=== PATIENT | female | born 1985 | race Caucasian/White ===

== ENCOUNTER 2016-07-08 15:40 | Emergency (ER) | payer MEDICAID ==
[2016-07-08] MEDS ORDERED: guaiFENesin/DEXTROMETHORPHAN 10 ML UDC PO STA (17:22)
[2016-07-08] MEDS ORDERED: IBUPROFEN 400 MG TABLET PO STA (17:58)
[2016-07-08] MEDS ORDERED: BENZONATATE 100 MG CAPSULE PO STA (17:59)
[2016-07-08] MEDS ORDERED: IBUPROFEN 400 MG TABLET PO ONE (18:16)
[2016-07-08] MEDS ORDERED: BENZONATATE 100 MG CAPSULE PO ONE (18:16)
== END 2016-07-08 18:41 | disposition home or self-care (01) ==
DX: J40 Bronchitis, not specified as acute or chronic (principal); F17.200 Nicotine dependence, unspecified, uncomplicated; M79.7 Fibromyalgia
CPT/HCPCS: 71020; 81025; 87275; 87276; 99283; A9270

== ENCOUNTER 2016-12-30 21:01 | Emergency (ER) | payer MEDICAID ==
--- NOTE | 2016-12-30 21:11 | ED Physician Documentation ---
PD HPI LOWER EXT INJURY - Stated complaint Stated Complaint: KNEE PX - Chief complaint Chief Complaint: Ext Problem - History obtained from History obtained from: Patient - History of Present Illness PD HPI LOW EXT INJURY LOCATION: Left, Knee Type of injury: Other (no injury) Timing - onset: How many days ago (few) Worsened by: Moving, Other (weight bearing.) Similar symptoms before: Has not had sx before - Treatment prior to arrival Treatment prior to arrival: Ibuprofen 4 hours prior to arrival. - Additional information Additional information: The patient is a 31-year-old female who presents with left knee pain that started about 2 days ago, and has been getting progressively worse. She denies any specific injury, but states the pain started after she tried doing the splits. The pain is worse with flexion of her knee or with weightbearing. 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 She denies history of similar symptoms in the past. Review of Systems Constitutional: denies: Fever Respiratory: denies: Dyspnea Skin: denies: Rash Musculoskeletal: reports: Joint pain (left knee), Pain with weight bearing. 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 - Present Medications Home Medications: Ambulatory Orders Medication Instructions Recorded Confirmed Amox/Clav 875/125 [Augmentin] 1 each PO Q12H #14 tablet 09/23/16 Oxycodone HCl/Acetaminophen 1 - 2 each PO Q6HR PRN #12 tablet 09/23/16 [Percocet 5-325 mg Tablet] HYDROcod/ACETAM 5/325 [[place] 5/325] 1 - 2 ea PO Q6H PRN #20 tablet 12/30/16 - Allergies Allergies/Adverse Reactions: Allergies Allergy/AdvReac Type Severity Reaction Status Date / Time codeine AdvReac Intermediate Rash Verified 08/10/15 22:39 Penicillins AdvReac Intermediate Rash Verified 08/10/15 22:39 - Social History Does the pt smoke?: Yes Smoking Status: Current every day smoker Does the pt drink ETOH?: Yes Does the pt have substance abuse?: Yes - Immunizations Immunizations are current?: Yes Immunizations: TDAP current <10years - POLST Patient has POLST: No PD ED PE NORMAL - Vitals Vital signs reviewed: Yes (Initially hypertensive) - General General: Alert and oriented X 3, Well developed/nourished - HEENT HEENT: Atraumatic - Respiratory Respiratory: No respiratory distress - Derm Derm: No rash - Extremities Extremities: No deformity, No edema, No calf tenderness / cord, Other (There is tenderness to palpation over the infrapatellar aspect of the left knee anteriomedially. There is no swelling, erythema, or warmth to palpation. No effusion is detected. There is no tenderness to palpation along the medial joint line, lateral joint line, or the popliteal fossa. She is able to extend fully and can flex to 90, although flexion exacerbates the discomfort. There is no ligamentous instability detected. Distal neurovascular is intact.) - Neuro Neuro: Alert and oriented X 3, No motor deficit, No sensory deficit Results - Vitals Vitals: Oxygen O2 Source Room air - Rads (name of study) left knee Radiology: Prelim report reviewed, EMP read contemporaneously, See rad report ( Normal knee radiography.) PD MEDICAL DECISION MAKING - ED course Complexity details: reviewed results, re-evaluated patient, considered differential, d/w patient ED course: The patient's presentation is most consistent with strain of the left knee. I suspect her doing the splits was the exacerbating event. X-ray of the knee reveals no acute bony abnormality. Treatment in the emergency department included application of a knee immobilizer. Vicodin one tablet was administered orally. I discussed with her the expected course of injury, symptomatic treatment and outpatient follow-up, as well as potentially worrisome signs or symptoms that should prompt reevaluation in the emergency department. She is being discharged with prescription for Vicodin, 20 tablets. Departure - Departure Disposition: 01 Home, Self Care Clinical Impression: Knee strain Qualifiers: Encounter type: initial encounter Laterality: left Qualified Code(s): S86.912A - Strain of unspecified muscle(s) and tendon(s) at lower leg level, left leg, initial encounter Condition: Stable Instructions: ED Sprain Knee Prescriptions: HYDROcod/ACETAM 5/325 [[place] 5/325] 1 - 2 ea PO Q6H PRN #20 tablet PRN Reason: Pain Comments: Use the knee immobilizer for comfort. Apply icepack intermittently for the next 3 or 4 days. Continue using ibuprofen, up to 800 mg 3 times daily. You can use Vicodin as prescribed if needed for pain. Follow up with primary physician within one to 2 weeks. Call to schedule appointment. Return to the emergency department if you develop increasing pain, swelling or redness of his knee, or otherwise worsening symptoms. Forms: Activity restrictions Discharge Date/Time: 12/30/16 22:43
--- NOTE | 2016-12-30 22:07 | XRAY Preliminary Report ---
Exam: XR Knee 4 View LT IMPRESSION: Normal knee radiography. [facility] SITE ID: [id number]
--- NOTE | 2016-12-30 22:10 | XRAY Report ---
EXAM: LEFT KNEE RADIOGRAPHY EXAM DATE: 12/30/2016 09:54 PM. CLINICAL HISTORY: Left knee pain. COMPARISON: None. TECHNIQUE: 4 views. FINDINGS: Bones: Normal. No fractures or bone lesions. Joints: Normal. No effusion. No subluxations. Soft Tissues: Normal. No soft tissue swelling. IMPRESSION: Normal knee radiography. [facility] Referring Provider Line: [phone] SITE ID: [id number]
[2016-12-30] MEDS ORDERED: HYDROcod/ACET 5/325 Prepack 6 PO STA (22:20)
[2016-12-30] MEDS ORDERED: HYDROcod/ACET 5/325 Prepack 6 PO ONE (22:27)
[2016-12-30 22:44] VITALS: BP 110/70
== END 2016-12-30 22:43 | disposition home or self-care (01) ==
LOC: ED 21:01
DX: S86.912A Strain of unspecified muscle(s) and tendon(s) at lower leg level, left leg, initial encounter (principal); X50.1XXA Overexertion from prolonged static or awkward postures, initial encounter; F17.200 Nicotine dependence, unspecified, uncomplicated
CPT/HCPCS: 99283

== ENCOUNTER 2017-08-24 15:20 | Emergency (ER) | payer MEDICAID ==
[2017-08-24 15:25] VITALS: BP 140/99
[2017-08-24 15:43] LABS: BILIRUBIN,URINE NEGATIVE (NEGATIVE); GLUCOSE, URINE (UA) NEGATIVE (NEGATIVE); KETONES,URINE (UA) NEGATIVE (NEGATIVE); LEUKOCYTE ESTERASE, URINE NEGATIVE (NEGATIVE); NITRITE,URINE NEGATIVE (NEGATIVE); OCCULT BLOOD,URINE TRACE-LYSE (NEGATIVE); PH,URINE 7.5 PH (5.0-7.5); PROTEIN,URINE NEGATIVE (NEGATIVE); UROBILINOGEN,URINE 0.2 (NORMAL) E.U./dL (NORMAL)
[2017-08-24 15:46] LABS: CLARITY,URINE CLEAR (CLEAR); HCG UR QUAL NEGATIVE
--- NOTE | 2017-08-24 16:01 | ED Physician Documentation ---
PD HPI FEMALE - Stated complaint Stated Complaint: NAUSEA/ABD PX - Chief complaint Chief Complaint: General - History obtained from History obtained from: Patient, Family - History of Present Illness Timing - onset: How many weeks ago (6-8) Timing - duration: Weeks (6-8) Timing - details: Gradual onset, Still present, Waxing and waning Associated symptoms: Back pain, Pelvic pain, Vaginal discharge, Dysuria, Urinary frequency Contributing factors: Sexually active, Exposed to STD (had chlamydia 8 months ago) Similar symptoms before: Diagnosis (chlamydia/UTI) Recently seen: Not recently seen - Additional information Additional information: 31-year-old female has been having some lower abdominal cramping and urinary symptoms for about 6-8 weeks. She did take some amoxicillin that she thought helped somewhat but her symptoms are now worse and she is come in for treatment. Review of Systems Constitutional: reports: Fatigue. denies: Fever Eyes: denies: Decreased vision Ears: denies: Ear pain Nose: denies: Congestion Throat: denies: Sore throat Cardiac: denies: Chest pain / pressure, Palpitations Respiratory: denies: Dyspnea, Cough GI: reports: Abdominal Pain, Nausea. 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 - Present Medications Home Medications: Ambulatory Orders Medication Instructions Recorded Confirmed HYDROcod/ACETAM 5/325 [[place] 5/325] 1 - 2 ea PO Q6H PRN #12 tablet 08/24/17 - Allergies Allergies/Adverse Reactions: Allergies Allergy/AdvReac Type Severity Reaction Status Date / Time codeine AdvReac Intermediate Rash Verified 08/24/17 15:25 Penicillins AdvReac Intermediate Rash Verified 08/24/17 15:25 - Social History Does the pt smoke?: Yes Smoking Status: Current every day smoker Does the pt drink ETOH?: Yes Does the pt have substance abuse?: Yes - Immunizations Immunizations are current?: Yes Immunizations: TDAP current <10years - POLST Patient has POLST: No PD ED PE NORMAL - Vitals Vital signs reviewed: Yes (Hypertensive) - General General: Alert and oriented X 3, No acute distress, Well developed/nourished - HEENT HEENT: Atraumatic, PERRL - Neck Neck: Supple, no meningeal sign - Respiratory Respiratory: No respiratory distress - Abdomen Abdomen: Normal bowel sounds, Soft, Non distended, No organomegaly, Other (mild suprapubic tenderness) - Back Back: No CVA TTP, No spinal TTP - Derm Derm: Normal color, Warm and dry, No rash - Extremities Extremities: No deformity, No edema - Neuro Neuro: Alert and oriented X 3, 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 No: Vaginal Bleeding, Adnexal Mass Results - Vitals Vitals: Vital Signs - 24 hr 08/24/17 15:23 Temperature 36.8 C Heart Rate 99 Respiratory 18 Rate Blood Pressure 140/99 H O2 Saturation 100 Oxygen O2 Source Room air - Labs Labs: Laboratory Tests 08/24/17 15:35 Urine Color YELLOW Urine Clarity CLEAR Urine pH 7.5 Ur Specific [place] 1.020 Urine Protein NEGATIVE Urine Glucose (UA) NEGATIVE Urine Ketones NEGATIVE Urine Occult Blood TRACE-LYSE Urine Nitrite NEGATIVE Urine Bilirubin NEGATIVE Urine Urobilinogen 0.2 (NORMAL) Ur Leukocyte Esterase NEGATIVE Ur Microscopic Review NOT INDICATED Urine Culture Comments NOT INDICATED Urine HCG, Qual NEGATIVE Procedures - Bedside sono Bedside sono by EMP: With use of bedside ultrasound the kidneys are examined both are without evidence of hydronephrosis and are without sonographic tenderness. PD MEDICAL DECISION MAKING - ED course Complexity details: reviewed results, re-evaluated patient, considered differential, d/w patient, d/w family ED course: 31-year-old female with suprapubic pain and cramping with urinary symptoms has a negative urinalysis and she is concerned about the possibility of STD. A pelvic exam reveals a cervical discharge the cervix is not friable the culture is obtained and the patient is treated for GC and chlamydia. She does have cervical motion tenderness on exam that reproduces her symptoms. I suspect she does have chlamydia again. Departure - Departure Disposition: 01 Home, Self Care Clinical Impression: STD (female) Condition: Stable Instructions: ED Chlamydia GC Poss Culture Pend Follow-Up: [facility] [Provider Group] Prescriptions: HYDROcod/ACETAM 5/325 [[place] 5/325] 1 - 2 ea PO Q6H PRN #12 tablet PRN Reason: Pain Comments: Today you were treated for presumed chlamydia and should have some improvement in her symptoms over the next 2 days. Cultures should be available next week. It is important to have your partner treated as well. Forms: Activity restrictions
[2017-08-24] MEDS ORDERED: cefTRIAXone 250 MG VIAL IM STA (16:21)
[2017-08-24] MEDS ORDERED: AZITHROMYCIN 250 MG TABLET PO STA (16:21)
[2017-08-24] MEDS ORDERED: LIDOCAINE 1% 2 ML VIAL SUBQ ONE (16:21)
== END 2017-08-24 16:43 | disposition home or self-care (01) ==
LOC: ED 15:20
DX: A64 Unspecified sexually transmitted disease (principal); M79.7 Fibromyalgia; F17.200 Nicotine dependence, unspecified, uncomplicated
CPT/HCPCS: 81003; 81025; 87491; 87591; 96372; 99283; A9270; 81001; 87086

== ENCOUNTER 2017-09-15 23:12 | Emergency (ER) | payer MEDICAID ==
[2017-09-16] MEDS ORDERED: KETOROLAC 60 MG/2 ML VIAL IM STA (00:38)
[2017-09-16] MEDS ORDERED: DEXAMETHASONE 10 MG/ML VIAL PO STA (00:38)
--- NOTE | 2017-09-16 00:50 | ED Physician Documentation ---
History of Present Illness - Stated complaint Stated Complaint: RT FOOT PX - Chief complaint Chief Complaint: Ext Problem - History obtained from History obtained from: Patient, Friend - History of Present Illness Timing: Yesterday - Additonal information Additional information: 31-year-old female is began to have some pain in her right great toe yesterday and this pain was much worse throughout the day today she had to call out on work. She is coming to the emergency department tonight with a sore right great toe and pain with weightbearing. She states the pain is exquisite and even taking her sock off is extremely painful. She does not have any explanation for why this pain is hurting now she does not have any injury. Review of Systems Constitutional: denies: Fever, Chills, Myalgias Eyes: denies: Decreased vision Ears: denies: Ear pain Nose: denies: Congestion Throat: denies: Sore throat Cardiac: denies: Chest pain / pressure Respiratory: denies: Dyspnea, Cough GI: denies: Abdominal Pain, Nausea, Vomiting Skin: denies: Rash Musculoskeletal: reports: Joint pain, Joint swelling, Pain with weight bearing. 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 - Present Medications Home Medications: Ambulatory Orders Medication Instructions Recorded Confirmed HYDROcod/ACETAM 5/325 [[place] 5/325] 1 - 2 ea PO Q6H PRN #12 tablet 08/24/17 HYDROcod/ACETAM 5/325 [[place] 5/325] 1 - 2 ea PO Q6H PRN #15 tablet 09/16/17 - Allergies Allergies/Adverse Reactions: Allergies Allergy/AdvReac Type Severity Reaction Status Date / Time codeine AdvReac Intermediate Rash Verified 09/15/17 23:49 Penicillins AdvReac Intermediate Rash Verified 09/15/17 23:49 - Social History Does the pt smoke?: Yes Smoking Status: Current every day smoker Does the pt drink ETOH?: Yes Does the pt have substance abuse?: Yes - Immunizations Immunizations are current?: Yes Immunizations: TDAP current <10years - POLST Patient has POLST: No PD ED PE NORMAL - Vitals Vital signs reviewed: Yes (tachy and hypertensive ) - General General: Alert and oriented X 3, No acute distress, Well developed/nourished - HEENT HEENT: Atraumatic, PERRL, EOMI - Neck Neck: Supple, no meningeal sign - Respiratory Respiratory: No respiratory distress - Derm Derm: Normal color, Warm and dry, No rash - Extremities Extremities: No deformity, No edema, Other (There is exquisit tenderness to brushing up against the right great toe. There is pain with passive flexion/ extension and there is minimal swelling. Distal n/v is intact. ) - Neuro Neuro: No motor deficit, No sensory deficit Eye Opening: Spontaneous Motor: Obeys Commands Verbal: Oriented GCS Score: 15 - Psych Psych: Normal mood, Normal affect Results - Vitals Vitals: Vital Signs - 24 hr 09/15/17 23:45 Temperature 36.8 C Heart Rate 102 H Respiratory 16 Rate Blood Pressure 151/94 H O2 Saturation 99 Oxygen O2 Source Room air - Rads (name of study) right toes Radiology: Prelim report reviewed (Impression: 1. No acute fracture or dislocation seen.), EMP read indepedently, See rad report PD MEDICAL DECISION MAKING - ED course Complexity details: reviewed results, re-evaluated patient, considered differential, d/w patient, d/w family ED course: 31-year-old female without injury to her foot has developed acute right great toe pain that is exquisite. Her course is consistent with acute gout and an x- ray of the toes without evidence of fracture. She is treated here in the emergency department with dexamethasone and Toradol. Departure - Departure Disposition: 01 Home, Self Care Clinical Impression: Gout attack Qualifiers: Gout site: toe Gout etiology: unspecified cause Laterality: right Qualified Code(s): M10.9 - Gout, unspecified Condition: Stable Instructions: ED Arthritis Gout, ED Diet Gout Follow-Up: [facility] [Provider Group] Prescriptions: HYDROcod/ACETAM 5/325 [[place] 5/325] 1 - 2 ea PO Q6H PRN #15 tablet PRN Reason: Pain Forms: Activity restrictions
[2017-09-16] MEDS ORDERED: CHERRY SYRUP 10 ML UDC PO ONE (00:52)
--- NOTE | 2017-09-16 01:22 | XRAY Report ---
EXAM: RIGHT TOE RADIOGRAPHY EXAM DATE: 09/16/2017 01:10 AM. CLINICAL HISTORY: R great toe pain. COMPARISON: 02/17/2007. TECHNIQUE: 3 views. FINDINGS: Bones: No fractures seen. Joints: No dislocation. Joint spaces appear intact. Soft Tissues: Mild soft tissue swelling. IMPRESSION: 1. No acute fracture or dislocation seen. [facility] Referring Provider Line: [phone] SITE ID: [id number]
--- NOTE | 2017-09-16 01:22 | XRAY Preliminary Report ---
Exam: XR TOE(S) RT IMPRESSION: 1. No acute fracture or dislocation seen. [facility] SITE ID: [id number]
[2017-09-16 01:37] VITALS: BP 115/78
== END 2017-09-16 01:37 | disposition home or self-care (01) ==
LOC: ED 23:12
DX: M10.9 Gout, unspecified (principal); F17.200 Nicotine dependence, unspecified, uncomplicated
CPT/HCPCS: 73660; 96372; 99283; A9270

== ENCOUNTER 2018-04-23 14:23 | Emergency (ER) | payer MEDICAID ==
[2018-04-23] MEDS ORDERED: METOCLOPRAMIDE 10 MG/2 ML VIAL IVP STA (14:31)
[2018-04-23] MEDS ORDERED: SODIUM CHLORIDE 0.9% 1,000 ML IV ONE (14:31)
[2018-04-23 15:14] LABS: BASOPHILS % (AUTO) 0.5 %; EOSINOPHILS # (AUTO) 0.2 10^3/uL (0.0-0.7); EOSINOPHILS % (AUTO) 2.4 %; HGB - HEMOGLOBIN 13.3 g/dL (12.0-16.0); LYMPHOCYTES # (AUTO) 4.5 10^3/uL (1.5-3.5); LYMPHOCYTES % (AUTO) 48.8 %; MEAN CORPUSCULAR HEMOGLOBIN 31.1 pg (27.0-31.0); MEAN CORPUSCULAR HGB CONC 34.7 g/dL (32.0-36.0); MEAN CORPUSCULAR VOLUME 89.7 fL (81.0-99.0); MEAN PLATELET VOLUME 10.5 fL (7.9-10.8); MONOCYTES # (AUTO) 0.6 10^3/uL (0.0-1.0); MONOCYTES % (AUTO) 6.5 %; NEUTROPHILS # (AUTO) 3.8 10^3/uL (1.5-6.6); NEUTROPHILS % (AUTO) 41.8 %; PLT - PLATELET COUNT 190 10^3/uL (130-450); RED BLOOD COUNT 4.28 10^6/uL (4.20-5.40); RED CELL DISTRIBUTION WIDTH 12.4 % (12.0-15.0); WHITE BLOOD COUNT 9.2 x10^3/uL (4.8-10.8)
[2018-04-23 15:23] LABS: ALBUMIN/GLOBULIN RATIO 1.3 (1.0-2.2); BILIRUBIN,TOTAL 0.4 mg/dL (0.2-1.0); CALCIUM 8.6 mg/dL (8.5-10.3); CREATININE 0.6 mg/dL (0.4-1.0); TOTAL PROTEIN 7.1 g/dL (6.7-8.2)
[2018-04-23 15:27] LABS: BILIRUBIN,URINE NEGATIVE (NEGATIVE); GLUCOSE, URINE (UA) NEGATIVE (NEGATIVE); KETONES,URINE (UA) NEGATIVE (NEGATIVE); LEUKOCYTE ESTERASE, URINE NEGATIVE (NEGATIVE); NITRITE,URINE NEGATIVE (NEGATIVE); OCCULT BLOOD,URINE TRACE-LYSE (NEGATIVE); PROTEIN,URINE NEGATIVE (NEGATIVE); UROBILINOGEN,URINE 0.2 (NORMAL) E.U./dL (NORMAL)
[2018-04-23 15:31] LABS: CLARITY,URINE CLEAR (CLEAR)
[2018-04-23] MEDS ORDERED: AMOXICILLIN 250 MG CAPSULE PO STA (16:28)
--- NOTE | 2018-04-23 16:28 | ED Physician Documentation ---
History of Present Illness - Stated complaint Stated Complaint: N/V/WEAKNESS - Chief complaint Chief Complaint: Abd Pain - History obtained from History obtained from: Patient - Additonal information Additional information: 32-year-old female presents the emergency department with increasing generalized weakness with nausea and episodes of vomiting. The patient also reports a generalized abdominal cramping. The patient denies any focal area of abdominal pain or ongoing constant abdominal pain. The patient also reports a dental infection and is in the process of seeing a dentist.The patient denies chest pain, shortness of breath, dysuria or diarrhea. Symptoms are described as moderate. No other associated symptoms. No triggering factors. No relieving factors. Review of Systems Constitutional: reports: Fever, Chills, Fatigue Eyes: denies: Decreased vision Ears: denies: Ear pain Nose: denies: Rhinorrhea / runny nose Throat: reports: Dental pain / toothache Cardiac: denies: Chest pain / pressure Respiratory: denies: Cough GI: reports: Abdominal Pain, Nausea, Vomiting. 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: Yes Does the pt have substance abuse?: Yes - Immunizations Immunizations are current?: Yes Immunizations: TDAP current <10years - POLST Patient has POLST: No PD ED PE NORMAL - General General: Alert and oriented X 3, No acute distress - HEENT HEENT: Atraumatic, PERRL, EOMI, Ears normal. No: Dentition benign (The patient has multiple dental caries, on the right lower jaw several of the caries are infected with surrounding gingivitis. There is no evidence of an intraoral abscess or facial abscess or facial cellulitis.) - Neck Neck: Supple, no meningeal sign - Cardiac Cardiac: RRR, Strong equal pulses - Respiratory Respiratory: No respiratory distress, Clear bilaterally - Abdomen Abdomen: Soft, Non tender, Non distended - Derm Derm: Normal color - Extremities Extremities: No deformity, No edema - Neuro Neuro: Alert and oriented X 3, Normal speech - Psych Psych: Normal mood Results - Vitals Vitals: Vital Signs - 24 hr 04/23/18 04/23/18 14:27 16:36 Temperature 36.1 C L Heart Rate 95 84 Respiratory 18 16 Rate Blood Pressure 149/91 H 144/88 H O2 Saturation 100 100 Oxygen O2 Source Room air - Labs Labs: Laboratory Tests 04/23/18 04/23/18 04/23/18 14:59 14:59 14:59 WBC 9.2 RBC 4.28 Hgb 13.3 Hct 38.4 MCV 89.7 MCH 31.1 H MCHC 34.7 RDW 12.4 Plt Count 190 MPV 10.5 Neut # (Auto) 3.8 Lymph # (Auto) 4.5 H [place] # (Auto) 0.6 Eos # (Auto) 0.2 Baso # (Auto) 0.0 Absolute Nucleated RBC 0.01 Nucleated RBC % 0.1 Sodium 134 L Potassium 3.9 Chloride 104 Carbon Dioxide 25 Anion Gap 5.0 L BUN 13 Creatinine 0.6 Estimated GFR (MDRD) 115 Glucose 99 Calcium 8.6 Total Bilirubin 0.4 AST 16 ALT 17 Alkaline Phosphatase 33 L Total Protein 7.1 Albumin 4.0 Globulin 3.1 Albumin/Globulin Ratio 1.3 Lipase 31 HCG, Quant < 0.60 Urine Color Urine Clarity Urine pH Ur Specific [place] Urine Protein Urine Glucose (UA) Urine Ketones Urine Occult Blood Urine Nitrite Urine Bilirubin Urine Urobilinogen Ur Leukocyte Esterase Ur Microscopic Review Urine Culture Comments 04/23/18 15:20 WBC RBC Hgb Hct MCV MCH MCHC RDW Plt Count MPV Neut # (Auto) Lymph # (Auto) [place] # (Auto) Eos # (Auto) Baso # (Auto) Absolute Nucleated RBC Nucleated RBC % Sodium Potassium Chloride Carbon Dioxide Anion Gap BUN Creatinine Estimated GFR (MDRD) Glucose Calcium Total Bilirubin AST ALT Alkaline Phosphatase Total Protein Albumin Globulin Albumin/Globulin Ratio Lipase HCG, Quant Urine Color YELLOW Urine Clarity CLEAR Urine pH 7.0 Ur Specific [place] 1.010 Urine Protein NEGATIVE Urine Glucose (UA) NEGATIVE Urine Ketones NEGATIVE Urine Occult Blood TRACE-LYSE Urine Nitrite NEGATIVE Urine Bilirubin NEGATIVE Urine Urobilinogen 0.2 (NORMAL) Ur Leukocyte Esterase NEGATIVE Ur Microscopic Review NOT INDICATED Urine Culture Comments NOT INDICATED PD MEDICAL DECISION MAKING - ED course ED course: On reevaluation the patient is resting comfortably and her symptoms appear to be under control. On reevaluation the patient has no abdominal pain and on physical exam the patient has no tenderness to palpation or rebound tenderness or peritoneal signs. Presently the patient has no clinical evidence of appendicitis or acute cholecystitis or ovarian torsion or bowel obstruction. Presently I do not think imaging in the emergency department would be of much utility. The patient currently appears appropriate for discharge and further workup as an outpatient. She will be treated for a dental infection with oral antibiotics. The patient is going to follow-up with dental. I discussed warning signs for appendicitis and various other acute surgical etiologies and advised the patient to return to the emergency department immediately for any worsening or any concerns. Departure - Departure Disposition: 01 Home, Self Care Clinical Impression: Nausea and vomiting, Abdominal pain, Dental infection Condition: Good Instructions: ED Abdominal Pain Appendx Poss, ED Abscess Tooth, ED Nausea Vomiting Prescriptions: RX: Amoxicillin 875 mg PO BID #20 tablet Famotidine [Pepcid] 20 mg PO BID #20 tablet Metoclopramide [Reglan] 10 mg PO Q6H PRN #30 tablet PRN Reason: Nausea / Vomiting Comments: Please follow-up with primary care for further workup and evaluation of your symptoms. You may need a referral to gastroenterology. Please return to the emergency department immediately for any worsening symptoms or any concerns. If your symptoms worsen or get localized to one area please return so we can perform a CT scan to rule out appendicitis and various other acute surgical etiologies. Discharge Date/Time: 04/23/18 16:38
[2018-04-23 16:37] VITALS: BP 144/88
== END 2018-04-23 16:38 | disposition home or self-care (01) ==
LOC: ED 14:23
DX: R11.2 Nausea with vomiting, unspecified (principal); R10.9 Unspecified abdominal pain; K04.7 Periapical abscess without sinus; F17.200 Nicotine dependence, unspecified, uncomplicated; M79.7 Fibromyalgia; G89.29 Other chronic pain
CPT/HCPCS: 36415; 80053; 81003; 83690; 84702; 85025; 96361; 96374; 99283; A9270; J2765; 81001; 87086

== ENCOUNTER 2018-06-05 22:52 | Emergency (ER) | payer MEDICAID ==
[2018-06-05 23:00] VITALS: BP 142/96
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
[2018-06-05] MEDS ORDERED: BACITRACIN OINT TOP STA (23:22)
[2018-06-05] MEDS ORDERED: cephALEXin 250 MG CAPSULE PO STA (23:23)
[2018-06-05] MEDS ORDERED: SULFAMETH/TRIMETH DS 800/160 MG TABLET PO STA (23:23)
== END 2018-06-05 23:38 | disposition home or self-care (01) ==
LOC: ED 22:52
DX: T25.221A Burn of second degree of right foot, initial encounter (principal); T31.0 Burns involving less than 10% of body surface; X10.2XXA Contact with fats and cooking oils, initial encounter; L03.115 Cellulitis of right lower limb; F17.200 Nicotine dependence, unspecified, uncomplicated
CPT/HCPCS: 99282; 99283; A9270

== ENCOUNTER 2018-09-16 21:38 | Emergency (ER) | payer OTHER, MEDICAID ==
[2018-09-16 22:08] LABS: BILIRUBIN,URINE NEGATIVE (NEGATIVE); GLUCOSE, URINE (UA) NEGATIVE (NEGATIVE); KETONES,URINE (UA) NEGATIVE (NEGATIVE); LEUKOCYTE ESTERASE, URINE NEGATIVE (NEGATIVE); NITRITE,URINE NEGATIVE (NEGATIVE); OCCULT BLOOD,URINE TRACE-LYSE (NEGATIVE); PH,URINE 5.5 PH (5.0-7.5); PROTEIN,URINE NEGATIVE (NEGATIVE); UROBILINOGEN,URINE 0.2 (NORMAL) E.U./dL (NORMAL)
[2018-09-16 22:11] LABS: CLARITY,URINE CLEAR (CLEAR); HCG UR QUAL NEGATIVE
--- NOTE | 2018-09-16 22:11 | ED Physician Documentation ---
PD HPI ABD PAIN - Stated complaint Stated Complaint: NAUSEA/FEVER/AB PX - Chief complaint Chief Complaint: Abd Pain - History obtained from History obtained from: Patient - History of Present Illness Timing - onset: How many days ago (4) Timing - duration: Days (4) Timing - details: Gradual onset, Still present Quality: Cramping, Aching, Pain Location: Suprapubic (She has had cramping pain in the very lower abdomen radiating into the back. It is associated with some nausea. She did notice some vaginal discharge. She did not have any dysuria. She has been able to eat without any change in the pain.) Radiation: Lower back Improved by: No: Eating Worsened by: No: Eating Associated symptoms: Fever (the past 3 days intermittently), Nausea, Vaginal dc. No: Vomiting, Diarrhea, Dysuria, Loss of appetite, Vaginal bleeding Similar symptoms before: Diagnosis (has had vaginitis in the past.) Recently seen: Not recently seen Review of Systems Constitutional: reports: Fever Nose: denies: Rhinorrhea / runny nose, Congestion Throat: denies: Sore throat Respiratory: denies: Cough GI: reports: Abdominal Pain, Nausea. denies: Vomiting, Diarrhea : reports: Discharge. 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 - Present Medications Home Medications: Ambulatory Orders Medication Instructions Recorded Confirmed Metronidazole [Flagyl] 500 mg PO BID #20 tablet 09/16/18 Ondansetron Odt [Zofran] 4 mg TL Q6H PRN #10 tablet 09/16/18 Hydrocodone/Acetaminophen [[place] 1 each PO Q6H PRN #15 tablet 09/17/18 5-325 Tablet] - Allergies Allergies/Adverse Reactions: Allergies Allergy/AdvReac Type Severity Reaction Status Date / Time codeine AdvReac Intermediate Rash Verified 09/16/18 21:46 - Social History Does the pt smoke?: Yes Smoking Status: Current every day smoker Does the pt drink ETOH?: Yes Does the pt have substance abuse?: Yes - Immunizations Immunizations are current?: Yes Immunizations: TDAP current <10years - POLST Patient has POLST: No PD ED PE NORMAL - Vitals Vital signs reviewed: Yes - General General: Well developed/nourished - HEENT HEENT: Pharynx benign - Neck Neck: Supple, no meningeal sign, No adenopathy - Cardiac Cardiac: RRR, No murmur - Respiratory Respiratory: Clear bilaterally - Abdomen Abdomen: Normal bowel sounds, Soft, Non distended, No organomegaly, Other - Female Female : Digital Analyst present, Other (external normal. Vault with mucous/white thin discharge and some mild cervicitis. Pain with cervical motion. ) - Derm Derm: Normal color, Warm and dry Results - Vitals Vitals: Vital Signs - 24 hr 09/16/18 09/16/18 21:42 23:44 Temperature 36.5 C 36.4 C L Heart Rate 97 80 Respiratory 18 16 Rate Blood Pressure 139/85 H 139/118 H O2 Saturation 100 100 Oxygen O2 Source Room air - Labs Labs: Microbiology 09/16/18 23:00 Wet Prep - Final Genital - Cervix Laboratory Tests 09/16/18 21:51 Urine Color YELLOW Urine Clarity CLEAR Urine pH 5.5 Ur Specific [place] >=1.030 H Urine Protein NEGATIVE Urine Glucose (UA) NEGATIVE Urine Ketones NEGATIVE Urine Occult Blood TRACE-LYSE Urine Nitrite NEGATIVE Urine Bilirubin NEGATIVE Urine Urobilinogen 0.2 (NORMAL) Ur Leukocyte Esterase NEGATIVE Ur Microscopic Review NOT INDICATED Urine Culture Comments NOT INDICATED Urine HCG, Qual NEGATIVE Departure - Departure Disposition: 01 Home, Self Care Clinical Impression: Lower abdominal pain, Bacterial vaginitis Condition: Stable Record reviewed to determine appropriate education?: Yes Instructions: ED Vaginitis Trichomonas Prescriptions: Hydrocodone/Acetaminophen [[place] 5-325 Tablet] 1 each PO Q6H PRN #15 tablet PRN Reason: Pain Metronidazole [Flagyl] 500 mg PO BID #20 tablet Ondansetron Odt [Zofran] 4 mg TL Q6H PRN #10 tablet PRN Reason: Nausea / Vomiting Comments: The initial microscopic view of the vaginal swab did show some bacteria called trichomonas. The cultures for other types infection will result in a couple of days. For now we will treat for the trichomonas (which is a type of bacterial vaginitis) with metronidazole twice daily for a week. Take it with food so it does not cause nausea like this evening. Ondansetron if needed for nausea. Use of naproxen or ibuprofen twice daily for the next few days for the pains and cramps. You can use a stool softener if needed for some mild constipation. Recheck if not improved over the next several days. Discharge Date/Time: 09/16/18 23:45
[2018-09-16] MEDS ORDERED: HYDROcod/ACETAM 5/325 MG TABLET PO STA (22:30)
[2018-09-16] MEDS ORDERED: NAPROXEN 250 MG TABLET PO STA (22:30)
[2018-09-16] MEDS ORDERED: DOCUSATE SODIUM 100 MG CAPSULE PO STA (22:30)
[2018-09-16] MEDS ORDERED: metroNIDAZOLE 250 MG TABLET PO STA (23:10)
[2018-09-16] MEDS ORDERED: ONDANSETRON ODT 4 MG TABLET TL STA (23:37)
[2018-09-16 23:44] VITALS: BP 139/118
== END 2018-09-16 23:45 | disposition home or self-care (01) ==
LOC: ED 21:38
DX: A59.01 Trichomonal vulvovaginitis (principal); N72 Inflammatory disease of cervix uteri; F17.200 Nicotine dependence, unspecified, uncomplicated
CPT/HCPCS: 81003; 81025; 87210; 87491; 87591; 99283; A9270; Q0162; 81001; 87086

== ENCOUNTER 2018-12-31 23:34 | Emergency (ER) | payer OTHER, MEDICAID ==
--- NOTE | 2019-01-01 00:40 | ED Physician Documentation ---
PD HPI HEENT - Stated complaint Stated Complaint: DENTAL PAIN - Chief complaint Chief Complaint: Heent - History obtained from History obtained from: Patient - History of Present Illness Timing - onset: How many days ago (2-3) Timing - details: Gradual onset Location: Tooth Improves: Nothing Associated symptoms: No: Fever Recently seen: Not recently seen - Additional information Additional information: c/o pain and yellow/bloody discharge from left lower broken tooth (not recent break to tooth) for 2-3 days, has dental appointment set up for next week. She is here with friend who is registered as ED patient. 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 - Present Medications Home Medications: Ambulatory Orders Medication Instructions Recorded Confirmed Metronidazole [Flagyl] 500 mg PO BID #20 tablet 09/16/18 Ondansetron Odt [Zofran] 4 mg TL Q6H PRN #10 tablet 09/16/18 Hydrocodone/Acetaminophen [[place] 1 each PO Q6H PRN #15 tablet 09/17/18 5-325 Tablet] Cephalexin [Keflex] 500 mg PO Q6H #28 capsule 01/01/19 Hydrocodone/Acetaminophen 1 - 2 each PO Q6H PRN #14 tablet 01/01/19 [Hydrocodon-Acetaminophen 5-325] - Allergies Allergies/Adverse Reactions: Allergies Allergy/AdvReac Type Severity Reaction Status Date / Time codeine AdvReac Intermediate Rash Verified 12/31/18 23:41 - Social History Does the pt smoke?: Yes Smoking Status: Current every day smoker Does the pt drink ETOH?: Yes Does the pt have substance abuse?: Yes - Immunizations Immunizations are current?: Yes Immunizations: TDAP current <10years - POLST Patient has POLST: No PD ED PE NORMAL - Vitals Vital signs reviewed: Yes - General General: Alert and oriented X 3, No acute distress, Well developed/nourished - Neck Neck: Supple, no meningeal sign PD ED PE EXPANDED - HEENT HEENT: Other (no facial swelling, erythema, tenderness) HEENT Visual: 1 - deformity (broken tooth with tenderness to percussion, trace gingival swelling; no active discharge.) Results - Vitals Vitals: Vital Signs - 24 hr 12/31/18 01/01/19 01/01/19 23:37 01:35 01:38 Temperature 36.7 C 36.4 C L Heart Rate 98 76 Respiratory 16 15 Rate Blood Pressure 131/78 H 122/84 H O2 Saturation 100 10 L Oxygen O2 Source Room air PD MEDICAL DECISION MAKING - ED course Complexity details: considered differential, d/w patient Departure - Departure Disposition: 01 Home, Self Care Clinical Impression: Dental infection Condition: Good Health Concerns: Dental pain, possible infection Plan of Treatment: antibiotic and analgesic as prescribed Care Goals: pain control, elimination of infection Assessment: see diagnoses Instructions: ED Tooth Pain Prescriptions: Cephalexin [Keflex] 500 mg PO Q6H #28 capsule Hydrocodone/Acetaminophen [Hydrocodon-Acetaminophen 5-325] 1 - 2 each PO Q6H PRN #14 tablet PRN Reason: pain Discharge Date/Time: 01/01/19 01:39
[2019-01-01] MEDS ORDERED: cephALEXin 250 MG CAPSULE PO STA (01:07)
[2019-01-01] MEDS ORDERED: HYDROcod/ACETAM 5/325 MG TABLET PO STA (01:07)
[2019-01-01] MEDS ORDERED: KETOROLAC 60 MG/2 ML VIAL IM STA (01:08)
[2019-01-01 01:36] VITALS: BP 122/84
== END 2019-01-01 01:39 | disposition home or self-care (01) ==
LOC: ED 23:34
DX: K04.7 Periapical abscess without sinus (principal); S02.5XXA Fracture of tooth (traumatic), initial encounter for closed fracture; F17.200 Nicotine dependence, unspecified, uncomplicated
CPT/HCPCS: 99283; A9270

== ENCOUNTER 2019-02-15 15:06 | Emergency (ER) | payer OTHER, MEDICAID ==
--- NOTE | 2019-02-15 17:41 | ED Physician Documentation ---
PD HPI HEENT - Stated complaint Stated Complaint: JAW PX - Chief complaint Chief Complaint: General - History obtained from History obtained from: Patient - History of Present Illness Timing - onset: How many weeks ago (2) Timing - duration: Weeks Timing - details: Gradual onset, Still present Location: Left ear, Tooth Worsens: Everything Associated symptoms: Congestion, Headache. No: Fever Similar symptoms before: Diagnosis (bad tooth) Recently seen: Clinic - Additional information Additional information: 33-year-old female has been recently treated for a broken infected tooth in the left lower molar. She has been on some clindamycin and she has not improved she is worsening pain and now she has pain to the whole side of her left face. She has aches and feels fatigued. She has a broken tooth with a large hole in it and she denies any excessive heat or cold sensitivity. She has been to see MAR she is on the clindamycin and has 1 more day left. 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 - Present Medications Home Medications: Ambulatory Orders Medication Instructions Recorded Confirmed Metronidazole [Flagyl] 500 mg PO BID #20 tablet 09/16/18 Ondansetron Odt [Zofran] 4 mg TL Q6H PRN #10 tablet 09/16/18 Hydrocodone/Acetaminophen [[place] 1 each PO Q6H PRN #15 tablet 09/17/18 5-325 Tablet] Cephalexin [Keflex] 500 mg PO Q6H #28 capsule 01/01/19 Hydrocodone/Acetaminophen 1 - 2 each PO Q6H PRN #14 tablet 01/01/19 [Hydrocodon-Acetaminophen 5-325] Amox/Clav 875/125 [Augmentin] 1 each PO Q12H #20 tablet 02/15/19 Hydrocodone/Acetaminophen 1 - 2 each PO Q6H PRN #14 tablet 02/15/19 [Hydrocodon-Acetaminophen 5-325] - Allergies Allergies/Adverse Reactions: Allergies Allergy/AdvReac Type Severity Reaction Status Date / Time codeine AdvReac Intermediate Rash Verified 12/31/18 23:41 - Social History Does the pt smoke?: Yes Smoking Status: Current every day smoker Does the pt drink ETOH?: Yes Does the pt have substance abuse?: Yes - Immunizations Immunizations are current?: Yes Immunizations: TDAP current <10years - POLST Patient has POLST: No PD ED PE NORMAL - Vitals Vital signs reviewed: Yes (hypertensive ) - General General: Alert and oriented X 3, No acute distress, Well developed/nourished - HEENT HEENT: Atraumatic, PERRL, EOMI, Other (There is a broken left lower molar with a deep hole. There is not much tenderness to probing the deep hole and there is not surrounding swelling or drainage. The left TM is inflamed there is tympanosclerosis present bilaterally. The left side of the face is not swollen or tender but it hurts on the whole side of the face. ) - Neck Neck: Supple, no meningeal sign, No bony TTP - Respiratory Respiratory: No respiratory distress - Derm Derm: Normal color, Warm and dry, No rash - Extremities Extremities: No deformity, No edema - Neuro Neuro: Alert and oriented X 3, early breastfeeding care specialist 2-12 intact, No motor deficit, No sensory deficit, Normal speech Eye Opening: Spontaneous Motor: Obeys Commands Verbal: Oriented GCS Score: 15 - Psych Psych: Normal mood, Normal affect Results - Vitals Vitals: Vital Signs - 24 hr 02/15/19 15:12 Temperature 37.0 C Heart Rate 76 Respiratory 16 Rate Blood Pressure 144/75 H O2 Saturation 99 Oxygen O2 Source Room air PD MEDICAL DECISION MAKING - ED course Complexity details: considered differential, d/w patient ED course: 33-year-old female with pain to left lower molar and pain to the left side of her face appears to have the molar situation under control and she has otitis on the left side. We will change her antibiotic to Augmentin she is given a dose of dexamethasone and will place her on some pain medication temporarily as well. Her tooth with a large crack was covered with CAVIT and she was dispensed the CAVIT and instructions on its use. Departure - Departure Disposition: 01 Home, Self Care Clinical Impression: Pain, dental Otitis media Qualifiers: Otitis media type: suppurative Chronicity: acute Laterality: left Recurrence: not specified as recurrent Spontaneous tympanic membrane rupture: without spontaneous rupture Qualified Code(s): H66.002 - Acute suppurative otitis media without spontaneous rupture of ear drum, left ear Condition: Stable Instructions: ED Tooth Pain, ED Otitis Media Acute Adult Follow-Up: [facility] [Provider Group] Prescriptions: Amox/Clav 875/125 [Augmentin] 1 each PO Q12H #20 tablet Hydrocodone/Acetaminophen [Hydrocodon-Acetaminophen 5-325] 1 - 2 each PO Q6H PRN #14 tablet PRN Reason: pain Forms: Activity restrictions
[2019-02-15] MEDS ORDERED: DEXAMETHASONE 10 MG/ML VIAL PO STA (17:44)
[2019-02-15] MEDS ORDERED: CHERRY SYRUP 10 ML UDC PO ONE (17:44)
[2019-02-15 17:55] VITALS: BP 134/77
== END 2019-02-15 17:54 | disposition home or self-care (01) ==
LOC: ED 15:06
DX: K08.89 Other specified disorders of teeth and supporting structures (principal); K03.81 Cracked tooth; H66.002 Acute suppurative otitis media without spontaneous rupture of ear drum, left ear; F17.200 Nicotine dependence, unspecified, uncomplicated
CPT/HCPCS: 99282; 99284; A9270

== ENCOUNTER 2019-05-05 15:41 | Emergency (ER) | payer OTHER, MEDICAID ==
[2019-05-05] MEDS ORDERED: KETOROLAC 60 MG/2 ML VIAL IM STA (16:12)
[2019-05-05] MEDS ORDERED: CHERRY SYRUP 10 ML UDC PO ONE (16:12)
[2019-05-05] MEDS ORDERED: IPRATROPIUM/ALBUTEROL 3 ML NEB INH STA (16:12)
[2019-05-05] MEDS ORDERED: DEXAMETHASONE 10 MG/ML VIAL PO STA (16:12)
--- NOTE | 2019-05-05 16:16 | ED Physician Documentation ---
PD HPI HEENT - Stated complaint Stated Complaint: SORE THROAT - Chief complaint Chief Complaint: Heent - History obtained from History obtained from: Patient, Family - History of Present Illness Timing - onset: Yesterday Timing - duration: Days (2) Timing - details: Gradual onset, Still present Location: Throat Improves: Medication Worsens: Swall[place]ing Associated symptoms: Congestion, Rhinorrhea, Headache, Cough Similar symptoms before: Has not had sx before Recently seen: Not recently seen - Additional information Additional information: 33-year-old female has developed a sore throat and sweats headache abdominal pain vomiting and some shortness of breath. She does have a bit of a cough with this as well she is had a prior history of multiple incidences of otitis. Review of Systems Constitutional: reports: Fever, Chills, Myalgias, Fatigue Eyes: denies: Decreased vision Ears: reports: Ear pain Nose: reports: Rhinorrhea / runny nose, Congestion Throat: reports: Sore throat Cardiac: denies: Chest pain / pressure, Palpitations Respiratory: reports: Cough. 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 - Present Medications Home Medications: Ambulatory Orders Medication Instructions Recorded Confirmed Metronidazole [Flagyl] 500 mg PO BID #20 tablet 09/16/18 Ondansetron Odt [Zofran] 4 mg TL Q6H PRN #10 tablet 09/16/18 Hydrocodone/Acetaminophen [[place] 1 each PO Q6H PRN #15 tablet 09/17/18 5-325 Tablet] Cephalexin [Keflex] 500 mg PO Q6H #28 capsule 01/01/19 Hydrocodone/Acetaminophen 1 - 2 each PO Q6H PRN #14 tablet 01/01/19 [Hydrocodon-Acetaminophen 5-325] Amox/Clav 875/125 [Augmentin] 1 each PO Q12H #20 tablet 02/15/19 Hydrocodone/Acetaminophen 1 - 2 each PO Q6H PRN #14 tablet 02/15/19 [Hydrocodon-Acetaminophen 5-325] Albuterol Sulf [Ventolin Hfa 1 - 2 puffs INH Q4HR PRN #1 inhaler 10/29/19 Inhaler] Amoxicillin 875 mg PO BID #20 tablet 05/05/19 - Allergies Allergies/Adverse Reactions: Allergies Allergy/AdvReac Type Severity Reaction Status Date / Time codeine AdvReac Intermediate Rash Verified 12/31/18 23:41 - Social History Does the pt smoke?: Yes Smoking Status: Current every day smoker Does the pt drink ETOH?: Yes Does the pt have substance abuse?: Yes - Immunizations Immunizations are current?: Yes Immunizations: TDAP current <10years - POLST Patient has POLST: No PD ED PE NORMAL - Vitals Vital signs reviewed: Yes (hypertension) - General General: Alert and oriented X 3, No acute distress, Well developed/nourished - HEENT HEENT: Atraumatic, PERRL, EOMI, Other (There tympanosclerosis bilaterally and distortion of the landmarks on the left. There is erythema tympanosclerosis and distortion on the right. The pharynx is with erythema and swelling with an enlarged uvula and exudate. ) - Neck Neck: Supple, no meningeal sign, No bony TTP - Cardiac Cardiac: RRR, No murmur - Respiratory Respiratory: No respiratory distress, Clear bilaterally - Abdomen Abdomen: Soft, Non tender - Back Back: No CVA TTP, No spinal TTP - Derm Derm: Normal color, Warm and dry, No rash - Extremities Extremities: No deformity, No edema - Neuro Neuro: Alert and oriented X 3, qualifications examiner 2-12 intact, No motor deficit, No sensory deficit, Normal speech Eye Opening: Spontaneous Motor: Obeys Commands Verbal: Oriented GCS Score: 15 - Psych Psych: Normal mood, Normal affect Results - Vitals Vitals: Vital Signs - 24 hr 05/05/19 05/05/19 15:49 16:43 Temperature 37.1 C Heart Rate 87 83 Respiratory 18 14 Rate Blood Pressure 125/82 H O2 Saturation 99 Oxygen O2 Source Room air - Labs Labs: Laboratory Tests 05/05/19 15:52 Group A Strep Rapid POSITIVE H PD MEDICAL DECISION MAKING - ED course Complexity details: reviewed results, re-evaluated patient, considered differential, d/w patient, d/w family ED course: 33-year-old female with a sore throat for 1 day has a positive rapid strep and she does have some tight wheezing and she is given a DuoNeb treatment as well as 10 mg of dexamethasone and 60 mg of Toradol IM Departure - Departure Disposition: 01 Home, Self Care Clinical Impression: Otitis media Qualifiers: Otitis media type: suppurative Chronicity: acute Laterality: right Recurrence: recurrent Spontaneous tympanic membrane rupture: without spontaneous rupture Qualified Code(s): H66.004 - Acute suppurative otitis media without spontaneous rupture of ear drum, recurrent, right ear Pharyngitis Qualifiers: Pharyngitis/tonsillitis etiology: streptococcus Qualified Code(s): J02.0 - Streptococcal pharyngitis Condition: Stable Instructions: ED Otitis Media Acute Adult, ED Strep Pharyngitis Conf Follow-Up: [facility] [Provider Group] Prescriptions: Albuterol Sulf [Ventolin Hfa Inhaler] 1 - 2 puffs INH Q4HR PRN #1 inhaler PRN Reason: Shortness Of Air/Wheezing Amoxicillin 875 mg PO BID #20 tablet Forms: Activity restrictions
[2019-05-05 17:03] VITALS: BP 124/80
== END 2019-05-05 17:02 | disposition home or self-care (01) ==
LOC: ED 15:41
DX: J02.0 Streptococcal pharyngitis (principal); H66.004 Acute suppurative otitis media without spontaneous rupture of ear drum, recurrent, right ear; R06.2 Wheezing; F17.200 Nicotine dependence, unspecified, uncomplicated
CPT/HCPCS: 87430; 94640; 94664; 99283; 99284; A9270

== ENCOUNTER → 2019-08-24 | Outpatient (CLI) | payer MEDICAID, OTHER ==
[2019-08-24 13:42] LABS: BASOPHILS # (AUTO) 0.1 10^3/uL (0.0-0.1); BASOPHILS % (AUTO) 0.8 %; EOSINOPHILS # (AUTO) 0.5 10^3/uL (0.0-0.7); EOSINOPHILS % (AUTO) 5.5 %; HGB - HEMOGLOBIN 13.8 g/dL (12.0-16.0); LYMPHOCYTES % (AUTO) 47.8 %; MEAN CORPUSCULAR HEMOGLOBIN 30.9 pg (27.0-31.0); MEAN CORPUSCULAR HGB CONC 33.5 g/dL (32.0-36.0); MEAN CORPUSCULAR VOLUME 92.4 fL (81.0-99.0); MEAN PLATELET VOLUME 12.5 fL (7.9-10.8); MONOCYTES # (AUTO) 0.6 10^3/uL (0.0-1.0); MONOCYTES % (AUTO) 6.8 %; NEUTROPHILS # (AUTO) 3.3 10^3/uL (1.5-6.6); NEUTROPHILS % (AUTO) 38.7 %; PLT - PLATELET COUNT 214 10^3/uL (130-450); RED BLOOD COUNT 4.46 10^6/uL (4.20-5.40); RED CELL DISTRIBUTION WIDTH 12.6 % (12.0-15.0); WHITE BLOOD COUNT 8.4 x10^3/uL (4.8-10.8)
[2019-08-24 17:44] LABS: HB2 TOTAL 14.2 g/dL; HEMOGLOBIN A1C 0.48 g/dL; HEMOGLOBIN A1C % 5.2 % (4.6-6.2)
== END ==
LOC: LAB.WCP 10:27
PROVIDERS: ATTEND Physician Assistant
DX: Z00.00 Encounter for general adult medical examination without abnormal findings (principal)
CPT/HCPCS: 36415; 80053; 80061; 83036; 83721; 84443; 85025

== ENCOUNTER → 2019-09-07 | Outpatient (CLI) | payer MEDICAID, OTHER ==
[2019-09-07 13:33] LABS: ALBUMIN/GLOBULIN RATIO 1.4 (1.0-2.2); ALKALINE PHOSPHATASE 30 IU/L (42-121); ALT ALANINE AMINOTRANSFERASE 15 IU/L (10-60); AST ASPARTATE AMINOTRANSFERASE 17 IU/L (10-42); BILIRUBIN,TOTAL 0.5 mg/dL (0.2-1.0); BUN - BLOOD UREA NITROGEN 14 mg/dL (6-20); CALCIUM 8.6 mg/dL (8.5-10.3); CARBON DIOXIDE - CO2 21 mmol/L (21-32); CHLORIDE 105 mmol/L (101-111); CHOL/HDL RATIO 3.9 (<4.4); CHOLESTEROL 186 mg/dL; CREATININE 0.5 mg/dL (0.4-1.0); GFR - MDRD 141 (>89); GLUCOSE 100 mg/dL (70-100); HDL CHOLESTEROL 48 mg/dL; LDL CHOLESTEROL,CALCULATED 119 mg/dL; LDL/HDL RATIO 2.5 (<4.4); SODIUM 135 mmol/L (135-145); TOTAL PROTEIN 6.9 g/dL (6.7-8.2); VLDL CHOLESTEROL 19 mg/dL
== END ==
LOC: LAB.WCP 10:23
PROVIDERS: ATTEND Physician Assistant
DX: Z00.00 Encounter for general adult medical examination without abnormal findings (principal)
CPT/HCPCS: 36415; 80053; 80061; 83721; 84443

== ENCOUNTER 2019-10-05 07:00 | Outpatient (CLI) | payer MEDICAID ==
[2019-10-06 19:41] LABS: CANDIDA GROUP DNA NEGATIVE (NEGATIVE); CANDIDA KRUSEI DNA NEGATIVE (NEGATIVE); TRICHOMONAS VAGINALIS DNA NEGATIVE (NEGATIVE)
[2019-10-06 21:21] LABS: TRICHOMONAS VAGINALIS DNA NEGATIVE (NEGATIVE)
== END 2019-10-05 23:59 | disposition home or self-care (01) ==
LOC: LAB.R 07:00
PROVIDERS: ATTEND Obstetrics & Gynecology
DX: Z11.3 Encounter for screening for infections with a predominantly sexual mode of transmission (principal)
CPT/HCPCS: 36415; 80074; 81599; 86592; 86695; 86696; 87389; 87491; 87591; 87661; 87801

== ENCOUNTER 2019-10-05 14:26 | Outpatient (CLI) | payer MEDICAID ==
[2019-10-06 11:10] LABS: HIV AG/AB 4TH GEN NON-REACTIVE (NON-REACTIVE)
[2019-10-06 14:15] LABS: HEPATITIS A IGM NON-REACTIVE (NON-REACTIVE); HEPATITIS B SURFACE ANTIGEN NON-REACTIVE (NON-REACTIVE); HEPATITIS C ANTIBODY NON-REACTIVE (NON-REACTIVE)
[2019-10-07 10:10] LABS: HSV 1 IGG TYPE SPECIFIC AB 18.6 index; HSV 2 IGG TYPE SPECIFIC AB 2.83 index
== END 2019-10-05 14:27 | disposition home or self-care (01) ==
LOC: LAB 14:26
PROVIDERS: ATTEND Obstetrics & Gynecology
DX: Z11.3 Encounter for screening for infections with a predominantly sexual mode of transmission (principal)
CPT/HCPCS: 36415; 80074; 81599; 86695; 86696; 87389

== ENCOUNTER 2019-11-23 08:00 | Outpatient (CLI) | payer MEDICAID ==
[2019-11-23 18:33] LABS: GLUCOSE, URINE (UA) NEGATIVE (NEGATIVE); KETONES,URINE (UA) TRACE mg/dL (NEGATIVE); LEUKOCYTE ESTERASE, URINE NEGATIVE (NEGATIVE); NITRITE,URINE NEGATIVE (NEGATIVE); OCCULT BLOOD,URINE TRACE-INTA (NEGATIVE); PH,URINE 5.5 PH (5.0-7.5); PROTEIN,URINE NEGATIVE (NEGATIVE); UROBILINOGEN,URINE 0.2 (NORMAL) E.U./dL (NORMAL)
[2019-11-23 19:06] LABS: BILIRUBIN,URINE NEGATIVE (NEGATIVE); CLARITY,URINE CLEAR (CLEAR); ICTOTEST,URINE NEGATIVE
== END 2019-11-23 23:59 | disposition home or self-care (01) ==
LOC: LAB.WC 08:00
PROVIDERS: ATTEND Nurse Practitioner Family
DX: R30.0 Dysuria (principal)
CPT/HCPCS: 81001; 81003; 87086

== ENCOUNTER 2020-01-11 19:59 | Emergency (ER) | payer MEDICAID ==
[2020-01-11 20:17] LABS: BILIRUBIN,URINE NEGATIVE (NEGATIVE); GLUCOSE, URINE (UA) NEGATIVE (NEGATIVE); KETONES,URINE (UA) NEGATIVE (NEGATIVE); LEUKOCYTE ESTERASE, URINE NEGATIVE (NEGATIVE); NITRITE,URINE NEGATIVE (NEGATIVE); OCCULT BLOOD,URINE TRACE-INTA (NEGATIVE); PH,URINE 6.5 PH (5.0-7.5); PROTEIN,URINE NEGATIVE (NEGATIVE); UROBILINOGEN,URINE 0.2 (NORMAL) E.U./dL (NORMAL)
[2020-01-11 20:20] LABS: CLARITY,URINE CLEAR (CLEAR)
[2020-01-11 20:21] LABS: HCG UR QUAL NEGATIVE
[2020-01-11] MEDS ORDERED: oxyCODONE 5 MG TABLET PO STA (20:22)
--- NOTE | 2020-01-11 20:24 | ED Physician Documentation ---
PD HPI ABD PAIN - Stated complaint Stated Complaint: ABD PX, NAUSEA - Chief complaint Chief Complaint: Abd Pain - History obtained from History obtained from: Patient - Additional information Additional information: 34-year-old woman with history of and exploratory laparoscopy for concern for endometriosis which was not present. No recent surgeries. She presents with a couple of weeks of worsening low abdominal pain associated with urinary frequency but minimal dysuria no foul smell or look to the urine. She has had chills but no measured fevers. Some nausea. She had a Nexplanon placed a few months ago. She is had that before so she does not think it was relevant. Of note, around the time this started she had her sister and someone else close to her within 9 days of each other and she is receptive to the thought that that may be relevant to her current pelvic/abdominal pain. Review of Systems Ten Systems: 10 systems reviewed and negative Constitutional: denies: Fever, Chills Cardiac: denies: Chest pain / pressure, Palpitations Respiratory: denies: Dyspnea, Cough GI: reports: Abdominal Pain, Nausea. denies: Vomiting, Constipation, Diarrhea : reports: Frequency. denies: Dysuria PD PAST MEDICAL HISTORY - Past Medical History Past Medical History: Yes Cardiovascular: None Respiratory: None Endocrine/Autoimmune: None Psych: Depression, Anxiety Musculoskeletal: Fibromyalgia, Chronic back pain - Past Surgical History Past Surgical History: Yes Ortho: Arthroscopic surgery /[employer]: section - Present Medications Home Medications: Ambulatory Orders Medication Instructions Recorded Confirmed Ondansetron Odt [Zofran] 4 mg TL Q6H PRN #10 tablet 09/16/18 metroNIDAZOLE [Flagyl] 500 mg PO BID #20 tablet 09/16/18 Hydrocodone/Acetaminophen [[place] 1 each PO Q6H PRN #15 tablet 09/17/18 5-325 Tablet] Cephalexin [Keflex] 500 mg PO Q6H #28 capsule 01/01/19 Hydrocodone/Acetaminophen 1 - 2 each PO Q6H PRN #14 tablet 01/01/19 [Hydrocodon-Acetaminophen 5-325] Amox/Clav 875/125 [Augmentin] 1 each PO Q12H #20 tablet 02/15/19 Hydrocodone/Acetaminophen 1 - 2 each PO Q6H PRN #14 tablet 02/15/19 [Hydrocodon-Acetaminophen 5-325] Albuterol Sulf [Ventolin Hfa 1 - 2 puffs INH Q4HR PRN #1 inhaler 05/05/19 Inhaler] Amoxicillin 875 mg PO BID #20 tablet 05/05/19 Amox/Clav 875/125 [Augmentin] 1 each PO Q12H #20 tablet 01/11/20 Oxycodone HCl/Acetaminophen 1 - 2 each PO Q6H PRN #14 tablet 01/11/20 [Percocet 5-325 mg Tablet] - Allergies Allergies/Adverse Reactions: Allergies Allergy/AdvReac Type Severity Reaction Status Date / Time codeine AdvReac Intermediate Rash Verified 12/31/18 23:41 - Social History Does the pt smoke?: Yes Smoking Status: Current every day smoker Does the pt drink ETOH?: Yes Does the pt have substance abuse?: Yes - Immunizations Immunizations are current?: Yes Immunizations: TDAP current <10years - POLST Patient has POLST: No PD ED PE NORMAL - Vitals Vital signs reviewed: Yes - General General: Alert and oriented X 3, No acute distress - HEENT HEENT: PERRL, EOMI - Neck Neck: Supple, no meningeal sign, No bony TTP - Cardiac Cardiac: RRR, No murmur - Respiratory Respiratory: No respiratory distress, Clear bilaterally - Abdomen Abdomen: Normal bowel sounds, Soft, Non tender - Back Back: No CVA TTP, No spinal TTP - Derm Derm: Normal color, Warm and dry - Extremities Extremities: No edema, No calf tenderness / cord - Neuro Neuro: Alert and oriented X 3, Normal speech - Psych Psych: Normal mood, Normal affect Results - Vitals Vitals: Vital Signs - 24 hr 01/11/20 01/11/20 20:02 20:06 Temperature 37.0 C 37.0 C Heart Rate 89 89 Respiratory 18 18 Rate Blood Pressure 147/94 H 147/94 H O2 Saturation 100 100 Oxygen O2 Source Room air - Labs Labs: Laboratory Tests 01/11/20 01/11/20 01/11/20 20:05 20:05 20:43 WBC 9.0 RBC 4.76 Hgb 14.2 Hct 41.9 MCV 88.0 MCH 29.8 MCHC 33.9 RDW 12.0 Plt Count 234 MPV 12.8 H Neut # (Auto) 4.8 Lymph # (Auto) 3.3 [place] # (Auto) 0.6 Eos # (Auto) 0.2 Baso # (Auto) 0.1 Absolute Nucleated RBC 0.00 Nucleated RBC % 0.0 Sodium Potassium Chloride Carbon Dioxide Anion Gap BUN Creatinine Estimated GFR (MDRD) Glucose Calcium Total Bilirubin AST ALT Alkaline Phosphatase Total Protein Albumin Globulin Albumin/Globulin Ratio Lipase Urine Color YELLOW Urine Clarity CLEAR Urine pH 6.5 Ur Specific [place] <=1.005 <=1.005 Urine Protein NEGATIVE Urine Glucose (UA) NEGATIVE Urine Ketones NEGATIVE Urine Occult Blood TRACE-INTA Urine Nitrite NEGATIVE Urine Bilirubin NEGATIVE Urine Urobilinogen 0.2 (NORMAL) Ur Leukocyte Esterase NEGATIVE Ur Microscopic Review NOT INDICATED Urine Culture Comments NOT INDICATED Urine HCG, Qual NEGATIVE 01/11/20 20:43 WBC RBC Hgb Hct MCV MCH MCHC RDW Plt Count MPV Neut # (Auto) Lymph # (Auto) [place] # (Auto) Eos # (Auto) Baso # (Auto) Absolute Nucleated RBC Nucleated RBC % Sodium 137 Potassium 3.7 Chloride 100 L Carbon Dioxide 27 Anion Gap 10.0 BUN 8 Creatinine 0.8 Estimated GFR (MDRD) 82 L Glucose 110 H Calcium 9.4 Total Bilirubin 0.6 AST 16 ALT 15 Alkaline Phosphatase 43 Total Protein 7.8 Albumin 5.0 Globulin 2.8 Albumin/Globulin Ratio 1.8 Lipase 31 Urine Color Urine Clarity Urine pH Ur Specific [place] Urine Protein Urine Glucose (UA) Urine Ketones Urine Occult Blood Urine Nitrite Urine Bilirubin Urine Urobilinogen Ur Leukocyte Esterase Ur Microscopic Review Urine Culture Comments Urine HCG, Qual - Rads (name of study) CT A/P Radiology: EMP read contemporaneously, See rad report PD MEDICAL DECISION MAKING - ED course ED course: 34-year-old woman with acute lower abdominal pain. Differential diagnosis includes appendicitis, PID, ovarian cyst, interstitial cystitis, UTI, or most likely after initial H&P functional pelvic pain related to stress reaction of 2 people dying. 34-year-old woman presents with subacute lower abdominal pain, benign exam. Work-up demonstrates mild diverticulitis. Departure - Departure Disposition: 01 Home, Self Care Clinical Impression: Diverticulitis of gastrointestinal tract Condition: Good Record reviewed to determine appropriate education?: Yes Instructions: ED Diverticulitis Prescriptions: Amox/Clav 875/125 [Augmentin] 1 each PO Q12H #20 tablet Oxycodone HCl/Acetaminophen [Percocet 5-325 mg Tablet] 1 - 2 each PO Q6H PRN #14 tablet PRN Reason: pain Comments: You were seen today for lower abdominal pain. Your work-up demonstrated a mild case of diverticulitis. Follow-up with your primary care physician, next available appointment. She may want to order colonoscopy to be done in 6 to 8 weeks. Return for new or worsening symptoms.
[2020-01-11 20:53] LABS: BASOPHILS # (AUTO) 0.1 10^3/uL (0.0-0.1); BASOPHILS % (AUTO) 0.7 %; EOSINOPHILS # (AUTO) 0.2 10^3/uL (0.0-0.7); EOSINOPHILS % (AUTO) 2.4 %; HGB - HEMOGLOBIN 14.2 g/dL (12.0-16.0); LYMPHOCYTES # (AUTO) 3.3 10^3/uL (1.5-3.5); LYMPHOCYTES % (AUTO) 36.4 %; MEAN CORPUSCULAR HEMOGLOBIN 29.8 pg (27.0-31.0); MEAN CORPUSCULAR HGB CONC 33.9 g/dL (32.0-36.0); MEAN PLATELET VOLUME 12.8 fL (7.9-10.8); MONOCYTES # (AUTO) 0.6 10^3/uL (0.0-1.0); MONOCYTES % (AUTO) 6.7 %; NEUTROPHILS # (AUTO) 4.8 10^3/uL (1.5-6.6); NEUTROPHILS % (AUTO) 53.5 %; PLT - PLATELET COUNT 234 10^3/uL (130-450); RED BLOOD COUNT 4.76 10^6/uL (4.20-5.40)
[2020-01-11 21:06] LABS: ALBUMIN/GLOBULIN RATIO 1.8 (1.0-2.2); BILIRUBIN,TOTAL 0.6 mg/dL (0.2-1.0); CALCIUM 9.4 mg/dL (8.5-10.3); CREATININE 0.8 mg/dL (0.4-1.0); TOTAL PROTEIN 7.8 g/dL (6.7-8.2)
[2020-01-11] MEDS ORDERED: IOVERSOL 320 100 ML VIAL IVP ONE ×2 (21:08→21:23)
--- NOTE | 2020-01-11 21:47 | CT Report ---
PROCEDURE: Abdomen/Pelvis W INDICATIONS: iv ONLY, LOW ABD CONTRAST: IV CONTRAST: Optiray 320 ml: 100 PO CONTRAST: *NO PO CONTRAST TECHNIQUE: After the administration of oral and intravenous contrast, 5 mm thick sections acquired from the diap hragms to the symphysis. 5 mm thick coronal and sagittal reformats were acquired. For radiation dos e reduction, the following was used: automated exposure control, adjustment of mA and/or kV accordin g to patient size. COMPARISON: None. FINDINGS: Image quality: Excellent. ABDOMEN: Lung bases: Lung bases are clear. Heart size is normal. Solid organs: Liver and spleen are normal in size and enhancement. Gallbladder is contracted but fr ee of inflammation. Biliary system is non dilated. Pancreas enhances normally. No adrenal nodules. Kidneys demonstrate normal size and enhancement, without hydronephrosis. Peritoneum and bowel: Bowel loops demonstrate normal wall thickness and caliber. No free fluid or a ir. Nodes and vessels: No retroperitoneal or mesenteric adenopathy by size criteria. Aorta and inferior vena cava are normal in size. Miscellaneous: No ventral hernias. PELVIS: Genitourinary: Bladder wall thickness is normal. Miscellaneous: No inguinal hernias or adenopathy. At the left lower quadrant there is moderate sigm oid diverticulosis and what appears to be mild acute diverticulitis given the presence of mild edema along the sigmoid colon proximally. There is no sign Bones: No suspicious bony lesions. No vertebral body compression fractures. IMPRESSION: Mild acute diverticulitis at the left lower quadrant involving the sigmoid colon, withou t peridiverticular abscess. Reviewed by: Tyrone Joshi MD on 01/11/2020 9:46 PM PDT Approved by: Tyrone Joshi MD on 01/11/2020 9:46 PM PDT Station ID: [id number]
[2020-01-11] MEDS ORDERED: AMOX/CLAV 875 MG/125 MG TABLET PO STA (21:59)
[2020-01-11 22:05] VITALS: BP 137/89
== END 2020-01-11 22:06 | disposition home or self-care (01) ==
LOC: ED 19:59
DX: K57.32 Diverticulitis of large intestine without perforation or abscess without bleeding (principal); F17.200 Nicotine dependence, unspecified, uncomplicated
CPT/HCPCS: 36415; 74177; 80053; 81003; 81025; 83690; 85025; 99284; 99285; A9270; Q9967; 81001; 87086

== ENCOUNTER 2020-04-26 17:10 | Outpatient (CLI) | payer MEDICAID | END 2020-04-26 17:11 | disposition home or self-care (01) | LOC: COV 17:10 | PROVIDERS: ATTEND Family Medicine | DX: R05 Cough (principal); Z20.828 Contact with and (suspected) exposure to other viral communicable diseases; M79.10 Myalgia, unspecified site; R68.83 Chills (without fever); R11.2 Nausea with vomiting, unspecified ==

== ENCOUNTER 2020-05-01 17:58 | Emergency (ER) | payer MEDICAID ==
[2020-05-01 18:05] VITALS: BP 148/91
[2020-05-01] MEDS ORDERED: KETOROLAC 60 MG/2 ML VIAL IM STA (18:16)
[2020-05-01] MEDS ORDERED: HYDROcod/ACET 5/325 Prepack 4 PO STA (18:16)
[2020-05-01] MEDS ORDERED: CYCLOBENZAPRINE 10 MG TABLET PO STA (18:16)
--- NOTE | 2020-05-01 18:18 | ED Physician Documentation ---
PD HPI BACK PAIN - Stated complaint Stated Complaint: BACK PX - Chief complaint Chief Complaint: Back Pain - History obtained from History obtained from: Patient - Additional information Additional information: 34-year-old woman has had some back problems in the past presents with 2 days of severe intermittent left low back pain. It started while standing up. Now has it mildly at rest but severe if she twists or bends over or goes from a seated to standing position. There is no saddle anesthesia, fevers, incontinence, urinary complaints. Review of Systems Constitutional: denies: Fever, Chills Cardiac: denies: Chest pain / pressure, Palpitations Respiratory: denies: Dyspnea, Cough GI: denies: Nausea, Vomiting PD PAST MEDICAL HISTORY - Past Medical History Cardiovascular: None Respiratory: None Endocrine/Autoimmune: None Psych: Depression, Anxiety Musculoskeletal: Fibromyalgia, Chronic back pain - Past Surgical History Past Surgical History: Yes Ortho: Arthroscopic surgery /[employer]: section - Present Medications Home Medications: Ambulatory Orders Medication Instructions Recorded Confirmed Ondansetron Odt [Zofran] 4 mg TL Q6H PRN #10 tablet 09/16/18 metroNIDAZOLE [Flagyl] 500 mg PO BID #20 tablet 09/16/18 Hydrocodone/Acetaminophen [[place] 1 each PO Q6H PRN #15 tablet 09/17/18 5-325 Tablet] Cephalexin [Keflex] 500 mg PO Q6H #28 capsule 01/01/19 Hydrocodone/Acetaminophen 1 - 2 each PO Q6H PRN #14 tablet 01/01/19 [Hydrocodon-Acetaminophen 5-325] Amox/Clav 875/125 [Augmentin] 1 each PO Q12H #20 tablet 02/15/19 Hydrocodone/Acetaminophen 1 - 2 each PO Q6H PRN #14 tablet 02/15/19 [Hydrocodon-Acetaminophen 5-325] Albuterol Sulf [Ventolin Hfa 1 - 2 puffs INH Q4HR PRN #1 inhaler 05/05/19 Inhaler] Amoxicillin 875 mg PO BID #20 tablet 05/05/19 Amox/Clav 875/125 [Augmentin] 1 each PO Q12H #20 tablet 01/11/20 Oxycodone HCl/Acetaminophen 1 - 2 each PO Q6H PRN #14 tablet 01/11/20 [Percocet 5-325 mg Tablet] Cyclobenzaprine [Flexeril] 10 mg PO TID PRN #20 tablet 05/01/20 Hydrocodone/Acetaminophen 1 - 2 tab PO Q6H PRN #15 tablet 05/01/20 [Hydrocodone-Acetamin 5-325 mg] Lidocaine Patch 5% [Lidoderm Patch] 1 patch TOP DAILY PRN #10 patch 05/01/20 Meloxicam [Mobic] 7.5 mg PO BID PRN #20 tablet 05/01/20 - Allergies Allergies/Adverse Reactions: Allergies Allergy/AdvReac Type Severity Reaction Status Date / Time codeine AdvReac Intermediate Rash Verified 05/01/20 18:01 - Social History Does the pt smoke?: Yes Smoking Status: Current every day smoker Does the pt drink ETOH?: Yes Does the pt have substance abuse?: Yes - Immunizations Immunizations are current?: Yes Immunizations: TDAP current <10years - POLST Patient has POLST: No PD ED PE NORMAL - Vitals Vital signs reviewed: Yes - General General: Alert and oriented X 3, No acute distress - Back Back: Other (Muscular tenderness in the left low back, no midline tenderness) - Extremities Extremities: Other (The patient has equal and normal Achilles and patellar reflexes bilaterally. Normal sensation in all areas of the legs. Patient denies saddle anesthesia. Normal strength in flexion-extension at the ankles, knees, and flexion of the hips.) - Neuro Neuro: Alert and oriented X 3, Normal speech Results - Vitals Vitals: Vital Signs - 24 hr 05/01/20 18:01 Temperature 36.5 C Heart Rate 88 Respiratory 16 Rate Blood Pressure 148/91 H O2 Saturation 98 Oxygen O2 Source Room air PD MEDICAL DECISION MAKING - ED course ED course: This patient has seemingly uncomplicated musculoskeletal back pain. The patient has no "red flags." Specifically denies IV drug use, fevers, incontinence, saddle anesthesia. Spinal epidural abscess was considered, given that the patient has no fever, is not diabetic, has no spinal tenderness, does not use IV drugs, and has no bilateral neurologic symptoms, the diagnosis of spinal epidural abscess is considered exceedingly unlikely. The [place] prescription monitoring program was queried with regard to this patient. No concerning findings were found. Departure - Departure Disposition: 01 Home, Self Care Clinical Impression: Back spasm Condition: Good Record reviewed to determine appropriate education?: Yes Instructions: ED Low Back Pain Injury Prescriptions: Cyclobenzaprine [Flexeril] 10 mg PO TID PRN #20 tablet PRN Reason: Spasms Hydrocodone/Acetaminophen [Hydrocodone-Acetamin 5-325 mg] 1 - 2 tab PO Q6H PRN #15 tablet PRN Reason: Pain Lidocaine Patch 5% [Lidoderm Patch] 1 patch TOP DAILY PRN #10 patch PRN Reason: pain Meloxicam [Mobic] 7.5 mg PO BID PRN #20 tablet PRN Reason: Pain Comments: Call your doctor to arrange a follow-up appointment, make the next available appointment. In the interim, return anytime if worse or if new symptoms develop. Do not drink or drive while taking narcotic pain medication. Note that many narcotic pain relievers also contain Tylenol/acetaminophen. Please ensure that your total dose of acetaminophen from all sources does not exceed 3 g (3000 mg) per day. You may get constipated while on this medication. Take a stool softener such as Colace twice a day while you are on it. Also add an [id number] laxative such as senna or MiraLAX on any day that you do not have a bowel movement. If you received a narcotic pain medication or sedative while in the emergency department, do not drive for the next 24 hours. Forms: Activity restrictions
[2020-05-01] MEDS ORDERED: LIDOCAINE PATCH 5% TOP STA (18:19)
== END 2020-05-01 18:42 | disposition home or self-care (01) ==
LOC: ED 17:58
DX: M62.830 Muscle spasm of back (principal); F17.200 Nicotine dependence, unspecified, uncomplicated
CPT/HCPCS: 96372; 99283; A9270

== ENCOUNTER 2020-09-09 17:01 | Outpatient (CLI) | payer MEDICAID | END 2020-09-09 17:02 | disposition home or self-care (01) | LOC: COV 17:01 | PROVIDERS: ATTEND Family Medicine | DX: R05 Cough (principal); R06.02 Shortness of breath; M79.10 Myalgia, unspecified site; R53.83 Other fatigue; R68.83 Chills (without fever); Z20.822 Contact with and (suspected) exposure to COVID-19 ==

== ENCOUNTER 2020-11-06 22:22 | Emergency (ER) | payer MEDICAID ==
--- OUTSIDE RECORDS SUMMARY | 2020-11-06 22:43 | EXTERNAL MEDICAL SUMMARY RPT | Continuity of Care Document ---
:1985 Demographics Phone Unavailable Preferred Language Unknown Marital Status Unknown Hindu Affiliation Unknown Race Unknown Ethnic Group Unknown Author Organization [facility] Address [address] [id number] Phone Social History date description facility [id number]
[2020-11-06 23:54] LABS: BASOPHILS # (AUTO) 0.1 10^3/uL (0.0-0.1); BASOPHILS % (AUTO) 0.6 %; EOSINOPHILS # (AUTO) 0.4 10^3/uL (0.0-0.7); EOSINOPHILS % (AUTO) 4.5 %; HCT - HEMATOCRIT 35.7 % (37.0-47.0); HGB - HEMOGLOBIN 12.1 g/dL (12.0-16.0); LYMPHOCYTES # (AUTO) 4.5 10^3/uL (1.5-3.5); LYMPHOCYTES % (AUTO) 47.9 %; MEAN CORPUSCULAR HEMOGLOBIN 30.2 pg (27.0-31.0); MEAN CORPUSCULAR HGB CONC 33.9 g/dL (32.0-36.0); MONOCYTES # (AUTO) 0.7 10^3/uL (0.0-1.0); MONOCYTES % (AUTO) 7.2 %; NEUTROPHILS # (AUTO) 3.7 10^3/uL (1.5-6.6); NEUTROPHILS % (AUTO) 39.6 %; PLT - PLATELET COUNT 201 10^3/uL (130-450); RED BLOOD COUNT 4.01 10^6/uL (4.20-5.40); RED CELL DISTRIBUTION WIDTH 12.4 % (12.0-15.0); WHITE BLOOD COUNT 9.3 x10^3/uL (4.8-10.8)
[2020-11-07 00:10] LABS: ALBUMIN 3.9 g/dL (3.2-5.5); ALBUMIN/GLOBULIN RATIO 1.4 (1.0-2.2); BILIRUBIN,TOTAL 0.4 mg/dL (0.2-1.0); CALCIUM 8.8 mg/dL (8.5-10.3); CREATININE 0.7 mg/dL (0.4-1.0); POTASSIUM 3.9 mmol/L (3.5-5.0); TOTAL PROTEIN 6.6 g/dL (6.7-8.2)
[2020-11-07 02:19] VITALS: BP 135/81
--- NOTE | 2020-11-07 08:23 | XRAY Report ---
PROCEDURE: Chest 2 View X-Ray INDICATIONS: chest pain TECHNIQUE: 2 view(s) of the chest. COMPARISON: None. FINDINGS: Surgical changes and devices: None. Lungs and pleura: No pleural effusions or pneumothorax. Lungs are clear. Mediastinum: Mediastinal contours are normal. Heart size is normal. Bones and chest wall: No suspicious bony abnormalities. Soft tissues appear unremarkable. IMPRESSION: Normal for age, source of current symptoms is not seen. Reviewed by: Tyrone Joshi MD on 11/07/2020 8:22 AM PDT Approved by: Tyrone Joshi MD on 11/07/2020 8:22 AM PDT Station ID: [id number]
--- NOTE | 2020-11-07 09:10 | ED Physician Documentation ---
PD HPI CHEST PAIN - Stated complaint Stated Complaint: CP - Chief complaint Chief Complaint: Cardiac - History obtained from History obtained from: Patient - History of Present Illness Timing - onset: Last night Timing - duration: Minutes (episodes last minutes) Timing - details: Intermittant Pain level now: 0 Quality: Aching Location: Substernal Radiation: Other (no radiation) Improved by: Nothing Worsened by: Inspiration Associated symptoms: Shortness of air (mild), Nausea (mild), Palpitations. No: Diaphoresis, Vomiting, Cough Similar symptoms before: Has not had sx before Recently seen: Not recently seen - Additional information Additional information: c/o midline chest pain, aching, episodic since last night. episodes last seconds, sometimes minutes. no apparent inciting factors. she describes a small pleuritic component, and occasionally feels mild dyspnea and nausea. she also has had skipped-beat palpitations episodically for months but more frequent since last night. Review of Systems Constitutional: reports: Reviewed and negative Cardiac: reports: Chest pain / pressure, Palpitations Respiratory: reports: Dyspnea (mild). denies: Cough GI: reports: Nausea. denies: Abdominal Pain, Vomiting : denies: Now EGA Musculoskeletal: denies: Extremity swelling PD PAST MEDICAL HISTORY - Past Medical History Past Medical History: Yes Cardiovascular: None Respiratory: None Endocrine/Autoimmune: None Psych: Depression, Anxiety Musculoskeletal: Fibromyalgia, Chronic back pain - Past Surgical History Past Surgical History: Yes Ortho: Arthroscopic surgery /[employer]GER [employer]: section - Present Medications Home Medications: Ambulatory Orders Medication Instructions Recorded Confirmed Ondansetron Odt [Zofran] 4 mg TL Q6H PRN #10 tablet 09/16/18 11/07/20 Hydrocodone/Acetaminophen [[place] 1 each PO Q6H PRN #15 tablet 09/17/18 11/07/20 5-325 Tablet] Hydrocodone/Acetaminophen 1 - 2 each PO Q6H PRN #14 tablet 01/01/19 11/07/20 [Hydrocodon-Acetaminophen 5-325] Albuterol Sulf [Ventolin Hfa 1 - 2 puffs INH Q4HR PRN #1 inhaler 05/05/19 11/07/20 Inhaler] Oxycodone HCl/Acetaminophen 1 - 2 each PO Q6H PRN #14 tablet 01/11/20 11/07/20 [Percocet 5-325 mg Tablet] Cyclobenzaprine [Flexeril] 10 mg PO TID PRN #20 tablet 05/01/20 11/07/20 Meloxicam [Mobic] 7.5 mg PO BID PRN #20 tablet 05/01/20 11/07/20 - Allergies Allergies/Adverse Reactions: Allergies Allergy/AdvReac Type Severity Reaction Status Date / Time codeine AdvReac Intermediate Rash Verified 11/06/20 22:31 - Social History Does the pt smoke?: Yes Smoking Status: Current every day smoker Does the pt drink ETOH?: Yes Does the pt have substance abuse?: Yes - Immunizations Immunizations are current?: Yes Immunizations: TDAP current <10years - POLST Patient has POLST: No PD ED PE NORMAL - Vitals Vital signs reviewed: Yes - General General: Alert and oriented X 3, No acute distress, Well developed/nourished - Cardiac Cardiac: RRR, No murmur, No gallop, No rub - Respiratory Respiratory: No respiratory distress, Clear bilaterally - Abdomen Abdomen: Soft, Non tender - Extremities Extremities: No edema Results - Vitals Vitals: Vital Signs - 24 hr 11/06/20 11/07/20 22:25 02:18 Temperature 36.4 C L 36.5 C Heart Rate 121 H 72 Respiratory 18 16 Rate Blood Pressure 160/100 H 135/81 H O2 Saturation 100 100 Oxygen O2 Source Room air - EKG (time done) No standard instances Rate: Rate (enter#) (81) Rhythm: NSR [place]: Normal Intervals: Normal [place] QRS: Normal Ischemia: Normal ST segments, Non specific changes (inferior leads) Compare to prior EKG: Unchanged from prior EKG (03/09/20) - Labs Labs: Laboratory Tests 11/06/20 11/06/20 11/06/20 23:49 23:49 23:49 WBC 9.3 RBC 4.01 L Hgb 12.1 Hct 35.7 L MCV 89.0 MCH 30.2 MCHC 33.9 RDW 12.4 Plt Count 201 MPV 12.0 H Neut # (Auto) 3.7 Lymph # (Auto) 4.5 H [place] # (Auto) 0.7 Eos # (Auto) 0.4 Baso # (Auto) 0.1 Absolute Nucleated RBC 0.00 Nucleated RBC % 0.0 D-Dimer < 200.0 L Sodium 139 Potassium 3.9 Chloride 106 Carbon Dioxide 25 Anion Gap 8.0 BUN 12 Creatinine 0.7 Estimated GFR (MDRD) 95 Glucose 105 H Calcium 8.8 Total Bilirubin 0.4 AST 17 ALT 18 Alkaline Phosphatase 36 L Troponin I High Sens Total Protein 6.6 L Albumin 3.9 Globulin 2.7 Albumin/Globulin Ratio 1.4 Lipase 27 11/06/20 23:49 WBC RBC Hgb Hct MCV MCH MCHC RDW Plt Count MPV Neut # (Auto) Lymph # (Auto) [place] # (Auto) Eos # (Auto) Baso # (Auto) Absolute Nucleated RBC Nucleated RBC % D-Dimer Sodium Potassium Chloride Carbon Dioxide Anion Gap BUN Creatinine Estimated GFR (MDRD) Glucose Calcium Total Bilirubin AST ALT Alkaline Phosphatase Troponin I High Sens < 2.3 L Total Protein Albumin Globulin Albumin/Globulin Ratio Lipase - Rads (name of study) chest xray Radiology: Prelim report reviewed, See rad report PD MEDICAL DECISION MAKING - ED course Complexity details: reviewed results, re-evaluated patient, considered differential, d/w patient ED course: unremarkable w/u including troponin, d-dimer, cxr, and EKG. results discussed and patient is reassured, comfortable with d/c home. Departure - Departure Disposition: 01 Home, Self Care Clinical Impression: Palpitations Chest pain Qualifiers: Chest pain type: unspecified Qualified Code(s): R07.9 - Chest pain, unspecified Condition: Good Instructions: ED Chest Pain Atypical Unkn Cause Discharge Date/Time: 11/07/20 02:46
== END 2020-11-07 02:46 | disposition home or self-care (01) ==
LOC: ED 22:22
DX: R00.2 Palpitations (principal); R07.89 Other chest pain; R06.02 Shortness of breath; R11.0 Nausea; F17.200 Nicotine dependence, unspecified, uncomplicated
CPT/HCPCS: 36415; 80053; 83690; 84484; 85025; 85379; 93005; 99284

== ENCOUNTER 2021-01-19 14:27 | Outpatient (CLI) | payer MEDICAID ==
[2021-01-19 17:59] LABS: BASOPHILS % (AUTO) 0.5 %; EOSINOPHILS # (AUTO) 0.2 10^3/uL (0.0-0.7); HCT - HEMATOCRIT 40.2 % (37.0-47.0); HGB - HEMOGLOBIN 13.4 g/dL (12.0-16.0); LYMPHOCYTES # (AUTO) 3.5 10^3/uL (1.5-3.5); LYMPHOCYTES % (AUTO) 46.4 %; MEAN CORPUSCULAR HEMOGLOBIN 29.6 pg (27.0-31.0); MEAN CORPUSCULAR HGB CONC 33.3 g/dL (32.0-36.0); MEAN CORPUSCULAR VOLUME 88.7 fL (81.0-99.0); MEAN PLATELET VOLUME 12.3 fL (7.9-10.8); MONOCYTES # (AUTO) 0.3 10^3/uL (0.0-1.0); MONOCYTES % (AUTO) 4.5 %; NEUTROPHILS # (AUTO) 3.5 10^3/uL (1.5-6.6); NEUTROPHILS % (AUTO) 45.5 %; PLT - PLATELET COUNT 231 10^3/uL (130-450); RED BLOOD COUNT 4.53 10^6/uL (4.20-5.40); RED CELL DISTRIBUTION WIDTH 12.1 % (12.0-15.0); WHITE BLOOD COUNT 7.6 x10^3/uL (4.8-10.8)
== END 2021-01-19 14:28 | disposition home or self-care (01) ==
LOC: LAB.N 14:27
PROVIDERS: ATTEND Nurse Practitioner
DX: R06.02 Shortness of breath (principal)
CPT/HCPCS: 36415; 85025

== ENCOUNTER 2021-01-19 14:31 | Outpatient (CLI) | payer MEDICAID ==
--- NOTE | 2021-01-19 15:04 | XRAY Report ---
PROCEDURE: Chest 2 View X-Ray INDICATIONS: SHORTNESS OF BREATH TECHNIQUE: 2 view(s) of the chest. COMPARISON: None. FINDINGS: Surgical changes and devices: None. Lungs and pleura: No pleural effusions or pneumothorax. Lungs are clear. Mediastinum: Mediastinal contours are normal. Heart size is normal. Bones and chest wall: No suspicious bony abnormalities. Soft tissues appear unremarkable. IMPRESSION: No acute cardiopulmonary disease process. Reviewed by: Silvia Hairston MD, PhD on 01/19/2021 3:02 PM PDT Approved by: Silvia Hairston MD, PhD on 01/19/2021 3:02 PM PDT Station ID: [id number]
== END 2021-01-19 14:32 | disposition home or self-care (01) ==
LOC: DI.N 14:31
PROVIDERS: ATTEND Family Medicine
DX: R06.02 Shortness of breath (principal)
CPT/HCPCS: 36415; 85025

== ENCOUNTER 2021-01-31 10:30 | Outpatient (CLI) | payer MEDICAID | END 2021-01-31 23:59 | disposition home or self-care (01) | LOC: LAB.R 10:30 | PROVIDERS: ATTEND Nurse Practitioner | DX: R06.02 Shortness of breath (principal); Z20.822 Contact with and (suspected) exposure to COVID-19 ==

== ENCOUNTER 2021-07-15 17:23 | Emergency (ER) | payer MEDICAID ==
[2021-07-15] MEDS ORDERED: oxyCODONE 5 MG TABLET PO STA (18:41)
[2021-07-15] MEDS ORDERED: PENICILLIN VK 250 MG TABLET PO STA (18:41)
--- NOTE | 2021-07-15 18:49 | ED Physician Documentation ---
History of Present Illness - Stated complaint Stated Complaint: R ORAL PX - Chief complaint Chief Complaint: Heent - History obtained from History obtained from: Patient - History of Present Illness Timing: Today Pain level max: 8 Pain level now: 8 - Additonal information Additional information: 35-year-old female presents to the emergency department with right upper dental pain. Ongoing for the past several days, but worsened today. Has not seen her dentist yet. Worse with eating and drinking. Nothing makes it better. Taking Tylenol without relief. No fevers. No facial swelling. No difficulty speaking or swallowing. Denies any possibility of . Not breast-feeding. 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 - Present Medications Home Medications: Ambulatory Orders Medication Instructions Recorded Confirmed Ondansetron Odt [Zofran] 4 mg TL Q6H PRN #10 tablet 09/16/18 11/07/20 Hydrocodone/Acetaminophen [[place] 1 each PO Q6H PRN #15 tablet 09/17/18 11/07/20 5-325 Tablet] Hydrocodone/Acetaminophen 1 - 2 each PO Q6H PRN #14 tablet 01/01/19 11/07/20 [Hydrocodon-Acetaminophen 5-325] Albuterol Sulf [Ventolin Hfa 1 - 2 puffs INH Q4HR PRN #1 inhaler 05/05/19 11/07/20 Inhaler] Oxycodone HCl/Acetaminophen 1 - 2 each PO Q6H PRN #14 tablet 01/11/20 11/07/20 [Percocet 5-325 mg Tablet] Cyclobenzaprine [Flexeril] 10 mg PO TID PRN #20 tablet 05/01/20 11/07/20 Meloxicam [Mobic] 7.5 mg PO BID PRN #20 tablet 05/01/20 11/07/20 Oxycodone HCl/Acetaminophen 1 - 2 each PO Q6H PRN #14 tablet 07/15/21 [Percocet 5-325 mg Tablet] Penicillin V Potassium 500 mg PO Q6HR #40 tablet 07/15/21 - Allergies Allergies/Adverse Reactions: Allergies Allergy/AdvReac Type Severity Reaction Status Date / Time codeine AdvReac Intermediate Rash Verified 07/15/21 17:42 - Social History Does the pt smoke?: Yes Smoking Status: Current every day smoker Does the pt drink ETOH?: Yes Does the pt have substance abuse?: Yes - Immunizations Immunizations are current?: Yes Immunizations: TDAP current <10years - POLST Patient has POLST: No PD ED PE NORMAL - Vitals Vital signs reviewed: Yes - General General: Alert and oriented X 3, No acute distress - HEENT HEENT: Moist mucous membranes, Other (Poor dentition, right upper premolar has mild erythema and swelling on the lingual aspect gum by the tooth. No drainable abscess. No facial swelling. Normal phonation. No trismus.) - Neck Neck: Supple, no meningeal sign - Derm Derm: Warm and dry - Neuro Neuro: Alert and oriented X 3 Results - Vitals Vitals: Vital Signs - 24 hr 07/15/21 07/15/21 17:39 19:03 Temperature 37.1 C 36.6 C Heart Rate 86 70 Respiratory 17 16 Rate Blood Pressure 142/89 H 141/93 H O2 Saturation 98 100 Oxygen O2 Source Room air PD MEDICAL DECISION MAKING - ED course Complexity details: considered differential, d/w patient ED course: 35-year-old female with dental caries and dental pain. Will place on antibiotics for home and prescribe a short course of pain medication. I am prescribing a short course of short-acting opioid pain medication for this patient. 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 I have discussed that the opioids are for short term therapy only, and will not be refilled from the ED. Patient counseled regarding signs and symp toms for which I believe and urgent re-evaluation would be necessary. Patient with good understanding of and agreement to plan and is comfortable going home at this time This document was made in part using voice recognition software. While efforts are made to proofread this document, sound alike and grammatical errors may occur. Departure - Departure Disposition: 01 Home, Self Care Clinical Impression: Pain due to dental caries Condition: Good Instructions: ED Tooth Pain Follow-Up: your,dentist this week [Other] Prescriptions: Penicillin V Potassium 500 mg PO Q6HR #40 tablet Oxycodone HCl/Acetaminophen [Percocet 5-325 mg Tablet] 1 - 2 each PO Q6H PRN #14 tablet PRN Reason: pain Comments: Take all antibiotics until gone. These follow-up with your dentist for further care. Return if you worsen. Your symptoms should begin to improve within 24 hours. Your prescriptions were sent to [facility] in [place]. I am prescribing a short course of narcotic pain medication for you. These are potentially dangerous and addictive medications that should be used carefully. These medications may constipate you. Take an cjhv-lyo-rflfjoe stool softener (docusate) twice daily with plenty of water while taking these medications. If you go 24 hours without a bowel movement, take lymj-mni-ccveakd miralax, per package instructions. Do not drink or drive while taking these medications. If you received narcotic or sedating medications while in the emergency department, do not drive for 24 hours. Store this medication in a safe, secure place and out of reach of children. It is a violation of federal law to give or sell this medication to another person or to use in a manner other than prescribed. The ED will not refill narcotic prescriptions, including prescriptions lost or stolen. To dispose of unwanted medications: 1. [facility] [address] in [place] has a medication drop box. They accept prescription medications (in pill form) Saturday through Saturday 9:00 a.m. to 5:00 p.m. 2. The [facility] Police Department accepts prescription medications (in pill form only) for disposal year round. Call for more information. 3. Contact the [facility] for the next [facility] sponsored prescription drug collection event. , [phone], or [phone]; Discharge Date/Time: 07/15/21 19:04
[2021-07-15 19:04] VITALS: BP 141/93
== END 2021-07-15 19:04 | disposition home or self-care (01) ==
LOC: ED 17:23
DX: K02.9 Dental caries, unspecified (principal); K08.89 Other specified disorders of teeth and supporting structures; F17.200 Nicotine dependence, unspecified, uncomplicated
CPT/HCPCS: 99282; A9270

== ENCOUNTER 2021-07-23 16:40 | Emergency (ER) | payer MEDICAID ==
[2021-07-23 17:11] VITALS: BP 164/76
--- NOTE | 2021-07-23 17:25 | ED Physician Documentation ---
PD HPI HEENT - Stated complaint Stated Complaint: COUGH/SORE THROAT/HEADACHE/QUINN - Chief complaint Chief Complaint: Heent - History obtained from History obtained from: Patient - Additional information Additional information: Patient comes emergency department chief complaint of sore throat, cough, and nasal congestion for the last few days. She has not had any known sick contacts. She denies any GI symptoms. She is immunized. No other complaints at this time. She does note that she is already on penicillin and has been for nearly a week, for a dental infection. Review of Systems Ten Systems: 10 systems reviewed and negative Constitutional: reports: Reviewed and negative Eyes: reports: Reviewed and negative Ears: reports: Reviewed and negative Nose: reports: Rhinorrhea / runny nose, Congestion Throat: reports: Sore throat, Reviewed and negative Cardiac: reports: Reviewed and negative Respiratory: reports: Cough GI: reports: Reviewed and negative : reports: Reviewed and negative Skin: reports: Reviewed and negative Musculoskeletal: reports: Reviewed and negative Neurologic: reports: Reviewed and negative Psychiatric: reports: Reviewed and negative Endocrine: reports: Reviewed and negative Immunocompromised: reports: Reviewed and negative PD PAST MEDICAL HISTORY - Past Medical History Cardiovascular: None Respiratory: None Endocrine/Autoimmune: None Psych: Depression, Anxiety Musculoskeletal: Fibromyalgia, Chronic back pain - Past Surgical History Past Surgical History: Yes 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 - Present Medications Home Medications: Ambulatory Orders Medication Instructions Recorded Confirmed Ondansetron Odt [Zofran] 4 mg TL Q6H PRN #10 tablet 09/16/18 11/07/20 Hydrocodone/Acetaminophen [[place] 1 each PO Q6H PRN #15 tablet 09/17/18 11/07/20 5-325 Tablet] Hydrocodone/Acetaminophen 1 - 2 each PO Q6H PRN #14 tablet 01/01/19 11/07/20 [Hydrocodon-Acetaminophen 5-325] Albuterol Sulf [Ventolin Hfa 1 - 2 puffs INH Q4HR PRN #1 inhaler 05/05/19 11/07/20 Inhaler] Oxycodone HCl/Acetaminophen 1 - 2 each PO Q6H PRN #14 tablet 01/11/20 11/07/20 [Percocet 5-325 mg Tablet] Cyclobenzaprine [Flexeril] 10 mg PO TID PRN #20 tablet 05/01/20 11/07/20 Meloxicam [Mobic] 7.5 mg PO BID PRN #20 tablet 05/01/20 11/07/20 Oxycodone HCl/Acetaminophen 1 - 2 each PO Q6H PRN #14 tablet 07/15/21 [Percocet 5-325 mg Tablet] Penicillin V Potassium 500 mg PO Q6HR #40 tablet 07/15/21 Fluconazole [Diflucan] 100 mg PO DAILY #1 tablet 07/23/21 - Allergies Allergies/Adverse Reactions: Allergies Allergy/AdvReac Type Severity Reaction Status Date / Time codeine AdvReac Intermediate Rash Verified 07/23/21 17:12 - Social History Does the pt smoke?: Yes Smoking Status: Current every day smoker Does the pt drink ETOH?: Yes Does the pt have substance abuse?: Yes - Immunizations Immunizations are current?: Yes Immunizations: TDAP current <10years - POLST Patient has POLST: No PD ED PE NORMAL - Vitals Vital signs reviewed: Yes - General General: Alert and oriented X 3, No acute distress, Well developed/nourished - HEENT HEENT: Atraumatic, PERRL, EOMI, Moist mucous membranes, Other (Mild erythema pharynx otherwise unremarkable) - Neck Neck: Supple, no meningeal sign, No adenopathy - Cardiac Cardiac: RRR, No murmur, Strong equal pulses - Respiratory Respiratory: No respiratory distress, Clear bilaterally - Abdomen Abdomen: Soft, Non tender, Non distended - Derm Derm: Normal color, Warm and dry, No rash - Extremities Extremities: No deformity, No edema, No calf tenderness / cord - Neuro Neuro: Alert and oriented X 3 - Psych Psych: Normal mood, Normal affect Results - Vitals Vitals: Oxygen O2 Source Room air - Labs Labs: Microbiology 07/23/21 17:15 Group A Strep Throat Culture - Preliminary Throat CULTURE IN PROGRESS. RESULTS TO FOLLOW. Laboratory Tests 07/23/21 17:15 Group A Strep Rapid Negative PD MEDICAL DECISION MAKING - ED course Complexity details: considered differential, d/w patient ED course: I did swab the patient's throat for strep. I discussed with her that the likelihood of strep is low, secondary to the fact that she is already on penicillin for something else. Nonetheless it is not outside of the realm of possibility, so I have checked this. The patient is instructed to follow-up on her results and would be portal. If she is positive for strep, then we will need to add another antibiotic besides the penicillin. Otherwise, expect this is a viral Illness, which will go away on its own. Departure - Departure Disposition: 01 Home, Self Care Clinical Impression: Viral syndrome Condition: Stable Instructions: ED Viral Syndrome Prescriptions: Fluconazole [Diflucan] 100 mg PO DAILY #1 tablet Comments: A strep test has been sent and is pending at this time. You may access your account through [email or web address] to watch for the results. At this time, given that you are already on penicillin, it is unlikely that your symptoms are due to strep throat, and are more likely to be due to a viral illness. However, if your strep test does come back positive, we will most likely add another antibiotic to help treat this. You been prescribed Diflucan and this has been electronically transmitted to [facility] in [place]. Discharge Date/Time: 07/23/21 17:35
[2021-07-23 17:51] LABS: RAPID STREP SCREEN Negative (Negative)
== END 2021-07-23 17:35 | disposition home or self-care (01) ==
LOC: ED 16:40
DX: B34.9 Viral infection, unspecified (principal); J02.9 Acute pharyngitis, unspecified; F17.200 Nicotine dependence, unspecified, uncomplicated
CPT/HCPCS: 87070; 87430; 99283

== ENCOUNTER 2021-10-16 13:43 | Outpatient (CLI) | payer MEDICAID ==
[2021-10-16 18:26] LABS: BASOPHILS % (AUTO) 0.6 %; EOSINOPHILS # (AUTO) 0.3 10^3/uL (0.0-0.7); EOSINOPHILS % (AUTO) 5.1 %; HCT - HEMATOCRIT 40.1 % (37.0-47.0); HGB - HEMOGLOBIN 13.8 g/dL (12.0-16.0); LYMPHOCYTES # (AUTO) 3.3 10^3/uL (1.5-3.5); LYMPHOCYTES % (AUTO) 49.4 %; MEAN CORPUSCULAR HEMOGLOBIN 29.6 pg (27.0-31.0); MEAN CORPUSCULAR HGB CONC 34.4 g/dL (32.0-36.0); MEAN CORPUSCULAR VOLUME 86.1 fL (81.0-99.0); MEAN PLATELET VOLUME 12.6 fL (7.9-10.8); MONOCYTES # (AUTO) 0.4 10^3/uL (0.0-1.0); MONOCYTES % (AUTO) 5.5 %; NEUTROPHILS # (AUTO) 2.6 10^3/uL (1.5-6.6); NEUTROPHILS % (AUTO) 39.3 %; PLT - PLATELET COUNT 249 10^3/uL (130-450); RED BLOOD COUNT 4.66 10^6/uL (4.20-5.40); RED CELL DISTRIBUTION WIDTH 12.3 % (12.0-15.0); WHITE BLOOD COUNT 6.7 x10^3/uL (4.8-10.8)
[2021-10-16 18:27] LABS: BILIRUBIN,URINE NEGATIVE (NEGATIVE); GLUCOSE, URINE (UA) NEGATIVE (NEGATIVE); KETONES,URINE (UA) NEGATIVE (NEGATIVE); LEUKOCYTE ESTERASE, URINE NEGATIVE (NEGATIVE); NITRITE,URINE NEGATIVE (NEGATIVE); OCCULT BLOOD,URINE TRACE-INTA (NEGATIVE); PH,URINE 5.5 PH (5.0-7.5); PROTEIN,URINE NEGATIVE (NEGATIVE); UROBILINOGEN,URINE 0.2 (NORMAL) E.U./dL (NORMAL)
[2021-10-16 18:28] LABS: CLARITY,URINE CLEAR (CLEAR)
[2021-10-16 18:55] LABS: ALBUMIN 4.1 g/dL (3.2-5.5); ALBUMIN/GLOBULIN RATIO 1.3 (1.0-2.2); BILIRUBIN,TOTAL 0.5 mg/dL (0.2-1.0); CREATININE 0.8 mg/dL (0.4-1.0); POTASSIUM 4.3 mmol/L (3.5-5.0); TOTAL PROTEIN 7.2 g/dL (6.7-8.2)
[2021-10-17 12:59] LABS: ESTIMATED AVERAGE GLUCOSE 123 mg/dL (70-100); HEMOGLOBIN A1c% 5.9 % (4.27-6.07)
== END 2021-10-16 13:44 | disposition home or self-care (01) ==
LOC: LAB.N 13:43
PROVIDERS: ATTEND Nurse Practitioner
DX: R10.31 Right lower quadrant pain (principal); R10.2 Pelvic and perineal pain; R63.1 Polydipsia
CPT/HCPCS: 36415; 80053; 81001; 81003; 82150; 83036; 83690; 85025; 87086

== ENCOUNTER 2021-12-18 17:09 | Emergency (ER) | payer MEDICAID ==
[2021-12-18] MEDS ORDERED: HYDROmorphone 1 MG/ML CARPUJECT IVP STA ×2 (17:31→18:50)
--- NOTE | 2021-12-18 17:32 | ED Physician Documentation ---
PD HPI ABD PAIN - Stated complaint Stated Complaint: ABD PX,CHEST PX,NAUSEA - Chief complaint Chief Complaint: Abd Pain - History obtained from History obtained from: Patient - Additional information Additional information: 36-year-old woman with history of diverticulitis presents with 3 days of left- sided and diffuse abdominal pain associated with urinary frequency consistent with prior episodes of diverticulitis. She has had decreased bowel movements for at least the last 3 days. No possibility of . She has had a C- section, no other abdominal surgeries. Pain was gradual in onset and proceeded by vague fatigue and sweats. Review of Systems Constitutional: reports: Chills, Sweats. denies: Fever Cardiac: reports: Palpitations Respiratory: denies: Dyspnea, Cough GI: reports: Abdominal Pain, Constipation. 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 - Present Medications Home Medications: Ambulatory Orders Medication Instructions Recorded Confirmed Ondansetron Odt [Zofran] 4 mg TL Q6H PRN #10 tablet 09/16/18 11/07/20 Hydrocodone/Acetaminophen [[place] 1 each PO Q6H PRN #15 tablet 09/17/18 11/07/20 5-325 Tablet] Hydrocodone/Acetaminophen 1 - 2 each PO Q6H PRN #14 tablet 01/01/19 11/07/20 [Hydrocodon-Acetaminophen 5-325] Albuterol Sulf [Ventolin Hfa 1 - 2 puffs INH Q4HR PRN #1 inhaler 05/05/19 11/07/20 Inhaler] Oxycodone HCl/Acetaminophen 1 - 2 each PO Q6H PRN #14 tablet 01/11/20 11/07/20 [Percocet 5-325 mg Tablet] Cyclobenzaprine [Flexeril] 10 mg PO TID PRN #20 tablet 05/01/20 11/07/20 Meloxicam [Mobic] 7.5 mg PO BID PRN #20 tablet 05/01/20 11/07/20 Oxycodone HCl/Acetaminophen 1 - 2 each PO Q6H PRN #14 tablet 07/15/21 [Percocet 5-325 mg Tablet] Penicillin V Potassium 500 mg PO Q6HR #40 tablet 07/15/21 Fluconazole [Diflucan] 100 mg PO DAILY #1 tablet 07/23/21 Amox/Clav 875/125 [Augmentin] 1 each PO TID #30 tablet 12/18/21 Ondansetron Odt [Zofran] 4 mg TL Q6H PRN #10 tablet 12/18/21 Oxycodone HCl/Acetaminophen 1 - 2 each PO Q6H PRN #14 tablet 12/18/21 [Percocet 5-325 mg Tablet] - Allergies Allergies/Adverse Reactions: Allergies Allergy/AdvReac Type Severity Reaction Status Date / Time codeine AdvReac Intermediate Rash Verified 12/18/21 17:18 - Social History Does the pt smoke?: Yes Smoking Status: Current every day smoker Does the pt drink ETOH?: Yes Does the pt have substance abuse?: Yes - Immunizations Immunizations are current?: Yes Immunizations: TDAP current <10years - POLST Patient has POLST: No PD ED PE NORMAL - Vitals Vital signs reviewed: Yes - General General: Alert and oriented X 3, No acute distress - HEENT HEENT: PERRL, EOMI - Neck Neck: Supple, no meningeal sign, No bony TTP - Cardiac Cardiac: RRR, No murmur - Respiratory Respiratory: No respiratory distress, Clear bilaterally - Abdomen Abdomen: Normal bowel sounds, Soft, Non tender, Other (Fairly benign exam, potentially limited by body habitus) - Back Back: No CVA TTP, No spinal TTP - Derm Derm: Normal color, Warm and dry - Extremities Extremities: No edema, No calf tenderness / cord - Neuro Neuro: Alert and oriented X 3, Normal speech Results - Vitals Vitals: Vital Signs - 24 hr 12/18/21 12/18/21 12/18/21 17:14 17:53 19:18 Temperature 37.3 C Heart Rate 95 89 89 Respiratory 16 16 16 Rate Blood Pressure 165/87 H 152/96 H 150/100 H O2 Saturation 100 98 100 12/18/21 19:32 Temperature Heart Rate 89 Respiratory 16 Rate Blood Pressure 157/85 H O2 Saturation 100 Oxygen O2 Source Room air - Labs Labs: Laboratory Tests 12/18/21 12/18/21 12/18/21 17:25 17:45 17:45 WBC 14.2 H RBC 4.76 Hgb 14.0 Hct 42.4 MCV 89.1 MCH 29.4 MCHC 33.0 RDW 12.7 Plt Count 278 MPV 11.6 H Neut # (Auto) 6.1 Lymph # (Auto) 6.8 H [place] # (Auto) 0.9 Eos # (Auto) 0.3 Baso # (Auto) 0.1 Absolute Nucleated RBC 0.00 Band Neuts % (Manual) Not Reportable Abnorm Lymph % (Manual) Not Reportable Nucleated RBC % 0.0 Neutrophils # (Manual) Not Reportable Lymphocytes # (Manual) Not Reportable Monocytes # (Manual) Not Reportable Eosinophils # (Manual) Not Reportable Basophils # (Manual) Not Reportable Differential Comment MANUAL=AUTO DIFF Manual Slide Review Indicated Platelet Estimate NORMAL (130-450,000) Platelet Morphology NORMAL APPEARANCE RBC Morph Micro Appear NORMAL APPEARANCE Sodium 137 Potassium 3.2 L Chloride 100 L Carbon Dioxide 30 Anion Gap 7.0 BUN 9 Creatinine 0.8 Estimated GFR (MDRD) 81 L Glucose 103 H Calcium 9.1 Total Bilirubin 0.3 AST 16 ALT 19 Alkaline Phosphatase 36 L Total Protein 7.3 Albumin 4.2 Globulin 3.1 Albumin/Globulin Ratio 1.4 Lipase 30 Urine Color YELLOW Urine Clarity CLEAR Urine pH 6.0 Ur Specific Royal 1.010 Urine Protein NEGATIVE Urine Glucose (UA) NEGATIVE Urine Ketones NEGATIVE Urine Occult Blood NEGATIVE Urine Nitrite NEGATIVE Urine Bilirubin NEGATIVE Urine Urobilinogen 0.2 (NORMAL) Ur Leukocyte Esterase NEGATIVE Ur Microscopic Review NOT INDICATED Urine Culture Comments NOT INDICATED Urine HCG, Qual NEGATIVE PD MEDICAL DECISION MAKING - ED course ED course: 36-year-old woman presents with abdominal pain reminiscent of prior episodes of diverticulitis. Her work-up was only positive for leukocytosis. An official CT read without diverticulitis, this was done without contrast given the ongoing severe shortage of IV contrast. That said I do wonder if she is got some inflammation of right colonic diverticula and will be treated for same. Departure - Departure Disposition: 01 Home, Self Care Clinical Impression: Abdominal pain Condition: Good Record reviewed to determine appropriate education?: Yes Instructions: Diet Low Residue, ED Abdominal Pain Female Non-Specific Abdominal Pain Prescriptions: Amox/Clav 875/125 [Augmentin] 1 each PO TID #30 tablet Oxycodone HCl/Acetaminophen [Percocet 5-325 mg Tablet] 1 - 2 each PO Q6H PRN #14 tablet PRN Reason: pain Ondansetron Odt [Zofran] 4 mg TL Q6H PRN #10 tablet PRN Reason: Nausea / Vomiting Comments: As discussed, based on the quality of your pain and the similarity to prior episodes of diverticulitis, despite the negative CAT scan I suspect you probably have a mild case of diverticulitis. Clear liquid diet for the next 24 hours and then a low residue diet as outlined on attached instructions for the next 48 hours after that. Return for new or worsening symptoms. Follow-up with your primary care physician next available appointment. I sent your prescriptions electronically to [facility] in [place]. I am prescribing a short course of narcotic pain medication for you. These are potentially dangerous and addictive medications that should be used carefully. These medications may constipate you. Take an ucqj-wiw-slmaihg stool softener (docusate) twice daily with plenty of water while taking these medications. If you go 24 hours without a bowel movement, take wfwb-xzl-bhuknto miralax, per package instructions. Do not drink or drive while taking these medications. If you received narcotic or sedating medications while in the emergency depart ment, do not drive for 24 hours. Store this medication in a safe, secure place and out of reach of children. It is a violation of federal law to give or sell this medication to another person or to use in a manner other than prescribed. The ED will not refill narcotic prescriptions, including prescriptions lost or stolen. To dispose of unwanted medications: 1. [facility] at [address] in [place] has a medication drop box. They accept prescription medications (in pill form) Saturday through Saturday 9:00 a.m. to 5:00 p.m. 2. The [facility] Police Department accepts prescription medications (in pill form only) for disposal year round. Call for more information. 3. Contact the [facility] for the next [facility] sponsored prescription drug collection event. , [phone], or [phone]; Note that many narcotic pain relievers also contain Tylenol/acetaminophen. Please ensure that your total dose of acetaminophen from all sources does not exceed 3 g (3000 mg) per day. Discharge Date/Time: 12/18/21 19:39
[2021-12-18 17:47] LABS: BILIRUBIN,URINE NEGATIVE (NEGATIVE); GLUCOSE, URINE (UA) NEGATIVE (NEGATIVE); KETONES,URINE (UA) NEGATIVE (NEGATIVE); LEUKOCYTE ESTERASE, URINE NEGATIVE (NEGATIVE); NITRITE,URINE NEGATIVE (NEGATIVE); OCCULT BLOOD,URINE NEGATIVE (NEGATIVE); PROTEIN,URINE NEGATIVE (NEGATIVE); UROBILINOGEN,URINE 0.2 (NORMAL) E.U./dL (NORMAL)
[2021-12-18 17:49] LABS: BASOPHILS # (AUTO) 0.1 10^3/uL (0.0-0.1); BASOPHILS % (AUTO) 0.5 %; EOSINOPHILS # (AUTO) 0.3 10^3/uL (0.0-0.7); HCT - HEMATOCRIT 42.4 % (37.0-47.0); LYMPHOCYTES # (AUTO) 6.8 10^3/uL (1.5-3.5); LYMPHOCYTES % (AUTO) 48.1 %; MEAN CORPUSCULAR HEMOGLOBIN 29.4 pg (27.0-31.0); MEAN CORPUSCULAR VOLUME 89.1 fL (81.0-99.0); MEAN PLATELET VOLUME 11.6 fL (7.9-10.8); MONOCYTES # (AUTO) 0.9 10^3/uL (0.0-1.0); NEUTROPHILS # (AUTO) 6.1 10^3/uL (1.5-6.6); NEUTROPHILS % (AUTO) 42.9 %; PLT - PLATELET COUNT 278 10^3/uL (130-450); RED BLOOD COUNT 4.76 10^6/uL (4.20-5.40); RED CELL DISTRIBUTION WIDTH 12.7 % (12.0-15.0); WHITE BLOOD COUNT 14.2 x10^3/uL (4.8-10.8)
[2021-12-18 17:58] LABS: SLIDE REVIEW? Indicated
[2021-12-18 18:00] LABS: CLARITY,URINE CLEAR (CLEAR); HCG UR QUAL NEGATIVE
[2021-12-18 18:05] LABS: ALBUMIN 4.2 g/dL (3.2-5.5); ALBUMIN/GLOBULIN RATIO 1.4 (1.0-2.2); BILIRUBIN,TOTAL 0.3 mg/dL (0.2-1.0); CALCIUM 9.1 mg/dL (8.5-10.3); CREATININE 0.8 mg/dL (0.4-1.0); POTASSIUM 3.2 mmol/L (3.5-5.0); TOTAL PROTEIN 7.3 g/dL (6.7-8.2)
[2021-12-18 18:29] LABS: DIFFERENTIAL COMMENT MANUAL=AUTO DIFF; PLATELET ESTIMATE, MANUAL NORMAL (130-450,000) (NORMAL); PLATELET MORPHOLOGY NORMAL APPEARANCE (NORMAL); RBC MORPHOLOGY (MULTIPLE) NORMAL APPEARANCE (NORMAL)
--- NOTE | 2021-12-18 18:36 | CT Report ---
PROCEDURE: Abdomen/Pelvis WO INDICATIONS: Abdominal pain TECHNIQUE: Noncontrast 5 mm thick sections acquired from the diaphragms to the symphysis. 5 mm coronal and sagi ttal reformats were then performed. For radiation dose reduction, the following was used: automated exposure control, adjustment of mA and/or kV according to patient size. COMPARISON: 01/11/2020 FINDINGS: Image quality: Excellent. ABDOMEN: Lung bases: Lung bases are clear. Heart size is normal. Solid organs: Liver and spleen are normal in size. Gallbladder is contracted and unremarkable. Mejia creas is normal in contours. No adrenal nodules. Kidneys are normal in size, without hydronephrosis or nephrolithiasis. Peritoneum and bowel: Unenhanced bowel loops demonstrate normal wall thickness and caliber. No free fluid or air. Nodes and vessels: No retroperitoneal or mesenteric adenopathy by size criteria. Aorta and inferior vena cava are normal in caliber. Miscellaneous: No ventral hernias. PELVIS: Genitourinary: Bladder wall thickness is normal. Miscellaneous: No inguinal hernias or adenopathy. Bones: No suspicious bony lesions. No vertebral body compression fractures. IMPRESSION: No acute finding. Reviewed by: Carroll Knight MD on 12/18/2021 6:35 PM PDT Approved by: Carroll Knight MD on 12/18/2021 6:35 PM PDT Station ID: [id number]
[2021-12-18] MEDS ORDERED: AMOX/CLAV 875 MG/125 MG TABLET PO STA (18:50)
[2021-12-18] MEDS ORDERED: ONDANSETRON 4 MG/2 ML VIAL IVP STA (19:11)
[2021-12-18 19:34] VITALS: BP 157/85
== END 2021-12-18 19:39 | disposition home or self-care (01) ==
LOC: ED 17:09
DX: R10.9 Unspecified abdominal pain (principal); F17.200 Nicotine dependence, unspecified, uncomplicated
CPT/HCPCS: 36415; 74176; 80053; 81003; 81025; 83690; 85025; 96374; 96375; 96376; 99283; 99284; A9270; J1170; 81001; 87086

== ENCOUNTER 2021-12-28 20:09 | Outpatient (CLI) | payer MEDICAID ==
--- NOTE | 2021-12-29 13:33 | Ultrasound Report ---
PROCEDURE: Abdomen Complete INDICATIONS: RLQ PAIN TECHNIQUE: Real-time scanning was performed of the abdominal and retroperitoneal organs, with image documentatio n. COMPARISON: None. FINDINGS: Liver: Liver is normal in size and demonstrates coarsened/hyperechoic echotexture. No focal intrahe patic lesions. Gallbladder: Gallbladder is normal in sonographic appearance without gallstones, wall thickening, or abnormal sonographic Young's sign. No pericholecystic fluid Biliary ducts: Intrahepatic bile ducts are non-dilated. Extrahepatic bile duct caliber measures 5 mm. Normal is 6-7 mm or less in diameter, or 10 mm or less post-cholecystectomy. Pancreas: The pancreas is not well seen secondary to overlying bowel gas Spleen: Spleen is normal in size and homogeneous in echotexture. Kidneys: Kidneys are normal in size and echotexture. Right kidney measures 12.0 cm long; left kidne y measures 11.1 cm long. No hydronephrosis or nephrolithiasis. No solid masses. Aorta: Visualized aorta is normal in caliber at less than 3 cm. Iliacs: Proximal common iliac arteries are normal in caliber at less than 2.5 cm. IVC: Intrahepatic inferior vena cava is patent. Miscellaneous: No free abdominal fluid. IMPRESSION: Limited evaluation of the abdomen secondary to moderate amount of overlying bowel gas. Within these l imitations, there appears to be diffusely increased and coarsened hepatic echotexture consistent with hepatic steatosis versus sequela of chronic hepatocellular disease. Consider correlation with liver function tests. Normal sonographic evaluation of the gallbladder. Otherwise, no acute abnormalities identified in the abdomen. Reviewed by: Sheldon Knox MD on 12/29/2021 1:32 PM PDT Approved by: Sheldon Knox MD on 12/29/2021 1:32 PM PDT Station ID: [id number]
--- NOTE | 2021-12-29 13:38 | Ultrasound Report ---
PROCEDURE: Pelvic w/Transvaginal INDICATIONS: RLQ PAIN TECHNIQUE: Real-time scanning was performed of the pelvic organs, with image documentation. Additional endovagi nal scanning was necessary due to incomplete visualization of the adnexal and endometrial structures by transabdominal scanning. COMPARISON: CT abdomen and pelvis dated 12/18/2021 and pelvic ultrasound dated 05/24/2015. FINDINGS: Uterus: Uterus is anteverted and normal in size at 8.3 x 4.9 x 6.1 cm. The myometrium is coarse and heterogeneous with possible midline uterine fundal fibroid measuring 1.2 x 1.2 x 1.2 cm. This is sub mucosal in location. The endometrium measures 4 mm in combined thickness. Ovaries: The right ovary was not visualized on this exam. The left ovary measures 3.9 x 2.2 x 3.0 cm with a calculated ovarian volume of 14 cc. Left ovary not well seen secondary to bowel gas. There i s a 3.1 x 1.8 x 3.1 cm left ovarian cyst. No adnexal masses are seen. Other: No pathologic free abdominal or pelvic fluid. IMPRESSION: Limited evaluation of the pelvic structures secondary to marked overlying bowel gas. The right ovary was not visualized. Suspected 1.2 cm midline submucosal uterine fundal fibroid. A 3.1 cm left ovarian cyst. Reviewed by: Sheldon Knox MD on 12/29/2021 1:37 PM PDT Approved by: Sheldon Knox MD on 12/29/2021 1:37 PM PDT Station ID: [id number]
== END 2021-12-28 20:10 | disposition home or self-care (01) ==
LOC: DI 20:09
PROVIDERS: ATTEND Nurse Practitioner
DX: N83.202 Unspecified ovarian cyst, left side (principal)

== ENCOUNTER 2022-05-21 08:00 | Outpatient (CLI) | payer MEDICAID | END 2022-05-21 23:59 | disposition home or self-care (01) | LOC: LAB.N 08:00 | PROVIDERS: ATTEND Physician Assistant | DX: J06.9 Acute upper respiratory infection, unspecified (principal); Z20.822 Contact with and (suspected) exposure to COVID-19 ==

== ENCOUNTER 2022-07-19 19:49 | Outpatient (CLI) | payer MEDICAID ==
[2022-07-19 20:40] LABS: BASOPHILS % (AUTO) 0.4 %; EOSINOPHILS # (AUTO) 0.2 10^3/uL (0.0-0.7); EOSINOPHILS % (AUTO) 3.2 %; HCT - HEMATOCRIT 39.3 % (37.0-47.0); LYMPHOCYTES % (AUTO) 54.7 %; MEAN CORPUSCULAR HEMOGLOBIN 28.8 pg (27.0-31.0); MEAN CORPUSCULAR HGB CONC 33.1 g/dL (32.0-36.0); MEAN CORPUSCULAR VOLUME 87.1 fL (81.0-99.0); MEAN PLATELET VOLUME 11.8 fL (7.9-10.8); MONOCYTES # (AUTO) 0.5 10^3/uL (0.0-1.0); MONOCYTES % (AUTO) 6.7 %; NEUTROPHILS # (AUTO) 2.5 10^3/uL (1.5-6.6); NEUTROPHILS % (AUTO) 34.9 %; PLT - PLATELET COUNT 203 10^3/uL (130-450); RED BLOOD COUNT 4.51 10^6/uL (4.20-5.40); RED CELL DISTRIBUTION WIDTH 11.9 % (12.0-15.0); WHITE BLOOD COUNT 7.3 x10^3/uL (4.8-10.8)
[2022-07-19 20:57] LABS: ALBUMIN 4.4 g/dL (3.2-5.5); ALBUMIN/GLOBULIN RATIO 1.6 (1.0-2.2); ALKALINE PHOSPHATASE 37 IU/L (42-121); ALT ALANINE AMINOTRANSFERASE 17 IU/L (10-60); AST ASPARTATE AMINOTRANSFERASE 17 IU/L (10-42); BILIRUBIN,TOTAL 0.5 mg/dL (0.2-1.0); BUN - BLOOD UREA NITROGEN 15 mg/dL (6-20); CALCIUM 8.7 mg/dL (8.5-10.3); CARBON DIOXIDE - CO2 29 mmol/L (21-32); CHLORIDE 101 mmol/L (101-111); CREATININE 0.8 mg/dL (0.4-1.0); GFR - MDRD 81 (>89); GLUCOSE 107 mg/dL (70-100); POTASSIUM 3.8 mmol/L (3.5-5.0); SODIUM 136 mmol/L (135-145); TOTAL PROTEIN 7.2 g/dL (6.7-8.2); URIC ACID 4.2 mg/dL (2.6-7.2)
[2022-07-19 21:24] LABS: CRP - C-REACTIVE PROTEIN < 1.0 mg/dL (0-1.0)
--- NOTE | 2022-07-20 08:24 | XRAY Report ---
PROCEDURE: Knee 2 View RT INDICATIONS: PAIN IN RIGHT LOWER LIMB TECHNIQUE: 2 views of the right knee(s) were acquired. COMPARISON: None. FINDINGS: Bones: No fractures or dislocations. Mild medial femoral tibial compartment joint space narrowing a nd subchondral sclerosis is seen. No suspicious bony lesions. Soft tissues: There is small suprapatellar joint effusion. No suspicious soft tissue calcifications . IMPRESSION: Mild medial femoral tibial compartment osteoarthritis. No right knee fracture or disloca tion. Small suprapatellar joint effusion. Reviewed by: Jose Kevin MD on 07/20/2022 8:22 AM PST Approved by: Jose Kevin MD on 07/20/2022 8:22 AM PST Station ID: [id number]
== END 2022-07-19 19:50 | disposition home or self-care (01) ==
LOC: DI 19:49
PROVIDERS: ATTEND Nurse Practitioner
DX: M17.11 Unilateral primary osteoarthritis, right knee (principal); M25.461 Effusion, right knee; M79.604 Pain in right leg
CPT/HCPCS: 36415; 80053; 84550; 85025; 85379; 86140

== ENCOUNTER 2022-08-27 17:47 | Emergency (ER) | payer MEDICAID ==
[2022-08-27 18:03] VITALS: BP 153/97
--- OUTSIDE RECORDS SUMMARY | 2022-08-27 18:16 | EXTERNAL MEDICAL SUMMARY RPT | Continuity of Care Document ---
:1985 Author Organization [facility] Address [address] [place] [address] Phone Care Team Providers Name Role Phone Rafael Mcgee Unavailable Unavailable Allergies No information. Encounters No information. Functional Status No information. Immunizations No information. Medications date description facility [facility] 2022-07-31 [facility]02 00:00 [facility] Problems date description facility 2022-08-02 09:05 Mixed hyperlipidemia [facility] 2022-08-02 09:05 Sleep apnea, unspecified [facility] 2022-08-02 09:05 Other fatigue [facility] Procedures No information. Results/Labs test date author facility value unit interpret ation Result panel 1 (unknown) (no date) (unknown[facility] Result panel 2 (unknown) (no date) (unknown[facility]) Result panel 3 (unknown) (no date) (unknown[facility] Result panel 4 (unknown) (no date) (unknown[facility]) Result panel 5 (unknown) (no date) (unknown[facility]) Result panel 6 (unknown) (no date) (unknown[facility]) Result panel 7 (unknown) (no date) (unknown[facility]) Result panel 8 (unknown) (no date) (unknown[facility]) Result panel 9 (unknown) (no date) (unknown[facility]) Result panel 10 (unknown) (no date) (unknown[facility]) Result panel 11 (unknown) (no date) (unknown[facility]) Result panel 12 (unknown) (no date) (unknown[facility]) Result panel 13 (unknown) (no date) (unknown[facility]) Result panel 14 (unknown) (no date) (unknown[facility]) Result panel 15 (unknown) (no date) (unknown[facility]) Result panel 16 (unknown) (no date) (unknown[facility]) Result panel 17 (unknown) (no date) (unknown[facility]) Result panel 18 (unknown) (no date) (unknown[facility]) Result panel 19 (unknown) (no date) (unknown[facility]) Result panel 20 (unknown) (no date) (unknown[facility]) Result panel 21 (unknown) (no date) (unknown[facility]) Result panel 22 (unknown) (no date) (unknown[facility]) Result panel 23 (unknown) (no date) (unknown[facility]) Result panel 24 (unknown) (no (unknown) (unknown) (no value) (units (unk nown) date) unknown) (unknown) (no (unknown) (unknown) 09:14 (units (unkno wn) date) unknown) (unknown) (no (unknown) (unknown) 06/07/22 (units (unkno wn) date) unknown) (unknown) (no (unknown) (unknown) 06/07/22] (units (unkn own) date) unknown) (unknown) (no (unknown) (unknown) 13 (units (unkno wn) date) unknown) (unknown) (no (unknown) (unknown) ADHD (-1998) (units (u nknown) date) unknown) (unknown) (no (unknown) (unknown) Abdominal pain (units (unknown) date) unknown) (unknown) (no (unknown) (unknown) Abnormal Pap (units (u nknown) date) smear of cervix unknown) (unknown) (no (unknown) (unknown) Abnormal chest (units (unknown) date) xray () unknown) (unknown) (no (unknown) (unknown) Age/Sex: 36 / F (units (unknown) date) Date of Service: unknown) (unknown) (no (unknown) (unknown) Allergies (units (unkn own) date) unknown) (unknown) (no (unknown) (unknown) [place], [place] (units ( unknown) date) [id number] unknown) (unknown) (no (unknown) (unknown) Anesthesia (units (unk nown) date) unknown) (unknown) (no (unknown) (unknown) Anxiety (units (unkno wn) date) unknown) (unknown) (no (unknown) (unknown) Asthma (units (unkno wn) date) unknown) (unknown) (no (unknown) (unknown) Attending Dr: (units ( unknown) date) Demi Santos unknown) Fam RIVERA (unknown) (no (unknown) (unknown) BID 01/03/22 (units (u nknown) date) [History unknown) Confirmed 06/07/22] (unknown) (no (unknown) (unknown) BMI 46.5 (units (unkno wn) date) unknown) (unknown) (no (unknown) (unknown) BP 126/76 (units (unkn own) date) unknown) (unknown) (no (unknown) (unknown) Blood Pressure (units (unknown) date) Location Rt unknown) brachial (unknown) (no (unknown) (unknown) Carpal tunnel (units ( unknown) date) syndrome () unknown) (unknown) (no (unknown) (unknown) Cervical cancer (units (unknown) date) (-2002) unknown) (unknown) (no (unknown) (unknown) [id number]-Bgqwc-Ct (units (unknown) date) oth disease unknown) (unknown) (no (unknown) (unknown) Chlamydia (units (unkn own) date) () unknown) (unknown) (no (unknown) (unknown) Chronic insomnia (units (unknown) date) unknown) (unknown) (no (unknown) (unknown) Chronic low back (units (unknown) date) pain () unknown) (unknown) (no (unknown) (unknown) Chronic, (units (unkno wn) date) continuous use of unknown) opioids (unknown) (no (unknown) (unknown) DAILY #28 tabs (units (unknown) date) 02/01/22 [Rx unknown) Confirmed 06/07/22] (unknown) (no (unknown) (unknown) : 1985 (units (unknown) date) Acct:[id number] unknown) (unknown) (no (unknown) (unknown) Depression (units (unk nown) date) unknown) (unknown) (no (unknown) (unknown) Dept at (units (unkno wn) date) . unknown) (unknown) (no (unknown) (unknown) Diverticular (units (u nknown) date) disease () unknown) (unknown) (no (unknown) (unknown) Documented By: (units (unknown) date) Demi Otto unknown) Danielle RIVERA 06/07/22 09 (unknown) (no (unknown) (unknown) Draft (units (unkno wn) date) unknown) (unknown) (no (unknown) (unknown) Family History (units (unknown) date) (Updated 01/31/22 unknown) @ 20:35 by Radha Toledo) (unknown) (no (unknown) (unknown) Father History (units (unknown) date) of heart disease unknown) (unknown) (no (unknown) (unknown) Fibromyalgia (units (u nknown) date) (-2016) unknown) (unknown) (no (unknown) (unknown) [facility]) (unknown) (no (unknown) (unknown) Gout (-2016) (units (u nknown) date) unknown) (unknown) (no (unknown) (unknown) Gynecology Visit (units (unknown) date) unknown) (unknown) (no (unknown) (unknown) H/O LEEP (units (unkno wn) date) unknown) (unknown) (no (unknown) (unknown) H/O laparoscopy (units (unknown) date) () unknown) (unknown) (no (unknown) (unknown) Height 5 ft 6 in (units (unknown) date) unknown) (unknown) (no (unknown) (unknown) Herpes (-2018) (units (unknown) date) unknown) (unknown) (no (unknown) (unknown) History of (units (unk nown) date) unknown) (-08/08/04) (unknown) (no (unknown) (unknown) Human papilloma (units (unknown) date) virus () unknown) (unknown) (no (unknown) (unknown) Hyperlipidemia (units (unknown) date) unknown) (unknown) (no (unknown) (unknown) Hypertension (units (u nknown) date) unknown) (unknown) (no (unknown) (unknown) Intake Note: (units (u nknown) date) unknown) (unknown) (no (unknown) (unknown) Intake performed (units (unknown) date) by: unknown) Abby Tate (unknown) (no (unknown) (unknown) Intake (units (unkno wn) date) unknown) (unknown) (no (unknown) (unknown) Intake- Clincial (units (unknown) date) Staff unknown) (unknown) (no (unknown) (unknown) Irritable bowel (units (unknown) date) syndrome () unknown) (unknown) (no (unknown) (unknown) Left ovarian (units (u nknown) date) cyst () unknown) (unknown) (no (unknown) (unknown) Loc: [facility] (units (unkno wn) date) unknown) (unknown) (no (unknown) (unknown) [id number] (units (unk nown) date) unknown) (unknown) (no (unknown) (unknown) Medical History (units (unknown) date) (Updated 01/31/22 unknown) @ 20:23 by Radha Toledo) (unknown) (no (unknown) (unknown) Medications (units (un known) date) unknown) (unknown) (no (unknown) (unknown) Mental health (units ( unknown) date) problem unknown) (unknown) (no (unknown) (unknown) Migraines (units (unkn own) date) () unknown) (unknown) (no (unknown) (unknown) Mother Diabetes (units (unknown) date) mellitus unknown) (unknown) (no (unknown) (unknown) No Known Drug (units ( unknown) date) Allergies Allergy unknown) (Verified 06/07/22 09:14) (unknown) (no (unknown) (unknown) PFSH (units (unkno wn) date) unknown) (unknown) (no (unknown) (unknown) Painful (units (unkno wn) date) menstrual periods unknown) (unknown) (no (unknown) (unknown) Patient: (units (unkno wn) date) Cory Osborne unknown) B MR#: (unknown) (no (unknown) (unknown) Position Sitting (units (unknown) date) unknown) (unknown) (no (unknown) (unknown) Reason For Visit (units (unknown) date) unknown) (unknown) (no (unknown) (unknown) Severe obesity (units (unknown) date) (BMI >= 40) unknown) (unknown) (no (unknown) (unknown) Shortness of (units (u nknown) date) breath unknown) (unknown) (no (unknown) (unknown) Signed By: (units (unk nown) date) unknown) (unknown) (no (unknown) (unknown) Sleep apnea (units (un known) date) () unknown) (unknown) (no (unknown) (unknown) Smoking Status: (units (unknown) date) Never smoker unknown) (unknown) (no (unknown) (unknown) Social History (units (unknown) date) unknown) (unknown) (no (unknown) (unknown) Status post (units (un known) date) right foot unknown) surgery () (unknown) (no (unknown) (unknown) Surgical History (units (unknown) date) (Updated 01/31/22 unknown) @ 20:23 by Radha Toledo) (unknown) (no (unknown) (unknown) This note may (units ( unknown) date) have been all or unknown) partially generated using voice recognition (unknown) (no (unknown) (unknown) Tobacco + (units (unkn own) date) Substance Use unknown) (unknown) (no (unknown) (unknown) Tobacco Status (units (unknown) date) unknown) (unknown) (no (unknown) (unknown) Visit Reasons: (units (unknown) date) IUD unknown) placement/nexplan on removal*NOAUTHREQ D (unknown) (no (unknown) (unknown) Vitals (units (unkno wn) date) unknown) (unknown) (no (unknown) (unknown) Weight 288 lb (units ( unknown) date) unknown) (unknown) (no (unknown) (unknown) [History (units (unkno wn) date) Confirmed unknown) 06/07/22] (unknown) (no (unknown) (unknown) buprenorphine 8 (units (unknown) date) mg-naloxone 2 mg unknown) sublingual film (Suboxone) 1 film sublingual (unknown) (no (unknown) (unknown) bupropion HCl (units ( unknown) date) 300 mg 24 hr unknown) tablet, extended release 300 mg PO DAILY 01/03/22 (unknown) (no (unknown) (unknown) 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 (units (unknown) date) If there are any unknown) questions, please contact the Medical Records (unknown) (no (unknown) (unknown) last pap 1 year (units (unknown) date) hx abnormal unknown) (unknown) (no (unknown) (unknown) may occur. (units (unk nown) date) Occasional unknown) wrong-word or 'sound-alike' substitutions may have (unknown) (no (unknown) (unknown) norgestimate (units (u nknown) date) 0.25 mg-ethinyl unknown) estradiol 35 mcg tablet (Sprintec (28)) 1 tab PO (unknown) (no (unknown) (unknown) occurred due to (units (unknown) date) the inherent unknown) limitations of voice recognition software. Please (unknown) (no (unknown) (unknown) pt here for IUD (units (unknown) date) placement. unknown) (unknown) (no (unknown) (unknown) read the note (units ( unknown) date) carefully and unknown) recognize, using context, where these substitutions (unknown) (no (unknown) (unknown) software. 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 (unknown) (no (unknown) (unknown) trazodone 50 mg (units (unknown) date) tablet 50 mg PO unknown) BEDTIME PRN sleep 01/03/22 [History Confirmed Result panel 25 (unknown) (no (unknown) (unknown) (no value) (units (unk nown) date) unknown) (unknown) (no (unknown) (unknown) 09:14 (units (unkno wn) date) unknown) (unknown) (no (unknown) (unknown) 06/07/22 (units (unkno wn) date) unknown) (unknown) (no (unknown) (unknown) 06/07/22] (units (unkn own) date) unknown) (unknown) (no (unknown) (unknown) 13 (units (unkno wn) date) unknown) (unknown) (no (unknown) (unknown) ADHD (-1998) (units (u nknown) date) unknown) (unknown) (no (unknown) (unknown) Abdominal pain (units (unknown) date) unknown) (unknown) (no (unknown) (unknown) Abnormal Pap (units (u nknown) date) smear of cervix unknown) (unknown) (no (unknown) (unknown) Abnormal chest (units (unknown) date) xray (-2014) unknown) (unknown) (no (unknown) (unknown) Age/Sex: 36 / F (units (unknown) date) Date of Service: unknown) (unknown) (no (unknown) (unknown) Allergies (units (unkn own) date) unknown) (unknown) (no (unknown) (unknown) [place], [place] (units ( unknown) date) [id number] unknown) (unknown) (no (unknown) (unknown) Anesthesia (units (unk nown) date) unknown) (unknown) (no (unknown) (unknown) Anxiety (units (unkno wn) date) unknown) (unknown) (no (unknown) (unknown) Assessment + (units (u nknown) date) Plan unknown) (unknown) (no (unknown) (unknown) Asthma (units (unkno wn) date) unknown) (unknown) (no (unknown) (unknown) Attending Dr: (units ( unknown) date) Demi Santos unknown) Fam RIVERA (unknown) (no (unknown) (unknown) BID 01/03/22 (units (u nknown) date) [History unknown) Confirmed 06/07/22] (unknown) (no (unknown) (unknown) BMI 46.5 (units (unkno wn) date) unknown) (unknown) (no (unknown) (unknown) BP 126/76 (units (unkn own) date) unknown) (unknown) (no (unknown) (unknown) Blood Pressure (units (unknown) date) Location Rt unknown) brachial (unknown) (no (unknown) (unknown) Carpal tunnel (units ( unknown) date) syndrome () unknown) (unknown) (no (unknown) (unknown) Cervical cancer (units (unknown) date) () unknown) (unknown) (no (unknown) (unknown) Dxlydhi-Apreu-Ci (units (unknown) date) oth disease unknown) (unknown) (no (unknown) (unknown) Chief Complaint (units (unknown) date) unknown) (unknown) (no (unknown) (unknown) Chief Complaint: (units (unknown) date) Mirena IUD unknown) placement (unknown) (no (unknown) (unknown) Chlamydia (units (unkn own) date) () unknown) (unknown) (no (unknown) (unknown) Chronic insomnia (units (unknown) date) unknown) (unknown) (no (unknown) (unknown) Chronic low back (units (unknown) date) pain () unknown) (unknown) (no (unknown) (unknown) Chronic, (units (unkno wn) date) continuous use of unknown) opioids (unknown) (no (unknown) (unknown) Confirmed (units (unkn own) date) 06/07/22] unknown) (unknown) (no (unknown) (unknown) DAILY #28 tabs (units (unknown) date) 02/01/22 [Rx unknown) Confirmed 06/07/22] (unknown) (no (unknown) (unknown) : 1985 (units (unknown) date) Acct:[id number] unknown) (unknown) (no (unknown) (unknown) Depression (units (unk nown) date) unknown) (unknown) (no (unknown) (unknown) Dept at (units (unkno wn) date) . unknown) (unknown) (no (unknown) (unknown) Diverticular (units (u nknown) date) disease () unknown) (unknown) (no (unknown) (unknown) Documented By: (units (unknown) date) Demi Otto unknown) Danielle RIVERA 06/07/22 09 (unknown) (no (unknown) (unknown) Draft (units (unkno wn) date) unknown) (unknown) (no (unknown) (unknown) Family History (units (unknown) date) (Updated 01/31/22 unknown) @ 20:35 by Radha Toledo) (unknown) (no (unknown) (unknown) Father History (units (unknown) date) of heart disease unknown) (unknown) (no (unknown) (unknown) Fibromyalgia (units (u nknown) date) (-2015) unknown) (unknown) (no (unknown) (unknown) [facility] unknown) (unknown) (no (unknown) (unknown) Gout (-2016) (units (u nknown) date) unknown) (unknown) (no (unknown) (unknown) Gynecology Visit (units (unknown) date) unknown) (unknown) (no (unknown) (unknown) H/O LEEP (units (unkno wn) date) unknown) (unknown) (no (unknown) (unknown) H/O laparoscopy (units (unknown) date) (-2009) unknown) (unknown) (no (unknown) (unknown) HPI (units (unkno wn) date) unknown) (unknown) (no (unknown) (unknown) Height 5 ft 6 in (units (unknown) date) unknown) (unknown) (no (unknown) (unknown) Herpes (-2018) (units (unknown) date) unknown) (unknown) (no (unknown) (unknown) History of (units (unk nown) date) unknown) (-08/08/04) (unknown) (no (unknown) (unknown) Human papilloma (units (unknown) date) virus (-2002) unknown) (unknown) (no (unknown) (unknown) Hyperlipidemia (units (unknown) date) unknown) (unknown) (no (unknown) (unknown) Hypertension (units (u nknown) date) unknown) (unknown) (no (unknown) (unknown) Intake Note: (units (u nknown) date) unknown) (unknown) (no (unknown) (unknown) Intake performed (units (unknown) date) by: unknown) Abby Tate (unknown) (no (unknown) (unknown) Intake (units (unkno wn) date) unknown) (unknown) (no (unknown) (unknown) Intake- Clincial (units (unknown) date) Staff unknown) (unknown) (no (unknown) (unknown) Irritable bowel (units (unknown) date) syndrome () unknown) (unknown) (no (unknown) (unknown) Left ovarian (units (u nknown) date) cyst () unknown) (unknown) (no (unknown) (unknown) Loc: [facility] (units (unkno wn) date) unknown) (unknown) (no (unknown) (unknown) [id number] (units (unk nown) date) unknown) (unknown) (no (unknown) (unknown) Medical History (units (unknown) date) (Updated 01/31/22 unknown) @ 20:23 by Radha Toledo) (unknown) (no (unknown) (unknown) Medications (units (un known) date) unknown) (unknown) (no (unknown) (unknown) Medications: (units (u nknown) date) unknown) (unknown) (no (unknown) (unknown) Mental health (units ( unknown) date) problem unknown) (unknown) (no (unknown) (unknown) Migraines (units (unkn own) date) (-2003) unknown) (unknown) (no (unknown) (unknown) Mother Diabetes (units (unknown) date) mellitus unknown) (unknown) (no (unknown) (unknown) New (units (unkno wn) date) unknown) (unknown) (no (unknown) (unknown) No Known Drug (units ( unknown) date) Allergies Allergy unknown) (Verified 06/07/22 09:14) (unknown) (no (unknown) (unknown) Orders (units (unkno wn) date) unknown) (unknown) (no (unknown) (unknown) Orders: (units (unkno wn) date) unknown) (unknown) (no (unknown) (unknown) PAP with hr HPV (units (unknown) date) 06/07/22 Z12.4 - unknown) Encounter for screening for malignant neoplasm (unknown) (no (unknown) (unknown) PFSH (units (unkno wn) date) unknown) (unknown) (no (unknown) (unknown) Painful (units (unkno wn) date) menstrual periods unknown) (unknown) (no (unknown) (unknown) Patient: (units (unkno wn) date) Cory Osborne unknown) B MR#: (unknown) (no (unknown) (unknown) Position Sitting (units (unknown) date) unknown) (unknown) (no (unknown) (unknown) Reason For Visit (units (unknown) date) unknown) (unknown) (no (unknown) (unknown) Severe obesity (units (unknown) date) (BMI >= 40) unknown) (unknown) (no (unknown) (unknown) Shortness of (units (u nknown) date) breath unknown) (unknown) (no (unknown) (unknown) Signed By: (units (unk nown) date) unknown) (unknown) (no (unknown) (unknown) Sleep apnea (units (un known) date) () unknown) (unknown) (no (unknown) (unknown) Smoking Status: (units (unknown) date) Never smoker unknown) (unknown) (no (unknown) (unknown) Social History (units (unknown) date) unknown) (unknown) (no (unknown) (unknown) Status post (units (un known) date) right foot unknown) surgery (-2000) (unknown) (no (unknown) (unknown) Surgical History (units (unknown) date) (Updated 01/31/22 unknown) @ 20:23 by Radha Toledo) (unknown) (no (unknown) (unknown) This note may (units ( unknown) date) have been all or unknown) partially generated using voice recognition (unknown) (no (unknown) (unknown) Tobacco + (units (unkn own) date) Substance Use unknown) (unknown) (no (unknown) (unknown) Tobacco Status (units (unknown) date) unknown) (unknown) (no (unknown) (unknown) Visit Reasons: (units (unknown) date) IUD unknown) placement/nexplan on removal*NOAUTHREQ D (unknown) (no (unknown) (unknown) Vitals (units (unkno wn) date) unknown) (unknown) (no (unknown) (unknown) Weight 288 lb (units ( unknown) date) unknown) (unknown) (no (unknown) (unknown) [History (units (unkno wn) date) Confirmed unknown) 06/07/22] (unknown) (no (unknown) (unknown) buprenorphine 8 (units (unknown) date) mg-naloxone 2 mg unknown) sublingual film (Suboxone) 1 film sublingual (unknown) (no (unknown) (unknown) bupropion HCl (units ( unknown) date) 300 mg 24 hr unknown) tablet, extended release 300 mg PO DAILY 01/03/22 (unknown) (no (unknown) (unknown) 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 (units (unknown) date) If there are any unknown) questions, please contact the Medical Records (unknown) (no (unknown) (unknown) last pap 1 year (units (unknown) date) hx abnormal unknown) (unknown) (no (unknown) (unknown) may occur. (units (unk nown) date) Occasional unknown) wrong-word or 'sound-alike' substitutions may have (unknown) (no (unknown) (unknown) norgestimate (units (u nknown) date) 0.25 mg-ethinyl unknown) estradiol 35 mcg tablet (Sprintec (28)) 1 tab PO (unknown) (no (unknown) (unknown) occurred due to (units (unknown) date) the inherent unknown) limitations of voice recognition software. Please (unknown) (no (unknown) (unknown) of cervix, (units (unk nown) date) Z86.19 - Personal unknown) history of other infectious and parasitic diseases (unknown) (no (unknown) (unknown) oxycodone 5 mg (units (unknown) date) PO Q12H PRN 5 unknown) tabs 0RF pain, severe (unknown) (no (unknown) (unknown) oxycodone 5 mg (units (unknown) date) tablet 5 mg PO unknown) Q12H PRN pain, severe #5 tabs 06/07/22 [Rx (unknown) (no (unknown) (unknown) pt here for IUD (units (unknown) date) placement. unknown) (unknown) (no (unknown) (unknown) read the note (units ( unknown) date) carefully and unknown) recognize, using context, where these substitutions (unknown) (no (unknown) (unknown) software. 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 (unknown) (no (unknown) (unknown) trazodone 50 mg (units (unknown) date) tablet 50 mg PO unknown) BEDTIME PRN sleep 01/03/22 [History Confirmed Result panel 26 (unknown) (no (unknown) (unknown) (no value) (units (unk nown) date) unknown) (unknown) (no (unknown) (unknown) 09:14 (units (unkno wn) date) unknown) (unknown) (no (unknown) (unknown) 06/07/22 (units (unkno wn) date) unknown) (unknown) (no (unknown) (unknown) 06/07/22] (units (unkn own) date) unknown) (unknown) (no (unknown) (unknown) 13 (units (unkno wn) date) unknown) (unknown) (no (unknown) (unknown) 36 yo (units (unk nown) date) female presents unknown) for Mirena IUD placement for attempted conservative (unknown) (no (unknown) (unknown) ADHD (-1998) (units (u nknown) date) unknown) (unknown) (no (unknown) (unknown) Abdominal pain (units (unknown) date) unknown) (unknown) (no (unknown) (unknown) Abnormal Pap (units (u nknown) date) smear of cervix unknown) (unknown) (no (unknown) (unknown) Abnormal chest (units (unknown) date) xray (-2014) unknown) (unknown) (no (unknown) (unknown) Age/Sex: 36 / F (units (unknown) date) Date of Service: unknown) (unknown) (no (unknown) (unknown) Allergies (units (unkn own) date) unknown) (unknown) (no (unknown) (unknown) [place], [place] (units ( unknown) date) [id number] unknown) (unknown) (no (unknown) (unknown) Anesthesia (units (unk nown) date) unknown) (unknown) (no (unknown) (unknown) Anxiety (units (unkno wn) date) unknown) (unknown) (no (unknown) (unknown) Assessment + (units (u nknown) date) Plan unknown) (unknown) (no (unknown) (unknown) Asthma (units (unkno wn) date) unknown) (unknown) (no (unknown) (unknown) Attending Dr: (units ( unknown) date) Demi Santos unknown) Fam RIVERA (unknown) (no (unknown) (unknown) BID 01/03/22 (units (u nknown) date) [History unknown) Confirmed 06/07/22] (unknown) (no (unknown) (unknown) BMI 46.5 (units (unkno wn) date) unknown) (unknown) (no (unknown) (unknown) BP 126/76 (units (unkn own) date) unknown) (unknown) (no (unknown) (unknown) Blood Pressure (units (unknown) date) Location Rt unknown) brachial (unknown) (no (unknown) (unknown) Carpal tunnel (units ( unknown) date) syndrome () unknown) (unknown) (no (unknown) (unknown) Cervical cancer (units (unknown) date) () unknown) (unknown) (no (unknown) (unknown) Tykgwdy-Vnubn-Fo (units (unknown) date) oth disease unknown) (unknown) (no (unknown) (unknown) Chief Complaint (units (unknown) date) unknown) (unknown) (no (unknown) (unknown) Chief Complaint: (units (unknown) date) Mirena IUD unknown) placement (unknown) (no (unknown) (unknown) Chlamydia (units (unkn own) date) () unknown) (unknown) (no (unknown) (unknown) Chronic insomnia (units (unknown) date) unknown) (unknown) (no (unknown) (unknown) Chronic low back (units (unknown) date) pain (-2015) unknown) (unknown) (no (unknown) (unknown) Chronic, (units (unkno wn) date) continuous use of unknown) opioids (unknown) (no (unknown) (unknown) Confirmed (units (unkn own) date) 06/07/22] unknown) (unknown) (no (unknown) (unknown) DAILY #28 tabs (units (unknown) date) 02/01/22 [Rx unknown) Confirmed 06/07/22] (unknown) (no (unknown) (unknown) : 1985 (units (unknown) date) Acct:[id number] unknown) (unknown) (no (unknown) (unknown) Depression (units (unk nown) date) unknown) (unknown) (no (unknown) (unknown) Dept at (units (unkno wn) date) . unknown) (unknown) (no (unknown) (unknown) Details: (units (unkno wn) date) unknown) (unknown) (no (unknown) (unknown) Diverticular (units (u nknown) date) disease () unknown) (unknown) (no (unknown) (unknown) Documented By: (units (unknown) date) Demi Otto unknown) Danielle RIVERA 06/07/22 09 (unknown) (no (unknown) (unknown) Draft (units (unkno wn) date) unknown) (unknown) (no (unknown) (unknown) Family History (units (unknown) date) (Updated 01/31/22 unknown) @ 20:35 by Radha Toledo) (unknown) (no (unknown) (unknown) Father History (units (unknown) date) of heart disease unknown) (unknown) (no (unknown) (unknown) Fibromyalgia (units (u nknown) date) (-2016) unknown) (unknown) (no (unknown) (unknown) [facility]) (unknown) (no (unknown) (unknown) Gout (-2017) (units (u nknown) date) unknown) (unknown) (no (unknown) (unknown) Gynecology Visit (units (unknown) date) unknown) (unknown) (no (unknown) (unknown) H/O LEEP (units (unkno wn) date) unknown) (unknown) (no (unknown) (unknown) H/O laparoscopy (units (unknown) date) () unknown) (unknown) (no (unknown) (unknown) HPI (units (unkno wn) date) unknown) (unknown) (no (unknown) (unknown) Height 5 ft 6 in (units (unknown) date) unknown) (unknown) (no (unknown) (unknown) Herpes (-2018) (units (unknown) date) unknown) (unknown) (no (unknown) (unknown) History of (units (unk nown) date) unknown) (-08/08/04) (unknown) (no (unknown) (unknown) Human papilloma (units (unknown) date) virus () unknown) (unknown) (no (unknown) (unknown) Hyperlipidemia (units (unknown) date) unknown) (unknown) (no (unknown) (unknown) Hypertension (units (u nknown) date) unknown) (unknown) (no (unknown) (unknown) Intake Note: (units (u nknown) date) unknown) (unknown) (no (unknown) (unknown) Intake performed (units (unknown) date) by: unknown) Abby Tate (unknown) (no (unknown) (unknown) Intake (units (unkno wn) date) unknown) (unknown) (no (unknown) (unknown) Intake- Clincial (units (unknown) date) Staff unknown) (unknown) (no (unknown) (unknown) Irritable bowel (units (unknown) date) syndrome () unknown) (unknown) (no (unknown) (unknown) Left ovarian (units (u nknown) date) cyst () unknown) (unknown) (no (unknown) (unknown) Loc: [facility] (units (unkno wn) date) unknown) (unknown) (no (unknown) (unknown) [id number] (units (unk nown) date) unknown) (unknown) (no (unknown) (unknown) Medical History (units (unknown) date) (Updated 01/31/22 unknown) @ 20:23 by Radha Toledo) (unknown) (no (unknown) (unknown) Medications (units (un known) date) unknown) (unknown) (no (unknown) (unknown) Medications: (units (u nknown) date) unknown) (unknown) (no (unknown) (unknown) Mental health (units ( unknown) date) problem unknown) (unknown) (no (unknown) (unknown) Migraines (units (unkn own) date) () unknown) (unknown) (no (unknown) (unknown) Mother Diabetes (units (unknown) date) mellitus unknown) (unknown) (no (unknown) (unknown) New (units (unkno wn) date) unknown) (unknown) (no (unknown) (unknown) No Known Drug (units ( unknown) date) Allergies Allergy unknown) (Verified 06/07/22 09:14) (unknown) (no (unknown) (unknown) Orders (units (unkno wn) date) unknown) (unknown) (no (unknown) (unknown) Orders: (units (unkno wn) date) unknown) (unknown) (no (unknown) (unknown) PAP with hr HPV (units (unknown) date) 06/07/22 Z12.4 - unknown) Encounter for screening for malignant neoplasm (unknown) (no (unknown) (unknown) PFSH (units (unkno wn) date) unknown) (unknown) (no (unknown) (unknown) Painful (units (unkno wn) date) menstrual periods unknown) (unknown) (no (unknown) (unknown) Patient: (units (unkno wn) date) Cory Osborne unknown) B MR#: (unknown) (no (unknown) (unknown) Position Sitting (units (unknown) date) unknown) (unknown) (no (unknown) (unknown) Reason For Visit (units (unknown) date) unknown) (unknown) (no (unknown) (unknown) Severe obesity (units (unknown) date) (BMI >= 40) unknown) (unknown) (no (unknown) (unknown) Shortness of (units (u nknown) date) breath unknown) (unknown) (no (unknown) (unknown) Signed By: (units (unk nown) date) unknown) (unknown) (no (unknown) (unknown) Sleep apnea (units (un known) date) () unknown) (unknown) (no (unknown) (unknown) Smoking Status: (units (unknown) date) Never smoker unknown) (unknown) (no (unknown) (unknown) Social History (units (unknown) date) unknown) (unknown) (no (unknown) (unknown) Status post (units (un known) date) right foot unknown) surgery (-2000) (unknown) (no (unknown) (unknown) Surgical History (units (unknown) date) (Updated 01/31/22 unknown) @ 20:23 by Radha Toledo) (unknown) (no (unknown) (unknown) This note may (units ( unknown) date) have been all or unknown) partially generated using voice recognition (unknown) (no (unknown) (unknown) Tobacco + (units (unkn own) date) Substance Use unknown) (unknown) (no (unknown) (unknown) Tobacco Status (units (unknown) date) unknown) (unknown) (no (unknown) (unknown) Visit Reasons: (units (unknown) date) IUD unknown) placement/nexplan on removal*NOAUTHREQ D (unknown) (no (unknown) (unknown) Vitals (units (unkno wn) date) unknown) (unknown) (no (unknown) (unknown) Weight 288 lb (units ( unknown) date) unknown) (unknown) (no (unknown) (unknown) [History (units (unkno wn) date) Confirmed unknown) 06/07/22] (unknown) (no (unknown) (unknown) buprenorphine 8 (units (unknown) date) mg-naloxone 2 mg unknown) sublingual film (Suboxone) 1 film sublingual (unknown) (no (unknown) (unknown) bupropion HCl (units ( unknown) date) 300 mg 24 hr unknown) tablet, extended release 300 mg PO DAILY 01/03/22 (unknown) (no (unknown) (unknown) 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 (units (unknown) date) If there are any unknown) questions, please contact the Medical Records (unknown) (no (unknown) (unknown) last pap 1 year (units (unknown) date) hx abnormal unknown) (unknown) (no (unknown) (unknown) may occur. (units (unk nown) date) Occasional unknown) wrong-word or 'sound-alike' substitutions may have (unknown) (no (unknown) (unknown) norgestimate (units (u nknown) date) 0.25 mg-ethinyl unknown) estradiol 35 mcg tablet (Sprintec (28)) 1 tab PO (unknown) (no (unknown) (unknown) occurred due to (units (unknown) date) the inherent unknown) limitations of voice recognition software. Please (unknown) (no (unknown) (unknown) of cervix, (units (unk nown) date) Z86.19 - Personal unknown) history of other infectious and parasitic diseases (unknown) (no (unknown) (unknown) oxycodone 5 mg (units (unknown) date) PO Q12H PRN 5 unknown) tabs 0RF pain, severe (unknown) (no (unknown) (unknown) oxycodone 5 mg (units (unknown) date) tablet 5 mg PO unknown) Q12H PRN pain, severe #5 tabs 06/07/22 [Rx (unknown) (no (unknown) (unknown) pt here for IUD (units (unknown) date) placement. unknown) (unknown) (no (unknown) (unknown) read the note (units ( unknown) date) carefully and unknown) recognize, using context, where these substitutions (unknown) (no (unknown) (unknown) software. 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 (unknown) (no (unknown) (unknown) trazodone 50 mg (units (unknown) date) tablet 50 mg PO unknown) BEDTIME PRN sleep 01/03/22 [History Confirmed (unknown) (no (unknown) (unknown) treatment of (units (u nknown) date) uterine unknown) adenomyosis, pelvic pain. Result panel 27 (unknown) (no (unknown) (unknown) (no value) (units (unk nown) date) unknown) (unknown) (no (unknown) (unknown) 09:14 (units (unkno wn) date) unknown) (unknown) (no (unknown) (unknown) 1. Uterine (units (unk nown) date) findings unknown) suggestive of adenomyosis. (unknown) (no (unknown) (unknown) 06/07/22 (units (unkno wn) date) unknown) (unknown) (no (unknown) (unknown) 06/07/22] (units (unkn own) date) unknown) (unknown) (no (unknown) (unknown) [address] [place] [address] (units (unknown) date) unknown) (unknown) (no (unknown) (unknown) 13 (units (unkno wn) date) unknown) (unknown) (no (unknown) (unknown) 2. Unremarkable (units (unknown) date) appearance of the unknown) ovaries. (unknown) (no (unknown) (unknown) 3. A 4 cm ovoid (units (unknown) date) region of unknown) abnormal signal is present at the anterior midline (unknown) (no (unknown) (unknown) 36 yo (units (unk nown) date) female presents unknown) for Mirena IUD placement for attempted conservative (unknown) (no (unknown) (unknown) ? (units (unkno wn) date) unknown) (unknown) (no (unknown) (unknown) ADHD (-1998) (units (u nknown) date) unknown) (unknown) (no (unknown) (unknown) Abdominal pain (units (unknown) date) unknown) (unknown) (no (unknown) (unknown) Abnormal Pap (units (u nknown) date) smear of cervix unknown) (unknown) (no (unknown) (unknown) Abnormal chest (units (unknown) date) xray (-2014) unknown) (unknown) (no (unknown) (unknown) Accession (units (unkn own) date) Number: unknown) [id number] ?? (unknown) (no (unknown) (unknown) Acct:[id number] (units (unknown) date) unknown) (unknown) (no (unknown) (unknown) Adnexa:? Both (units ( unknown) date) ovaries are unknown) normal in size, without suspicious cystic or solid (unknown) (no (unknown) (unknown) Age/Sex: 36 / F (units (unknown) date) Date of Service: unknown) (unknown) (no (unknown) (unknown) Age/Sex: 36 / F (units (unknown) date) unknown) (unknown) (no (unknown) (unknown) Allergies (units (unkn own) date) unknown) (unknown) (no (unknown) (unknown) [place], [place] (units ( unknown) date) [address] unknown) (unknown) (no (unknown) (unknown) Anesthesia (units (unk nown) date) unknown) (unknown) (no (unknown) (unknown) Anxiety (units (unkno wn) date) unknown) (unknown) (no (unknown) (unknown) Assessment + (units (u nknown) date) Plan unknown) (unknown) (no (unknown) (unknown) Asthma (units (unkno wn) date) unknown) (unknown) (no (unknown) (unknown) Attending Dr: (units ( unknown) date) Demi Santos unknown) Fam RIVERA (unknown) (no (unknown) (unknown) BID 01/03/22 (units (u nknown) date) [History unknown) Confirmed 06/07/22] (unknown) (no (unknown) (unknown) BMI 46.5 (units (unkno wn) date) unknown) (unknown) (no (unknown) (unknown) BP 126/76 (units (unkn own) date) unknown) (unknown) (no (unknown) (unknown) Blood Pressure (units (unknown) date) Location Rt unknown) brachial (unknown) (no (unknown) (unknown) Bones:? Marrow (units (unknown) date) demonstrates unknown) normal overall signal.? (unknown) (no (unknown) (unknown) Bowel and (units (unkn own) date) peritoneum:? No unknown) pathologic free pelvic fluid.? Inferior colon and (unknown) (no (unknown) (unknown) COMPARISON:? (units (u nknown) date) None. unknown) (unknown) (no (unknown) (unknown) Carpal tunnel (units ( unknown) date) syndrome () unknown) (unknown) (no (unknown) (unknown) Cervical cancer (units (unknown) date) (-2002) unknown) (unknown) (no (unknown) (unknown) [place]-Tormv-Jf (units (unknown) date) oth disease unknown) (unknown) (no (unknown) (unknown) Chief Complaint (units (unknown) date) unknown) (unknown) (no (unknown) (unknown) Chief Complaint: (units (unknown) date) Mirena IUD unknown) placement (unknown) (no (unknown) (unknown) Chlamydia (units (unkn own) date) () unknown) (unknown) (no (unknown) (unknown) Chronic insomnia (units (unknown) date) unknown) (unknown) (no (unknown) (unknown) Chronic low back (units (unknown) date) pain () unknown) (unknown) (no (unknown) (unknown) Chronic, (units (unkno wn) date) continuous use of unknown) opioids (unknown) (no (unknown) (unknown) Confirmed (units (unkn own) date) 06/07/22] unknown) (unknown) (no (unknown) (unknown) Coronal HASTE, (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 unknown) (unknown) (no (unknown) (unknown) Details: (units (unkno wn) date) unknown) (unknown) (no (unknown) (unknown) Diverticular (units (u nknown) date) disease () unknown) (unknown) (no (unknown) (unknown) Documented By: (units (unknown) date) Demi Otto unknown) Danielle RIVERA 06/07/22 09 (unknown) (no (unknown) (unknown) Draft (units (unkno wn) date) unknown) (unknown) (no (unknown) (unknown) FINDINGS:? (units (unk nown) date) unknown) (unknown) (no (unknown) (unknown) Family History (units (unknown) date) (Updated 01/31/22 unknown) @ 20:35 by Radha Toledo) (unknown) (no (unknown) (unknown) Father History (units (unknown) date) of heart disease unknown) (unknown) (no (unknown) (unknown) Fibromyalgia (units (u nknown) date) () unknown) (unknown) (no (unknown) (unknown) [facility] unknown) (unknown) (no (unknown) (unknown) Gout () (units (u nknown) date) unknown) (unknown) (no (unknown) (unknown) Gynecology Visit (units (unknown) date) unknown) (unknown) (no (unknown) (unknown) H/O LEEP (units (unkno wn) date) unknown) (unknown) (no (unknown) (unknown) H/O laparoscopy (units (unknown) date) () unknown) (unknown) (no (unknown) (unknown) HPI (units (unkno wn) date) unknown) (unknown) (no (unknown) (unknown) Height 5 ft 6 in (units (unknown) date) unknown) (unknown) (no (unknown) (unknown) Herpes () (units (unknown) date) unknown) (unknown) (no (unknown) (unknown) History of (units (unk nown) date) unknown) (-08/08/04) (unknown) (no (unknown) (unknown) Human papilloma (units (unknown) date) virus () unknown) (unknown) (no (unknown) (unknown) Hyperlipidemia (units (unknown) date) unknown) (unknown) (no (unknown) (unknown) Hypertension (units (u nknown) date) unknown) (unknown) (no (unknown) (unknown) IMPRESSION:? (units (u nknown) date) unknown) (unknown) (no (unknown) (unknown) INDICATIONS:? (units ( unknown) date) pelvic cramping unknown) (unknown) (no (unknown) (unknown) Image quality:? (units (unknown) date) Adequate.? unknown) (unknown) (no (unknown) (unknown) Intake Note: (units (u nknown) date) unknown) (unknown) (no (unknown) (unknown) Intake performed (units (unknown) date) by: unknown) Abby Tate (unknown) (no (unknown) (unknown) Intake (units (unkno wn) date) unknown) (unknown) (no (unknown) (unknown) Intake- Clincial (units (unknown) date) Staff unknown) (unknown) (no (unknown) (unknown) Irritable bowel (units (unknown) date) syndrome () unknown) (unknown) (no (unknown) (unknown) [facility] (units (unknown) date) unknown) (unknown) (no (unknown) (unknown) Left ovarian (units (u nknown) date) cyst () unknown) (unknown) (no (unknown) (unknown) Loc: [facility] (units (unkno wn) date) unknown) (unknown) (no (unknown) (unknown) Loc: MRI (units (unkno wn) date) unknown) (unknown) (no (unknown) (unknown) [id number] (units (unk nown) date) unknown) (unknown) (no (unknown) (unknown) MR#: [id number] (units (unknown) date) unknown) (unknown) (no (unknown) (unknown) Magnetic (units (unkno wn) date) Resonance Report unknown) (unknown) (no (unknown) (unknown) Medical History (units (unknown) date) (Updated 01/31/22 unknown) @ 20:23 by Radha Toledo) (unknown) (no (unknown) (unknown) Medications (units (un known) date) unknown) (unknown) (no (unknown) (unknown) Medications: (units (u nknown) date) unknown) (unknown) (no (unknown) (unknown) Mental health (units ( unknown) date) problem unknown) (unknown) (no (unknown) (unknown) Migraines (units (unkn own) date) (-2003) unknown) (unknown) (no (unknown) (unknown) Mother Diabetes (units (unknown) date) mellitus unknown) (unknown) (no (unknown) (unknown) New (units (unkno wn) date) unknown) (unknown) (no (unknown) (unknown) No Known Drug (units ( unknown) date) Allergies Allergy unknown) (Verified 06/07/22 09:14) (unknown) (no (unknown) (unknown) Nodes and (units (unkn own) date) vessels:? No unknown) pelvic or inguinal adenopathy by size criteria.? Iliac (unknown) (no (unknown) (unknown) Ordering (units (unkno wn) date) Provider: unknown) Demi Otto MD (unknown) (no (unknown) (unknown) Orders (units (unkno wn) date) unknown) (unknown) (no (unknown) (unknown) Orders: (units (unkno wn) date) unknown) (unknown) (no (unknown) (unknown) PAP with hr HPV (units (unknown) date) 06/07/22 Z12.4 - unknown) Encounter for screening for malignant neoplasm (unknown) (no (unknown) (unknown) PFSH (units (unkno wn) date) unknown) (unknown) (no (unknown) (unknown) PROCEDURE:? MR (units (unknown) date) PELVIS WO/W CON unknown) (unknown) (no (unknown) (unknown) Painful (units (unkno wn) date) menstrual periods unknown) (unknown) (no (unknown) (unknown) Patient: (units (unkno wn) date) Clemente,Cory unknown) B MR#: (unknown) (no (unknown) (unknown) Patient: (units (unkno wn) date) Clemente,Cory unknown) B (unknown) (no (unknown) (unknown) Position Sitting (units (unknown) date) unknown) (unknown) (no (unknown) (unknown) Post-contrast (units (u nknown) date) axial or coronal unknown) VIBE/2-D FLASH with fat saturation from the iliac (unknown) (no (unknown) (unknown) Procedure: MR (units ( unknown) date) pelvis wo/w con unknown) (unknown) (no (unknown) (unknown) Reason For Visit (units (unknown) date) unknown) (unknown) (no (unknown) (unknown) Severe obesity (units (unknown) date) (BMI >= 40) unknown) (unknown) (no (unknown) (unknown) Shortness of (units (u nknown) date) breath unknown) (unknown) (no (unknown) (unknown) Signed By: (units (unk nown) date) unknown) (unknown) (no (unknown) (unknown) Signed (units (unkno wn) date) unknown) (unknown) (no (unknown) (unknown) Sleep apnea (units (un known) date) () unknown) (unknown) (no (unknown) (unknown) Smoking Status: (units (unknown) date) Never smoker unknown) (unknown) (no (unknown) (unknown) Social History (units (unknown) date) unknown) (unknown) (no (unknown) (unknown) Soft tissues:? (units (unknown) date) 4.0 cm ovoid unknown) region of intrinsic T1 hyperintensity present along (unknown) (no (unknown) (unknown) Status post (units (un known) date) right foot unknown) surgery () (unknown) (no (unknown) (unknown) Surgical History (units (unknown) date) (Updated 01/31/22 unknown) @ 20:23 by Radha Toledo) (unknown) (no (unknown) (unknown) TECHNIQUE:? (units (un known) date) unknown) (unknown) (no (unknown) (unknown) This note may (units ( unknown) date) have been all or unknown) partially generated using voice recognition (unknown) (no (unknown) (unknown) Tobacco + (units (unkn own) date) Substance Use unknown) (unknown) (no (unknown) (unknown) Tobacco Status (units (unknown) date) unknown) (unknown) (no (unknown) (unknown) Urinary system:? (units (unknown) date) Bladder wall is unknown) normal in thickness.? Distal ureters are non (unknown) (no (unknown) (unknown) Uterus:? Uterus (units (unknown) date) is normal in unknown) size.? Endometrium is normal in thickness. Arcuate (unknown) (no (unknown) (unknown) Visit Reasons: (units (unknown) date) IUD unknown) placement/nexplan on removal*NOAUTHREQ D (unknown) (no (unknown) (unknown) Vitals (units (unkno wn) date) unknown) (unknown) (no (unknown) (unknown) Weight 288 lb (units ( unknown) date) unknown) (unknown) (no (unknown) (unknown) [History (units (unkno wn) date) Confirmed unknown) 06/07/22] (unknown) (no (unknown) (unknown) abdominal/pelvic (units (unknown) date) wall associated unknown) with the lower rectus musculature.? This is a (unknown) (no (unknown) (unknown) are not (units (unkno wn) date) excludable.? unknown) (unknown) (no (unknown) (unknown) buprenorphine 8 (units (unknown) date) mg-naloxone 2 mg unknown) sublingual film (Suboxone) 1 film sublingual (unknown) (no (unknown) (unknown) bupropion HCl (units ( unknown) date) 300 mg 24 hr unknown) tablet, extended release 300 mg PO DAILY 01/03/22 (unknown) (no (unknown) (unknown) considered.? 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 (units (un known) date) unknown) (unknown) (no (unknown) (unknown) endometriosis (units (u nknown) date) elsewhere within unknown) the pelvis identified.? Other etiologies for this (unknown) (no (unknown) (unknown) endometriosis in (units (unknown) date) the absence of unknown) prior surgery is uncommon but possible.? No (unknown) (no (unknown) (unknown) evidence of (units (un known) date) unknown) (unknown) (no (unknown) (unknown) finding (units (unkno wn) date) unknown) (unknown) (no (unknown) (unknown) have occurred. (units (unknown) date) If there are any unknown) questions, please contact the Medical Records (unknown) (no (unknown) (unknown) image 23 and (units (u nknown) date) series 14, image unknown) 74). (unknown) (no (unknown) (unknown) last pap 1 year (units (unknown) date) hx abnormal unknown) (unknown) (no (unknown) (unknown) lesions.? (units (unkn own) date) unknown) (unknown) (no (unknown) (unknown) loops are normal (units (unknown) date) in caliber.? unknown) (unknown) (no (unknown) (unknown) may occur. (units (unk nown) date) Occasional unknown) wrong-word or 'sound-alike' substitutions may have (unknown) (no (unknown) (unknown) midline anterior (units (unknown) date) abdominal/pelvic unknown) wall / lower rectus musculature (for example (unknown) (no (unknown) (unknown) millimeters.? (units ( unknown) date) Multiple unknown) Nabothian cysts are present.? (unknown) (no (unknown) (unknown) nonspecific (units (un known) date) finding.? unknown) Correlation with any prior history of or other (unknown) (no (unknown) (unknown) norgestimate (units (u nknown) date) 0.25 mg-ethinyl unknown) estradiol 35 mcg tablet (Sprintec (28)) 1 tab PO (unknown) (no (unknown) (unknown) normal in size.? (units (unknown) date) unknown) (unknown) (no (unknown) (unknown) occurred due to (units (unknown) date) the inherent unknown) limitations of voice recognition software. Please (unknown) (no (unknown) (unknown) of cervix, (units (unk nown) date) Z86.19 - Personal unknown) history of other infectious and parasitic diseases (unknown) (no (unknown) (unknown) oxycodone 5 mg (units (unknown) date) PO Q12H PRN 5 unknown) tabs 0RF pain, severe (unknown) (no (unknown) (unknown) oxycodone 5 mg (units (unknown) date) tablet 5 mg PO unknown) Q12H PRN pain, severe #5 tabs 06/07/22 [Rx (unknown) (no (unknown) (unknown) performed.? (units (un known) date) unknown) (unknown) (no (unknown) (unknown) pt here for IUD (units (unknown) date) placement. unknown) (unknown) (no (unknown) (unknown) read the note (units ( unknown) date) carefully and unknown) recognize, using context, where these substitutions (unknown) (no (unknown) (unknown) relationship to (units (unknown) date) the patient's unknown) menstrual cycle, could also be helpful.? Abdominal (unknown) (no (unknown) (unknown) saturation (units (unk nown) date) unknown) (unknown) (no (unknown) (unknown) series 10, (units (unk nown) date) unknown) (unknown) (no (unknown) (unknown) small bowel (units (un known) date) unknown) (unknown) (no (unknown) (unknown) software. 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 (units (u nknown) date) Sagittal or axial unknown) dynamic VIBE during administration of contrast.? (unknown) (no (unknown) (unknown) the (units (unkno wn) date) unknown) (unknown) (no (unknown) (unknown) this area may be (units (unknown) date) helpful as if unknown) performed previously, scar endometriosis could be (unknown) (no (unknown) (unknown) through the (units (unk nown) date) pelvis.? Optional unknown) long- and short-axis uterine nonbreath-hold T2 FSE (unknown) (no (unknown) (unknown) through (units (unkno wn) date) unknown) (unknown) (no (unknown) (unknown) to the (units (unkno wn) date) symphysis.? unknown) Optional diffusion weighted imaging and ADC may be (unknown) (no (unknown) (unknown) trazodone 50 mg (units (unknown) date) tablet 50 mg PO unknown) BEDTIME PRN sleep 01/03/22 [History Confirmed (unknown) (no (unknown) (unknown) treatment of (units (u nknown) date) uterine unknown) adenomyosis, pelvic pain. (unknown) (no (unknown) (unknown) up to 14 (units (unkno wn) date) unknown) (unknown) (no (unknown) (unknown) uterus (units (unkno wn) date) unknown) (unknown) (no (unknown) (unknown) variant anatomy.? (units (unknown) date) Junctional zone unknown) is ill-defined and appears thickened measuring (unknown) (no (unknown) (unknown) vessels are (units (un known) date) unknown) (unknown) (no (unknown) (unknown) wall (units (unkno wn) date) unknown) Result panel 28 (unknown) (no (unknown) (unknown) (no value) (units (unk nown) date) unknown) (unknown) (no (unknown) (unknown) 09:14 (units (unkno wn) date) unknown) (unknown) (no (unknown) (unknown) 1. Uterine (units (unk nown) date) findings unknown) suggestive of adenomyosis. (unknown) (no (unknown) (unknown) 06/07/22 (units (unkno wn) date) unknown) (unknown) (no (unknown) (unknown) 06/07/22] (units (unkn own) date) unknown) (unknown) (no (unknown) (unknown) [address] [place] [address] (units (unknown) date) unknown) (unknown) (no (unknown) (unknown) 13 (units (unkno wn) date) unknown) (unknown) (no (unknown) (unknown) 2. Unremarkable (units (unknown) date) appearance of the unknown) ovaries. (unknown) (no (unknown) (unknown) 3. A 4 cm ovoid (units (unknown) date) region of unknown) abnormal signal is present at the anterior midline (unknown) (no (unknown) (unknown) 36 yo (units (unk nown) date) female presents unknown) for Mirena IUD placement for attempted conservative (unknown) (no (unknown) (unknown) ? (units (unkno wn) date) unknown) (unknown) (no (unknown) (unknown) ADHD (-1998) (units (u nknown) date) unknown) (unknown) (no (unknown) (unknown) Abdominal pain (units (unknown) date) unknown) (unknown) (no (unknown) (unknown) Abnormal Pap (units (u nknown) date) smear of cervix unknown) (unknown) (no (unknown) (unknown) Abnormal chest (units (unknown) date) xray () unknown) (unknown) (no (unknown) (unknown) Accession (units (unkn own) date) Number: unknown) [id number] ?? (unknown) (no (unknown) (unknown) Acct:[id number] (units (unknown) date) unknown) (unknown) (no (unknown) (unknown) Adnexa:? Both (units ( unknown) date) ovaries are unknown) normal in size, without suspicious cystic or solid (unknown) (no (unknown) (unknown) Age/Sex: 36 / F (units (unknown) date) Date of Service: unknown) (unknown) (no (unknown) (unknown) Age/Sex: 36 / F (units (unknown) date) unknown) (unknown) (no (unknown) (unknown) Allergies (units (unkn own) date) unknown) (unknown) (no (unknown) (unknown) [place], [place] (units ( unknown) date) [id number] unknown) (unknown) (no (unknown) (unknown) Anesthesia (units (unk nown) date) unknown) (unknown) (no (unknown) (unknown) Anxiety (units (unkno wn) date) unknown) (unknown) (no (unknown) (unknown) Assessment + (units (u nknown) date) Plan unknown) (unknown) (no (unknown) (unknown) Asthma (units (unkno wn) date) unknown) (unknown) (no (unknown) (unknown) Attending Dr: (units ( unknown) date) Demi Santos unknown) Fam RIVERA (unknown) (no (unknown) (unknown) BID 01/03/22 (units (u nknown) date) [History unknown) Confirmed 06/07/22] (unknown) (no (unknown) (unknown) BMI 46.5 (units (unkno wn) date) unknown) (unknown) (no (unknown) (unknown) BP 126/76 (units (unkn own) date) unknown) (unknown) (no (unknown) (unknown) Blood Pressure (units (unknown) date) Location Rt unknown) brachial (unknown) (no (unknown) (unknown) Bones:? Marrow (units (unknown) date) demonstrates unknown) normal overall signal.? (unknown) (no (unknown) (unknown) Bowel and (units (unkn own) date) peritoneum:? No unknown) pathologic free pelvic fluid.? Inferior colon and (unknown) (no (unknown) (unknown) COMPARISON:? (units (u nknown) date) None. unknown) (unknown) (no (unknown) (unknown) Carpal tunnel (units ( unknown) date) syndrome () unknown) (unknown) (no (unknown) (unknown) Cervical cancer (units (unknown) date) () unknown) (unknown) (no (unknown) (unknown) [id number]-Vhpqd-Lx (units (unknown) date) oth disease unknown) (unknown) (no (unknown) (unknown) Chief Complaint (units (unknown) date) unknown) (unknown) (no (unknown) (unknown) Chief Complaint: (units (unknown) date) Mirena IUD unknown) placement (unknown) (no (unknown) (unknown) Chlamydia (units (unkn own) date) () unknown) (unknown) (no (unknown) (unknown) Chronic insomnia (units (unknown) date) unknown) (unknown) (no (unknown) (unknown) Chronic low back (units (unknown) date) pain () unknown) (unknown) (no (unknown) (unknown) Chronic, (units (unkno wn) date) continuous use of unknown) opioids (unknown) (no (unknown) (unknown) Confirmed (units (unkn own) date) 06/07/22] unknown) (unknown) (no (unknown) (unknown) Coronal HASTE, (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 unknown) (unknown) (no (unknown) (unknown) Details: (units (unkno wn) date) unknown) (unknown) (no (unknown) (unknown) Diverticular (units (u nknown) date) disease () unknown) (unknown) (no (unknown) (unknown) Documented By: (units (unknown) date) Demi Otto unknown) Danielle RIVERA 06/07/22 09 (unknown) (no (unknown) (unknown) Draft (units (unkno wn) date) unknown) (unknown) (no (unknown) (unknown) FINDINGS:? (units (unk nown) date) unknown) (unknown) (no (unknown) (unknown) Family History (units (unknown) date) (Updated 01/31/22 unknown) @ 20:35 by Radha Toledo) (unknown) (no (unknown) (unknown) Father History (units (unknown) date) of heart disease unknown) (unknown) (no (unknown) (unknown) Fibromyalgia (units (u nknown) date) (-2015) unknown) (unknown) (no (unknown) (unknown) [facility]) (unknown) (no (unknown) (unknown) Gout (-2016) (units (u nknown) date) unknown) (unknown) (no (unknown) (unknown) Gynecology Visit (units (unknown) date) unknown) (unknown) (no (unknown) (unknown) H/O LEEP (units (unkno wn) date) unknown) (unknown) (no (unknown) (unknown) H/O laparoscopy (units (unknown) date) (-2009) unknown) (unknown) (no (unknown) (unknown) HPI (units (unkno wn) date) unknown) (unknown) (no (unknown) (unknown) Height 5 ft 6 in (units (unknown) date) unknown) (unknown) (no (unknown) (unknown) Herpes (-2019) (units (unknown) date) unknown) (unknown) (no (unknown) (unknown) History of (units (unk nown) date) unknown) (-08/08/04) (unknown) (no (unknown) (unknown) Human papilloma (units (unknown) date) virus (-2003) unknown) (unknown) (no (unknown) (unknown) Hyperlipidemia (units (unknown) date) unknown) (unknown) (no (unknown) (unknown) Hypertension (units (u nknown) date) unknown) (unknown) (no (unknown) (unknown) IMPRESSION:? (units (u nknown) date) unknown) (unknown) (no (unknown) (unknown) INDICATIONS:? (units ( unknown) date) pelvic cramping unknown) (unknown) (no (unknown) (unknown) Image quality:? (units (unknown) date) Adequate.? unknown) (unknown) (no (unknown) (unknown) Intake Note: (units (u nknown) date) unknown) (unknown) (no (unknown) (unknown) Intake performed (units (unknown) date) by: unknown) Abby Tate (unknown) (no (unknown) (unknown) Intake (units (unkno wn) date) unknown) (unknown) (no (unknown) (unknown) Intake- Clincial (units (unknown) date) Staff unknown) (unknown) (no (unknown) (unknown) Irritable bowel (units (unknown) date) syndrome () unknown) (unknown) (no (unknown) (unknown) [facility] (units (unknown) date) unknown) (unknown) (no (unknown) (unknown) Left ovarian (units (u nknown) date) cyst () unknown) (unknown) (no (unknown) (unknown) Loc: [facility] (units (unkno wn) date) unknown) (unknown) (no (unknown) (unknown) Loc: MRI (units (unkno wn) date) unknown) (unknown) (no (unknown) (unknown) [id number] (units (unk nown) date) unknown) (unknown) (no (unknown) (unknown) MR#: [id number] (units (unknown) date) unknown) (unknown) (no (unknown) (unknown) Magnetic (units (unkno wn) date) Resonance Report unknown) (unknown) (no (unknown) (unknown) Medical History (units (unknown) date) (Updated 01/31/22 unknown) @ 20:23 by Radha Toledo) (unknown) (no (unknown) (unknown) Medications (units (un known) date) unknown) (unknown) (no (unknown) (unknown) Medications: (units (u nknown) date) unknown) (unknown) (no (unknown) (unknown) Mental health (units ( unknown) date) problem unknown) (unknown) (no (unknown) (unknown) Migraines (units (unkn own) date) (-2003) unknown) (unknown) (no (unknown) (unknown) Mother Diabetes (units (unknown) date) mellitus unknown) (unknown) (no (unknown) (unknown) New (units (unkno wn) date) unknown) (unknown) (no (unknown) (unknown) No Known Drug (units ( unknown) date) Allergies Allergy unknown) (Verified 06/07/22 09:14) (unknown) (no (unknown) (unknown) Nodes and (units (unkn own) date) vessels:? No unknown) pelvic or inguinal adenopathy by size criteria.? Iliac (unknown) (no (unknown) (unknown) Ordering (units (unkno wn) date) Provider: unknown) Demi Otto MD (unknown) (no (unknown) (unknown) Orders (units (unkno wn) date) unknown) (unknown) (no (unknown) (unknown) Orders: (units (unkno wn) date) unknown) (unknown) (no (unknown) (unknown) PAP with hr HPV (units (unknown) date) 06/07/22 Z12.4 - unknown) Encounter for screening for malignant neoplasm (unknown) (no (unknown) (unknown) PFSH (units (unkno wn) date) unknown) (unknown) (no (unknown) (unknown) PROCEDURE:? MR (units (unknown) date) PELVIS WO/W CON unknown) (unknown) (no (unknown) (unknown) Painful (units (unkno wn) date) menstrual periods unknown) (unknown) (no (unknown) (unknown) Patient: (units (unkno wn) date) Cory Osborne unknown) B MR#: (unknown) (no (unknown) (unknown) Patient: (units (unkno wn) date) Cory Osborne unknown) B (unknown) (no (unknown) (unknown) Position Sitting (units (unknown) date) unknown) (unknown) (no (unknown) (unknown) Post-contrast (units (u nknown) date) axial or coronal unknown) VIBE/2-D FLASH with fat saturation from the iliac (unknown) (no (unknown) (unknown) Procedure: MR (units ( unknown) date) pelvis wo/w con unknown) (unknown) (no (unknown) (unknown) Reason For Visit (units (unknown) date) unknown) (unknown) (no (unknown) (unknown) Severe obesity (units (unknown) date) (BMI >= 40) unknown) (unknown) (no (unknown) (unknown) Shortness of (units (u nknown) date) breath unknown) (unknown) (no (unknown) (unknown) Signed By: (units (unk nown) date) unknown) (unknown) (no (unknown) (unknown) Signed (units (unkno wn) date) unknown) (unknown) (no (unknown) (unknown) Sleep apnea (units (un known) date) () unknown) (unknown) (no (unknown) (unknown) Smoking Status: (units (unknown) date) Never smoker unknown) (unknown) (no (unknown) (unknown) Social History (units (unknown) date) unknown) (unknown) (no (unknown) (unknown) Soft tissues:? (units (unknown) date) 4.0 cm ovoid unknown) region of intrinsic T1 hyperintensity present along (unknown) (no (unknown) (unknown) Status post (units (un known) date) right foot unknown) surgery (-2000) (unknown) (no (unknown) (unknown) Surgical History (units (unknown) date) (Updated 01/31/22 unknown) @ 20:23 by Radha Toledo) (unknown) (no (unknown) (unknown) TECHNIQUE:? (units (un known) date) unknown) (unknown) (no (unknown) (unknown) This note may (units ( unknown) date) have been all or unknown) partially generated using voice recognition (unknown) (no (unknown) (unknown) Tobacco + (units (unkn own) date) Substance Use unknown) (unknown) (no (unknown) (unknown) Tobacco Status (units (unknown) date) unknown) (unknown) (no (unknown) (unknown) Urinary system:? (units (unknown) date) Bladder wall is unknown) normal in thickness.? Distal ureters are non (unknown) (no (unknown) (unknown) Uterus:? Uterus (units (unknown) date) is normal in unknown) size.? Endometrium is normal in thickness. Arcuate (unknown) (no (unknown) (unknown) Visit Reasons: (units (unknown) date) IUD unknown) placement/nexplan on removal*NOAUTHREQ D (unknown) (no (unknown) (unknown) Vitals (units (unkno wn) date) unknown) (unknown) (no (unknown) (unknown) Weight 288 lb (units ( unknown) date) unknown) (unknown) (no (unknown) (unknown) [History (units (unkno wn) date) Confirmed unknown) 06/07/22] (unknown) (no (unknown) (unknown) abdominal/pelvic (units (unknown) date) wall associated unknown) with the lower rectus musculature.? This is a (unknown) (no (unknown) (unknown) are not (units (unkno wn) date) excludable.? unknown) (unknown) (no (unknown) (unknown) buprenorphine 8 (units (unknown) date) mg-naloxone 2 mg unknown) sublingual film (Suboxone) 1 film sublingual (unknown) (no (unknown) (unknown) bupropion HCl (units ( unknown) date) 300 mg 24 hr unknown) tablet, extended release 300 mg PO DAILY 01/03/22 (unknown) (no (unknown) (unknown) considered.? 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 (units (un known) date) unknown) (unknown) (no (unknown) (unknown) endometriosis (units (u nknown) date) elsewhere within unknown) the pelvis identified.? Other etiologies for this (unknown) (no (unknown) (unknown) endometriosis in (units (unknown) date) the absence of unknown) prior surgery is uncommon but possible.? No (unknown) (no (unknown) (unknown) evidence of (units (un known) date) unknown) (unknown) (no (unknown) (unknown) finding (units (unkno wn) date) unknown) (unknown) (no (unknown) (unknown) have occurred. (units (unknown) date) If there are any unknown) questions, please contact the Medical Records (unknown) (no (unknown) (unknown) image 23 and (units (u nknown) date) series 14, image unknown) 74). (unknown) (no (unknown) (unknown) last pap 1 year (units (unknown) date) hx abnormal unknown) (unknown) (no (unknown) (unknown) lesions.? (units (unkn own) date) unknown) (unknown) (no (unknown) (unknown) loops are normal (units (unknown) date) in caliber.? unknown) (unknown) (no (unknown) (unknown) may occur. (units (unk nown) date) Occasional unknown) wrong-word or 'sound-alike' substitutions may have (unknown) (no (unknown) (unknown) midline anterior (units (unknown) date) abdominal/pelvic unknown) wall / lower rectus musculature (for example (unknown) (no (unknown) (unknown) millimeters.? (units ( unknown) date) Multiple unknown) Nabothian cysts are present.? (unknown) (no (unknown) (unknown) nonspecific (units (un known) date) finding.? unknown) Correlation with any prior history of or other (unknown) (no (unknown) (unknown) norgestimate (units (u nknown) date) 0.25 mg-ethinyl unknown) estradiol 35 mcg tablet (Sprintec (28)) 1 tab PO (unknown) (no (unknown) (unknown) normal in size.? (units (unknown) date) unknown) (unknown) (no (unknown) (unknown) occurred due to (units (unknown) date) the inherent unknown) limitations of voice recognition software. Please (unknown) (no (unknown) (unknown) of cervix, (units (unk nown) date) Z86.19 - Personal unknown) history of other infectious and parasitic diseases (unknown) (no (unknown) (unknown) oxycodone 5 mg (units (unknown) date) PO Q12H PRN 5 unknown) tabs 0RF pain, severe (unknown) (no (unknown) (unknown) oxycodone 5 mg (units (unknown) date) tablet 5 mg PO unknown) Q12H PRN pain, severe #5 tabs 06/07/22 [Rx (unknown) (no (unknown) (unknown) performed.? (units (un known) date) unknown) (unknown) (no (unknown) (unknown) pt here for IUD (units (unknown) date) placement. unknown) (unknown) (no (unknown) (unknown) read the note (units ( unknown) date) carefully and unknown) recognize, using context, where these substitutions (unknown) (no (unknown) (unknown) relationship to (units (unknown) date) the patient's unknown) menstrual cycle, could also be helpful.? Abdominal (unknown) (no (unknown) (unknown) saturation (units (unk nown) date) unknown) (unknown) (no (unknown) (unknown) series 10, (units (unk nown) date) unknown) (unknown) (no (unknown) (unknown) small bowel (units (un known) date) unknown) (unknown) (no (unknown) (unknown) software. 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 (units (u nknown) date) Sagittal or axial unknown) dynamic VIBE during administration of contrast.? (unknown) (no (unknown) (unknown) the (units (unkno wn) date) unknown) (unknown) (no (unknown) (unknown) this area may be (units (unknown) date) helpful as if unknown) performed previously, scar endometriosis could be (unknown) (no (unknown) (unknown) through the (units (unk nown) date) pelvis.? Optional unknown) long- and short-axis uterine nonbreath-hold T2 FSE (unknown) (no (unknown) (unknown) through (units (unkno wn) date) unknown) (unknown) (no (unknown) (unknown) to the (units (unkno wn) date) symphysis.? unknown) Optional diffusion weighted imaging and ADC may be (unknown) (no (unknown) (unknown) trazodone 50 mg (units (unknown) date) tablet 50 mg PO unknown) BEDTIME PRN sleep 01/03/22 [History Confirmed (unknown) (no (unknown) (unknown) treatment of (units (u nknown) date) uterine unknown) adenomyosis, pelvic pain. (unknown) (no (unknown) (unknown) up to 14 (units (unkno wn) date) unknown) (unknown) (no (unknown) (unknown) uterus (units (unkno wn) date) unknown) (unknown) (no (unknown) (unknown) variant anatomy.? (units (unknown) date) Junctional zone unknown) is ill-defined and appears thickened measuring (unknown) (no (unknown) (unknown) vessels are (units (un known) date) unknown) (unknown) (no (unknown) (unknown) wall (units (unkno wn) date) unknown) Result panel 29 (unknown) (no (unknown) (unknown) (no value) (units (unk nown) date) unknown) (unknown) (no (unknown) (unknown) 09:14 (units (unkno wn) date) unknown) (unknown) (no (unknown) (unknown) 1. Uterine (units (unk nown) date) findings unknown) suggestive of adenomyosis. (unknown) (no (unknown) (unknown) 06/07/22 (units (unkno wn) date) unknown) (unknown) (no (unknown) (unknown) 06/07/22] (units (unkn own) date) unknown) (unknown) (no (unknown) (unknown) 13 (units (unkno wn) date) unknown) (unknown) (no (unknown) (unknown) 2. Unremarkable (units (unknown) date) appearance of the unknown) ovaries. (unknown) (no (unknown) (unknown) 3. A 4 cm ovoid (units (unknown) date) region of unknown) abnormal signal is present at the anterior midline (unknown) (no (unknown) (unknown) 36 yo (units (unk nown) date) female presents unknown) for Mirena IUD placement for attempted conservative (unknown) (no (unknown) (unknown) ? (units (unkno wn) date) unknown) (unknown) (no (unknown) (unknown) ADHD (-1998) (units (u nknown) date) unknown) (unknown) (no (unknown) (unknown) Abdominal pain (units (unknown) date) unknown) (unknown) (no (unknown) (unknown) Abnormal Pap (units (u nknown) date) smear of cervix unknown) (unknown) (no (unknown) (unknown) Abnormal chest (units (unknown) date) xray () unknown) (unknown) (no (unknown) (unknown) Acct:[id number] (units (unknown) date) unknown) (unknown) (no (unknown) (unknown) Adnexa:? Both (units ( unknown) date) ovaries are unknown) normal in size, without suspicious cystic or solid (unknown) (no (unknown) (unknown) Age/Sex: 36 / F (units (unknown) date) Date of Service: unknown) (unknown) (no (unknown) (unknown) Age/Sex: 36 / F (units (unknown) date) unknown) (unknown) (no (unknown) (unknown) Allergies (units (unkn own) date) unknown) (unknown) (no (unknown) (unknown) [place], [place] (units ( unknown) date) [address] unknown) (unknown) (no (unknown) (unknown) Anesthesia (units (unk nown) date) unknown) (unknown) (no (unknown) (unknown) Anxiety (units (unkno wn) date) unknown) (unknown) (no (unknown) (unknown) Assessment + (units (u nknown) date) Plan unknown) (unknown) (no (unknown) (unknown) Asthma (units (unkno wn) date) unknown) (unknown) (no (unknown) (unknown) Attending Dr: (units ( unknown) date) Demi Santos unknown) Fam RIVERA (unknown) (no (unknown) (unknown) BID 01/03/22 (units (u nknown) date) [History unknown) Confirmed 06/07/22] (unknown) (no (unknown) (unknown) BMI 46.5 (units (unkno wn) date) unknown) (unknown) (no (unknown) (unknown) BP 126/76 (units (unkn own) date) unknown) (unknown) (no (unknown) (unknown) Blood Pressure (units (unknown) date) Location Rt unknown) brachial (unknown) (no (unknown) (unknown) Bones:? Marrow (units (unknown) date) demonstrates unknown) normal overall signal.? (unknown) (no (unknown) (unknown) Bowel and (units (unkn own) date) peritoneum:? No unknown) pathologic free pelvic fluid.? Inferior colon and (unknown) (no (unknown) (unknown) COMPARISON:? (units (u nknown) date) None. unknown) (unknown) (no (unknown) (unknown) Carpal tunnel (units ( unknown) date) syndrome () unknown) (unknown) (no (unknown) (unknown) Cervical cancer (units (unknown) date) () unknown) (unknown) (no (unknown) (unknown) Uwtchxu-Mqlgc-Iu (units (unknown) date) oth disease unknown) (unknown) (no (unknown) (unknown) Chief Complaint (units (unknown) date) unknown) (unknown) (no (unknown) (unknown) Chief Complaint: (units (unknown) date) Mirena IUD unknown) placement (unknown) (no (unknown) (unknown) Chlamydia (units (unkn own) date) () unknown) (unknown) (no (unknown) (unknown) Chronic insomnia (units (unknown) date) unknown) (unknown) (no (unknown) (unknown) Chronic low back (units (unknown) date) pain () unknown) (unknown) (no (unknown) (unknown) Chronic, (units (unkno wn) date) continuous use of unknown) opioids (unknown) (no (unknown) (unknown) Confirmed (units (unkn own) date) 06/07/22] unknown) (unknown) (no (unknown) (unknown) Coronal HASTE, (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 unknown) (unknown) (no (unknown) (unknown) Details: (units (unkno wn) date) unknown) (unknown) (no (unknown) (unknown) Diverticular (units (u nknown) date) disease () unknown) (unknown) (no (unknown) (unknown) Documented By: (units (unknown) date) Demi Otto unknown) Danielle RIVERA 06/07/22 09 (unknown) (no (unknown) (unknown) Draft (units (unkno wn) date) unknown) (unknown) (no (unknown) (unknown) FINDINGS:? (units (unk nown) date) unknown) (unknown) (no (unknown) (unknown) Family History (units (unknown) date) (Updated 01/31/22 unknown) @ 20:35 by Radha Toledo) (unknown) (no (unknown) (unknown) Father History (units (unknown) date) of heart disease unknown) (unknown) (no (unknown) (unknown) Fibromyalgia (units (u nknown) date) (-2016) unknown) (unknown) (no (unknown) (unknown) [facility]) (unknown) (no (unknown) (unknown) Gout (-2016) (units (u nknown) date) unknown) (unknown) (no (unknown) (unknown) Gynecology Visit (units (unknown) date) unknown) (unknown) (no (unknown) (unknown) H/O LEEP (units (unkno wn) date) unknown) (unknown) (no (unknown) (unknown) H/O laparoscopy (units (unknown) date) () unknown) (unknown) (no (unknown) (unknown) HPI (units (unkno wn) date) unknown) (unknown) (no (unknown) (unknown) Height 5 ft 6 in (units (unknown) date) unknown) (unknown) (no (unknown) (unknown) Herpes () (units (unknown) date) unknown) (unknown) (no (unknown) (unknown) History of (units (unk nown) date) unknown) (-08/08/04) (unknown) (no (unknown) (unknown) Human papilloma (units (unknown) date) virus () unknown) (unknown) (no (unknown) (unknown) Hyperlipidemia (units (unknown) date) unknown) (unknown) (no (unknown) (unknown) Hypertension (units (u nknown) date) unknown) (unknown) (no (unknown) (unknown) IMPRESSION:? (units (u nknown) date) unknown) (unknown) (no (unknown) (unknown) INDICATIONS:? (units ( unknown) date) pelvic cramping unknown) (unknown) (no (unknown) (unknown) Image quality:? (units (unknown) date) Adequate.? unknown) (unknown) (no (unknown) (unknown) Intake Note: (units (u nknown) date) unknown) (unknown) (no (unknown) (unknown) Intake performed (units (unknown) date) by: unknown) Abby Tate (unknown) (no (unknown) (unknown) Intake (units (unkno wn) date) unknown) (unknown) (no (unknown) (unknown) Intake- Clincial (units (unknown) date) Staff unknown) (unknown) (no (unknown) (unknown) Irritable bowel (units (unknown) date) syndrome () unknown) (unknown) (no (unknown) (unknown) Left ovarian (units (u nknown) date) cyst () unknown) (unknown) (no (unknown) (unknown) Loc: [facility] (units (unkno wn) date) unknown) (unknown) (no (unknown) (unknown) Loc: MRI (units (unkno wn) date) unknown) (unknown) (no (unknown) (unknown) [id number] (units (unk nown) date) unknown) (unknown) (no (unknown) (unknown) MR#: [id number] (units (unknown) date) unknown) (unknown) (no (unknown) (unknown) Medical History (units (unknown) date) (Updated 01/31/22 unknown) @ 20:23 by Radha Toledo) (unknown) (no (unknown) (unknown) Medications (units (un known) date) unknown) (unknown) (no (unknown) (unknown) Medications: (units (u nknown) date) unknown) (unknown) (no (unknown) (unknown) Mental health (units ( unknown) date) problem unknown) (unknown) (no (unknown) (unknown) Migraines (units (unkn own) date) (-2003) unknown) (unknown) (no (unknown) (unknown) Mother Diabetes (units (unknown) date) mellitus unknown) (unknown) (no (unknown) (unknown) New (units (unkno wn) date) unknown) (unknown) (no (unknown) (unknown) No Known Drug (units ( unknown) date) Allergies Allergy unknown) (Verified 06/07/22 09:14) (unknown) (no (unknown) (unknown) Nodes and (units (unkn own) date) vessels:? No unknown) pelvic or inguinal adenopathy by size criteria.? Iliac (unknown) (no (unknown) (unknown) Number: (units (unkno wn) date) [id number] ?? unknown) (unknown) (no (unknown) (unknown) Ordering (units (unkno wn) date) Provider: unknown) Demi Otto MD (unknown) (no (unknown) (unknown) Orders (units (unkno wn) date) unknown) (unknown) (no (unknown) (unknown) Orders: (units (unkno wn) date) unknown) (unknown) (no (unknown) (unknown) PAP with hr HPV (units (unknown) date) 06/07/22 Z12.4 - unknown) Encounter for screening for malignant neoplasm (unknown) (no (unknown) (unknown) PFSH (units (unkno wn) date) unknown) (unknown) (no (unknown) (unknown) PROCEDURE:? MR (units (unknown) date) PELVIS WO/W CON unknown) (unknown) (no (unknown) (unknown) Painful (units (unkno wn) date) menstrual periods unknown) (unknown) (no (unknown) (unknown) Patient: (units (unkno wn) date) Clemente,Cory unknown) B MR#: (unknown) (no (unknown) (unknown) Patient: (units (unkno wn) date) Clemente,Cory unknown) B (unknown) (no (unknown) (unknown) Position Sitting (units (unknown) date) unknown) (unknown) (no (unknown) (unknown) Post-contrast (units (u nknown) date) axial or coronal unknown) VIBE/2-D FLASH with fat saturation from the iliac (unknown) (no (unknown) (unknown) Procedure: MR (units ( unknown) date) pelvis wo/w con unknown) (unknown) (no (unknown) (unknown) Reason For Visit (units (unknown) date) unknown) (unknown) (no (unknown) (unknown) Severe obesity (units (unknown) date) (BMI >= 40) unknown) (unknown) (no (unknown) (unknown) Shortness of (units (u nknown) date) breath unknown) (unknown) (no (unknown) (unknown) Signed By: (units (unk nown) date) unknown) (unknown) (no (unknown) (unknown) Sleep apnea (units (un known) date) () unknown) (unknown) (no (unknown) (unknown) Smoking Status: (units (unknown) date) Never smoker unknown) (unknown) (no (unknown) (unknown) Social History (units (unknown) date) unknown) (unknown) (no (unknown) (unknown) Soft tissues:? (units (unknown) date) 4.0 cm ovoid unknown) region of intrinsic T1 hyperintensity present along (unknown) (no (unknown) (unknown) Status post (units (un known) date) right foot unknown) surgery (-2000) (unknown) (no (unknown) (unknown) Surgical History (units (unknown) date) (Updated 01/31/22 unknown) @ 20:23 by Radha Toledo) (unknown) (no (unknown) (unknown) TECHNIQUE:? (units (un known) date) unknown) (unknown) (no (unknown) (unknown) This note may (units ( unknown) date) have been all or unknown) partially generated using voice recognition (unknown) (no (unknown) (unknown) Tobacco + (units (unkn own) date) Substance Use unknown) (unknown) (no (unknown) (unknown) Tobacco Status (units (unknown) date) unknown) (unknown) (no (unknown) (unknown) Urinary system:? (units (unknown) date) Bladder wall is unknown) normal in thickness.? Distal ureters are non (unknown) (no (unknown) (unknown) Uterus:? Uterus (units (unknown) date) is normal in unknown) size.? Endometrium is normal in thickness. Arcuate (unknown) (no (unknown) (unknown) Visit Reasons: (units (unknown) date) IUD unknown) placement/nexplan on removal*NOAUTHREQ D (unknown) (no (unknown) (unknown) Vitals (units (unkno wn) date) unknown) (unknown) (no (unknown) (unknown) Weight 288 lb (units ( unknown) date) unknown) (unknown) (no (unknown) (unknown) [History (units (unkno wn) date) Confirmed unknown) 06/07/22] (unknown) (no (unknown) (unknown) abdominal/pelvic (units (unknown) date) wall associated unknown) with the lower rectus musculature.? This is a (unknown) (no (unknown) (unknown) are not (units (unkno wn) date) excludable.? unknown) (unknown) (no (unknown) (unknown) buprenorphine 8 (units (unknown) date) mg-naloxone 2 mg unknown) sublingual film (Suboxone) 1 film sublingual (unknown) (no (unknown) (unknown) bupropion HCl (units ( unknown) date) 300 mg 24 hr unknown) tablet, extended release 300 mg PO DAILY 01/03/22 (unknown) (no (unknown) (unknown) considered.? 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 (units (un known) date) unknown) (unknown) (no (unknown) (unknown) endometriosis (units (u nknown) date) elsewhere within unknown) the pelvis identified.? Other etiologies for this (unknown) (no (unknown) (unknown) endometriosis in (units (unknown) date) the absence of unknown) prior surgery is uncommon but possible.? No (unknown) (no (unknown) (unknown) evidence of (units (un known) date) unknown) (unknown) (no (unknown) (unknown) finding (units (unkno wn) date) unknown) (unknown) (no (unknown) (unknown) have occurred. (units (unknown) date) If there are any unknown) questions, please contact the Medical Records (unknown) (no (unknown) (unknown) image 23 and (units (u nknown) date) series 14, image unknown) 74). (unknown) (no (unknown) (unknown) last pap 1 year (units (unknown) date) hx abnormal unknown) (unknown) (no (unknown) (unknown) lesions.? (units (unkn own) date) unknown) (unknown) (no (unknown) (unknown) loops are normal (units (unknown) date) in caliber.? unknown) (unknown) (no (unknown) (unknown) may occur. (units (unk nown) date) Occasional unknown) wrong-word or 'sound-alike' substitutions may have (unknown) (no (unknown) (unknown) midline anterior (units (unknown) date) abdominal/pelvic unknown) wall / lower rectus musculature (for example (unknown) (no (unknown) (unknown) millimeters.? (units ( unknown) date) Multiple unknown) Nabothian cysts are present.? (unknown) (no (unknown) (unknown) nonspecific (units (un known) date) finding.? unknown) Correlation with any prior history of or other (unknown) (no (unknown) (unknown) norgestimate (units (u nknown) date) 0.25 mg-ethinyl unknown) estradiol 35 mcg tablet (Sprintec (28)) 1 tab PO (unknown) (no (unknown) (unknown) normal in size.? (units (unknown) date) unknown) (unknown) (no (unknown) (unknown) occurred due to (units (unknown) date) the inherent unknown) limitations of voice recognition software. Please (unknown) (no (unknown) (unknown) of cervix, (units (unk nown) date) Z86.19 - Personal unknown) history of other infectious and parasitic diseases (unknown) (no (unknown) (unknown) oxycodone 5 mg (units (unknown) date) PO Q12H PRN 5 unknown) tabs 0RF pain, severe (unknown) (no (unknown) (unknown) oxycodone 5 mg (units (unknown) date) tablet 5 mg PO unknown) Q12H PRN pain, severe #5 tabs 06/07/22 [Rx (unknown) (no (unknown) (unknown) performed.? (units (un known) date) unknown) (unknown) (no (unknown) (unknown) pt here for IUD (units (unknown) date) placement. unknown) (unknown) (no (unknown) (unknown) read the note (units ( unknown) date) carefully and unknown) recognize, using context, where these substitutions (unknown) (no (unknown) (unknown) relationship to (units (unknown) date) the patient's unknown) menstrual cycle, could also be helpful.? Abdominal (unknown) (no (unknown) (unknown) saturation (units (unk nown) date) unknown) (unknown) (no (unknown) (unknown) series 10, (units (unk nown) date) unknown) (unknown) (no (unknown) (unknown) small bowel (units (un known) date) unknown) (unknown) (no (unknown) (unknown) software. 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 (units (u nknown) date) Sagittal or axial unknown) dynamic VIBE during administration of contrast.? (unknown) (no (unknown) (unknown) the (units (unkno wn) date) unknown) (unknown) (no (unknown) (unknown) this area may be (units (unknown) date) helpful as if unknown) performed previously, scar endometriosis could be (unknown) (no (unknown) (unknown) through the (units (unk nown) date) pelvis.? Optional unknown) long- and short-axis uterine nonbreath-hold T2 FSE (unknown) (no (unknown) (unknown) through (units (unkno wn) date) unknown) (unknown) (no (unknown) (unknown) to the (units (unkno wn) date) symphysis.? unknown) Optional diffusion weighted imaging and ADC may be (unknown) (no (unknown) (unknown) trazodone 50 mg (units (unknown) date) tablet 50 mg PO unknown) BEDTIME PRN sleep 01/03/22 [History Confirmed (unknown) (no (unknown) (unknown) treatment of (units (u nknown) date) uterine unknown) adenomyosis, pelvic pain. (unknown) (no (unknown) (unknown) up to 14 (units (unkno wn) date) unknown) (unknown) (no (unknown) (unknown) uterus (units (unkno wn) date) unknown) (unknown) (no (unknown) (unknown) variant anatomy.? (units (unknown) date) Junctional zone unknown) is ill-defined and appears thickened measuring (unknown) (no (unknown) (unknown) vessels are (units (un known) date) unknown) (unknown) (no (unknown) (unknown) wall (units (unkno wn) date) unknown) Result panel 30 (unknown) (no (unknown) (unknown) (no value) (units (unk nown) date) unknown) (unknown) (no (unknown) (unknown) 09:14 (units (unkno wn) date) unknown) (unknown) (no (unknown) (unknown) 1. Uterine (units (unk nown) date) findings unknown) suggestive of adenomyosis. (unknown) (no (unknown) (unknown) 06/07/22 (units (unkno wn) date) unknown) (unknown) (no (unknown) (unknown) 06/07/22] (units (unkn own) date) unknown) (unknown) (no (unknown) (unknown) 13 (units (unkno wn) date) unknown) (unknown) (no (unknown) (unknown) 2. Unremarkable (units (unknown) date) appearance of the unknown) ovaries. (unknown) (no (unknown) (unknown) 3. A 4 cm ovoid (units (unknown) date) region of unknown) abnormal signal is present at the anterior midline (unknown) (no (unknown) (unknown) 36 yo (units (unk nown) date) female presents unknown) for Mirena IUD placement for attempted conservative (unknown) (no (unknown) (unknown) ? (units (unkno wn) date) unknown) (unknown) (no (unknown) (unknown) ADHD (-1998) (units (u nknown) date) unknown) (unknown) (no (unknown) (unknown) Abdominal pain (units (unknown) date) unknown) (unknown) (no (unknown) (unknown) Abnormal Pap (units (u nknown) date) smear of cervix unknown) (unknown) (no (unknown) (unknown) Abnormal chest (units (unknown) date) xray (-2014) unknown) (unknown) (no (unknown) (unknown) Acct:[id number] (units (unknown) date) unknown) (unknown) (no (unknown) (unknown) Adnexa:? Both (units ( unknown) date) ovaries are unknown) normal in size, without suspicious cystic or solid (unknown) (no (unknown) (unknown) Age/Sex: 36 / F (units (unknown) date) Date of Service: unknown) (unknown) (no (unknown) (unknown) Age/Sex: 36 / F (units (unknown) date) unknown) (unknown) (no (unknown) (unknown) Allergies (units (unkn own) date) unknown) (unknown) (no (unknown) (unknown) [place], [place] (units ( unknown) date) [id number] unknown) (unknown) (no (unknown) (unknown) Anesthesia (units (unk nown) date) unknown) (unknown) (no (unknown) (unknown) Anxiety (units (unkno wn) date) unknown) (unknown) (no (unknown) (unknown) Assessment + (units (u nknown) date) Plan unknown) (unknown) (no (unknown) (unknown) Asthma (units (unkno wn) date) unknown) (unknown) (no (unknown) (unknown) Attending Dr: (units ( unknown) date) Demi Santos unknown) Fam RIVERA (unknown) (no (unknown) (unknown) BID 01/03/22 (units (u nknown) date) [History unknown) Confirmed 06/07/22] (unknown) (no (unknown) (unknown) BMI 46.5 (units (unkno wn) date) unknown) (unknown) (no (unknown) (unknown) BP 126/76 (units (unkn own) date) unknown) (unknown) (no (unknown) (unknown) Blood Pressure (units (unknown) date) Location Rt unknown) brachial (unknown) (no (unknown) (unknown) Bones:? Marrow (units (unknown) date) demonstrates unknown) normal overall signal.? (unknown) (no (unknown) (unknown) Bowel and (units (unkn own) date) peritoneum:? No unknown) pathologic free pelvic fluid.? Inferior colon and (unknown) (no (unknown) (unknown) COMPARISON:? (units (u nknown) date) None. unknown) (unknown) (no (unknown) (unknown) Carpal tunnel (units ( unknown) date) syndrome () unknown) (unknown) (no (unknown) (unknown) Cervical cancer (units (unknown) date) (-2002) unknown) (unknown) (no (unknown) (unknown) Cmaobhd-Xtiio-Tz (units (unknown) date) oth disease unknown) (unknown) (no (unknown) (unknown) Chief Complaint (units (unknown) date) unknown) (unknown) (no (unknown) (unknown) Chief Complaint: (units (unknown) date) Mirena IUD unknown) placement (unknown) (no (unknown) (unknown) Chlamydia (units (unkn own) date) () unknown) (unknown) (no (unknown) (unknown) Chronic insomnia (units (unknown) date) unknown) (unknown) (no (unknown) (unknown) Chronic low back (units (unknown) date) pain () unknown) (unknown) (no (unknown) (unknown) Chronic, (units (unkno wn) date) continuous use of unknown) opioids (unknown) (no (unknown) (unknown) Confirmed (units (unkn own) date) 06/07/22] unknown) (unknown) (no (unknown) (unknown) Coronal HASTE, (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 unknown) (unknown) (no (unknown) (unknown) Details: (units (unkno wn) date) unknown) (unknown) (no (unknown) (unknown) Diverticular (units (u nknown) date) disease () unknown) (unknown) (no (unknown) (unknown) Documented By: (units (unknown) date) Demi Otto unknown) Danielle RIVERA 06/07/22 09 (unknown) (no (unknown) (unknown) Draft (units (unkno wn) date) unknown) (unknown) (no (unknown) (unknown) FINDINGS:? (units (unk nown) date) unknown) (unknown) (no (unknown) (unknown) Family History (units (unknown) date) (Updated 01/31/22 unknown) @ 20:35 by Radha Toledo) (unknown) (no (unknown) (unknown) Father History (units (unknown) date) of heart disease unknown) (unknown) (no (unknown) (unknown) Fibromyalgia (units (u nknown) date) () unknown) (unknown) (no (unknown) (unknown) [facility]) (unknown) (no (unknown) (unknown) Gout () (units (u nknown) date) unknown) (unknown) (no (unknown) (unknown) Gynecology Visit (units (unknown) date) unknown) (unknown) (no (unknown) (unknown) H/O LEEP (units (unkno wn) date) unknown) (unknown) (no (unknown) (unknown) H/O laparoscopy (units (unknown) date) () unknown) (unknown) (no (unknown) (unknown) HPI (units (unkno wn) date) unknown) (unknown) (no (unknown) (unknown) Height 5 ft 6 in (units (unknown) date) unknown) (unknown) (no (unknown) (unknown) Herpes () (units (unknown) date) unknown) (unknown) (no (unknown) (unknown) History of (units (unk nown) date) unknown) (-08/08/04) (unknown) (no (unknown) (unknown) Human papilloma (units (unknown) date) virus () unknown) (unknown) (no (unknown) (unknown) Hyperlipidemia (units (unknown) date) unknown) (unknown) (no (unknown) (unknown) Hypertension (units (u nknown) date) unknown) (unknown) (no (unknown) (unknown) IMPRESSION:? (units (u nknown) date) unknown) (unknown) (no (unknown) (unknown) INDICATIONS:? (units ( unknown) date) pelvic cramping unknown) (unknown) (no (unknown) (unknown) Image quality:? (units (unknown) date) Adequate.? unknown) (unknown) (no (unknown) (unknown) Intake Note: (units (u nknown) date) unknown) (unknown) (no (unknown) (unknown) Intake performed (units (unknown) date) by: unknown) Abby Tate (unknown) (no (unknown) (unknown) Intake (units (unkno wn) date) unknown) (unknown) (no (unknown) (unknown) Intake- Clincial (units (unknown) date) Staff unknown) (unknown) (no (unknown) (unknown) Irritable bowel (units (unknown) date) syndrome (-2008) unknown) (unknown) (no (unknown) (unknown) Left ovarian (units (u nknown) date) cyst () unknown) (unknown) (no (unknown) (unknown) Loc: [facility] (units (unkno wn) date) unknown) (unknown) (no (unknown) (unknown) Loc: MRI (units (unkno wn) date) unknown) (unknown) (no (unknown) (unknown) [id number] (units (unk nown) date) unknown) (unknown) (no (unknown) (unknown) MR#: [id number] (units (unknown) date) unknown) (unknown) (no (unknown) (unknown) Medical History (units (unknown) date) (Updated 01/31/22 unknown) @ 20:23 by Radha Toledo) (unknown) (no (unknown) (unknown) Medications (units (un known) date) unknown) (unknown) (no (unknown) (unknown) Medications: (units (u nknown) date) unknown) (unknown) (no (unknown) (unknown) Mental health (units ( unknown) date) problem unknown) (unknown) (no (unknown) (unknown) Migraines (units (unkn own) date) () unknown) (unknown) (no (unknown) (unknown) Mother Diabetes (units (unknown) date) mellitus unknown) (unknown) (no (unknown) (unknown) New (units (unkno wn) date) unknown) (unknown) (no (unknown) (unknown) No Known Drug (units ( unknown) date) Allergies Allergy unknown) (Verified 06/07/22 09:14) (unknown) (no (unknown) (unknown) Nodes and (units (unkn own) date) vessels:? No unknown) pelvic or inguinal adenopathy by size criteria.? Iliac (unknown) (no (unknown) (unknown) Number: (units (unkno wn) date) [id number] ?? unknown) (unknown) (no (unknown) (unknown) Ordering (units (unkno wn) date) Provider: unknown) Demi Otto MD (unknown) (no (unknown) (unknown) Orders (units (unkno wn) date) unknown) (unknown) (no (unknown) (unknown) Orders: (units (unkno wn) date) unknown) (unknown) (no (unknown) (unknown) PAP with hr HPV (units (unknown) date) 06/07/22 Z12.4 - unknown) Encounter for screening for malignant neoplasm (unknown) (no (unknown) (unknown) PFSH (units (unkno wn) date) unknown) (unknown) (no (unknown) (unknown) PROCEDURE:? MR (units (unknown) date) PELVIS WO/W CON unknown) (unknown) (no (unknown) (unknown) Painful (units (unkno wn) date) menstrual periods unknown) (unknown) (no (unknown) (unknown) Patient: (units (unkno wn) date) Clemente,Cory unknown) B MR#: (unknown) (no (unknown) (unknown) Patient: (units (unkno wn) date) Clemente,Cory unknown) B (unknown) (no (unknown) (unknown) Position Sitting (units (unknown) date) unknown) (unknown) (no (unknown) (unknown) Post-contrast (units (u nknown) date) axial or coronal unknown) VIBE/2-D FLASH with fat saturation from the iliac (unknown) (no (unknown) (unknown) Procedure: MR (units ( unknown) date) pelvis wo/w con unknown) (unknown) (no (unknown) (unknown) Reason For Visit (units (unknown) date) unknown) (unknown) (no (unknown) (unknown) Severe obesity (units (unknown) date) (BMI >= 40) unknown) (unknown) (no (unknown) (unknown) Shortness of (units (u nknown) date) breath unknown) (unknown) (no (unknown) (unknown) Signed By: (units (unk nown) date) unknown) (unknown) (no (unknown) (unknown) Sleep apnea (units (un known) date) () unknown) (unknown) (no (unknown) (unknown) Smoking Status: (units (unknown) date) Never smoker unknown) (unknown) (no (unknown) (unknown) Social History (units (unknown) date) unknown) (unknown) (no (unknown) (unknown) Soft tissues:? (units (unknown) date) 4.0 cm ovoid unknown) region of intrinsic T1 hyperintensity present along (unknown) (no (unknown) (unknown) Status post (units (un known) date) right foot unknown) surgery () (unknown) (no (unknown) (unknown) Surgical History (units (unknown) date) (Updated 01/31/22 unknown) @ 20:23 by Radha Toledo) (unknown) (no (unknown) (unknown) TECHNIQUE:? (units (un known) date) unknown) (unknown) (no (unknown) (unknown) This note may (units ( unknown) date) have been all or unknown) partially generated using voice recognition (unknown) (no (unknown) (unknown) Tobacco + (units (unkn own) date) Substance Use unknown) (unknown) (no (unknown) (unknown) Tobacco Status (units (unknown) date) unknown) (unknown) (no (unknown) (unknown) Urinary system:? (units (unknown) date) Bladder wall is unknown) normal in thickness.? Distal ureters are non (unknown) (no (unknown) (unknown) Uterus:? Uterus (units (unknown) date) is normal in unknown) size.? Endometrium is normal in thickness. Arcuate (unknown) (no (unknown) (unknown) Visit Reasons: (units (unknown) date) IUD unknown) placement/nexplan on removal*NOAUTHREQ D (unknown) (no (unknown) (unknown) Vitals (units (unkno wn) date) unknown) (unknown) (no (unknown) (unknown) Weight 288 lb (units ( unknown) date) unknown) (unknown) (no (unknown) (unknown) [History (units (unkno wn) date) Confirmed unknown) 06/07/22] (unknown) (no (unknown) (unknown) abdominal/pelvic (units (unknown) date) wall associated unknown) with the lower rectus musculature.? This is a (unknown) (no (unknown) (unknown) are not (units (unkno wn) date) excludable.? unknown) (unknown) (no (unknown) (unknown) buprenorphine 8 (units (unknown) date) mg-naloxone 2 mg unknown) sublingual film (Suboxone) 1 film sublingual (unknown) (no (unknown) (unknown) bupropion HCl (units ( unknown) date) 300 mg 24 hr unknown) tablet, extended release 300 mg PO DAILY 01/03/22 (unknown) (no (unknown) (unknown) considered.? 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 (units (un known) date) unknown) (unknown) (no (unknown) (unknown) endometriosis (units (u nknown) date) elsewhere within unknown) the pelvis identified.? Other etiologies for this (unknown) (no (unknown) (unknown) endometriosis in (units (unknown) date) the absence of unknown) prior surgery is uncommon but possible.? No (unknown) (no (unknown) (unknown) evidence of (units (un known) date) unknown) (unknown) (no (unknown) (unknown) finding (units (unkno wn) date) unknown) (unknown) (no (unknown) (unknown) have occurred. (units (unknown) date) If there are any unknown) questions, please contact the Medical Records (unknown) (no (unknown) (unknown) image 23 and (units (u nknown) date) series 14, image unknown) 74). (unknown) (no (unknown) (unknown) last pap 1 year (units (unknown) date) hx abnormal unknown) (unknown) (no (unknown) (unknown) lesions.? (units (unkn own) date) unknown) (unknown) (no (unknown) (unknown) loops are normal (units (unknown) date) in caliber.? unknown) (unknown) (no (unknown) (unknown) may occur. (units (unk nown) date) Occasional unknown) wrong-word or 'sound-alike' substitutions may have (unknown) (no (unknown) (unknown) midline anterior (units (unknown) date) abdominal/pelvic unknown) wall / lower rectus musculature (for example (unknown) (no (unknown) (unknown) millimeters.? (units ( unknown) date) Multiple unknown) Nabothian cysts are present.? (unknown) (no (unknown) (unknown) nonspecific (units (un known) date) finding.? unknown) Correlation with any prior history of or other (unknown) (no (unknown) (unknown) norgestimate (units (u nknown) date) 0.25 mg-ethinyl unknown) estradiol 35 mcg tablet (Sprintec (28)) 1 tab PO (unknown) (no (unknown) (unknown) normal in size.? (units (unknown) date) unknown) (unknown) (no (unknown) (unknown) occurred due to (units (unknown) date) the inherent unknown) limitations of voice recognition software. Please (unknown) (no (unknown) (unknown) of cervix, (units (unk nown) date) Z86.19 - Personal unknown) history of other infectious and parasitic diseases (unknown) (no (unknown) (unknown) oxycodone 5 mg (units (unknown) date) PO Q12H PRN 5 unknown) tabs 0RF pain, severe (unknown) (no (unknown) (unknown) oxycodone 5 mg (units (unknown) date) tablet 5 mg PO unknown) Q12H PRN pain, severe #5 tabs 06/07/22 [Rx (unknown) (no (unknown) (unknown) performed.? (units (un known) date) unknown) (unknown) (no (unknown) (unknown) pt here for IUD (units (unknown) date) placement. unknown) (unknown) (no (unknown) (unknown) read the note (units ( unknown) date) carefully and unknown) recognize, using context, where these substitutions (unknown) (no (unknown) (unknown) relationship to (units (unknown) date) the patient's unknown) menstrual cycle, could also be helpful.? Abdominal (unknown) (no (unknown) (unknown) saturation (units (unk nown) date) unknown) (unknown) (no (unknown) (unknown) series 10, (units (unk nown) date) unknown) (unknown) (no (unknown) (unknown) small bowel (units (un known) date) unknown) (unknown) (no (unknown) (unknown) software. 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 (units (u nknown) date) Sagittal or axial unknown) dynamic VIBE during administration of contrast.? (unknown) (no (unknown) (unknown) the (units (unkno wn) date) unknown) (unknown) (no (unknown) (unknown) this area may be (units (unknown) date) helpful as if unknown) performed previously, scar endometriosis could be (unknown) (no (unknown) (unknown) through the (units (unk nown) date) pelvis.? Optional unknown) long- and short-axis uterine nonbreath-hold T2 FSE (unknown) (no (unknown) (unknown) through (units (unkno wn) date) unknown) (unknown) (no (unknown) (unknown) to the (units (unkno wn) date) symphysis.? unknown) Optional diffusion weighted imaging and ADC may be (unknown) (no (unknown) (unknown) trazodone 50 mg (units (unknown) date) tablet 50 mg PO unknown) BEDTIME PRN sleep 01/03/22 [History Confirmed (unknown) (no (unknown) (unknown) treatment of (units (u nknown) date) uterine unknown) adenomyosis as likely cause of chronic pelvic pain. (unknown) (no (unknown) (unknown) up to 14 (units (unkno wn) date) unknown) (unknown) (no (unknown) (unknown) uterus (units (unkno wn) date) unknown) (unknown) (no (unknown) (unknown) variant anatomy.? (units (unknown) date) Junctional zone unknown) is ill-defined and appears thickened measuring (unknown) (no (unknown) (unknown) vessels are (units (un known) date) unknown) (unknown) (no (unknown) (unknown) wall (units (unkno wn) date) unknown) Result panel 31 (unknown) (no (unknown) (unknown) (no value) (units (unk nown) date) unknown) (unknown) (no (unknown) (unknown) 09:14 (units (unkno wn) date) unknown) (unknown) (no (unknown) (unknown) 1. Uterine (units (unk nown) date) findings unknown) suggestive of adenomyosis. (unknown) (no (unknown) (unknown) 06/07/22 (units (unkno wn) date) unknown) (unknown) (no (unknown) (unknown) 06/07/22] (units (unkn own) date) unknown) (unknown) (no (unknown) (unknown) 13 (units (unkno wn) date) unknown) (unknown) (no (unknown) (unknown) 2. Unremarkable (units (unknown) date) appearance of the unknown) ovaries. (unknown) (no (unknown) (unknown) 3. A 4 cm ovoid (units (unknown) date) region of unknown) abnormal signal is present at the anterior midline (unknown) (no (unknown) (unknown) 36 yo (units (unk nown) date) female presents unknown) for Mirena IUD placement for attempted conservative (unknown) (no (unknown) (unknown) 8.3 x 4.9 x 6.1 (units (unknown) date) cm.? Myometrium unknown) appear coarse and heterogeneous, possible (unknown) (no (unknown) (unknown) ? (units (unkno wn) date) unknown) (unknown) (no (unknown) (unknown) ADHD (-1998) (units (u nknown) date) unknown) (unknown) (no (unknown) (unknown) Abdominal pain (units (unknown) date) unknown) (unknown) (no (unknown) (unknown) Abnormal Pap (units (u nknown) date) smear of cervix unknown) (unknown) (no (unknown) (unknown) Abnormal chest (units (unknown) date) xray (-2014) unknown) (unknown) (no (unknown) (unknown) Acct:[id number] (units (unknown) date) unknown) (unknown) (no (unknown) (unknown) Adnexa:? Both (units ( unknown) date) ovaries are unknown) normal in size, without suspicious cystic or solid (unknown) (no (unknown) (unknown) Age/Sex: 36 / F (units (unknown) date) Date of Service: unknown) (unknown) (no (unknown) (unknown) Age/Sex: 36 / F (units (unknown) date) unknown) (unknown) (no (unknown) (unknown) Allergies (units (unkn own) date) unknown) (unknown) (no (unknown) (unknown) [place], [place] (units ( unknown) date) [id number] unknown) (unknown) (no (unknown) (unknown) Anesthesia (units (unk nown) date) unknown) (unknown) (no (unknown) (unknown) Anxiety (units (unkno wn) date) unknown) (unknown) (no (unknown) (unknown) Assessment + (units (u nknown) date) Plan unknown) (unknown) (no (unknown) (unknown) Asthma (units (unkno wn) date) unknown) (unknown) (no (unknown) (unknown) Attending Dr: (units ( unknown) date) Demi Santos unknown) Fam RIVERA (unknown) (no (unknown) (unknown) BID 01/03/22 (units (u nknown) date) [History unknown) Confirmed 06/07/22] (unknown) (no (unknown) (unknown) BMI 46.5 (units (unkno wn) date) unknown) (unknown) (no (unknown) (unknown) BP 126/76 (units (unkn own) date) unknown) (unknown) (no (unknown) (unknown) Blood Pressure (units (unknown) date) Location Rt unknown) brachial (unknown) (no (unknown) (unknown) Bones:? Marrow (units (unknown) date) demonstrates unknown) normal overall signal.? (unknown) (no (unknown) (unknown) Bowel and (units (unkn own) date) peritoneum:? No unknown) pathologic free pelvic fluid.? Inferior colon and (unknown) (no (unknown) (unknown) COMPARISON:? (units (u nknown) date) None. unknown) (unknown) (no (unknown) (unknown) Carpal tunnel (units ( unknown) date) syndrome () unknown) (unknown) (no (unknown) (unknown) Cervical cancer (units (unknown) date) () unknown) (unknown) (no (unknown) (unknown) [facility] (units (unknown) date) oth disease unknown) (unknown) (no (unknown) (unknown) Chief Complaint (units (unknown) date) unknown) (unknown) (no (unknown) (unknown) Chief Complaint: (units (unknown) date) Mirena IUD unknown) placement (unknown) (no (unknown) (unknown) Chlamydia (units (unkn own) date) () unknown) (unknown) (no (unknown) (unknown) Chronic insomnia (units (unknown) date) unknown) (unknown) (no (unknown) (unknown) Chronic low back (units (unknown) date) pain () unknown) (unknown) (no (unknown) (unknown) Chronic, (units (unkno wn) date) continuous use of unknown) opioids (unknown) (no (unknown) (unknown) Confirmed (units (unkn own) date) 06/07/22] unknown) (unknown) (no (unknown) (unknown) Coronal HASTE, (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 unknown) (unknown) (no (unknown) (unknown) Details: (units (unkno wn) date) unknown) (unknown) (no (unknown) (unknown) Diverticular (units (u nknown) date) disease (-2020) unknown) (unknown) (no (unknown) (unknown) Documented By: (units (unknown) date) Demi Otto unknown) Danielle RIVERA 06/07/22 09 (unknown) (no (unknown) (unknown) Draft (units (unkno wn) date) unknown) (unknown) (no (unknown) (unknown) FINDINGS:? (units (unk nown) date) unknown) (unknown) (no (unknown) (unknown) Family History (units (unknown) date) (Updated 01/31/22 unknown) @ 20:35 by Radha Toledo) (unknown) (no (unknown) (unknown) Father History (units (unknown) date) of heart disease unknown) (unknown) (no (unknown) (unknown) Fibromyalgia (units (u nknown) date) (-2015) unknown) (unknown) (no (unknown) (unknown) [facility]) (unknown) (no (unknown) (unknown) Gout (-2017) (units (u nknown) date) unknown) (unknown) (no (unknown) (unknown) Gynecology Visit (units (unknown) date) unknown) (unknown) (no (unknown) (unknown) H/O LEEP (units (unkno wn) date) unknown) (unknown) (no (unknown) (unknown) H/O laparoscopy (units (unknown) date) (-2009) unknown) (unknown) (no (unknown) (unknown) HPI (units (unkno wn) date) unknown) (unknown) (no (unknown) (unknown) Height 5 ft 6 in (units (unknown) date) unknown) (unknown) (no (unknown) (unknown) Herpes (-2018) (units (unknown) date) unknown) (unknown) (no (unknown) (unknown) History of (units (unk nown) date) unknown) (-08/08/04) (unknown) (no (unknown) (unknown) Human papilloma (units (unknown) date) virus (-2002) unknown) (unknown) (no (unknown) (unknown) Hyperlipidemia (units (unknown) date) unknown) (unknown) (no (unknown) (unknown) Hypertension (units (u nknown) date) unknown) (unknown) (no (unknown) (unknown) IMPRESSION:? (units (u nknown) date) unknown) (unknown) (no (unknown) (unknown) INDICATIONS:? (units ( unknown) date) pelvic cramping unknown) (unknown) (no (unknown) (unknown) Image quality:? (units (unknown) date) Adequate.? unknown) (unknown) (no (unknown) (unknown) Intake Note: (units (u nknown) date) unknown) (unknown) (no (unknown) (unknown) Intake performed (units (unknown) date) by: unknown) Abby Tate (unknown) (no (unknown) (unknown) Intake (units (unkno wn) date) unknown) (unknown) (no (unknown) (unknown) Intake- Clincial (units (unknown) date) Staff unknown) (unknown) (no (unknown) (unknown) Irritable bowel (units (unknown) date) syndrome (-2008) unknown) (unknown) (no (unknown) (unknown) Left ovarian (units (u nknown) date) cyst () unknown) (unknown) (no (unknown) (unknown) Loc: [facility] (units (unkno wn) date) unknown) (unknown) (no (unknown) (unknown) Loc: MRI (units (unkno wn) date) unknown) (unknown) (no (unknown) (unknown) [id number] (units (unk nown) date) unknown) (unknown) (no (unknown) (unknown) MR#: [id number] (units (unknown) date) unknown) (unknown) (no (unknown) (unknown) Medical History (units (unknown) date) (Updated 01/31/22 unknown) @ 20:23 by Radha Toledo) (unknown) (no (unknown) (unknown) Medications (units (un known) date) unknown) (unknown) (no (unknown) (unknown) Medications: (units (u nknown) date) unknown) (unknown) (no (unknown) (unknown) Mental health (units ( unknown) date) problem unknown) (unknown) (no (unknown) (unknown) Migraines (units (unkn own) date) (-2003) unknown) (unknown) (no (unknown) (unknown) Mother Diabetes (units (unknown) date) mellitus unknown) (unknown) (no (unknown) (unknown) New (units (unkno wn) date) unknown) (unknown) (no (unknown) (unknown) No Known Drug (units ( unknown) date) Allergies Allergy unknown) (Verified 06/07/22 09:14) (unknown) (no (unknown) (unknown) Nodes and (units (unkn own) date) vessels:? No unknown) pelvic or inguinal adenopathy by size criteria.? Iliac (unknown) (no (unknown) (unknown) Number: (units (unkno wn) date) [id number] ?? unknown) (unknown) (no (unknown) (unknown) Ordering (units (unkno wn) date) Provider: unknown) Demi Otto MD (unknown) (no (unknown) (unknown) Orders (units (unkno wn) date) unknown) (unknown) (no (unknown) (unknown) Orders: (units (unkno wn) date) unknown) (unknown) (no (unknown) (unknown) PAP with hr HPV (units (unknown) date) 06/07/22 Z12.4 - unknown) Encounter for screening for malignant neoplasm (unknown) (no (unknown) (unknown) PFSH (units (unkno wn) date) unknown) (unknown) (no (unknown) (unknown) PROCEDURE:? MR (units (unknown) date) PELVIS WO/W CON unknown) (unknown) (no (unknown) (unknown) Painful (units (unkno wn) date) menstrual periods unknown) (unknown) (no (unknown) (unknown) Patient: (units (unkno wn) date) Clemente,Cory unknown) B MR#: (unknown) (no (unknown) (unknown) Patient: (units (unkno wn) date) Clemente,Cory unknown) B (unknown) (no (unknown) (unknown) Pelvic US (units (unkn own) date) 12/28/21 at unknown) [place]? showed an anteverted normal size uterus measuring (unknown) (no (unknown) (unknown) Position Sitting (units (unknown) date) unknown) (unknown) (no (unknown) (unknown) Post-contrast (units (u nknown) date) axial or coronal unknown) VIBE/2-D FLASH with fat saturation from the iliac (unknown) (no (unknown) (unknown) Procedure: MR (units ( unknown) date) pelvis wo/w con unknown) (unknown) (no (unknown) (unknown) Reason For Visit (units (unknown) date) unknown) (unknown) (no (unknown) (unknown) Severe obesity (units (unknown) date) (BMI >= 40) unknown) (unknown) (no (unknown) (unknown) Shortness of (units (u nknown) date) breath unknown) (unknown) (no (unknown) (unknown) Signed By: (units (unk nown) date) unknown) (unknown) (no (unknown) (unknown) Sleep apnea (units (un known) date) () unknown) (unknown) (no (unknown) (unknown) Smoking Status: (units (unknown) date) Never smoker unknown) (unknown) (no (unknown) (unknown) Social History (units (unknown) date) unknown) (unknown) (no (unknown) (unknown) Soft tissues:? (units (unknown) date) 4.0 cm ovoid unknown) region of intrinsic T1 hyperintensity present along (unknown) (no (unknown) (unknown) Status post (units (un known) date) right foot unknown) surgery (-2000) (unknown) (no (unknown) (unknown) Surgical History (units (unknown) date) (Updated 01/31/22 unknown) @ 20:23 by Radha Toledo) (unknown) (no (unknown) (unknown) TECHNIQUE:? (units (un known) date) unknown) (unknown) (no (unknown) (unknown) This note may (units ( unknown) date) have been all or unknown) partially generated using voice recognition (unknown) (no (unknown) (unknown) Tobacco + (units (unkn own) date) Substance Use unknown) (unknown) (no (unknown) (unknown) Tobacco Status (units (unknown) date) unknown) (unknown) (no (unknown) (unknown) Urinary system:? (units (unknown) date) Bladder wall is unknown) normal in thickness.? Distal ureters are non (unknown) (no (unknown) (unknown) Uterus:? Uterus (units (unknown) date) is normal in unknown) size.? Endometrium is normal in thickness. Arcuate (unknown) (no (unknown) (unknown) Visit Reasons: (units (unknown) date) IUD unknown) placement/nexplan on removal*NOAUTHREQ D (unknown) (no (unknown) (unknown) Vitals (units (unkno wn) date) unknown) (unknown) (no (unknown) (unknown) Weight 288 lb (units ( unknown) date) unknown) (unknown) (no (unknown) (unknown) [History (units (unkno wn) date) Confirmed unknown) 06/07/22] (unknown) (no (unknown) (unknown) abdominal/pelvic (units (unknown) date) wall associated unknown) with the lower rectus musculature.? This is a (unknown) (no (unknown) (unknown) are not (units (unkno wn) date) excludable.? unknown) (unknown) (no (unknown) (unknown) bowel gas. (units (unk nown) date) unknown) (unknown) (no (unknown) (unknown) buprenorphine 8 (units (unknown) date) mg-naloxone 2 mg unknown) sublingual film (Suboxone) 1 film sublingual (unknown) (no (unknown) (unknown) bupropion HCl (units ( unknown) date) 300 mg 24 hr unknown) tablet, extended release 300 mg PO DAILY 01/03/22 (unknown) (no (unknown) (unknown) considered.? 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 (units (un known) date) unknown) (unknown) (no (unknown) (unknown) endometriosis (units (u nknown) date) elsewhere within unknown) the pelvis identified.? Other etiologies for this (unknown) (no (unknown) (unknown) endometriosis in (units (unknown) date) the absence of unknown) prior surgery is uncommon but possible.? No (unknown) (no (unknown) (unknown) evidence of (units (un known) date) unknown) (unknown) (no (unknown) (unknown) finding (units (unkno wn) date) unknown) (unknown) (no (unknown) (unknown) have occurred. (units (unknown) date) If there are any unknown) questions, please contact the Medical Records (unknown) (no (unknown) (unknown) image 23 and (units (u nknown) date) series 14, image unknown) 74). (unknown) (no (unknown) (unknown) last pap 1 year (units (unknown) date) hx abnormal unknown) (unknown) (no (unknown) (unknown) lesions.? (units (unkn own) date) unknown) (unknown) (no (unknown) (unknown) loops are normal (units (unknown) date) in caliber.? unknown) (unknown) (no (unknown) (unknown) may occur. (units (unk nown) date) Occasional unknown) wrong-word or 'sound-alike' substitutions may have (unknown) (no (unknown) (unknown) midline anterior (units (unknown) date) abdominal/pelvic unknown) wall / lower rectus musculature (for example (unknown) (no (unknown) (unknown) midline uterine (units (unknown) date) fundal fibroid, unknown) submucosal, measuring 1.2 cm.? Right ovary not (unknown) (no (unknown) (unknown) millimeters.? (units ( unknown) date) Multiple unknown) Nabothian cysts are present.? (unknown) (no (unknown) (unknown) nonspecific (units (un known) date) finding.? unknown) Correlation with any prior history of or other (unknown) (no (unknown) (unknown) norgestimate (units (u nknown) date) 0.25 mg-ethinyl unknown) estradiol 35 mcg tablet (Sprintec (28)) 1 tab PO (unknown) (no (unknown) (unknown) normal in size.? (units (unknown) date) unknown) (unknown) (no (unknown) (unknown) occurred due to (units (unknown) date) the inherent unknown) limitations of voice recognition software. Please (unknown) (no (unknown) (unknown) of cervix, (units (unk nown) date) Z86.19 - Personal unknown) history of other infectious and parasitic diseases (unknown) (no (unknown) (unknown) oxycodone 5 mg (units (unknown) date) PO Q12H PRN 5 unknown) tabs 0RF pain, severe (unknown) (no (unknown) (unknown) oxycodone 5 mg (units (unknown) date) tablet 5 mg PO unknown) Q12H PRN pain, severe #5 tabs 06/07/22 [Rx (unknown) (no (unknown) (unknown) performed.? (units (un known) date) unknown) (unknown) (no (unknown) (unknown) pt here for IUD (units (unknown) date) placement. unknown) (unknown) (no (unknown) (unknown) read the note (units ( unknown) date) carefully and unknown) recognize, using context, where these substitutions (unknown) (no (unknown) (unknown) relationship to (units (unknown) date) the patient's unknown) menstrual cycle, could also be helpful.? Abdominal (unknown) (no (unknown) (unknown) saturation (units (unk nown) date) unknown) (unknown) (no (unknown) (unknown) seen.? No free (units (unknown) date) fluid. ? Reported unknown) limited evaluation due to marked overlying (unknown) (no (unknown) (unknown) series 10, (units (unk nown) date) unknown) (unknown) (no (unknown) (unknown) small bowel (units (un known) date) unknown) (unknown) (no (unknown) (unknown) software. 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 Pain unknown) somewhat nondescript last visit, though (unknown) (no (unknown) (unknown) surgery in (units (unk nown) date) unknown) (unknown) (no (unknown) (unknown) the uterus.? (units (u nknown) date) Sagittal or axial unknown) dynamic VIBE during administration of contrast.? (unknown) (no (unknown) (unknown) the (units (unkno wn) date) unknown) (unknown) (no (unknown) (unknown) this area may be (units (unknown) date) helpful as if unknown) performed previously, scar endometriosis could be (unknown) (no (unknown) (unknown) through the (units (unk nown) date) pelvis.? Optional unknown) long- and short-axis uterine nonbreath-hold T2 FSE (unknown) (no (unknown) (unknown) through (units (unkno wn) date) unknown) (unknown) (no (unknown) (unknown) to the (units (unkno wn) date) symphysis.? unknown) Optional diffusion weighted imaging and ADC may be (unknown) (no (unknown) (unknown) trazodone 50 mg (units (unknown) date) tablet 50 mg PO unknown) BEDTIME PRN sleep 01/03/22 [History Confirmed (unknown) (no (unknown) (unknown) treatment of (units (u nknown) date) uterine unknown) adenomyosis as likely cause of chronic pelvic pain. Pain (unknown) (no (unknown) (unknown) up to 14 (units (unkno wn) date) unknown) (unknown) (no (unknown) (unknown) uterus (units (unkno wn) date) unknown) (unknown) (no (unknown) (unknown) variant anatomy.? (units (unknown) date) Junctional zone unknown) is ill-defined and appears thickened measuring (unknown) (no (unknown) (unknown) vessels are (units (un known) date) unknown) (unknown) (no (unknown) (unknown) visualized.? (units (u nknown) date) Left ovary with a unknown) 3.1 cm left ovarian cyst,? no adnexal masses (unknown) (no (unknown) (unknown) wall (units (unkno wn) date) unknown) Result panel 32 (unknown) (no (unknown) (unknown) (no value) (units (unk nown) date) unknown) (unknown) (no (unknown) (unknown) 09:14 (units (unkno wn) date) unknown) (unknown) (no (unknown) (unknown) 1. Uterine (units (unk nown) date) findings unknown) suggestive of adenomyosis. (unknown) (no (unknown) (unknown) 06/07/22 (units (unkno wn) date) unknown) (unknown) (no (unknown) (unknown) 06/07/22] (units (unkn own) date) unknown) (unknown) (no (unknown) (unknown) 13 (units (unkno wn) date) unknown) (unknown) (no (unknown) (unknown) 2. Unremarkable (units (unknown) date) appearance of the unknown) ovaries. (unknown) (no (unknown) (unknown) 3. A 4 cm ovoid (units (unknown) date) region of unknown) abnormal signal is present at the anterior midline (unknown) (no (unknown) (unknown) 36 yo (units (unk n) date) female presents unknown) for Mirena IUD placement for attempted conservative (unknown) (no (unknown) (unknown) 8.3 x 4.9 x 6.1 (units (unknown) date) cm.? Myometrium unknown) appear coarse and heterogeneous, possible (unknown) (no (unknown) (unknown) ? (units (unkno wn) date) unknown) (unknown) (no (unknown) (unknown) ADHD (-1998) (units (u nknown) date) unknown) (unknown) (no (unknown) (unknown) Abdominal pain (units (unknown) date) unknown) (unknown) (no (unknown) (unknown) Abnormal Pap (units (u nknown) date) smear of cervix unknown) (unknown) (no (unknown) (unknown) Abnormal chest (units (unknown) date) xray (-2014) unknown) (unknown) (no (unknown) (unknown) Acct:[id number] (units (unknown) date) unknown) (unknown) (no (unknown) (unknown) Adnexa:? Both (units ( unknown) date) ovaries are unknown) normal in size, without suspicious cystic or solid (unknown) (no (unknown) (unknown) After discussion (units (unknown) date) by phone, she did unknown) desire trial of a progesterone IUD for (unknown) (no (unknown) (unknown) Age/Sex: 36 / F (units (unknown) date) Date of Service: unknown) (unknown) (no (unknown) (unknown) Age/Sex: 36 / F (units (unknown) date) unknown) (unknown) (no (unknown) (unknown) Allergies (units (unkn own) date) unknown) (unknown) (no (unknown) (unknown) [place], [place] (units ( unknown) date) [id number] unknown) (unknown) (no (unknown) (unknown) Anesthesia (units (unk nown) date) unknown) (unknown) (no (unknown) (unknown) Anxiety (units (unkno wn) date) unknown) (unknown) (no (unknown) (unknown) Assessment + (units (u nknown) date) Plan unknown) (unknown) (no (unknown) (unknown) Asthma (units (unkno wn) date) unknown) (unknown) (no (unknown) (unknown) Attending Dr: (units ( unknown) date) Demi Santos unknown) Fma RIVERA (unknown) (no (unknown) (unknown) BID 01/03/22 (units (u nknown) date) [History unknown) Confirmed 06/07/22] (unknown) (no (unknown) (unknown) BMI 46.5 (units (unkno wn) date) unknown) (unknown) (no (unknown) (unknown) BP 126/76 (units (unkn own) date) unknown) (unknown) (no (unknown) (unknown) Blood Pressure (units (unknown) date) Location Rt unknown) brachial (unknown) (no (unknown) (unknown) Bones:? Marrow (units (unknown) date) demonstrates unknown) normal overall signal.? (unknown) (no (unknown) (unknown) Bowel and (units (unkn own) date) peritoneum:? No unknown) pathologic free pelvic fluid.? Inferior colon and (unknown) (no (unknown) (unknown) COMPARISON:? (units (u nknown) date) None. unknown) (unknown) (no (unknown) (unknown) Carpal tunnel (units ( unknown) date) syndrome (-2020) unknown) (unknown) (no (unknown) (unknown) Cervical cancer (units (unknown) date) (-2002) unknown) (unknown) (no (unknown) (unknown) Kfjmmbg-Tjcra-Sc (units (unknown) date) oth disease unknown) (unknown) (no (unknown) (unknown) Chief Complaint (units (unknown) date) unknown) (unknown) (no (unknown) (unknown) Chief Complaint: (units (unknown) date) Mirena IUD unknown) placement (unknown) (no (unknown) (unknown) Chlamydia (units (unkn own) date) () unknown) (unknown) (no (unknown) (unknown) Chronic insomnia (units (unknown) date) unknown) (unknown) (no (unknown) (unknown) Chronic low back (units (unknown) date) pain () unknown) (unknown) (no (unknown) (unknown) Chronic, (units (unkno wn) date) continuous use of unknown) opioids (unknown) (no (unknown) (unknown) Confirmed (units (unkn own) date) 06/07/22] unknown) (unknown) (no (unknown) (unknown) Coronal HASTE, (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 unknown) (unknown) (no (unknown) (unknown) Details: (units (unkno wn) date) unknown) (unknown) (no (unknown) (unknown) Diverticular (units (u nknown) date) disease (-2020) unknown) (unknown) (no (unknown) (unknown) Documented By: (units (unknown) date) Demi Otto unknown) Danielle RIVERA 06/07/22 09 (unknown) (no (unknown) (unknown) Draft (units (unkno wn) date) unknown) (unknown) (no (unknown) (unknown) FINDINGS:? (units (unk nown) date) unknown) (unknown) (no (unknown) (unknown) Family History (units (unknown) date) (Updated 01/31/22 unknown) @ 20:35 by Radha Toledo) (unknown) (no (unknown) (unknown) Father History (units (unknown) date) of heart disease unknown) (unknown) (no (unknown) (unknown) Fibromyalgia (units (u nknown) date) (-2015) unknown) (unknown) (no (unknown) (unknown) [facility]) (unknown) (no (unknown) (unknown) Gout (-2016) (units (u nknown) date) unknown) (unknown) (no (unknown) (unknown) Gynecology Visit (units (unknown) date) unknown) (unknown) (no (unknown) (unknown) H/O LEEP (units (unkno wn) date) unknown) (unknown) (no (unknown) (unknown) H/O laparoscopy (units (unknown) date) () unknown) (unknown) (no (unknown) (unknown) HPI (units (unkno wn) date) unknown) (unknown) (no (unknown) (unknown) Height 5 ft 6 in (units (unknown) date) unknown) (unknown) (no (unknown) (unknown) Here for Mirena (units (unknown) date) IUD insertion. If unknown) IUD inserted with success, then another (unknown) (no (unknown) (unknown) Herpes () (units (unknown) date) unknown) (unknown) (no (unknown) (unknown) History of (units (unk nown) date) unknown) (-08/08/04) (unknown) (no (unknown) (unknown) Human papilloma (units (unknown) date) virus (-2002) unknown) (unknown) (no (unknown) (unknown) Hyperlipidemia (units (unknown) date) unknown) (unknown) (no (unknown) (unknown) Hypertension (units (u nknown) date) unknown) (unknown) (no (unknown) (unknown) IMPRESSION:? (units (u nknown) date) unknown) (unknown) (no (unknown) (unknown) INDICATIONS:? (units ( unknown) date) pelvic cramping unknown) (unknown) (no (unknown) (unknown) Image quality:? (units (unknown) date) Adequate.? unknown) (unknown) (no (unknown) (unknown) Intake Note: (units (u nknown) date) unknown) (unknown) (no (unknown) (unknown) Intake performed (units (unknown) date) by: unknown) Abby Tate (unknown) (no (unknown) (unknown) Intake (units (unkno wn) date) unknown) (unknown) (no (unknown) (unknown) Intake- Clincial (units (unknown) date) Staff unknown) (unknown) (no (unknown) (unknown) Irritable bowel (units (unknown) date) syndrome (-2008) unknown) (unknown) (no (unknown) (unknown) Left ovarian (units (u nknown) date) cyst () unknown) (unknown) (no (unknown) (unknown) Loc: [facility] (units (unkno wn) date) unknown) (unknown) (no (unknown) (unknown) Loc: MRI (units (unkno wn) date) unknown) (unknown) (no (unknown) (unknown) [id number] (units (unk nown) date) unknown) (unknown) (no (unknown) (unknown) MR#: [id number] (units (unknown) date) unknown) (unknown) (no (unknown) (unknown) MRI: (units (unkno wn) date) unknown) (unknown) (no (unknown) (unknown) Medical History (units (unknown) date) (Updated 01/31/22 unknown) @ 20:23 by Radha Toledo) (unknown) (no (unknown) (unknown) Medications (units (un known) date) unknown) (unknown) (no (unknown) (unknown) Medications: (units (u nknown) date) unknown) (unknown) (no (unknown) (unknown) Mental health (units ( unknown) date) problem unknown) (unknown) (no (unknown) (unknown) Migraines (units (unkn own) date) (-2004) unknown) (unknown) (no (unknown) (unknown) Mother Diabetes (units (unknown) date) mellitus unknown) (unknown) (no (unknown) (unknown) New (units (unkno wn) date) unknown) (unknown) (no (unknown) (unknown) No Known Drug (units ( unknown) date) Allergies Allergy unknown) (Verified 06/07/22 09:14) (unknown) (no (unknown) (unknown) Nodes and (units (unkn own) date) vessels:? No unknown) pelvic or inguinal adenopathy by size criteria.? Iliac (unknown) (no (unknown) (unknown) Number: (units (unkno wn) date) [id number] ?? unknown) (unknown) (no (unknown) (unknown) Ordering (units (unkno wn) date) Provider: unknown) Demi Otto MD (unknown) (no (unknown) (unknown) Orders (units (unkno wn) date) unknown) (unknown) (no (unknown) (unknown) Orders: (units (unkno wn) date) unknown) (unknown) (no (unknown) (unknown) PAP with hr HPV (units (unknown) date) 06/07/22 Z12.4 - unknown) Encounter for screening for malignant neoplasm (unknown) (no (unknown) (unknown) PFSH (units (unkno wn) date) unknown) (unknown) (no (unknown) (unknown) PROCEDURE:? MR (units (unknown) date) PELVIS WO/W CON unknown) (unknown) (no (unknown) (unknown) Pain started (units (u nknown) date) nearly 1 year unknown) ago. Last visit she reported frequently the (unknown) (no (unknown) (unknown) Painful (units (unkno wn) date) menstrual periods unknown) (unknown) (no (unknown) (unknown) Patient: (units (unkno wn) date) Cory Osborne unknown) B MR#: (unknown) (no (unknown) (unknown) Patient: (units (unkno wn) date) Cory Osborne unknown) B (unknown) (no (unknown) (unknown) Pelvic US (units (unkn own) date) 12/28/21 at unknown) [place]? showed an anteverted normal size uterus measuring (unknown) (no (unknown) (unknown) Position Sitting (units (unknown) date) unknown) (unknown) (no (unknown) (unknown) Post-contrast (units (u nknown) date) axial or coronal unknown) VIBE/2-D FLASH with fat saturation from the iliac (unknown) (no (unknown) (unknown) Procedure: MR (units ( unknown) date) pelvis wo/w con unknown) (unknown) (no (unknown) (unknown) Reason For Visit (units (unknown) date) unknown) (unknown) (no (unknown) (unknown) Severe obesity (units (unknown) date) (BMI >= 40) unknown) (unknown) (no (unknown) (unknown) Shortness of (units (u nknown) date) breath unknown) (unknown) (no (unknown) (unknown) Signed By: (units (unk nown) date) unknown) (unknown) (no (unknown) (unknown) Sleep apnea (units (un known) date) () unknown) (unknown) (no (unknown) (unknown) Smoking Status: (units (unknown) date) Never smoker unknown) (unknown) (no (unknown) (unknown) Social History (units (unknown) date) unknown) (unknown) (no (unknown) (unknown) Soft tissues:? (units (unknown) date) 4.0 cm ovoid unknown) region of intrinsic T1 hyperintensity present along (unknown) (no (unknown) (unknown) Status post (units (un known) date) right foot unknown) surgery (-2000) (unknown) (no (unknown) (unknown) Surgical History (units (unknown) date) (Updated 01/31/22 unknown) @ 20:23 by Radha Toledo) (unknown) (no (unknown) (unknown) TECHNIQUE:? (units (un known) date) unknown) (unknown) (no (unknown) (unknown) This note may (units ( unknown) date) have been all or unknown) partially generated using voice recognition (unknown) (no (unknown) (unknown) Tobacco + (units (unkn own) date) Substance Use unknown) (unknown) (no (unknown) (unknown) Tobacco Status (units (unknown) date) unknown) (unknown) (no (unknown) (unknown) Urinary system:? (units (unknown) date) Bladder wall is unknown) normal in thickness.? Distal ureters are non (unknown) (no (unknown) (unknown) Uterus:? Uterus (units (unknown) date) is normal in unknown) size.? Endometrium is normal in thickness. Arcuate (unknown) (no (unknown) (unknown) Visit Reasons: (units (unknown) date) IUD unknown) placement/nexplan on removal*NOAUTHREQ D (unknown) (no (unknown) (unknown) Vitals (units (unkno wn) date) unknown) (unknown) (no (unknown) (unknown) Weight 288 lb (units ( unknown) date) unknown) (unknown) (no (unknown) (unknown) [History (units (unkno wn) date) Confirmed unknown) 06/07/22] (unknown) (no (unknown) (unknown) abdominal/pelvic (units (unknown) date) wall associated unknown) with the lower rectus musculature.? This is a (unknown) (no (unknown) (unknown) and in general (units (unknown) date) would prefer unknown) start with conservative treatment. Pain not severe. (unknown) (no (unknown) (unknown) are not (units (unkno wn) date) excludable.? unknown) (unknown) (no (unknown) (unknown) area in anterior (units (unknown) date) rectus muscles unknown) after correlation with the prior CT scan with (unknown) (no (unknown) (unknown) attempted (units (unkn own) date) treatment of the unknown) uterine adenomyosis which appears to be cause of her (unknown) (no (unknown) (unknown) bowel gas. (units (unk nown) date) unknown) (unknown) (no (unknown) (unknown) buprenorphine 8 (units (unknown) date) mg-naloxone 2 mg unknown) sublingual film (Suboxone) 1 film sublingual (unknown) (no (unknown) (unknown) bupropion HCl (units ( unknown) date) 300 mg 24 hr unknown) tablet, extended release 300 mg PO DAILY 01/03/22 (unknown) (no (unknown) (unknown) considered.? 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 (units (un known) date) unknown) (unknown) (no (unknown) (unknown) endometriosis (units (u nknown) date) elsewhere within unknown) the pelvis identified.? Other etiologies for this (unknown) (no (unknown) (unknown) endometriosis in (units (unknown) date) the absence of unknown) prior surgery is uncommon but possible.? No (unknown) (no (unknown) (unknown) evidence of (units (un known) date) unknown) (unknown) (no (unknown) (unknown) finding (units (unkno wn) date) unknown) (unknown) (no (unknown) (unknown) have occurred. (units (unknown) date) If there are any unknown) questions, please contact the Medical Records (unknown) (no (unknown) (unknown) having monthly (units (unknown) date) menses with unknown) Nexplanon. She is having worse menstrual cramps with (unknown) (no (unknown) (unknown) her last visit, (units (unknown) date) pelvic MRI showed unknown) uterine adenomyosis. See report below. 4 cm (unknown) (no (unknown) (unknown) image 23 and (units (u nknown) date) series 14, image unknown) 74). (unknown) (no (unknown) (unknown) last pap 1 year (units (unknown) date) hx abnormal unknown) (unknown) (no (unknown) (unknown) lesions.? (units (unkn own) date) unknown) (unknown) (no (unknown) (unknown) loops are normal (units (unknown) date) in caliber.? unknown) (unknown) (no (unknown) (unknown) mass. (units (unkno wn) date) unknown) (unknown) (no (unknown) (unknown) may occur. (units (unk nown) date) Occasional unknown) wrong-word or 'sound-alike' substitutions may have (unknown) (no (unknown) (unknown) menses but also (units (unknown) date) having similar unknown) discomfort without menstrual bleeding. Recent (unknown) (no (unknown) (unknown) menses sometimes (units (unknown) date) heavier. She is unknown) not certain she is finished with childbearing (unknown) (no (unknown) (unknown) midline anterior (units (unknown) date) abdominal/pelvic unknown) wall / lower rectus musculature (for example (unknown) (no (unknown) (unknown) midline uterine (units (unknown) date) fundal fibroid, unknown) submucosal, measuring 1.2 cm.? Right ovary not (unknown) (no (unknown) (unknown) millimeters.? (units ( unknown) date) Multiple unknown) Nabothian cysts are present.? (unknown) (no (unknown) (unknown) nonspecific (units (un known) date) finding.? unknown) Correlation with any prior history of or other (unknown) (no (unknown) (unknown) norgestimate (units (u nknown) date) 0.25 mg-ethinyl unknown) estradiol 35 mcg tablet (Sprintec (28)) 1 tab PO (unknown) (no (unknown) (unknown) normal in size.? (units (unknown) date) unknown) (unknown) (no (unknown) (unknown) notices pain is (units (unknown) date) mostly in the unknown) midline. She has a Nexplanon in place and is (unknown) (no (unknown) (unknown) occurred due to (units (unknown) date) the inherent unknown) limitations of voice recognition software. Please (unknown) (no (unknown) (unknown) of cervix, (units (unk nown) date) Z86.19 - Personal unknown) history of other infectious and parasitic diseases (unknown) (no (unknown) (unknown) oxycodone 5 mg (units (unknown) date) PO Q12H PRN 5 unknown) tabs 0RF pain, severe (unknown) (no (unknown) (unknown) oxycodone 5 mg (units (unknown) date) tablet 5 mg PO unknown) Q12H PRN pain, severe #5 tabs 06/07/22 [Rx (unknown) (no (unknown) (unknown) pelvic pain. (units (u nknown) date) unknown) (unknown) (no (unknown) (unknown) performed.? (units (un known) date) unknown) (unknown) (no (unknown) (unknown) provider will do (units (unknown) date) Nexplanon removal unknown) since I have not done Nexplanons. (unknown) (no (unknown) (unknown) pt here for IUD (units (unknown) date) placement. unknown) (unknown) (no (unknown) (unknown) radiologist, (units (u nknown) date) felt to be scar unknown) tissue from her and not an endometrial (unknown) (no (unknown) (unknown) read the note (units ( unknown) date) carefully and unknown) recognize, using context, where these substitutions (unknown) (no (unknown) (unknown) relationship to (units (unknown) date) the patient's unknown) menstrual cycle, could also be helpful.? Abdominal (unknown) (no (unknown) (unknown) saturation (units (unk nown) date) unknown) (unknown) (no (unknown) (unknown) seen.? No free (units (unknown) date) fluid. ? Reported unknown) limited evaluation due to marked overlying (unknown) (no (unknown) (unknown) series 10, (units (unk nown) date) unknown) (unknown) (no (unknown) (unknown) small bowel (units (un known) date) unknown) (unknown) (no (unknown) (unknown) software. 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 Since last visit she (unknown) (no (unknown) (unknown) surgery in (units (unk nown) date) unknown) (unknown) (no (unknown) (unknown) the uterus.? (units (u nknown) date) Sagittal or axial unknown) dynamic VIBE during administration of contrast.? (unknown) (no (unknown) (unknown) the (units (unkno wn) date) unknown) (unknown) (no (unknown) (unknown) this area may be (units (unknown) date) helpful as if unknown) performed previously, scar endometriosis could be (unknown) (no (unknown) (unknown) through the (units (unk nown) date) pelvis.? Optional unknown) long- and short-axis uterine nonbreath-hold T2 FSE (unknown) (no (unknown) (unknown) through (units (unkno wn) date) unknown) (unknown) (no (unknown) (unknown) to the (units (unkno wn) date) symphysis.? unknown) Optional diffusion weighted imaging and ADC may be (unknown) (no (unknown) (unknown) trazodone 50 mg (units (unknown) date) tablet 50 mg PO unknown) BEDTIME PRN sleep 01/03/22 [History Confirmed (unknown) (no (unknown) (unknown) treatment of (units (u nknown) date) uterine unknown) adenomyosis as likely cause of chronic pelvic pain. Since (unknown) (no (unknown) (unknown) up to 14 (units (unkno wn) date) unknown) (unknown) (no (unknown) (unknown) uterus (units (unkno wn) date) unknown) (unknown) (no (unknown) (unknown) variant anatomy.? (units (unknown) date) Junctional zone unknown) is ill-defined and appears thickened measuring (unknown) (no (unknown) (unknown) vessels are (units (un known) date) unknown) (unknown) (no (unknown) (unknown) visualized.? (units (u nknown) date) Left ovary with a unknown) 3.1 cm left ovarian cyst,? no adnexal masses (unknown) (no (unknown) (unknown) wall (units (unkno wn) date) unknown) Result panel 33 (unknown) (no (unknown) (unknown) (no value) (units (unk nown) date) unknown) (unknown) (no (unknown) (unknown) 09:14 (units (unkno wn) date) unknown) (unknown) (no (unknown) (unknown) 1. Uterine (units (unk nown) date) findings unknown) suggestive of adenomyosis. (unknown) (no (unknown) (unknown) 06/07/22 (units (unkno wn) date) unknown) (unknown) (no (unknown) (unknown) 06/07/22] (units (unkn own) date) unknown) (unknown) (no (unknown) (unknown) 13 (units (unkno wn) date) unknown) (unknown) (no (unknown) (unknown) 2. Unremarkable (units (unknown) date) appearance of the unknown) ovaries. (unknown) (no (unknown) (unknown) 3. A 4 cm ovoid (units (unknown) date) region of unknown) abnormal signal is present at the anterior midline (unknown) (no (unknown) (unknown) 36 yo (units (unk nown) date) female presents unknown) for Mirena IUD placement for attempted conservative (unknown) (no (unknown) (unknown) 8.3 x 4.9 x 6.1 (units (unknown) date) cm.? Myometrium unknown) appear coarse and heterogeneous, possible (unknown) (no (unknown) (unknown) ? (units (unkno wn) date) unknown) (unknown) (no (unknown) (unknown) ADHD (-1998) (units (u nknown) date) unknown) (unknown) (no (unknown) (unknown) Abdominal pain (units (unknown) date) unknown) (unknown) (no (unknown) (unknown) Abnormal Pap (units (u nknown) date) smear of cervix unknown) (unknown) (no (unknown) (unknown) Abnormal chest (units (unknown) date) xray (-2014) unknown) (unknown) (no (unknown) (unknown) Acct:[id number] (units (unknown) date) unknown) (unknown) (no (unknown) (unknown) Adnexa:? Both (units ( unknown) date) ovaries are unknown) normal in size, without suspicious cystic or solid (unknown) (no (unknown) (unknown) After discussion (units (unknown) date) by phone, she did unknown) desire trial of a progesterone IUD for (unknown) (no (unknown) (unknown) Age/Sex: 36 / F (units (unknown) date) Date of Service: unknown) (unknown) (no (unknown) (unknown) Age/Sex: 36 / F (units (unknown) date) unknown) (unknown) (no (unknown) (unknown) Allergies (units (unkn own) date) unknown) (unknown) (no (unknown) (unknown) [place], [place] (units ( unknown) date) [id number] unknown) (unknown) (no (unknown) (unknown) Anesthesia (units (unk nown) date) unknown) (unknown) (no (unknown) (unknown) Anxiety (units (unkno wn) date) unknown) (unknown) (no (unknown) (unknown) Assessment + (units (u nknown) date) Plan unknown) (unknown) (no (unknown) (unknown) Asthma (units (unkno wn) date) unknown) (unknown) (no (unknown) (unknown) Attending Dr: (units ( unknown) date) Demi Santos unknown) Fam RIVERA (unknown) (no (unknown) (unknown) BID 01/03/22 (units (u nknown) date) [History unknown) Confirmed 06/07/22] (unknown) (no (unknown) (unknown) BMI 46.5 (units (unkno wn) date) unknown) (unknown) (no (unknown) (unknown) BP 126/76 (units (unkn own) date) unknown) (unknown) (no (unknown) (unknown) Blood Pressure (units (unknown) date) Location Rt unknown) brachial (unknown) (no (unknown) (unknown) Bones:? Marrow (units (unknown) date) demonstrates unknown) normal overall signal.? (unknown) (no (unknown) (unknown) Bowel and (units (unkn own) date) peritoneum:? No unknown) pathologic free pelvic fluid.? Inferior colon and (unknown) (no (unknown) (unknown) COMPARISON:? (units (u nknown) date) None. unknown) (unknown) (no (unknown) (unknown) Carpal tunnel (units ( unknown) date) syndrome () unknown) (unknown) (no (unknown) (unknown) Cervical cancer (units (unknown) date) (-2002) unknown) (unknown) (no (unknown) (unknown) Cervix cleaned (units (unknown) date) with Betadine: unknown) Yes (unknown) (no (unknown) (unknown) Wxntifu-Bowlm-Nr (units (unknown) date) oth disease unknown) (unknown) (no (unknown) (unknown) Chief Complaint (units (unknown) date) unknown) (unknown) (no (unknown) (unknown) Chief Complaint: (units (unknown) date) Mirena IUD unknown) placement (unknown) (no (unknown) (unknown) Chlamydia (units (unkn own) date) () unknown) (unknown) (no (unknown) (unknown) Chronic insomnia (units (unknown) date) unknown) (unknown) (no (unknown) (unknown) Chronic low back (units (unknown) date) pain () unknown) (unknown) (no (unknown) (unknown) Chronic, (units (unkno wn) date) continuous use of unknown) opioids (unknown) (no (unknown) (unknown) Confirmed (units (unkn own) date) 06/07/22] unknown) (unknown) (no (unknown) (unknown) Consent Form (units (u nknown) date) Signed: Yes unknown) (unknown) (no (unknown) (unknown) Coronal HASTE, (units (unknown) date) sagittal unknown) breath-hold T2 FSE; axial T1 FSE with and without fat (unknown) (no (unknown) (unknown) Culture for (units (un known) date) GC/CT obtained: unknown) No (unknown) (no (unknown) (unknown) DAILY #28 tabs (units (unknown) date) 02/01/22 [Rx unknown) Confirmed 06/07/22] (unknown) (no (unknown) (unknown) : 1985 (units (unknown) date) Acct:[id number] unknown) (unknown) (no (unknown) (unknown) : 1985 (units (unknown) date) unknown) (unknown) (no (unknown) (unknown) Date of Service: (units (unknown) date) 04/19/22 unknown) (unknown) (no (unknown) (unknown) Depression (units (unk nown) date) unknown) (unknown) (no (unknown) (unknown) Dept at (units (unkno wn) date) . unknown) (unknown) (no (unknown) (unknown) Details: (units (unkno wn) date) unknown) (unknown) (no (unknown) (unknown) Dilation Cervix: (units (unknown) date) Yes unknown) (unknown) (no (unknown) (unknown) Diverticular (units (u nknown) date) disease () unknown) (unknown) (no (unknown) (unknown) Documented By: (units (unknown) date) Demi Otto unknown) Danielle RIVERA 06/07/22 09 (unknown) (no (unknown) (unknown) Draft (units (unkno wn) date) unknown) (unknown) (no (unknown) (unknown) Explained (units (unkn own) date) Risks/Benefits/Al unknown) ternatives: Yes (unknown) (no (unknown) (unknown) FINDINGS:? (units (unk nown) date) unknown) (unknown) (no (unknown) (unknown) Family History (units (unknown) date) (Updated 01/31/22 unknown) @ 20:35 by Radha Toledo) (unknown) (no (unknown) (unknown) Father History (units (unknown) date) of heart disease unknown) (unknown) (no (unknown) (unknown) Fibromyalgia (units (u nknown) date) (2016) unknown) (unknown) (no (unknown) (unknown) [facility]) (unknown) (no (unknown) (unknown) Gout (-2017) (units (u nknown) date) unknown) (unknown) (no (unknown) (unknown) Gynecology Visit (units (unknown) date) unknown) (unknown) (no (unknown) (unknown) H/O LEEP (units (unkno wn) date) unknown) (unknown) (no (unknown) (unknown) H/O laparoscopy (units (unknown) date) (-2009) unknown) (unknown) (no (unknown) (unknown) HPI (units (unkno wn) date) unknown) (unknown) (no (unknown) (unknown) Height 5 ft 6 in (units (unknown) date) unknown) (unknown) (no (unknown) (unknown) Here for Mirena (units (unknown) date) IUD insertion. If unknown) IUD inserted with success, then another (unknown) (no (unknown) (unknown) Herpes () (units (unknown) date) unknown) (unknown) (no (unknown) (unknown) History of (units (unk nown) date) unknown) (-08/08/04) (unknown) (no (unknown) (unknown) Human papilloma (units (unknown) date) virus (-2002) unknown) (unknown) (no (unknown) (unknown) Hyperlipidemia (units (unknown) date) unknown) (unknown) (no (unknown) (unknown) Hypertension (units (u nknown) date) unknown) (unknown) (no (unknown) (unknown) IMPRESSION:? (units (u nknown) date) unknown) (unknown) (no (unknown) (unknown) INDICATIONS:? (units ( unknown) date) pelvic cramping unknown) (unknown) (no (unknown) (unknown) IUD- Insertion (units (unknown) date) unknown) (unknown) (no (unknown) (unknown) Image quality:? (units (unknown) date) Adequate.? unknown) (unknown) (no (unknown) (unknown) Intake Note: (units (u nknown) date) unknown) (unknown) (no (unknown) (unknown) Intake performed (units (unknown) date) by: unknown) Abby Tate (unknown) (no (unknown) (unknown) Intake (units (unkno wn) date) unknown) (unknown) (no (unknown) (unknown) Intake- Clincial (units (unknown) date) Staff unknown) (unknown) (no (unknown) (unknown) Irritable bowel (units (unknown) date) syndrome (-2008) unknown) (unknown) (no (unknown) (unknown) Left ovarian (units (u nknown) date) cyst () unknown) (unknown) (no (unknown) (unknown) Loc: [facility] (units (unkno wn) date) unknown) (unknown) (no (unknown) (unknown) Loc: MRI (units (unkno wn) date) unknown) (unknown) (no (unknown) (unknown) [id number] (units (unk nown) date) unknown) (unknown) (no (unknown) (unknown) MR#: [id number] (units (unknown) date) unknown) (unknown) (no (unknown) (unknown) MRI: (units (unkno wn) date) unknown) (unknown) (no (unknown) (unknown) Medical History (units (unknown) date) (Updated 01/31/22 unknown) @ 20:23 by Radha Toledo) (unknown) (no (unknown) (unknown) Medications (units (un known) date) unknown) (unknown) (no (unknown) (unknown) Medications: (units (u nknown) date) unknown) (unknown) (no (unknown) (unknown) Mental health (units ( unknown) date) problem unknown) (unknown) (no (unknown) (unknown) Migraines (units (unkn own) date) (-2003) unknown) (unknown) (no (unknown) (unknown) Mother Diabetes (units (unknown) date) mellitus unknown) (unknown) (no (unknown) (unknown) New (units (unkno wn) date) unknown) (unknown) (no (unknown) (unknown) No Known Drug (units ( unknown) date) Allergies Allergy unknown) (Verified 06/07/22 09:14) (unknown) (no (unknown) (unknown) Nodes and (units (unkn own) date) vessels:? No unknown) pelvic or inguinal adenopathy by size criteria.? Iliac (unknown) (no (unknown) (unknown) Number: (units (unkno wn) date) [id number] ?? unknown) (unknown) (no (unknown) (unknown) Office Procedure (units (unknown) date) unknown) (unknown) (no (unknown) (unknown) Office (units (unkno wn) date) Procedures unknown) (unknown) (no (unknown) (unknown) Ordering (units (unkno wn) date) Provider: unknown) Demi Otto MD (unknown) (no (unknown) (unknown) Orders (units (unkno wn) date) unknown) (unknown) (no (unknown) (unknown) Orders: (units (unkno wn) date) unknown) (unknown) (no (unknown) (unknown) PAP with hr HPV (units (unknown) date) 06/07/22 Z12.4 - unknown) Encounter for screening for malignant neoplasm (unknown) (no (unknown) (unknown) PFSH (units (unkno wn) date) unknown) (unknown) (no (unknown) (unknown) PROCEDURE:? MR (units (unknown) date) PELVIS WO/W CON unknown) (unknown) (no (unknown) (unknown) Pain started (units (u nknown) date) nearly 1 year unknown) ago. Last visit she reported frequently the (unknown) (no (unknown) (unknown) Painful (units (unkno wn) date) menstrual periods unknown) (unknown) (no (unknown) (unknown) Patient: (units (unkno wn) date) Clemente,Cory unknown) B MR#: (unknown) (no (unknown) (unknown) Patient: (units (unkno wn) date) Clemente,Cory unknown) B (unknown) (no (unknown) (unknown) Pelvic US (units (unkn own) date) 12/28/21 at unknown) [place]? showed an anteverted normal size uterus measuring (unknown) (no (unknown) (unknown) Position Sitting (units (unknown) date) unknown) (unknown) (no (unknown) (unknown) Post-contrast (units (u nknown) date) axial or coronal unknown) VIBE/2-D FLASH with fat saturation from the iliac (unknown) (no (unknown) (unknown) Test (units (unknown) date) Performed: No unknown) (has Nexplanon in place) (unknown) (no (unknown) (unknown) Procedure: MR (units ( unknown) date) pelvis wo/w con unknown) (unknown) (no (unknown) (unknown) Reason For Visit (units (unknown) date) unknown) (unknown) (no (unknown) (unknown) Severe obesity (units (unknown) date) (BMI >= 40) unknown) (unknown) (no (unknown) (unknown) Shortness of (units (u nknown) date) breath unknown) (unknown) (no (unknown) (unknown) Signed By: (units (unk nown) date) unknown) (unknown) (no (unknown) (unknown) Sleep apnea (units (un known) date) () unknown) (unknown) (no (unknown) (unknown) Smoking Status: (units (unknown) date) Never smoker unknown) (unknown) (no (unknown) (unknown) Social History (units (unknown) date) unknown) (unknown) (no (unknown) (unknown) Soft tissues:? (units (unknown) date) 4.0 cm ovoid unknown) region of intrinsic T1 hyperintensity present along (unknown) (no (unknown) (unknown) Speculum placed: (units (unknown) date) Yes unknown) (unknown) (no (unknown) (unknown) Status post (units (un known) date) right foot unknown) surgery (-2000) (unknown) (no (unknown) (unknown) Surgical History (units (unknown) date) (Updated 01/31/22 unknown) @ 20:23 by Radha Toledo) (unknown) (no (unknown) (unknown) TECHNIQUE:? (units (un known) date) unknown) (unknown) (no (unknown) (unknown) Tenaculum (units (unkn own) date) placed: Yes unknown) (unknown) (no (unknown) (unknown) This note may (units ( unknown) date) have been all or unknown) partially generated using voice recognition (unknown) (no (unknown) (unknown) Tobacco + (units (unkn own) date) Substance Use unknown) (unknown) (no (unknown) (unknown) Tobacco Status (units (unknown) date) unknown) (unknown) (no (unknown) (unknown) Urinary system:? (units (unknown) date) Bladder wall is unknown) normal in thickness.? Distal ureters are non (unknown) (no (unknown) (unknown) Uterus:? Uterus (units (unknown) date) is normal in unknown) size.? Endometrium is normal in thickness. Arcuate (unknown) (no (unknown) (unknown) Visit Reasons: (units (unknown) date) IUD unknown) placement/nexplan on removal*NOAUTHREQ D (unknown) (no (unknown) (unknown) Vitals (units (unkno wn) date) unknown) (unknown) (no (unknown) (unknown) Weight 288 lb (units ( unknown) date) unknown) (unknown) (no (unknown) (unknown) [History (units (unkno wn) date) Confirmed unknown) 06/07/22] (unknown) (no (unknown) (unknown) abdominal/pelvic (units (unknown) date) wall associated unknown) with the lower rectus musculature.? This is a (unknown) (no (unknown) (unknown) and in general (units (unknown) date) would prefer unknown) start with conservative treatment. Pain not severe. (unknown) (no (unknown) (unknown) are not (units (unkno wn) date) excludable.? unknown) (unknown) (no (unknown) (unknown) area in anterior (units (unknown) date) rectus muscles unknown) after correlation with the prior CT scan with (unknown) (no (unknown) (unknown) attempted (units (unkn own) date) treatment of the unknown) uterine adenomyosis which appears to be cause of her (unknown) (no (unknown) (unknown) bowel gas. (units (unk nown) date) unknown) (unknown) (no (unknown) (unknown) buprenorphine 8 (units (unknown) date) mg-naloxone 2 mg unknown) sublingual film (Suboxone) 1 film sublingual (unknown) (no (unknown) (unknown) bupropion HCl (units ( unknown) date) 300 mg 24 hr unknown) tablet, extended release 300 mg PO DAILY 01/03/22 (unknown) (no (unknown) (unknown) considered.? 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 (units (un known) date) unknown) (unknown) (no (unknown) (unknown) endometriosis (units (u nknown) date) elsewhere within unknown) the pelvis identified.? Other etiologies for this (unknown) (no (unknown) (unknown) endometriosis in (units (unknown) date) the absence of unknown) prior surgery is uncommon but possible.? No (unknown) (no (unknown) (unknown) evidence of (units (un known) date) unknown) (unknown) (no (unknown) (unknown) finding (units (unkno wn) date) unknown) (unknown) (no (unknown) (unknown) have occurred. (units (unknown) date) If there are any unknown) questions, please contact the Medical Records (unknown) (no (unknown) (unknown) having monthly (units (unknown) date) menses with unknown) Nexplanon. She is having worse menstrual cramps with (unknown) (no (unknown) (unknown) her last visit, (units (unknown) date) pelvic MRI showed unknown) uterine adenomyosis. See report below. 4 cm (unknown) (no (unknown) (unknown) image 23 and (units (u nknown) date) series 14, image unknown) 74). (unknown) (no (unknown) (unknown) last pap 1 year (units (unknown) date) hx abnormal unknown) (unknown) (no (unknown) (unknown) lesions.? (units (unkn own) date) unknown) (unknown) (no (unknown) (unknown) loops are normal (units (unknown) date) in caliber.? unknown) (unknown) (no (unknown) (unknown) mass. (units (unkno wn) date) unknown) (unknown) (no (unknown) (unknown) may occur. (units (unk nown) date) Occasional unknown) wrong-word or 'sound-alike' substitutions may have (unknown) (no (unknown) (unknown) menses but also (units (unknown) date) having similar unknown) discomfort without menstrual bleeding. Recent (unknown) (no (unknown) (unknown) menses sometimes (units (unknown) date) heavier. She is unknown) not certain she is finished with childbearing (unknown) (no (unknown) (unknown) midline anterior (units (unknown) date) abdominal/pelvic unknown) wall / lower rectus musculature (for example (unknown) (no (unknown) (unknown) midline uterine (units (unknown) date) fundal fibroid, unknown) submucosal, measuring 1.2 cm.? Right ovary not (unknown) (no (unknown) (unknown) millimeters.? (units ( unknown) date) Multiple unknown) Nabothian cysts are present.? (unknown) (no (unknown) (unknown) nonspecific (units (un known) date) finding.? unknown) Correlation with any prior history of or other (unknown) (no (unknown) (unknown) norgestimate (units (u nknown) date) 0.25 mg-ethinyl unknown) estradiol 35 mcg tablet (Sprintec (28)) 1 tab PO (unknown) (no (unknown) (unknown) normal in size.? (units (unknown) date) unknown) (unknown) (no (unknown) (unknown) notices pain is (units (unknown) date) mostly in the unknown) midline. She has a Nexplanon in place and is (unknown) (no (unknown) (unknown) occurred due to (units (unknown) date) the inherent unknown) limitations of voice recognition software. Please (unknown) (no (unknown) (unknown) of cervix, (units (unk nown) date) Z86.19 - Personal unknown) history of other infectious and parasitic diseases (unknown) (no (unknown) (unknown) oxycodone 5 mg (units (unknown) date) PO Q12H PRN 5 unknown) tabs 0RF pain, severe (unknown) (no (unknown) (unknown) oxycodone 5 mg (units (unknown) date) tablet 5 mg PO unknown) Q12H PRN pain, severe #5 tabs 06/07/22 [Rx (unknown) (no (unknown) (unknown) pelvic pain. (units (u nknown) date) unknown) (unknown) (no (unknown) (unknown) performed.? (units (un known) date) unknown) (unknown) (no (unknown) (unknown) provider will do (units (unknown) date) Nexplanon removal unknown) since I have not done Nexplanons. (unknown) (no (unknown) (unknown) pt here for IUD (units (unknown) date) placement. unknown) (unknown) (no (unknown) (unknown) radiologist, (units (u nknown) date) felt to be scar unknown) tissue from her and not an endometrial (unknown) (no (unknown) (unknown) read the note (units ( unknown) date) carefully and unknown) recognize, using context, where these substitutions (unknown) (no (unknown) (unknown) relationship to (units (unknown) date) the patient's unknown) menstrual cycle, could also be helpful.? Abdominal (unknown) (no (unknown) (unknown) saturation (units (unk nown) date) unknown) (unknown) (no (unknown) (unknown) seen.? No free (units (unknown) date) fluid. ? Reported unknown) limited evaluation due to marked overlying (unknown) (no (unknown) (unknown) series 10, (units (unk nown) date) unknown) (unknown) (no (unknown) (unknown) small bowel (units (un known) date) unknown) (unknown) (no (unknown) (unknown) software. 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 Since last visit she (unknown) (no (unknown) (unknown) surgery in (units (unk nown) date) unknown) (unknown) (no (unknown) (unknown) the uterus.? (units (u nknown) date) Sagittal or axial unknown) dynamic VIBE during administration of contrast.? (unknown) (no (unknown) (unknown) the (units (unkno wn) date) unknown) (unknown) (no (unknown) (unknown) this area may be (units (unknown) date) helpful as if unknown) performed previously, scar endometriosis could be (unknown) (no (unknown) (unknown) through the (units (unk nown) date) pelvis.? Optional unknown) long- and short-axis uterine nonbreath-hold T2 FSE (unknown) (no (unknown) (unknown) through (units (unkno wn) date) unknown) (unknown) (no (unknown) (unknown) to the (units (unkno wn) date) symphysis.? unknown) Optional diffusion weighted imaging and ADC may be (unknown) (no (unknown) (unknown) trazodone 50 mg (units (unknown) date) tablet 50 mg PO unknown) BEDTIME PRN sleep 06/29/22 [History Confirmed (unknown) (no (unknown) (unknown) treatment of (units (u nknown) date) uterine unknown) adenomyosis as likely cause of chronic pelvic pain. Since (unknown) (no (unknown) (unknown) up to 14 (units (unkno wn) date) unknown) (unknown) (no (unknown) (unknown) uterus (units (unkno wn) date) unknown) (unknown) (no (unknown) (unknown) variant anatomy.? (units (unknown) date) Junctional zone unknown) is ill-defined and appears thickened measuring (unknown) (no (unknown) (unknown) vessels are (units (un known) date) unknown) (unknown) (no (unknown) (unknown) visualized.? (units (u nknown) date) Left ovary with a unknown) 3.1 cm left ovarian cyst,? no adnexal masses (unknown) (no (unknown) (unknown) wall (units (unkno wn) date) unknown) Result panel 34 (unknown) (no (unknown) (unknown) (no value) (units (unk nown) date) unknown) (unknown) (no (unknown) (unknown) 09:14 (units (unkno wn) date) unknown) (unknown) (no (unknown) (unknown) 1. Uterine (units (unk nown) date) findings unknown) suggestive of adenomyosis. (unknown) (no (unknown) (unknown) 06/07/22 (units (unkno wn) date) unknown) (unknown) (no (unknown) (unknown) 06/07/22] (units (unkn own) date) unknown) (unknown) (no (unknown) (unknown) 13 (units (unkno wn) date) unknown) (unknown) (no (unknown) (unknown) 2. Unremarkable (units (unknown) date) appearance of the unknown) ovaries. (unknown) (no (unknown) (unknown) 3. A 4 cm ovoid (units (unknown) date) region of unknown) abnormal signal is present at the anterior midline (unknown) (no (unknown) (unknown) 36 yo (units (unk nown) date) female presents unknown) for Mirena IUD placement for attempted conservative (unknown) (no (unknown) (unknown) 8.3 x 4.9 x 6.1 (units (unknown) date) cm.? Myometrium unknown) appear coarse and heterogeneous, possible (unknown) (no (unknown) (unknown) ? (units (unkno wn) date) unknown) (unknown) (no (unknown) (unknown) ADHD (-1998) (units (u nknown) date) unknown) (unknown) (no (unknown) (unknown) Abdominal pain (units (unknown) date) unknown) (unknown) (no (unknown) (unknown) Abnormal Pap (units (u nknown) date) smear of cervix unknown) (unknown) (no (unknown) (unknown) Abnormal chest (units (unknown) date) xray () unknown) (unknown) (no (unknown) (unknown) Acct:[id number] (units (unknown) date) unknown) (unknown) (no (unknown) (unknown) Adnexa:? Both (units ( unknown) date) ovaries are unknown) normal in size, without suspicious cystic or solid (unknown) (no (unknown) (unknown) Age/Sex: 36 / F (units (unknown) date) Date of Service: unknown) (unknown) (no (unknown) (unknown) Age/Sex: 36 / F (units (unknown) date) unknown) (unknown) (no (unknown) (unknown) Allergies (units (unkn own) date) unknown) (unknown) (no (unknown) (unknown) [place], [place] (units ( unknown) date) [id number] unknown) (unknown) (no (unknown) (unknown) Anesthesia (units (unk nown) date) unknown) (unknown) (no (unknown) (unknown) Anxiety (units (unkno wn) date) unknown) (unknown) (no (unknown) (unknown) Assessment + (units (u nknown) date) Plan unknown) (unknown) (no (unknown) (unknown) Asthma (units (unkno wn) date) unknown) (unknown) (no (unknown) (unknown) Attending Dr: (units ( unknown) date) Demi Santos unknown) Fam RIVERA (unknown) (no (unknown) (unknown) BID 01/03/22 (units (u nknown) date) [History unknown) Confirmed 06/07/22] (unknown) (no (unknown) (unknown) BMI 46.5 (units (unkno wn) date) unknown) (unknown) (no (unknown) (unknown) BP 126/76 (units (unkn own) date) unknown) (unknown) (no (unknown) (unknown) Blood Pressure (units (unknown) date) Location Rt unknown) brachial (unknown) (no (unknown) (unknown) Bones:? Marrow (units (unknown) date) demonstrates unknown) normal overall signal.? (unknown) (no (unknown) (unknown) Bowel and (units (unkn own) date) peritoneum:? No unknown) pathologic free pelvic fluid.? Inferior colon and (unknown) (no (unknown) (unknown) COMPARISON:? (units (u nknown) date) None. unknown) (unknown) (no (unknown) (unknown) Carpal tunnel (units ( unknown) date) syndrome () unknown) (unknown) (no (unknown) (unknown) Cervical cancer (units (unknown) date) () unknown) (unknown) (no (unknown) (unknown) Cervix cleaned (units (unknown) date) with Betadine: unknown) Yes (unknown) (no (unknown) (unknown) [place]-Jldqm-Bj (units (unknown) date) oth disease unknown) (unknown) (no (unknown) (unknown) Chief Complaint (units (unknown) date) unknown) (unknown) (no (unknown) (unknown) Chief Complaint: (units (unknown) date) Mirena IUD unknown) placement (unknown) (no (unknown) (unknown) Chlamydia (units (unkn own) date) () unknown) (unknown) (no (unknown) (unknown) Chronic insomnia (units (unknown) date) unknown) (unknown) (no (unknown) (unknown) Chronic low back (units (unknown) date) pain () unknown) (unknown) (no (unknown) (unknown) Chronic, (units (unkno wn) date) continuous use of unknown) opioids (unknown) (no (unknown) (unknown) Confirmed (units (unkn own) date) 06/07/22] unknown) (unknown) (no (unknown) (unknown) Consent Form (units (u nknown) date) Signed: Yes unknown) (unknown) (no (unknown) (unknown) Coronal HASTE, (units (unknown) date) sagittal unknown) breath-hold T2 FSE; axial T1 FSE with and without fat (unknown) (no (unknown) (unknown) Culture for (units (un known) date) GC/CT obtained: unknown) No (unknown) (no (unknown) (unknown) DAILY #28 tabs (units (unknown) date) 02/01/22 [Rx unknown) Confirmed 06/07/22] (unknown) (no (unknown) (unknown) : 1985 (units (unknown) date) Acct:[id number] unknown) (unknown) (no (unknown) (unknown) : 1985 (units (unknown) date) unknown) (unknown) (no (unknown) (unknown) Date of Service: (units (unknown) date) 04/19/22 unknown) (unknown) (no (unknown) (unknown) Depression (units (unk nown) date) unknown) (unknown) (no (unknown) (unknown) Dept at (units (unkno wn) date) . unknown) (unknown) (no (unknown) (unknown) Details: (units (unkno wn) date) unknown) (unknown) (no (unknown) (unknown) Dilation Cervix: (units (unknown) date) Yes unknown) (unknown) (no (unknown) (unknown) Diverticular (units (u nknown) date) disease (-2020) unknown) (unknown) (no (unknown) (unknown) Documented By: (units (unknown) date) Demi Otto unknown) Danielle RIVERA 06/07/22 09 (unknown) (no (unknown) (unknown) Draft (units (unkno wn) date) unknown) (unknown) (no (unknown) (unknown) Explained (units (unkn own) date) Risks/Benefits/Al unknown) ternatives: Yes (unknown) (no (unknown) (unknown) FINDINGS:? (units (unk nown) date) unknown) (unknown) (no (unknown) (unknown) Family History (units (unknown) date) (Updated 01/31/22 unknown) @ 20:35 by Radha Toledo) (unknown) (no (unknown) (unknown) Father History (units (unknown) date) of heart disease unknown) (unknown) (no (unknown) (unknown) Fibromyalgia (units (u nknown) date) (-2016) unknown) (unknown) (no (unknown) (unknown) [facility] unknown) (unknown) (no (unknown) (unknown) Gout (-2017) (units (u nknown) date) unknown) (unknown) (no (unknown) (unknown) Gynecology Visit (units (unknown) date) unknown) (unknown) (no (unknown) (unknown) H/O LEEP (units (unkno wn) date) unknown) (unknown) (no (unknown) (unknown) H/O laparoscopy (units (unknown) date) () unknown) (unknown) (no (unknown) (unknown) HPI (units (unkno wn) date) unknown) (unknown) (no (unknown) (unknown) Height 5 ft 6 in (units (unknown) date) unknown) (unknown) (no (unknown) (unknown) Herpes () (units (unknown) date) unknown) (unknown) (no (unknown) (unknown) History of (units (unk nown) date) unknown) (-08/08/04) (unknown) (no (unknown) (unknown) Human papilloma (units (unknown) date) virus () unknown) (unknown) (no (unknown) (unknown) Hyperlipidemia (units (unknown) date) unknown) (unknown) (no (unknown) (unknown) Hypertension (units (u nknown) date) unknown) (unknown) (no (unknown) (unknown) IMPRESSION:? (units (u nknown) date) unknown) (unknown) (no (unknown) (unknown) INDICATIONS:? (units ( unknown) date) pelvic cramping unknown) (unknown) (no (unknown) (unknown) IUD- Insertion (units (unknown) date) unknown) (unknown) (no (unknown) (unknown) Image quality:? (units (unknown) date) Adequate.? unknown) (unknown) (no (unknown) (unknown) Intake Note: (units (u nknown) date) unknown) (unknown) (no (unknown) (unknown) Intake performed (units (unknown) date) by: unknown) Abby Tate (unknown) (no (unknown) (unknown) Intake (units (unkno wn) date) unknown) (unknown) (no (unknown) (unknown) Intake- Clincial (units (unknown) date) Staff unknown) (unknown) (no (unknown) (unknown) Irritable bowel (units (unknown) date) syndrome () unknown) (unknown) (no (unknown) (unknown) Left ovarian (units (u nknown) date) cyst () unknown) (unknown) (no (unknown) (unknown) Loc: [facility] (units (unkno wn) date) unknown) (unknown) (no (unknown) (unknown) Loc: MRI (units (unkno wn) date) unknown) (unknown) (no (unknown) (unknown) [id number] (units (unk nown) date) unknown) (unknown) (no (unknown) (unknown) MR#: [id number] (units (unknown) date) unknown) (unknown) (no (unknown) (unknown) MRI 04/19/22: (units ( unknown) date) unknown) (unknown) (no (unknown) (unknown) Medical History (units (unknown) date) (Updated 01/31/22 unknown) @ 20:23 by Radha Toledo) (unknown) (no (unknown) (unknown) Medications (units (un known) date) unknown) (unknown) (no (unknown) (unknown) Medications: (units (u nknown) date) unknown) (unknown) (no (unknown) (unknown) Mental health (units ( unknown) date) problem unknown) (unknown) (no (unknown) (unknown) Migraines (units (unkn own) date) (-2003) unknown) (unknown) (no (unknown) (unknown) Mother Diabetes (units (unknown) date) mellitus unknown) (unknown) (no (unknown) (unknown) New (units (unkno wn) date) unknown) (unknown) (no (unknown) (unknown) Nexplanon (units (unkn own) date) removal since I unknown) have not done Nexplanons. (unknown) (no (unknown) (unknown) No Known Drug (units ( unknown) date) Allergies Allergy unknown) (Verified 06/07/22 09:14) (unknown) (no (unknown) (unknown) Nodes and (units (unkn own) date) vessels:? No unknown) pelvic or inguinal adenopathy by size criteria.? Iliac (unknown) (no (unknown) (unknown) Number: (units (unkno wn) date) [id number] ?? unknown) (unknown) (no (unknown) (unknown) Office Procedure (units (unknown) date) unknown) (unknown) (no (unknown) (unknown) Office (units (unkno wn) date) Procedures unknown) (unknown) (no (unknown) (unknown) Ordering (units (unkno wn) date) Provider: unknown) Demi Otto MD (unknown) (no (unknown) (unknown) Orders (units (unkno wn) date) unknown) (unknown) (no (unknown) (unknown) Orders: (units (unkno wn) date) unknown) (unknown) (no (unknown) (unknown) PAP with hr HPV (units (unknown) date) 06/07/22 Z12.4 - unknown) Encounter for screening for malignant neoplasm (unknown) (no (unknown) (unknown) PFSH (units (unkno wn) date) unknown) (unknown) (no (unknown) (unknown) PROCEDURE:? MR (units (unknown) date) PELVIS WO/W CON unknown) (unknown) (no (unknown) (unknown) Pain started (units (u nknown) date) nearly 1 year unknown) ago. Last visit she reported frequently the (unknown) (no (unknown) (unknown) Painful (units (unkno wn) date) menstrual periods unknown) (unknown) (no (unknown) (unknown) Patient: (units (unkno wn) date) Clemente,Cory unknown) B MR#: (unknown) (no (unknown) (unknown) Patient: (units (unkno wn) date) Clemente,Cory unknown) B (unknown) (no (unknown) (unknown) Pelvic US (units (unkn own) date) 12/28/21 at unknown) [place]? showed an anteverted normal size uterus measuring (unknown) (no (unknown) (unknown) Position Sitting (units (unknown) date) unknown) (unknown) (no (unknown) (unknown) Post-contrast (units (u nknown) date) axial or coronal unknown) VIBE/2-D FLASH with fat saturation from the iliac (unknown) (no (unknown) (unknown) Test (units (unknown) date) Performed: No unknown) (has Nexplanon in place) (unknown) (no (unknown) (unknown) Procedure: MR (units ( unknown) date) pelvis wo/w con unknown) (unknown) (no (unknown) (unknown) Radiology: (units (unk nown) date) unknown) (unknown) (no (unknown) (unknown) Reason For Visit (units (unknown) date) unknown) (unknown) (no (unknown) (unknown) Severe obesity (units (unknown) date) (BMI >= 40) unknown) (unknown) (no (unknown) (unknown) She is not (units (unkn own) date) certain she is unknown) finished with childbearing and in general would prefer (unknown) (no (unknown) (unknown) Shortness of (units (u nknown) date) breath unknown) (unknown) (no (unknown) (unknown) Signed By: (units (unk nown) date) unknown) (unknown) (no (unknown) (unknown) Sleep apnea (units (un known) date) () unknown) (unknown) (no (unknown) (unknown) Smoking Status: (units (unknown) date) Never smoker unknown) (unknown) (no (unknown) (unknown) Social History (units (unknown) date) unknown) (unknown) (no (unknown) (unknown) Soft tissues:? (units (unknown) date) 4.0 cm ovoid unknown) region of intrinsic T1 hyperintensity present along (unknown) (no (unknown) (unknown) Speculum placed: (units (unknown) date) Yes unknown) (unknown) (no (unknown) (unknown) Status post (units (un known) date) right foot unknown) surgery (-2000) (unknown) (no (unknown) (unknown) Surgical History (units (unknown) date) (Updated 01/31/22 unknown) @ 20:23 by Radha Toledo) (unknown) (no (unknown) (unknown) TECHNIQUE:? (units (un known) date) unknown) (unknown) (no (unknown) (unknown) Tenaculum (units (unkn own) date) placed: Yes unknown) (unknown) (no (unknown) (unknown) This note may (units ( unknown) date) have been all or unknown) partially generated using voice recognition (unknown) (no (unknown) (unknown) Tobacco + (units (unkn own) date) Substance Use unknown) (unknown) (no (unknown) (unknown) Tobacco Status (units (unknown) date) unknown) (unknown) (no (unknown) (unknown) Urinary system:? (units (unknown) date) Bladder wall is unknown) normal in thickness.? Distal ureters are non (unknown) (no (unknown) (unknown) Uterus:? Uterus (units (unknown) date) is normal in unknown) size.? Endometrium is normal in thickness. Arcuate (unknown) (no (unknown) (unknown) Visit Reasons: (units (unknown) date) IUD unknown) placement/nexplan on removal*NOAUTHREQ D (unknown) (no (unknown) (unknown) Vitals (units (unkno wn) date) unknown) (unknown) (no (unknown) (unknown) Weight 288 lb (units ( unknown) date) unknown) (unknown) (no (unknown) (unknown) [History (units (unkno wn) date) Confirmed unknown) 06/07/22] (unknown) (no (unknown) (unknown) abdominal/pelvic (units (unknown) date) wall associated unknown) with the lower rectus musculature.? This is a (unknown) (no (unknown) (unknown) are not (units (unkno wn) date) excludable.? unknown) (unknown) (no (unknown) (unknown) area in anterior (units (unknown) date) rectus muscles unknown) after correlation with the prior CT scan with (unknown) (no (unknown) (unknown) bowel gas. (units (unk nown) date) unknown) (unknown) (no (unknown) (unknown) buprenorphine 8 (units (unknown) date) mg-naloxone 2 mg unknown) sublingual film (Suboxone) 1 film sublingual (unknown) (no (unknown) (unknown) bupropion HCl (units ( unknown) date) 300 mg 24 hr unknown) tablet, extended release 300 mg PO DAILY 01/03/22 (unknown) (no (unknown) (unknown) considered.? (units (u nknown) date) Correlation with unknown) the patient's symptoms, such as location of (unknown) (no (unknown) (unknown) cramping and (units (u nknown) date) unknown) (unknown) (no (unknown) (unknown) crests (units (unkno wn) date) unknown) (unknown) (no (unknown) (unknown) despite the (units (un known) date) Nexplanon. 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 (units (un known) date) unknown) (unknown) (no (unknown) (unknown) endometriosis (units (u nknown) date) elsewhere within unknown) the pelvis identified.? Other etiologies for this (unknown) (no (unknown) (unknown) endometriosis in (units (unknown) date) the absence of unknown) prior surgery is uncommon but possible.? No (unknown) (no (unknown) (unknown) evidence of (units (un known) date) unknown) (unknown) (no (unknown) (unknown) finding (units (unkno wn) date) unknown) (unknown) (no (unknown) (unknown) have occurred. (units (unknown) date) If there are any unknown) questions, please contact the Medical Records (unknown) (no (unknown) (unknown) having monthly (units (unknown) date) menses with unknown) Nexplanon. She is having worse menstrual cramps with (unknown) (no (unknown) (unknown) her last visit, (units (unknown) date) pelvic MRI showed unknown) uterine adenomyosis. See report below. 4 cm (unknown) (no (unknown) (unknown) image 23 and (units (u nknown) date) series 14, image unknown) 74). (unknown) (no (unknown) (unknown) last pap 1 year (units (unknown) date) hx abnormal unknown) (unknown) (no (unknown) (unknown) lesions.? (units (unkn own) date) unknown) (unknown) (no (unknown) (unknown) loops are normal (units (unknown) date) in caliber.? unknown) (unknown) (no (unknown) (unknown) mass. (units (unkno wn) date) unknown) (unknown) (no (unknown) (unknown) may occur. (units (unk nown) date) Occasional unknown) wrong-word or 'sound-alike' substitutions may have (unknown) (no (unknown) (unknown) menses but also (units (unknown) date) having similar unknown) discomfort without menstrual bleeding. Recent (unknown) (no (unknown) (unknown) menses sometimes (units (unknown) date) heavier. unknown) (unknown) (no (unknown) (unknown) midline anterior (units (unknown) date) abdominal/pelvic unknown) wall / lower rectus musculature (for example (unknown) (no (unknown) (unknown) midline uterine (units (unknown) date) fundal fibroid, unknown) submucosal, measuring 1.2 cm.? Right ovary not (unknown) (no (unknown) (unknown) millimeters.? (units ( unknown) date) Multiple unknown) Nabothian cysts are present.? (unknown) (no (unknown) (unknown) nonspecific (units (un known) date) finding.? unknown) Correlation with any prior history of or other (unknown) (no (unknown) (unknown) norgestimate (units (u nknown) date) 0.25 mg-ethinyl unknown) estradiol 35 mcg tablet (Sprintec (28)) 1 tab PO (unknown) (no (unknown) (unknown) normal in size.? (units (unknown) date) unknown) (unknown) (no (unknown) (unknown) notices pain is (units (unknown) date) mostly in the unknown) midline. She has a Nexplanon in place and is (unknown) (no (unknown) (unknown) occurred due to (units (unknown) date) the inherent unknown) limitations of voice recognition software. Please (unknown) (no (unknown) (unknown) of MRI showing (units (unknown) date) adenomyosis, and unknown) treatment options discussed. She has pain (unknown) (no (unknown) (unknown) of cervix, (units (unk nown) date) Z86.19 - Personal unknown) history of other infectious and parasitic diseases (unknown) (no (unknown) (unknown) oxycodone 5 mg (units (unknown) date) PO Q12H PRN 5 unknown) tabs 0RF pain, severe (unknown) (no (unknown) (unknown) oxycodone 5 mg (units (unknown) date) tablet 5 mg PO unknown) Q12H PRN pain, severe #5 tabs 06/07/22 [Rx (unknown) (no (unknown) (unknown) performed.? (units (un known) date) unknown) (unknown) (no (unknown) (unknown) presents for (units (u nknown) date) Mirena If IUD unknown) inserted with success, then another provider will do (unknown) (no (unknown) (unknown) pt here for IUD (units (unknown) date) placement. unknown) (unknown) (no (unknown) (unknown) radiologist, (units (u nknown) date) felt to be scar unknown) tissue from her and not an endometrial (unknown) (no (unknown) (unknown) read the note (units ( unknown) date) carefully and unknown) recognize, using context, where these substitutions (unknown) (no (unknown) (unknown) relationship to (units (unknown) date) the patient's unknown) menstrual cycle, could also be helpful.? Abdominal (unknown) (no (unknown) (unknown) saturation (units (unk nown) date) unknown) (unknown) (no (unknown) (unknown) seen.? No free (units (unknown) date) fluid. ? Reported unknown) limited evaluation due to marked overlying (unknown) (no (unknown) (unknown) series 10, (units (unk nown) date) unknown) (unknown) (no (unknown) (unknown) small bowel (units (un known) date) unknown) (unknown) (no (unknown) (unknown) software. 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 Since last visit she (unknown) (no (unknown) (unknown) start with (units (unk n) date) conservative unknown) treatment. Pain not severe. After discussion by phone (unknown) (no (unknown) (unknown) surgery in (units (unk nown) date) unknown) (unknown) (no (unknown) (unknown) the uterus.? (units (u nknown) date) Sagittal or axial unknown) dynamic VIBE during administration of contrast.? (unknown) (no (unknown) (unknown) the (units (unkno wn) date) unknown) (unknown) (no (unknown) (unknown) this area may be (units (unknown) date) helpful as if unknown) performed previously, scar endometriosis could be (unknown) (no (unknown) (unknown) through the (units (unk n) ) pelvis.? Optional unknown) long- and short-axis uterine nonbreath-hold T2 FSE (unknown) (no (unknown) (unknown) through (units (o wn) date) unknown) (unknown) (no (unknown) (unknown) to the (units (o wn) ) symphysis.? unknown) Optional diffusion weighted imaging and ADC may be (unknown) (no (unknown) (unknown) trazodone 50 mg (units (unknown) date) tablet 50 mg PO unknown) BEDTIME PRN sleep 01/03/22 [History Confirmed (unknown) (no (unknown) (unknown) treatment of (units (u nknown) date) uterine unknown) adenomyosis as likely cause of chronic pelvic pain. Since (unknown) (no (unknown) (unknown) up to 14 (units (o wn) date) unknown) (unknown) (no (unknown) (unknown) uterus (units (o wn) date) unknown) (unknown) (no (unknown) (unknown) variant anatomy.? (units (unknown) date) Junctional zone unknown) is ill-defined and appears thickened measuring (unknown) (no (unknown) (unknown) vessels are (units (un known) date) unknown) (unknown) (no (unknown) (unknown) visualized.? (units (u nknown) date) Left ovary with a unknown) 3.1 cm left ovarian cyst,? no adnexal masses (unknown) (no (unknown) (unknown) wall (units (unkno wn) date) unknown) (unknown) (no (unknown) (unknown) would be (units (unkno wn) date) progesterone IUD. unknown) She desires a trial of a progesterone IUD and Result panel 35 (unknown) (no (unknown) (unknown) (no value) (units (unk nown) date) unknown) (unknown) (no (unknown) (unknown) (1) Chronic (units (un known) date) pelvic pain in unknown) female: (unknown) (no (unknown) (unknown) (2) Adenomyosis (units (unknown) date) of the uterus: unknown) (unknown) (no (unknown) (unknown) 09:14 (units (unkno wn) date) unknown) (unknown) (no (unknown) (unknown) 1. Uterine (units (unk nown) date) findings unknown) suggestive of adenomyosis. (unknown) (no (unknown) (unknown) 06/07/22 (units (unkno wn) date) unknown) (unknown) (no (unknown) (unknown) 06/07/22] (units (unkn own) date) unknown) (unknown) (no (unknown) (unknown) 06/28/22 1451 (units ( unknown) date) unknown) (unknown) (no (unknown) (unknown) 13 (units (unkno wn) date) unknown) (unknown) (no (unknown) (unknown) 2. Unremarkable (units (unknown) date) appearance of the unknown) ovaries. (unknown) (no (unknown) (unknown) 3. A 4 cm ovoid (units (unknown) date) region of unknown) abnormal signal is present at the anterior midline (unknown) (no (unknown) (unknown) 36 yo (units (unk nown) date) female presents unknown) for Mirena IUD placement for attempted conservative (unknown) (no (unknown) (unknown) 8.3 x 4.9 x 6.1 (units (unknown) date) cm.? Myometrium unknown) appear coarse and heterogeneous, possible (unknown) (no (unknown) (unknown) ? (units (unkno wn) date) unknown) (unknown) (no (unknown) (unknown) ADHD (-1998) (units (u nknown) date) unknown) (unknown) (no (unknown) (unknown) Abdominal pain (units (unknown) date) unknown) (unknown) (no (unknown) (unknown) Abnormal Pap (units (u nknown) date) smear of cervix unknown) (unknown) (no (unknown) (unknown) Abnormal chest (units (unknown) date) xray (-2014) unknown) (unknown) (no (unknown) (unknown) Acct:[id number] (units (unknown) date) unknown) (unknown) (no (unknown) (unknown) Adnexa:? Both (units ( unknown) date) ovaries are unknown) normal in size, without suspicious cystic or solid (unknown) (no (unknown) (unknown) Age/Sex: 36 / F (units (unknown) date) Date of Service: unknown) (unknown) (no (unknown) (unknown) Age/Sex: 36 / F (units (unknown) date) unknown) (unknown) (no (unknown) (unknown) Allergies (units (unkn own) date) unknown) (unknown) (no (unknown) (unknown) [place], [place] (units ( unknown) date) [id number] unknown) (unknown) (no (unknown) (unknown) Anesthesia (units (unk nown) date) unknown) (unknown) (no (unknown) (unknown) Anxiety (units (unkno wn) date) unknown) (unknown) (no (unknown) (unknown) Assessment + (units (u nknown) date) Plan unknown) (unknown) (no (unknown) (unknown) Asthma (units (unkno wn) date) unknown) (unknown) (no (unknown) (unknown) Attending Dr: (units ( unknown) date) Demi Santos unknown) Fam RIVERA (unknown) (no (unknown) (unknown) BID 01/03/22 (units (u nknown) date) [History unknown) Confirmed 06/07/22] (unknown) (no (unknown) (unknown) BMI 46.5 (units (unkno wn) date) unknown) (unknown) (no (unknown) (unknown) BP 126/76 (units (unkn own) date) unknown) (unknown) (no (unknown) (unknown) Blood Pressure (units (unknown) date) Location Rt unknown) brachial (unknown) (no (unknown) (unknown) Bones:? Marrow (units (unknown) date) demonstrates unknown) normal overall signal.? (unknown) (no (unknown) (unknown) Bowel and (units (unkn own) date) peritoneum:? No unknown) pathologic free pelvic fluid.? Inferior colon and (unknown) (no (unknown) (unknown) COMPARISON:? (units (u nknown) date) None. unknown) (unknown) (no (unknown) (unknown) Carpal tunnel (units ( unknown) date) syndrome () unknown) (unknown) (no (unknown) (unknown) Cervical cancer (units (unknown) date) () unknown) (unknown) (no (unknown) (unknown) Cervix cleaned (units (unknown) date) with Betadine: unknown) Yes (unknown) (no (unknown) (unknown) [id number] (units (unknown) date) oth disease unknown) (unknown) (no (unknown) (unknown) Chief Complaint (units (unknown) date) unknown) (unknown) (no (unknown) (unknown) Chief Complaint: (units (unknown) date) Mirena IUD unknown) placement (unknown) (no (unknown) (unknown) Chlamydia (units (unkn own) date) () unknown) (unknown) (no (unknown) (unknown) Chronic insomnia (units (unknown) date) unknown) (unknown) (no (unknown) (unknown) Chronic low back (units (unknown) date) pain () unknown) (unknown) (no (unknown) (unknown) Chronic, (units (unkno wn) date) continuous use of unknown) opioids (unknown) (no (unknown) (unknown) Confirmed (units (unkn own) date) 06/07/22] unknown) (unknown) (no (unknown) (unknown) Consent Form (units (u nknown) date) Signed: Yes unknown) (unknown) (no (unknown) (unknown) Coronal HASTE, (units (unknown) date) sagittal unknown) breath-hold T2 FSE; axial T1 FSE with and without fat (unknown) (no (unknown) (unknown) Culture for (units (un known) date) GC/CT obtained: unknown) No (unknown) (no (unknown) (unknown) DAILY #28 tabs (units (unknown) date) 02/01/22 [Rx unknown) Confirmed 06/07/22] (unknown) (no (unknown) (unknown) : 1985 (units (unknown) date) Acct:[id number] unknown) (unknown) (no (unknown) (unknown) : 1985 (units (unknown) date) unknown) (unknown) (no (unknown) (unknown) Date of Service: (units (unknown) date) 04/19/22 unknown) (unknown) (no (unknown) (unknown) Depression (units (unk nown) date) unknown) (unknown) (no (unknown) (unknown) Dept at (units (unkno wn) date) . unknown) (unknown) (no (unknown) (unknown) Details: (units (unkno wn) date) unknown) (unknown) (no (unknown) (unknown) Dilation Cervix: (units (unknown) date) Yes unknown) (unknown) (no (unknown) (unknown) Discussed repeat (units (unknown) date) attempt in office unknown) after pretreatment of cervix with misoprostol (unknown) (no (unknown) (unknown) Diverticular (units (u nknown) date) disease (-2020) unknown) (unknown) (no (unknown) (unknown) Documented By: (units (unknown) date) Demi Otto unknown) Danielle RIVERA 06/07/22 09 (unknown) (no (unknown) (unknown) Explained (units (unkn own) date) Risks/Benefits/Al unknown) ternatives: Yes (unknown) (no (unknown) (unknown) FINDINGS:? (units (unk nown) date) unknown) (unknown) (no (unknown) (unknown) Failed attempted (units (unknown) date) placement of unknown) Mirena IUD, could not pass sound passed internal (unknown) (no (unknown) (unknown) Family History (units (unknown) date) (Updated 01/31/22 unknown) @ 20:35 by Radha Toledo) (unknown) (no (unknown) (unknown) Father History (units (unknown) date) of heart disease unknown) (unknown) (no (unknown) (unknown) Fibromyalgia (units (u nknown) date) (-2016) unknown) (unknown) (no (unknown) (unknown) [facility]) (unknown) (no (unknown) (unknown) Finder was used, (units (unknown) date) but could not get unknown) past internal cervical os. She did have (unknown) (no (unknown) (unknown) Gout () (units (u nknown) date) unknown) (unknown) (no (unknown) (unknown) Gynecology Visit (units (unknown) date) unknown) (unknown) (no (unknown) (unknown) H/O LEEP (units (unkno wn) date) unknown) (unknown) (no (unknown) (unknown) H/O laparoscopy (units (unknown) date) () unknown) (unknown) (no (unknown) (unknown) HPI (units (unkno wn) date) unknown) (unknown) (no (unknown) (unknown) Height 5 ft 6 in (units (unknown) date) unknown) (unknown) (no (unknown) (unknown) Herpes () (units (unknown) date) unknown) (unknown) (no (unknown) (unknown) History of (units (unk nown) date) unknown) (-08/08/04) (unknown) (no (unknown) (unknown) Human papilloma (units (unknown) date) virus () unknown) (unknown) (no (unknown) (unknown) Hyperlipidemia (units (unknown) date) unknown) (unknown) (no (unknown) (unknown) Hypertension (units (u nknown) date) unknown) (unknown) (no (unknown) (unknown) IMPRESSION:? (units (u nknown) date) unknown) (unknown) (no (unknown) (unknown) INDICATIONS:? (units ( unknown) date) pelvic cramping unknown) (unknown) (no (unknown) (unknown) IUD Insert: No (units (unknown) date) (unabe to pass unknown) sound past internal cervical os) (unknown) (no (unknown) (unknown) IUD Insertion (units ( unknown) date) Notes: unknown) (unknown) (no (unknown) (unknown) IUD Type: Mirena (units (unknown) date) unknown) (unknown) (no (unknown) (unknown) IUD- Insertion (units (unknown) date) unknown) (unknown) (no (unknown) (unknown) Image quality:? (units (unknown) date) Adequate.? unknown) (unknown) (no (unknown) (unknown) Intake Note: (units (u nknown) date) unknown) (unknown) (no (unknown) (unknown) Intake performed (units (unknown) date) by: unknown) Abby Tate (unknown) (no (unknown) (unknown) Intake (units (unkno wn) date) unknown) (unknown) (no (unknown) (unknown) Intake- Clincial (units (unknown) date) Staff unknown) (unknown) (no (unknown) (unknown) Irritable bowel (units (unknown) date) syndrome () unknown) (unknown) (no (unknown) (unknown) Left ovarian (units (u nknown) date) cyst () unknown) (unknown) (no (unknown) (unknown) Loc: [facility] (units (unkno wn) date) unknown) (unknown) (no (unknown) (unknown) Loc: MRI (units (unkno wn) date) unknown) (unknown) (no (unknown) (unknown) [id number] (units (unk nown) date) unknown) (unknown) (no (unknown) (unknown) MR#: [id number] (units (unknown) date) unknown) (unknown) (no (unknown) (unknown) MRI 04/19/22: (units ( unknown) date) unknown) (unknown) (no (unknown) (unknown) Medical History (units (unknown) date) (Updated 01/31/22 unknown) @ 20:23 by Radha Toledo) (unknown) (no (unknown) (unknown) Medications (units (un known) date) unknown) (unknown) (no (unknown) (unknown) Medications: (units (u nknown) date) unknown) (unknown) (no (unknown) (unknown) Mental health (units ( unknown) date) problem unknown) (unknown) (no (unknown) (unknown) Migraines (units (unkn own) date) () unknown) (unknown) (no (unknown) (unknown) Mother Diabetes (units (unknown) date) mellitus unknown) (unknown) (no (unknown) (unknown) New (units (unkno wn) date) unknown) (unknown) (no (unknown) (unknown) Nexplanon (units (unkn own) date) removal since I unknown) have not done Nexplanons. (unknown) (no (unknown) (unknown) No Known Drug (units ( unknown) date) Allergies Allergy unknown) (Verified 06/07/22 09:14) (unknown) (no (unknown) (unknown) Nodes and (units (unkn own) date) vessels:? No unknown) pelvic or inguinal adenopathy by size criteria.? Iliac (unknown) (no (unknown) (unknown) Number: (units (unkno wn) date) [id number] ?? unknown) (unknown) (no (unknown) (unknown) Office Procedure (units (unknown) date) unknown) (unknown) (no (unknown) (unknown) Office (units (unkno wn) date) Procedures unknown) (unknown) (no (unknown) (unknown) Ordering (units (unkno wn) date) Provider: unknown) Demi Otto MD (unknown) (no (unknown) (unknown) Orders (units (unkno wn) date) unknown) (unknown) (no (unknown) (unknown) Orders: (units (unkno wn) date) unknown) (unknown) (no (unknown) (unknown) PAP with hr HPV (units (unknown) date) 06/07/22 Z12.4 - unknown) Encounter for screening for malignant neoplasm (unknown) (no (unknown) (unknown) PFSH (units (unkno wn) date) unknown) (unknown) (no (unknown) (unknown) PROCEDURE:? MR (units (unknown) date) PELVIS WO/W CON unknown) (unknown) (no (unknown) (unknown) Pain started (units (u nknown) date) nearly 1 year unknown) ago. Last visit she reported frequently the (unknown) (no (unknown) (unknown) Painful (units (unkno wn) date) menstrual periods unknown) (unknown) (no (unknown) (unknown) Paracervical (units (u nknown) date) Block: No unknown) (unknown) (no (unknown) (unknown) Patient (units (unkno wn) date) Tolerated unknown) Procedure: With some difficulty (unknown) (no (unknown) (unknown) Patient: (units (unkno wn) date) Griselda Osborneia unknown) B MR#: (unknown) (no (unknown) (unknown) Patient: (units (unkno wn) date) Clemente,Cory unknown) B (unknown) (no (unknown) (unknown) Pelvic US (units (unkn own) date) 12/28/21 at unknown) [place]? showed an anteverted normal size uterus measuring (unknown) (no (unknown) (unknown) Plan (units (unkno wn) date) unknown) (unknown) (no (unknown) (unknown) Position Sitting (units (unknown) date) unknown) (unknown) (no (unknown) (unknown) Post-contrast (units (u nknown) date) axial or coronal unknown) VIBE/2-D FLASH with fat saturation from the iliac (unknown) (no (unknown) (unknown) Test (units (unknown) date) Performed: No unknown) (has Nexplanon in place) (unknown) (no (unknown) (unknown) Procedure: MR (units ( unknown) date) pelvis wo/w con unknown) (unknown) (no (unknown) (unknown) Radiology: (units (unk nown) date) unknown) (unknown) (no (unknown) (unknown) Reason For Visit (units (unknown) date) unknown) (unknown) (no (unknown) (unknown) Screen Pap (units (unk nown) date) collected since unknown) due. History of LEEP at age 14 for NABEEL-III, Pap (unknown) (no (unknown) (unknown) Severe obesity (units (unknown) date) (BMI >= 40) unknown) (unknown) (no (unknown) (unknown) She is not (units (unkn own) date) certain she is unknown) finished with childbearing and in general would prefer (unknown) (no (unknown) (unknown) She preferred (units ( unknown) date) Mirena IUD unknown) insertion under anesthesia. Will schedule. (unknown) (no (unknown) (unknown) Shortness of (units (u nknown) date) breath unknown) (unknown) (no (unknown) (unknown) Signed By: (units (unk nown) date) <Electronically unknown) signed by Demi Otto MD> (unknown) (no (unknown) (unknown) Signed (units (unkno wn) date) unknown) (unknown) (no (unknown) (unknown) Sleep apnea (units (un known) date) () unknown) (unknown) (no (unknown) (unknown) Smoking Status: (units (unknown) date) Never smoker unknown) (unknown) (no (unknown) (unknown) Social History (units (unknown) date) unknown) (unknown) (no (unknown) (unknown) Soft tissues:? (units (unknown) date) 4.0 cm ovoid unknown) region of intrinsic T1 hyperintensity present along (unknown) (no (unknown) (unknown) Speculum placed: (units (unknown) date) Yes unknown) (unknown) (no (unknown) (unknown) Status post (units (un known) date) right foot unknown) surgery () (unknown) (no (unknown) (unknown) Surgical History (units (unknown) date) (Updated 01/31/22 unknown) @ 20:23 by Radha Toledo) (unknown) (no (unknown) (unknown) TECHNIQUE:? (units (un known) date) unknown) (unknown) (no (unknown) (unknown) Tenaculum placed (units (unknown) date) to cervix to unknown) straighten cervix. Endometrial Pipelle used to (unknown) (no (unknown) (unknown) Tenaculum (units (unkn own) date) placed: Yes unknown) (unknown) (no (unknown) (unknown) This note may (units ( unknown) date) have been all or unknown) partially generated using voice recognition (unknown) (no (unknown) (unknown) Tobacco + (units (unkn own) date) Substance Use unknown) (unknown) (no (unknown) (unknown) Tobacco Status (units (unknown) date) unknown) (unknown) (no (unknown) (unknown) Urinary system:? (units (unknown) date) Bladder wall is unknown) normal in thickness.? Distal ureters are non (unknown) (no (unknown) (unknown) Uterus:? Uterus (units (unknown) date) is normal in unknown) size.? Endometrium is normal in thickness. Arcuate (unknown) (no (unknown) (unknown) Visit Reasons: (units (unknown) date) IUD unknown) placement/nexplan on removal*NOAUTHREQ D (unknown) (no (unknown) (unknown) Vitals (units (unkno wn) date) unknown) (unknown) (no (unknown) (unknown) Weight 288 lb (units ( unknown) date) unknown) (unknown) (no (unknown) (unknown) [History (units (unkno wn) date) Confirmed unknown) 06/07/22] (unknown) (no (unknown) (unknown) abdominal/pelvic (units (unknown) date) wall associated unknown) with the lower rectus musculature.? This is a (unknown) (no (unknown) (unknown) are not (units (unkno wn) date) excludable.? unknown) (unknown) (no (unknown) (unknown) area in anterior (units (unknown) date) rectus muscles unknown) after correlation with the prior CT scan with (unknown) (no (unknown) (unknown) bowel gas. (units (unk nown) date) unknown) (unknown) (no (unknown) (unknown) buprenorphine 8 (units (unknown) date) mg-naloxone 2 mg unknown) sublingual film (Suboxone) 1 film sublingual (unknown) (no (unknown) (unknown) bupropion HCl (units ( unknown) date) 300 mg 24 hr unknown) tablet, extended release 300 mg PO DAILY 01/03/22 (unknown) (no (unknown) (unknown) chronic pelvic (units (unknown) date) pain. unknown) (unknown) (no (unknown) (unknown) considered.? (units (u nknown) date) Correlation with unknown) the patient's symptoms, such as location of (unknown) (no (unknown) (unknown) cramping and (units (u nknown) date) unknown) (unknown) (no (unknown) (unknown) crests (units (unkno wn) date) unknown) (unknown) (no (unknown) (unknown) despite the (units (un known) date) Nexplanon. 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 (units (un known) date) unknown) (unknown) (no (unknown) (unknown) endometriosis (units (u nknown) date) elsewhere within unknown) the pelvis identified.? Other etiologies for this (unknown) (no (unknown) (unknown) endometriosis in (units (unknown) date) the absence of unknown) prior surgery is uncommon but possible.? No (unknown) (no (unknown) (unknown) evidence of (units (un known) date) unknown) (unknown) (no (unknown) (unknown) finding (units (unkno wn) date) unknown) (unknown) (no (unknown) (unknown) have occurred. (units (unknown) date) If there are any unknown) questions, please contact the Medical Records (unknown) (no (unknown) (unknown) having monthly (units (unknown) date) menses with unknown) Nexplanon. She is having worse menstrual cramps with (unknown) (no (unknown) (unknown) her last visit, (units (unknown) date) pelvic MRI showed unknown) uterine adenomyosis. See report below. 4 cm (unknown) (no (unknown) (unknown) image 23 and (units (u nknown) date) series 14, image unknown) 74). (unknown) (no (unknown) (unknown) last pap 1 year (units (unknown) date) hx abnormal unknown) (unknown) (no (unknown) (unknown) lesions.? (units (unkn own) date) unknown) (unknown) (no (unknown) (unknown) loops are normal (units (unknown) date) in caliber.? unknown) (unknown) (no (unknown) (unknown) mass. (units (unkno wn) date) unknown) (unknown) (no (unknown) (unknown) may occur. (units (unk nown) date) Occasional unknown) wrong-word or 'sound-alike' substitutions may have (unknown) (no (unknown) (unknown) menses but also (units (unknown) date) having similar unknown) discomfort without menstrual bleeding. Recent (unknown) (no (unknown) (unknown) menses sometimes (units (unknown) date) heavier. unknown) (unknown) (no (unknown) (unknown) midline anterior (units (unknown) date) abdominal/pelvic unknown) wall / lower rectus musculature (for example (unknown) (no (unknown) (unknown) midline uterine (units (unknown) date) fundal fibroid, unknown) submucosal, measuring 1.2 cm.? Right ovary not (unknown) (no (unknown) (unknown) millimeters.? (units ( unknown) date) Multiple unknown) Nabothian cysts are present.? (unknown) (no (unknown) (unknown) nonspecific (units (un known) date) finding.? unknown) Correlation with any prior history of or other (unknown) (no (unknown) (unknown) norgestimate (units (u nknown) date) 0.25 mg-ethinyl unknown) estradiol 35 mcg tablet (Sprintec (28)) 1 tab PO (unknown) (no (unknown) (unknown) normal in size.? (units (unknown) date) unknown) (unknown) (no (unknown) (unknown) notices pain is (units (unknown) date) mostly in the unknown) midline. She has a Nexplanon in place and is (unknown) (no (unknown) (unknown) occurred due to (units (unknown) date) the inherent unknown) limitations of voice recognition software. Please (unknown) (no (unknown) (unknown) of MRI showing (units (unknown) date) adenomyosis, and unknown) treatment options discussed. She has pain (unknown) (no (unknown) (unknown) of cervix, (units (unk nown) date) Z86.19 - Personal unknown) history of other infectious and parasitic diseases (unknown) (no (unknown) (unknown) os. (units (unkno wn) date) unknown) (unknown) (no (unknown) (unknown) oxycodone 5 mg (units (unknown) date) PO Q12H PRN 5 unknown) tabs 0RF pain, severe (unknown) (no (unknown) (unknown) oxycodone 5 mg (units (unknown) date) tablet 5 mg PO unknown) Q12H PRN pain, severe #5 tabs 06/07/22 [Rx (unknown) (no (unknown) (unknown) performed.? (units (un known) date) unknown) (unknown) (no (unknown) (unknown) presents for (units (u nknown) date) Mirena If IUD unknown) inserted with success, then another provider will do (unknown) (no (unknown) (unknown) pt here for IUD (units (unknown) date) placement. unknown) (unknown) (no (unknown) (unknown) radiologist, (units (u nknown) date) felt to be scar unknown) tissue from her and not an endometrial (unknown) (no (unknown) (unknown) read the note (units ( unknown) date) carefully and unknown) recognize, using context, where these substitutions (unknown) (no (unknown) (unknown) relationship to (units (unknown) date) the patient's unknown) menstrual cycle, could also be helpful.? Abdominal (unknown) (no (unknown) (unknown) saturation (units (unk nown) date) unknown) (unknown) (no (unknown) (unknown) seen.? No free (units (unknown) date) fluid. ? Reported unknown) limited evaluation due to marked overlying (unknown) (no (unknown) (unknown) series 10, (units (unk nown) date) unknown) (unknown) (no (unknown) (unknown) small bowel (units (un known) date) unknown) (unknown) (no (unknown) (unknown) smears normal (units ( unknown) date) since. unknown) (unknown) (no (unknown) (unknown) software. 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 Since last visit she (unknown) (no (unknown) (unknown) sound uterus, (units ( unknown) date) could not pass unknown) the Pipelle past the internal cervical os. An os (unknown) (no (unknown) (unknown) start with (units (unk nown) date) conservative unknown) treatment. Pain not severe. After discussion by phone (unknown) (no (unknown) (unknown) surgery in (units (unk nown) date) unknown) (unknown) (no (unknown) (unknown) the uterus.? (units (u nknown) date) Sagittal or axial unknown) dynamic VIBE during administration of contrast.? (unknown) (no (unknown) (unknown) the (units (unkno wn) date) unknown) (unknown) (no (unknown) (unknown) this area may be (units (unknown) date) helpful as if unknown) performed previously, scar endometriosis could be (unknown) (no (unknown) (unknown) through the (units (unk nown) date) pelvis.? Optional unknown) long- and short-axis uterine nonbreath-hold T2 FSE (unknown) (no (unknown) (unknown) through (units (unkno wn) date) unknown) (unknown) (no (unknown) (unknown) to the (units (unkno wn) date) symphysis.? unknown) Optional diffusion weighted imaging and ADC may be (unknown) (no (unknown) (unknown) trazodone 50 mg (units (unknown) date) tablet 50 mg PO unknown) BEDTIME PRN sleep 01/03/22 [History Confirmed (unknown) (no (unknown) (unknown) treatment of (units (u nknown) date) uterine unknown) adenomyosis as likely cause of chronic pelvic pain. Since (unknown) (no (unknown) (unknown) up to 14 (units (unkno wn) date) unknown) (unknown) (no (unknown) (unknown) uterine (units (unkno wn) date) cramping, unknown) discomfort with the attempt. Discomfort felt similar to her (unknown) (no (unknown) (unknown) uterus (units (unkno wn) date) unknown) (unknown) (no (unknown) (unknown) variant anatomy.? (units (unknown) date) Junctional zone unknown) is ill-defined and appears thickened measuring (unknown) (no (unknown) (unknown) versus insertion (units (unknown) date) under anesthesia unknown) since she did have fair amount of discomfort (unknown) (no (unknown) (unknown) vessels are (units (un known) date) unknown) (unknown) (no (unknown) (unknown) visualized.? (units (u nknown) date) Left ovary with a unknown) 3.1 cm left ovarian cyst,? no adnexal masses (unknown) (no (unknown) (unknown) wall (units (unkno wn) date) unknown) (unknown) (no (unknown) (unknown) with attempted (units ( unknown) date) pressure on unknown) internal cervical os, due to the uterine adenomyosis. (unknown) (no (unknown) (unknown) would be (units (unkno wn) date) progesterone IUD. unknown) She desires a trial of a progesterone IUD and Result panel 36 (unknown) (no (unknown) (unknown) (no value) (units (unk nown) date) unknown) (unknown) (no (unknown) (unknown) 04/30/22 (units (unkno wn) date) unknown) (unknown) (no (unknown) (unknown) (units (unkno wn) date) unknown) (unknown) (no (unknown) (unknown) 11/21 (units (unkno wn) date) unknown) (unknown) (no (unknown) (unknown) ADHD (-1998) (units (u nknown) date) unknown) (unknown) (no (unknown) (unknown) Abdominal pain (units (unknown) date) unknown) (unknown) (no (unknown) (unknown) Abdominal pain: (units (unknown) date) The patient reports unknown) 5-6 years of supra-umbilical to epigastric (unknown) (no (unknown) (unknown) Abnormal Pap smear (units (unknown) date) of cervix unknown) (unknown) (no (unknown) (unknown) Abnormal chest (units (unknown) date) xray () unknown) (unknown) (no (unknown) (unknown) Age/Sex: 36 / F (units (unknown) date) Date of Service: unknown) (unknown) (no (unknown) (unknown) Alanine (units (unkno wn) date) Aminotransferase unknown) (ALT/SGPT) 25 IU/L (9-52) 08/08 (unknown) (no (unknown) (unknown) Albumin 4.5 g/dL (units (unknown) date) (3.5-5.0) 08/22/16 unknown) (unknown) (no (unknown) (unknown) Albumin/Globulin (units (unknown) date) Ratio 1.5 (1-2.8) unknown) 08/22/16 (unknown) (no (unknown) (unknown) Alkaline (units (unkno wn) date) Phosphatase 40 U/L unknown) (38-126) 08/22/16 (unknown) (no (unknown) (unknown) All systems (units (un known) date) reviewed + are unknown) unremarkable except as noted in HPI and below (unknown) (no (unknown) (unknown) Allergies (units (unkn own) date) unknown) (unknown) (no (unknown) (unknown) [place], [place] (units ( unknown) date) [id number] unknown) (unknown) (no (unknown) (unknown) Anesthesia (units (unk nown) date) unknown) (unknown) (no (unknown) (unknown) Anxiety (units (unkno wn) date) unknown) (unknown) (no (unknown) (unknown) Anxiety: The (units (u nknown) date) patient reports unknown) symptoms are well controlled on current therapy. (unknown) (no (unknown) (unknown) Aspartate Amino (units (unknown) date) Transf (AST/SGOT) unknown) 19 IU/L (14-36) 08/22/ (unknown) (no (unknown) (unknown) Asthma (units (unkno wn) date) unknown) (unknown) (no (unknown) (unknown) Attending Dr: (units ( unknown) date) Rafael Mcgee MD unknown) (unknown) (no (unknown) (unknown) BACK: Nontender (units (unknown) date) without deformity unknown) or crepitance. No flank tenderness. (unknown) (no (unknown) (unknown) BUN/Creatinine (units (unknown) date) Ratio 13.3 unknown) (5.8-27.8) 08/22/16 (unknown) (no (unknown) (unknown) Blood Urea (units (unk nown) date) Nitrogen 8.0 mg/dL unknown) (7-17) 08/22/16 (unknown) (no (unknown) (unknown) CARDIOVASCULAR: (units (unknown) date) Regular rate and unknown) rhythm without murmurs, gallops, or rubs. (unknown) (no (unknown) (unknown) Calcium Level 8.7 (units (unknown) date) mg/dL (8.4-10.2) unknown) 08/22/16 (unknown) (no (unknown) (unknown) Carbon Dioxide (units (unknown) date) Level 25.0 mmol/L unknown) (22-30) 08/22/16 (unknown) (no (unknown) (unknown) Carpal tunnel (units ( unknown) date) syndrome () unknown) (unknown) (no (unknown) (unknown) Cervical cancer (units (unknown) date) (-2002) unknown) (unknown) (no (unknown) (unknown) Wbnezsv-Ruvaf-Dnji (units (unknown) date) h disease unknown) (unknown) (no (unknown) (unknown) Chief Complaint (units (unknown) date) unknown) (unknown) (no (unknown) (unknown) Chief Complaint: (units (unknown) date) Medical followup unknown) (unknown) (no (unknown) (unknown) Chlamydia () (units (unknown) date) unknown) (unknown) (no (unknown) (unknown) Chloride Level (units (unknown) date) 104.0 mmol/L unknown) (98-107) 08/22/16 (unknown) (no (unknown) (unknown) Chronic Low Back (units (unknown) date) Pain: The patient unknown) has a history of chronic back pain since 2004 (unknown) (no (unknown) (unknown) Chronic insomnia (units (unknown) date) unknown) (unknown) (no (unknown) (unknown) Chronic low back (units (unknown) date) pain () unknown) (unknown) (no (unknown) (unknown) Chronic pain (units (u nknown) date) management: The unknown) patient is seen in follow-up for chronic pain (unknown) (no (unknown) (unknown) Chronic, (units (unkno wn) date) continuous use of unknown) opioids (unknown) (no (unknown) (unknown) [facility] (units (unk nown) date) Results- Last: unknown) (unknown) (no (unknown) (unknown) Const (units (unkno wn) date) unknown) (unknown) (no (unknown) (unknown) Creatinine 0.60 (units (unknown) date) mg/dL (0.52-1.04) unknown) 08/22/16 (unknown) (no (unknown) (unknown) DERMATOLOGIC: No (units (unknown) date) rashes or skin unknown) lesions. (unknown) (no (unknown) (unknown) : 1985 (units (unknown) date) Acct:[id number] unknown) (unknown) (no (unknown) (unknown) Depression (units (unk nown) date) unknown) (unknown) (no (unknown) (unknown) Dept at (units (unkno wn) date) . unknown) (unknown) (no (unknown) (unknown) Details: (units (unkno wn) date) unknown) (unknown) (no (unknown) (unknown) Diverticular (units (u nknown) date) disease () unknown) (unknown) (no (unknown) (unknown) Documented By: (units (unknown) date) Rafael Mcgee MD unknown) 08/02/22 0543 (unknown) (no (unknown) (unknown) Draft (units (unkno wn) date) unknown) (unknown) (no (unknown) (unknown) ENT: Mucous (units (un known) date) membranes pink and unknown) moist. (unknown) (no (unknown) (unknown) EXTREMITIES: No (units (unknown) date) clubbing, cyanosis, unknown) or edema. (unknown) (no (unknown) (unknown) EYES: Pupils equal (units (unknown) date) round and reactive. unknown) Extraocular motions intact. No scleral (unknown) (no (unknown) (unknown) Exam Narrative (units (unknown) date) unknown) (unknown) (no (unknown) (unknown) Exam Narrative: (units (unknown) date) unknown) (unknown) (no (unknown) (unknown) Exam (units (unkno wn) date) unknown) (unknown) (no (unknown) (unknown) Family History (units (unknown) date) (Reviewed 08/02/22 unknown) @ 05:44 by Rafael Mcgee MD) (unknown) (no (unknown) (unknown) Father History of (units (unknown) date) heart disease unknown) (unknown) (no (unknown) (unknown) Fibromyalgia (units (u nknown) date) (-2016) unknown) (unknown) (no (unknown) (unknown) [facility]) (unknown) (no (unknown) (unknown) GASTROINTESTINAL: (units (unknown) date) Abdomen soft, unknown) non-tender, nondistended. (unknown) (no (unknown) (unknown) GENERAL: This is a (units (unknown) date) well-nourished, unknown) well-developed patient, in no apparent (unknown) (no (unknown) (unknown) Globulin 3.0 g/dL (units (unknown) date) (1.7-4.1) 08/22/16 unknown) (unknown) (no (unknown) (unknown) Glucose Level 104 (units (unknown) date) mg/dL (79-115) unknown) 08/22/16 (unknown) (no (unknown) (unknown) Gout (-2016) (units (u nknown) date) unknown) (unknown) (no (unknown) (unknown) H/O LEEP (units (unkno wn) date) unknown) (unknown) (no (unknown) (unknown) H/O laparoscopy (units (unknown) date) (-2009) unknown) (unknown) (no (unknown) (unknown) HPI (units (unkno wn) date) unknown) (unknown) (no (unknown) (unknown) Hematocrit 42.0 % (units (unknown) date) (36-46) 08/22/16 unknown) (unknown) (no (unknown) (unknown) Hemoglobin 13.9 (units (unknown) date) G/DL (12-16) unknown) 08/22/16 (unknown) (no (unknown) (unknown) Herpes (-2018) (units (unknown) date) unknown) (unknown) (no (unknown) (unknown) History of (units (unk nown) date) unknown) (-08/08/04) (unknown) (no (unknown) (unknown) Human papilloma (units (unknown) date) virus (-2002) unknown) (unknown) (no (unknown) (unknown) Hyperlipidemia (units (unknown) date) unknown) (unknown) (no (unknown) (unknown) Hypertension (units (u nknown) date) unknown) (unknown) (no (unknown) (unknown) Insomnia: The (units ( unknown) date) patient states unknown) symptoms are adequately controlled on trazodone. (unknown) (no (unknown) (unknown) Intake (units (unkno wn) date) unknown) (unknown) (no (unknown) (unknown) Internal Medicine (units (unknown) date) Office Visit unknown) (unknown) (no (unknown) (unknown) Irritable bowel (units (unknown) date) syndrome (-2008) unknown) (unknown) (no (unknown) (unknown) Lab Results (units (un known) date) unknown) (unknown) (no (unknown) (unknown) Left ovarian cyst (units (unknown) date) () unknown) (unknown) (no (unknown) (unknown) Loc: [facility] (units (unkno wn) date) unknown) (unknown) (no (unknown) (unknown) [id number] (units (unk nown) date) unknown) (unknown) (no (unknown) (unknown) Major depression:? (units (unknown) date) The patient reports unknown) good compliance with bupropion, and (unknown) (no (unknown) (unknown) Mean Corpuscular (units (unknown) date) Hemoglobin 30.5 PG unknown) (26-34) 08/22/16 (unknown) (no (unknown) (unknown) Mean Corpuscular (units (unknown) date) Hemoglobin Concent unknown) 33.1 % (31-37) 08/08 (unknown) (no (unknown) (unknown) Mean Corpuscular (units (unknown) date) Volume 92.2 FL unknown) (80-100) 08/22/16 (unknown) (no (unknown) (unknown) Medical History (units (unknown) date) (Reviewed 08/02/22 unknown) @ 05:44 by Rafael Mcgee MD) (unknown) (no (unknown) (unknown) Mental health (units ( unknown) date) problem unknown) (unknown) (no (unknown) (unknown) Migraines (-2003) (units (unknown) date) unknown) (unknown) (no (unknown) (unknown) Mother Diabetes (units (unknown) date) mellitus unknown) (unknown) (no (unknown) (unknown) NECK: Trachea (units ( unknown) date) midline. No JVD, unknown) bruits or lymphadenopathy. Supple, nontender, no (unknown) (no (unknown) (unknown) NEUROLOGIC: Alert, (units (unknown) date) oriented, speech unknown) fluent, full upper and lower motor strength, (unknown) (no (unknown) (unknown) No Known Drug (units ( unknown) date) Allergies Allergy unknown) (Verified 06/07/22 09:14) (unknown) (no (unknown) (unknown) PFSH (units (unkno wn) date) unknown) (unknown) (no (unknown) (unknown) Painful menstrual (units (unknown) date) periods unknown) (unknown) (no (unknown) (unknown) Patient: (units (unkno wn) date) Cory Osborne unknown) MR#: (unknown) (no (unknown) (unknown) Platelet Count 184 (units (unknown) date) X103/uL (150-400) unknown) 08/22/16 (unknown) (no (unknown) (unknown) Potassium Level (units (unknown) date) 4.0 mmol/L unknown) (3.5-5.1) 08/22/16 (unknown) (no (unknown) (unknown) RESPIRATORY: Clear (units (unknown) date) to auscultation. unknown) (unknown) (no (unknown) (unknown) ROS (units (unkno wn) date) unknown) (unknown) (no (unknown) (unknown) Reason For Visit (units (unknown) date) unknown) (unknown) (no (unknown) (unknown) Red Blood Count (units (unknown) date) 4.55 X106/uL unknown) (4.0-5.2) 08/22/16 (unknown) (no (unknown) (unknown) Red Cell (units (unkno wn) date) Distribution Width unknown) 12.7 % (11.6-14.8) 08/22/16 (unknown) (no (unknown) (unknown) Severe obesity (units (unknown) date) (BMI >= 40) unknown) (unknown) (no (unknown) (unknown) She meditates and (units (unknown) date) enjoys plants. unknown) DEBBIE-7 score = . (unknown) (no (unknown) (unknown) Shortness of (units (u nknown) date) breath unknown) (unknown) (no (unknown) (unknown) Signed By: (units (unk nown) date) unknown) (unknown) (no (unknown) (unknown) Sleep apnea (units (un known) date) (-1989) unknown) (unknown) (no (unknown) (unknown) Smoking Status: (units (unknown) date) Never smoker unknown) (unknown) (no (unknown) (unknown) Social History (units (unknown) date) unknown) (unknown) (no (unknown) (unknown) Sodium Level 143 (units (unknown) date) mmol/L (137-145) unknown) 08/22/16 (unknown) (no (unknown) (unknown) Status post right (units (unknown) date) foot surgery unknown) (-2000) (unknown) (no (unknown) (unknown) Suboxone. She is (units (unknown) date) followed [facility]. She (unknown) (no (unknown) (unknown) Surgical History (units (unknown) date) (Reviewed 08/02/22 unknown) @ 05:44 by Rafael Mcgee MD) (unknown) (no (unknown) (unknown) The patient has (units (unknown) date) good motivation. unknown) PHQ-9 score = 06/03. (unknown) (no (unknown) (unknown) This note may have (units (unknown) date) been all or unknown) partially generated using voice recognition (unknown) (no (unknown) (unknown) Tobacco + (units (unkn own) date) Substance Use unknown) (unknown) (no (unknown) (unknown) Tobacco Status (units (unknown) date) unknown) (unknown) (no (unknown) (unknown) Total Bilirubin (units (unknown) date) 0.3 mg/dL (0.2-1.3) unknown) 08/22/16 (unknown) (no (unknown) (unknown) Total Protein 7.5 (units (unknown) date) g/dL (6.3-8.2) unknown) 08/22/16 (unknown) (no (unknown) (unknown) Visit Reasons: (units (unknown) date) sleeping issues, unknown) fatigue, referral (unknown) (no (unknown) (unknown) White Blood Count (units (unknown) date) 13.9 X103/uL unknown) (4.5-11) H 08/22/16 (unknown) (no (unknown) (unknown) abdominal pain. (units (unknown) date) She had an unknown) abdominal and pelvic ultrasound 12/28/2021 reporting (unknown) (no (unknown) (unknown) able to work (units (u nknown) date) through this. No unknown) vomiting, bleeding, change in bowel habits, chest (unknown) (no (unknown) (unknown) adverse side (units (u nknown) date) effects. The pain unknown) medication is allowing for an increased overall (unknown) (no (unknown) (unknown) after difficult (units (unknown) date) labor delivering unknown) her son, treated with various medications which (unknown) (no (unknown) (unknown) anhedonia, social (units (unknown) date) withdrawal, or unknown) trouble with memory, focus, or concentration. (unknown) (no (unknown) (unknown) available at this (units (unknown) date) time. She reports unknown) on 12/14/2021 she was seen for similar more (unknown) (no (unknown) (unknown) behaviors, signs (units (unknown) date) of addiction, or unknown) rapid development of tolerance.?She is (unknown) (no (unknown) (unknown) condition is (units (u nknown) date) stable. 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 (units (unkn own) date) unknown) (unknown) (no (unknown) (unknown) diverticulitis. (units (unknown) date) She has unknown) intermittent nausea, malaise and weakness. She has been (unknown) (no (unknown) (unknown) followed by (units (unknown) date) [facility]. unknown) (unknown) (no (unknown) (unknown) have occurred. If (units (unknown) date) there are any unknown) questions, please contact the Medical Records (unknown) (no (unknown) (unknown) icterus. No (units (un known) date) injection or unknown) drainage. (unknown) (no (unknown) (unknown) kratom in 2018 in (units (unknown) date) increasing amounts unknown) and started treatment and was placed on (unknown) (no (unknown) (unknown) level of (units (unkno wn) date) function.? The unknown) patient is not exhibiting any aberrant drug related (unknown) (no (unknown) (unknown) management for (units (unknown) date) chronic back pain.? unknown) The patient is receiving adequate analgesia (unknown) (no (unknown) (unknown) may occur. (units (unk nown) date) Occasional unknown) wrong-word or 'sound-alike' substitutions may have (unknown) (no (unknown) (unknown) meningeal signs. (units (unknown) date) unknown) (unknown) (no (unknown) (unknown) no focal deficits (units (unknown) date) evident. unknown) (unknown) (no (unknown) (unknown) occurred due to (units (unknown) date) the inherent unknown) limitations of voice recognition software. Please (unknown) (no (unknown) (unknown) on the current (units (unknown) date) medication. There unknown) has been no significant medication related (unknown) (no (unknown) (unknown) pain, shortness of (units (unknown) date) breath. She was unknown) referred to gynecology. (unknown) (no (unknown) (unknown) read the note (units ( unknown) date) carefully and unknown) recognize, using context, where these substitutions (unknown) (no (unknown) (unknown) reports chronic (units (unknown) date) pain with a dull unknown) ache and located in the lower back with right (unknown) (no (unknown) (unknown) severe symptoms (units (unknown) date) with diarrhea at unknown) [facility] ER with a low potassium and CT scan was (unknown) (no (unknown) (unknown) she weaned off as (units (unknown) date) they didn't seem unknown) particularly effective. She started using (unknown) (no (unknown) (unknown) sided sciatica. (units (unknown) date) Aggravating factors unknown) include rising from sitting, prolonged (unknown) (no (unknown) (unknown) software. 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 (units (unknown) date) Associated symptoms unknown) include difficulty walking. Overall (unknown) (no (unknown) (unknown) unremarkable, and (units (unknown) date) was treated for 2 unknown) weeks with Augmentin for possible (unknown) (no (unknown) (unknown) uterine fibroids (units (unknown) date) and ovarian cysts unknown) according to the patient, with records not Result panel 37 (unknown) (no (unknown) (unknown) (no value) (units (unk nown) date) unknown) (unknown) (no (unknown) (unknown) 08/02/22 (units (unkno wn) date) unknown) (unknown) (no (unknown) (unknown) 08:15 (units (unkno wn) date) unknown) (unknown) (no (unknown) (unknown) 06/07/22] (units (unkn own) date) unknown) (unknown) (no (unknown) (unknown) 17 (units (unkno wn) date) unknown) (unknown) (no (unknown) (unknown) 36 yo female (units (u nknown) date) presents today c/o unknown) sleeping issues (snoring, talking in sleep, (unknown) (no (unknown) (unknown) 11/21 (units (unkno wn) date) unknown) (unknown) (no (unknown) (unknown) ADHD (-1998) (units (u nknown) date) unknown) (unknown) (no (unknown) (unknown) Abdominal pain (units (unknown) date) unknown) (unknown) (no (unknown) (unknown) Abdominal pain: (units (unknown) date) The patient reports unknown) 5-6 years of supra-umbilical to epigastric (unknown) (no (unknown) (unknown) Abnormal Pap smear (units (unknown) date) of cervix unknown) (unknown) (no (unknown) (unknown) Abnormal chest (units (unknown) date) xray (-2014) unknown) (unknown) (no (unknown) (unknown) Accompanied by: (units (unknown) date) Son unknown) (unknown) (no (unknown) (unknown) Age/Sex: 36 / F (units (unknown) date) Date of Service: unknown) (unknown) (no (unknown) (unknown) Alanine (units (unkno wn) date) Aminotransferase unknown) (ALT/SGPT) 25 IU/L (9-52) 08/08 (unknown) (no (unknown) (unknown) Albumin 4.5 g/dL (units (unknown) date) (3.5-5.0) 08/22/16 unknown) (unknown) (no (unknown) (unknown) Albumin/Globulin (units (unknown) date) Ratio 1.5 (1-2.8) unknown) 08/22/16 (unknown) (no (unknown) (unknown) Alkaline (units (unkno wn) date) Phosphatase 40 U/L unknown) (38-126) 08/22/16 (unknown) (no (unknown) (unknown) All systems (units (un known) date) reviewed + are unknown) unremarkable except as noted in HPI and below (unknown) (no (unknown) (unknown) Allergies (units (unkn own) date) unknown) (unknown) (no (unknown) (unknown) [place], [place] (units ( unknown) date) [id number] unknown) (unknown) (no (unknown) (unknown) Anesthesia (units (unk nown) date) unknown) (unknown) (no (unknown) (unknown) Anxiety (units (unkno wn) date) unknown) (unknown) (no (unknown) (unknown) Anxiety: The (units (u nknown) date) patient reports unknown) symptoms are well controlled on current therapy. (unknown) (no (unknown) (unknown) Aspartate Amino (units (unknown) date) Transf (AST/SGOT) unknown) 19 IU/L (14-36) 08/22/ (unknown) (no (unknown) (unknown) Asthma (units (unkno wn) date) unknown) (unknown) (no (unknown) (unknown) Attending Dr: (units ( unknown) date) Rafael Mcgee MD unknown) (unknown) (no (unknown) (unknown) BACK: Nontender (units (unknown) date) without deformity unknown) or crepitance. No flank tenderness. (unknown) (no (unknown) (unknown) BID 01/03/22 (units (u nknown) date) [History Confirmed unknown) 06/07/22] (unknown) (no (unknown) (unknown) BMI 46.5 (units (unkno wn) date) unknown) (unknown) (no (unknown) (unknown) BP 146/75 H (units (un known) date) unknown) (unknown) (no (unknown) (unknown) BUN/Creatinine (units (unknown) date) Ratio 13.3 unknown) (5.8-27.8) 08/22/16 (unknown) (no (unknown) (unknown) Blood Pressure (units (unknown) date) Location Lt radial unknown) (unknown) (no (unknown) (unknown) Blood Urea (units (unk nown) date) Nitrogen 8.0 mg/dL unknown) (01-21) 08/22/16 (unknown) (no (unknown) (unknown) CARDIOVASCULAR: (units (unknown) date) Regular rate and unknown) rhythm without murmurs, gallops, or rubs. (unknown) (no (unknown) (unknown) Calcium Level 8.7 (units (unknown) date) mg/dL (8.4-10.2) unknown) 08/22/16 (unknown) (no (unknown) (unknown) Carbon Dioxide (units (unknown) date) Level 25.0 mmol/L unknown) () 08/22/16 (unknown) (no (unknown) (unknown) Carpal tunnel (units ( unknown) date) syndrome () unknown) (unknown) (no (unknown) (unknown) Cervical cancer (units (unknown) date) (-2002) unknown) (unknown) (no (unknown) (unknown) Gklhyzf-Umner-Yuyd (units (unknown) date) h disease unknown) (unknown) (no (unknown) (unknown) Chief Complaint (units (unknown) date) unknown) (unknown) (no (unknown) (unknown) Chief Complaint: (units (unknown) date) Medical followup unknown) (unknown) (no (unknown) (unknown) Chlamydia (-2014) (units (unknown) date) unknown) (unknown) (no (unknown) (unknown) Chloride Level (units (unknown) date) 104.0 mmol/L unknown) (98-107) 08/22/16 (unknown) (no (unknown) (unknown) Chronic Low Back (units (unknown) date) Pain: The patient unknown) has a history of chronic back pain since 2004 (unknown) (no (unknown) (unknown) Chronic insomnia (units (unknown) date) unknown) (unknown) (no (unknown) (unknown) Chronic low back (units (unknown) date) pain (-2014) unknown) (unknown) (no (unknown) (unknown) Chronic pain (units (u nknown) date) management: The unknown) patient is seen in follow-up for chronic pain (unknown) (no (unknown) (unknown) Chronic, (units (unkno wn) date) continuous use of unknown) opioids (unknown) (no (unknown) (unknown) [facility] (units (unk nown) date) Results- Last: unknown) (unknown) (no (unknown) (unknown) Confirmed (units (unkn own) date) 06/07/22] unknown) (unknown) (no (unknown) (unknown) Const (units (unkno wn) date) unknown) (unknown) (no (unknown) (unknown) Creatinine 0.60 (units (unknown) date) mg/dL (0.52-1.04) unknown) 08/22/16 (unknown) (no (unknown) (unknown) DERMATOLOGIC: No (units (unknown) date) rashes or skin unknown) lesions. (unknown) (no (unknown) (unknown) : 1985 (units (unknown) date) Acct:[id number] unknown) (unknown) (no (unknown) (unknown) Depression (units (unk nown) date) unknown) (unknown) (no (unknown) (unknown) Dept at (units (unkno wn) date) . unknown) (unknown) (no (unknown) (unknown) Details: (units (unkno wn) date) unknown) (unknown) (no (unknown) (unknown) Diverticular (units (u nknown) date) disease (-2020) unknown) (unknown) (no (unknown) (unknown) Documented By: (units (unknown) date) Rafael Mcgee MD unknown) 08/02/22 0543 (unknown) (no (unknown) (unknown) Draft (units (unkno wn) date) unknown) (unknown) (no (unknown) (unknown) ENT: Mucous (units (un known) date) membranes pink and unknown) moist. (unknown) (no (unknown) (unknown) EXTREMITIES: No (units (unknown) date) clubbing, cyanosis, unknown) or edema. (unknown) (no (unknown) (unknown) EYES: Pupils equal (units (unknown) date) round and reactive. unknown) Extraocular motions intact. No scleral (unknown) (no (unknown) (unknown) Exam Narrative (units (unknown) date) unknown) (unknown) (no (unknown) (unknown) Exam Narrative: (units (unknown) date) unknown) (unknown) (no (unknown) (unknown) Exam (units (unkno wn) date) unknown) (unknown) (no (unknown) (unknown) Family History (units (unknown) date) (Reviewed 08/02/22 unknown) @ 05:44 by Rafael Mcgee MD) (unknown) (no (unknown) (unknown) Father History of (units (unknown) date) heart disease unknown) (unknown) (no (unknown) (unknown) Fibromyalgia (units (u nknown) date) () unknown) (unknown) (no (unknown) (unknown) [facility]) (unknown) (no (unknown) (unknown) GASTROINTESTINAL: (units (unknown) date) Abdomen soft, unknown) non-tender, nondistended. (unknown) (no (unknown) (unknown) GENERAL: This is a (units (unknown) date) well-nourished, unknown) well-developed patient, in no apparent (unknown) (no (unknown) (unknown) Globulin 3.0 g/dL (units (unknown) date) (1.7-4.1) 08/22/16 unknown) (unknown) (no (unknown) (unknown) Glucose Level 104 (units (unknown) date) mg/dL (79-115) unknown) 08/22/16 (unknown) (no (unknown) (unknown) Gout (-2016) (units (u nknown) date) unknown) (unknown) (no (unknown) (unknown) H/O LEEP (units (unkno wn) date) unknown) (unknown) (no (unknown) (unknown) H/O laparoscopy (units (unknown) date) (-2009) unknown) (unknown) (no (unknown) (unknown) HPI (units (unkno wn) date) unknown) (unknown) (no (unknown) (unknown) Height 5 ft 6 in (units (unknown) date) unknown) (unknown) (no (unknown) (unknown) Hematocrit 42.0 % (units (unknown) date) (36-46) 08/22/16 unknown) (unknown) (no (unknown) (unknown) Hemoglobin 13.9 (units (unknown) date) G/DL (12-16) unknown) 08/22/16 (unknown) (no (unknown) (unknown) Herpes (-2018) (units (unknown) date) unknown) (unknown) (no (unknown) (unknown) History of (units (unk nown) date) unknown) (-08/08/04) (unknown) (no (unknown) (unknown) Human papilloma (units (unknown) date) virus (-2002) unknown) (unknown) (no (unknown) (unknown) Hyperlipidemia (units (unknown) date) unknown) (unknown) (no (unknown) (unknown) Hypertension (units (u nknown) date) unknown) (unknown) (no (unknown) (unknown) Insomnia: The (units ( unknown) date) patient states unknown) symptoms are adequately controlled on trazodone. (unknown) (no (unknown) (unknown) Intake Note: (units (u nknown) date) unknown) (unknown) (no (unknown) (unknown) Intake performed (units (unknown) date) by: Demi Madera unknown) (unknown) (no (unknown) (unknown) Intake (units (unkno wn) date) unknown) (unknown) (no (unknown) (unknown) Intake- Clincial (units (unknown) date) Staff unknown) (unknown) (no (unknown) (unknown) Internal Medicine (units (unknown) date) Office Visit unknown) (unknown) (no (unknown) (unknown) Irritable bowel (units (unknown) date) syndrome (-2008) unknown) (unknown) (no (unknown) (unknown) Lab Results (units (un known) date) unknown) (unknown) (no (unknown) (unknown) Left ovarian cyst (units (unknown) date) (-2021) unknown) (unknown) (no (unknown) (unknown) Loc: [facility] (units (unkno wn) date) unknown) (unknown) (no (unknown) (unknown) [id number] (units (unk nown) date) unknown) (unknown) (no (unknown) (unknown) Major depression:? (units (unknown) date) The patient reports unknown) good compliance with bupropion, and (unknown) (no (unknown) (unknown) Mean Corpuscular (units (unknown) date) Hemoglobin 30.5 PG unknown) (26-34) 08/22/16 (unknown) (no (unknown) (unknown) Mean Corpuscular (units (unknown) date) Hemoglobin Concent unknown) 33.1 % (31-37) 08/08 (unknown) (no (unknown) (unknown) Mean Corpuscular (units (unknown) date) Volume 92.2 FL unknown) (80-100) 08/22/16 (unknown) (no (unknown) (unknown) Medical History (units (unknown) date) (Reviewed 08/02/22 unknown) @ 05:44 by Rafael Mcgee MD) (unknown) (no (unknown) (unknown) Medications (units (un known) date) unknown) (unknown) (no (unknown) (unknown) Mental health (units ( unknown) date) problem unknown) (unknown) (no (unknown) (unknown) Migraines (-2003) (units (unknown) date) unknown) (unknown) (no (unknown) (unknown) Mother Diabetes (units (unknown) date) mellitus unknown) (unknown) (no (unknown) (unknown) NECK: Trachea (units ( unknown) date) midline. No JVD, unknown) bruits or lymphadenopathy. Supple, nontender, no (unknown) (no (unknown) (unknown) NEUROLOGIC: Alert, (units (unknown) date) oriented, speech unknown) fluent, full upper and lower motor strength, (unknown) (no (unknown) (unknown) No Known Drug (units ( unknown) date) Allergies Allergy unknown) (Verified 08/02/22 08:12) (unknown) (no (unknown) (unknown) Oxygen Delivery (units (unknown) date) Method room air unknown) (unknown) (no (unknown) (unknown) PFSH (units (unkno wn) date) unknown) (unknown) (no (unknown) (unknown) Painful menstrual (units (unknown) date) periods unknown) (unknown) (no (unknown) (unknown) Patient: (units (unkno wn) date) Cory Osborne unknown) MR#: (unknown) (no (unknown) (unknown) Platelet Count 184 (units (unknown) date) X103/uL (150-400) unknown) 08/22/16 (unknown) (no (unknown) (unknown) Position Sitting (units (unknown) date) unknown) (unknown) (no (unknown) (unknown) Potassium Level (units (unknown) date) 4.0 mmol/L unknown) (3.5-5.1) 08/22/16 (unknown) (no (unknown) (unknown) Pulse 85 (units (unkno wn) date) unknown) (unknown) (no (unknown) (unknown) Pulse Oximetry (%) (units (unknown) date) 97 unknown) (unknown) (no (unknown) (unknown) Pulse Source (units (u nknown) date) Monitor unknown) (unknown) (no (unknown) (unknown) RESPIRATORY: Clear (units (unknown) date) to auscultation. unknown) (unknown) (no (unknown) (unknown) ROS (units (unkno wn) date) unknown) (unknown) (no (unknown) (unknown) Reason For Visit (units (unknown) date) unknown) (unknown) (no (unknown) (unknown) Red Blood Count (units (unknown) date) 4.55 X106/uL unknown) (4.0-5.2) 08/22/16 (unknown) (no (unknown) (unknown) Red Cell (units (unkno wn) date) Distribution Width unknown) 12.7 % (11.6-14.8) 08/22/16 (unknown) (no (unknown) (unknown) Respiration 16 (units (unknown) date) unknown) (unknown) (no (unknown) (unknown) Severe obesity (units (unknown) date) (BMI >= 40) unknown) (unknown) (no (unknown) (unknown) She meditates and (units (unknown) date) enjoys plants. unknown) DEBBIE-7 score = . (unknown) (no (unknown) (unknown) Shortness of (units (u nknown) date) breath unknown) (unknown) (no (unknown) (unknown) Signed By: (units (unk nown) date) unknown) (unknown) (no (unknown) (unknown) Sleep apnea (units (un known) date) (-1989) unknown) (unknown) (no (unknown) (unknown) Smoking Status: (units (unknown) date) Former smoker unknown) (unknown) (no (unknown) (unknown) Social History (units (unknown) date) unknown) (unknown) (no (unknown) (unknown) Sodium Level 143 (units (unknown) date) mmol/L (137-145) unknown) 08/22/16 (unknown) (no (unknown) (unknown) Status post right (units (unknown) date) foot surgery unknown) () (unknown) (no (unknown) (unknown) Suboxone. She is (units (unknown) date) followed by unknown) [facility]. She (unknown) (no (unknown) (unknown) Surgical History (units (unknown) date) (Reviewed 08/02/22 unknown) @ 05:44 by Rafael Mcgee MD) (unknown) (no (unknown) (unknown) The patient has (units (unknown) date) good motivation. unknown) PHQ-9 score = 06/03. (unknown) (no (unknown) (unknown) This note may have (units (unknown) date) been all or unknown) partially generated using voice recognition (unknown) (no (unknown) (unknown) Tobacco + (units (unkn own) date) Substance Use unknown) (unknown) (no (unknown) (unknown) Tobacco Status (units (unknown) date) unknown) (unknown) (no (unknown) (unknown) Total Bilirubin (units (unknown) date) 0.3 mg/dL (0.2-1.3) unknown) 08/22/16 (unknown) (no (unknown) (unknown) Total Protein 7.5 (units (unknown) date) g/dL (6.3-8.2) unknown) 08/22/16 (unknown) (no (unknown) (unknown) Visit Reasons: (units (unknown) date) sleeping issues, unknown) fatigue, referral (unknown) (no (unknown) (unknown) Vitals (units (unkno wn) date) unknown) (unknown) (no (unknown) (unknown) Weight 288 lb 2 oz (units (unknown) date) unknown) (unknown) (no (unknown) (unknown) White Blood Count (units (unknown) date) 13.9 X103/uL unknown) (4.5-11) H 08/22/16 (unknown) (no (unknown) (unknown) [History Confirmed (units (unknown) date) 08/02/22] unknown) (unknown) (no (unknown) (unknown) [History Confirmed (units (unknown) date) 06/07/22] unknown) (unknown) (no (unknown) (unknown) abdominal pain. (units (unknown) date) She had an unknown) abdominal and pelvic ultrasound 12/28/2021 reporting (unknown) (no (unknown) (unknown) able to work (units (u nknown) date) through this. No unknown) vomiting, bleeding, change in bowel habits, chest (unknown) (no (unknown) (unknown) adverse side (units (u nknown) date) effects. The pain unknown) medication is allowing for an increased overall (unknown) (no (unknown) (unknown) after difficult (units (unknown) date) labor delivering unknown) her son, treated with various medications which (unknown) (no (unknown) (unknown) anhedonia, social (units (unknown) date) withdrawal, or unknown) trouble with memory, focus, or concentration. (unknown) (no (unknown) (unknown) available at this (units (unknown) date) time. She reports unknown) on 12/14/2021 she was seen for similar more (unknown) (no (unknown) (unknown) awaken to urinate, (units (unknown) date) jerking awake), unknown) fatigue and a referral to sleep center. (unknown) (no (unknown) (unknown) behaviors, signs (units (unknown) date) of addiction, or unknown) rapid development of tolerance.?She is (unknown) (no (unknown) (unknown) buprenorphine 8 (units (unknown) date) mg-naloxone 2 mg unknown) sublingual film (Suboxone) 1 film sublingual (unknown) (no (unknown) (unknown) bupropion HCl 300 (units (unknown) date) mg 24 hr tablet, unknown) extended release 300 mg PO DAILY 01/03/22 (unknown) (no (unknown) (unknown) condition is (units (u nknown) date) stable. 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 (units (unkn own) date) unknown) (unknown) (no (unknown) (unknown) diverticulitis. (units (unknown) date) She has unknown) intermittent nausea, malaise and weakness. She has been (unknown) (no (unknown) (unknown) duloxetine 30 mg (units (unknown) date) capsule,delayed unknown) release (Cymbalta) 30 mg PO BID 08/02/22 (unknown) (no (unknown) (unknown) followed by (units (unknown) date) [facility]. unknown) (unknown) (no (unknown) (unknown) have occurred. If (units (unknown) date) there are any unknown) questions, please contact the Medical Records (unknown) (no (unknown) (unknown) icterus. No (units (un known) date) injection or unknown) drainage. (unknown) (no (unknown) (unknown) kratom in 2018 in (units (unknown) date) increasing amounts unknown) and started treatment and was placed on (unknown) (no (unknown) (unknown) level of (units (unkno wn) date) function.? The unknown) patient is not exhibiting any aberrant drug related (unknown) (no (unknown) (unknown) management for (units (unknown) date) chronic back pain.? unknown) The patient is receiving adequate analgesia (unknown) (no (unknown) (unknown) may occur. (units (unk nown) date) Occasional unknown) wrong-word or 'sound-alike' substitutions may have (unknown) (no (unknown) (unknown) meningeal signs. (units (unknown) date) unknown) (unknown) (no (unknown) (unknown) no focal deficits (units (unknown) date) evident. unknown) (unknown) (no (unknown) (unknown) occurred due to (units (unknown) date) the inherent unknown) limitations of voice recognition software. Please (unknown) (no (unknown) (unknown) on the current (units (unknown) date) medication. There unknown) has been no significant medication related (unknown) (no (unknown) (unknown) oxycodone 5 mg (units (unknown) date) tablet 5 mg PO ONCE unknown) pain #1 tab 07/31/22 [Rx] (unknown) (no (unknown) (unknown) oxycodone 5 mg (units (unknown) date) tablet 5 mg PO Q12H unknown) PRN pain, severe #5 tabs 06/07/22 [Rx (unknown) (no (unknown) (unknown) pain, shortness of (units (unknown) date) breath. She was unknown) referred to gynecology. (unknown) (no (unknown) (unknown) read the note (units ( unknown) date) carefully and unknown) recognize, using context, where these substitutions (unknown) (no (unknown) (unknown) reports chronic (units (unknown) date) pain with a dull unknown) ache and located in the lower back with right (unknown) (no (unknown) (unknown) severe symptoms (units (unknown) date) with diarrhea at unknown) [facility] ER with a low potassium and CT scan was (unknown) (no (unknown) (unknown) she weaned off as (units (unknown) date) they didn't seem unknown) particularly effective. She started using (unknown) (no (unknown) (unknown) sided sciatica. (units (unknown) date) Aggravating factors unknown) include rising from sitting, prolonged (unknown) (no (unknown) (unknown) software. 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 (units (unknown) date) Associated symptoms unknown) include difficulty walking. Overall (unknown) (no (unknown) (unknown) trazodone 50 mg (units (unknown) date) tablet 50 mg PO unknown) BEDTIME PRN sleep 01/03/22 [History Confirmed (unknown) (no (unknown) (unknown) unremarkable, and (units (unknown) date) was treated for 2 unknown) weeks with Augmentin for possible (unknown) (no (unknown) (unknown) uterine fibroids (units (unknown) date) and ovarian cysts unknown) according to the patient, with records not Result panel 38 (unknown) (no (unknown) (unknown) (no value) (units (unk nown) date) unknown) (unknown) (no (unknown) (unknown) (1) Sleep apnea: (units (unknown) date) unknown) (unknown) (no (unknown) (unknown) (2) Chronic (units (un known) date) insomnia: unknown) (unknown) (no (unknown) (unknown) (3) Abdominal (units ( unknown) date) pain: unknown) (unknown) (no (unknown) (unknown) (4) Left ovarian (units (unknown) date) cyst: unknown) (unknown) (no (unknown) (unknown) (5) Chronic low (units (unknown) date) back pain: unknown) (unknown) (no (unknown) (unknown) (6) Chronic, (units (u nknown) date) continuous use of unknown) opioids: (unknown) (no (unknown) (unknown) (7) Severe obesity (units (unknown) date) (BMI >= 40): unknown) (unknown) (no (unknown) (unknown) 08/02/22 (units (unkno wn) date) unknown) (unknown) (no (unknown) (unknown) 08:15 (units (unkno wn) date) unknown) (unknown) (no (unknown) (unknown) 06/07/22] (units (unkn own) date) unknown) (unknown) (no (unknown) (unknown) 17 (units (unkno wn) date) unknown) (unknown) (no (unknown) (unknown) 36 yo female (units (u nknown) date) presents today c/o unknown) sleeping issues (snoring, talking in sleep, (unknown) (no (unknown) (unknown) 11/21 (units (unkno wn) date) unknown) (unknown) (no (unknown) (unknown) ADHD (-1998) (units (u nknown) date) unknown) (unknown) (no (unknown) (unknown) Abdominal (units (unkn own) date) location: unknown) unspecified location Qualified Code(s): R10.9 (unknown) (no (unknown) (unknown) Abdominal pain (units (unknown) date) unknown) (unknown) (no (unknown) (unknown) Abdominal pain: (units (unknown) date) The patient reports unknown) 5-6 years of supra-umbilical to epigastric (unknown) (no (unknown) (unknown) Abnormal Pap smear (units (unknown) date) of cervix unknown) (unknown) (no (unknown) (unknown) Abnormal chest (units (unknown) date) xray () unknown) (unknown) (no (unknown) (unknown) Accompanied by: (units (unknown) date) Son unknown) (unknown) (no (unknown) (unknown) Adenomyosis: She (units (unknown) date) plans a new IUD unknown) through gynecology. (unknown) (no (unknown) (unknown) Age/Sex: 36 / F (units (unknown) date) Date of Service: unknown) (unknown) (no (unknown) (unknown) Alanine (units (unkno wn) date) Aminotransferase unknown) (ALT/SGPT) 25 IU/L (9-52) 08/08 (unknown) (no (unknown) (unknown) Albumin 4.5 g/dL (units (unknown) date) (3.5-5.0) 08/22/16 unknown) (unknown) (no (unknown) (unknown) Albumin/Globulin (units (unknown) date) Ratio 1.5 (1-2.8) unknown) 08/22/16 (unknown) (no (unknown) (unknown) Alkaline (units (unkno wn) date) Phosphatase 40 U/L unknown) (38-126) 08/22/16 (unknown) (no (unknown) (unknown) All systems (units (un known) date) reviewed + are unknown) unremarkable except as noted in HPI and below (unknown) (no (unknown) (unknown) Allergies (units (unkn own) date) unknown) (unknown) (no (unknown) (unknown) [place], [place] (units ( unknown) date) [id number] unknown) (unknown) (no (unknown) (unknown) Anesthesia (units (unk nown) date) unknown) (unknown) (no (unknown) (unknown) Anxiety (units (unkno wn) date) unknown) (unknown) (no (unknown) (unknown) Anxiety: The (units (u nknown) date) patient reports unknown) symptoms are well controlled on current therapy. (unknown) (no (unknown) (unknown) Aspartate Amino (units (unknown) date) Transf (AST/SGOT) unknown) 19 IU/L (14-36) 08/22/ (unknown) (no (unknown) (unknown) Assessment + Plan (units (unknown) date) unknown) (unknown) (no (unknown) (unknown) Asthma (units (unkno wn) date) unknown) (unknown) (no (unknown) (unknown) Attending Dr: (units ( unknown) date) Rafael Mcgee MD unknown) (unknown) (no (unknown) (unknown) Augmentin for (units ( unknown) date) possible unknown) diverticulitis. She has intermittent nausea, malaise and (unknown) (no (unknown) (unknown) BACK: Nontender (units (unknown) date) without deformity unknown) or crepitance. No flank tenderness. (unknown) (no (unknown) (unknown) BID 01/03/22 (units (u nknown) date) [History Confirmed unknown) 06/07/22] (unknown) (no (unknown) (unknown) BMI 46.5 (units (unkno wn) date) unknown) (unknown) (no (unknown) (unknown) BP 146/75 H (units (un known) date) unknown) (unknown) (no (unknown) (unknown) BUN/Creatinine (units (unknown) date) Ratio 13.3 unknown) (5.8-27.8) 08/22/16 (unknown) (no (unknown) (unknown) Back pain (units (unkn own) date) laterality: unknown) bilateral Sciatica presence: with sciatica (unknown) (no (unknown) (unknown) Blood Pressure (units (unknown) date) Location Lt radial unknown) (unknown) (no (unknown) (unknown) Blood Urea (units (unk nown) date) Nitrogen 8.0 mg/dL unknown) (7-17) 08/22/16 (unknown) (no (unknown) (unknown) CARDIOVASCULAR: (units (unknown) date) Regular rate and unknown) rhythm without murmurs, gallops, or rubs. (unknown) (no (unknown) (unknown) Calcium Level 8.7 (units (unknown) date) mg/dL (8.4-10.2) unknown) 08/22/16 (unknown) (no (unknown) (unknown) Carbon Dioxide (units (unknown) date) Level 25.0 mmol/L unknown) (22-30) 08/22/16 (unknown) (no (unknown) (unknown) Carpal tunnel (units ( unknown) date) syndrome () unknown) (unknown) (no (unknown) (unknown) Cervical cancer (units (unknown) date) () unknown) (unknown) (no (unknown) (unknown) Owvlfom-Nmvbz-Kyio (units (unknown) date) h disease unknown) (unknown) (no (unknown) (unknown) Chief Complaint (units (unknown) date) unknown) (unknown) (no (unknown) (unknown) Chief Complaint: (units (unknown) date) Medical followup unknown) (unknown) (no (unknown) (unknown) Chlamydia () (units (unknown) date) unknown) (unknown) (no (unknown) (unknown) Chloride Level (units (unknown) date) 104.0 mmol/L unknown) (98-107) 08/22/16 (unknown) (no (unknown) (unknown) Chronic Low Back (units (unknown) date) Pain: The patient unknown) has a history of chronic back pain since 2004 (unknown) (no (unknown) (unknown) Chronic insomnia (units (unknown) date) unknown) (unknown) (no (unknown) (unknown) Chronic low back (units (unknown) date) pain () unknown) (unknown) (no (unknown) (unknown) Chronic pain (units (u nknown) date) management: The unknown) patient is seen in follow-up for chronic pain (unknown) (no (unknown) (unknown) Chronic, (units (unkno wn) date) continuous use of unknown) opioids (unknown) (no (unknown) (unknown) [facility] (units (unk nown) date) Results- Last: unknown) (unknown) (no (unknown) (unknown) Confirmed (units (unkn own) date) 06/07/22] unknown) (unknown) (no (unknown) (unknown) Const (units (unkno wn) date) unknown) (unknown) (no (unknown) (unknown) Creatinine 0.60 (units (unknown) date) mg/dL (0.52-1.04) unknown) 08/22/16 (unknown) (no (unknown) (unknown) DERMATOLOGIC: No (units (unknown) date) rashes or skin unknown) lesions. (unknown) (no (unknown) (unknown) : 1985 (units (unknown) date) Acct:[id number] unknown) (unknown) (no (unknown) (unknown) Depression (units (unk nown) date) unknown) (unknown) (no (unknown) (unknown) Dept at (units (unkno wn) date) . unknown) (unknown) (no (unknown) (unknown) Details: (units (unkno wn) date) unknown) (unknown) (no (unknown) (unknown) Diverticular (units (u nknown) date) disease () unknown) (unknown) (no (unknown) (unknown) Documented By: (units (unknown) date) Rafael Mcgee MD unknown) 08/02/22 0543 (unknown) (no (unknown) (unknown) Draft (units (unkno wn) date) unknown) (unknown) (no (unknown) (unknown) ENT: Mucous (units (un known) date) membranes pink and unknown) moist. (unknown) (no (unknown) (unknown) EXTREMITIES: No (units (unknown) date) clubbing, cyanosis, unknown) or edema. (unknown) (no (unknown) (unknown) EYES: Pupils equal (units (unknown) date) round and reactive. unknown) Extraocular motions intact. No scleral (unknown) (no (unknown) (unknown) Exam Narrative (units (unknown) date) unknown) (unknown) (no (unknown) (unknown) Exam Narrative: (units (unknown) date) unknown) (unknown) (no (unknown) (unknown) Exam (units (unkno wn) date) unknown) (unknown) (no (unknown) (unknown) Family History (units (unknown) date) (Reviewed 08/02/22 unknown) @ 05:44 by Rafael Mcgee MD) (unknown) (no (unknown) (unknown) Father History of (units (unknown) date) heart disease unknown) (unknown) (no (unknown) (unknown) Fibromyalgia (units (u nknown) date) (-2015) unknown) (unknown) (no (unknown) (unknown) [facility]) (unknown) (no (unknown) (unknown) GASTROINTESTINAL: (units (unknown) date) Abdomen soft, unknown) non-tender, nondistended. (unknown) (no (unknown) (unknown) GENERAL: This is a (units (unknown) date) well-nourished, unknown) well-developed patient, in no apparent (unknown) (no (unknown) (unknown) Globulin 3.0 g/dL (units (unknown) date) (1.7-4.1) 08/22/16 unknown) (unknown) (no (unknown) (unknown) Glucose Level 104 (units (unknown) date) mg/dL (79-115) unknown) 08/22/16 (unknown) (no (unknown) (unknown) Gout (-2017) (units (u nknown) date) unknown) (unknown) (no (unknown) (unknown) H/O LEEP (units (unkno wn) date) unknown) (unknown) (no (unknown) (unknown) H/O laparoscopy (units (unknown) date) () unknown) (unknown) (no (unknown) (unknown) HPI (units (unkno wn) date) unknown) (unknown) (no (unknown) (unknown) Height 5 ft 6 in (units (unknown) date) unknown) (unknown) (no (unknown) (unknown) Hematocrit 42.0 % (units (unknown) date) (36-46) 08/22/16 unknown) (unknown) (no (unknown) (unknown) Hemoglobin 13.9 (units (unknown) date) G/DL (12-16) unknown) 08/22/16 (unknown) (no (unknown) (unknown) Herpes (-2019) (units (unknown) date) unknown) (unknown) (no (unknown) (unknown) History of (units (unk nown) date) unknown) (-08/08/04) (unknown) (no (unknown) (unknown) Human papilloma (units (unknown) date) virus (-2002) unknown) (unknown) (no (unknown) (unknown) Hyperlipidemia (units (unknown) date) unknown) (unknown) (no (unknown) (unknown) Hypertension (units (u nknown) date) unknown) (unknown) (no (unknown) (unknown) Insomnia: The (units ( unknown) date) patient states unknown) symptoms are adequately controlled on trazodone. (unknown) (no (unknown) (unknown) Intake Note: (units (u nknown) date) unknown) (unknown) (no (unknown) (unknown) Intake performed (units (unknown) date) by: Demi Madera unknown) (unknown) (no (unknown) (unknown) Intake (units (unkno wn) date) unknown) (unknown) (no (unknown) (unknown) Intake- Clincial (units (unknown) date) Staff unknown) (unknown) (no (unknown) (unknown) Internal Medicine (units (unknown) date) Office Visit unknown) (unknown) (no (unknown) (unknown) Irritable bowel (units (unknown) date) syndrome () unknown) (unknown) (no (unknown) (unknown) Lab Results (units (un known) date) unknown) (unknown) (no (unknown) (unknown) Left ovarian cyst (units (unknown) date) () unknown) (unknown) (no (unknown) (unknown) Loc: [facility] (units (unkno wn) date) unknown) (unknown) (no (unknown) (unknown) [id number] (units (unk nown) date) unknown) (unknown) (no (unknown) (unknown) Major depression:? (units (unknown) date) The patient reports unknown) good compliance with bupropion, and (unknown) (no (unknown) (unknown) Mean Corpuscular (units (unknown) date) Hemoglobin 30.5 PG unknown) (26-34) 08/22/16 (unknown) (no (unknown) (unknown) Mean Corpuscular (units (unknown) date) Hemoglobin Concent unknown) 33.1 % (31-37) 08/08 (unknown) (no (unknown) (unknown) Mean Corpuscular (units (unknown) date) Volume 92.2 FL unknown) (80-100) 08/22/16 (unknown) (no (unknown) (unknown) Medical History (units (unknown) date) (Reviewed 08/02/22 unknown) @ 05:44 by Rafael Mcgee MD) (unknown) (no (unknown) (unknown) Medications (units (un known) date) unknown) (unknown) (no (unknown) (unknown) Mental health (units ( unknown) date) problem unknown) (unknown) (no (unknown) (unknown) Migraines (-2003) (units (unknown) date) unknown) (unknown) (no (unknown) (unknown) Mother Diabetes (units (unknown) date) mellitus unknown) (unknown) (no (unknown) (unknown) NECK: Trachea (units ( unknown) date) midline. No JVD, unknown) bruits or lymphadenopathy. Supple, nontender, no (unknown) (no (unknown) (unknown) NEUROLOGIC: Alert, (units (unknown) date) oriented, speech unknown) fluent, full upper and lower motor strength, (unknown) (no (unknown) (unknown) No Known Drug (units ( unknown) date) Allergies Allergy unknown) (Verified 08/02/22 08:12) (unknown) (no (unknown) (unknown) Oxygen Delivery (units (unknown) date) Method room air unknown) (unknown) (no (unknown) (unknown) PFSH (units (unkno wn) date) unknown) (unknown) (no (unknown) (unknown) Painful menstrual (units (unknown) date) periods unknown) (unknown) (no (unknown) (unknown) Patient: (units (unkno wn) date) Cory Osborne B unknown) MR#: (unknown) (no (unknown) (unknown) Platelet Count 184 (units (unknown) date) X103/uL (150-400) unknown) 08/22/16 (unknown) (no (unknown) (unknown) Position Sitting (units (unknown) date) unknown) (unknown) (no (unknown) (unknown) Potassium Level (units (unknown) date) 4.0 mmol/L unknown) (3.5-5.1) 08/22/16 (unknown) (no (unknown) (unknown) Pulse 85 (units (unkno wn) date) unknown) (unknown) (no (unknown) (unknown) Pulse Oximetry (%) (units (unknown) date) 97 unknown) (unknown) (no (unknown) (unknown) Pulse Source (units (u nknown) date) Monitor unknown) (unknown) (no (unknown) (unknown) Qualifiers: (units (un known) date) unknown) (unknown) (no (unknown) (unknown) RESPIRATORY: Clear (units (unknown) date) to auscultation. unknown) (unknown) (no (unknown) (unknown) ROS (units (unkno wn) date) unknown) (unknown) (no (unknown) (unknown) Reason For Visit (units (unknown) date) unknown) (unknown) (no (unknown) (unknown) Red Blood Count (units (unknown) date) 4.55 X106/uL unknown) (4.0-5.2) 08/22/16 (unknown) (no (unknown) (unknown) Red Cell (units (unkno wn) date) Distribution Width unknown) 12.7 % (11.6-14.8) 08/22/16 (unknown) (no (unknown) (unknown) Respiration 16 (units (unknown) date) unknown) (unknown) (no (unknown) (unknown) Sciatica (units (unkno wn) date) laterality: unknown) sciatica of right side Qualified Code(s): M54.41 - Lumbago (unknown) (no (unknown) (unknown) Severe obesity (units (unknown) date) (BMI >= 40) unknown) (unknown) (no (unknown) (unknown) She meditates and (units (unknown) date) enjoys plants. unknown) DEBBIE-7 score = 15/21. (unknown) (no (unknown) (unknown) She reports (units (un known) date) sleeping issues unknown) (snoring, talking in sleep, awaken to urinate, (unknown) (no (unknown) (unknown) Shortness of (units (u nknown) date) breath unknown) (unknown) (no (unknown) (unknown) Signed By: (units (unk nown) date) unknown) (unknown) (no (unknown) (unknown) Sleep apnea (units (un known) date) (-1989) unknown) (unknown) (no (unknown) (unknown) Smoking Status: (units (unknown) date) Former smoker unknown) (unknown) (no (unknown) (unknown) Social History (units (unknown) date) unknown) (unknown) (no (unknown) (unknown) Sodium Level 143 (units (unknown) date) mmol/L (137-145) unknown) 08/22/16 (unknown) (no (unknown) (unknown) Status post right (units (unknown) date) foot surgery unknown) (-2000) (unknown) (no (unknown) (unknown) Status: Acute (units ( unknown) date) unknown) (unknown) (no (unknown) (unknown) Suboxone. She is (units (unknown) date) followed by Dr. martin Caruso at the [facility]. She (unknown) (no (unknown) (unknown) Surgical History (units (unknown) date) (Reviewed 08/02/22 unknown) @ 05:44 by Rafael Mcgee MD) (unknown) (no (unknown) (unknown) The patient has (units (unknown) date) good motivation. unknown) PHQ-9 score = 06/03. (unknown) (no (unknown) (unknown) This note may have (units (unknown) date) been all or unknown) partially generated using voice recognition (unknown) (no (unknown) (unknown) Tobacco + (units (unkn own) date) Substance Use unknown) (unknown) (no (unknown) (unknown) Tobacco Status (units (unknown) date) unknown) (unknown) (no (unknown) (unknown) Total Bilirubin (units (unknown) date) 0.3 mg/dL (0.2-1.3) unknown) 08/22/16 (unknown) (no (unknown) (unknown) Total Protein 7.5 (units (unknown) date) g/dL (6.3-8.2) unknown) 08/22/16 (unknown) (no (unknown) (unknown) Unspecified (units (un known) date) abdominal pain unknown) (unknown) (no (unknown) (unknown) Visit Reasons: (units (unknown) date) sleeping issues, unknown) fatigue, referral (unknown) (no (unknown) (unknown) Vitals (units (unkno wn) date) unknown) (unknown) (no (unknown) (unknown) Weight 288 lb 2 oz (units (unknown) date) unknown) (unknown) (no (unknown) (unknown) White Blood Count (units (unknown) date) 13.9 X103/uL unknown) (4.5-11) H 08/22/16 (unknown) (no (unknown) (unknown) [History Confirmed (units (unknown) date) 08/02/22] unknown) (unknown) (no (unknown) (unknown) [History Confirmed (units (unknown) date) 06/07/22] unknown) (unknown) (no (unknown) (unknown) abdominal pain with (units (unknown) date) a history of unknown) diverticulitis. She had an abdominal and pelvic (unknown) (no (unknown) (unknown) adverse side (units (u nknown) date) effects. The pain unknown) medication is allowing for an increased overall (unknown) (no (unknown) (unknown) after difficult (units (unknown) date) labor delivering unknown) her son, treated with various medications which (unknown) (no (unknown) (unknown) anhedonia, social (units (unknown) date) withdrawal, or unknown) trouble with memory, focus, or concentration. (unknown) (no (unknown) (unknown) awaken to urinate, (units (unknown) date) jerking awake), unknown) fatigue and a referral to sleep center. (unknown) (no (unknown) (unknown) behaviors, signs (units (unknown) date) of addiction, or unknown) rapid development of tolerance.?She is (unknown) (no (unknown) (unknown) buprenorphine 8 (units (unknown) date) mg-naloxone 2 mg unknown) sublingual film (Suboxone) 1 film sublingual (unknown) (no (unknown) (unknown) bupropion HCl 300 (units (unknown) date) mg 24 hr tablet, unknown) extended release 300 mg PO DAILY 01/03/22 (unknown) (no (unknown) (unknown) condition is (units (u nknown) date) stable. 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 (units (unkn own) date) unknown) (unknown) (no (unknown) (unknown) duloxetine 30 mg (units (unknown) date) capsule,delayed unknown) release (Cymbalta) 30 mg PO BID 08/02/22 (unknown) (no (unknown) (unknown) followed by (units (unknown) date) [facility]. unknown) (unknown) (no (unknown) (unknown) gynecology. (units (un known) date) unknown) (unknown) (no (unknown) (unknown) have occurred. If (units (unknown) date) there are any unknown) questions, please contact the Medical Records (unknown) (no (unknown) (unknown) icterus. No (units (un known) date) injection or unknown) drainage. (unknown) (no (unknown) (unknown) in bowel habits, (units (unknown) date) chest pain, unknown) shortness of breath. She was referred to (unknown) (no (unknown) (unknown) jerking awake), (units (unknown) date) fatigue and unknown) requests a referral to sleep center. (unknown) (no (unknown) (unknown) kratom in 2018 in (units (unknown) date) increasing amounts unknown) and started treatment and was placed on (unknown) (no (unknown) (unknown) level of (units (unkno wn) date) function.? The unknown) patient is not exhibiting any aberrant drug related (unknown) (no (unknown) (unknown) management for (units (unknown) date) chronic back pain.? unknown) The patient is receiving adequate analgesia (unknown) (no (unknown) (unknown) may occur. (units (unk nown) date) Occasional unknown) wrong-word or 'sound-alike' substitutions may have (unknown) (no (unknown) (unknown) meningeal signs. (units (unknown) date) unknown) (unknown) (no (unknown) (unknown) no focal deficits (units (unknown) date) evident. unknown) (unknown) (no (unknown) (unknown) occurred due to (units (unknown) date) the inherent unknown) limitations of voice recognition software. Please (unknown) (no (unknown) (unknown) on the current (units (unknown) date) medication. There unknown) has been no significant medication related (unknown) (no (unknown) (unknown) oxycodone 5 mg (units (unknown) date) tablet 5 mg PO ONCE unknown) pain #1 tab 07/31/22 [Rx] (unknown) (no (unknown) (unknown) oxycodone 5 mg (units (unknown) date) tablet 5 mg PO Q12H unknown) PRN pain, severe #5 tabs 06/07/22 [Rx (unknown) (no (unknown) (unknown) potassium and CT (units (unknown) date) scan was unknown) unremarkable, and was treated for 2 weeks with (unknown) (no (unknown) (unknown) read the note (units ( unknown) date) carefully and unknown) recognize, using context, where these substitutions (unknown) (no (unknown) (unknown) reports chronic (units (unknown) date) pain with a dull unknown) ache and located in the lower back with right (unknown) (no (unknown) (unknown) she was seen for (units (unknown) date) similar more severe unknown) symptoms with diarrhea at [facility] ER with a low (unknown) (no (unknown) (unknown) she weaned off as (units (unknown) date) they didn't seem unknown) particularly effective. She started using (unknown) (no (unknown) (unknown) sided sciatica. (units (unknown) date) Aggravating factors unknown) include rising from sitting, prolonged (unknown) (no (unknown) (unknown) software. 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 (units (unknown) date) Associated symptoms unknown) include difficulty walking. Overall (unknown) (no (unknown) (unknown) the patient, with (units (unknown) date) records not unknown) available at this time. She reports on 12/14/2021 (unknown) (no (unknown) (unknown) trazodone 50 mg (units (unknown) date) tablet 50 mg PO unknown) BEDTIME PRN sleep 01/03/22 [History Confirmed (unknown) (no (unknown) (unknown) ultrasound (units (unk nown) date) 12/28/2021 reporting unknown) uterine fibroids and ovarian cysts according to (unknown) (no (unknown) (unknown) weakness. She has (units (unknown) date) been able to work unknown) through this. No vomiting, bleeding, change (unknown) (no (unknown) (unknown) with sciatica, (units (unknown) date) right side; G89.29 unknown) - Other chronic pain Result panel 39 (unknown) (no (unknown) (unknown) (no value) (units (unk nown) date) unknown) (unknown) (no (unknown) (unknown) (1) Sleep apnea: (units (unknown) date) unknown) (unknown) (no (unknown) (unknown) (2) Chronic (units (un known) date) insomnia: unknown) (unknown) (no (unknown) (unknown) (3) Abdominal (units ( unknown) date) pain: unknown) (unknown) (no (unknown) (unknown) (4) Left ovarian (units (unknown) date) cyst: unknown) (unknown) (no (unknown) (unknown) (5) Chronic low (units (unknown) date) back pain: unknown) (unknown) (no (unknown) (unknown) (6) Chronic, (units (u nknown) date) continuous use of unknown) opioids: (unknown) (no (unknown) (unknown) (7) Severe obesity (units (unknown) date) (BMI >= 40): unknown) (unknown) (no (unknown) (unknown) 08/02/22 (units (unkno wn) date) unknown) (unknown) (no (unknown) (unknown) 08:15 (units (unkno wn) date) unknown) (unknown) (no (unknown) (unknown) 06/07/22] (units (unkn own) date) unknown) (unknown) (no (unknown) (unknown) 17 (units (unkno wn) date) unknown) (unknown) (no (unknown) (unknown) 36 yo female (units (u nknown) date) presents today c/o unknown) sleeping issues (snoring, talking in sleep, (unknown) (no (unknown) (unknown) 11/21 (units (unkno wn) date) unknown) (unknown) (no (unknown) (unknown) ADHD (-1998) (units (u nknown) date) unknown) (unknown) (no (unknown) (unknown) Abdominal (units (unkn own) date) location: unknown) unspecified location Qualified Code(s): R10.9 (unknown) (no (unknown) (unknown) Abdominal pain (units (unknown) date) unknown) (unknown) (no (unknown) (unknown) Abdominal pain: (units (unknown) date) The patient reports unknown) 5-6 years of supra-umbilical to epigastric (unknown) (no (unknown) (unknown) Abnormal Pap smear (units (unknown) date) of cervix unknown) (unknown) (no (unknown) (unknown) Abnormal chest (units (unknown) date) xray (-2014) unknown) (unknown) (no (unknown) (unknown) Accompanied by: (units (unknown) date) Son unknown) (unknown) (no (unknown) (unknown) Adenomyosis: She (units (unknown) date) plans a new IUD unknown) through gynecology. (unknown) (no (unknown) (unknown) Age/Sex: 36 / F (units (unknown) date) Date of Service: unknown) (unknown) (no (unknown) (unknown) Alanine (units (unkno wn) date) Aminotransferase unknown) (ALT/SGPT) 25 IU/L (9-52) 08/08 (unknown) (no (unknown) (unknown) Albumin 4.5 g/dL (units (unknown) date) (3.5-5.0) 08/22/16 unknown) (unknown) (no (unknown) (unknown) Albumin/Globulin (units (unknown) date) Ratio 1.5 (1-2.8) unknown) 08/22/16 (unknown) (no (unknown) (unknown) Alkaline (units (unkno wn) date) Phosphatase 40 U/L unknown) (38-126) 08/22/16 (unknown) (no (unknown) (unknown) All systems (units (un known) date) reviewed + are unknown) unremarkable except as noted in HPI and below (unknown) (no (unknown) (unknown) Allergies (units (unkn own) date) unknown) (unknown) (no (unknown) (unknown) [place], [place] (units ( unknown) date) [id number] unknown) (unknown) (no (unknown) (unknown) Anesthesia (units (unk nown) date) unknown) (unknown) (no (unknown) (unknown) Anxiety (units (unkno wn) date) unknown) (unknown) (no (unknown) (unknown) Anxiety: The (units (u nknown) date) patient reports unknown) symptoms are well controlled on current therapy. (unknown) (no (unknown) (unknown) Aspartate Amino (units (unknown) date) Transf (AST/SGOT) unknown) 19 IU/L (14-36) 08/22/ (unknown) (no (unknown) (unknown) Assessment + Plan (units (unknown) date) unknown) (unknown) (no (unknown) (unknown) Assessment and (units (unknown) date) Plan: unknown) (unknown) (no (unknown) (unknown) Asthma (units (unkno wn) date) unknown) (unknown) (no (unknown) (unknown) Attending Dr: (units ( unknown) date) Rafael Mcgee MD unknown) (unknown) (no (unknown) (unknown) Augmentin for (units ( unknown) date) possible unknown) diverticulitis. She has intermittent nausea, malaise and (unknown) (no (unknown) (unknown) BACK: Nontender (units (unknown) date) without deformity unknown) or crepitance. No flank tenderness. (unknown) (no (unknown) (unknown) BID 01/03/22 (units (u nknown) date) [History Confirmed unknown) 06/07/22] (unknown) (no (unknown) (unknown) BMI 46.5 (units (unkno wn) date) unknown) (unknown) (no (unknown) (unknown) BP 146/75 H (units (un known) date) unknown) (unknown) (no (unknown) (unknown) BUN/Creatinine (units (unknown) date) Ratio 13.3 unknown) (5.8-27.8) 08/22/16 (unknown) (no (unknown) (unknown) Back pain (units (unkn own) date) laterality: unknown) bilateral Sciatica presence: with sciatica (unknown) (no (unknown) (unknown) Blood Pressure (units (unknown) date) Location Lt radial unknown) (unknown) (no (unknown) (unknown) Blood Urea (units (unk nown) date) Nitrogen 8.0 mg/dL unknown) (7-17) 08/22/16 (unknown) (no (unknown) (unknown) CARDIOVASCULAR: (units (unknown) date) Regular rate and unknown) rhythm without murmurs, gallops, or rubs. (unknown) (no (unknown) (unknown) Calcium Level 8.7 (units (unknown) date) mg/dL (8.4-10.2) unknown) 08/22/16 (unknown) (no (unknown) (unknown) Carbon Dioxide (units (unknown) date) Level 25.0 mmol/L unknown) (22-30) 08/22/16 (unknown) (no (unknown) (unknown) Carpal tunnel (units ( unknown) date) syndrome () unknown) (unknown) (no (unknown) (unknown) Cervical cancer (units (unknown) date) () unknown) (unknown) (no (unknown) (unknown) Yptmjsr-Nakff-Evpy (units (unknown) date) h disease unknown) (unknown) (no (unknown) (unknown) Chief Complaint (units (unknown) date) unknown) (unknown) (no (unknown) (unknown) Chief Complaint: (units (unknown) date) Medical followup unknown) (unknown) (no (unknown) (unknown) Chlamydia () (units (unknown) date) unknown) (unknown) (no (unknown) (unknown) Chloride Level (units (unknown) date) 104.0 mmol/L unknown) (98-107) 08/22/16 (unknown) (no (unknown) (unknown) Chronic Low Back (units (unknown) date) Pain: The patient unknown) has a history of chronic back pain since 2004 (unknown) (no (unknown) (unknown) Chronic insomnia (units (unknown) date) unknown) (unknown) (no (unknown) (unknown) Chronic low back (units (unknown) date) pain () unknown) (unknown) (no (unknown) (unknown) Chronic pain (units (u nknown) date) management: The unknown) patient is seen in follow-up for chronic pain (unknown) (no (unknown) (unknown) Chronic, (units (unkno wn) date) continuous use of unknown) opioids (unknown) (no (unknown) (unknown) [facility] (units (unk nown) date) Results- Last: unknown) (unknown) (no (unknown) (unknown) Confirmed (units (unkn own) date) 06/07/22] unknown) (unknown) (no (unknown) (unknown) Const (units (unkno wn) date) unknown) (unknown) (no (unknown) (unknown) Creatinine 0.60 (units (unknown) date) mg/dL (0.52-1.04) unknown) 08/22/16 (unknown) (no (unknown) (unknown) DERMATOLOGIC: No (units (unknown) date) rashes or skin unknown) lesions. (unknown) (no (unknown) (unknown) : 1985 (units (unknown) date) Acct:[id number] unknown) (unknown) (no (unknown) (unknown) Depression (units (unk nown) date) unknown) (unknown) (no (unknown) (unknown) Dept at (units (unkno wn) date) . unknown) (unknown) (no (unknown) (unknown) Details: (units (unkno wn) date) unknown) (unknown) (no (unknown) (unknown) Diverticular (units (u nknown) date) disease (-2020) unknown) (unknown) (no (unknown) (unknown) Documented By: (units (unknown) date) Rafael Mcgee MD unknown) 08/02/22 0543 (unknown) (no (unknown) (unknown) Draft (units (unkno wn) date) unknown) (unknown) (no (unknown) (unknown) ENT: Mucous (units (un known) date) membranes pink and unknown) moist. (unknown) (no (unknown) (unknown) EXTREMITIES: No (units (unknown) date) clubbing, cyanosis, unknown) or edema. (unknown) (no (unknown) (unknown) EYES: Pupils equal (units (unknown) date) round and reactive. unknown) Extraocular motions intact. No scleral (unknown) (no (unknown) (unknown) Exam Narrative (units (unknown) date) unknown) (unknown) (no (unknown) (unknown) Exam Narrative: (units (unknown) date) unknown) (unknown) (no (unknown) (unknown) Exam (units (unkno wn) date) unknown) (unknown) (no (unknown) (unknown) Family History (units (unknown) date) (Reviewed 08/02/22 unknown) @ 05:44 by Rafael Mcgee MD) (unknown) (no (unknown) (unknown) Father History of (units (unknown) date) heart disease unknown) (unknown) (no (unknown) (unknown) Fibromyalgia (units (u nknown) date) () unknown) (unknown) (no (unknown) (unknown) [facility]) (unknown) (no (unknown) (unknown) GASTROINTESTINAL: (units (unknown) date) Abdomen soft, unknown) non-tender, nondistended. (unknown) (no (unknown) (unknown) GENERAL: This is a (units (unknown) date) well-nourished, unknown) well-developed patient, in no apparent (unknown) (no (unknown) (unknown) Globulin 3.0 g/dL (units (unknown) date) (1.7-4.1) 08/22/16 unknown) (unknown) (no (unknown) (unknown) Glucose Level 104 (units (unknown) date) mg/dL (79-115) unknown) 08/22/16 (unknown) (no (unknown) (unknown) Gout (-2016) (units (u nknown) date) unknown) (unknown) (no (unknown) (unknown) H/O LEEP (units (unkno wn) date) unknown) (unknown) (no (unknown) (unknown) H/O laparoscopy (units (unknown) date) () unknown) (unknown) (no (unknown) (unknown) HPI (units (unkno wn) date) unknown) (unknown) (no (unknown) (unknown) Height 5 ft 6 in (units (unknown) date) unknown) (unknown) (no (unknown) (unknown) Hematocrit 42.0 % (units (unknown) date) (36-46) 08/22/16 unknown) (unknown) (no (unknown) (unknown) Hemoglobin 13.9 (units (unknown) date) G/DL (12-16) unknown) 08/22/16 (unknown) (no (unknown) (unknown) Herpes (-2019) (units (unknown) date) unknown) (unknown) (no (unknown) (unknown) History of (units (unk nown) date) unknown) (-08/08/04) (unknown) (no (unknown) (unknown) Human papilloma (units (unknown) date) virus (-2002) unknown) (unknown) (no (unknown) (unknown) Hyperlipidemia (units (unknown) date) unknown) (unknown) (no (unknown) (unknown) Hypertension (units (u nknown) date) unknown) (unknown) (no (unknown) (unknown) Insomnia: The (units ( unknown) date) patient states unknown) symptoms are adequately controlled on trazodone. (unknown) (no (unknown) (unknown) Intake Note: (units (u nknown) date) unknown) (unknown) (no (unknown) (unknown) Intake performed (units (unknown) date) by: Demi Madera unknown) (unknown) (no (unknown) (unknown) Intake (units (unkno wn) date) unknown) (unknown) (no (unknown) (unknown) Intake- Clincial (units (unknown) date) Staff unknown) (unknown) (no (unknown) (unknown) Internal Medicine (units (unknown) date) Office Visit unknown) (unknown) (no (unknown) (unknown) Irritable bowel (units (unknown) date) syndrome () unknown) (unknown) (no (unknown) (unknown) Lab Results (units (un known) date) unknown) (unknown) (no (unknown) (unknown) Left ovarian cyst (units (unknown) date) () unknown) (unknown) (no (unknown) (unknown) Loc: [facility] (units (unkno wn) date) unknown) (unknown) (no (unknown) (unknown) [id number] (units (unk nown) date) unknown) (unknown) (no (unknown) (unknown) Major depression:? (units (unknown) date) The patient reports unknown) good compliance with bupropion and (unknown) (no (unknown) (unknown) Mean Corpuscular (units (unknown) date) Hemoglobin 30.5 PG unknown) (26-34) 08/22/16 (unknown) (no (unknown) (unknown) Mean Corpuscular (units (unknown) date) Hemoglobin Concent unknown) 33.1 % (31-37) 08/08 (unknown) (no (unknown) (unknown) Mean Corpuscular (units (unknown) date) Volume 92.2 FL unknown) (80-100) 08/22/16 (unknown) (no (unknown) (unknown) Medical History (units (unknown) date) (Reviewed 08/02/22 unknown) @ 05:44 by Rafael Mcgee MD) (unknown) (no (unknown) (unknown) Medications (units (un known) date) unknown) (unknown) (no (unknown) (unknown) Mental health (units ( unknown) date) problem unknown) (unknown) (no (unknown) (unknown) Migraines (-2003) (units (unknown) date) unknown) (unknown) (no (unknown) (unknown) Mother Diabetes (units (unknown) date) mellitus unknown) (unknown) (no (unknown) (unknown) NECK: Trachea (units ( unknown) date) midline. No JVD, unknown) bruits or lymphadenopathy. Supple, nontender, no (unknown) (no (unknown) (unknown) NEUROLOGIC: Alert, (units (unknown) date) oriented, speech unknown) fluent, full upper and lower motor strength, (unknown) (no (unknown) (unknown) No Known Drug (units ( unknown) date) Allergies Allergy unknown) (Verified 08/02/22 08:12) (unknown) (no (unknown) (unknown) Orders: (units (unkno wn) date) unknown) (unknown) (no (unknown) (unknown) Oxygen Delivery (units (unknown) date) Method room air unknown) (unknown) (no (unknown) (unknown) PFSH (units (unkno wn) date) unknown) (unknown) (no (unknown) (unknown) Painful menstrual (units (unknown) date) periods unknown) (unknown) (no (unknown) (unknown) Patient: (units (unkno wn) date) Cory Osborne B unknown) MR#: (unknown) (no (unknown) (unknown) Platelet Count 184 (units (unknown) date) X103/uL (150-400) unknown) 08/22/16 (unknown) (no (unknown) (unknown) Position Sitting (units (unknown) date) unknown) (unknown) (no (unknown) (unknown) Potassium Level (units (unknown) date) 4.0 mmol/L unknown) (3.5-5.1) 08/22/16 (unknown) (no (unknown) (unknown) Pulse 85 (units (unkno wn) date) unknown) (unknown) (no (unknown) (unknown) Pulse Oximetry (%) (units (unknown) date) 97 unknown) (unknown) (no (unknown) (unknown) Pulse Source (units (u nknown) date) Monitor unknown) (unknown) (no (unknown) (unknown) Qualifiers: (units (un known) date) unknown) (unknown) (no (unknown) (unknown) RESPIRATORY: Clear (units (unknown) date) to auscultation. unknown) (unknown) (no (unknown) (unknown) ROS (units (unkno wn) date) unknown) (unknown) (no (unknown) (unknown) Reason For Visit (units (unknown) date) unknown) (unknown) (no (unknown) (unknown) Red Blood Count (units (unknown) date) 4.55 X106/uL unknown) (4.0-5.2) 08/22/16 (unknown) (no (unknown) (unknown) Red Cell (units (unkno wn) date) Distribution Width unknown) 12.7 % (11.6-14.8) 08/22/16 (unknown) (no (unknown) (unknown) Referral Sleep (units (unknown) date) Medicine G47.30 - unknown) Sleep apnea, unspecified (unknown) (no (unknown) (unknown) Referrals (units (unkn own) date) unknown) (unknown) (no (unknown) (unknown) Respiration 16 (units (unknown) date) unknown) (unknown) (no (unknown) (unknown) Rule out (units (unkno wn) date) obstructive versus unknown) central sleep apnea. (unknown) (no (unknown) (unknown) Sciatica (units (unkno wn) date) laterality: unknown) sciatica of right side Qualified Code(s): M54.41 - Lumbago (unknown) (no (unknown) (unknown) Severe obesity (units (unknown) date) (BMI >= 40) unknown) (unknown) (no (unknown) (unknown) She meditates and (units (unknown) date) enjoys plants. unknown) (unknown) (no (unknown) (unknown) She reports (units (un known) date) sleeping issues unknown) (snoring, talking in sleep, awaken to urinate, (unknown) (no (unknown) (unknown) Shortness of (units (u nknown) date) breath unknown) (unknown) (no (unknown) (unknown) Signed By: (units (unk nown) date) unknown) (unknown) (no (unknown) (unknown) Sleep apnea (units (un known) date) () unknown) (unknown) (no (unknown) (unknown) Sleep apnea type: (units (unknown) date) unspecified type unknown) Qualified Code(s): G47.30 - Sleep (unknown) (no (unknown) (unknown) Smoking Status: (units (unknown) date) Former smoker unknown) (unknown) (no (unknown) (unknown) Social History (units (unknown) date) unknown) (unknown) (no (unknown) (unknown) Sodium Level 143 (units (unknown) date) mmol/L (137-145) unknown) 08/22/16 (unknown) (no (unknown) (unknown) Status post right (units (unknown) date) foot surgery unknown) () (unknown) (no (unknown) (unknown) Status: Acute (units ( unknown) date) unknown) (unknown) (no (unknown) (unknown) Suboxone. She is (units (unknown) date) followed by unknown) [facility]. She (unknown) (no (unknown) (unknown) Surgical History (units (unknown) date) (Reviewed 08/02/22 unknown) @ 05:44 by Rafael Mcgee MD) (unknown) (no (unknown) (unknown) This note may have (units (unknown) date) been all or unknown) partially generated using voice recognition (unknown) (no (unknown) (unknown) Tobacco + (units (unkn own) date) Substance Use unknown) (unknown) (no (unknown) (unknown) Tobacco Status (units (unknown) date) unknown) (unknown) (no (unknown) (unknown) Total Bilirubin (units (unknown) date) 0.3 mg/dL (0.2-1.3) unknown) 08/22/16 (unknown) (no (unknown) (unknown) Total Protein 7.5 (units (unknown) date) g/dL (6.3-8.2) unknown) 08/22/16 (unknown) (no (unknown) (unknown) Unspecified (units (un known) date) abdominal pain unknown) (unknown) (no (unknown) (unknown) Visit Reasons: (units (unknown) date) sleeping issues, unknown) fatigue, referral (unknown) (no (unknown) (unknown) Vitals (units (unkno wn) date) unknown) (unknown) (no (unknown) (unknown) Weight 288 lb 2 oz (units (unknown) date) unknown) (unknown) (no (unknown) (unknown) White Blood Count (units (unknown) date) 13.9 X103/uL unknown) (4.5-11) H 08/22/16 (unknown) (no (unknown) (unknown) [History Confirmed (units (unknown) date) 08/02/22] unknown) (unknown) (no (unknown) (unknown) [History Confirmed (units (unknown) date) 06/07/22] unknown) (unknown) (no (unknown) (unknown) abdominal pain with (units (unknown) date) a history of unknown) diverticulitis. She had an abdominal and pelvic (unknown) (no (unknown) (unknown) adverse side (units (u nknown) date) effects. The pain unknown) medication is allowing for an increased overall (unknown) (no (unknown) (unknown) after difficult (units (unknown) date) labor delivering unknown) her son, treated with various medications which (unknown) (no (unknown) (unknown) apnea, unspecified (units (unknown) date) unknown) (unknown) (no (unknown) (unknown) awaken to urinate, (units (unknown) date) jerking awake), unknown) fatigue and a referral to sleep center. (unknown) (no (unknown) (unknown) behaviors, signs (units (unknown) date) of addiction, or unknown) rapid development of tolerance.?She is (unknown) (no (unknown) (unknown) buprenorphine 8 (units (unknown) date) mg-naloxone 2 mg unknown) sublingual film (Suboxone) 1 film sublingual (unknown) (no (unknown) (unknown) bupropion HCl 300 (units (unknown) date) mg 24 hr tablet, unknown) extended release 300 mg PO DAILY 01/03/22 (unknown) (no (unknown) (unknown) concentration. The (units (unknown) date) patient has good unknown) motivation. (unknown) (no (unknown) (unknown) condition is (units (u nknown) date) stable. 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 (units (unkn own) date) unknown) (unknown) (no (unknown) (unknown) duloxetine 30 mg (units (unknown) date) capsule,delayed unknown) release (Cymbalta) 30 mg PO BID 08/02/22 (unknown) (no (unknown) (unknown) duloxetine, and (units (unknown) date) denies adverse side unknown) effects to the medication, and reports (unknown) (no (unknown) (unknown) feeling mildly (units (unknown) date) depressed, unknown) irritable, cranky, fatigued, easily tearful, sleep (unknown) (no (unknown) (unknown) followed by (units (unknown) date) [facility]. unknown) (unknown) (no (unknown) (unknown) gynecology. (units (un known) date) unknown) (unknown) (no (unknown) (unknown) have occurred. If (units (unknown) date) there are any unknown) questions, please contact the Medical Records (unknown) (no (unknown) (unknown) icterus. No (units (un known) date) injection or unknown) drainage. (unknown) (no (unknown) (unknown) in bowel habits, (units (unknown) date) chest pain, unknown) shortness of breath. She was referred to (unknown) (no (unknown) (unknown) jerking awake), (units (unknown) date) fatigue and unknown) requests a referral to sleep center. (unknown) (no (unknown) (unknown) alizatom in 2018 in (units (unknown) date) increasing amounts unknown) and started treatment and was placed on (unknown) (no (unknown) (unknown) level of (units (unkno wn) date) function.? The unknown) patient is not exhibiting any aberrant drug related (unknown) (no (unknown) (unknown) management for (units (unknown) date) chronic back pain.? unknown) The patient is receiving adequate analgesia (unknown) (no (unknown) (unknown) may occur. (units (unk nown) date) Occasional unknown) wrong-word or 'sound-alike' substitutions may have (unknown) (no (unknown) (unknown) meningeal signs. (units (unknown) date) unknown) (unknown) (no (unknown) (unknown) no focal deficits (units (unknown) date) evident. unknown) (unknown) (no (unknown) (unknown) occurred due to (units (unknown) date) the inherent unknown) limitations of voice recognition software. Please (unknown) (no (unknown) (unknown) on the current (units (unknown) date) medication. There unknown) has been no significant medication related (unknown) (no (unknown) (unknown) oxycodone 5 mg (units (unknown) date) tablet 5 mg PO ONCE unknown) pain #1 tab 07/31/22 [Rx] (unknown) (no (unknown) (unknown) oxycodone 5 mg (units (unknown) date) tablet 5 mg PO Q12H unknown) PRN pain, severe #5 tabs 06/07/22 [Rx (unknown) (no (unknown) (unknown) potassium and CT (units (unknown) date) scan was unknown) unremarkable, and was treated for 2 weeks with (unknown) (no (unknown) (unknown) read the note (units ( unknown) date) carefully and unknown) recognize, using context, where these substitutions (unknown) (no (unknown) (unknown) reports chronic (units (unknown) date) pain with a dull unknown) ache and located in the lower back with right (unknown) (no (unknown) (unknown) she was seen for (units (unknown) date) similar more severe unknown) symptoms with diarrhea at [facility] ER with a low (unknown) (no (unknown) (unknown) she weaned off as (units (unknown) date) they didn't seem unknown) particularly effective. She started using (unknown) (no (unknown) (unknown) sided sciatica. (units (unknown) date) Aggravating factors unknown) include rising from sitting, prolonged (unknown) (no (unknown) (unknown) software. 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 (units (unknown) date) Associated symptoms unknown) include difficulty walking. Overall (unknown) (no (unknown) (unknown) the patient, with (units (unknown) date) records not unknown) available at this time. She reports on 12/14/2021 (unknown) (no (unknown) (unknown) trazodone 50 mg (units (unknown) date) tablet 50 mg PO unknown) BEDTIME PRN sleep 01/03/22 [History Confirmed (unknown) (no (unknown) (unknown) troubles, (units (unkn own) date) anhedonia, social unknown) withdrawal, or trouble with memory, focus, or (unknown) (no (unknown) (unknown) ultrasound (units (unk nown) date) 12/28/2021 reporting unknown) uterine fibroids and ovarian cysts according to (unknown) (no (unknown) (unknown) weakness. She has (units (unknown) date) been able to work unknown) through this. No vomiting, bleeding, change (unknown) (no (unknown) (unknown) with sciatica, (units (unknown) date) right side; G89.29 unknown) - Other chronic pain Result panel 40 (unknown) (no (unknown) (unknown) (no value) (units (unk nown) date) unknown) (unknown) (no (unknown) (unknown) (1) Sleep apnea: (units (unknown) date) unknown) (unknown) (no (unknown) (unknown) (2) Other fatigue: (units (unknown) date) unknown) (unknown) (no (unknown) (unknown) (3) Chronic (units (un known) date) insomnia: unknown) (unknown) (no (unknown) (unknown) (4) Abdominal (units ( unknown) date) pain: unknown) (unknown) (no (unknown) (unknown) (5) Left ovarian (units (unknown) date) cyst: unknown) (unknown) (no (unknown) (unknown) (6) Chronic low (units (unknown) date) back pain: unknown) (unknown) (no (unknown) (unknown) (7) Chronic, (units (u nknown) date) continuous use of unknown) opioids: (unknown) (no (unknown) (unknown) (8) Severe obesity (units (unknown) date) (BMI >= 40): unknown) (unknown) (no (unknown) (unknown) (9) Right knee (units (unknown) date) pain: unknown) (unknown) (no (unknown) (unknown) 08/02/22 (units (unkno wn) date) unknown) (unknown) (no (unknown) (unknown) 08:15 (units (unkno wn) date) unknown) (unknown) (no (unknown) (unknown) 06/07/22] (units (unkn own) date) unknown) (unknown) (no (unknown) (unknown) (units (unkno wn) date) unknown) (unknown) (no (unknown) (unknown) 36 yo female (units (u nknown) date) presents today c/o unknown) sleeping issues (snoring, talking in sleep, (unknown) (no (unknown) (unknown) 11/21 (units (unkno wn) date) unknown) (unknown) (no (unknown) (unknown) ADHD (-1998) (units (u nknown) date) unknown) (unknown) (no (unknown) (unknown) Abdominal (units (unkn own) date) location: unknown) unspecified location Qualified Code(s): R10.9 (unknown) (no (unknown) (unknown) Abdominal pain (units (unknown) date) unknown) (unknown) (no (unknown) (unknown) Abdominal pain: (units (unknown) date) The patient reports unknown) 5-6 years of supra-umbilical to epigastric (unknown) (no (unknown) (unknown) Abnormal Pap smear (units (unknown) date) of cervix unknown) (unknown) (no (unknown) (unknown) Abnormal chest (units (unknown) date) xray (-2014) unknown) (unknown) (no (unknown) (unknown) Accompanied by: (units (unknown) date) Son unknown) (unknown) (no (unknown) (unknown) Adenomyosis: She (units (unknown) date) plans a new IUD unknown) through gynecology. (unknown) (no (unknown) (unknown) Age/Sex: 36 / F (units (unknown) date) Date of Service: unknown) (unknown) (no (unknown) (unknown) Alanine (units (unkno wn) date) Aminotransferase unknown) (ALT/SGPT) 25 IU/L (9-52) 08/08 (unknown) (no (unknown) (unknown) Albumin 4.5 g/dL (units (unknown) date) (3.5-5.0) 08/22/16 unknown) (unknown) (no (unknown) (unknown) Albumin/Globulin (units (unknown) date) Ratio 1.5 (1-2.8) unknown) 08/22/16 (unknown) (no (unknown) (unknown) Alkaline (units (unkno wn) date) Phosphatase 40 U/L unknown) (38-126) 08/22/16 (unknown) (no (unknown) (unknown) All systems (units (un known) date) reviewed + are unknown) unremarkable except as noted in HPI and below (unknown) (no (unknown) (unknown) Allergies (units (unkn own) date) unknown) (unknown) (no (unknown) (unknown) [place], [place] (units ( unknown) date) [id number] unknown) (unknown) (no (unknown) (unknown) Anesthesia (units (unk nown) date) unknown) (unknown) (no (unknown) (unknown) Anxiety (units (unkno wn) date) unknown) (unknown) (no (unknown) (unknown) Anxiety: The (units (u nknown) date) patient reports unknown) symptoms are well controlled on current therapy. (unknown) (no (unknown) (unknown) Aspartate Amino (units (unknown) date) Transf (AST/SGOT) unknown) 19 IU/L (14-36) 08/22/ (unknown) (no (unknown) (unknown) Assessment + Plan (units (unknown) date) unknown) (unknown) (no (unknown) (unknown) Assessment and (units (unknown) date) Plan: unknown) (unknown) (no (unknown) (unknown) Asthma (units (unkno wn) date) unknown) (unknown) (no (unknown) (unknown) Attending Dr: (units ( unknown) date) Rafael Mcgee MD unknown) (unknown) (no (unknown) (unknown) Augmentin for (units ( unknown) date) possible unknown) diverticulitis. She has intermittent nausea, malaise and (unknown) (no (unknown) (unknown) BACK: Nontender (units (unknown) date) without deformity unknown) or crepitance. No flank tenderness. (unknown) (no (unknown) (unknown) BID 01/03/22 (units (u nknown) date) [History Confirmed unknown) 06/07/22] (unknown) (no (unknown) (unknown) BMI 46.5 (units (unkno wn) date) unknown) (unknown) (no (unknown) (unknown) BP 146/75 H (units (un known) date) unknown) (unknown) (no (unknown) (unknown) BUN/Creatinine (units (unknown) date) Ratio 13.3 unknown) (5.8-27.8) 08/22/16 (unknown) (no (unknown) (unknown) Back pain (units (unkn own) date) laterality: unknown) bilateral Sciatica presence: with sciatica (unknown) (no (unknown) (unknown) Blood Pressure (units (unknown) date) Location Lt radial unknown) (unknown) (no (unknown) (unknown) Blood Urea (units (unk nown) date) Nitrogen 8.0 mg/dL unknown) (-17) 08/22/16 (unknown) (no (unknown) (unknown) CARDIOVASCULAR: (units (unknown) date) Regular rate and unknown) rhythm without murmurs, gallops, or rubs. (unknown) (no (unknown) (unknown) Calcium Level 8.7 (units (unknown) date) mg/dL (8.4-10.2) unknown) 08/22/16 (unknown) (no (unknown) (unknown) Carbon Dioxide (units (unknown) date) Level 25.0 mmol/L unknown) (22-30) 08/22/16 (unknown) (no (unknown) (unknown) Carpal tunnel (units ( unknown) date) syndrome () unknown) (unknown) (no (unknown) (unknown) Cervical cancer (units (unknown) date) (-2002) unknown) (unknown) (no (unknown) (unknown) Zuvhhiv-Jfqct-Iqoy (units (unknown) date) h disease unknown) (unknown) (no (unknown) (unknown) Chief Complaint (units (unknown) date) unknown) (unknown) (no (unknown) (unknown) Chief Complaint: (units (unknown) date) Medical followup unknown) (unknown) (no (unknown) (unknown) Chlamydia () (units (unknown) date) unknown) (unknown) (no (unknown) (unknown) Chloride Level (units (unknown) date) 104.0 mmol/L unknown) (98-107) 08/22/16 (unknown) (no (unknown) (unknown) Chronic Low Back (units (unknown) date) Pain: The patient unknown) has a history of chronic back pain since 2004 (unknown) (no (unknown) (unknown) Chronic insomnia (units (unknown) date) unknown) (unknown) (no (unknown) (unknown) Chronic low back (units (unknown) date) pain () unknown) (unknown) (no (unknown) (unknown) Chronic pain (units (u nknown) date) management: The unknown) patient is seen in follow-up for chronic pain (unknown) (no (unknown) (unknown) Chronic, (units (unkno wn) date) continuous use of unknown) opioids (unknown) (no (unknown) (unknown) [facility] (units (unk nown) date) Results- Last: unknown) (unknown) (no (unknown) (unknown) Complete Blood (units (unknown) date) Count NO DIFF Today unknown) E78.2 - Mixed hyperlipidemia, G47.30 - Sleep (unknown) (no (unknown) (unknown) Comprehensive (units (u nknown) date) Metabolic Panel unknown) Today E78.2 - Mixed hyperlipidemia, G47.30 - Sleep (unknown) (no (unknown) (unknown) Confirmed (units (unkn own) date) 06/07/22] unknown) (unknown) (no (unknown) (unknown) Const (units (unkno wn) date) unknown) (unknown) (no (unknown) (unknown) Consume fewer (units ( unknown) date) calories (eat less) unknown) and burn more calories (move more) to achieve (unknown) (no (unknown) (unknown) Creatinine 0.60 (units (unknown) date) mg/dL (0.52-1.04) unknown) 08/22/16 (unknown) (no (unknown) (unknown) DERMATOLOGIC: No (units (unknown) date) rashes or skin unknown) lesions. (unknown) (no (unknown) (unknown) : 1985 (units (unknown) date) Acct:[id number] unknown) (unknown) (no (unknown) (unknown) Depression (units (unk nown) date) unknown) (unknown) (no (unknown) (unknown) Dept at (units (unkno wn) date) . unknown) (unknown) (no (unknown) (unknown) Details: (units (unkno wn) date) unknown) (unknown) (no (unknown) (unknown) Diverticular (units (u nknown) date) disease () unknown) (unknown) (no (unknown) (unknown) Documented By: (units (unknown) date) Rafael Mcgee MD unknown) 08/02/22 0543 (unknown) (no (unknown) (unknown) Draft (units (unkno wn) date) unknown) (unknown) (no (unknown) (unknown) ENT: Mucous (units (un known) date) membranes pink and unknown) moist. (unknown) (no (unknown) (unknown) EXTREMITIES: No (units (unknown) date) clubbing, cyanosis, unknown) or edema. (unknown) (no (unknown) (unknown) EYES: Pupils equal (units (unknown) date) round and reactive. unknown) Extraocular motions intact. No scleral (unknown) (no (unknown) (unknown) Exam Narrative (units (unknown) date) unknown) (unknown) (no (unknown) (unknown) Exam Narrative: (units (unknown) date) unknown) (unknown) (no (unknown) (unknown) Exam (units (unkno wn) date) unknown) (unknown) (no (unknown) (unknown) Family History (units (unknown) date) (Reviewed 08/02/22 unknown) @ 05:44 by Rafael Mcgee MD) (unknown) (no (unknown) (unknown) Father History of (units (unknown) date) heart disease unknown) (unknown) (no (unknown) (unknown) Fibromyalgia (units (u nknown) date) (-2016) unknown) (unknown) (no (unknown) (unknown) [facility]) (unknown) (no (unknown) (unknown) Followup in 6 (units ( unknown) date) months. unknown) (unknown) (no (unknown) (unknown) For knee pain, (units (unknown) date) practice quarter unknown) squats: Feet parallel, shoulder-width apart, (unknown) (no (unknown) (unknown) GASTROINTESTINAL: (units (unknown) date) Abdomen soft, unknown) non-tender, nondistended. (unknown) (no (unknown) (unknown) GENERAL: This is a (units (unknown) date) well-nourished, unknown) well-developed patient, in no apparent (unknown) (no (unknown) (unknown) Globulin 3.0 g/dL (units (unknown) date) (1.7-4.1) 08/22/16 unknown) (unknown) (no (unknown) (unknown) Glucose Level 104 (units (unknown) date) mg/dL (79-115) unknown) 08/22/16 (unknown) (no (unknown) (unknown) Gout (-2016) (units (u nknown) date) unknown) (unknown) (no (unknown) (unknown) H/O LEEP (units (unkno wn) date) unknown) (unknown) (no (unknown) (unknown) H/O laparoscopy (units (unknown) date) () unknown) (unknown) (no (unknown) (unknown) HPI (units (unkno wn) date) unknown) (unknown) (no (unknown) (unknown) Height 5 ft 6 in (units (unknown) date) unknown) (unknown) (no (unknown) (unknown) Hematocrit 42.0 % (units (unknown) date) (36-46) 08/22/16 unknown) (unknown) (no (unknown) (unknown) Hemoglobin 13.9 (units (unknown) date) G/DL (12-16) unknown) 08/22/16 (unknown) (no (unknown) (unknown) Herpes (-2019) (units (unknown) date) unknown) (unknown) (no (unknown) (unknown) History of (units (unk nown) date) unknown) (-08/08/04) (unknown) (no (unknown) (unknown) Human papilloma (units (unknown) date) virus (-2002) unknown) (unknown) (no (unknown) (unknown) Hyperlipidemia (units (unknown) date) unknown) (unknown) (no (unknown) (unknown) Hypertension (units (u nknown) date) unknown) (unknown) (no (unknown) (unknown) Insomnia: The (units ( unknown) date) patient states unknown) symptoms are adequately controlled on trazodone. (unknown) (no (unknown) (unknown) Intake Note: (units (u nknown) date) unknown) (unknown) (no (unknown) (unknown) Intake performed (units (unknown) date) by: Demi Madera unknown) (unknown) (no (unknown) (unknown) Intake (units (unkno wn) date) unknown) (unknown) (no (unknown) (unknown) Intake- Clincial (units (unknown) date) Staff unknown) (unknown) (no (unknown) (unknown) Internal Medicine (units (unknown) date) Office Visit unknown) (unknown) (no (unknown) (unknown) Irritable bowel (units (unknown) date) syndrome () unknown) (unknown) (no (unknown) (unknown) It was very nice (units (unknown) date) to meet with you unknown) today! (unknown) (no (unknown) (unknown) Lab Results (units (un known) date) unknown) (unknown) (no (unknown) (unknown) Labwork is ordered (units (unknown) date) today to evaluate unknown) your condition. Results will be posted to (unknown) (no (unknown) (unknown) Left ovarian cyst (units (unknown) date) () unknown) (unknown) (no (unknown) (unknown) Lipid Panel Today (units (unknown) date) E78.2 - Mixed unknown) hyperlipidemia, G47.30 - Sleep apnea, (unknown) (no (unknown) (unknown) Loc: [facility] (units (unkno wn) date) unknown) (unknown) (no (unknown) (unknown) [id number] (units (unk nown) date) unknown) (unknown) (no (unknown) (unknown) Major depression:? (units (unknown) date) The patient reports unknown) good compliance with bupropion and (unknown) (no (unknown) (unknown) Mean Corpuscular (units (unknown) date) Hemoglobin 30.5 PG unknown) (26-34) 08/22/16 (unknown) (no (unknown) (unknown) Mean Corpuscular (units (unknown) date) Hemoglobin Concent unknown) 33.1 % (31-37) 08/08 (unknown) (no (unknown) (unknown) Mean Corpuscular (units (unknown) date) Volume 92.2 FL unknown) (80-100) 08/22/16 (unknown) (no (unknown) (unknown) Medical History (units (unknown) date) (Reviewed 08/02/22 unknown) @ 05:44 by Rafael Mcgee MD) (unknown) (no (unknown) (unknown) Medications (units (un known) date) unknown) (unknown) (no (unknown) (unknown) Mental health (units ( unknown) date) problem unknown) (unknown) (no (unknown) (unknown) Migraines (-2003) (units (unknown) date) unknown) (unknown) (no (unknown) (unknown) Mother Diabetes (units (unknown) date) mellitus unknown) (unknown) (no (unknown) (unknown) NECK: Trachea (units ( unknown) date) midline. No JVD, unknown) bruits or lymphadenopathy. Supple, nontender, no (unknown) (no (unknown) (unknown) NEUROLOGIC: Alert, (units (unknown) date) oriented, speech unknown) fluent, full upper and lower motor strength, (unknown) (no (unknown) (unknown) No Known Drug (units ( unknown) date) Allergies Allergy unknown) (Verified 08/02/22 08:12) (unknown) (no (unknown) (unknown) Orders (units (unkno wn) date) unknown) (unknown) (no (unknown) (unknown) Orders: (units (unkno wn) date) unknown) (unknown) (no (unknown) (unknown) Oxygen Delivery (units (unknown) date) Method room air unknown) (unknown) (no (unknown) (unknown) PFSH (units (unkno wn) date) unknown) (unknown) (no (unknown) (unknown) Painful menstrual (units (unknown) date) periods unknown) (unknown) (no (unknown) (unknown) Patient: (units (unkno wn) date) Cory Osborne B unknown) MR#: (unknown) (no (unknown) (unknown) Plan (units (unkno wn) date) unknown) (unknown) (no (unknown) (unknown) Platelet Count 184 (units (unknown) date) X103/uL (150-400) unknown) 08/22/16 (unknown) (no (unknown) (unknown) Position Sitting (units (unknown) date) unknown) (unknown) (no (unknown) (unknown) Potassium Level (units (unknown) date) 4.0 mmol/L unknown) (3.5-5.1) 08/22/16 (unknown) (no (unknown) (unknown) Pulse 85 (units (unkno wn) date) unknown) (unknown) (no (unknown) (unknown) Pulse Oximetry (%) (units (unknown) date) 97 unknown) (unknown) (no (unknown) (unknown) Pulse Source (units (u nknown) date) Monitor unknown) (unknown) (no (unknown) (unknown) Qualifiers: (units (un known) date) unknown) (unknown) (no (unknown) (unknown) RESPIRATORY: Clear (units (unknown) date) to auscultation. unknown) (unknown) (no (unknown) (unknown) ROS (units (unkno wn) date) unknown) (unknown) (no (unknown) (unknown) Reason For Visit (units (unknown) date) unknown) (unknown) (no (unknown) (unknown) Red Blood Count (units (unknown) date) 4.55 X106/uL unknown) (4.0-5.2) 08/22/16 (unknown) (no (unknown) (unknown) Red Cell (units (unkno wn) date) Distribution Width unknown) 12.7 % (11.6-14.8) 08/22/16 (unknown) (no (unknown) (unknown) Referral Sleep (units (unknown) date) Medicine G47.30 - unknown) Sleep apnea, unspecified (unknown) (no (unknown) (unknown) Referrals (units (unkn own) date) unknown) (unknown) (no (unknown) (unknown) Respiration 16 (units (unknown) date) unknown) (unknown) (no (unknown) (unknown) Right knee pain: (units (unknown) date) The patient reports unknown) right knee pain the past couple of months. (unknown) (no (unknown) (unknown) Rule out (units (unkno wn) date) obstructive versus unknown) central sleep apnea. (unknown) (no (unknown) (unknown) Sciatica (units (unkno wn) date) laterality: unknown) sciatica of right side Qualified Code(s): M54.41 - Lumbago (unknown) (no (unknown) (unknown) Severe obesity (units (unknown) date) (BMI >= 40) unknown) (unknown) (no (unknown) (unknown) She meditates and (units (unknown) date) enjoys plants. unknown) (unknown) (no (unknown) (unknown) She reports (units (un known) date) sleeping issues unknown) (snoring, talking in sleep, awaken to urinate, (unknown) (no (unknown) (unknown) She states she had (units (unknown) date) bloodwork and xrays unknown) at the walk-in clinic in [place] and (unknown) (no (unknown) (unknown) Shortness of (units (u nknown) date) breath unknown) (unknown) (no (unknown) (unknown) Signed By: (units (unk nown) date) unknown) (unknown) (no (unknown) (unknown) Sleep apnea (units (un known) date) () unknown) (unknown) (no (unknown) (unknown) Sleep apnea type: (units (unknown) date) unspecified type unknown) Qualified Code(s): G47.30 - Sleep (unknown) (no (unknown) (unknown) Smoking Status: (units (unknown) date) Former smoker unknown) (unknown) (no (unknown) (unknown) Social History (units (unknown) date) unknown) (unknown) (no (unknown) (unknown) Sodium Level 143 (units (unknown) date) mmol/L (137-145) unknown) 08/22/16 (unknown) (no (unknown) (unknown) Status post right (units (unknown) date) foot surgery unknown) (-2000) (unknown) (no (unknown) (unknown) Status: Acute (units ( unknown) date) unknown) (unknown) (no (unknown) (unknown) Suboxone. She is (units (unknown) date) followed by Dr. martin Caruso at the [facility]. She (unknown) (no (unknown) (unknown) Surgical History (units (unknown) date) (Reviewed 08/02/22 unknown) @ 05:44 by Rafael Mcgee MD) (unknown) (no (unknown) (unknown) TSH w/ Reflex to (units (unknown) date) FT4 Today E78.2 - unknown) Mixed hyperlipidemia, G47.30 - Sleep apnea, (unknown) (no (unknown) (unknown) This note may have (units (unknown) date) been all or unknown) partially generated using voice recognition (unknown) (no (unknown) (unknown) Tobacco + (units (unkn own) date) Substance Use unknown) (unknown) (no (unknown) (unknown) Tobacco Status (units (unknown) date) unknown) (unknown) (no (unknown) (unknown) Total Bilirubin (units (unknown) date) 0.3 mg/dL (0.2-1.3) unknown) 08/22/16 (unknown) (no (unknown) (unknown) Total Protein 7.5 (units (unknown) date) g/dL (6.3-8.2) unknown) 08/22/16 (unknown) (no (unknown) (unknown) Unspecified (units (un known) date) abdominal pain unknown) (unknown) (no (unknown) (unknown) Visit Reasons: (units (unknown) date) sleeping issues, unknown) fatigue, referral (unknown) (no (unknown) (unknown) Vitals (units (unkno wn) date) unknown) (unknown) (no (unknown) (unknown) Weight 288 lb 2 oz (units (unknown) date) unknown) (unknown) (no (unknown) (unknown) White Blood Count (units (unknown) date) 13.9 X103/uL unknown) (4.5-11) H 08/22/16 (unknown) (no (unknown) (unknown) You are referred (units (unknown) date) for sleep medicine unknown) consultation for evaluation and management (unknown) (no (unknown) (unknown) You need to lose (units (unknown) date) weight for your unknown) general health. Regular physical activity and (unknown) (no (unknown) (unknown) Your blood (units (unk nown) date) pressure is unknown) elevated today. Monitor and let us know if consistently (unknown) (no (unknown) (unknown) Your medical (units (u nknown) date) condition appears unknown) stable at this point. Continue your current (unknown) (no (unknown) (unknown) [History Confirmed (units (unknown) date) 08/02/22] unknown) (unknown) (no (unknown) (unknown) [History Confirmed (units (unknown) date) 06/07/22] unknown) (unknown) (no (unknown) (unknown) abdominal pain with (units (unknown) date) a history of unknown) diverticulitis. She had an abdominal and pelvic (unknown) (no (unknown) (unknown) adverse side (units (u nknown) date) effects. The pain unknown) medication is allowing for an increased overall (unknown) (no (unknown) (unknown) after difficult (units (unknown) date) labor delivering unknown) her son, treated with various medications which (unknown) (no (unknown) (unknown) apnea, unspecified (units (unknown) date) unknown) (unknown) (no (unknown) (unknown) apnea, (units (unkno wn) date) unspecified, R53.83 unknown) - Other fatigue (unknown) (no (unknown) (unknown) awaken to urinate, (units (unknown) date) jerking awake), unknown) fatigue and a referral to sleep center. (unknown) (no (unknown) (unknown) behaviors, signs (units (unknown) date) of addiction, or unknown) rapid development of tolerance.?She is (unknown) (no (unknown) (unknown) buprenorphine 8 (units (unknown) date) mg-naloxone 2 mg unknown) sublingual film (Suboxone) 1 film sublingual (unknown) (no (unknown) (unknown) bupropion HCl 300 (units (unknown) date) mg 24 hr tablet, unknown) extended release 300 mg PO DAILY 01/03/22 (unknown) (no (unknown) (unknown) concentration. The (units (unknown) date) patient has good unknown) motivation. (unknown) (no (unknown) (unknown) condition is (units (u nknown) date) stable. unknown) (unknown) (no (unknown) (unknown) days weekly for (units (unknown) date) 30-60 minutes and unknown) limiting fats. Work on your 'energy equation'. 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 She has pain in the knee waking (unknown) (no (unknown) (unknown) distress. (units (unkn own) date) unknown) (unknown) (no (unknown) (unknown) duloxetine 30 mg (units (unknown) date) capsule,delayed unknown) release (Cymbalta) 30 mg PO BID 08/02/22 (unknown) (no (unknown) (unknown) duloxetine, and (units (unknown) date) denies adverse side unknown) effects to the medication, and reports (unknown) (no (unknown) (unknown) feeling mildly (units (unknown) date) depressed, unknown) irritable, cranky, fatigued, easily tearful, sleep (unknown) (no (unknown) (unknown) followed by (units (unknown) date) [facility]. unknown) (unknown) (no (unknown) (unknown) good biomechanics (units (unknown) date) with activity to unknown) prevent and manage leg pain. Let us know if (unknown) (no (unknown) (unknown) gynecology. (units (un known) date) unknown) (unknown) (no (unknown) (unknown) have occurred. If (units (unknown) date) there are any unknown) questions, please contact the Medical Records (unknown) (no (unknown) (unknown) healthy diet is (units (unknown) date) strongly unknown) recommended, including regular aerobic exercise most (unknown) (no (unknown) (unknown) icterus. No (units (un known) date) injection or unknown) drainage. (unknown) (no (unknown) (unknown) in bowel habits, (units (unknown) date) chest pain, unknown) shortness of breath. She was referred to (unknown) (no (unknown) (unknown) in the night with (units (unknown) date) turning over in unknown) bed, as well as during the day when walking. (unknown) (no (unknown) (unknown) jerking awake), (units (unknown) date) fatigue and unknown) requests a referral to sleep center. (unknown) (no (unknown) (unknown) kratom in 2018 in (units (unknown) date) increasing amounts unknown) and started treatment and was placed on (unknown) (no (unknown) (unknown) level of (units (unkno wn) date) function.? The unknown) patient is not exhibiting any aberrant drug related (unknown) (no (unknown) (unknown) management for (units (unknown) date) chronic back pain.? unknown) The patient is receiving adequate analgesia (unknown) (no (unknown) (unknown) may occur. (units (unk nown) date) Occasional unknown) wrong-word or 'sound-alike' substitutions may have (unknown) (no (unknown) (unknown) medications. (units (u nknown) date) unknown) (unknown) (no (unknown) (unknown) meningeal signs. (units (unknown) date) unknown) (unknown) (no (unknown) (unknown) no focal deficits (units (unknown) date) evident. unknown) (unknown) (no (unknown) (unknown) occurred due to (units (unknown) date) the inherent unknown) limitations of voice recognition software. Please (unknown) (no (unknown) (unknown) of sleep apnea. (units (unknown) date) unknown) (unknown) (no (unknown) (unknown) on the current (units (unknown) date) medication. There unknown) has been no significant medication related (unknown) (no (unknown) (unknown) over 140/90. (units (u nknown) date) unknown) (unknown) (no (unknown) (unknown) oxycodone 5 mg (units (unknown) date) tablet 5 mg PO ONCE unknown) pain #1 tab 07/31/22 [Rx] (unknown) (no (unknown) (unknown) oxycodone 5 mg (units (unknown) date) tablet 5 mg PO Q12H unknown) PRN pain, severe #5 tabs 06/07/22 [Rx (unknown) (no (unknown) (unknown) potassium and CT (units (unknown) date) scan was unknown) unremarkable, and was treated for 2 weeks with (unknown) (no (unknown) (unknown) read the note (units ( unknown) date) carefully and unknown) recognize, using context, where these substitutions (unknown) (no (unknown) (unknown) reports chronic (units (unknown) date) pain with a dull unknown) ache and located in the lower back with right (unknown) (no (unknown) (unknown) she was seen for (units (unknown) date) similar more severe unknown) symptoms with diarrhea at [facility] ER with a low (unknown) (no (unknown) (unknown) she weaned off as (units (unknown) date) they didn't seem unknown) particularly effective. She started using (unknown) (no (unknown) (unknown) sided sciatica. (units (unknown) date) Aggravating factors unknown) include rising from sitting, prolonged (unknown) (no (unknown) (unknown) software. 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 (units (unknown) date) Associated symptoms unknown) include difficulty walking. Overall (unknown) (no (unknown) (unknown) the patient (units (un known) date) portal. Let us know unknown) if you have any questions or concerns. (unknown) (no (unknown) (unknown) the patient, with (units (unknown) date) records not unknown) available at this time. She reports on 12/14/2021 (unknown) (no (unknown) (unknown) trazodone 50 mg (units (unknown) date) tablet 50 mg PO unknown) BEDTIME PRN sleep 01/03/22 [History Confirmed (unknown) (no (unknown) (unknown) troubles, (units (unkn own) date) anhedonia, social unknown) withdrawal, or trouble with memory, focus, or (unknown) (no (unknown) (unknown) ultrasound (units (unk nown) date) 12/28/2021 reporting unknown) uterine fibroids and ovarian cysts according to (unknown) (no (unknown) (unknown) unspecified, (units (u nknown) date) R53.83 - Other unknown) fatigue (unknown) (no (unknown) (unknown) weakness. She has (units (unknown) date) been able to work unknown) through this. No vomiting, bleeding, change (unknown) (no (unknown) (unknown) with kneecaps over (units (unknown) date) big toes. Perform unknown) 15-20 repetitions 1-2 times daily. Maintain (unknown) (no (unknown) (unknown) with sciatica, (units (unknown) date) right side; G89.29 unknown) - Other chronic pain (unknown) (no (unknown) (unknown) you have any (units (u nknown) date) problems. unknown) (unknown) (no (unknown) (unknown) your weight loss (units (unknown) date) goals. unknown) Result panel 41 (unknown) (no (unknown) (unknown) (no value) (units (unk nown) date) unknown) (unknown) (no (unknown) (unknown) (1) Sleep apnea: (units (unknown) date) unknown) (unknown) (no (unknown) (unknown) (2) Other fatigue: (units (unknown) date) unknown) (unknown) (no (unknown) (unknown) (3) Chronic (units (un known) date) insomnia: unknown) (unknown) (no (unknown) (unknown) (4) Abdominal (units ( unknown) date) pain: unknown) (unknown) (no (unknown) (unknown) (5) Left ovarian (units (unknown) date) cyst: unknown) (unknown) (no (unknown) (unknown) (6) Chronic low (units (unknown) date) back pain: unknown) (unknown) (no (unknown) (unknown) (7) Chronic, (units (u nknown) date) continuous use of unknown) opioids: (unknown) (no (unknown) (unknown) (8) Severe obesity (units (unknown) date) (BMI >= 40): unknown) (unknown) (no (unknown) (unknown) (9) Right knee (units (unknown) date) pain: unknown) (unknown) (no (unknown) (unknown) 08/02/22 (units (unkno wn) date) unknown) (unknown) (no (unknown) (unknown) 08:15 (units (unkno wn) date) unknown) (unknown) (no (unknown) (unknown) 06/07/22] (units (unkn own) date) unknown) (unknown) (no (unknown) (unknown) (units (unkno wn) date) unknown) (unknown) (no (unknown) (unknown) 36 yo female (units (u nknown) date) presents today c/o unknown) sleeping issues (snoring, talking in sleep, (unknown) (no (unknown) (unknown) 11/21 (units (unkno wn) date) unknown) (unknown) (no (unknown) (unknown) ADHD (-1998) (units (u nknown) date) unknown) (unknown) (no (unknown) (unknown) Abdominal (units (unkn own) date) location: unknown) unspecified location Qualified Code(s): R10.9 (unknown) (no (unknown) (unknown) Abdominal pain (units (unknown) date) unknown) (unknown) (no (unknown) (unknown) Abnormal Pap smear (units (unknown) date) of cervix unknown) (unknown) (no (unknown) (unknown) Abnormal chest (units (unknown) date) xray () unknown) (unknown) (no (unknown) (unknown) Accompanied by: (units (unknown) date) Son unknown) (unknown) (no (unknown) (unknown) Adenomyosis/Abdomi (units (unknown) date) nal pain: She plans unknown) a new IUD through gynecology. The patient (unknown) (no (unknown) (unknown) Age/Sex: 36 / F (units (unknown) date) Date of Service: unknown) (unknown) (no (unknown) (unknown) Alanine (units (unkno wn) date) Aminotransferase unknown) (ALT/SGPT) 25 IU/L (9-52) 08/08 (unknown) (no (unknown) (unknown) Albumin 4.5 g/dL (units (unknown) date) (3.5-5.0) 08/22/16 unknown) (unknown) (no (unknown) (unknown) Albumin/Globulin (units (unknown) date) Ratio 1.5 (1-2.8) unknown) 08/22/16 (unknown) (no (unknown) (unknown) Alkaline (units (unkno wn) date) Phosphatase 40 U/L unknown) (38-126) 08/22/16 (unknown) (no (unknown) (unknown) All systems (units (un known) date) reviewed + are unknown) unremarkable except as noted in HPI and below (unknown) (no (unknown) (unknown) Allergies (units (unkn own) date) unknown) (unknown) (no (unknown) (unknown) [place], [place] (units ( unknown) date) [id number] unknown) (unknown) (no (unknown) (unknown) Anesthesia (units (unk nown) date) unknown) (unknown) (no (unknown) (unknown) Anxiety (units (unkno wn) date) unknown) (unknown) (no (unknown) (unknown) Anxiety: The (units (u nknown) date) patient reports unknown) symptoms are well controlled on current therapy. (unknown) (no (unknown) (unknown) Aspartate Amino (units (unknown) date) Transf (AST/SGOT) unknown) 19 IU/L (14-36) 08/22/ (unknown) (no (unknown) (unknown) Assessment + Plan (units (unknown) date) unknown) (unknown) (no (unknown) (unknown) Assessment and (units (unknown) date) Plan: unknown) (unknown) (no (unknown) (unknown) Asthma (units (unkno wn) date) unknown) (unknown) (no (unknown) (unknown) Attending Dr: (units ( unknown) date) Rafael Mcgee MD unknown) (unknown) (no (unknown) (unknown) BID 01/03/22 (units (u nknown) date) [History Confirmed unknown) 06/07/22] (unknown) (no (unknown) (unknown) BMI 46.5 (units (unkno wn) date) unknown) (unknown) (no (unknown) (unknown) BP 146/75 H (units (un known) date) unknown) (unknown) (no (unknown) (unknown) BUN/Creatinine (units (unknown) date) Ratio 13.3 unknown) (5.8-27.8) 08/22/16 (unknown) (no (unknown) (unknown) Back pain (units (unkn own) date) laterality: unknown) bilateral Sciatica presence: with sciatica (unknown) (no (unknown) (unknown) Blood Pressure (units (unknown) date) Location Lt radial unknown) (unknown) (no (unknown) (unknown) Blood Urea (units (unk nown) date) Nitrogen 8.0 mg/dL unknown) (7-17) 08/22/16 (unknown) (no (unknown) (unknown) CARDIOVASCULAR: (units (unknown) date) Regular rate and unknown) rhythm without murmurs, gallops, or rubs. (unknown) (no (unknown) (unknown) Calcium Level 8.7 (units (unknown) date) mg/dL (8.4-10.2) unknown) 08/22/16 (unknown) (no (unknown) (unknown) Carbon Dioxide (units (unknown) date) Level 25.0 mmol/L unknown) (22-30) 08/22/16 (unknown) (no (unknown) (unknown) Carpal tunnel (units ( unknown) date) syndrome () unknown) (unknown) (no (unknown) (unknown) Cervical cancer (units (unknown) date) () unknown) (unknown) (no (unknown) (unknown) [facility] (units (unknown) date) h disease unknown) (unknown) (no (unknown) (unknown) Chief Complaint (units (unknown) date) unknown) (unknown) (no (unknown) (unknown) Chief Complaint: (units (unknown) date) Medical followup unknown) (unknown) (no (unknown) (unknown) Chlamydia () (units (unknown) date) unknown) (unknown) (no (unknown) (unknown) Chloride Level (units (unknown) date) 104.0 mmol/L unknown) (98-107) 08/22/16 (unknown) (no (unknown) (unknown) Chronic Low Back (units (unknown) date) Pain: The patient unknown) has a history of chronic back pain since 2004 (unknown) (no (unknown) (unknown) Chronic insomnia (units (unknown) date) unknown) (unknown) (no (unknown) (unknown) Chronic low back (units (unknown) date) pain () unknown) (unknown) (no (unknown) (unknown) Chronic pain (units (u nknown) date) management: The unknown) patient is seen in follow-up for chronic pain (unknown) (no (unknown) (unknown) Chronic, (units (unkno wn) date) continuous use of unknown) opioids (unknown) (no (unknown) (unknown) [facility] (units (unk nown) date) Results- Last: unknown) (unknown) (no (unknown) (unknown) Complete Blood (units (unknown) date) Count NO DIFF Today unknown) E78.2 - Mixed hyperlipidemia, G47.30 - Sleep (unknown) (no (unknown) (unknown) Comprehensive (units (u nknown) date) Metabolic Panel unknown) Today E78.2 - Mixed hyperlipidemia, G47.30 - Sleep (unknown) (no (unknown) (unknown) Confirmed (units (unkn own) date) 06/07/22] unknown) (unknown) (no (unknown) (unknown) Const (units (unkno wn) date) unknown) (unknown) (no (unknown) (unknown) Consume fewer (units ( unknown) date) calories (eat less) unknown) and burn more calories (move more) to achieve (unknown) (no (unknown) (unknown) Creatinine 0.60 (units (unknown) date) mg/dL (0.52-1.04) unknown) 08/22/16 (unknown) (no (unknown) (unknown) DERMATOLOGIC: No (units (unknown) date) rashes or skin unknown) lesions. (unknown) (no (unknown) (unknown) : 1985 (units (unknown) date) Acct:[id number] unknown) (unknown) (no (unknown) (unknown) Depression (units (unk nown) date) unknown) (unknown) (no (unknown) (unknown) Dept at (units (unkno wn) date) . unknown) (unknown) (no (unknown) (unknown) Details: (units (unkno wn) date) unknown) (unknown) (no (unknown) (unknown) Diverticular (units (u nknown) date) disease () unknown) (unknown) (no (unknown) (unknown) Documented By: (units (unknown) date) Rafael Mcgee MD unknown) 08/02/22 0543 (unknown) (no (unknown) (unknown) Draft (units (unkno wn) date) unknown) (unknown) (no (unknown) (unknown) ENT: Mucous (units (un known) date) membranes pink and unknown) moist. (unknown) (no (unknown) (unknown) EXTREMITIES: No (units (unknown) date) clubbing, cyanosis, unknown) or edema. (unknown) (no (unknown) (unknown) EYES: Pupils equal (units (unknown) date) round and reactive. unknown) Extraocular motions intact. No scleral (unknown) (no (unknown) (unknown) Exam Narrative (units (unknown) date) unknown) (unknown) (no (unknown) (unknown) Exam Narrative: (units (unknown) date) unknown) (unknown) (no (unknown) (unknown) Exam (units (unkno wn) date) unknown) (unknown) (no (unknown) (unknown) Family History (units (unknown) date) (Reviewed 08/02/22 unknown) @ 05:44 by Rafael Mcgee MD) (unknown) (no (unknown) (unknown) Father History of (units (unknown) date) heart disease unknown) (unknown) (no (unknown) (unknown) Fibromyalgia (units (u nknown) date) (-2016) unknown) (unknown) (no (unknown) (unknown) [facility]) (unknown) (no (unknown) (unknown) Followup in 6 (units ( unknown) date) months. unknown) (unknown) (no (unknown) (unknown) For knee pain, (units (unknown) date) practice quarter unknown) squats: Feet parallel, shoulder-width apart, (unknown) (no (unknown) (unknown) GASTROINTESTINAL: (units (unknown) date) Abdomen soft, unknown) non-tender, nondistended. (unknown) (no (unknown) (unknown) GENERAL: This is a (units (unknown) date) well-nourished, unknown) well-developed patient, in no apparent (unknown) (no (unknown) (unknown) Globulin 3.0 g/dL (units (unknown) date) (1.7-4.1) 08/22/16 unknown) (unknown) (no (unknown) (unknown) Glucose Level 104 (units (unknown) date) mg/dL (79-115) unknown) 08/22/16 (unknown) (no (unknown) (unknown) Gout (-2017) (units (u nknown) date) unknown) (unknown) (no (unknown) (unknown) H/O LEEP (units (unkno wn) date) unknown) (unknown) (no (unknown) (unknown) H/O laparoscopy (units (unknown) date) (-2009) unknown) (unknown) (no (unknown) (unknown) HPI (units (unkno wn) date) unknown) (unknown) (no (unknown) (unknown) Height 5 ft 6 in (units (unknown) date) unknown) (unknown) (no (unknown) (unknown) Hematocrit 42.0 % (units (unknown) date) (36-46) 08/22/16 unknown) (unknown) (no (unknown) (unknown) Hemoglobin 13.9 (units (unknown) date) G/DL (12-16) unknown) 08/22/16 (unknown) (no (unknown) (unknown) Herpes (-2019) (units (unknown) date) unknown) (unknown) (no (unknown) (unknown) History of (units (unk nown) date) unknown) (-08/08/04) (unknown) (no (unknown) (unknown) Human papilloma (units (unknown) date) virus (-2002) unknown) (unknown) (no (unknown) (unknown) Hyperlipidemia (units (unknown) date) unknown) (unknown) (no (unknown) (unknown) Hypertension (units (u nknown) date) unknown) (unknown) (no (unknown) (unknown) Intake Note: (units (u nknown) date) unknown) (unknown) (no (unknown) (unknown) Intake performed (units (unknown) date) by: Demi Madera unknown) (unknown) (no (unknown) (unknown) Intake (units (unkno wn) date) unknown) (unknown) (no (unknown) (unknown) Intake- Clincial (units (unknown) date) Staff unknown) (unknown) (no (unknown) (unknown) Internal Medicine (units (unknown) date) Office Visit unknown) (unknown) (no (unknown) (unknown) Irritable bowel (units (unknown) date) syndrome (-2008) unknown) (unknown) (no (unknown) (unknown) It was very nice (units (unknown) date) to meet with you unknown) today! (unknown) (no (unknown) (unknown) Lab Results (units (un known) date) unknown) (unknown) (no (unknown) (unknown) Labwork is ordered (units (unknown) date) today to evaluate unknown) your condition. Results will be posted to (unknown) (no (unknown) (unknown) Left ovarian cyst (units (unknown) date) () unknown) (unknown) (no (unknown) (unknown) Lipid Panel Today (units (unknown) date) E78.2 - Mixed unknown) hyperlipidemia, G47.30 - Sleep apnea, (unknown) (no (unknown) (unknown) Loc: [facility] (units (unkno wn) date) unknown) (unknown) (no (unknown) (unknown) [id number] (units (unk nown) date) unknown) (unknown) (no (unknown) (unknown) MUSCULOSKELETAL: (units (unknown) date) Right knee with unknown) FROM, no swelling, warmth, erythema or (unknown) (no (unknown) (unknown) Major depression:? (units (unknown) date) The patient reports unknown) good compliance with bupropion and (unknown) (no (unknown) (unknown) Mean Corpuscular (units (unknown) date) Hemoglobin 30.5 PG unknown) (26-34) 08/22/16 (unknown) (no (unknown) (unknown) Mean Corpuscular (units (unknown) date) Hemoglobin Concent unknown) 33.1 % (31-37) 08/08 (unknown) (no (unknown) (unknown) Mean Corpuscular (units (unknown) date) Volume 92.2 FL unknown) (80-100) 08/22/16 (unknown) (no (unknown) (unknown) Medical History (units (unknown) date) (Reviewed 08/02/22 unknown) @ 05:44 by Rafael Mcgee MD) (unknown) (no (unknown) (unknown) Medications (units (un known) date) unknown) (unknown) (no (unknown) (unknown) Mental health (units ( unknown) date) problem unknown) (unknown) (no (unknown) (unknown) Migraines (-2004) (units (unknown) date) unknown) (unknown) (no (unknown) (unknown) Mother Diabetes (units (unknown) date) mellitus unknown) (unknown) (no (unknown) (unknown) NECK: Trachea (units ( unknown) date) midline. No JVD, unknown) bruits or lymphadenopathy. Supple, nontender, no (unknown) (no (unknown) (unknown) NEUROLOGIC: Alert, (units (unknown) date) oriented, speech unknown) fluent, full upper and lower motor strength, (unknown) (no (unknown) (unknown) No Known Drug (units ( unknown) date) Allergies Allergy unknown) (Verified 08/02/22 08:12) (unknown) (no (unknown) (unknown) Orders (units (unkno wn) date) unknown) (unknown) (no (unknown) (unknown) Orders: (units (unkno wn) date) unknown) (unknown) (no (unknown) (unknown) Oxygen Delivery (units (unknown) date) Method room air unknown) (unknown) (no (unknown) (unknown) PFSH (units (unkno wn) date) unknown) (unknown) (no (unknown) (unknown) Painful menstrual (units (unknown) date) periods unknown) (unknown) (no (unknown) (unknown) Patient: (units (unkno wn) date) Cory Osborne unknown) MR#: (unknown) (no (unknown) (unknown) Plan (units (unkno wn) date) unknown) (unknown) (no (unknown) (unknown) Platelet Count 184 (units (unknown) date) X103/uL (150-400) unknown) 08/22/16 (unknown) (no (unknown) (unknown) Position Sitting (units (unknown) date) unknown) (unknown) (no (unknown) (unknown) Potassium Level (units (unknown) date) 4.0 mmol/L unknown) (3.5-5.1) 08/22/16 (unknown) (no (unknown) (unknown) Pulse 85 (units (unkno wn) date) unknown) (unknown) (no (unknown) (unknown) Pulse Oximetry (%) (units (unknown) date) 97 unknown) (unknown) (no (unknown) (unknown) Pulse Source (units (u nknown) date) Monitor unknown) (unknown) (no (unknown) (unknown) Qualifiers: (units (un known) date) unknown) (unknown) (no (unknown) (unknown) RESPIRATORY: Clear (units (unknown) date) to auscultation. unknown) (unknown) (no (unknown) (unknown) ROS (units (unkno wn) date) unknown) (unknown) (no (unknown) (unknown) Reason For Visit (units (unknown) date) unknown) (unknown) (no (unknown) (unknown) Red Blood Count (units (unknown) date) 4.55 X106/uL unknown) (4.0-5.2) 08/22/16 (unknown) (no (unknown) (unknown) Red Cell (units (unkno wn) date) Distribution Width unknown) 12.7 % (11.6-14.8) 08/22/16 (unknown) (no (unknown) (unknown) Referral Sleep (units (unknown) date) Medicine G47.30 - unknown) Sleep apnea, unspecified (unknown) (no (unknown) (unknown) Referrals (units (unkn own) date) unknown) (unknown) (no (unknown) (unknown) Respiration 16 (units (unknown) date) unknown) (unknown) (no (unknown) (unknown) Right knee pain: (units (unknown) date) The patient reports unknown) right knee pain the past couple of months. (unknown) (no (unknown) (unknown) Rule out (units (unkno wn) date) obstructive versus unknown) central sleep apnea. (unknown) (no (unknown) (unknown) Sciatica (units (unkno wn) date) laterality: unknown) sciatica of right side Qualified Code(s): M54.41 - Lumbago (unknown) (no (unknown) (unknown) Severe obesity (units (unknown) date) (BMI >= 40) unknown) (unknown) (no (unknown) (unknown) She meditates and (units (unknown) date) enjoys plants. unknown) (unknown) (no (unknown) (unknown) She states she had (units (unknown) date) bloodwork and xrays unknown) at the walk-in clinic in [place] and (unknown) (no (unknown) (unknown) Shortness of (units (u nknown) date) breath unknown) (unknown) (no (unknown) (unknown) Signed By: (units (unk nown) date) unknown) (unknown) (no (unknown) (unknown) Sleep apnea (units (un known) date) () unknown) (unknown) (no (unknown) (unknown) Sleep apnea type: (units (unknown) date) unspecified type unknown) Qualified Code(s): G47.30 - Sleep (unknown) (no (unknown) (unknown) Sleep (units (unkno wn) date) issues/Insomnia: unknown) The patient states symptoms are adequately controlled on (unknown) (no (unknown) (unknown) Smoking Status: (units (unknown) date) Former smoker unknown) (unknown) (no (unknown) (unknown) Social History (units (unknown) date) unknown) (unknown) (no (unknown) (unknown) Sodium Level 143 (units (unknown) date) mmol/L (137-145) unknown) 08/22/16 (unknown) (no (unknown) (unknown) Status post right (units (unknown) date) foot surgery unknown) () (unknown) (no (unknown) (unknown) Status: Acute (units ( unknown) date) unknown) (unknown) (no (unknown) (unknown) Suboxone. She is (units (unknown) date) followed by unknown) [facility] with (unknown) (no (unknown) (unknown) Surgical History (units (unknown) date) (Reviewed 08/02/22 unknown) @ 05:44 by Rafael Mcgee MD) (unknown) (no (unknown) (unknown) TSH w/ Reflex to (units (unknown) date) FT4 Today E78.2 - unknown) Mixed hyperlipidemia, G47.30 - Sleep apnea, (unknown) (no (unknown) (unknown) This note may have (units (unknown) date) been all or unknown) partially generated using voice recognition (unknown) (no (unknown) (unknown) Tobacco + (units (unkn own) date) Substance Use unknown) (unknown) (no (unknown) (unknown) Tobacco Status (units (unknown) date) unknown) (unknown) (no (unknown) (unknown) Total Bilirubin (units (unknown) date) 0.3 mg/dL (0.2-1.3) unknown) 08/22/16 (unknown) (no (unknown) (unknown) Total Protein 7.5 (units (unknown) date) g/dL (6.3-8.2) unknown) 08/22/16 (unknown) (no (unknown) (unknown) Unspecified (units (un known) date) abdominal pain unknown) (unknown) (no (unknown) (unknown) Visit Reasons: (units (unknown) date) sleeping issues, unknown) fatigue, referral (unknown) (no (unknown) (unknown) Vitals (units (unkno wn) date) unknown) (unknown) (no (unknown) (unknown) Weight 288 lb 2 oz (units (unknown) date) unknown) (unknown) (no (unknown) (unknown) White Blood Count (units (unknown) date) 13.9 X103/uL unknown) (4.5-11) H 08/22/16 (unknown) (no (unknown) (unknown) You are referred (units (unknown) date) for sleep medicine unknown) consultation for evaluation and management (unknown) (no (unknown) (unknown) You need to lose (units (unknown) date) weight for your unknown) general health. Regular physical activity and (unknown) (no (unknown) (unknown) Your blood (units (unk nown) date) pressure is unknown) elevated today. Monitor and let us know if consistently (unknown) (no (unknown) (unknown) Your medical (units (u nknown) date) condition appears unknown) stable at this point. Continue your current (unknown) (no (unknown) (unknown) [History Confirmed (units (unknown) date) 08/02/22] unknown) (unknown) (no (unknown) (unknown) [History Confirmed (units (unknown) date) 06/07/22] unknown) (unknown) (no (unknown) (unknown) adverse side (units (u nknown) date) effects. The pain unknown) medication is allowing for an increased overall (unknown) (no (unknown) (unknown) after difficult (units (unknown) date) labor delivering unknown) her son, treated with various medications which (unknown) (no (unknown) (unknown) apnea, unspecified (units (unknown) date) unknown) (unknown) (no (unknown) (unknown) apnea, (units (unkno wn) date) unspecified, R53.83 unknown) - Other fatigue (unknown) (no (unknown) (unknown) at any time. Her (units (unknown) date) mother told her in unknown) infancy she had trouble breathing. No (unknown) (no (unknown) (unknown) awaken to urinate, (units (unknown) date) jerking awake), unknown) fatigue and a referral to sleep center. (unknown) (no (unknown) (unknown) behaviors, signs (units (unknown) date) of addiction, or unknown) rapid development of tolerance.?She is (unknown) (no (unknown) (unknown) breath. She was (units (unknown) date) referred to unknown) gynecology. (unknown) (no (unknown) (unknown) buprenorphine 8 (units (unknown) date) mg-naloxone 2 mg unknown) sublingual film (Suboxone) 1 film sublingual (unknown) (no (unknown) (unknown) bupropion HCl 300 (units (unknown) date) mg 24 hr tablet, unknown) extended release 300 mg PO DAILY 01/03/22 (unknown) (no (unknown) (unknown) concentration. The (units (unknown) date) patient has good unknown) motivation. (unknown) (no (unknown) (unknown) condition is (units (u nknown) date) improved. unknown) (unknown) (no (unknown) (unknown) days weekly for (units (unknown) date) 30-60 minutes and unknown) limiting fats. Work on your 'energy equation'. 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 She has pain in the knee waking (unknown) (no (unknown) (unknown) distress. (units (unkn own) date) unknown) (unknown) (no (unknown) (unknown) duloxetine 30 mg (units (unknown) date) capsule,delayed unknown) release (Cymbalta) 30 mg PO BID 08/02/22 (unknown) (no (unknown) (unknown) duloxetine added (units (unknown) date) to her regimen unknown) since we last met, which she finds helpful. She (unknown) (no (unknown) (unknown) duloxetine, and (units (unknown) date) denies adverse side unknown) effects to the medication, and reports (unknown) (no (unknown) (unknown) effusion, with (units (unknown) date) mild foot eversion unknown) and right femur external rotation. (unknown) (no (unknown) (unknown) feeling mildly (units (unknown) date) depressed, unknown) irritable, cranky, fatigued, easily tearful, sleep (unknown) (no (unknown) (unknown) followed by (units (unknown) date) [facility]. unknown) (unknown) (no (unknown) (unknown) good biomechanics (units (unknown) date) with activity to unknown) prevent and manage leg pain. Let us know if (unknown) (no (unknown) (unknown) has intermittent (units (unknown) date) nausea, malaise and unknown) weakness. She has been able to work through (unknown) (no (unknown) (unknown) have occurred. If (units (unknown) date) there are any unknown) questions, please contact the Medical Records (unknown) (no (unknown) (unknown) healthy diet is (units (unknown) date) strongly unknown) recommended, including regular aerobic exercise most (unknown) (no (unknown) (unknown) history of (units (unknown) date) drug exposure, unknown) noting her father had a history of alcoholism. (unknown) (no (unknown) (unknown) icterus. No (units (un known) date) injection or unknown) drainage. (unknown) (no (unknown) (unknown) in sleep, awaken (units (unknown) date) to urinate, jerking unknown) awake), fatigue and requests a referral to (unknown) (no (unknown) (unknown) in the night with (units (unknown) date) turning over in unknown) bed, as well as during the day when walking. (unknown) (no (unknown) (unknown) kratom in 2018 in (units (unknown) date) increasing amounts unknown) and started treatment and was placed on (unknown) (no (unknown) (unknown) level of (units (unkno wn) date) function.? The unknown) patient is not exhibiting any aberrant drug related (unknown) (no (unknown) (unknown) management for (units (unknown) date) chronic back pain.? unknown) The patient is receiving adequate analgesia (unknown) (no (unknown) (unknown) may occur. (units (unk nown) date) Occasional unknown) wrong-word or 'sound-alike' substitutions may have (unknown) (no (unknown) (unknown) medications. (units (u nknown) date) unknown) (unknown) (no (unknown) (unknown) meningeal signs. (units (unknown) date) unknown) (unknown) (no (unknown) (unknown) no focal deficits (units (unknown) date) evident. unknown) (unknown) (no (unknown) (unknown) occurred due to (units (unknown) date) the inherent unknown) limitations of voice recognition software. Please (unknown) (no (unknown) (unknown) of diverticulitis. (units (unknown) date) She had an unknown) abdominal and pelvic ultrasound 12/28/2021 (unknown) (no (unknown) (unknown) of sleep apnea. (units (unknown) date) unknown) (unknown) (no (unknown) (unknown) on the current (units (unknown) date) medication. There unknown) has been no significant medication related (unknown) (no (unknown) (unknown) over 140/90. (units (u nknown) date) unknown) (unknown) (no (unknown) (unknown) oxycodone 5 mg (units (unknown) date) tablet 5 mg PO ONCE unknown) pain #1 tab 07/31/22 [Rx] (unknown) (no (unknown) (unknown) oxycodone 5 mg (units (unknown) date) tablet 5 mg PO Q12H unknown) PRN pain, severe #5 tabs 06/07/22 [Rx (unknown) (no (unknown) (unknown) read the note (units ( unknown) date) carefully and unknown) recognize, using context, where these substitutions (unknown) (no (unknown) (unknown) records not (units (un known) date) available at this unknown) time. She reports on 12/14/2021 she was seen for (unknown) (no (unknown) (unknown) reporting uterine (units (unknown) date) fibroids and unknown) ovarian cysts according to the patient, with (unknown) (no (unknown) (unknown) reports 5-6 years (units (unknown) date) of supra-umbilical unknown) to epigastric abdominal pain with a history (unknown) (no (unknown) (unknown) reports chronic (units (unknown) date) pain with a dull unknown) ache and located in the lower back with right (unknown) (no (unknown) (unknown) scan was (units (unkno wn) date) unremarkable, and unknown) has been treated for diverticulitis in the past. She (unknown) (no (unknown) (unknown) she weaned off as (units (unknown) date) they didn't seem unknown) particularly effective. She started using (unknown) (no (unknown) (unknown) sided sciatica. (units (unknown) date) Aggravating factors unknown) include rising from sitting, prolonged (unknown) (no (unknown) (unknown) similar more severe (units (unknown) date) symptoms with unknown) diarrhea at [facility] ER with a low potassium and CT (unknown) (no (unknown) (unknown) sleep center. She (units (unknown) date) states she is very unknown) tired during the day and could fall asleep (unknown) (no (unknown) (unknown) software. 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 (units (unknown) date) Associated symptoms unknown) include difficulty walking. Overall (unknown) (no (unknown) (unknown) the patient (units (un known) date) portal. Let us know unknown) if you have any questions or concerns. (unknown) (no (unknown) (unknown) this. No vomiting, (units (unknown) date) bleeding, change in unknown) bowel habits, chest pain, shortness of (unknown) (no (unknown) (unknown) trazodone 50 mg (units (unknown) date) tablet 50 mg PO unknown) BEDTIME PRN sleep 01/03/22 [History Confirmed (unknown) (no (unknown) (unknown) trazodone uses 2-4 (units (unknown) date) times weekly. She unknown) reports sleeping issues (snoring, talking (unknown) (no (unknown) (unknown) troubles, (units (unkn own) date) anhedonia, social unknown) withdrawal, or trouble with memory, focus, or (unknown) (no (unknown) (unknown) unspecified, (units (u nknown) date) R53.83 - Other unknown) fatigue (unknown) (no (unknown) (unknown) with kneecaps over (units (unknown) date) big toes. Perform unknown) 15-20 repetitions 1-2 times daily. Maintain (unknown) (no (unknown) (unknown) with sciatica, (units (unknown) date) right side; G89.29 unknown) - Other chronic pain (unknown) (no (unknown) (unknown) you have any (units (u nknown) date) problems. unknown) (unknown) (no (unknown) (unknown) your weight loss (units (unknown) date) goals. unknown) Result panel 42 (unknown) (no (unknown) (unknown) (no value) (units (unk nown) date) unknown) (unknown) (no (unknown) (unknown) (1) Sleep apnea: (units (unknown) date) unknown) (unknown) (no (unknown) (unknown) (10) Severe (units (un known) date) obesity (BMI >= unknown) 40): (unknown) (no (unknown) (unknown) (2) Other fatigue: (units (unknown) date) unknown) (unknown) (no (unknown) (unknown) (3) Chronic (units (un known) date) insomnia: unknown) (unknown) (no (unknown) (unknown) (4) Abdominal (units ( unknown) date) pain: unknown) (unknown) (no (unknown) (unknown) (5) Fibroids: (units ( unknown) date) unknown) (unknown) (no (unknown) (unknown) (6) Left ovarian (units (unknown) date) cyst: unknown) (unknown) (no (unknown) (unknown) (7) Chronic low (units (unknown) date) back pain: unknown) (unknown) (no (unknown) (unknown) (8) Chronic, (units (u nknown) date) continuous use of unknown) opioids: (unknown) (no (unknown) (unknown) (9) Right knee (units (unknown) date) pain: unknown) (unknown) (no (unknown) (unknown) 08/02/22 0901 (units ( unknown) date) unknown) (unknown) (no (unknown) (unknown) 08/02/22 (units (unkno wn) date) unknown) (unknown) (no (unknown) (unknown) 08:15 (units (unkno wn) date) unknown) (unknown) (no (unknown) (unknown) 06/07/22] (units (unkn own) date) unknown) (unknown) (no (unknown) (unknown) 17 (units (unkno wn) date) unknown) (unknown) (no (unknown) (unknown) 36 yo female (units (u nknown) date) presents today c/o unknown) sleeping issues (snoring, talking in sleep, (unknown) (no (unknown) (unknown) 11/21 (units (unkno wn) date) unknown) (unknown) (no (unknown) (unknown) ADHD (-1998) (units (u nknown) date) unknown) (unknown) (no (unknown) (unknown) Abdominal (units (unkn own) date) location: unknown) unspecified location Qualified Code(s): R10.9 (unknown) (no (unknown) (unknown) Abdominal pain (units (unknown) date) unknown) (unknown) (no (unknown) (unknown) Abnormal Pap smear (units (unknown) date) of cervix unknown) (unknown) (no (unknown) (unknown) Abnormal chest (units (unknown) date) xray () unknown) (unknown) (no (unknown) (unknown) Accompanied by: (units (unknown) date) Son unknown) (unknown) (no (unknown) (unknown) Adenomyosis/Abdomi (units (unknown) date) nal pain: She plans unknown) a new IUD through gynecology. The patient (unknown) (no (unknown) (unknown) Adequately (units (unk nown) date) controlled. unknown) Continue current medication per Dr. Caruso. (unknown) (no (unknown) (unknown) Adequately (units (unk nown) date) controlled. unknown) Continue current medication. (unknown) (no (unknown) (unknown) Age/Sex: 36 / F (units (unknown) date) Date of Service: unknown) (unknown) (no (unknown) (unknown) Alanine (units (unkno wn) date) Aminotransferase unknown) (ALT/SGPT) 25 IU/L (9-52) 08/08 (unknown) (no (unknown) (unknown) Albumin 4.5 g/dL (units (unknown) date) (3.5-5.0) 08/22/16 unknown) (unknown) (no (unknown) (unknown) Albumin/Globulin (units (unknown) date) Ratio 1.5 (1-2.8) unknown) 08/22/16 (unknown) (no (unknown) (unknown) Alkaline (units (unkno wn) date) Phosphatase 40 U/L unknown) (38-126) 08/22/16 (unknown) (no (unknown) (unknown) All systems (units (un known) date) reviewed + are unknown) unremarkable except as noted in HPI and below (unknown) (no (unknown) (unknown) Allergies (units (unkn own) date) unknown) (unknown) (no (unknown) (unknown) [place], [place] (units ( unknown) date) [id number] unknown) (unknown) (no (unknown) (unknown) Anesthesia (units (unk nown) date) unknown) (unknown) (no (unknown) (unknown) Anxiety (units (unkno wn) date) unknown) (unknown) (no (unknown) (unknown) Anxiety: The (units (u nknown) date) patient reports unknown) symptoms are well controlled on current therapy. (unknown) (no (unknown) (unknown) Aspartate Amino (units (unknown) date) Transf (AST/SGOT) unknown) 19 IU/L (14-36) 08/22/ (unknown) (no (unknown) (unknown) Assessment + Plan (units (unknown) date) unknown) (unknown) (no (unknown) (unknown) Assessment and (units (unknown) date) Plan: unknown) (unknown) (no (unknown) (unknown) Asthma (units (unkno wn) date) unknown) (unknown) (no (unknown) (unknown) Attending Dr: (units ( unknown) date) Rafael Mcgee MD unknown) (unknown) (no (unknown) (unknown) BID 01/03/22 (units (u nknown) date) [History Confirmed unknown) 06/07/22] (unknown) (no (unknown) (unknown) BMI 46.5 (units (unkno wn) date) unknown) (unknown) (no (unknown) (unknown) BP 146/75 H (units (un known) date) unknown) (unknown) (no (unknown) (unknown) BUN/Creatinine (units (unknown) date) Ratio 13.3 unknown) (5.8-27.8) 08/22/16 (unknown) (no (unknown) (unknown) Back pain (units (unkn own) date) laterality: unknown) bilateral Sciatica presence: with sciatica (unknown) (no (unknown) (unknown) Blood Pressure (units (unknown) date) Location Lt radial unknown) (unknown) (no (unknown) (unknown) Blood Urea (units (unk nown) date) Nitrogen 8.0 mg/dL unknown) (-) 08/22/16 (unknown) (no (unknown) (unknown) CARDIOVASCULAR: (units (unknown) date) Regular rate and unknown) rhythm without murmurs, gallops, or rubs. (unknown) (no (unknown) (unknown) Calcium Level 8.7 (units (unknown) date) mg/dL (8.4-10.2) unknown) 08/22/16 (unknown) (no (unknown) (unknown) Carbon Dioxide (units (unknown) date) Level 25.0 mmol/L unknown) (-) 08/22/16 (unknown) (no (unknown) (unknown) Care per FIELD SERVICE COORDINATOR at (units (unknown) date) this point. unknown) (unknown) (no (unknown) (unknown) Care reviewed. (units (unknown) date) unknown) (unknown) (no (unknown) (unknown) Carpal tunnel (units ( unknown) date) syndrome () unknown) (unknown) (no (unknown) (unknown) Cervical cancer (units (unknown) date) (-2002) unknown) (unknown) (no (unknown) (unknown) [id number]-[id number]-Thag (units (unknown) date) h disease unknown) (unknown) (no (unknown) (unknown) Chief Complaint (units (unknown) date) unknown) (unknown) (no (unknown) (unknown) Chief Complaint: (units (unknown) date) Medical followup unknown) (unknown) (no (unknown) (unknown) Chlamydia (-2014) (units (unknown) date) unknown) (unknown) (no (unknown) (unknown) Chloride Level (units (unknown) date) 104.0 mmol/L unknown) (98-107) 08/22/16 (unknown) (no (unknown) (unknown) Chronic Low Back (units (unknown) date) Pain: The patient unknown) has a history of chronic back pain since 2004 (unknown) (no (unknown) (unknown) Chronic insomnia (units (unknown) date) unknown) (unknown) (no (unknown) (unknown) Chronic low back (units (unknown) date) pain () unknown) (unknown) (no (unknown) (unknown) Chronic pain (units (u nknown) date) management: The unknown) patient is seen in follow-up for chronic pain (unknown) (no (unknown) (unknown) Chronic, (units (unkno wn) date) continuous use of unknown) opioids (unknown) (no (unknown) (unknown) Chronicity: (units (un known) date) chronic Qualified unknown) Code(s): M25.561 - Pain in right knee; (unknown) (no (unknown) (unknown) Clinically stable. (units (unknown) date) Continue current unknown) plan. (unknown) (no (unknown) (unknown) Common Lab (units (unk nown) date) Results- Last: unknown) (unknown) (no (unknown) (unknown) Complete Blood (units (unknown) date) Count NO DIFF Today unknown) E78.2 - Mixed hyperlipidemia, G47.30 - Sleep (unknown) (no (unknown) (unknown) Comprehensive (units (u nknown) date) Metabolic Panel unknown) Today E78.2 - Mixed hyperlipidemia, G47.30 - Sleep (unknown) (no (unknown) (unknown) Confirmed (units (unkn own) date) 06/07/22] unknown) (unknown) (no (unknown) (unknown) Const (units (unkno wn) date) unknown) (unknown) (no (unknown) (unknown) Consume fewer (units ( unknown) date) calories (eat less) unknown) and burn more calories (move more) to achieve (unknown) (no (unknown) (unknown) Creatinine 0.60 (units (unknown) date) mg/dL (0.52-1.04) unknown) 08/22/16 (unknown) (no (unknown) (unknown) D25.9 - Leiomyoma (units (unknown) date) of uterus, unknown) unspecified (unknown) (no (unknown) (unknown) DERMATOLOGIC: No (units (unknown) date) rashes or skin unknown) lesions. (unknown) (no (unknown) (unknown) : 1985 (units (unknown) date) Acct:[id number] unknown) (unknown) (no (unknown) (unknown) Depression (units (unk nown) date) unknown) (unknown) (no (unknown) (unknown) Dept at (units (unkno wn) date) . unknown) (unknown) (no (unknown) (unknown) Details: (units (unkno wn) date) unknown) (unknown) (no (unknown) (unknown) Diverticular (units (u nknown) date) disease () unknown) (unknown) (no (unknown) (unknown) Documented By: (units (unknown) date) Rafael Mcgee MD unknown) 08/02/22 0543 (unknown) (no (unknown) (unknown) ENT: Mucous (units (un known) date) membranes pink and unknown) moist. (unknown) (no (unknown) (unknown) EXTREMITIES: No (units (unknown) date) clubbing, cyanosis, unknown) or edema. (unknown) (no (unknown) (unknown) EYES: Pupils equal (units (unknown) date) round and reactive. unknown) Extraocular motions intact. No scleral (unknown) (no (unknown) (unknown) Exam Narrative (units (unknown) date) unknown) (unknown) (no (unknown) (unknown) Exam Narrative: (units (unknown) date) unknown) (unknown) (no (unknown) (unknown) Exam (units (unkno wn) date) unknown) (unknown) (no (unknown) (unknown) Family History (units (unknown) date) (Reviewed 08/02/22 unknown) @ 05:44 by Rafael Mcgee MD) (unknown) (no (unknown) (unknown) Father History of (units (unknown) date) heart disease unknown) (unknown) (no (unknown) (unknown) Fibromyalgia (units (u nknown) date) (-2016) unknown) (unknown) (no (unknown) (unknown) [facility]) (unknown) (no (unknown) (unknown) Followup in 6 (units ( unknown) date) months. unknown) (unknown) (no (unknown) (unknown) For knee pain, (units (unknown) date) practice quarter unknown) squats: Feet parallel, shoulder-width apart, (unknown) (no (unknown) (unknown) G89.29 - Other (units (unknown) date) chronic pain unknown) (unknown) (no (unknown) (unknown) GASTROINTESTINAL: (units (unknown) date) Abdomen soft, unknown) non-tender, nondistended. (unknown) (no (unknown) (unknown) GENERAL: This is a (units (unknown) date) well-nourished, unknown) well-developed patient, in no apparent (unknown) (no (unknown) (unknown) Globulin 3.0 g/dL (units (unknown) date) (1.7-4.1) 08/22/16 unknown) (unknown) (no (unknown) (unknown) Glucose Level 104 (units (unknown) date) mg/dL (79-115) unknown) 08/22/16 (unknown) (no (unknown) (unknown) Gout (-2017) (units (u nknown) date) unknown) (unknown) (no (unknown) (unknown) H/O LEEP (units (unkno wn) date) unknown) (unknown) (no (unknown) (unknown) H/O laparoscopy (units (unknown) date) () unknown) (unknown) (no (unknown) (unknown) HPI (units (unkno wn) date) unknown) (unknown) (no (unknown) (unknown) Height 5 ft 6 in (units (unknown) date) unknown) (unknown) (no (unknown) (unknown) Hematocrit 42.0 % (units (unknown) date) (36-46) 08/22/16 unknown) (unknown) (no (unknown) (unknown) Hemoglobin 13.9 (units (unknown) date) G/DL (12-16) unknown) 08/22/16 (unknown) (no (unknown) (unknown) Herpes (-2018) (units (unknown) date) unknown) (unknown) (no (unknown) (unknown) History of (units (unk nown) date) unknown) (-08/08/04) (unknown) (no (unknown) (unknown) Human papilloma (units (unknown) date) virus (-2002) unknown) (unknown) (no (unknown) (unknown) Hyperlipidemia (units (unknown) date) unknown) (unknown) (no (unknown) (unknown) Hypertension (units (u nknown) date) unknown) (unknown) (no (unknown) (unknown) Intake Note: (units (u nknown) date) unknown) (unknown) (no (unknown) (unknown) Intake performed (units (unknown) date) by: Demi Madera unknown) (unknown) (no (unknown) (unknown) Intake (units (unkno wn) date) unknown) (unknown) (no (unknown) (unknown) Intake- Clincial (units (unknown) date) Staff unknown) (unknown) (no (unknown) (unknown) Internal Medicine (units (unknown) date) Office Visit unknown) (unknown) (no (unknown) (unknown) Irritable bowel (units (unknown) date) syndrome () unknown) (unknown) (no (unknown) (unknown) It was very nice (units (unknown) date) to meet with you unknown) today! (unknown) (no (unknown) (unknown) Lab Results (units (un known) date) unknown) (unknown) (no (unknown) (unknown) Labwork is ordered (units (unknown) date) today to evaluate unknown) your condition. Results will be posted to (unknown) (no (unknown) (unknown) Left ovarian cyst (units (unknown) date) () unknown) (unknown) (no (unknown) (unknown) Likely (units (unkno wn) date) biomechanical with unknown) chronic strain due to mal-alignment issues with gait. (unknown) (no (unknown) (unknown) Lipid Panel Today (units (unknown) date) E78.2 - Mixed unknown) hyperlipidemia, G47.30 - Sleep apnea, (unknown) (no (unknown) (unknown) Loc: [facility] (units (unkno wn) date) unknown) (unknown) (no (unknown) (unknown) [id number] (units (unk nown) date) unknown) (unknown) (no (unknown) (unknown) MUSCULOSKELETAL: (units (unknown) date) Right knee with unknown) FROM, no swelling, warmth, erythema or (unknown) (no (unknown) (unknown) Major depression:? (units (unknown) date) The patient reports unknown) good compliance with bupropion and (unknown) (no (unknown) (unknown) Mean Corpuscular (units (unknown) date) Hemoglobin 30.5 PG unknown) (26-34) 08/22/16 (unknown) (no (unknown) (unknown) Mean Corpuscular (units (unknown) date) Hemoglobin Concent unknown) 33.1 % (31-37) 08/08 (unknown) (no (unknown) (unknown) Mean Corpuscular (units (unknown) date) Volume 92.2 FL unknown) (80-100) 08/22/16 (unknown) (no (unknown) (unknown) Medical History (units (unknown) date) (Reviewed 08/02/22 unknown) @ 05:44 by Rafael Mcgee MD) (unknown) (no (unknown) (unknown) Medications (units (un known) date) unknown) (unknown) (no (unknown) (unknown) Mental health (units ( unknown) date) problem unknown) (unknown) (no (unknown) (unknown) Migraines (-2003) (units (unknown) date) unknown) (unknown) (no (unknown) (unknown) Mother Diabetes (units (unknown) date) mellitus unknown) (unknown) (no (unknown) (unknown) NECK: Trachea (units ( unknown) date) midline. No JVD, unknown) bruits or lymphadenopathy. Supple, nontender, no (unknown) (no (unknown) (unknown) NEUROLOGIC: Alert, (units (unknown) date) oriented, speech unknown) fluent, full upper and lower motor strength, (unknown) (no (unknown) (unknown) No Known Drug (units ( unknown) date) Allergies Allergy unknown) (Verified 08/02/22 08:12) (unknown) (no (unknown) (unknown) Orders (units (unkno wn) date) unknown) (unknown) (no (unknown) (unknown) Orders: (units (unkno wn) date) unknown) (unknown) (no (unknown) (unknown) Oxygen Delivery (units (unknown) date) Method room air unknown) (unknown) (no (unknown) (unknown) PFSH (units (unkno wn) date) unknown) (unknown) (no (unknown) (unknown) Painful menstrual (units (unknown) date) periods unknown) (unknown) (no (unknown) (unknown) Patient: (units (unkno wn) date) Cory Osborne unknown) MR#: (unknown) (no (unknown) (unknown) Plan (units (unkno wn) date) unknown) (unknown) (no (unknown) (unknown) Platelet Count 184 (units (unknown) date) X103/uL (150-400) unknown) 08/22/16 (unknown) (no (unknown) (unknown) Position Sitting (units (unknown) date) unknown) (unknown) (no (unknown) (unknown) Potassium Level (units (unknown) date) 4.0 mmol/L unknown) (3.5-5.1) 08/22/16 (unknown) (no (unknown) (unknown) Pulse 85 (units (unkno wn) date) unknown) (unknown) (no (unknown) (unknown) Pulse Oximetry (%) (units (unknown) date) 97 unknown) (unknown) (no (unknown) (unknown) Pulse Source (units (u nknown) date) Monitor unknown) (unknown) (no (unknown) (unknown) Qualifiers: (units (un known) date) unknown) (unknown) (no (unknown) (unknown) RESPIRATORY: Clear (units (unknown) date) to auscultation. unknown) (unknown) (no (unknown) (unknown) ROS (units (unkno wn) date) unknown) (unknown) (no (unknown) (unknown) Reason For Visit (units (unknown) date) unknown) (unknown) (no (unknown) (unknown) Red Blood Count (units (unknown) date) 4.55 X106/uL unknown) (4.0-5.2) 08/22/16 (unknown) (no (unknown) (unknown) Red Cell (units (unkno wn) date) Distribution Width unknown) 12.7 % (11.6-14.8) 08/22/16 (unknown) (no (unknown) (unknown) Referral Sleep (units (unknown) date) Medicine G47.30 - unknown) Sleep apnea, unspecified (unknown) (no (unknown) (unknown) Referrals (units (unkn own) date) unknown) (unknown) (no (unknown) (unknown) Respiration 16 (units (unknown) date) unknown) (unknown) (no (unknown) (unknown) Right knee pain: (units (unknown) date) The patient reports unknown) right knee pain the past couple of months. (unknown) (no (unknown) (unknown) Rule out metabolic (units (unknown) date) etiology. Evaluate unknown) as outlined below. (unknown) (no (unknown) (unknown) Rule out (units (unkno wn) date) obstructive versus unknown) central sleep apnea. (unknown) (no (unknown) (unknown) Sciatica (units (unkno wn) date) laterality: unknown) sciatica of right side Qualified Code(s): M54.41 - Lumbago (unknown) (no (unknown) (unknown) Severe obesity (units (unknown) date) (BMI >= 40) unknown) (unknown) (no (unknown) (unknown) She meditates and (units (unknown) date) enjoys plants. unknown) (unknown) (no (unknown) (unknown) She states she had (units (unknown) date) bloodwork and xrays unknown) at the walk-in clinic in [place] and (unknown) (no (unknown) (unknown) Shortness of (units (u nknown) date) breath unknown) (unknown) (no (unknown) (unknown) Signed By: (units (unk nown) date) <Electronically unknown) signed by Rafael Mcgee MD> (unknown) (no (unknown) (unknown) Signed (units (unkno wn) date) unknown) (unknown) (no (unknown) (unknown) Sleep apnea (units (un known) date) () unknown) (unknown) (no (unknown) (unknown) Sleep apnea type: (units (unknown) date) unspecified type unknown) Qualified Code(s): G47.30 - Sleep (unknown) (no (unknown) (unknown) Sleep (units (unkno wn) date) issues/Insomnia: unknown) The patient states symptoms are adequately controlled on (unknown) (no (unknown) (unknown) Smoking Status: (units (unknown) date) Former smoker unknown) (unknown) (no (unknown) (unknown) Social History (units (unknown) date) unknown) (unknown) (no (unknown) (unknown) Sodium Level 143 (units (unknown) date) mmol/L (137-145) unknown) 08/22/16 (unknown) (no (unknown) (unknown) Status post right (units (unknown) date) foot surgery unknown) (-2000) (unknown) (no (unknown) (unknown) Status: Acute (units ( unknown) date) unknown) (unknown) (no (unknown) (unknown) Suboxone. She is (units (unknown) date) followed by unknown) [facility] with (unknown) (no (unknown) (unknown) Surgical History (units (unknown) date) (Reviewed 08/02/22 unknown) @ 05:44 by Rafael Mcgee MD) (unknown) (no (unknown) (unknown) TSH w/ Reflex to (units (unknown) date) FT4 Today E78.2 - unknown) Mixed hyperlipidemia, G47.30 - Sleep apnea, (unknown) (no (unknown) (unknown) This note may have (units (unknown) date) been all or unknown) partially generated using voice recognition (unknown) (no (unknown) (unknown) Tobacco + (units (unkn own) date) Substance Use unknown) (unknown) (no (unknown) (unknown) Tobacco Status (units (unknown) date) unknown) (unknown) (no (unknown) (unknown) Total Bilirubin (units (unknown) date) 0.3 mg/dL (0.2-1.3) unknown) 08/22/16 (unknown) (no (unknown) (unknown) Total Protein 7.5 (units (unknown) date) g/dL (6.3-8.2) unknown) 08/22/16 (unknown) (no (unknown) (unknown) Unspecified (units (un known) date) abdominal pain unknown) (unknown) (no (unknown) (unknown) Uterine leiomyoma (units (unknown) date) location: unknown) unspecified location Qualified Code(s): (unknown) (no (unknown) (unknown) Visit Reasons: (units (unknown) date) sleeping issues, unknown) fatigue, referral (unknown) (no (unknown) (unknown) Vitals (units (unkno wn) date) unknown) (unknown) (no (unknown) (unknown) Weight 288 lb 2 oz (units (unknown) date) unknown) (unknown) (no (unknown) (unknown) Weight loss (units (un known) date) education provided. unknown) (unknown) (no (unknown) (unknown) White Blood Count (units (unknown) date) 13.9 X103/uL unknown) (4.5-11) H 08/22/16 (unknown) (no (unknown) (unknown) You are referred (units (unknown) date) for sleep medicine unknown) consultation for evaluation and management (unknown) (no (unknown) (unknown) You need to lose (units (unknown) date) weight for your unknown) general health. Regular physical activity and (unknown) (no (unknown) (unknown) Your blood (units (unk nown) date) pressure is unknown) elevated today. Monitor and let us know if consistently (unknown) (no (unknown) (unknown) Your medical (units (u nknown) date) condition appears unknown) stable at this point. Continue your current (unknown) (no (unknown) (unknown) [History Confirmed (units (unknown) date) 08/02/22] unknown) (unknown) (no (unknown) (unknown) [History Confirmed (units (unknown) date) 06/07/22] unknown) (unknown) (no (unknown) (unknown) adverse side (units (u nknown) date) effects. The pain unknown) medication is allowing for an increased overall (unknown) (no (unknown) (unknown) after difficult (units (unknown) date) labor delivering unknown) her son, treated with various medications which (unknown) (no (unknown) (unknown) apnea, unspecified (units (unknown) date) unknown) (unknown) (no (unknown) (unknown) apnea, (units (unkno wn) date) unspecified, R53.83 unknown) - Other fatigue (unknown) (no (unknown) (unknown) at any time. Her (units (unknown) date) mother told her in unknown) infancy she had trouble breathing. No (unknown) (no (unknown) (unknown) awaken to urinate, (units (unknown) date) jerking awake), unknown) fatigue and a referral to sleep center. (unknown) (no (unknown) (unknown) ay occur. (units (unkn own) date) Occasional unknown) wrong-word or 'sound-alike' substitutions may have (unknown) (no (unknown) (unknown) behaviors, signs (units (unknown) date) of addiction, or unknown) rapid development of tolerance.?She is (unknown) (no (unknown) (unknown) breath. She was (units (unknown) date) referred to unknown) gynecology. (unknown) (no (unknown) (unknown) buprenorphine 8 (units (unknown) date) mg-naloxone 2 mg unknown) sublingual film (Suboxone) 1 film sublingual (unknown) (no (unknown) (unknown) bupropion HCl 300 (units (unknown) date) mg 24 hr tablet, unknown) extended release 300 mg PO DAILY 01/03/22 (unknown) (no (unknown) (unknown) concentration. The (units (unknown) date) patient has good unknown) motivation. (unknown) (no (unknown) (unknown) condition is (units (u nknown) date) improved. unknown) (unknown) (no (unknown) (unknown) days weekly for (units (unknown) date) 30-60 minutes and unknown) limiting fats. Work on your 'energy equation'. 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 She has pain in the knee waking (unknown) (no (unknown) (unknown) distress. (units (unkn own) date) unknown) (unknown) (no (unknown) (unknown) duloxetine 30 mg (units (unknown) date) capsule,delayed unknown) release (Cymbalta) 30 mg PO BID 08/02/22 (unknown) (no (unknown) (unknown) duloxetine added (units (unknown) date) to her regimen unknown) since we last met, which she finds helpful. She (unknown) (no (unknown) (unknown) duloxetine, and (units (unknown) date) denies adverse side unknown) effects to the medication, and reports (unknown) (no (unknown) (unknown) effusion, with (units (unknown) date) mild foot eversion unknown) and right femur external rotation. (unknown) (no (unknown) (unknown) feeling mildly (units (unknown) date) depressed, unknown) irritable, cranky, fatigued, easily tearful, sleep (unknown) (no (unknown) (unknown) followed by (units (unknown) date) [facility]. unknown) (unknown) (no (unknown) (unknown) good biomechanics (units (unknown) date) with activity to unknown) prevent and manage leg pain. Let us know if (unknown) (no (unknown) (unknown) has intermittent (units (unknown) date) nausea, malaise and unknown) weakness. She has been able to work through (unknown) (no (unknown) (unknown) have occurred. If (units (unknown) date) there are any unknown) questions, please contact the Medical Records (unknown) (no (unknown) (unknown) healthy diet is (units (unknown) date) strongly unknown) recommended, including regular aerobic exercise most (unknown) (no (unknown) (unknown) history of (units (unknown) date) drug exposure, unknown) noting her father had a history of alcoholism. (unknown) (no (unknown) (unknown) icterus. No (units (un known) date) injection or unknown) drainage. (unknown) (no (unknown) (unknown) in sleep, awaken (units (unknown) date) to urinate, jerking unknown) awake), fatigue and requests a referral to (unknown) (no (unknown) (unknown) in the night with (units (unknown) date) turning over in unknown) bed, as well as during the day when walking. (unknown) (no (unknown) (unknown) kratom in 2018 in (units (unknown) date) increasing amounts unknown) and started treatment and was placed on (unknown) (no (unknown) (unknown) level of (units (unkno wn) date) function.? The unknown) patient is not exhibiting any aberrant drug related (unknown) (no (unknown) (unknown) management for (units (unknown) date) chronic back pain.? unknown) The patient is receiving adequate analgesia (unknown) (no (unknown) (unknown) medications. (units (u nknown) date) unknown) (unknown) (no (unknown) (unknown) meningeal signs. (units (unknown) date) unknown) (unknown) (no (unknown) (unknown) no focal deficits (units (unknown) date) evident. unknown) (unknown) (no (unknown) (unknown) occurred due to (units (unknown) date) the inherent unknown) limitations of voice recognition software. Please (unknown) (no (unknown) (unknown) of diverticulitis. (units (unknown) date) She had an unknown) abdominal and pelvic ultrasound 12/28/2021 (unknown) (no (unknown) (unknown) of sleep apnea. (units (unknown) date) unknown) (unknown) (no (unknown) (unknown) on the current (units (unknown) date) medication. There unknown) has been no significant medication related (unknown) (no (unknown) (unknown) over 140/90. (units (u nknown) date) unknown) (unknown) (no (unknown) (unknown) oxycodone 5 mg (units (unknown) date) tablet 5 mg PO ONCE unknown) pain #1 tab 07/31/22 [Rx] (unknown) (no (unknown) (unknown) oxycodone 5 mg (units (unknown) date) tablet 5 mg PO Q12H unknown) PRN pain, severe #5 tabs 06/07/22 [Rx (unknown) (no (unknown) (unknown) read the note (units ( unknown) date) carefully and unknown) recognize, using context, where these substitutions (unknown) (no (unknown) (unknown) records not (units (un known) date) available at this unknown) time. She reports on 12/14/2021 she was seen for (unknown) (no (unknown) (unknown) reporting uterine (units (unknown) date) fibroids and unknown) ovarian cysts according to the patient, with (unknown) (no (unknown) (unknown) reports 5-6 years (units (unknown) date) of supra-umbilical unknown) to epigastric abdominal pain with a history (unknown) (no (unknown) (unknown) reports chronic (units (unknown) date) pain with a dull unknown) ache and located in the lower back with right (unknown) (no (unknown) (unknown) scan was (units (unkno wn) date) unremarkable, and unknown) has been treated for diverticulitis in the past. She (unknown) (no (unknown) (unknown) she weaned off as (units (unknown) date) they didn't seem unknown) particularly effective. She started using (unknown) (no (unknown) (unknown) sided sciatica. (units (unknown) date) Aggravating factors unknown) include rising from sitting, prolonged (unknown) (no (unknown) (unknown) similar more severe (units (unknown) date) symptoms with unknown) diarrhea at [facility] ER with a low potassium and CT (unknown) (no (unknown) (unknown) sleep center. She (units (unknown) date) states she is very unknown) tired during the day and could fall asleep (unknown) (no (unknown) (unknown) software. 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 (units (unknown) date) Associated symptoms unknown) include difficulty walking. Overall (unknown) (no (unknown) (unknown) the patient (units (un known) date) portal. Let us know unknown) if you have any questions or concerns. (unknown) (no (unknown) (unknown) this. No vomiting, (units (unknown) date) bleeding, change in unknown) bowel habits, chest pain, shortness of (unknown) (no (unknown) (unknown) trazodone 50 mg (units (unknown) date) tablet 50 mg PO unknown) BEDTIME PRN sleep 01/03/22 [History Confirmed (unknown) (no (unknown) (unknown) trazodone uses 2-4 (units (unknown) date) times weekly. She unknown) reports sleeping issues (snoring, talking (unknown) (no (unknown) (unknown) troubles, (units (unkn own) date) anhedonia, social unknown) withdrawal, or trouble with memory, focus, or (unknown) (no (unknown) (unknown) unspecified, (units (u nknown) date) R53.83 - Other unknown) fatigue (unknown) (no (unknown) (unknown) with kneecaps over (units (unknown) date) big toes. Perform unknown) 15-20 repetitions 1-2 times daily. Maintain (unknown) (no (unknown) (unknown) with sciatica, (units (unknown) date) right side; G89.29 unknown) - Other chronic pain (unknown) (no (unknown) (unknown) you have any (units (u nknown) date) problems. unknown) (unknown) (no (unknown) (unknown) your weight loss (units (unknown) date) goals. unknown) Result panel 43 (unknown) (no date) (unknown) (unknown) 12.2 % (unkn own) (unknown) (no date) (unknown) (unknown) 13.3 g/dl (unkn own) (unknown) (no date) (unknown) (unknown) 176 x10 3/ul (unkn own) (unknown) (no date) (unknown) (unknown) 29.0 pg (unkn own) (unknown) (no date) (unknown) (unknown) 33.4 % (unkn own) (unknown) (no date) (unknown) (unknown) 39.8 % (unkn own) (unknown) (no date) (unknown) (unknown) 4.57 x10 6/ul (unkn own) (unknown) (no date) (unknown) (unknown) 6.2 x10 3/ul (unkn own) (unknown) (no date) (unknown) (unknown) 87.0 fl (unkn own) Result panel 44 (unknown) (no date) (unknown) (unknown) > 60 ml/min (unkn own) (unknown) (no date) (unknown) (unknown) > 60 ml/min (unkn own) (unknown) (no date) (unknown) (unknown) 0.2 mg/dl (unkn own) (unknown) (no date) (unknown) (unknown) 0.80 mg/dl (unkn own) (unknown) (no date) (unknown) (unknown) 1.3 (units unknown) (unknown) (unknown) (no date) (unknown) (unknown) 10 mg/dl (unkn own) (unknown) (no date) (unknown) (unknown) 101 mmol/l (unkn own) (unknown) (no date) (unknown) (unknown) 108 mg/dl (unkn own) (unknown) (no date) (unknown) (unknown) 108 mg/dl (unkn own) (unknown) (no date) (unknown) (unknown) 12.5 (units unknown) (unknown) (unknown) (no date) (unknown) (unknown) 139 mmol/l (unkn own) (unknown) (no date) (unknown) (unknown) 161 mg/dl (unkn own) (unknown) (no date) (unknown) (unknown) 161 mg/dl (unkn own) (unknown) (no date) (unknown) (unknown) 19 iu/l (unkn own) (unknown) (no date) (unknown) (unknown) 23 iu/l (unkn own) (unknown) (no date) (unknown) (unknown) 3.2 g/dl (unkn own) (unknown) (no date) (unknown) (unknown) 31 mmol/l (unkn own) (unknown) (no date) (unknown) (unknown) 38 mg/dl (unkn own) (unknown) (no date) (unknown) (unknown) 38 mg/dl (unkn own) (unknown) (no date) (unknown) (unknown) 38 u/l (unkn own) (unknown) (no date) (unknown) (unknown) 4.3 g/dl (unkn own) (unknown) (no date) (unknown) (unknown) 4.5 mmol/l (unkn own) (unknown) (no date) (unknown) (unknown) 7.5 g/dl (unkn own) (unknown) (no date) (unknown) (unknown) 77 mg/dl (unkn own) (unknown) (no date) (unknown) (unknown) 77 mg/dl (unkn own) (unknown) (no date) (unknown) (unknown) 8.9 mg/dl (unkn own) (unknown) (no date) (unknown) (unknown) 92 mg/dl (unkn own) (unknown) (no date) (unknown) (unknown) 92 mg/dl (unkn own) Result panel 45 (unknown) (no date) (unknown) (unknown) > 60 ml/min (unkn own) (unknown) (no date) (unknown) (unknown) > 60 ml/min (unkn own) (unknown) (no date) (unknown) (unknown) 0.2 mg/dl (unkn own) (unknown) (no date) (unknown) (unknown) 0.80 mg/dl (unkn own) (unknown) (no date) (unknown) (unknown) 1.3 (units unknown) (unknown) (unknown) (no date) (unknown) (unknown) 10 mg/dl (unkn own) (unknown) (no date) (unknown) (unknown) 101 mmol/l (unkn own) (unknown) (no date) (unknown) (unknown) 108 mg/dl (unkn own) (unknown) (no date) (unknown) (unknown) 108 mg/dl (unkn own) (unknown) (no date) (unknown) (unknown) 12.5 (units unknown) (unknown) (unknown) (no date) (unknown) (unknown) 139 mmol/l (unkn own) (unknown) (no date) (unknown) (unknown) 161 mg/dl (unkn own) (unknown) (no date) (unknown) (unknown) 161 mg/dl (unkn own) (unknown) (no date) (unknown) (unknown) 19 iu/l (unkn own) (unknown) (no date) (unknown) (unknown) 23 iu/l (unkn own) (unknown) (no date) (unknown) (unknown) 3.2 g/dl (unkn own) (unknown) (no date) (unknown) (unknown) 31 mmol/l (unkn own) (unknown) (no date) (unknown) (unknown) 38 mg/dl (unkn own) (unknown) (no date) (unknown) (unknown) 38 mg/dl (unkn own) (unknown) (no date) (unknown) (unknown) 38 u/l (unkn own) (unknown) (no date) (unknown) (unknown) 4.3 g/dl (unkn own) (unknown) (no date) (unknown) (unknown) 4.5 mmol/l (unkn own) (unknown) (no date) (unknown) (unknown) 7.5 g/dl (unkn own) (unknown) (no date) (unknown) (unknown) 77 mg/dl (unkn own) (unknown) (no date) (unknown) (unknown) 77 mg/dl (unkn own) (unknown) (no date) (unknown) (unknown) 8.9 mg/dl (unkn own) (unknown) (no date) (unknown) (unknown) 92 mg/dl (unkn own) (unknown) (no date) (unknown) (unknown) 92 mg/dl (unkn own) Result panel 46 (unknown) (no date) (unknown) (unknown) 3.35 uiu/ml (unkn own) Result panel 47 (unknown) (no (unknown) (unknown) (no value) (units (unk nown) date) unknown) (unknown) (no (unknown) (unknown) 08/15/22 (units (unkno wn) date) unknown) (unknown) (no (unknown) (unknown) ADHD (-1998) (units (u nknown) date) unknown) (unknown) (no (unknown) (unknown) Abdominal pain (units (unknown) date) unknown) (unknown) (no (unknown) (unknown) Abnormal Pap (units (u nknown) date) smear of cervix unknown) (unknown) (no (unknown) (unknown) Abnormal chest (units (unknown) date) xray () unknown) (unknown) (no (unknown) (unknown) Age/Sex: 36 / F (units (unknown) date) Date of Service: unknown) (unknown) (no (unknown) (unknown) Allergies (units (unkn own) date) unknown) (unknown) (no (unknown) (unknown) [place], [place] (units ( unknown) date) [id number] unknown) (unknown) (no (unknown) (unknown) Anesthesia (units (unk nown) date) unknown) (unknown) (no (unknown) (unknown) Anxiety (units (unkno wn) date) unknown) (unknown) (no (unknown) (unknown) Asthma (units (unkno wn) date) unknown) (unknown) (no (unknown) (unknown) Attending Dr: (units ( unknown) date) Sivakumar Deleon unknown) (unknown) (no (unknown) (unknown) Carpal tunnel (units ( unknown) date) syndrome () unknown) (unknown) (no (unknown) (unknown) Cervical cancer (units (unknown) date) () unknown) (unknown) (no (unknown) (unknown) 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) date) oth disease unknown) (unknown) (no (unknown) (unknown) Chlamydia (units (unkn own) date) (2015) unknown) (unknown) (no (unknown) (unknown) Chronic insomnia (units (unknown) date) unknown) (unknown) (no (unknown) (unknown) Chronic low back (units (unknown) date) pain () unknown) (unknown) (no (unknown) (unknown) Chronic, (units (unkno wn) date) continuous use of unknown) opioids (unknown) (no (unknown) (unknown) : 1985 (units (unknown) date) Acct:[id number] unknown) (unknown) (no (unknown) (unknown) Depression (units (unk nown) date) unknown) (unknown) (no (unknown) (unknown) Dept at (units (unkno wn) date) . unknown) (unknown) (no (unknown) (unknown) Diverticular (units (u nknown) date) disease () unknown) (unknown) (no (unknown) (unknown) Documented By: (units (unknown) date) Sivakumar Deleon unknown) 08/15/22 1427 (unknown) (no (unknown) (unknown) Draft (units (unkno wn) date) unknown) (unknown) (no (unknown) (unknown) Family History (units (unknown) date) (Reviewed unknown) 08/02/22 @ 05:44 by Rafael Mcgee MD) (unknown) (no (unknown) (unknown) Father History (units (unknown) date) of heart disease unknown) (unknown) (no (unknown) (unknown) Fibromyalgia (units (u nknown) date) (-2016) unknown) (unknown) (no (unknown) (unknown) [facility]) (unknown) (no (unknown) (unknown) Gout (-2017) (units (u nknown) date) unknown) (unknown) (no (unknown) (unknown) Gynecology Visit (units (unknown) date) unknown) (unknown) (no (unknown) (unknown) H/O LEEP (units (unkno wn) date) unknown) (unknown) (no (unknown) (unknown) H/O laparoscopy (units (unknown) date) (-2010) unknown) (unknown) (no (unknown) (unknown) Herpes (-2019) (units (unknown) date) unknown) (unknown) (no (unknown) (unknown) History of (units (unk nown) date) unknown) (-08/08/04) (unknown) (no (unknown) (unknown) Human papilloma (units (unknown) date) virus (-2002) unknown) (unknown) (no (unknown) (unknown) Hyperlipidemia (units (unknown) date) unknown) (unknown) (no (unknown) (unknown) Hypertension (units (u nknown) date) unknown) (unknown) (no (unknown) (unknown) IUD Placement (units ( unknown) date) unknown) (unknown) (no (unknown) (unknown) Intake Note: (units (u nknown) date) unknown) (unknown) (no (unknown) (unknown) Intake performed (units (unknown) date) by: Yaneth Oliveira unknown) (unknown) (no (unknown) (unknown) Intake (units (unkno wn) date) unknown) (unknown) (no (unknown) (unknown) Intake- Clincial (units (unknown) date) Staff unknown) (unknown) (no (unknown) (unknown) Irritable bowel (units (unknown) date) syndrome () unknown) (unknown) (no (unknown) (unknown) Left ovarian (units (u nknown) date) cyst () unknown) (unknown) (no (unknown) (unknown) Loc: [facility] (units (unkno wn) date) unknown) (unknown) (no (unknown) (unknown) [id number] (units (unk nown) date) unknown) (unknown) (no (unknown) (unknown) Medical History (units (unknown) date) (Reviewed unknown) 08/02/22 @ 05:44 by Rafael Mcgee MD) (unknown) (no (unknown) (unknown) Mental health (units ( unknown) date) problem unknown) (unknown) (no (unknown) (unknown) Migraines (units (unkn own) date) () unknown) (unknown) (no (unknown) (unknown) Mother Diabetes (units (unknown) date) mellitus unknown) (unknown) (no (unknown) (unknown) No Known Drug (units ( unknown) date) Allergies Allergy unknown) (Verified 08/15/22 14:30) (unknown) (no (unknown) (unknown) PFSH (units (unkno wn) date) unknown) (unknown) (no (unknown) (unknown) Painful (units (unkno wn) date) menstrual periods unknown) (unknown) (no (unknown) (unknown) Patient: (units (unkno wn) date) Cory Osborne unknown) B MR#: (unknown) (no (unknown) (unknown) Reason For Visit (units (unknown) date) unknown) (unknown) (no (unknown) (unknown) Severe obesity (units (unknown) date) (BMI >= 40) unknown) (unknown) (no (unknown) (unknown) Shortness of (units (u nknown) date) breath unknown) (unknown) (no (unknown) (unknown) Signed By: (units (unk nown) date) unknown) (unknown) (no (unknown) (unknown) Sleep apnea (units (un known) date) () unknown) (unknown) (no (unknown) (unknown) Smoking Status: (units (unknown) date) Former smoker unknown) (unknown) (no (unknown) (unknown) Social History (units (unknown) date) unknown) (unknown) (no (unknown) (unknown) Status post (units (un known) date) right foot unknown) surgery () (unknown) (no (unknown) (unknown) Surgical History (units (unknown) date) (Reviewed unknown) 08/02/22 @ 05:44 by Rafael Mcgee MD) (unknown) (no (unknown) (unknown) This note may (units ( unknown) date) have been all or unknown) partially generated using voice recognition (unknown) (no (unknown) (unknown) Tobacco + (units (unkn own) date) Substance Use unknown) (unknown) (no (unknown) (unknown) Tobacco Status (units (unknown) date) unknown) (unknown) (no (unknown) (unknown) Visit Reasons: (units (unknown) date) IUD placement *no unknown) auth reqd (unknown) (no (unknown) (unknown) 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 (units (unknown) date) If there are any unknown) questions, please contact the Medical Records (unknown) (no (unknown) (unknown) may occur. (units (unk nown) date) Occasional unknown) wrong-word or 'sound-alike' substitutions may have (unknown) (no (unknown) (unknown) occurred due to (units (unknown) date) the inherent unknown) limitations of voice recognition software. Please (unknown) (no (unknown) (unknown) read the note (units ( unknown) date) carefully and unknown) recognize, using context, where these substitutions (unknown) (no (unknown) (unknown) software. 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 Result panel 48 (unknown) (no (unknown) (unknown) (no value) (units (unk nown) date) unknown) (unknown) (no (unknown) (unknown) 08/15/22 (units (unkno wn) date) unknown) (unknown) (no (unknown) (unknown) 08/15/22] (units (unkn own) date) unknown) (unknown) (no (unknown) (unknown) 14:43 (units (unkno wn) date) unknown) (unknown) (no (unknown) (unknown) ADHD (-1998) (units (u nknown) date) unknown) (unknown) (no (unknown) (unknown) Abdominal pain (units (unknown) date) unknown) (unknown) (no (unknown) (unknown) Abnormal Pap (units (u nknown) date) smear of cervix unknown) (unknown) (no (unknown) (unknown) Abnormal chest (units (unknown) date) xray (-2014) unknown) (unknown) (no (unknown) (unknown) Age/Sex: 36 / F (units (unknown) date) Date of Service: unknown) (unknown) (no (unknown) (unknown) Allergies (units (unkn own) date) unknown) (unknown) (no (unknown) (unknown) [place], [place] (units ( unknown) date) [id number] unknown) (unknown) (no (unknown) (unknown) Anesthesia (units (unk nown) date) unknown) (unknown) (no (unknown) (unknown) Anxiety (units (unkno wn) date) unknown) (unknown) (no (unknown) (unknown) Asthma (units (unkno wn) date) unknown) (unknown) (no (unknown) (unknown) Attending Dr: (units ( unknown) date) Sivakumar Deleon unknown) (unknown) (no (unknown) (unknown) BID 01/03/22 (units (u nknown) date) [History unknown) Confirmed 08/15/22] (unknown) (no (unknown) (unknown) BMI 46.1 (units (unkno wn) date) unknown) (unknown) (no (unknown) (unknown) BP 116/72 (units (unkn own) date) unknown) (unknown) (no (unknown) (unknown) Blood Pressure (units (unknown) date) Location Rt unknown) brachial (unknown) (no (unknown) (unknown) Carpal tunnel (units ( unknown) date) syndrome () unknown) (unknown) (no (unknown) (unknown) Cervical cancer (units (unknown) date) () unknown) (unknown) (no (unknown) (unknown) [id number] (units (unknown) date) oth disease unknown) (unknown) (no (unknown) (unknown) Chlamydia (units (unkn own) date) () unknown) (unknown) (no (unknown) (unknown) Chronic insomnia (units (unknown) date) unknown) (unknown) (no (unknown) (unknown) Chronic low back (units (unknown) date) pain () unknown) (unknown) (no (unknown) (unknown) Chronic, (units (unkno wn) date) continuous use of unknown) opioids (unknown) (no (unknown) (unknown) Confirmed (units (unkn own) date) 08/15/22] unknown) (unknown) (no (unknown) (unknown) : 1985 (units (unknown) date) Acct:[id number] unknown) (unknown) (no (unknown) (unknown) Depression (units (unk nown) date) unknown) (unknown) (no (unknown) (unknown) Dept at (units (unkno wn) date) . unknown) (unknown) (no (unknown) (unknown) Diverticular (units (u nknown) date) disease (-2020) unknown) (unknown) (no (unknown) (unknown) Documented By: (units (unknown) date) Sivakumar Deleon unknown) 08/15/22 1427 (unknown) (no (unknown) (unknown) Draft (units (unkno wn) date) unknown) (unknown) (no (unknown) (unknown) Family History (units (unknown) date) (Reviewed unknown) 08/02/22 @ 05:44 by Rafael Mcgee MD) (unknown) (no (unknown) (unknown) Father History (units (unknown) date) of heart disease unknown) (unknown) (no (unknown) (unknown) Fibromyalgia (units (u nknown) date) (-2016) unknown) (unknown) (no (unknown) (unknown) [facility] unknown) (unknown) (no (unknown) (unknown) Gout (-2017) (units (u nknown) date) unknown) (unknown) (no (unknown) (unknown) Gynecology Visit (units (unknown) date) unknown) (unknown) (no (unknown) (unknown) H/O LEEP (units (unkno wn) date) unknown) (unknown) (no (unknown) (unknown) H/O laparoscopy (units (unknown) date) () unknown) (unknown) (no (unknown) (unknown) Height 5 ft 6 in (units (unknown) date) unknown) (unknown) (no (unknown) (unknown) Herpes (-2019) (units (unknown) date) unknown) (unknown) (no (unknown) (unknown) History of (units (unk nown) date) unknown) (-08/08/04) (unknown) (no (unknown) (unknown) Human papilloma (units (unknown) date) virus (-2003) unknown) (unknown) (no (unknown) (unknown) Hyperlipidemia (units (unknown) date) unknown) (unknown) (no (unknown) (unknown) Hypertension (units (u nknown) date) unknown) (unknown) (no (unknown) (unknown) IUD Placement (units ( unknown) date) unknown) (unknown) (no (unknown) (unknown) Intake Note: (units (u nknown) date) unknown) (unknown) (no (unknown) (unknown) Intake performed (units (unknown) date) by: Yaneth Oliveira unknown) (unknown) (no (unknown) (unknown) Intake (units (unkno wn) date) unknown) (unknown) (no (unknown) (unknown) Intake- Clincial (units (unknown) date) Staff unknown) (unknown) (no (unknown) (unknown) Irritable bowel (units (unknown) date) syndrome () unknown) (unknown) (no (unknown) (unknown) Is last (units (unkno wn) date) menstrual period unknown) known: No (unknown) (no (unknown) (unknown) Last Menstural (units (unknown) date) Cycle + Details unknown) (unknown) (no (unknown) (unknown) Left ovarian (units (u nknown) date) cyst () unknown) (unknown) (no (unknown) (unknown) Loc: [facility] (units (unkno wn) date) unknown) (unknown) (no (unknown) (unknown) [id number] (units (unk nown) date) unknown) (unknown) (no (unknown) (unknown) Medical History (units (unknown) date) (Reviewed unknown) 08/02/22 @ 05:44 by Rafael Mcgee MD) (unknown) (no (unknown) (unknown) Medications (units (un known) date) unknown) (unknown) (no (unknown) (unknown) Mental health (units ( unknown) date) problem unknown) (unknown) (no (unknown) (unknown) Migraines (units (unkn own) date) (-2003) unknown) (unknown) (no (unknown) (unknown) Mother Diabetes (units (unknown) date) mellitus unknown) (unknown) (no (unknown) (unknown) No Known Drug (units ( unknown) date) Allergies Allergy unknown) (Verified 08/15/22 14:43) (unknown) (no (unknown) (unknown) PFSH (units (unkno wn) date) unknown) (unknown) (no (unknown) (unknown) Painful (units (unkno wn) date) menstrual periods unknown) (unknown) (no (unknown) (unknown) Patient: (units (unkno wn) date) Cory Osborne unknown) B MR#: (unknown) (no (unknown) (unknown) Position Sitting (units (unknown) date) unknown) (unknown) (no (unknown) (unknown) Reason For Visit (units (unknown) date) unknown) (unknown) (no (unknown) (unknown) Severe obesity (units (unknown) date) (BMI >= 40) unknown) (unknown) (no (unknown) (unknown) Shortness of (units (u nknown) date) breath unknown) (unknown) (no (unknown) (unknown) Signed By: (units (unk nown) date) unknown) (unknown) (no (unknown) (unknown) Sleep apnea (units (un known) date) () unknown) (unknown) (no (unknown) (unknown) Smoking Status: (units (unknown) date) Former smoker unknown) (unknown) (no (unknown) (unknown) Social History (units (unknown) date) unknown) (unknown) (no (unknown) (unknown) Status post (units (un known) date) right foot unknown) surgery () (unknown) (no (unknown) (unknown) Surgical History (units (unknown) date) (Reviewed unknown) 08/02/22 @ 05:44 by Rafael Mcgee MD) (unknown) (no (unknown) (unknown) This note may (units ( unknown) date) have been all or unknown) partially generated using voice recognition (unknown) (no (unknown) (unknown) Tobacco + (units (unkn own) date) Substance Use unknown) (unknown) (no (unknown) (unknown) Tobacco Status (units (unknown) date) unknown) (unknown) (no (unknown) (unknown) Visit Reasons: (units (unknown) date) IUD placement *no unknown) auth reqd (unknown) (no (unknown) (unknown) Vitals (units (unkno wn) date) unknown) (unknown) (no (unknown) (unknown) Weight 286 lb (units ( unknown) date) unknown) (unknown) (no (unknown) (unknown) [History (units (unkno wn) date) Confirmed unknown) 08/15/22] (unknown) (no (unknown) (unknown) buprenorphine 8 (units (unknown) date) mg-naloxone 2 mg unknown) sublingual film (Suboxone) 1 film sublingual (unknown) (no (unknown) (unknown) bupropion HCl (units ( unknown) date) 300 mg 24 hr unknown) tablet, extended release 300 mg PO DAILY 01/03/22 (unknown) (no (unknown) (unknown) 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 (units (unknown) date) If there are any unknown) questions, please contact the Medical Records (unknown) (no (unknown) (unknown) may occur. (units (unk nown) date) Occasional unknown) wrong-word or 'sound-alike' substitutions may have (unknown) (no (unknown) (unknown) occurred due to (units (unknown) date) the inherent unknown) limitations of voice recognition software. Please (unknown) (no (unknown) (unknown) oxycodone 5 mg (units (unknown) date) tablet 5 mg PO unknown) ONCE pain #1 tab 07/31/22 [Rx Confirmed 08/15/22] (unknown) (no (unknown) (unknown) oxycodone 5 mg (units (unknown) date) tablet 5 mg PO unknown) Q12H PRN pain, severe #5 tabs 06/07/22 [Rx (unknown) (no (unknown) (unknown) read the note (units ( unknown) date) carefully and unknown) recognize, using context, where these substitutions (unknown) (no (unknown) (unknown) software. 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 (unknown) (no (unknown) (unknown) trazodone 50 mg (units (unknown) date) tablet 50 mg PO unknown) BEDTIME PRN sleep 01/03/22 [History Confirmed (unknown) (no (unknown) (unknown) upon check in pt (units (unknown) date) states that she unknown) does also have a nexplanon in place Result panel 49 (unknown) (no (unknown) (unknown) (no value) (units (unk nown) date) unknown) (unknown) (no (unknown) (unknown) 08/15/22 (units (unkno wn) date) unknown) (unknown) (no (unknown) (unknown) 08/15/22] (units (unkn own) date) unknown) (unknown) (no (unknown) (unknown) 14:43 (units (unkno wn) date) unknown) (unknown) (no (unknown) (unknown) ADHD (-1998) (units (u nknown) date) unknown) (unknown) (no (unknown) (unknown) Abdominal pain (units (unknown) date) unknown) (unknown) (no (unknown) (unknown) Abnormal Pap (units (u nknown) date) smear of cervix unknown) (unknown) (no (unknown) (unknown) Abnormal chest (units (unknown) date) xray () unknown) (unknown) (no (unknown) (unknown) Age/Sex: 36 / F (units (unknown) date) Date of Service: unknown) (unknown) (no (unknown) (unknown) Allergies (units (unkn own) date) unknown) (unknown) (no (unknown) (unknown) [place], [place] (units ( unknown) date) [id number] unknown) (unknown) (no (unknown) (unknown) Anesthesia (units (unk nown) date) unknown) (unknown) (no (unknown) (unknown) Anxiety (units (unkno wn) date) unknown) (unknown) (no (unknown) (unknown) Asthma (units (unkno wn) date) unknown) (unknown) (no (unknown) (unknown) Attending Dr: (units ( unknown) date) Sivakumar Deleon unknown) (unknown) (no (unknown) (unknown) BID 01/03/22 (units (u nknown) date) [History unknown) Confirmed 08/15/22] (unknown) (no (unknown) (unknown) BMI 46.1 (units (unkno wn) date) unknown) (unknown) (no (unknown) (unknown) BP 116/72 (units (unkn own) date) unknown) (unknown) (no (unknown) (unknown) Blood Pressure (units (unknown) date) Location Rt unknown) brachial (unknown) (no (unknown) (unknown) Carpal tunnel (units ( unknown) date) syndrome () unknown) (unknown) (no (unknown) (unknown) Cervical cancer (units (unknown) date) () unknown) (unknown) (no (unknown) (unknown) [id number] (units (unknown) date) oth disease unknown) (unknown) (no (unknown) (unknown) Chief Complaint (units (unknown) date) unknown) (unknown) (no (unknown) (unknown) Chief Complaint: (units (unknown) date) IUD placement, unknown) Nexplanon removal (unknown) (no (unknown) (unknown) Chlamydia (units (unkn own) date) () unknown) (unknown) (no (unknown) (unknown) Chronic insomnia (units (unknown) date) unknown) (unknown) (no (unknown) (unknown) Chronic low back (units (unknown) date) pain () unknown) (unknown) (no (unknown) (unknown) Chronic, (units (unkno wn) date) continuous use of unknown) opioids (unknown) (no (unknown) (unknown) Confirmed (units (unkn own) date) 08/15/22] unknown) (unknown) (no (unknown) (unknown) : 1985 (units (unknown) date) Acct:[id number] unknown) (unknown) (no (unknown) (unknown) Depression (units (unk nown) date) unknown) (unknown) (no (unknown) (unknown) Dept at (units (unkno wn) date) . unknown) (unknown) (no (unknown) (unknown) Details: (units (unkno wn) date) unknown) (unknown) (no (unknown) (unknown) Diverticular (units (u nknown) date) disease () unknown) (unknown) (no (unknown) (unknown) Documented By: (units (unknown) date) Sivakumar Deleon unknownAsmita RIVERA 08/15/22 1427 (unknown) (no (unknown) (unknown) Draft (units (unkno wn) date) unknown) (unknown) (no (unknown) (unknown) Family History (units (unknown) date) (Reviewed unknown) 08/02/22 @ 05:44 by Rafael Mcgee MD) (unknown) (no (unknown) (unknown) Father History (units (unknown) date) of heart disease unknown) (unknown) (no (unknown) (unknown) Fibromyalgia (units (u nknown) date) (-2015) unknown) (unknown) (no (unknown) (unknown) [facility] unknown) (unknown) (no (unknown) (unknown) Gout (-2016) (units (u nknown) date) unknown) (unknown) (no (unknown) (unknown) Gynecology Visit (units (unknown) date) unknown) (unknown) (no (unknown) (unknown) H/O LEEP (units (unkno wn) date) unknown) (unknown) (no (unknown) (unknown) H/O laparoscopy (units (unknown) date) () unknown) (unknown) (no (unknown) (unknown) HPI (units (unkno wn) date) unknown) (unknown) (no (unknown) (unknown) Height 5 ft 6 in (units (unknown) date) unknown) (unknown) (no (unknown) (unknown) Herpes () (units (unknown) date) unknown) (unknown) (no (unknown) (unknown) History of (units (unk nown) date) unknown) (-08/08/04) (unknown) (no (unknown) (unknown) Human papilloma (units (unknown) date) virus () unknown) (unknown) (no (unknown) (unknown) Hyperlipidemia (units (unknown) date) unknown) (unknown) (no (unknown) (unknown) Hypertension (units (u nknown) date) unknown) (unknown) (no (unknown) (unknown) IUD Placement (units ( unknown) date) unknown) (unknown) (no (unknown) (unknown) Intake Note: (units (u nknown) date) unknown) (unknown) (no (unknown) (unknown) Intake performed (units (unknown) date) by: Yaneth Oliveira unknown) (unknown) (no (unknown) (unknown) Intake (units (unkno wn) date) unknown) (unknown) (no (unknown) (unknown) Intake- Clincial (units (unknown) date) Staff unknown) (unknown) (no (unknown) (unknown) Irritable bowel (units (unknown) date) syndrome (-2008) unknown) (unknown) (no (unknown) (unknown) Is last (units (unkno wn) date) menstrual period unknown) known: No (unknown) (no (unknown) (unknown) Last Menstural (units (unknown) date) Cycle + Details unknown) (unknown) (no (unknown) (unknown) Left ovarian (units (u nknown) date) cyst () unknown) (unknown) (no (unknown) (unknown) Loc: [facility] (units (unkno wn) date) unknown) (unknown) (no (unknown) (unknown) [id number] (units (unk nown) date) unknown) (unknown) (no (unknown) (unknown) Medical History (units (unknown) date) (Reviewed unknown) 08/02/22 @ 05:44 by Rafael Mcgee MD) (unknown) (no (unknown) (unknown) Medications (units (un known) date) unknown) (unknown) (no (unknown) (unknown) Mental health (units ( unknown) date) problem unknown) (unknown) (no (unknown) (unknown) Migraines (units (unkn own) date) (-2003) unknown) (unknown) (no (unknown) (unknown) Mother Diabetes (units (unknown) date) mellitus unknown) (unknown) (no (unknown) (unknown) Cory comes in (units (unknown) date) today for unknown) insertion of a Mirena IUD due to her presumptive (unknown) (no (unknown) (unknown) No Known Drug (units ( unknown) date) Allergies Allergy unknown) (Verified 08/15/22 14:43) (unknown) (no (unknown) (unknown) PFSH (units (unkno wn) date) unknown) (unknown) (no (unknown) (unknown) Painful (units (unkno wn) date) menstrual periods unknown) (unknown) (no (unknown) (unknown) Patient: (units (unkno wn) date) Clemente,Cory unknown) B MR#: (unknown) (no (unknown) (unknown) Position Sitting (units (unknown) date) unknown) (unknown) (no (unknown) (unknown) Reason For Visit (units (unknown) date) unknown) (unknown) (no (unknown) (unknown) Severe obesity (units (unknown) date) (BMI >= 40) unknown) (unknown) (no (unknown) (unknown) Shortness of (units (u nknown) date) breath unknown) (unknown) (no (unknown) (unknown) Signed By: (units (unk nown) date) unknown) (unknown) (no (unknown) (unknown) Sleep apnea (units (un known) date) () unknown) (unknown) (no (unknown) (unknown) Smoking Status: (units (unknown) date) Former smoker unknown) (unknown) (no (unknown) (unknown) Social History (units (unknown) date) unknown) (unknown) (no (unknown) (unknown) Status post (units (un known) date) right foot unknown) surgery () (unknown) (no (unknown) (unknown) Surgical History (units (unknown) date) (Reviewed unknown) 08/02/22 @ 05:44 by Rafael Mcgee MD) (unknown) (no (unknown) (unknown) This note may (units ( unknown) date) have been all or unknown) partially generated using voice recognition (unknown) (no (unknown) (unknown) Tobacco + (units (unkn own) date) Substance Use unknown) (unknown) (no (unknown) (unknown) Tobacco Status (units (unknown) date) unknown) (unknown) (no (unknown) (unknown) Visit Reasons: (units (unknown) date) IUD placement *no unknown) auth reqd (unknown) (no (unknown) (unknown) Vitals (units (unkno wn) date) unknown) (unknown) (no (unknown) (unknown) Weight 286 lb (units ( unknown) date) unknown) (unknown) (no (unknown) (unknown) [History (units (unkno wn) date) Confirmed unknown) 08/15/22] (unknown) (no (unknown) (unknown) buprenorphine 8 (units (unknown) date) mg-naloxone 2 mg unknown) sublingual film (Suboxone) 1 film sublingual (unknown) (no (unknown) (unknown) bupropion HCl (units ( unknown) date) 300 mg 24 hr unknown) tablet, extended release 300 mg PO DAILY 01/03/22 (unknown) (no (unknown) (unknown) 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 unknown) Patient has had a Mirena previously and tolerated it (unknown) (no (unknown) (unknown) duloxetine 30 mg (units (unknown) date) capsule,delayed unknown) release (Cymbalta) 30 mg PO BID 08/02/22 (unknown) (no (unknown) (unknown) have occurred. (units (unknown) date) If there are any unknown) questions, please contact the Medical Records (unknown) (no (unknown) (unknown) her request. (units (u nknown) date) unknown) (unknown) (no (unknown) (unknown) may occur. (units (unk nown) date) Occasional unknown) wrong-word or 'sound-alike' substitutions may have (unknown) (no (unknown) (unknown) occurred due to (units (unknown) date) the inherent unknown) limitations of voice recognition software. Please (unknown) (no (unknown) (unknown) oxycodone 5 mg (units (unknown) date) tablet 5 mg PO unknown) ONCE pain #1 tab 07/31/22 [Rx Confirmed 08/15/22] (unknown) (no (unknown) (unknown) oxycodone 5 mg (units (unknown) date) tablet 5 mg PO unknown) Q12H PRN pain, severe #5 tabs 06/07/22 [Rx (unknown) (no (unknown) (unknown) read the note (units ( unknown) date) carefully and unknown) recognize, using context, where these substitutions (unknown) (no (unknown) (unknown) software. 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 Patient (units ( unknown) date) also has a unknown) Nexplanon in-situ in that to will be removed today at Result panel 50 (unknown) (no (unknown) (unknown) (no value) (units (unk nown) date) unknown) (unknown) (no (unknown) (unknown) 08/15/22 (units (unkno wn) date) unknown) (unknown) (no (unknown) (unknown) 08/15/22] (units (unkn own) date) unknown) (unknown) (no (unknown) (unknown) 14:43 (units (unkno wn) date) unknown) (unknown) (no (unknown) (unknown) ADHD (-1998) (units (u nknown) date) unknown) (unknown) (no (unknown) (unknown) Abdominal pain (units (unknown) date) unknown) (unknown) (no (unknown) (unknown) Abnormal Pap (units (u nknown) date) smear of cervix unknown) (unknown) (no (unknown) (unknown) Abnormal chest (units (unknown) date) xray (-2014) unknown) (unknown) (no (unknown) (unknown) Affect: normal (units (unknown) date) affect unknown) (unknown) (no (unknown) (unknown) Age/Sex: 36 / F (units (unknown) date) Date of Service: unknown) (unknown) (no (unknown) (unknown) Allergies (units (unkn own) date) unknown) (unknown) (no (unknown) (unknown) [place], [place] (units ( unknown) date) [id number] unknown) (unknown) (no (unknown) (unknown) Anesthesia (units (unk nown) date) unknown) (unknown) (no (unknown) (unknown) Anxiety (units (unkno wn) date) unknown) (unknown) (no (unknown) (unknown) Appearance: (units (un known) date) grossly normal unknown) (unknown) (no (unknown) (unknown) Asthma (units (unkno wn) date) unknown) (unknown) (no (unknown) (unknown) Attending Dr: (units ( unknown) date) Sivakumar Deleon unknown) MD (unknown) (no (unknown) (unknown) Attitude: (units (unkn own) date) cooperative unknown) (unknown) (no (unknown) (unknown) BID 01/03/22 (units (u nknown) date) [History unknown) Confirmed 08/15/22] (unknown) (no (unknown) (unknown) BMI 46.1 (units (unkno wn) date) unknown) (unknown) (no (unknown) (unknown) BP 116/72 (units (unkn own) date) unknown) (unknown) (no (unknown) (unknown) Blood Pressure (units (unknown) date) Location Rt unknown) brachial (unknown) (no (unknown) (unknown) Carpal tunnel (units ( unknown) date) syndrome () unknown) (unknown) (no (unknown) (unknown) Cervical cancer (units (unknown) date) () unknown) (unknown) (no (unknown) (unknown) [id number] (units (unknown) date) oth disease unknown) (unknown) (no (unknown) (unknown) Chief Complaint (units (unknown) date) unknown) (unknown) (no (unknown) (unknown) Chief Complaint: (units (unknown) date) IUD placement, unknown) Nexplanon removal (unknown) (no (unknown) (unknown) Chlamydia (units (unkn own) date) () unknown) (unknown) (no (unknown) (unknown) Chronic insomnia (units (unknown) date) unknown) (unknown) (no (unknown) (unknown) Chronic low back (units (unknown) date) pain () unknown) (unknown) (no (unknown) (unknown) Chronic, (units (unkno wn) date) continuous use of unknown) opioids (unknown) (no (unknown) (unknown) Confirmed (units (unkn own) date) 08/15/22] unknown) (unknown) (no (unknown) (unknown) Conjunctivae: (units ( unknown) date) conjunctivae unknown) normal (unknown) (no (unknown) (unknown) Const (units (unkno wn) date) unknown) (unknown) (no (unknown) (unknown) : 1985 (units (unknown) date) Acct:[id number] unknown) (unknown) (no (unknown) (unknown) Depression (units (unk nown) date) unknown) (unknown) (no (unknown) (unknown) Dept at (units (unkno wn) date) . unknown) (unknown) (no (unknown) (unknown) Details: (units (unkno wn) date) unknown) (unknown) (no (unknown) (unknown) Diverticular (units (u nknown) date) disease () unknown) (unknown) (no (unknown) (unknown) Documented By: (units (unknown) date) Sivakumar Deleon unknownAsmita RIVERA 08/15/22 1427 (unknown) (no (unknown) (unknown) Draft (units (unkno wn) date) unknown) (unknown) (no (unknown) (unknown) EOM: EOM intact (units (unknown) date) bilaterally unknown) (unknown) (no (unknown) (unknown) Ears: hearing (units ( unknown) date) grossly normal unknown) bilaterally (unknown) (no (unknown) (unknown) Effort + (units (unkno wn) date) Inspection: unknown) normal respiratory effort and able to speak in complete (unknown) (no (unknown) (unknown) Exam (units (unkno wn) date) unknown) (unknown) (no (unknown) (unknown) Eyes (units (unkno wn) date) unknown) (unknown) (no (unknown) (unknown) Face and sinus: (units (unknown) date) face symmetric unknown) (unknown) (no (unknown) (unknown) Family History (units (unknown) date) (Reviewed unknown) 08/02/22 @ 05:44 by Rafael Mcgee MD) (unknown) (no (unknown) (unknown) Father History (units (unknown) date) of heart disease unknown) (unknown) (no (unknown) (unknown) Fibromyalgia (units (u nknown) date) (-2016) unknown) (unknown) (no (unknown) (unknown) [facility] unknown) (unknown) (no (unknown) (unknown) (units (unkno wn) date) unknown) (unknown) (no (unknown) (unknown) General: (units (unkno wn) date) appearance unknown) normal, both eyes and all related structures (unknown) (no (unknown) (unknown) General: (units (unkno wn) date) cooperative, unknown) comfortable and no acute distress (unknown) (no (unknown) (unknown) General: (units (unkno wn) date) deferred unknown) (unknown) (no (unknown) (unknown) Gout (-2017) (units (u nknown) date) unknown) (unknown) (no (unknown) (unknown) Gynecology Visit (units (unknown) date) unknown) (unknown) (no (unknown) (unknown) H/O LEEP (units (unkno wn) date) unknown) (unknown) (no (unknown) (unknown) H/O laparoscopy (units (unknown) date) () unknown) (unknown) (no (unknown) (unknown) HENMT (units (unkno wn) date) unknown) (unknown) (no (unknown) (unknown) HPI (units (unkno wn) date) unknown) (unknown) (no (unknown) (unknown) Head: normal to (units (unknown) date) inspection, unknown) normocephalic and atraumatic (unknown) (no (unknown) (unknown) Height 5 ft 6 in (units (unknown) date) unknown) (unknown) (no (unknown) (unknown) Herpes () (units (unknown) date) unknown) (unknown) (no (unknown) (unknown) History of (units (unk nown) date) unknown) (-08/08/04) (unknown) (no (unknown) (unknown) Human papilloma (units (unknown) date) virus (-2002) unknown) (unknown) (no (unknown) (unknown) Hyperlipidemia (units (unknown) date) unknown) (unknown) (no (unknown) (unknown) Hypertension (units (u nknown) date) unknown) (unknown) (no (unknown) (unknown) IUD Placement (units ( unknown) date) unknown) (unknown) (no (unknown) (unknown) Intake Note: (units (u nknown) date) unknown) (unknown) (no (unknown) (unknown) Intake performed (units (unknown) date) by: Yaneth Oliveira unknown) (unknown) (no (unknown) (unknown) Intake (units (unkno wn) date) unknown) (unknown) (no (unknown) (unknown) Intake- Clincial (units (unknown) date) Staff unknown) (unknown) (no (unknown) (unknown) Irritable bowel (units (unknown) date) syndrome (-2008) unknown) (unknown) (no (unknown) (unknown) Is last (units (unkno wn) date) menstrual period unknown) known: No (unknown) (no (unknown) (unknown) Judgment: (units (unkn own) date) judgment good unknown) (unknown) (no (unknown) (unknown) Last Menstural (units (unknown) date) Cycle + Details unknown) (unknown) (no (unknown) (unknown) Left ovarian (units (u nknown) date) cyst () unknown) (unknown) (no (unknown) (unknown) Loc: [facility] (units (unkno wn) date) unknown) (unknown) (no (unknown) (unknown) [id number] (units (unk nown) date) unknown) (unknown) (no (unknown) (unknown) Medical History (units (unknown) date) (Reviewed unknown) 08/02/22 @ 05:44 by Rafael Mcgee MD) (unknown) (no (unknown) (unknown) Medications (units (un known) date) unknown) (unknown) (no (unknown) (unknown) Mental Status: (units (unknown) date) mental status unknown) grossly normal (unknown) (no (unknown) (unknown) Mental health (units ( unknown) date) problem unknown) (unknown) (no (unknown) (unknown) Migraines (units (unkn own) date) () unknown) (unknown) (no (unknown) (unknown) Mood: congruent (units (unknown) date) mood unknown) (unknown) (no (unknown) (unknown) Mother Diabetes (units (unknown) date) mellitus unknown) (unknown) (no (unknown) (unknown) Cory comes in (units (unknown) date) today for unknown) insertion of a Mirena IUD due to her presumptive (unknown) (no (unknown) (unknown) Neck (units (unkno wn) date) unknown) (unknown) (no (unknown) (unknown) Neck: normal (units (u nknown) date) visual inspection unknown) (unknown) (no (unknown) (unknown) No Known Drug (units ( unknown) date) Allergies Allergy unknown) (Verified 08/15/22 14:43) (unknown) (no (unknown) (unknown) Nutritional (units (un known) date) Appearance: unknown) average body habitus (unknown) (no (unknown) (unknown) Orientation: (units (u nknown) date) alert and unknown) oriented x3 (unknown) (no (unknown) (unknown) PFSH (units (unkno wn) date) unknown) (unknown) (no (unknown) (unknown) Painful (units (unkno wn) date) menstrual periods unknown) (unknown) (no (unknown) (unknown) Patient: (units (unkno wn) date) Cory Osborne unknown) B MR#: (unknown) (no (unknown) (unknown) Position Sitting (units (unknown) date) unknown) (unknown) (no (unknown) (unknown) Problem-specific (units (unknown) date) ROS positives unknown) included with the HPI (unknown) (no (unknown) (unknown) Psych (units (unkno wn) date) unknown) (unknown) (no (unknown) (unknown) ROS Narrative (units ( unknown) date) unknown) (unknown) (no (unknown) (unknown) ROS Narrative: (units (unknown) date) unknown) (unknown) (no (unknown) (unknown) ROS (units (unkno wn) date) unknown) (unknown) (no (unknown) (unknown) Reason For Visit (units (unknown) date) unknown) (unknown) (no (unknown) (unknown) Resp (units (unkno wn) date) unknown) (unknown) (no (unknown) (unknown) Sclera: sclerae (units (unknown) date) normal unknown) (unknown) (no (unknown) (unknown) Severe obesity (units (unknown) date) (BMI >= 40) unknown) (unknown) (no (unknown) (unknown) Shortness of (units (u nknown) date) breath unknown) (unknown) (no (unknown) (unknown) Signed By: (units (unk nown) date) unknown) (unknown) (no (unknown) (unknown) Sleep apnea (units (un known) date) () unknown) (unknown) (no (unknown) (unknown) Smoking Status: (units (unknown) date) Former smoker unknown) (unknown) (no (unknown) (unknown) Social History (units (unknown) date) unknown) (unknown) (no (unknown) (unknown) Speech and (units (unk nown) date) Movement: speech unknown) and movement normal (unknown) (no (unknown) (unknown) Status post (units (un known) date) right foot unknown) surgery () (unknown) (no (unknown) (unknown) Surgical History (units (unknown) date) (Reviewed unknown) 08/02/22 @ 05:44 by Rafael Mcgee MD) (unknown) (no (unknown) (unknown) This note may (units ( unknown) date) have been all or unknown) partially generated using voice recognition (unknown) (no (unknown) (unknown) Thought Content: (units (unknown) date) normal unknown) (unknown) (no (unknown) (unknown) Thought Process: (units (unknown) date) normal unknown) (unknown) (no (unknown) (unknown) Tobacco + (units (unkn own) date) Substance Use unknown) (unknown) (no (unknown) (unknown) Tobacco Status (units (unknown) date) unknown) (unknown) (no (unknown) (unknown) Visit Reasons: (units (unknown) date) IUD placement *no unknown) auth reqd (unknown) (no (unknown) (unknown) Vitals (units (unkno wn) date) unknown) (unknown) (no (unknown) (unknown) Weight 286 lb (units ( unknown) date) unknown) (unknown) (no (unknown) (unknown) [History (units (unkno wn) date) Confirmed unknown) 08/15/22] (unknown) (no (unknown) (unknown) buprenorphine 8 (units (unknown) date) mg-naloxone 2 mg unknown) sublingual film (Suboxone) 1 film sublingual (unknown) (no (unknown) (unknown) bupropion HCl (units ( unknown) date) 300 mg 24 hr unknown) tablet, extended release 300 mg PO DAILY 01/03/22 (unknown) (no (unknown) (unknown) 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 unknown) Patient has had a Mirena previously and tolerated it (unknown) (no (unknown) (unknown) duloxetine 30 mg (units (unknown) date) capsule,delayed unknown) release (Cymbalta) 30 mg PO BID 08/02/22 (unknown) (no (unknown) (unknown) have occurred. (units (unknown) date) If there are any unknown) questions, please contact the Medical Records (unknown) (no (unknown) (unknown) her request. (units (u nknown) date) unknown) (unknown) (no (unknown) (unknown) may occur. (units (unk nown) date) Occasional unknown) wrong-word or 'sound-alike' substitutions may have (unknown) (no (unknown) (unknown) occurred due to (units (unknown) date) the inherent unknown) limitations of voice recognition software. Please (unknown) (no (unknown) (unknown) oxycodone 5 mg (units (unknown) date) tablet 5 mg PO unknown) ONCE pain #1 tab 07/31/22 [Rx Confirmed 08/15/22] (unknown) (no (unknown) (unknown) oxycodone 5 mg (units (unknown) date) tablet 5 mg PO unknown) Q12H PRN pain, severe #5 tabs 06/07/22 [Rx (unknown) (no (unknown) (unknown) read the note (units ( unknown) date) carefully and unknown) recognize, using context, where these substitutions (unknown) (no (unknown) (unknown) sentences (units (unkn own) date) unknown) (unknown) (no (unknown) (unknown) software. 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 Patient (units ( unknown) date) also has a unknown) Nexplanon in-situ in that to will be removed today at Result panel 51 (unknown) (no (unknown) (unknown) (no value) (units (unk nown) date) unknown) (unknown) (no (unknown) (unknown) 08/15/22 (units (unkno wn) date) unknown) (unknown) (no (unknown) (unknown) 08/15/22] (units (unkn own) date) unknown) (unknown) (no (unknown) (unknown) 14:43 (units (unkno wn) date) unknown) (unknown) (no (unknown) (unknown) 150 mg IM Left (units (unknown) date) Glute [id number] unknown) 04/06/24 [id number] [facility] (unknown) (no (unknown) (unknown) ADHD (-1998) (units (u nknown) date) unknown) (unknown) (no (unknown) (unknown) Abdominal pain (units (unknown) date) unknown) (unknown) (no (unknown) (unknown) Abnormal Pap (units (u nknown) date) smear of cervix unknown) (unknown) (no (unknown) (unknown) Abnormal chest (units (unknown) date) xray (-2014) unknown) (unknown) (no (unknown) (unknown) Administered by: (units (unknown) date) Yaneth Oliveira MA unknown) on 08/15/22 17:00 (unknown) (no (unknown) (unknown) Affect: normal (units (unknown) date) affect unknown) (unknown) (no (unknown) (unknown) Age/Sex: 36 / F (units (unknown) date) Date of Service: unknown) (unknown) (no (unknown) (unknown) Allergies (units (unkn own) date) unknown) (unknown) (no (unknown) (unknown) [place], [place] (units ( unknown) date) [id number] unknown) (unknown) (no (unknown) (unknown) Anesthesia (units (unk nown) date) unknown) (unknown) (no (unknown) (unknown) Anxiety (units (unkno wn) date) unknown) (unknown) (no (unknown) (unknown) Appearance: (units (un known) date) grossly normal unknown) (unknown) (no (unknown) (unknown) Assessment + (units (u nknown) date) Plan unknown) (unknown) (no (unknown) (unknown) Asthma (units (unkno wn) date) unknown) (unknown) (no (unknown) (unknown) Attending Dr: (units ( unknown) date) Sivakumar Deleon unknown) (unknown) (no (unknown) (unknown) Attitude: (units (unkn own) date) cooperative unknown) (unknown) (no (unknown) (unknown) BID 01/03/22 (units (u nknown) date) [History unknown) Confirmed 08/15/22] (unknown) (no (unknown) (unknown) BMI 46.1 (units (unkno wn) date) unknown) (unknown) (no (unknown) (unknown) BP 116/72 (units (unkn own) date) unknown) (unknown) (no (unknown) (unknown) Blood Pressure (units (unknown) date) Location Rt unknown) brachial (unknown) (no (unknown) (unknown) Carpal tunnel (units ( unknown) date) syndrome () unknown) (unknown) (no (unknown) (unknown) Cervical cancer (units (unknown) date) () unknown) (unknown) (no (unknown) (unknown) [id number] (units (unknown) date) oth disease unknown) (unknown) (no (unknown) (unknown) Chief Complaint (units (unknown) date) unknown) (unknown) (no (unknown) (unknown) Chief Complaint: (units (unknown) date) IUD placement, unknown) Nexplanon removal (unknown) (no (unknown) (unknown) Chlamydia (units (unkn own) date) () unknown) (unknown) (no (unknown) (unknown) Chronic insomnia (units (unknown) date) unknown) (unknown) (no (unknown) (unknown) Chronic low back (units (unknown) date) pain () unknown) (unknown) (no (unknown) (unknown) Chronic, (units (unkno wn) date) continuous use of unknown) opioids (unknown) (no (unknown) (unknown) Confirmed (units (unkn own) date) 08/15/22] unknown) (unknown) (no (unknown) (unknown) Conjunctivae: (units ( unknown) date) conjunctivae unknown) normal (unknown) (no (unknown) (unknown) Const (units (unkno wn) date) unknown) (unknown) (no (unknown) (unknown) : 1985 (units (unknown) date) Acct:[id number] unknown) (unknown) (no (unknown) (unknown) Depo-Provera (units (u nknown) date) 150mg Today D25.9 unknown) - Leiomyoma of uterus, unspecified (unknown) (no (unknown) (unknown) Depo-Provera (units (u nknown) date) unknown) (unknown) (no (unknown) (unknown) Depression (units (unk nown) date) unknown) (unknown) (no (unknown) (unknown) Dept at (units (unkno wn) date) . unknown) (unknown) (no (unknown) (unknown) Details: (units (unkno wn) date) unknown) (unknown) (no (unknown) (unknown) Diverticular (units (u nknown) date) disease (-2020) unknown) (unknown) (no (unknown) (unknown) Documented By: (units (unknown) date) Sivakumar Deleon unknownAsmita RIEVRA 08/15/22 1427 (unknown) (no (unknown) (unknown) Dose Route Admin (units (unknown) date) Location Lot unknown) Number Expiration Date NDC (unknown) (no (unknown) (unknown) Draft (units (unkno wn) date) unknown) (unknown) (no (unknown) (unknown) EOM: EOM intact (units (unknown) date) bilaterally unknown) (unknown) (no (unknown) (unknown) Ears: hearing (units ( unknown) date) grossly normal unknown) bilaterally (unknown) (no (unknown) (unknown) Effort + (units (unkno wn) date) Inspection: unknown) normal respiratory effort and able to speak in complete (unknown) (no (unknown) (unknown) Exam (units (unkno wn) date) unknown) (unknown) (no (unknown) (unknown) Eyes (units (unkno wn) date) unknown) (unknown) (no (unknown) (unknown) Face and sinus: (units (unknown) date) face symmetric unknown) (unknown) (no (unknown) (unknown) Family History (units (unknown) date) (Reviewed unknown) 08/02/22 @ 05:44 by Rafael Mcgee MD) (unknown) (no (unknown) (unknown) Father History (units (unknown) date) of heart disease unknown) (unknown) (no (unknown) (unknown) Fibromyalgia (units (u nknown) date) (-2015) unknown) (unknown) (no (unknown) (unknown) [facility] ([facility] unknown) (unknown) (no (unknown) (unknown) (units (unkno wn) date) unknown) (unknown) (no (unknown) (unknown) General: (units (unkno wn) date) appearance unknown) normal, both eyes and all related structures (unknown) (no (unknown) (unknown) General: (units (unkno wn) date) cooperative, unknown) comfortable and no acute distress (unknown) (no (unknown) (unknown) General: (units (unkno wn) date) deferred unknown) (unknown) (no (unknown) (unknown) Gout (-2016) (units (u nknown) date) unknown) (unknown) (no (unknown) (unknown) Gynecology Visit (units (unknown) date) unknown) (unknown) (no (unknown) (unknown) H/O LEEP (units (unkno wn) date) unknown) (unknown) (no (unknown) (unknown) H/O laparoscopy (units (unknown) date) () unknown) (unknown) (no (unknown) (unknown) HENMT (units (unkno wn) date) unknown) (unknown) (no (unknown) (unknown) HPI (units (unkno wn) date) unknown) (unknown) (no (unknown) (unknown) Head: normal to (units (unknown) date) inspection, unknown) normocephalic and atraumatic (unknown) (no (unknown) (unknown) Height 5 ft 6 in (units (unknown) date) unknown) (unknown) (no (unknown) (unknown) Herpes () (units (unknown) date) unknown) (unknown) (no (unknown) (unknown) History of (units (unk nown) date) unknown) (-08/08/04) (unknown) (no (unknown) (unknown) Human papilloma (units (unknown) date) virus (-2002) unknown) (unknown) (no (unknown) (unknown) Hyperlipidemia (units (unknown) date) unknown) (unknown) (no (unknown) (unknown) Hypertension (units (u nknown) date) unknown) (unknown) (no (unknown) (unknown) IUD Placement (units ( unknown) date) unknown) (unknown) (no (unknown) (unknown) Intake Note: (units (u nknown) date) unknown) (unknown) (no (unknown) (unknown) Intake performed (units (unknown) date) by: Yaneth Oliveira unknown) (unknown) (no (unknown) (unknown) Intake (units (unkno wn) date) unknown) (unknown) (no (unknown) (unknown) Intake- Clincial (units (unknown) date) Staff unknown) (unknown) (no (unknown) (unknown) Irritable bowel (units (unknown) date) syndrome () unknown) (unknown) (no (unknown) (unknown) Is last (units (unkno wn) date) menstrual period unknown) known: No (unknown) (no (unknown) (unknown) Judgment: (units (unkn own) date) judgment good unknown) (unknown) (no (unknown) (unknown) Last Menstural (units (unknown) date) Cycle + Details unknown) (unknown) (no (unknown) (unknown) Left ovarian (units (u nknown) date) cyst () unknown) (unknown) (no (unknown) (unknown) Loc: [facility] (units (unkno wn) date) unknown) (unknown) (no (unknown) (unknown) [id number] (units (unk nown) date) unknown) (unknown) (no (unknown) (unknown) 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 (units (u nknown) date) unknown) (unknown) (no (unknown) (unknown) Medical History (units (unknown) date) (Reviewed unknown) 08/02/22 @ 05:44 by Rafael Mcgee MD) (unknown) (no (unknown) (unknown) Medications (units (un known) date) unknown) (unknown) (no (unknown) (unknown) Mental Status: (units (unknown) date) mental status unknown) grossly normal (unknown) (no (unknown) (unknown) Mental health (units ( unknown) date) problem unknown) (unknown) (no (unknown) (unknown) Migraines (units (unkn own) date) (-2003) unknown) (unknown) (no (unknown) (unknown) Mood: congruent (units (unknown) date) mood unknown) (unknown) (no (unknown) (unknown) Mother Diabetes (units (unknown) date) mellitus unknown) (unknown) (no (unknown) (unknown) Cory comes in (units (unknown) date) today for unknown) insertion of a Mirena IUD due to her presumptive (unknown) (no (unknown) (unknown) Neck (units (unkno wn) date) unknown) (unknown) (no (unknown) (unknown) Neck: normal (units (u nknown) date) visual inspection unknown) (unknown) (no (unknown) (unknown) No Known Drug (units ( unknown) date) Allergies Allergy unknown) (Verified 08/15/22 14:43) (unknown) (no (unknown) (unknown) Nutritional (units (un known) date) Appearance: unknown) average body habitus (unknown) (no (unknown) (unknown) Office Meds (units (un known) date) unknown) (unknown) (no (unknown) (unknown) Orders (units (unkno wn) date) unknown) (unknown) (no (unknown) (unknown) Orders: (units (unkno wn) date) unknown) (unknown) (no (unknown) (unknown) Orientation: (units (u nknown) date) alert and unknown) oriented x3 (unknown) (no (unknown) (unknown) PFSH (units (unkno wn) date) unknown) (unknown) (no (unknown) (unknown) Painful (units (unkno wn) date) menstrual periods unknown) (unknown) (no (unknown) (unknown) Patient: (units (unkno wn) date) Cory Osborne unknown) B MR#: (unknown) (no (unknown) (unknown) Performing (units (unk nown) date) Provider: Sivakumar unknown) Barrington Deleon MD (unknown) (no (unknown) (unknown) Position Sitting (units (unknown) date) unknown) (unknown) (no (unknown) (unknown) Problem-specific (units (unknown) date) ROS positives unknown) included with the HPI (unknown) (no (unknown) (unknown) Psych (units (unkno wn) date) unknown) (unknown) (no (unknown) (unknown) ROS Narrative (units ( unknown) date) unknown) (unknown) (no (unknown) (unknown) ROS Narrative: (units (unknown) date) unknown) (unknown) (no (unknown) (unknown) ROS (units (unkno wn) date) unknown) (unknown) (no (unknown) (unknown) Reason For Visit (units (unknown) date) unknown) (unknown) (no (unknown) (unknown) Resp (units (unkno wn) date) unknown) (unknown) (no (unknown) (unknown) Sclera: sclerae (units (unknown) date) normal unknown) (unknown) (no (unknown) (unknown) Severe obesity (units (unknown) date) (BMI >= 40) unknown) (unknown) (no (unknown) (unknown) Shortness of (units (u nknown) date) breath unknown) (unknown) (no (unknown) (unknown) Signed By: (units (unk nown) date) unknown) (unknown) (no (unknown) (unknown) Sleep apnea (units (un known) date) () unknown) (unknown) (no (unknown) (unknown) Smoking Status: (units (unknown) date) Former smoker unknown) (unknown) (no (unknown) (unknown) Social History (units (unknown) date) unknown) (unknown) (no (unknown) (unknown) Speech and (units (unk nown) date) Movement: speech unknown) and movement normal (unknown) (no (unknown) (unknown) Status post (units (un known) date) right foot unknown) surgery (-2000) (unknown) (no (unknown) (unknown) Surgical History (units (unknown) date) (Reviewed unknown) 08/02/22 @ 05:44 by Rafael Mcgee MD) (unknown) (no (unknown) (unknown) This note may (units ( unknown) date) have been all or unknown) partially generated using voice recognition (unknown) (no (unknown) (unknown) Thought Content: (units (unknown) date) normal unknown) (unknown) (no (unknown) (unknown) Thought Process: (units (unknown) date) normal unknown) (unknown) (no (unknown) (unknown) Tobacco + (units (unkn own) date) Substance Use unknown) (unknown) (no (unknown) (unknown) Tobacco Status (units (unknown) date) unknown) (unknown) (no (unknown) (unknown) Visit Reasons: (units (unknown) date) IUD placement *no unknown) auth reqd (unknown) (no (unknown) (unknown) Vitals (units (unkno wn) date) unknown) (unknown) (no (unknown) (unknown) Weight 286 lb (units ( unknown) date) unknown) (unknown) (no (unknown) (unknown) [History (units (unkno wn) date) Confirmed unknown) 08/15/22] (unknown) (no (unknown) (unknown) buprenorphine 8 (units (unknown) date) mg-naloxone 2 mg unknown) sublingual film (Suboxone) 1 film sublingual (unknown) (no (unknown) (unknown) bupropion HCl (units ( unknown) date) 300 mg 24 hr unknown) tablet, extended release 300 mg PO DAILY 01/03/22 (unknown) (no (unknown) (unknown) 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 unknown) Patient has had a Mirena previously and tolerated it (unknown) (no (unknown) (unknown) duloxetine 30 mg (units (unknown) date) capsule,delayed unknown) release (Cymbalta) 30 mg PO BID 08/02/22 (unknown) (no (unknown) (unknown) have occurred. (units (unknown) date) If there are any unknown) questions, please contact the Medical Records (unknown) (no (unknown) (unknown) her request. (units (u nknown) date) unknown) (unknown) (no (unknown) (unknown) may occur. (units (unk nown) date) Occasional unknown) wrong-word or 'sound-alike' substitutions may have (unknown) (no (unknown) (unknown) occurred due to (units (unknown) date) the inherent unknown) limitations of voice recognition software. Please (unknown) (no (unknown) (unknown) oxycodone 5 mg (units (unknown) date) tablet 5 mg PO unknown) ONCE pain #1 tab 07/31/22 [Rx Confirmed 08/15/22] (unknown) (no (unknown) (unknown) oxycodone 5 mg (units (unknown) date) tablet 5 mg PO unknown) Q12H PRN pain, severe #5 tabs 06/07/22 [Rx (unknown) (no (unknown) (unknown) read the note (units ( unknown) date) carefully and unknown) recognize, using context, where these substitutions (unknown) (no (unknown) (unknown) sentences (units (unkn own) date) unknown) (unknown) (no (unknown) (unknown) software. 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 Patient (units ( unknown) date) also has a unknown) Nexplanon in-situ in that to will be removed today at Result panel 52 (unknown) (no (unknown) (unknown) (no value) (units (unk nown) date) unknown) (unknown) (no (unknown) (unknown) 08/15/22 (units (unkno wn) date) unknown) (unknown) (no (unknown) (unknown) 08/15/22] (units (unkn own) date) unknown) (unknown) (no (unknown) (unknown) 14:43 (units (unkno wn) date) unknown) (unknown) (no (unknown) (unknown) 150 mg IM Left (units (unknown) date) Glute [id number] unknown) 04/06/24 [id number] [facility] (unknown) (no (unknown) (unknown) ADHD (-1998) (units (u nknown) date) unknown) (unknown) (no (unknown) (unknown) Abdominal pain (units (unknown) date) unknown) (unknown) (no (unknown) (unknown) Abnormal Pap (units (u nknown) date) smear of cervix unknown) (unknown) (no (unknown) (unknown) Abnormal chest (units (unknown) date) xray () unknown) (unknown) (no (unknown) (unknown) Administered by: (units (unknown) date) Yaneth Oliveira MA unknown) on 08/15/22 17:00 (unknown) (no (unknown) (unknown) Affect: normal (units (unknown) date) affect unknown) (unknown) (no (unknown) (unknown) Age/Sex: 36 / F (units (unknown) date) Date of Service: unknown) (unknown) (no (unknown) (unknown) Allergies (units (unkn own) date) unknown) (unknown) (no (unknown) (unknown) [place] (units ( unknown) date) [id number] unknown) (unknown) (no (unknown) (unknown) Anesthesia (units (unk nown) date) unknown) (unknown) (no (unknown) (unknown) Anxiety (units (unkno wn) date) unknown) (unknown) (no (unknown) (unknown) Appearance: (units (un known) date) grossly normal unknown) (unknown) (no (unknown) (unknown) Assessment + (units (u nknown) date) Plan unknown) (unknown) (no (unknown) (unknown) Asthma (units (unkno wn) date) unknown) (unknown) (no (unknown) (unknown) Attending Dr: (units ( unknown) date) Sivakumar Deleon unknown) (unknown) (no (unknown) (unknown) Attitude: (units (unkn own) date) cooperative unknown) (unknown) (no (unknown) (unknown) BID 01/03/22 (units (u nknown) date) [History unknown) Confirmed 08/15/22] (unknown) (no (unknown) (unknown) BMI 46.1 (units (unkno wn) date) unknown) (unknown) (no (unknown) (unknown) BP 116/72 (units (unkn own) date) unknown) (unknown) (no (unknown) (unknown) Bimanual Exam- (units (unknown) date) Adnexa, other: unknown) normal adnexae, no masses and non-tender (unknown) (no (unknown) (unknown) Bimanual Exam- (units ( unknown) date) Vagina + Uterus: unknown) normal bimanual exam, uterine size normal, boggy (unknown) (no (unknown) (unknown) Blood Pressure (units (unknown) date) Location Rt unknown) brachial (unknown) (no (unknown) (unknown) Carpal tunnel (units ( unknown) date) syndrome () unknown) (unknown) (no (unknown) (unknown) Cervical cancer (units (unknown) date) () unknown) (unknown) (no (unknown) (unknown) Wshsmip-Sgcmo-Pz (units (unknown) date) oth disease unknown) (unknown) (no (unknown) (unknown) Chief Complaint (units (unknown) date) unknown) (unknown) (no (unknown) (unknown) Chief Complaint: (units (unknown) date) IUD placement, unknown) Nexplanon removal (unknown) (no (unknown) (unknown) Chlamydia (units (unkn own) date) () unknown) (unknown) (no (unknown) (unknown) Chronic insomnia (units (unknown) date) unknown) (unknown) (no (unknown) (unknown) Chronic low back (units (unknown) date) pain () unknown) (unknown) (no (unknown) (unknown) Chronic, (units (unkno wn) date) continuous use of unknown) opioids (unknown) (no (unknown) (unknown) Confirmed (units (unkn own) date) 08/15/22] unknown) (unknown) (no (unknown) (unknown) Conjunctivae: (units ( unknown) date) conjunctivae unknown) normal (unknown) (no (unknown) (unknown) Const (units (unkno wn) date) unknown) (unknown) (no (unknown) (unknown) : 1985 (units (unknown) date) Acct:[id number] unknown) (unknown) (no (unknown) (unknown) Depo-Provera (units (u nknown) date) 150mg Today D25.9 unknown) - Leiomyoma of uterus, unspecified (unknown) (no (unknown) (unknown) Depo-Provera (units (u nknown) date) unknown) (unknown) (no (unknown) (unknown) Depression (units (unk nown) date) unknown) (unknown) (no (unknown) (unknown) Dept at (units (unkno wn) date) . unknown) (unknown) (no (unknown) (unknown) Details: (units (unkno wn) date) unknown) (unknown) (no (unknown) (unknown) Diverticular (units (u nknown) date) disease (-2020) unknown) (unknown) (no (unknown) (unknown) Documented By: (units (unknown) date) Sivakumar Deleon unknownAsmita RIVERA 08/15/22 1427 (unknown) (no (unknown) (unknown) Dose Route Admin (units (unknown) date) Location Lot unknown) Number Expiration Date NDC (unknown) (no (unknown) (unknown) Draft (units (unkno wn) date) unknown) (unknown) (no (unknown) (unknown) EOM: EOM intact (units (unknown) date) bilaterally unknown) (unknown) (no (unknown) (unknown) Ears: hearing (units ( unknown) date) grossly normal unknown) bilaterally (unknown) (no (unknown) (unknown) Effort + (units (unkno wn) date) Inspection: unknown) normal respiratory effort and able to speak in complete (unknown) (no (unknown) (unknown) Exam (units (unkno wn) date) unknown) (unknown) (no (unknown) (unknown) External Female (units (unknown) date) Exam: normal unknown) external appearance and normal appearance of the (unknown) (no (unknown) (unknown) Eyes (units (unkno wn) date) unknown) (unknown) (no (unknown) (unknown) Face and sinus: (units (unknown) date) face symmetric unknown) (unknown) (no (unknown) (unknown) Family History (units (unknown) date) (Reviewed unknown) 08/02/22 @ 05:44 by Rafael Mcgee MD) (unknown) (no (unknown) (unknown) Father History (units (unknown) date) of heart disease unknown) (unknown) (no (unknown) (unknown) Fibromyalgia (units (u nknown) date) (-2016) unknown) (unknown) (no (unknown) (unknown) [facility]) (unknown) (no (unknown) (unknown) (units (unkno wn) date) unknown) (unknown) (no (unknown) (unknown) General: (units (unkno wn) date) appearance unknown) normal, both eyes and all related structures (unknown) (no (unknown) (unknown) General: (units (unkno wn) date) cooperative, unknown) comfortable and no acute distress (unknown) (no (unknown) (unknown) Gout (-2016) (units (u nknown) date) unknown) (unknown) (no (unknown) (unknown) Gynecology Visit (units (unknown) date) unknown) (unknown) (no (unknown) (unknown) H/O LEEP (units (unkno wn) date) unknown) (unknown) (no (unknown) (unknown) H/O laparoscopy (units (unknown) date) () unknown) (unknown) (no (unknown) (unknown) HENMT (units (unkno wn) date) unknown) (unknown) (no (unknown) (unknown) HPI (units (unkno wn) date) unknown) (unknown) (no (unknown) (unknown) Head: normal to (units (unknown) date) inspection, unknown) normocephalic and atraumatic (unknown) (no (unknown) (unknown) Height 5 ft 6 in (units (unknown) date) unknown) (unknown) (no (unknown) (unknown) Herpes () (units (unknown) date) unknown) (unknown) (no (unknown) (unknown) History of (units (unk nown) date) unknown) (-08/08/04) (unknown) (no (unknown) (unknown) Human papilloma (units (unknown) date) virus (-2003) unknown) (unknown) (no (unknown) (unknown) Hyperlipidemia (units (unknown) date) unknown) (unknown) (no (unknown) (unknown) Hypertension (units (u nknown) date) unknown) (unknown) (no (unknown) (unknown) IUD Placement (units ( unknown) date) unknown) (unknown) (no (unknown) (unknown) Intake Note: (units (u nknown) date) unknown) (unknown) (no (unknown) (unknown) Intake performed (units (unknown) date) by: Yaneth Oliveira unknown) (unknown) (no (unknown) (unknown) Intake (units (unkno wn) date) unknown) (unknown) (no (unknown) (unknown) Intake- Clincial (units (unknown) date) Staff unknown) (unknown) (no (unknown) (unknown) Irritable bowel (units (unknown) date) syndrome () unknown) (unknown) (no (unknown) (unknown) Is last (units (unkno wn) date) menstrual period unknown) known: No (unknown) (no (unknown) (unknown) Judgment: (units (unkn own) date) judgment good unknown) (unknown) (no (unknown) (unknown) Last Menstural (units (unknown) date) Cycle + Details unknown) (unknown) (no (unknown) (unknown) Left ovarian (units (u nknown) date) cyst () unknown) (unknown) (no (unknown) (unknown) Loc: [facility] (units (unkno wn) date) unknown) (unknown) (no (unknown) (unknown) [id number] (units (unk nown) date) unknown) (unknown) (no (unknown) (unknown) 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 (units (u nknown) date) unknown) (unknown) (no (unknown) (unknown) Medical History (units (unknown) date) (Reviewed unknown) 08/02/22 @ 05:44 by Rafael Mcgee MD) (unknown) (no (unknown) (unknown) Medications (units (un known) date) unknown) (unknown) (no (unknown) (unknown) Mental Status: (units (unknown) date) mental status unknown) grossly normal (unknown) (no (unknown) (unknown) Mental health (units ( unknown) date) problem unknown) (unknown) (no (unknown) (unknown) Migraines (units (unkn own) date) (-2003) unknown) (unknown) (no (unknown) (unknown) Mood: congruent (units (unknown) date) mood unknown) (unknown) (no (unknown) (unknown) Mother Diabetes (units (unknown) date) mellitus unknown) (unknown) (no (unknown) (unknown) Cory comes in (units (unknown) date) today for unknown) insertion of a Mirena IUD due to her presumptive (unknown) (no (unknown) (unknown) Neck (units (unkno wn) date) unknown) (unknown) (no (unknown) (unknown) Neck: normal (units (u nknown) date) visual inspection unknown) (unknown) (no (unknown) (unknown) No Known Drug (units ( unknown) date) Allergies Allergy unknown) (Verified 08/15/22 14:43) (unknown) (no (unknown) (unknown) Nutritional (units (un known) date) Appearance: unknown) average body habitus (unknown) (no (unknown) (unknown) OB/External + (units ( unknown) date) Speculum: unknown) cervical os open (unknown) (no (unknown) (unknown) Office Meds (units (un known) date) unknown) (unknown) (no (unknown) (unknown) Orders (units (unkno wn) date) unknown) (unknown) (no (unknown) (unknown) Orders: (units (unkno wn) date) unknown) (unknown) (no (unknown) (unknown) Orientation: (units (u nknown) date) alert and unknown) oriented x3 (unknown) (no (unknown) (unknown) PFSH (units (unkno wn) date) unknown) (unknown) (no (unknown) (unknown) Painful (units (unkno wn) date) menstrual periods unknown) (unknown) (no (unknown) (unknown) Patient: (units (unkno wn) date) Cory Osborne unknown) B MR#: (unknown) (no (unknown) (unknown) Performing (units (unk nown) date) Provider: Sivakumar unknown) Barrington Deleon MD (unknown) (no (unknown) (unknown) Position Sitting (units (unknown) date) unknown) (unknown) (no (unknown) (unknown) Problem-specific (units (unknown) date) ROS positives unknown) included with the HPI (unknown) (no (unknown) (unknown) Psych (units (unkno wn) date) unknown) (unknown) (no (unknown) (unknown) ROS Narrative (units ( unknown) date) unknown) (unknown) (no (unknown) (unknown) ROS Narrative: (units (unknown) date) unknown) (unknown) (no (unknown) (unknown) ROS (units (unkno wn) date) unknown) (unknown) (no (unknown) (unknown) Reason For Visit (units (unknown) date) unknown) (unknown) (no (unknown) (unknown) Resp (units (unkno wn) date) unknown) (unknown) (no (unknown) (unknown) Sclera: sclerae (units (unknown) date) normal unknown) (unknown) (no (unknown) (unknown) Severe obesity (units (unknown) date) (BMI >= 40) unknown) (unknown) (no (unknown) (unknown) Shortness of (units (u nknown) date) breath unknown) (unknown) (no (unknown) (unknown) Signed By: (units (unk nown) date) unknown) (unknown) (no (unknown) (unknown) Sleep apnea (units (un known) date) () unknown) (unknown) (no (unknown) (unknown) Smoking Status: (units (unknown) date) Former smoker unknown) (unknown) (no (unknown) (unknown) Social History (units (unknown) date) unknown) (unknown) (no (unknown) (unknown) Speculum Exam - (units (unknown) date) Cervix: normal unknown) appearance of the cervix, cervical os open and (unknown) (no (unknown) (unknown) Speculum Exam - (units (unknown) date) Vagina: normal unknown) appearance of the vagina and normal vaginal (unknown) (no (unknown) (unknown) Speculum Exam: (units (unknown) date) cervical os open unknown) (unknown) (no (unknown) (unknown) Speech and (units (unk nown) date) Movement: speech unknown) and movement normal (unknown) (no (unknown) (unknown) Status post (units (un known) date) right foot unknown) surgery (-2000) (unknown) (no (unknown) (unknown) Surgical History (units (unknown) date) (Reviewed unknown) 08/02/22 @ 05:44 by Rafael Mcgee MD) (unknown) (no (unknown) (unknown) This note may (units ( unknown) date) have been all or unknown) partially generated using voice recognition (unknown) (no (unknown) (unknown) Thought Content: (units (unknown) date) normal unknown) (unknown) (no (unknown) (unknown) Thought Process: (units (unknown) date) normal unknown) (unknown) (no (unknown) (unknown) Tobacco + (units (unkn own) date) Substance Use unknown) (unknown) (no (unknown) (unknown) Tobacco Status (units (unknown) date) unknown) (unknown) (no (unknown) (unknown) Urethra: normal (units (unknown) date) appearance of the unknown) urethra (unknown) (no (unknown) (unknown) Visit Reasons: (units (unknown) date) IUD placement *no unknown) auth reqd (unknown) (no (unknown) (unknown) Vitals (units (unkno wn) date) unknown) (unknown) (no (unknown) (unknown) Weight 286 lb (units ( unknown) date) unknown) (unknown) (no (unknown) (unknown) [History (units (unkno wn) date) Confirmed unknown) 08/15/22] (unknown) (no (unknown) (unknown) and displaced (units ( unknown) date) retroverted unknown) (unknown) (no (unknown) (unknown) buprenorphine 8 (units (unknown) date) mg-naloxone 2 mg unknown) sublingual film (Suboxone) 1 film sublingual (unknown) (no (unknown) (unknown) bupropion HCl (units ( unknown) date) 300 mg 24 hr unknown) tablet, extended release 300 mg PO DAILY 01/03/22 (unknown) (no (unknown) (unknown) 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 unknown) Patient has had a Mirena previously and tolerated it (unknown) (no (unknown) (unknown) discharge (units (unkn own) date) unknown) (unknown) (no (unknown) (unknown) duloxetine 30 mg (units (unknown) date) capsule,delayed unknown) release (Cymbalta) 30 mg PO BID 08/02/22 (unknown) (no (unknown) (unknown) have occurred. (units (unknown) date) If there are any unknown) questions, please contact the Medical Records (unknown) (no (unknown) (unknown) her request. (units (u nknown) date) unknown) (unknown) (no (unknown) (unknown) may occur. (units (unk nown) date) Occasional unknown) wrong-word or 'sound-alike' substitutions may have (unknown) (no (unknown) (unknown) occurred due to (units (unknown) date) the inherent unknown) limitations of voice recognition software. Please (unknown) (no (unknown) (unknown) other (Stenotic (units (unknown) date) endocervical unknown) canal) (unknown) (no (unknown) (unknown) oxycodone 5 mg (units (unknown) date) tablet 5 mg PO unknown) ONCE pain #1 tab 07/31/22 [Rx Confirmed 08/15/22] (unknown) (no (unknown) (unknown) oxycodone 5 mg (units (unknown) date) tablet 5 mg PO unknown) Q12H PRN pain, severe #5 tabs 06/07/22 [Rx (unknown) (no (unknown) (unknown) read the note (units ( unknown) date) carefully and unknown) recognize, using context, where these substitutions (unknown) (no (unknown) (unknown) sentences (units (unkn own) date) unknown) (unknown) (no (unknown) (unknown) software. 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 Patient (units ( unknown) date) also has a unknown) Nexplanon in-situ in that to will be removed today at Result panel 53 (unknown) (no (unknown) (unknown) (no value) (units (unk nown) date) unknown) (unknown) (no (unknown) (unknown) (1) Adenomyosis (units (unknown) date) of uterus: unknown) (unknown) (no (unknown) (unknown) (2) Cervical (units (u nknown) date) stenosis (uterine unknown) cervix): (unknown) (no (unknown) (unknown) 08/15/22 1726 (units ( unknown) date) unknown) (unknown) (no (unknown) (unknown) 08/15/22 (units (unkno wn) date) unknown) (unknown) (no (unknown) (unknown) 08/15/22] (units (unkn own) date) unknown) (unknown) (no (unknown) (unknown) 14:43 (units (unkno wn) date) unknown) (unknown) (no (unknown) (unknown) 150 mg IM Left (units (unknown) date) Glute [id number] unknown) 04/06/24 [id number] [facility] (unknown) (no (unknown) (unknown) ADHD (-1998) (units (u nknown) date) unknown) (unknown) (no (unknown) (unknown) Abdominal pain (units (unknown) date) unknown) (unknown) (no (unknown) (unknown) Abnormal Pap (units (u nknown) date) smear of cervix unknown) (unknown) (no (unknown) (unknown) Abnormal chest (units (unknown) date) xray (-2014) unknown) (unknown) (no (unknown) (unknown) Administered by: (units (unknown) date) Yaneth Oliveira MA unknown) on 08/15/22 17:00 (unknown) (no (unknown) (unknown) Affect: normal (units (unknown) date) affect unknown) (unknown) (no (unknown) (unknown) After discussing (units (unknown) date) options with the unknown) patient, will proceed to IUD insertion in the (unknown) (no (unknown) (unknown) Age/Sex: 36 / F (units (unknown) date) Date of Service: unknown) (unknown) (no (unknown) (unknown) Allergies (units (unkn own) date) unknown) (unknown) (no (unknown) (unknown) [place], [place] (units ( unknown) date) [id number] unknown) (unknown) (no (unknown) (unknown) Anesthesia (units (unk nown) date) unknown) (unknown) (no (unknown) (unknown) Anxiety (units (unkno wn) date) unknown) (unknown) (no (unknown) (unknown) Appearance: (units (un known) date) grossly normal unknown) (unknown) (no (unknown) (unknown) Assessment + (units (u nknown) date) Plan unknown) (unknown) (no (unknown) (unknown) Asthma (units (unkno wn) date) unknown) (unknown) (no (unknown) (unknown) Attending Dr: (units ( unknown) date) Sivakumar Deleon unknown) (unknown) (no (unknown) (unknown) Attitude: (units (unkn own) date) cooperative unknown) (unknown) (no (unknown) (unknown) BID 01/03/22 (units (u nknown) date) [History unknown) Confirmed 08/15/22] (unknown) (no (unknown) (unknown) BMI 46.1 (units (unkno wn) date) unknown) (unknown) (no (unknown) (unknown) BP 116/72 (units (unkn own) date) unknown) (unknown) (no (unknown) (unknown) Bimanual Exam- (units (unknown) date) Adnexa, other: unknown) normal adnexae, no masses and non-tender (unknown) (no (unknown) (unknown) Bimanual Exam- (units ( unknown) date) Vagina + Uterus: unknown) normal bimanual exam, uterine size normal, boggy (unknown) (no (unknown) (unknown) Blood Pressure (units (unknown) date) Location Rt unknown) brachial (unknown) (no (unknown) (unknown) Carpal tunnel (units ( unknown) date) syndrome () unknown) (unknown) (no (unknown) (unknown) Cervical cancer (units (unknown) date) (-2002) unknown) (unknown) (no (unknown) (unknown) Cervix cleaned (units (unknown) date) with Betadine: unknown) Yes (unknown) (no (unknown) (unknown) [id number] (units (unknown) date) oth disease unknown) (unknown) (no (unknown) (unknown) Chief Complaint (units (unknown) date) unknown) (unknown) (no (unknown) (unknown) Chief Complaint: (units (unknown) date) IUD placement, unknown) Nexplanon removal (unknown) (no (unknown) (unknown) Chlamydia (units (unkn own) date) () unknown) (unknown) (no (unknown) (unknown) Chronic insomnia (units (unknown) date) unknown) (unknown) (no (unknown) (unknown) Chronic low back (units (unknown) date) pain () unknown) (unknown) (no (unknown) (unknown) Chronic, (units (unkno wn) date) continuous use of unknown) opioids (unknown) (no (unknown) (unknown) Confirmed (units (unkn own) date) 08/15/22] unknown) (unknown) (no (unknown) (unknown) Conjunctivae: (units ( unknown) date) conjunctivae unknown) normal (unknown) (no (unknown) (unknown) Consent Form (units (u nknown) date) Signed: Yes unknown) (unknown) (no (unknown) (unknown) Consent signed: (units (unknown) date) Yes unknown) (unknown) (no (unknown) (unknown) Const (units (unkno wn) date) unknown) (unknown) (no (unknown) (unknown) Counseling and (units (unknown) date) educating the unknown) patient/family/ca regiver: 5 (unknown) (no (unknown) (unknown) Culture for (units (un known) date) GC/CT obtained: unknown) No (unknown) (no (unknown) (unknown) : 1985 (units (unknown) date) Acct:[id number] unknown) (unknown) (no (unknown) (unknown) Depo-Provera (units (u nknown) date) 150mg Today D25.9 unknown) - Leiomyoma of uterus, unspecified (unknown) (no (unknown) (unknown) Depo-Provera (units (u nknown) date) unknown) (unknown) (no (unknown) (unknown) Depression (units (unk nown) date) unknown) (unknown) (no (unknown) (unknown) Dept at (units (unkno wn) date) . unknown) (unknown) (no (unknown) (unknown) Details: (units (unkno wn) date) unknown) (unknown) (no (unknown) (unknown) Dilation Cervix: (units (unknown) date) No unknown) (unknown) (no (unknown) (unknown) Diverticular (units (u nknown) date) disease (-2020) unknown) (unknown) (no (unknown) (unknown) Documented By: (units (unknown) date) Sivakumar Deleon unknownAsmita RIVERA 08/15/22 1427 (unknown) (no (unknown) (unknown) Documenting (units (un known) date) clinical unknown) information in EHR/Medical record: 5 (unknown) (no (unknown) (unknown) Dose Route Admin (units (unknown) date) Location Lot unknown) Number Expiration Date NDC (unknown) (no (unknown) (unknown) EOM: EOM intact (units (unknown) date) bilaterally unknown) (unknown) (no (unknown) (unknown) Ears: hearing (units ( unknown) date) grossly normal unknown) bilaterally (unknown) (no (unknown) (unknown) Effort + (units (unkno wn) date) Inspection: unknown) normal respiratory effort and able to speak in complete (unknown) (no (unknown) (unknown) Exam (units (unkno wn) date) unknown) (unknown) (no (unknown) (unknown) Explained (units (unkn own) date) Risks/Benefits/Al unknown) ternatives: Yes (unknown) (no (unknown) (unknown) External Female (units (unknown) date) Exam: normal unknown) external appearance and normal appearance of the (unknown) (no (unknown) (unknown) Eyes (units (unkno wn) date) unknown) (unknown) (no (unknown) (unknown) Face and sinus: (units (unknown) date) face symmetric unknown) (unknown) (no (unknown) (unknown) Family History (units (unknown) date) (Reviewed unknown) 08/02/22 @ 05:44 by Rafael Mcgee MD) (unknown) (no (unknown) (unknown) Father History (units (unknown) date) of heart disease unknown) (unknown) (no (unknown) (unknown) Fibromyalgia (units (u nknown) date) (-2016) unknown) (unknown) (no (unknown) (unknown) [facility] unknown) (unknown) (no (unknown) (unknown) Following (units (unkn own) date) informed consent, unknown) the patient was placed in modified dorsal lithotomy (unknown) (no (unknown) (unknown) (units (unkno wn) date) unknown) (unknown) (no (unknown) (unknown) General: (units (unkno wn) date) appearance unknown) normal, both eyes and all related structures (unknown) (no (unknown) (unknown) General: (units (unkno wn) date) cooperative, unknown) comfortable and no acute distress (unknown) (no (unknown) (unknown) Gout () (units (u nknown) date) unknown) (unknown) (no (unknown) (unknown) Gynecology Visit (units (unknown) date) unknown) (unknown) (no (unknown) (unknown) H/O LEEP (units (unkno wn) date) unknown) (unknown) (no (unknown) (unknown) H/O laparoscopy (units (unknown) date) () unknown) (unknown) (no (unknown) (unknown) HENMT (units (unkno wn) date) unknown) (unknown) (no (unknown) (unknown) HPI (units (unkno wn) date) unknown) (unknown) (no (unknown) (unknown) Head: normal to (units (unknown) date) inspection, unknown) normocephalic and atraumatic (unknown) (no (unknown) (unknown) Height 5 ft 6 in (units (unknown) date) unknown) (unknown) (no (unknown) (unknown) Herpes () (units (unknown) date) unknown) (unknown) (no (unknown) (unknown) History of (units (unk nown) date) unknown) (-08/08/04) (unknown) (no (unknown) (unknown) Human papilloma (units (unknown) date) virus (-2002) unknown) (unknown) (no (unknown) (unknown) Hyperlipidemia (units (unknown) date) unknown) (unknown) (no (unknown) (unknown) Hypertension (units (u nknown) date) unknown) (unknown) (no (unknown) (unknown) IUD INSERTION (units ( unknown) date) PROCEDURE NOTE unknown) (unknown) (no (unknown) (unknown) IUD Insert: No (units (unknown) date) unknown) (unknown) (no (unknown) (unknown) IUD Insertion (units ( unknown) date) Notes: unknown) (unknown) (no (unknown) (unknown) IUD Placement (units ( unknown) date) unknown) (unknown) (no (unknown) (unknown) IUD- Insertion (units (unknown) date) unknown) (unknown) (no (unknown) (unknown) In the interim, (units (unknown) date) patient unknown) administered Depo-Provera 150 mg IM for contraception (unknown) (no (unknown) (unknown) Informed consent (units (unknown) date) given: Yes unknown) (unknown) (no (unknown) (unknown) Intake Note: (units (u nknown) date) unknown) (unknown) (no (unknown) (unknown) Intake performed (units (unknown) date) by: Yaneth Oliveira unknown) (unknown) (no (unknown) (unknown) Intake (units (unkno wn) date) unknown) (unknown) (no (unknown) (unknown) Intake- Clincial (units (unknown) date) Staff unknown) (unknown) (no (unknown) (unknown) Irritable bowel (units (unknown) date) syndrome () unknown) (unknown) (no (unknown) (unknown) Is last (units (unkno wn) date) menstrual period unknown) known: No (unknown) (no (unknown) (unknown) Judgment: (units (unkn own) date) judgment good unknown) (unknown) (no (unknown) (unknown) Last Menstural (units (unknown) date) Cycle + Details unknown) (unknown) (no (unknown) (unknown) Left ovarian (units (u nknown) date) cyst () unknown) (unknown) (no (unknown) (unknown) Loc: [facility] (units (unkno wn) date) unknown) (unknown) (no (unknown) (unknown) [id number] (units (unk nown) date) unknown) (unknown) (no (unknown) (unknown) 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 (units (u nknown) date) unknown) (unknown) (no (unknown) (unknown) Medical History (units (unknown) date) (Reviewed unknown) 08/02/22 @ 05:44 by Rafael Mcgee MD) (unknown) (no (unknown) (unknown) Medications (units (un known) date) unknown) (unknown) (no (unknown) (unknown) Mental Status: (units (unknown) date) mental status unknown) grossly normal (unknown) (no (unknown) (unknown) Mental health (units ( unknown) date) problem unknown) (unknown) (no (unknown) (unknown) Migraines (units (unkn own) date) (-2003) unknown) (unknown) (no (unknown) (unknown) Mood: congruent (units (unknown) date) mood unknown) (unknown) (no (unknown) (unknown) Mother Diabetes (units (unknown) date) mellitus unknown) (unknown) (no (unknown) (unknown) NEXPLANON (units (unkn own) date) REMOVAL PROCEDURE unknown) NOTE (unknown) (no (unknown) (unknown) Cory comes in (units (unknown) date) today for unknown) insertion of a Mirena IUD due to her presumptive (unknown) (no (unknown) (unknown) Neck (units (unkno wn) date) unknown) (unknown) (no (unknown) (unknown) Neck: normal (units (u nknown) date) visual inspection unknown) (unknown) (no (unknown) (unknown) No Known Drug (units ( unknown) date) Allergies Allergy unknown) (Verified 08/15/22 14:43) (unknown) (no (unknown) (unknown) Nutritional (units (un known) date) Appearance: unknown) average body habitus (unknown) (no (unknown) (unknown) OB/External + (units ( unknown) date) Speculum: unknown) cervical os open (unknown) (no (unknown) (unknown) Obtaining and/or (units (unknown) date) reviewing unknown) separately obtained history: 5 (unknown) (no (unknown) (unknown) Office Meds (units (un known) date) unknown) (unknown) (no (unknown) (unknown) Office Procedure (units (unknown) date) unknown) (unknown) (no (unknown) (unknown) Office (units (unkno wn) date) Procedures unknown) (unknown) (no (unknown) (unknown) Ordering (units (unkno wn) date) medications, unknown) tests, or procedures: 5 (unknown) (no (unknown) (unknown) Orders (units (unkno wn) date) unknown) (unknown) (no (unknown) (unknown) Orders: (units (unkno wn) date) unknown) (unknown) (no (unknown) (unknown) Orientation: (units (u nknown) date) alert and unknown) oriented x3 (unknown) (no (unknown) (unknown) PFSH (units (unkno wn) date) unknown) (unknown) (no (unknown) (unknown) Painful (units (unkno wn) date) menstrual periods unknown) (unknown) (no (unknown) (unknown) Paracervical (units (u nknown) date) Block: No unknown) (unknown) (no (unknown) (unknown) Patient (units (unkno wn) date) Tolerated unknown) Procedure: With difficulty (unknown) (no (unknown) (unknown) Patient: (units (unkno wn) date) Clemente,Cory unknown) B MR#: (unknown) (no (unknown) (unknown) Performing (units (unk nown) date) Provider: Sivakumar unknown) Barrington Deleon MD (unknown) (no (unknown) (unknown) Performing a (units (u nknown) date) medically unknown) appropriate exam and/or evaluation: 5 (unknown) (no (unknown) (unknown) Plan (units (unkno wn) date) unknown) (unknown) (no (unknown) (unknown) Position Sitting (units (unknown) date) unknown) (unknown) (no (unknown) (unknown) Test (units (unknown) date) Performed: No unknown) (unknown) (no (unknown) (unknown) Preparing to see (units (unknown) date) the patient, unknown) i.e., chart review, review of tests: 5 (unknown) (no (unknown) (unknown) Problem-specific (units (unknown) date) ROS positives unknown) included with the HPI (unknown) (no (unknown) (unknown) Procedure Notes: (units (unknown) date) unknown) (unknown) (no (unknown) (unknown) Psych (units (unkno wn) date) unknown) (unknown) (no (unknown) (unknown) ROS Narrative (units ( unknown) date) unknown) (unknown) (no (unknown) (unknown) ROS Narrative: (units (unknown) date) unknown) (unknown) (no (unknown) (unknown) ROS (units (unkno wn) date) unknown) (unknown) (no (unknown) (unknown) Reason For Visit (units (unknown) date) unknown) (unknown) (no (unknown) (unknown) Resp (units (unkno wn) date) unknown) (unknown) (no (unknown) (unknown) Sclera: sclerae (units (unknown) date) normal unknown) (unknown) (no (unknown) (unknown) Severe obesity (units (unknown) date) (BMI >= 40) unknown) (unknown) (no (unknown) (unknown) Shortness of (units (u nknown) date) breath unknown) (unknown) (no (unknown) (unknown) Signed By: (units (unk nown) date) <Electronically unknown) signed by Sivakumar Deleon MD> (unknown) (no (unknown) (unknown) Signed (units (unkno wn) date) unknown) (unknown) (no (unknown) (unknown) Sleep apnea (units (un known) date) () unknown) (unknown) (no (unknown) (unknown) Smoking Status: (units (unknown) date) Former smoker unknown) (unknown) (no (unknown) (unknown) Social History (units (unknown) date) unknown) (unknown) (no (unknown) (unknown) Speculum Exam - (units (unknown) date) Cervix: normal unknown) appearance of the cervix, cervical os open and (unknown) (no (unknown) (unknown) Speculum Exam - (units (unknown) date) Vagina: normal unknown) appearance of the vagina and normal vaginal (unknown) (no (unknown) (unknown) Speculum Exam: (units (unknown) date) cervical os open unknown) (unknown) (no (unknown) (unknown) Speculum placed: (units (unknown) date) Yes unknown) (unknown) (no (unknown) (unknown) Speech and (units (unk nown) date) Movement: speech unknown) and movement normal (unknown) (no (unknown) (unknown) Status post (units (un known) date) right foot unknown) surgery (-2000) (unknown) (no (unknown) (unknown) Status: Acute (units ( unknown) date) unknown) (unknown) (no (unknown) (unknown) Surgical History (units (unknown) date) (Reviewed unknown) 08/02/22 @ 05:44 by Rafael Mcgee MD) (unknown) (no (unknown) (unknown) This note may (units ( unknown) date) have been all or unknown) partially generated using voice recognition (unknown) (no (unknown) (unknown) Thought Content: (units (unknown) date) normal unknown) (unknown) (no (unknown) (unknown) Thought Process: (units (unknown) date) normal unknown) (unknown) (no (unknown) (unknown) Time Coding (units (un known) date) Minutes Spent: unknown) (must be on same date of service/appointme nt) (unknown) (no (unknown) (unknown) Time Spent (units (unk nown) date) unknown) (unknown) (no (unknown) (unknown) Tobacco + (units (unkn own) date) Substance Use unknown) (unknown) (no (unknown) (unknown) Tobacco Status (units (unknown) date) unknown) (unknown) (no (unknown) (unknown) Total Time: 30 (units (unknown) date) unknown) (unknown) (no (unknown) (unknown) Unfortunately (units ( unknown) date) the os Finder unknown) could only be passed about 1.5 cm into the (unknown) (no (unknown) (unknown) Urethra: normal (units (unknown) date) appearance of the unknown) urethra (unknown) (no (unknown) (unknown) Visit Reasons: (units (unknown) date) IUD placement *no unknown) auth reqd (unknown) (no (unknown) (unknown) Vitals (units (unkno wn) date) unknown) (unknown) (no (unknown) (unknown) Weight 286 lb (units ( unknown) date) unknown) (unknown) (no (unknown) (unknown) [History (units (unkno wn) date) Confirmed unknown) 08/15/22] (unknown) (no (unknown) (unknown) adhesions around (units (unknown) date) the end of the unknown) capsule, the implant was easily removed through (unknown) (no (unknown) (unknown) and displaced (units ( unknown) date) retroverted unknown) (unknown) (no (unknown) (unknown) and suppression (units (unknown) date) of adenomyosis unknown) until the Mirena IUD can be inserted. (unknown) (no (unknown) (unknown) and the upper (units ( unknown) date) inner left arm unknown) prepped and draped in the usual manner. The (unknown) (no (unknown) (unknown) anesthesia with (units (unknown) date) preoperative unknown) treatment with Cytotec as this is the 2nd (unknown) (no (unknown) (unknown) as to be near (units ( unknown) date) the extraction unknown) site and using blunt dissection to lyse the (unknown) (no (unknown) (unknown) ay occur. (units (unkn own) date) Occasional unknown) wrong-word or 'sound-alike' substitutions may have (unknown) (no (unknown) (unknown) bring the skin (units (unknown) date) edges together. 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 unknown) Patient has had a Mirena previously and tolerated it (unknown) (no (unknown) (unknown) discharge (units (unkn own) date) unknown) (unknown) (no (unknown) (unknown) duloxetine 30 mg (units (unknown) date) capsule,delayed unknown) release (Cymbalta) 30 mg PO BID 08/02/22 (unknown) (no (unknown) (unknown) endocervical (units (u nknown) date) canal at which unknown) point there was no further passage of the Finder. (unknown) (no (unknown) (unknown) endocervical (units (u nknown) date) canal prevented unknown) its introduction. A small metal dilator was then (unknown) (no (unknown) (unknown) extraction site (units (unknown) date) for the palpable unknown) Nexplanon implant was identified and (unknown) (no (unknown) (unknown) favor of (units (unkno wn) date) proceeding to unknown) Mirena insertion in the operating room under general (unknown) (no (unknown) (unknown) following (units (unkn own) date) informed consent, unknown) the patient was placed in dorsal supine position (unknown) (no (unknown) (unknown) have occurred. (units (unknown) date) If there are any unknown) questions, please contact the Medical Records (unknown) (no (unknown) (unknown) her request. (units (u nknown) date) unknown) (unknown) (no (unknown) (unknown) identified. (units (un known) date) Accordingly, the unknown) attempts to insert a Mirena IUD are abandoned in (unknown) (no (unknown) (unknown) infiltrated with (units (unknown) date) 1% plain unknown) lidocaine. A sterile field was created and a small (unknown) (no (unknown) (unknown) insertion. Case (units (unknown) date) request unknown) submitted. (unknown) (no (unknown) (unknown) introduced into (units (unknown) date) the endocervical unknown) canal and despite numerous efforts to gently (unknown) (no (unknown) (unknown) iodine solution (units (unknown) date) and an os Finder unknown) was used to probe the endocervical canal. (unknown) (no (unknown) (unknown) main OR under (units (u nknown) date) general unknown) anesthesia as dilation of the cervix will be necessary and (unknown) (no (unknown) (unknown) occurred due to (units (unknown) date) the inherent unknown) limitations of voice recognition software. Please (unknown) (no (unknown) (unknown) other (Stenotic (units (unknown) date) endocervical unknown) canal) (unknown) (no (unknown) (unknown) oxycodone 5 mg (units (unknown) date) tablet 5 mg PO unknown) ONCE pain #1 tab 07/31/22 [Rx Confirmed 08/15/22] (unknown) (no (unknown) (unknown) oxycodone 5 mg (units (unknown) date) tablet 5 mg PO unknown) Q12H PRN pain, severe #5 tabs 06/07/22 [Rx (unknown) (no (unknown) (unknown) pass the os (units (un known) date) Finder through unknown) the endocervical canal but again stenosis of the (unknown) (no (unknown) (unknown) patient provided (units (unknown) date) with written post unknown) Nexplanon removal instructions. (unknown) (no (unknown) (unknown) patient's (units (unkn own) date) tolerated the unknown) procedure poorly today and would prefer in OR (unknown) (no (unknown) (unknown) position and a (units (unknown) date) speculum inserted unknown) in the vagina. The cervix was painted with (unknown) (no (unknown) (unknown) probe the canal (units (unknown) date) for a passage unknown) into the endometrial cavity, none could be (unknown) (no (unknown) (unknown) read the note (units ( unknown) date) carefully and unknown) recognize, using context, where these substitutions (unknown) (no (unknown) (unknown) sentences (units (unkn own) date) unknown) (unknown) (no (unknown) (unknown) site of the (units (unk nown) date) Nexplanon and a unknown) Steri-Strips was placed across the incision so as to (unknown) (no (unknown) (unknown) skin incision (units ( unknown) date) was made at the unknown) site of extraction. The implant was mobilized so (unknown) (no (unknown) (unknown) software. 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 Pressure was applied to the (unknown) (no (unknown) (unknown) trazodone 50 mg (units (unknown) date) tablet 50 mg PO unknown) BEDTIME PRN sleep 01/03/22 [History Confirmed (unknown) (no (unknown) (unknown) unsuccessful (units (u nknown) date) outpatient unknown) attempt at IUD insertion. (unknown) (no (unknown) (unknown) upon check in pt (units (unknown) date) states that she unknown) does also have a nexplanon in place (unknown) (no (unknown) (unknown) urethra (units (unkno wn) date) unknown) (unknown) (no (unknown) (unknown) well. Patient (units ( unknown) date) also has a unknown) Nexplanon in-situ in that to will be removed today at (unknown) (no (unknown) (unknown) which was very (units (unknown) date) poorly tolerated unknown) by the patient. The another attempt was made to Social History date description facility 2022-06-07 00:00 Never smoked tobacco (finding) [facility] 2022-08-02 00:00 Ex-smoker (finding) [facility] 2022-08-15 00:00 Ex-smoker (finding) [facility] Vital Signs date measurement value units 2022-06-07 00:00 BMI 46.5 kg/m2 2022-06-07 00:00 BP_diastolic 76 mmHg 2022-06-07 00:00 BP_systolic 126 mmHg 2022-06-07 00:00 height_metric 167.64 cm 2022-06-07 00:00 height_standard 66 in 2022-06-07 00:00 weight_metric 130.63 kg 2022-06-07 00:00 weight_standard 287.99 lb 2022-08-02 00:00 BMI 46.5 kg/m2 2022-08-02 00:00 BP_diastolic 75 mmHg 2022-08-02 00:00 BP_systolic 146 mmHg 2022-08-02 00:00 heart_rate 85 /min 2022-08-02 00:00 height_metric 167.64 cm 2022-08-02 00:00 height_standard 66 in 2022-08-02 00:00 o2_saturation 97 % 2022-08-02 00:00 respiration_rate 16 /min 2022-08-02 00:00 weight_metric 130.69 kg 2022-08-02 00:00 weight_standard 288.12 lb 2022-08-15 00:00 BMI 46.1 kg/m2 2022-08-15 00:00 BP_diastolic 72 mmHg 2022-08-15 00:00 BP_systolic 116 mmHg 2022-08-15 00:00 height_metric 167.64 cm 2022-08-15 00:00 height_standard 66 in 2022-08-15 00:00 weight_metric 129.72 kg 2022-08-15 00:00 weight_standard 285.98 lb
[2022-08-27 18:31] LABS: BASOPHILS % (AUTO) 0.6 %; EOSINOPHILS % (AUTO) 1.8 %; HCT - HEMATOCRIT 41.5 % (37.0-47.0); HGB - HEMOGLOBIN 13.9 g/dL (12.0-16.0); LYMPHOCYTES % (AUTO) 56.9 %; MEAN CORPUSCULAR HEMOGLOBIN 29.3 pg (27.0-31.0); MEAN CORPUSCULAR HGB CONC 33.5 g/dL (32.0-36.0); MEAN CORPUSCULAR VOLUME 87.4 fL (81.0-99.0); MEAN PLATELET VOLUME 12.5 fL (7.9-10.8); MONOCYTES % (AUTO) 4.5 %; NEUTROPHILS % (AUTO) 35.9 %; PLT - PLATELET COUNT 205 10^3/uL (130-450); RED BLOOD COUNT 4.75 10^6/uL (4.20-5.40); RED CELL DISTRIBUTION WIDTH 12.3 % (12.0-15.0); WHITE BLOOD COUNT 10.8 x10^3/uL (4.8-10.8)
[2022-08-27 18:34] LABS: ABNORMAL LYMPHS % (MANUAL) 0 %; BAND NEUTROPHILS % (MANUAL) 0 %
[2022-08-27 18:35] LABS: ALBUMIN 4.3 g/dL (3.2-5.5); ALBUMIN/GLOBULIN RATIO 1.3 (1.0-2.2); BILIRUBIN,TOTAL 0.4 mg/dL (0.2-1.0); CALCIUM 10.4 mg/dL (8.5-10.3); CREATININE 0.8 mg/dL (0.4-1.0); TOTAL PROTEIN 7.6 g/dL (6.7-8.2)
[2022-08-27 18:43] LABS: BILIRUBIN,URINE NEGATIVE (NEGATIVE); GLUCOSE, URINE (UA) NEGATIVE (NEGATIVE); KETONES,URINE (UA) NEGATIVE (NEGATIVE); LEUKOCYTE ESTERASE, URINE NEGATIVE (NEGATIVE); NITRITE,URINE NEGATIVE (NEGATIVE); OCCULT BLOOD,URINE NEGATIVE (NEGATIVE); PROTEIN,URINE NEGATIVE (NEGATIVE); UROBILINOGEN,URINE 0.2 (NORMAL) E.U./dL (NORMAL)
[2022-08-27 18:45] LABS: CLARITY,URINE CLEAR (CLEAR); HCG UR QUAL NEGATIVE
[2022-08-27 19:32] LABS: EOSINOPHILS # (MANUAL) 0.2 10^3/uL (0-0.7); LYMPHOCYTES # (MANUAL) 6.8 10^3/uL (1.5-3.5); LYMPHOCYTES % (MANUAL) 48 %; NEUTROPHILS # (MANUAL) 3.8 10^3/uL (1.5-6.6); REACTIVE LYMPHS % (MANUAL) 15 %
[2022-08-27 19:33] LABS: DIFFERENTIAL COMMENT MANUAL DIFFERENTIAL; PLATELET ESTIMATE, MANUAL NORMAL (130-450,000) (NORMAL); PLATELET MORPHOLOGY NORMAL APPEARANCE (NORMAL); RBC MORPHOLOGY (MULTIPLE) NORMAL APPEARANCE (NORMAL)
--- NOTE | 2022-08-27 20:03 | ED Physician Documentation ---
PD HPI ABD PAIN - Stated complaint Stated Complaint: ABD PRESSURE - Chief complaint Chief Complaint: Abd Pain - History obtained from History obtained from: Patient - Additional information Additional information: HPI from patient. Patient c/o abdominal pain which she describes as "pressure" for "a few weeks" (per patient). Nausea but no vomiting. episodic lightheadedness and dysuria. c/o feeling bloated and constipated with hard BM earlier today. PD PAST MEDICAL HISTORY - Past Medical History Cardiovascular: None Respiratory: None Endocrine/Autoimmune: None Psych: Depression, Anxiety Musculoskeletal: Fibromyalgia, Chronic back pain - Past Surgical History Past Surgical History: Yes Ortho: Arthroscopic surgery /[employer]: section - Present Medications Home Medications: Ambulatory Orders Medication Instructions Recorded Confirmed Ondansetron Odt [Zofran] 4 mg TL Q6H PRN #10 tablet 09/16/18 11/07/20 Hydrocodone/Acetaminophen [[place] 1 each PO Q6H PRN #15 tablet 09/17/18 11/07/20 5-325 Tablet] Hydrocodone/Acetaminophen 1 - 2 each PO Q6H PRN #14 tablet 01/01/19 11/07/20 [Hydrocodon-Acetaminophen 5-325] Albuterol Sulf [Ventolin Hfa 1 - 2 puffs INH Q4HR PRN #1 inhaler 05/05/19 11/07/20 Inhaler] Oxycodone HCl/Acetaminophen 1 - 2 each PO Q6H PRN #14 tablet 01/11/20 11/07/20 [Percocet 5-325 mg Tablet] Cyclobenzaprine [Flexeril] 10 mg PO TID PRN #20 tablet 05/01/20 11/07/20 Meloxicam [Mobic] 7.5 mg PO BID PRN #20 tablet 05/01/20 11/07/20 Oxycodone HCl/Acetaminophen 1 - 2 each PO Q6H PRN #14 tablet 07/15/21 [Percocet 5-325 mg Tablet] Penicillin V Potassium 500 mg PO Q6HR #40 tablet 07/15/21 Fluconazole [Diflucan] 100 mg PO DAILY #1 tablet 07/23/21 Amox/Clav 875/125 [Augmentin] 1 each PO TID #30 tablet 12/18/21 Ondansetron Odt [Zofran] 4 mg TL Q6H PRN #10 tablet 12/18/21 Oxycodone HCl/Acetaminophen 1 - 2 each PO Q6H PRN #14 tablet 12/18/21 [Percocet 5-325 mg Tablet] ONDANSETRON ODT Prepack 2 [ZOFRAN 4 mg TL Q6H #14 tablet 08/27/22 ODT Prepack 2] - Allergies Allergies/Adverse Reactions: Allergies Allergy/AdvReac Type Severity Reaction Status Date / Time codeine AdvReac Intermediate Rash Verified 08/27/22 17:59 - Social History Does the pt smoke?: Yes Smoking Status: Current every day smoker Does the pt drink ETOH?: Yes Does the pt have substance abuse?: Yes - Immunizations Immunizations are current?: Yes Immunizations: TDAP current <10years - POLST Patient has POLST: No PD ED PE NORMAL - Vitals Vital signs reviewed: Yes - General General: Alert and oriented X 3, No acute distress, Well developed/nourished - HEENT HEENT: Moist mucous membranes - Cardiac Cardiac: RRR, No murmur - Respiratory Respiratory: No respiratory distress, Clear bilaterally - Abdomen Abdomen: Normal bowel sounds, Soft, Non tender, Non distended - Back Back: No CVA TTP - Derm Derm: Normal color, Warm and dry - Extremities Extremities: No edema Results - Vitals Vitals: Oxygen O2 Source Room air - Labs Labs: Laboratory Tests 08/27/22 08/27/22 08/27/22 18:20 18:20 18:27 WBC 10.8 RBC 4.75 Hgb 13.9 Hct 41.5 MCV 87.4 MCH 29.3 MCHC 33.5 RDW 12.3 Plt Count 205 MPV 12.5 H Neut # (Auto) Not Reportable Lymph # (Auto) Not Reportable Titus # (Auto) Not Reportable Eos # (Auto) Not Reportable Baso # (Auto) Not Reportable Absolute Nucleated RBC Not Reportable Total Counted 100 Band Neuts % (Manual) 0 Reactive Lymphs % (Man) 15 Abnorm Lymph % (Manual) 0 Nucleated RBC % Not Reportable Neutrophils # (Manual) 3.8 Lymphocytes # (Manual) 6.8 H Monocytes # (Manual) 0.0 Eosinophils # (Manual) 0.2 Basophils # (Manual) 0.0 Differential Comment MANUAL DIFFERENTIAL Platelet Estimate NORMAL (130-450,000) Platelet Morphology NORMAL APPEARANCE RBC Morph Micro Appear NORMAL APPEARANCE Sodium 137 Potassium 4.0 Chloride 101 Carbon Dioxide 24 Anion Gap 12.0 BUN 16 Creatinine 0.8 Estimated GFR (MDRD) 81 L Glucose 121 H Calcium 10.4 H Total Bilirubin 0.4 AST 12 ALT 17 Alkaline Phosphatase 36 L Total Protein 7.6 Albumin 4.3 Globulin 3.3 Albumin/Globulin Ratio 1.3 Lipase 32 Urine Color YELLOW Urine Clarity CLEAR Urine pH 6.0 Ur Specific [place] 1.025 Urine Protein NEGATIVE Urine Glucose (UA) NEGATIVE Urine Ketones NEGATIVE Urine Occult Blood NEGATIVE Urine Nitrite NEGATIVE Urine Bilirubin NEGATIVE Urine Urobilinogen 0.2 (NORMAL) Ur Leukocyte Esterase NEGATIVE Ur Microscopic Review NOT INDICATED Urine Culture Comments NOT INDICATED Urine HCG, Qual NEGATIVE PD Medical Decision Making - ED course ED course: [facility]th [facility] ED visit for this 36 year old patient. Various c/o over different timeframes, with chief complaint of abdominal pressure and bloating over "a few weeks" (per patient). No concerning nor diagnostic findings on basic blood tests performed tonight in ED (CBC, ER abdominal panel). Benign abdominal exam. Results reviewed with patient. Further emergent testing on indicated at this time; unlikely to result in diagnosis or change treatment (symptomatic). I advised patient to follow up with PMD, return precautions discussed. Lack of findings to explain or suggest her symptoms is d/w patient. Departure - Departure Disposition: 01 Home, Self Care Clinical Impression: Abdominal pain Qualifiers: Abdominal location: upper abdomen, unspecified Qualified Code(s): R10.10 - Upper abdominal pain, unspecified Condition: Good Instructions: ED Abdominal Pain Female Non-Specific Abdominal Pain Follow-Up: Rafael Mcgee MD [Primary Care Provider] - Prescriptions: ONDANSETRON ODT Prepack 2 [ZOFRAN ODT Prepack 2] 4 mg TL Q6H #14 tablet Comments: The results of tonight's blood tests and urinalysis are normal. These results are, of course, reassuring, but at the same time, the cause of your pain is not apparent nor implied by the results. As we discussed, at this time, I do not think further testing in the emergency department would be beneficial (such as a CT scan of your abdomen or ultrasound of the gallbladder). However, if your symptoms worsen, or if you develop new/concerning signs/symptoms (such as fever, intractable vomiting, blood in the vomit or stool), certainly you should consider returning to the emergency department. Contact your primary care provider tomorrow when their office opens to arrange f or next available appointment. Based on the ongoing nature of your pain over a few weeks now, further testing might be helpful in the outpatient setting. As we discussed, I recommend that you take a acid blocking medication in the category of what is called a proton pump inhibitor. These are available [id number] and this prescription is unnecessary; the most common examples of this type of medication are prilosec and nexium. You should take one or the other, once per day , for the next 2 weeks. Discharge Date/Time: 08/27/22 20:52
[2022-08-27] MEDS ORDERED: oxyCODONE 5 MG TABLET PO STA (20:28)
[2022-08-27] MEDS ORDERED: ONDANSETRON ODT 4 MG TABLET TL STA (20:29)
[2022-08-27] MEDS ORDERED: oxyCODONE/ACET 5/325 Prepack 4 PO STA (20:37)
[2022-08-27] MEDS ORDERED: PANTOPRAZOLE 40 MG TABLET PO STA (20:47)
== END 2022-08-27 20:52 | disposition home or self-care (01) ==
LOC: ED 17:47
DX: R10.10 Upper abdominal pain, unspecified (principal); F17.200 Nicotine dependence, unspecified, uncomplicated
CPT/HCPCS: 36415; 80053; 81003; 81025; 83690; 85025; 99283; A9270; Q0162; 81001; 87086

== ENCOUNTER 2022-09-03 18:55 | Emergency (ER) | payer MEDICAID ==
--- OUTSIDE RECORDS SUMMARY | 2022-09-03 20:05 | EXTERNAL MEDICAL SUMMARY RPT | Continuity of Care Document ---
:1985 Author Organization [place] Address [address] [place] [address] Phone Care Team Providers Name Role Phone Unavailable Unavailable Unavailable Rafael Mcgee Unavailable Unavailable Allergies and Intolerances date description facility type (no date) No Known Drug Allergies [facility] (unkn own) Encounters No information. Functional Status No information. Immunizations No information. Medications date description facility [facility]:00 Duloxetine [facility] Problems date description facility 2022-08-02 09:05 Mixed hyperlipidemia [facility] 2022-08-02 09:05 Sleep apnea, unspecified [facility] 2022-08-02 09:05 Other fatigue [facility] 2022-08-15 00:00 Adenomyosis of uterus [facility] 2022-08-15 00:00 Stenosis of cervix [facility] 2022-08-30 15:00 Stricture and stenosis of [facility] 2022-08-30 15:00 Encounter for insertion of [facility] contraceptive device 2022-08-30 15:47 Stricture and stenosis of cervix [facility] 2022-08-30 15:47 Encounter for insertion of [facility] contraceptive device 2022-08-30 16:36 [facility] 2022-08-30 16:36 Stricture and stenosis of cervix [facility] 2022-08-30 16:36 Encounter for insertion of intrauterine [facility] contraceptive device 2022-08-30 16:49 Adenomyosis of the uterus [facility] 2022-08-30 16:49 Stricture and stenosis of cervix [facility] 2022-08-30 16:49 Encounter for insertion of [facility] contraceptive device 2022-08-30 17:08 Adenomyosis of the [facility] 20[facility]-30 17:08 Stricture and stenosis of cervix [facility] 2022-08-30 17:08 Encounter for insertion of intrauterine [facility] contraceptive device Procedures date description facility 2022-08-30 00:00 Dilation and Curettage [facility] 2022-08-30 00:00 Intrauterine Device Insertion/Removal [facility] Results/Labs test date author facility value unit [...] [facility] unknown) Result panel 24 (unknown) (no date) ([facility]) Result panel 25 (unknown) (no date) (unknown[facility]) Result panel 26 (unknown) (no date) (unknown[facility]) Result panel 27 (unknown) (no date) (unknown[facility]) Result panel 28 (unknown) (no date) (unknown[facility]) Result panel 29 (unknown) (no date) (unknown[facility]) Result panel 30 (unknown) (no date) (unknown[facility]) Result panel 31 (unknown) (no date) (unknown[facility]) Result panel 32 (unknown) (no date) (unknown[facility]) Result panel 33 (unknown) (no date) (unknown[facility]) Result panel 34 (unknown) (no date) (unknown[facility]) Result panel 35 (unknown) (no date) (unknown[facility]) Result panel 36 (unknown) (no date) (unknown[facility]) Result panel 37 (unknown) (no date) (unknown[facility]) Result panel 38 (unknown) (no date) (unknown[facility]) Result panel 39 (unknown) (no date) (unknown[facility]) Result panel 40 (unknown) (no date) (unknown[facility]) Result panel 41 (unknown) (no date) (unknown[facility]) Result panel 42 (unknown) (no date) (unknown[facility]) Result panel 43 (unknown) (no date) (unknown[facility]) Result panel 44 (unknown) (no date) (unknown[facility]) Result panel 45 (unknown) (no date) (unknown[facility]) Result panel 46 (unknown) (no date) (unknown[facility]) Result panel 47 (unknown) (no (unknown) (unknown) [...] own) date) unknown) (unknown) (no (unknown) (unknown) [place], [place] (units ( unknown) date) [address] unknown) (unknown) (no (unknown) (unknown) Anesthesia (units [...] date) () unknown) (unknown) (no (unknown) (unknown) Bihctip-Xwdqu-Vr (units (unknown) date) oth disease unknown) (unknown) [...] (unknown) (unknown) : 1985 (units (unknown) date) Acct:[id number] unknown) (unknown) (no (unknown) (unknown) Depression (units [...] wn) date) unknown) (unknown) (no (unknown) (unknown) [id number] (units (unk nown) date) unknown) (unknown) (no [...] (unknown) (unknown) Patient: (units (unkno wn) date) Kenyetta Cornejo unknown) B MR#: (unknown) (no (unknown) (unknown) [...] (unknown) (unknown) 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, (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, 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 (unknown) (no (unknown) (unknown) [...] unknown) 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, 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 (unknown) (no (unknown) (unknown) trazodone 50 mg (units (unknown) date) tablet 50 mg PO unknown) BEDTIME PRN sleep 01/03/22 [History Confirmed Result panel 48 (unknown) (no (unknown) (unknown) [...] own) date) unknown) (unknown) (no (unknown) (unknown) [place], [place] (units ( unknown) date) [address] unknown) (unknown) (no (unknown) (unknown) Anesthesia (units [...] date) () unknown) (unknown) (no (unknown) (unknown) Wfobjam-Byndz-Rg (units (unknown) date) oth disease unknown) (unknown) [...] (unknown) (unknown) : 1985 (units (unknown) date) Acct:[id number] unknown) (unknown) (no (unknown) (unknown) Depression (units [...] wn) date) unknown) (unknown) (no (unknown) (unknown) [id number] (units (unk nown) date) unknown) (unknown) (no [...] (unknown) (unknown) Patient: (units (unkno wn) date) Kenyetta Cornejo unknown) B MR#: (unknown) (no (unknown) (unknown) [...] (unknown) (unknown) 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, (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, 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 (unknown) (no (unknown) (unknown) [...] unknown) 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, 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 (unknown) (no (unknown) (unknown) trazodone 50 mg (units (unknown) date) tablet 50 mg PO unknown) BEDTIME PRN sleep 01/03/22 [History Confirmed Result panel 49 (unknown) (no (unknown) (unknown) [...] own) date) unknown) (unknown) (no (unknown) (unknown) [place], [place] (units ( unknown) date) [address] unknown) (unknown) (no (unknown) (unknown) Anesthesia (units [...] date) () unknown) (unknown) (no (unknown) (unknown) Djzxvyd-Lnzpv-Lb (units (unknown) date) oth disease unknown) (unknown) [...] (unknown) (unknown) : 1985 (units (unknown) date) Acct:[id number] unknown) (unknown) (no (unknown) (unknown) Depression (units [...] wn) date) unknown) (unknown) (no (unknown) (unknown) [id number] (units (unk nown) date) unknown) (unknown) (no [...] (unknown) (unknown) Patient: (units (unkno wn) date) Kenyetta Cornejo unknown) B MR#: (unknown) (no (unknown) (unknown) [...] (unknown) (unknown) 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 Result panel 50 (unknown) (no (unknown) (unknown) [...] date) unknown) (unknown) (no (unknown) (unknown) [address] [place] [address] (units (unknown) date) unknown) (unknown) (no (unknown) [...] Accession (units (unkn own) date) Number: unknown) [id number] ?? (unknown) (no (unknown) (unknown) Acct:[id number] (units (unknown) date) unknown) (unknown) (no (unknown) [...] own) date) unknown) (unknown) (no (unknown) (unknown) [place]units ( unknown) date) [address] unknown) (unknown) (no (unknown) (unknown) Anesthesia (units [...] date) (-2002) unknown) (unknown) (no (unknown) (unknown) Wzgsmxj-Jhajs-Ld (units (unknown) date) oth disease unknown) (unknown) [...] (unknown) (unknown) : 1985 (units (unknown) date) Acct:[id number] unknown) (unknown) (no (unknown) (unknown) : 1985 [...] syndrome () unknown) (unknown) (no (unknown) (unknown) [facility] (units (unknown) date) unknown) (unknown) (no (unknown) (unknown) Left ovarian (units (u nknown) date) cyst () unknown) (unknown) (no (unknown) (unknown) Loc: [facility] (units (unkno wn) date) unknown) (unknown) (no (unknown) (unknown) Loc: MRI (units (unkno wn) date) unknown) (unknown) (no (unknown) (unknown) [id number] (units (unk nown) date) unknown) (unknown) (no (unknown) (unknown) MR#: [id number] (units (unknown) date) unknown) (unknown) (no (unknown) (unknown) Magnetic (units (unkno wn) date) Resonance Report unknown) (unknown) (no (unknown) (unknown) Medical History (units (unknown) date) (Updated 01/31/22 unknown) @ 20:23 by Rahda Toledo) (unknown) (no (unknown) (unknown) Medications (units [...] (unknown) (unknown) Patient: (units (unkno wn) date) Clemente,Kenyetta unknown) B MR#: (unknown) (no (unknown) (unknown) Patient: (units (unkno wn) date) Clemente,Kenyetta unknown) B (unknown) (no (unknown) (unknown) Position [...] (unknown) (unknown) 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, (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, 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 (unknown) (no (unknown) (unknown) [...] unknown) 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, 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 (unknown) (no (unknown) (unknown) surgery in [...] (units (unkno wn) date) unknown) Result panel 51 (unknown) (no (unknown) (unknown) [...] date) unknown) (unknown) (no (unknown) (unknown) [address] [place] [address] (units (unknown) date) unknown) (unknown) (no (unknown) [...] date) unknown) (unknown) (no (unknown) (unknown) ADHD (-1999) (units (u nknown) date) unknown) (unknown) (no (unknown) (unknown) Abdominal pain (units (unknown) date) unknown) (unknown) (no (unknown) (unknown) Abnormal Pap (units (u nknown) date) smear of cervix unknown) (unknown) (no (unknown) (unknown) Abnormal chest (units (unknown) date) xray () unknown) (unknown) (no (unknown) (unknown) Accession (units (unkn own) date) Number: unknown) [id number] ?? (unknown) (no (unknown) (unknown) Acct:[id number] (units (unknown) date) unknown) (unknown) (no (unknown) [...] own) date) unknown) (unknown) (no (unknown) (unknown) [place], [place] (units ( unknown) date) [address] unknown) (unknown) (no (unknown) (unknown) Anesthesia (units [...] date) () unknown) (unknown) (no (unknown) (unknown) Jkmvmvu-Hptjw-Ie (units (unknown) date) oth disease unknown) (unknown) [...] (unknown) (unknown) : 1985 (units (unknown) date) Acct:[id number] unknown) (unknown) (no (unknown) (unknown) : 1985 [...] syndrome () unknown) (unknown) (no (unknown) (unknown) [facility] (units (unknown) date) unknown) (unknown) (no (unknown) (unknown) Left ovarian (units (u nknown) date) cyst () unknown) (unknown) (no (unknown) (unknown) Loc: [facility] (units (unkno wn) date) unknown) (unknown) (no (unknown) (unknown) Loc: MRI (units (unkno wn) date) unknown) (unknown) (no (unknown) (unknown) [id number] (units (unk nown) date) unknown) (unknown) (no (unknown) (unknown) MR#: [id number] (units (unknown) date) unknown) (unknown) (no (unknown) [...] (unknown) (unknown) Patient: (units (unkno wn) date) Kenyetta Cornejo unknown) B MR#: (unknown) (no (unknown) (unknown) Patient: (units (unkno wn) date) Kenyetta Cornejo unknown) B (unknown) (no (unknown) (unknown) Position [...] (unknown) (unknown) 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, (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, 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 (unknown) (no (unknown) (unknown) [...] unknown) 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, 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 (unknown) (no (unknown) (unknown) surgery in [...] (units (unkno wn) date) unknown) Result panel 52 (unknown) (no (unknown) (unknown) [...] xray () unknown) (unknown) (no (unknown) (unknown) Acct:[id number] (units (unknown) date) unknown) (unknown) (no (unknown) [...] own) date) unknown) (unknown) (no (unknown) (unknown) [place], [place] (units ( unknown) date) [address] unknown) (unknown) (no (unknown) (unknown) Anesthesia (units [...] date) () unknown) (unknown) (no (unknown) (unknown) Qaudjpa-Jqpde-Vl (units (unknown) date) oth disease unknown) (unknown) [...] (unknown) (unknown) : 1985 (units (unknown) date) Acct:[id number] unknown) (unknown) (no (unknown) (unknown) : 1985 [...] Left ovarian (units (u nknown) date) cyst (-2021) unknown) (unknown) (no (unknown) (unknown) Loc: [facility] (units (unkno wn) date) unknown) (unknown) (no (unknown) (unknown) Loc: MRI (units (unkno wn) date) unknown) (unknown) (no (unknown) (unknown) [id number] (units (unk nown) date) unknown) (unknown) (no (unknown) (unknown) MR#: [id number] (units (unknown) date) unknown) (unknown) (no (unknown) [...] (unknown) (unknown) Number: (units (unkno wn) date) [id number] ?? 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] date) (-2002) unknown) (unknown) (no (unknown) (unknown) Akucgba-Jhwbg-Um (units (unknown) date) oth disease unknown) (unknown) [...] (unknown) (unknown) : 1985 (units (unknown) date) Acct:[id number] unknown) (unknown) (no (unknown) (unknown) : 1985 [...] wn) date) unknown) (unknown) (no (unknown) (unknown) [id number] (units (unk nown) date) unknown) (unknown) (no (unknown) (unknown) MR#: [id number] (units (unknown) date) unknown) (unknown) (no (unknown) [...] (unknown) (unknown) Number: (units (unkno wn) date) [id number] ?? 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 (unknown) (no (unknown) (unknown) surgery in [...] (units (unkno wn) date) unknown) Result panel 54 (unknown) (no (unknown) (unknown) (no value) (units [...] xray (-2014) unknown) (unknown) (no (unknown) (unknown) Acct:[id number] (units (unknown) date) unknown) (unknown) (no (unknown) [...] own) date) unknown) (unknown) (no (unknown) (unknown) [place], [place] (units ( unknown) date) [address] unknown) (unknown) (no (unknown) (unknown) Anesthesia (units [...] date) () unknown) (unknown) (no (unknown) (unknown) Duayyac-Xlmbs-Tp (units (unknown) date) oth disease unknown) (unknown) [...] (unknown) (unknown) : 1985 (units (unknown) date) Acct:[id number] unknown) (unknown) (no (unknown) (unknown) : 1985 [...] wn) date) unknown) (unknown) (no (unknown) (unknown) [id number] (units (unk nown) date) unknown) (unknown) (no (unknown) (unknown) MR#: [id number] (units (unknown) date) unknown) (unknown) (no (unknown) [...] (unknown) (unknown) Number: (units (unkno wn) date) [id number] ?? unknown) (unknown) (no (unknown) (unknown) Ordering [...] (unknown) (unknown) Patient: (units (unkno wn) date) Clemente,Kenyetta unknown) B MR#: (unknown) (no (unknown) (unknown) Patient: (units (unkno wn) date) Clemente,Kenyetta unknown) B (unknown) (no (unknown) (unknown) Pelvic US (units (unkn own) date) 6/23/22 at unknown) [place]? 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 (unknown) (no (unknown) (unknown) started nearly [...] (units (unkno wn) date) unknown) Result panel 55 (unknown) (no (unknown) (unknown) (no value) (units [...] xray (-2014) unknown) (unknown) (no (unknown) (unknown) Acct:[id number] (units (unknown) date) unknown) (unknown) (no (unknown) [...] own) date) unknown) (unknown) (no (unknown) (unknown) [place], [place] (units ( unknown) date) [address] unknown) (unknown) (no (unknown) (unknown) Anesthesia (units [...] date) (-2002) unknown) (unknown) (no (unknown) (unknown) Ovbfywx-Lqbbd-Fu (units (unknown) date) oth disease unknown) (unknown) [...] (unknown) (unknown) : 1985 (units (unknown) date) Acct:[id number] unknown) (unknown) (no (unknown) (unknown) : 1985 [...] then another (unknown) (no (unknown) (unknown) Herpes (-2018) (units [...] wn) date) unknown) (unknown) (no (unknown) (unknown) [id number] (units (unk nown) date) unknown) (unknown) (no (unknown) (unknown) MR#: [id number] (units (unknown) date) unknown) (unknown) (no (unknown) [...] (unknown) (unknown) Number: (units (unkno wn) date) [id number] ?? 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 (unknown) (no (unknown) (unknown) sometimes (units [...] (units (unkno wn) date) unknown) Result panel 56 (unknown) (no (unknown) (unknown) (no value) (units [...] xray (-2014) unknown) (unknown) (no (unknown) (unknown) Acct:[id number] (units (unknown) date) unknown) (unknown) (no (unknown) [...] own) date) unknown) (unknown) (no (unknown) (unknown) [place], [place] (units ( unknown) date) [address] unknown) (unknown) (no (unknown) (unknown) Anesthesia (units [...] Betadine: unknown) Yes (unknown) (no (unknown) (unknown) Oarcukw-Dwaij-Nm (units (unknown) date) oth disease unknown) (unknown) [...] (unknown) (unknown) : 1985 (units (unknown) date) Acct:[id number] unknown) (unknown) (no (unknown) (unknown) : 1985 [...] then another (unknown) (no (unknown) (unknown) Herpes (-2018) (units [...] wn) date) unknown) (unknown) (no (unknown) (unknown) [id number] (units (unk nown) date) unknown) (unknown) (no (unknown) (unknown) MR#: [id number] (units (unknown) date) unknown) (unknown) (no (unknown) [...] (unknown) (unknown) Number: (units (unkno wn) date) [id number] ?? 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 Uterine (units (unk n) date) findings unknown) suggestive of adenomyosis. (unknown) [...] xray (-2014) unknown) (unknown) (no (unknown) (unknown) Acct:[id number] (units (unknown) date) unknown) (unknown) (no (unknown) [...] own) date) unknown) (unknown) (no (unknown) (unknown) [place], [place] (units ( unknown) date) [address] unknown) (unknown) (no (unknown) (unknown) Anesthesia (units [...] Betadine: unknown) Yes (unknown) (no (unknown) (unknown) Ulftarh-Vmwma-Rm (units (unknown) date) oth disease unknown) (unknown) [...] (unknown) (unknown) : 1985 (units (unknown) date) Acct:[id number] unknown) (unknown) (no (unknown) (unknown) : 1985 [...] wn) date) unknown) (unknown) (no (unknown) (unknown) [id number] (units (unk nown) date) unknown) (unknown) (no (unknown) (unknown) MR#: [id number] (units (unknown) date) unknown) (unknown) (no (unknown) [...] (unknown) (unknown) Number: (units (unkno wn) date) [id number] ?? 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 Optional unknown) long- and short-axis uterine nonbreath-hold T2 FSE (unknown) (no (unknown) (unknown) through (units (unkno wn) date) unknown) (unknown) (no (unknown) (unknown) to the (units (o wn) date) symphysis.? unknown) Optional diffusion weighted [...] of a progesterone IUD and Result panel 58 (unknown) (no (unknown) (unknown) (no value) (units [...] xray () unknown) (unknown) (no (unknown) (unknown) Acct:[id number] (units (unknown) date) unknown) (unknown) (no (unknown) [...] own) date) unknown) (unknown) (no (unknown) (unknown) [place], [place] (units ( unknown) date) [address] unknown) (unknown) (no (unknown) (unknown) Anesthesia (units [...] Betadine: unknown) Yes (unknown) (no (unknown) (unknown) Nhakmgz-Ovugb-Rr (units (unknown) date) oth disease unknown) (unknown) [...] (unknown) (unknown) : 1985 (units (unknown) date) Acct:[id number] unknown) (unknown) (no (unknown) (unknown) : 1985 [...] did have (unknown) (no (unknown) (unknown) Gout (-2016) (units [...] wn) date) unknown) (unknown) (no (unknown) (unknown) [id number] (units (unk nown) date) unknown) (unknown) (no (unknown) (unknown) MR#: [id number] (units (unknown) date) unknown) (unknown) (no (unknown) [...] (unknown) (unknown) Number: (units (unkno wn) date) [id number] ?? unknown) (unknown) (no (unknown) (unknown) Office [...] (unknown) Patient: (units (unkno wn) date) Griselda Cornejoia unknown) B MR#: (unknown) (no (unknown) (unknown) Patient: (units (unkno wn) date) Griselda Cornejoia unknown) B (unknown) (no (unknown) (unknown) Pelvic [...] (no (unknown) (unknown) Screen Pap (units (unk n) date) collected since unknown) due. 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 (unknown) (no (unknown) (unknown) sometimes (units [...] of a progesterone IUD and Result panel 59 (unknown) (no (unknown) (unknown) (no value) (units [...] own) date) unknown) (unknown) (no (unknown) (unknown) [place], [place] (units ( unknown) date) [address] unknown) (unknown) (no (unknown) (unknown) Anesthesia (units [...] date) () unknown) (unknown) (no (unknown) (unknown) Kyeaqnb-Uwwly-Bqgn (units (unknown) date) h disease unknown) (unknown) [...] (unknown) (unknown) : 1985 (units (unknown) date) Acct:[id number] unknown) (unknown) (no (unknown) (unknown) Depression (units [...] wn) date) unknown) (unknown) (no (unknown) (unknown) [id number] (units (unk nown) date) unknown) (unknown) (no [...] (unknown) (unknown) Patient: (units (unkno wn) date) Kenyetta Cornejo unknown) MR#: (unknown) (no (unknown) (unknown) Platelet [...] date) followed by unknown) Shady at the [facility]. 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 She started using (unknown) (no (unknown) (unknown) sided sciatica. (units (unknown) date) Aggravating factors unknown) include rising from sitting, prolonged (unknown) (no (unknown) (unknown) software. 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 (units (unknown) date) Associated symptoms unknown) include difficulty walking. Overall (unknown) (no (unknown) (unknown) unremarkable, and (units (unknown) date) was treated for 2 unknown) weeks with Augmentin for possible (unknown) (no (unknown) (unknown) uterine fibroids (units (unknown) date) and ovarian cysts unknown) according to the patient, with records not Result panel 60 (unknown) (no (unknown) (unknown) (no value) (units [...] own) date) unknown) (unknown) (no (unknown) (unknown) [place], [place] (units ( unknown) date) [address] unknown) (unknown) (no (unknown) (unknown) Anesthesia (units [...] unknown) (-) 08/22/16 (unknown) (no (unknown) (unknown) Carpal tunnel (units ( unknown) date) syndrome () unknown) (unknown) (no (unknown) (unknown) Cervical cancer (units (unknown) date) (-2002) unknown) (unknown) (no (unknown) (unknown) Ucczyqm-Pjdcn-Nyhx (units (unknown) date) h disease unknown) (unknown) [...] (unknown) (unknown) : 1985 (units (unknown) date) Acct:[id number] unknown) (unknown) (no (unknown) (unknown) Depression (units [...] wn) date) unknown) (unknown) (no (unknown) (unknown) [id number] (units (unk nown) date) unknown) (unknown) (no [...] (unknown) (unknown) Patient: (units (unkno wn) date) Kenyetta Cornejo unknown) MR#: (unknown) (no (unknown) (unknown) Platelet [...] date) followed by unknownAsmita Caruso at the [facility]. 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 She started using (unknown) (no (unknown) (unknown) sided sciatica. (units (unknown) date) Aggravating factors unknown) include rising from sitting, prolonged (unknown) (no (unknown) (unknown) software. 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 [...] the patient, with records not Result panel 61 (unknown) (no (unknown) (unknown) (no value) (units [...] own) date) unknown) (unknown) (no (unknown) (unknown) [place], [place] (units ( unknown) date) [address] unknown) (unknown) (no (unknown) (unknown) Anesthesia (units [...] date) () unknown) (unknown) (no (unknown) (unknown) Ioyxifm-Kyomf-Yufw (units (unknown) date) h disease unknown) (unknown) [...] (unknown) (unknown) : 1985 (units (unknown) date) Acct:[id number] unknown) (unknown) (no (unknown) (unknown) Depression (units [...] wn) date) unknown) (unknown) (no (unknown) (unknown) [id number] (units (unk nown) date) unknown) (unknown) (no [...] (unknown) (unknown) Patient: (units (unkno wn) date) Kenyetta Cornejo B unknown) MR#: (unknown) (no (unknown) (unknown) [...] score = . (unknown) (no (unknown) (unknown) She reports (units [...] date) followed by unknownAsmita Caruso at the [facility]. 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 She started using (unknown) (no (unknown) (unknown) sided sciatica. (units (unknown) date) Aggravating factors unknown) include rising from sitting, prolonged (unknown) (no (unknown) (unknown) software. 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 [...] unknown) - Other chronic pain Result panel 62 (unknown) (no (unknown) (unknown) (no value) (units [...] own) date) unknown) (unknown) (no (unknown) (unknown) [place], [place] (units ( unknown) date) [address] unknown) (unknown) (no (unknown) (unknown) Anesthesia (units [...] (units (unknown) date) Level 25.0 mmol/L unknown) (22-) 08/22/16 (unknown) (no (unknown) (unknown) Carpal tunnel (units ( unknown) date) syndrome () unknown) (unknown) (no (unknown) (unknown) Cervical cancer (units (unknown) date) () unknown) (unknown) (no (unknown) (unknown) Mqkadeo-Gmekq-Azxp (units (unknown) date) h disease unknown) (unknown) [...] (unknown) (unknown) : 1985 (units (unknown) date) Acct:[id number] unknown) (unknown) (no (unknown) (unknown) Depression (units [...] wn) date) unknown) (unknown) (no (unknown) (unknown) [id number] (units (unk nown) date) unknown) (unknown) (no [...] (unknown) (unknown) Patient: (units (unkno wn) date) Kenyetta Cornejo B unknown) MR#: (unknown) (no (unknown) (unknown) [...] date) followed by unknown) Shady at the [facility]. 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 She started using (unknown) (no (unknown) (unknown) sided sciatica. (units (unknown) date) Aggravating factors unknown) include rising from sitting, prolonged (unknown) (no (unknown) (unknown) software. 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 [...] unknown) - Other chronic pain Result panel 63 (unknown) (no (unknown) (unknown) (no value) (units [...] own) date) unknown) (unknown) (no (unknown) (unknown) [place], [place] (units ( unknown) date) [address] unknown) (unknown) (no (unknown) (unknown) Anesthesia (units [...] unknown) (-) 08/22/16 (unknown) (no (unknown) (unknown) Carpal tunnel (units ( unknown) date) syndrome (-2020) unknown) (unknown) (no (unknown) (unknown) Cervical cancer (units (unknown) date) (-2003) unknown) (unknown) (no (unknown) (unknown) Pbshltk-Ximlj-Bsyi (units (unknown) date) h disease unknown) (unknown) [...] (unknown) (unknown) : 1985 (units (unknown) date) Acct:[id number] unknown) (unknown) (no (unknown) (unknown) Depression (units [...] wn) date) unknown) (unknown) (no (unknown) (unknown) [id number] (units (unk nown) date) unknown) (unknown) (no [...] (unknown) (unknown) Patient: (units (unkno wn) date) Kenyetta Cornejo unknown) MR#: (unknown) (no (unknown) (unknown) Plan [...] xrays unknown) at the walk-in clinic in [place] and (unknown) (no (unknown) (unknown) Shortness of [...] followed by Dr. martin Caruso at the [facility]. 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 She started using (unknown) (no (unknown) (unknown) sided sciatica. (units (unknown) date) Aggravating factors unknown) include rising from sitting, prolonged (unknown) (no (unknown) (unknown) software. 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 [...] (units (unknown) date) goals. unknown) Result panel 64 (unknown) (no (unknown) (unknown) (no value) (units [...] own) date) unknown) (unknown) (no (unknown) (unknown) [place], [place] (units ( unknown) date) [address] unknown) (unknown) (no (unknown) (unknown) Anesthesia (units [...] date) () unknown) (unknown) (no (unknown) (unknown) Pohvvkc-Ntfwz-Epzv (units (unknown) date) h disease unknown) (unknown) [...] (unknown) (unknown) : 1985 (units (unknown) date) Acct:[id number] unknown) (unknown) (no (unknown) (unknown) Depression (units [...] wn) date) unknown) (unknown) (no (unknown) (unknown) [id number] (units (unk nown) date) unknown) (unknown) (no [...] (unknown) (unknown) Patient: (units (unkno wn) date) Kenyetta Cornejo B unknown) MR#: (unknown) (no (unknown) (unknown) [...] xrays unknown) at the walk-in clinic in [place] and (unknown) (no (unknown) (unknown) Shortness of [...] date) followed by unknown) Shady at the [facility] with (unknown) (no (unknown) (unknown) Surgical [...] (units (unknown) date) 0.3 mg/dL (0.2-1.3) unknown) 02/15/17 (unknown) (no (unknown) (unknown) Total Protein 7.5 [...] (unknown) (unknown) 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 She (units (unknown) date) states she is very unknown) tired during the day and could fall asleep (unknown) (no (unknown) (unknown) software. 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 [...] (units (unknown) date) goals. unknown) Result panel 65 (unknown) (no (unknown) (unknown) (no value) (units [...] own) date) unknown) (unknown) (no (unknown) (unknown) [place], [place] (units ( unknown) date) [address] unknown) (unknown) (no (unknown) (unknown) Anesthesia (units [...] unknown) (22-30) 08/22/16 (unknown) (no (unknown) (unknown) Care per R[facility] FILLER at (units (unknown) date) this point. unknown) (unknown) (no (unknown) (unknown) Care reviewed. (units (unknown) date) unknown) (unknown) (no (unknown) (unknown) Carpal tunnel (units ( unknown) date) syndrome () unknown) (unknown) (no (unknown) (unknown) Cervical cancer (units (unknown) date) (-2002) unknown) (unknown) (no (unknown) (unknown) Vqoqrpg-Ewmwm-Jtez (units (unknown) date) h disease unknown) (unknown) [...] (unknown) (unknown) : 1985 (units (unknown) date) Acct:[id number] unknown) (unknown) (no (unknown) (unknown) Depression (units [...] wn) date) unknown) (unknown) (no (unknown) (unknown) [id number] (units (unk nown) date) unknown) (unknown) (no [...] (unknown) (unknown) Patient: (units (unkno wn) date) Kenyetta Cornejo unknown) MR#: (unknown) (no (unknown) (unknown) Plan [...] xrays unknown) at the walk-in clinic in [place] and (unknown) (no (unknown) (unknown) Shortness of [...] date) followed by unknown) Shady at the [facility] with (unknown) (no (unknown) (unknown) Surgical [...] (unknown) (unknown) 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 She (units (unknown) date) states she is very unknown) tired during the day and could fall asleep (unknown) (no (unknown) (unknown) software. Although (units (unknown) date) every effort is unknown) made to edit content, 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 m (unknown) (no (unknown) (unknown) standing, [...] (units (unknown) date) goals. unknown) Result panel 66 (unknown) (no date) (unknown) (unknown) 12.2 % [...] (unknown) 87.0 fl (unkn own) Result panel 67 (unknown) (no date) (unknown) (unknown) > 60 [...] (unknown) 92 mg/dl (unkn own) Result panel 68 (unknown) (no date) (unknown) (unknown) > 60 [...] (unknown) 92 mg/dl (unkn own) Result panel 69 (unknown) (no date) (unknown) (unknown) 3.35 uiu/ml (unkn own) Result panel 70 (unknown) (no (unknown) (unknown) (no value) (units [...] own) date) unknown) (unknown) (no (unknown) (unknown) [place], [place] (units ( unknown) date) [address] unknown) (unknown) (no (unknown) (unknown) Anesthesia (units [...] date) () unknown) (unknown) (no (unknown) (unknown) Ixnhwnz-Ajkxd-Fz (units (unknown) date) oth disease unknown) (unknown) (no (unknown) (unknown) Chlamydia (units (unkn own) date) (-2015) unknown) (unknown) (no (unknown) (unknown) Chronic insomnia (units (unknown) date) unknown) (unknown) (no (unknown) (unknown) Chronic low back (units (unknown) date) pain () unknown) (unknown) (no (unknown) (unknown) Chronic, (units (unkno wn) date) continuous use of unknown) opioids (unknown) (no (unknown) (unknown) : 1985 (units (unknown) date) Acct:[id number] unknown) (unknown) (no (unknown) (unknown) Depression (units [...] date) () unknown) (unknown) (no (unknown) (unknown) Herpes (-2019) [...] wn) date) unknown) (unknown) (no (unknown) (unknown) [id number] (units (unk nown) date) unknown) (unknown) (no [...] (unknown) (unknown) Patient: (units (unkno wn) date) Kenyetta Cornejo unknown) B MR#: (unknown) (no (unknown) (unknown) [...] (unknown) (unknown) 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, (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, 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 (unknown) (no (unknown) (unknown) [...] unknown) 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, 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 Result panel 71 (unknown) (no (unknown) (unknown) (no value) (units [...] own) date) unknown) (unknown) (no (unknown) (unknown) [place], [place] (units ( unknown) date) [address] unknown) (unknown) (no (unknown) (unknown) Anesthesia (units [...] date) () unknown) (unknown) (no (unknown) (unknown) Mslaelh-Clzye-Yi (units (unknown) date) oth disease unknown) (unknown) [...] (unknown) (unknown) : 1985 (units (unknown) date) Acct:[id number] unknown) (unknown) (no (unknown) (unknown) Depression (units [...] wn) date) unknown) (unknown) (no (unknown) (unknown) [id number] (units (unk nown) date) unknown) (unknown) (no [...] (unknown) (unknown) Patient: (units (unkno wn) date) Kenyetta Cornejo unknown) B MR#: (unknown) (no (unknown) (unknown) [...] (unknown) (unknown) 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, (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, 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 (unknown) (no (unknown) (unknown) [...] unknown) 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, 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 (unknown) (no (unknown) (unknown) trazodone 50 mg (units (unknown) date) tablet 50 mg PO unknown) BEDTIME PRN sleep 01/03/22 [History Confirmed (unknown) (no (unknown) (unknown) upon check in pt (units (unknown) date) states that she unknown) does also have a nexplanon in place Result panel 72 (unknown) (no (unknown) (unknown) (no value) (units [...] own) date) unknown) (unknown) (no (unknown) (unknown) [place], [place] (units ( unknown) date) [address] unknown) (unknown) (no (unknown) (unknown) Anesthesia (units [...] date) () unknown) (unknown) (no (unknown) (unknown) Izdmvpk-Cjliq-Pm (units (unknown) date) oth disease unknown) (unknown) [...] (unknown) (unknown) : 1985 (units (unknown) date) Acct:[id number] unknown) (unknown) (no (unknown) (unknown) Depression (units [...] wn) date) unknown) (unknown) (no (unknown) (unknown) [id number] (units (unk nown) date) unknown) (unknown) (no [...] date) mellitus unknown) (unknown) (no (unknown) (unknown) Kenyetta comes in (units (unknown) date) today for [...] (unknown) (unknown) Patient: (units (unkno wn) date) Clemente,Kenyetta unknown) B MR#: (unknown) (no (unknown) (unknown) [...] (unknown) (unknown) 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, (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, 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 (unknown) (no (unknown) (unknown) [...] unknown) 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, 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 (unknown) (no (unknown) (unknown) trazodone 50 [...] will be removed today at Result panel 73 (unknown) (no (unknown) (unknown) (no value) (units [...] own) date) unknown) (unknown) (no (unknown) (unknown) [place], [place] (units ( unknown) date) [address] unknown) (unknown) (no (unknown) (unknown) Anesthesia (units [...] date) () unknown) (unknown) (no (unknown) (unknown) Fdteycc-Xlyov-Aj (units (unknown) date) oth disease unknown) (unknown) [...] (unknown) (unknown) : 1985 (units (unknown) date) Acct:[id number] unknown) (unknown) (no (unknown) (unknown) Depression (units [...] wn) date) unknown) (unknown) (no (unknown) (unknown) [id number] (units (unk nown) date) unknown) (unknown) (no [...] date) mellitus unknown) (unknown) (no (unknown) (unknown) Kenyetta comes in (units (unknown) date) today for [...] (unknown) (unknown) Patient: (units (unkno wn) date) ClementeKenyetta unknown) B MR#: (unknown) (no (unknown) (unknown) [...] (unknown) (unknown) 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, (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, 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 (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) (no (unknown) (unknown) [...] unknown) 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, 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 (unknown) (no (unknown) (unknown) trazodone 50 [...] will be removed today at Result panel 74 (unknown) (no (unknown) (unknown) (no value) (units (unk nown) date) unknown) (unknown) (no (unknown) (unknown) 08/15/22 (units (unkno wn) date) unknown) (unknown) (no (unknown) (unknown) 08/15/22] (units (unkn own) date) unknown) (unknown) (no (unknown) (unknown) 14:43 (units (unkno wn) date) unknown) (unknown) (no (unknown) (unknown) 150 mg IM Left (units (unknown) date) Glute [id number] unknown) 04/06/24 [id number] [facility] (unknown) (no (unknown) (unknown) ADHD [...] own) date) unknown) (unknown) (no (unknown) (unknown) [place], [place] (units ( unknown) date) [address] unknown) (unknown) (no (unknown) (unknown) Anesthesia (units [...] date) () unknown) (unknown) (no (unknown) (unknown) Intuwyi-Jnggy-Bn (units (unknown) date) oth disease unknown) (unknown) [...] (unknown) (unknown) : 1985 (units (unknown) date) Acct:[id number] unknown) (unknown) (no (unknown) (unknown) Depo-Provera (units [...] date) (-2009) unknown) (unknown) (no (unknown) (unknown) HENMT (units [...] wn) date) unknown) (unknown) (no (unknown) (unknown) [id number] (units (unk nown) date) unknown) (unknown) (no (unknown) (unknown) 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) unknown) (unknown) (no [...] date) mellitus unknown) (unknown) (no (unknown) (unknown) Kenyetta comes in (units (unknown) date) today for [...] (unknown) (unknown) Patient: (units (unkno wn) date) Kenyetta Cornejo unknown) B MR#: (unknown) (no (unknown) (unknown) [...] (unknown) (unknown) 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, (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, 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 (unknown) (no (unknown) (unknown) [...] unknown) 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, 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 (unknown) (no (unknown) (unknown) trazodone 50 [...] will be removed today at Result panel 75 (unknown) (no (unknown) (unknown) (no value) (units (unk nown) date) unknown) (unknown) (no (unknown) (unknown) 08/15/22 (units (unkno wn) date) unknown) (unknown) (no (unknown) (unknown) 08/15/22] (units (unkn own) date) unknown) (unknown) (no (unknown) (unknown) 14:43 (units (unkno wn) date) unknown) (unknown) (no (unknown) (unknown) 150 mg IM Left (units (unknown) date) Glute [id number] unknown) 04/06/24 [id number] [facility] (unknown) (no (unknown) (unknown) ADHD [...] own) date) unknown) (unknown) (no (unknown) (unknown) [place], [place] (units ( unknown) date) [address] unknown) (unknown) (no (unknown) (unknown) Anesthesia (units [...] date) () unknown) (unknown) (no (unknown) (unknown) Egbvufv-Pptir-Lz (units (unknown) date) oth disease unknown) (unknown) [...] (unknown) (unknown) : 1985 (units (unknown) date) Acct:[id number] unknown) (unknown) (no (unknown) (unknown) Depo-Provera (units [...] wn) date) unknown) (unknown) (no (unknown) (unknown) [id number] (units (unk nown) date) unknown) (unknown) (no (unknown) (unknown) 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) unknown) (unknown) (no [...] date) mellitus unknown) (unknown) (no (unknown) (unknown) Kenyetta comes in (units (unknown) date) today for [...] (unknown) (unknown) Patient: (units (unkno wn) date) Kenyetta Cornejo unknown) B MR#: (unknown) (no (unknown) (unknown) [...] (unknown) (unknown) 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, (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, 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 (unknown) (no (unknown) (unknown) [...] unknown) 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, 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 (unknown) (no (unknown) (unknown) trazodone 50 [...] will be removed today at Result panel 76 (unknown) (no (unknown) (unknown) (no value) (units [...] mg IM Left (units (unknown) date) Glute [id number] unknown) 04/06/24 [id number] [facility] (unknown) (no (unknown) (unknown) ADHD [...] own) date) unknown) (unknown) (no (unknown) (unknown) [place], [place] (units ( unknown) date) [address] unknown) (unknown) (no (unknown) (unknown) Anesthesia (units [...] Betadine: unknown) Yes (unknown) (no (unknown) (unknown) Wevbtqz-Wtfxw-Jz (units (unknown) date) oth disease unknown) (unknown) [...] (unknown) (unknown) : 1985 (units (unknown) date) Acct:[id number] unknown) (unknown) (no (unknown) (unknown) Depo-Provera (units [...] wn) date) unknown) (unknown) (no (unknown) (unknown) [id number] (units (unk nown) date) unknown) (unknown) (no (unknown) (unknown) 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 The another attempt was made to Result panel 77 (unknown) (no (unknown) (unknown) (no value) (units (unk nown) date) unknown) (unknown) (no (unknown) (unknown) ADHD (-1998) (units (u nknown) date) unknown) (unknown) (no (unknown) (unknown) Abdominal pain (units (unknown) date) unknown) (unknown) (no (unknown) (unknown) Abnormal Pap smear (units (unknown) date) of cervix unknown) (unknown) (no (unknown) (unknown) Abnormal chest xray (unit s (unknown) date) () unknown) (unknown) (no (unknown) (unknown) Affect: normal (units (unknown) date) affect unknown) (unknown) (no (unknown) (unknown) Age/Sex: 36 / F (units (unknown) date) unknown) (unknown) (no (unknown) (unknown) Allergies (units (unkn own) date) unknown) (unknown) (no (unknown) (unknown) Allergy/AdvReac (units (unknown) date) Type Severity unknown) Reaction Status Date / Time (unknown) (no (unknown) (unknown) Anesthesia (units (unk nown) date) unknown) (unknown) (no (unknown) (unknown) Anxiety (units (unkno wn) date) unknown) (unknown) (no (unknown) (unknown) Appearance: grossly (unit s (unknown) date) normal unknown) (unknown) (no (unknown) (unknown) Assessment + Plan (units (unknown) date) unknown) (unknown) (no (unknown) (unknown) Asthma (units (unkno wn) date) unknown) (unknown) (no (unknown) (unknown) Attitude: (units (unkn own) date) cooperative unknown) (unknown) (no (unknown) (unknown) Auscultation: clear (unit s (unknown) date) to auscultation unknown) bilaterally (unknown) (no (unknown) (unknown) Cardio (units (unkno wn) date) unknown) (unknown) (no (unknown) (unknown) Carpal tunnel (units ( unknown) date) syndrome () unknown) (unknown) (no (unknown) (unknown) Cervical cancer (units (unknown) date) () unknown) (unknown) (no (unknown) (unknown) Elcrbto-Zxnia-Wneov (unit s (unknown) date) disease unknown) (unknown) (no (unknown) (unknown) Chlamydia () (units (unknown) date) unknown) (unknown) (no (unknown) (unknown) Chronic insomnia (units (unknown) date) unknown) (unknown) (no (unknown) (unknown) Chronic low back (units (unknown) date) pain () unknown) (unknown) (no (unknown) (unknown) Chronic, continuous (unit s (unknown) date) use of opioids unknown) (unknown) (no (unknown) (unknown) Conjunctivae: (units ( unknown) date) conjunctivae normal unknown) (unknown) (no (unknown) (unknown) Const (units (unkno wn) date) unknown) (unknown) (no (unknown) (unknown) Critical Care time: (unit s (unknown) date) unknown) (unknown) (no (unknown) (unknown) : 1985 (units (unknown) date) Acct:[id number] unknown) (unknown) (no (unknown) (unknown) Date of Service: (units (unknown) date) 08/23/22 unknown) (unknown) (no (unknown) (unknown) Depression (units (unk nown) date) unknown) (unknown) (no (unknown) (unknown) Diverticular (units (u nknown) date) disease () unknown) (unknown) (no (unknown) (unknown) EOM: EOM intact (units (unknown) date) bilaterally unknown) (unknown) (no (unknown) (unknown) Ears: hearing (units ( unknown) date) grossly normal unknown) bilaterally (unknown) (no (unknown) (unknown) Effort + (units (unkno wn) date) Inspection: normal unknown) respiratory effort and able to speak in complete (unknown) (no (unknown) (unknown) Exam (units (unkno wn) date) unknown) (unknown) (no (unknown) (unknown) Extrem (units (unkno wn) date) unknown) (unknown) (no (unknown) (unknown) Eyes (units (unkno wn) date) unknown) (unknown) (no (unknown) (unknown) Face and sinus: (units (unknown) date) face symmetric unknown) (unknown) (no (unknown) (unknown) Family History (units (unknown) date) (Reviewed 08/02/22 @ unknown) 05:44 by Rafael Mcgee MD) (unknown) (no (unknown) (unknown) Father History of (units (unknown) date) heart disease unknown) (unknown) (no (unknown) (unknown) Fibromyalgia (units (u nknown) date) () unknown) (unknown) (no (unknown) (unknown) GI (units (unkno wn) date) unknown) (unknown) (no (unknown) (unknown) General: appearance (unit s (unknown) date) normal, both eyes unknown) and all related structures (unknown) (no (unknown) (unknown) General: (units (unkno wn) date) cooperative and unknown) comfortable (unknown) (no (unknown) (unknown) General: no calf (units (unknown) date) tenderness unknown) (unknown) (no (unknown) (unknown) Gout (-2016) (units (u nknown) date) unknown) (unknown) (no (unknown) (unknown) H/O LEEP (units (unkno wn) date) unknown) (unknown) (no (unknown) (unknown) H/O laparoscopy (units (unknown) date) () unknown) (unknown) (no (unknown) (unknown) HENMT (units (unkno wn) date) unknown) (unknown) (no (unknown) (unknown) Head: normal to (units (unknown) date) inspection, unknown) atraumatic and abrasion (unknown) (no (unknown) (unknown) Heart Sounds: S1 (units (unknown) date) normal, S2 normal unknown) and no murmurs (unknown) (no (unknown) (unknown) Herpes (-2018) (units (unknown) date) unknown) (unknown) (no (unknown) (unknown) History of (units (unk nown) date) unknown) (-08/08/04) (unknown) (no (unknown) (unknown) History of Present (units (unknown) date) Illness unknown) (unknown) (no (unknown) (unknown) Home Medications (units (unknown) date) and Allergies unknown) (unknown) (no (unknown) (unknown) Home Medications (units (unknown) date) unknown) (unknown) (no (unknown) (unknown) Human papilloma (units (unknown) date) virus () unknown) (unknown) (no (unknown) (unknown) Hyperlipidemia (units (unknown) date) unknown) (unknown) (no (unknown) (unknown) Hypertension (units (u nknown) date) unknown) (unknown) (no (unknown) (unknown) I spent a total of (units (unknown) date) [] minutes of unknown) critical care time on this patient's care (unknown) (no (unknown) (unknown) Inspection: normal (units (unknown) date) to inspection unknown) (unknown) (no (unknown) (unknown) Irritable bowel (units (unknown) date) syndrome () unknown) (unknown) (no (unknown) (unknown) [facility] (units (unknown) date) [address] [place] [address] Street unknown) [place] [address] (unknown) (no (unknown) (unknown) Judgment: judgment (units (unknown) date) good unknown) (unknown) (no (unknown) (unknown) Left ovarian cyst (units (unknown) date) () unknown) (unknown) (no (unknown) (unknown) [id number] (units (unk nown) date) unknown) (unknown) (no (unknown) (unknown) Medical History (units (unknown) date) (Reviewed 08/02/22 @ unknown) 05:44 by Rafael Mcgee MD) (unknown) (no (unknown) (unknown) Medication (units (unk nown) date) Instructions unknown) Recorded Confirmed Type (unknown) (no (unknown) (unknown) Meds (units (unkno wn) date) unknown) (unknown) (no (unknown) (unknown) Mental Status: (units (unknown) date) mental status unknown) grossly normal (unknown) (no (unknown) (unknown) Mental health (units ( unknown) date) problem unknown) (unknown) (no (unknown) (unknown) Migraines (-2003) (units (unknown) date) unknown) (unknown) (no (unknown) (unknown) Mood: congruent (units (unknown) date) mood unknown) (unknown) (no (unknown) (unknown) Mother Diabetes (units (unknown) date) mellitus unknown) (unknown) (no (unknown) (unknown) Narrative: (units (unk nown) date) unknown) (unknown) (no (unknown) (unknown) Kenyetta Cornejo (units (unknown) date) is a 36 year old unknown) woman with adenomyosis most recently managed (unknown) (no (unknown) (unknown) Neck (units (unkno wn) date) unknown) (unknown) (no (unknown) (unknown) Neck: normal visual (unit s (unknown) date) inspection unknown) (unknown) (no (unknown) (unknown) No Known Drug (units ( unknown) date) Allergies Allergy unknown) Verified 08/15/22 14:43 (unknown) (no (unknown) (unknown) Nutritional (units (un known) date) Appearance: average unknown) body habitus (unknown) (no (unknown) (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 unknown) (unknown) (no (unknown) (unknown) Orientation: alert (units (unknown) date) and oriented x3 unknown) (unknown) (no (unknown) (unknown) PFSH (units (unkno wn) date) unknown) (unknown) (no (unknown) (unknown) Painful menstrual (units (unknown) date) periods unknown) (unknown) (no (unknown) (unknown) Palpation: soft and (unit s (unknown) date) no unknown) hepatosplenomegaly (unknown) (no (unknown) (unknown) Patient: (units (unkno wn) date) Kenyetta Cornejo unknown) MR#: (unknown) (no (unknown) (unknown) Problem-specific (units (unknown) date) ROS positives unknown) included in HPI (unknown) (no (unknown) (unknown) Provider: (units (unkn own) date) Sivakumar Deleon MD unknown) (unknown) (no (unknown) (unknown) Psych (units (unkno wn) date) unknown) (unknown) (no (unknown) (unknown) Rate: regular rate (units (unknown) date) unknown) (unknown) (no (unknown) (unknown) Reason for (units (unk nown) date) admission: other unknown) (Adenomyosis, chronic pelvic pain) (unknown) (no (unknown) (unknown) Resp (units (unkno wn) date) unknown) (unknown) (no (unknown) (unknown) Review of Systems (units (unknown) date) unknown) (unknown) (no (unknown) (unknown) Rhythm: regular (units (unknown) date) rhythm unknown) (unknown) (no (unknown) (unknown) Sclera: sclerae (units (unknown) date) normal unknown) (unknown) (no (unknown) (unknown) Severe obesity (BMI (unit s (unknown) date) >= 40) unknown) (unknown) (no (unknown) (unknown) Shortness of breath (unit s (unknown) date) unknown) (unknown) (no (unknown) (unknown) Signed By: (units (unk nown) date) unknown) (unknown) (no (unknown) (unknown) Sleep apnea () (unit s (unknown) date) unknown) (unknown) (no (unknown) (unknown) Smoking Status: (units (unknown) date) Former smoker unknown) (unknown) (no (unknown) (unknown) Social History (units (unknown) date) unknown) (unknown) (no (unknown) (unknown) Speech and (units (unk nown) date) Movement: speech and unknown) movement normal (unknown) (no (unknown) (unknown) Status post right (units (unknown) date) foot surgery () unknown) (unknown) (no (unknown) (unknown) Surgical History (units (unknown) date) (Reviewed 08/02/22 @ unknown) 05:44 by Rafael Mcgee MD) (unknown) (no (unknown) (unknown) Thought Content: (units (unknown) date) normal unknown) (unknown) (no (unknown) (unknown) Thought Process: (units (unknown) date) normal unknown) (unknown) (no (unknown) (unknown) Time Spent With (units (unknown) date) Patient unknown) (unknown) (no (unknown) (unknown) alcohol intake: (units (unknown) date) current unknown) (unknown) (no (unknown) (unknown) buprenorphine 8 (units (unknown) date) mg-naloxone 2 mg 1 unknown) film sublingual BID 01/03/22 08/15/22 History (unknown) (no (unknown) (unknown) bupropion HCl 300 (units (unknown) date) mg 24 hr tablet, 300 unknown) mg PO DAILY 01/03/22 08/15/22 History (unknown) (no (unknown) (unknown) by Nexplanon for (units (unknown) date) menstrual unknown) suppression who is admitted for Mirena IUD insertion (unknown) (no (unknown) (unknown) 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 The (units (unknown) date) Nexplanon was unknown) removed in-office on (unknown) (no (unknown) (unknown) oxycodone 5 mg (units (unknown) date) tablet 5 mg PO ONCE unknown) pain #1 tab 07/31/22 08/15/22 Rx (unknown) (no (unknown) (unknown) oxycodone 5 mg (units (unknown) date) tablet 5 mg PO Q12H unknown) PRN pain, severe #5 06/07/22 08/15/22 Rx (unknown) (no (unknown) (unknown) release (Cymbalta) (units (unknown) date) unknown) (unknown) (no (unknown) (unknown) sentences (units (unkn own) date) unknown) (unknown) (no (unknown) (unknown) sublingual film (units (unknown) date) (Suboxone) unknown) (unknown) (no (unknown) (unknown) tabs (units (unkno wn) date) unknown) (unknown) (no (unknown) (unknown) today; this time is (unit s (unknown) date) exclusive of unknown) procedural time. (unknown) (no (unknown) (unknown) trazodone 50 mg (units (unknown) date) tablet 50 mg PO unknown) BEDTIME PRN sleep 01/03/22 08/15/22 History Result panel 78 (unknown) (no (unknown) (unknown) (no value) (units (unk nown) date) unknown) (unknown) (no (unknown) (unknown) (1) Cervical (units (u nknown) date) stenosis (uterine unknown) cervix): (unknown) (no (unknown) (unknown) (2) Adenomyosis of (units (unknown) date) uterus: unknown) (unknown) (no (unknown) (unknown) ADHD (-1998) (units (u nknown) date) unknown) (unknown) (no (unknown) (unknown) Abdominal pain (units (unknown) date) unknown) (unknown) (no (unknown) (unknown) Abnormal Pap smear (units (unknown) date) of cervix unknown) (unknown) (no (unknown) (unknown) Abnormal chest xray (unit s (unknown) date) () unknown) (unknown) (no (unknown) (unknown) Affect: normal (units (unknown) date) affect unknown) (unknown) (no (unknown) (unknown) Age/Sex: 36 / F (units (unknown) date) unknown) (unknown) (no (unknown) (unknown) Allergies (units (unkn own) date) unknown) (unknown) (no (unknown) (unknown) Allergy/AdvReac (units (unknown) date) Type Severity unknown) Reaction Status Date / Time (unknown) (no (unknown) (unknown) Anesthesia (units (unk nown) date) unknown) (unknown) (no (unknown) (unknown) Anxiety (units (unkno wn) date) unknown) (unknown) (no (unknown) (unknown) Appearance: grossly (unit s (unknown) date) normal unknown) (unknown) (no (unknown) (unknown) Assessment + Plan (units (unknown) date) unknown) (unknown) (no (unknown) (unknown) Assessment and plan (unit s (unknown) date) unknown) (unknown) (no (unknown) (unknown) Asthma (units (unkno wn) date) unknown) (unknown) (no (unknown) (unknown) Attitude: (units (unkn own) date) cooperative unknown) (unknown) (no (unknown) (unknown) Auscultation: clear (unit s (unknown) date) to auscultation unknown) bilaterally (unknown) (no (unknown) (unknown) Cardio (units (unkno wn) date) unknown) (unknown) (no (unknown) (unknown) Carpal tunnel (units ( unknown) date) syndrome () unknown) (unknown) (no (unknown) (unknown) Cervical cancer (units (unknown) date) () unknown) (unknown) (no (unknown) (unknown) Zrgpbwp-Nqeos-Daytl (unit s (unknown) date) disease unknown) (unknown) (no (unknown) (unknown) Chlamydia () (units (unknown) date) unknown) (unknown) (no (unknown) (unknown) Chronic insomnia (units (unknown) date) unknown) (unknown) (no (unknown) (unknown) Chronic low back (units (unknown) date) pain () unknown) (unknown) (no (unknown) (unknown) Chronic, continuous (unit s (unknown) date) use of opioids unknown) (unknown) (no (unknown) (unknown) Conjunctivae: (units ( unknown) date) conjunctivae normal unknown) (unknown) (no (unknown) (unknown) Const (units (unkno wn) date) unknown) (unknown) (no (unknown) (unknown) Critical Care time: (unit s (unknown) date) unknown) (unknown) (no (unknown) (unknown) : 1985 (units (unknown) date) Acct:[id number] unknown) (unknown) (no (unknown) (unknown) Date of Service: (units (unknown) date) 08/23/22 unknown) (unknown) (no (unknown) (unknown) Depression (units (unk nown) date) unknown) (unknown) (no (unknown) (unknown) Diverticular (units (u nknown) date) disease () unknown) (unknown) (no (unknown) (unknown) EOM: EOM intact (units (unknown) date) bilaterally unknown) (unknown) (no (unknown) (unknown) Ears: hearing (units ( unknown) date) grossly normal unknown) bilaterally (unknown) (no (unknown) (unknown) Effort + (units (unkno wn) date) Inspection: normal unknown) respiratory effort and able to speak in complete (unknown) (no (unknown) (unknown) Exam (units (unkno wn) date) unknown) (unknown) (no (unknown) (unknown) Extrem (units (unkno wn) date) unknown) (unknown) (no (unknown) (unknown) Eyes (units (unkno wn) date) unknown) (unknown) (no (unknown) (unknown) Face and sinus: (units (unknown) date) face symmetric unknown) (unknown) (no (unknown) (unknown) Family History (units (unknown) date) (Reviewed 08/02/22 @ unknown) 05:44 by Rafael Mcgee MD) (unknown) (no (unknown) (unknown) Father History of (units (unknown) date) heart disease unknown) (unknown) (no (unknown) (unknown) Fibromyalgia (units (u nknown) date) (-2016) unknown) (unknown) (no (unknown) (unknown) GI (units (unkno wn) date) unknown) (unknown) (no (unknown) (unknown) General: appearance (unit s (unknown) date) normal, both eyes unknown) and all related structures (unknown) (no (unknown) (unknown) General: (units (unkno wn) date) cooperative and unknown) comfortable (unknown) (no (unknown) (unknown) General: no calf (units (unknown) date) tenderness unknown) (unknown) (no (unknown) (unknown) Gout (-2017) (units (u nknown) date) unknown) (unknown) (no (unknown) (unknown) H/O LEEP (units (unkno wn) date) unknown) (unknown) (no (unknown) (unknown) H/O laparoscopy (units (unknown) date) () unknown) (unknown) (no (unknown) (unknown) HENMT (units (unkno wn) date) unknown) (unknown) (no (unknown) (unknown) Head: normal to (units (unknown) date) inspection, unknown) atraumatic and abrasion (unknown) (no (unknown) (unknown) Heart Sounds: S1 (units (unknown) date) normal, S2 normal unknown) and no murmurs (unknown) (no (unknown) (unknown) Herpes () (units (unknown) date) unknown) (unknown) (no (unknown) (unknown) History of (units (unk nown) date) unknown) (-08/08/04) (unknown) (no (unknown) (unknown) History of Present (units (unknown) date) Illness unknown) (unknown) (no (unknown) (unknown) Home Medications (units (unknown) date) and Allergies unknown) (unknown) (no (unknown) (unknown) Home Medications (units (unknown) date) unknown) (unknown) (no (unknown) (unknown) Human papilloma (units (unknown) date) virus () unknown) (unknown) (no (unknown) (unknown) Hyperlipidemia (units (unknown) date) unknown) (unknown) (no (unknown) (unknown) Hypertension (units (u nknown) date) unknown) (unknown) (no (unknown) (unknown) I spent a total of (units (unknown) date) [] minutes of unknown) critical care time on this patient's care (unknown) (no (unknown) (unknown) Inspection: normal (units (unknown) date) to inspection unknown) (unknown) (no (unknown) (unknown) Irritable bowel (units (unknown) date) syndrome () unknown) (unknown) (no (unknown) (unknown) [facility] (units (unknown) date) [address] unknown) [place] [address] (unknown) (no (unknown) (unknown) Judgment: judgment (units (unknown) date) good unknown) (unknown) (no (unknown) (unknown) Left ovarian cyst (units (unknown) date) (-2021) unknown) (unknown) (no (unknown) (unknown) [id number] (units (unk nown) date) unknown) (unknown) (no (unknown) (unknown) Medical History (units (unknown) date) (Reviewed 08/02/22 @ unknown) 05:44 by Rafael Mcgee MD) (unknown) (no (unknown) (unknown) Medication (units (unk nown) date) Instructions unknown) Recorded Confirmed Type (unknown) (no (unknown) (unknown) Meds (units (unkno wn) date) unknown) (unknown) (no (unknown) (unknown) Mental Status: (units (unknown) date) mental status unknown) grossly normal (unknown) (no (unknown) (unknown) Mental health (units ( unknown) date) problem unknown) (unknown) (no (unknown) (unknown) Migraines (-2003) (units (unknown) date) unknown) (unknown) (no (unknown) (unknown) Mood: congruent (units (unknown) date) mood unknown) (unknown) (no (unknown) (unknown) Mother Diabetes (units (unknown) date) mellitus unknown) (unknown) (no (unknown) (unknown) Narrative: (units (unk nown) date) unknown) (unknown) (no (unknown) (unknown) Kenyetta Cornejo (units (unknown) date) is a 36 year old unknown) woman with adenomyosis most recently managed (unknown) (no (unknown) (unknown) Neck (units (unkno wn) date) unknown) (unknown) (no (unknown) (unknown) Neck: normal visual (unit s (unknown) date) inspection unknown) (unknown) (no (unknown) (unknown) No Known Drug (units ( unknown) date) Allergies Allergy unknown) Verified 08/15/22 14:43 (unknown) (no (unknown) (unknown) Nutritional (units (un known) date) Appearance: average unknown) body habitus (unknown) (no (unknown) (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 unknown) (unknown) (no (unknown) (unknown) Orientation: alert (units (unknown) date) and oriented x3 unknown) (unknown) (no (unknown) (unknown) PFSH (units (unkno wn) date) unknown) (unknown) (no (unknown) (unknown) Painful menstrual (units (unknown) date) periods unknown) (unknown) (no (unknown) (unknown) Palpation: soft and (unit s (unknown) date) no unknown) hepatosplenomegaly (unknown) (no (unknown) (unknown) Patient: (units (unkno wn) date) Kenyetta Cornejo B unknown) MR#: (unknown) (no (unknown) (unknown) Problem-specific (units (unknown) date) ROS positives unknown) included in HPI (unknown) (no (unknown) (unknown) Provider: (units (unkn own) date) Sivakumar Deleon MD unknown) (unknown) (no (unknown) (unknown) Psych (units (unkno wn) date) unknown) (unknown) (no (unknown) (unknown) Rate: regular rate (units (unknown) date) unknown) (unknown) (no (unknown) (unknown) Reason for (units (unk nown) date) admission: other unknown) (Adenomyosis, chronic pelvic pain) (unknown) (no (unknown) (unknown) Resp (units (unkno wn) date) unknown) (unknown) (no (unknown) (unknown) Review of Systems (units (unknown) date) unknown) (unknown) (no (unknown) (unknown) Rhythm: regular (units (unknown) date) rhythm unknown) (unknown) (no (unknown) (unknown) Sclera: sclerae (units (unknown) date) normal unknown) (unknown) (no (unknown) (unknown) Severe obesity (BMI (unit s (unknown) date) >= 40) unknown) (unknown) (no (unknown) (unknown) Shortness of breath (unit s (unknown) date) unknown) (unknown) (no (unknown) (unknown) Signed By: (units (unk nown) date) unknown) (unknown) (no (unknown) (unknown) Sleep apnea () (unit s (unknown) date) unknown) (unknown) (no (unknown) (unknown) Smoking Status: (units (unknown) date) Former smoker unknown) (unknown) (no (unknown) (unknown) Social History (units (unknown) date) unknown) (unknown) (no (unknown) (unknown) Speech and (units (unk nown) date) Movement: speech and unknown) movement normal (unknown) (no (unknown) (unknown) Status post right (units (unknown) date) foot surgery (-2000) unknown) (unknown) (no (unknown) (unknown) Status: Acute (units ( unknown) date) unknown) (unknown) (no (unknown) (unknown) Surgical History (units (unknown) date) (Reviewed 08/02/22 @ unknown) 05:44 by Rafael Mcgee MD) (unknown) (no (unknown) (unknown) Thought Content: (units (unknown) date) normal unknown) (unknown) (no (unknown) (unknown) Thought Process: (units (unknown) date) normal unknown) (unknown) (no (unknown) (unknown) Time Spent With (units (unknown) date) Patient unknown) (unknown) (no (unknown) (unknown) alcohol intake: (units (unknown) date) current unknown) (unknown) (no (unknown) (unknown) buprenorphine 8 (units (unknown) date) mg-naloxone 2 mg 1 unknown) film sublingual BID 01/03/22 08/15/22 History (unknown) (no (unknown) (unknown) bupropion HCl 300 (units (unknown) date) mg 24 hr tablet, 300 unknown) mg PO DAILY 01/03/22 08/15/22 History (unknown) (no (unknown) (unknown) by [facility] for (units (unknown) date) menstrual unknown) suppression who is admitted for Mirena IUD insertion (unknown) (no (unknown) (unknown) couldn't be (units (un known) date) inserted at the same unknown) visit due to cervical stenosis and patient (unknown) (no (unknown) (unknown) 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 She's (units (unknown) date) admitted now for her unknown) scheduled dilation and IUD insertion. (unknown) (no (unknown) (unknown) duloxetine 30 mg (units (unknown) date) capsule,delayed 30 unknown) mg PO BID 08/02/22 08/15/22 History (unknown) (no (unknown) (unknown) extended release (units (unknown) date) unknown) (unknown) (no (unknown) (unknown) household members: (units (unknown) date) family and children unknown) (unknown) (no (unknown) (unknown) in the OR due to (units (unknown) date) cervical stenosis unknown) and pain with attempted in-office IUD (unknown) (no (unknown) (unknown) insertion. The (units (unknown) date) Nexplanon was unknown) removed in-office on 08/15/2022 but the Mirena (unknown) (no (unknown) (unknown) oxycodone 5 mg (units (unknown) date) tablet 5 mg PO ONCE unknown) pain #1 tab 07/31/22 08/15/22 Rx (unknown) (no (unknown) (unknown) oxycodone 5 mg (units (unknown) date) tablet 5 mg PO Q12H unknown) PRN pain, severe #5 06/07/22 08/15/22 Rx (unknown) (no (unknown) (unknown) release (Cymbalta) (units (unknown) date) unknown) (unknown) (no (unknown) (unknown) sentences (units (unkn own) date) unknown) (unknown) (no (unknown) (unknown) sublingual film (units (unknown) date) (Suboxone) unknown) (unknown) (no (unknown) (unknown) tabs (units (unkno wn) date) unknown) (unknown) (no (unknown) (unknown) today; this time is (unit s (unknown) date) exclusive of unknown) procedural time. (unknown) (no (unknown) (unknown) trazodone 50 mg (units (unknown) date) tablet 50 mg PO unknown) BEDTIME PRN sleep 01/03/22 08/15/22 History Result panel 79 (unknown) (no (unknown) (unknown) (no value) (units (unk nown) date) unknown) (unknown) (no (unknown) (unknown) (1) Cervical (units (u nknown) date) stenosis (uterine unknown) cervix): (unknown) (no (unknown) (unknown) (2) Adenomyosis of (units (unknown) date) uterus: unknown) (unknown) (no (unknown) (unknown) ADHD (-1998) (units (u nknown) date) unknown) (unknown) (no (unknown) (unknown) Abdominal pain (units (unknown) date) unknown) (unknown) (no (unknown) (unknown) Abnormal Pap smear (units (unknown) date) of cervix unknown) (unknown) (no (unknown) (unknown) Abnormal chest xray (unit s (unknown) date) () unknown) (unknown) (no (unknown) (unknown) Affect: normal (units (unknown) date) affect unknown) (unknown) (no (unknown) (unknown) Age/Sex: 36 / F (units (unknown) date) unknown) (unknown) (no (unknown) (unknown) Allergies (units (unkn own) date) unknown) (unknown) (no (unknown) (unknown) Allergy/AdvReac (units (unknown) date) Type Severity unknown) Reaction Status Date / Time (unknown) (no (unknown) (unknown) Anesthesia (units (unk nown) date) unknown) (unknown) (no (unknown) (unknown) Anxiety (units (unkno wn) date) unknown) (unknown) (no (unknown) (unknown) Appearance: grossly (unit s (unknown) date) normal unknown) (unknown) (no (unknown) (unknown) Assessment + Plan (units (unknown) date) unknown) (unknown) (no (unknown) (unknown) Assessment and plan (unit s (unknown) date) unknown) (unknown) (no (unknown) (unknown) Asthma (units (unkno wn) date) unknown) (unknown) (no (unknown) (unknown) Attitude: (units (unkn own) date) cooperative unknown) (unknown) (no (unknown) (unknown) Auscultation: clear (unit s (unknown) date) to auscultation unknown) bilaterally (unknown) (no (unknown) (unknown) Cardio (units (unkno wn) date) unknown) (unknown) (no (unknown) (unknown) Carpal tunnel (units ( unknown) date) syndrome () unknown) (unknown) (no (unknown) (unknown) Cervical cancer (units (unknown) date) (-2002) unknown) (unknown) (no (unknown) (unknown) [id number]-[id number] (unit s (unknown) date) disease unknown) (unknown) (no (unknown) (unknown) Chlamydia (-2014) (units (unknown) date) unknown) (unknown) (no (unknown) (unknown) Chronic insomnia (units (unknown) date) unknown) (unknown) (no (unknown) (unknown) Chronic low back (units (unknown) date) pain () unknown) (unknown) (no (unknown) (unknown) Chronic, continuous (unit s (unknown) date) use of opioids unknown) (unknown) (no (unknown) (unknown) Conjunctivae: (units ( unknown) date) conjunctivae normal unknown) (unknown) (no (unknown) (unknown) Const (units (unkno wn) date) unknown) (unknown) (no (unknown) (unknown) Critical Care time: (unit s (unknown) date) unknown) (unknown) (no (unknown) (unknown) : 1985 (units (unknown) date) Acct:[id number] unknown) (unknown) (no (unknown) (unknown) Date of Service: (units (unknown) date) 08/23/22 unknown) (unknown) (no (unknown) (unknown) Depression (units (unk nown) date) unknown) (unknown) (no (unknown) (unknown) Diverticular (units (u nknown) date) disease () unknown) (unknown) (no (unknown) (unknown) EOM: EOM intact (units (unknown) date) bilaterally unknown) (unknown) (no (unknown) (unknown) Ears: hearing (units ( unknown) date) grossly normal unknown) bilaterally (unknown) (no (unknown) (unknown) Effort + (units (unkno wn) date) Inspection: normal unknown) respiratory effort and able to speak in complete (unknown) (no (unknown) (unknown) Exam (units (unkno wn) date) unknown) (unknown) (no (unknown) (unknown) Extrem (units (unkno wn) date) unknown) (unknown) (no (unknown) (unknown) Eyes (units (unkno wn) date) unknown) (unknown) (no (unknown) (unknown) Face and sinus: (units (unknown) date) face symmetric unknown) (unknown) (no (unknown) (unknown) Family History (units (unknown) date) (Reviewed 08/02/22 @ unknown) 05:44 by Rafael Mcgee MD) (unknown) (no (unknown) (unknown) Father History of (units (unknown) date) heart disease unknown) (unknown) (no (unknown) (unknown) Fibromyalgia (units (u nknown) date) () unknown) (unknown) (no (unknown) (unknown) GI (units (unkno wn) date) unknown) (unknown) (no (unknown) (unknown) General: appearance (unit s (unknown) date) normal, both eyes unknown) and all related structures (unknown) (no (unknown) (unknown) General: (units (unkno wn) date) cooperative and unknown) comfortable (unknown) (no (unknown) (unknown) General: no calf (units (unknown) date) tenderness unknown) (unknown) (no (unknown) (unknown) Gout (-2016) (units (u nknown) date) unknown) (unknown) (no (unknown) (unknown) H/O LEEP (units (unkno wn) date) unknown) (unknown) (no (unknown) (unknown) H/O laparoscopy (units (unknown) date) () unknown) (unknown) (no (unknown) (unknown) HENMT (units (unkno wn) date) unknown) (unknown) (no (unknown) (unknown) Head: normal to (units (unknown) date) inspection, unknown) atraumatic and abrasion (unknown) (no (unknown) (unknown) Heart Sounds: S1 (units (unknown) date) normal, S2 normal unknown) and no murmurs (unknown) (no (unknown) (unknown) Herpes () (units (unknown) date) unknown) (unknown) (no (unknown) (unknown) History of (units (unk nown) date) unknown) (-08/08/04) (unknown) (no (unknown) (unknown) History of Present (units (unknown) date) Illness unknown) (unknown) (no (unknown) (unknown) Home Medications (units (unknown) date) and Allergies unknown) (unknown) (no (unknown) (unknown) Home Medications (units (unknown) date) unknown) (unknown) (no (unknown) (unknown) Human papilloma (units (unknown) date) virus (-2002) unknown) (unknown) (no (unknown) (unknown) Hyperlipidemia (units (unknown) date) unknown) (unknown) (no (unknown) (unknown) Hypertension (units (u nknown) date) unknown) (unknown) (no (unknown) (unknown) I spent a total of (units (unknown) date) [] minutes of unknown) critical care time on this patient's care (unknown) (no (unknown) (unknown) Inspection: normal (units (unknown) date) to inspection unknown) (unknown) (no (unknown) (unknown) Irritable bowel (units (unknown) date) syndrome () unknown) (unknown) (no (unknown) (unknown) [facility] (units (unknown) date) [address] [place] [address] Street unknown) [place] [address] (unknown) (no (unknown) (unknown) Judgment: judgment (units (unknown) date) good unknown) (unknown) (no (unknown) (unknown) Left ovarian cyst (units (unknown) date) () unknown) (unknown) (no (unknown) (unknown) [id number] (units (unk nown) date) unknown) (unknown) (no (unknown) (unknown) Medical History (units (unknown) date) (Reviewed 08/02/22 @ unknown) 05:44 by Rafael Mcgee MD) (unknown) (no (unknown) (unknown) Medication (units (unk nown) date) Instructions unknown) Recorded Confirmed Type (unknown) (no (unknown) (unknown) Meds (units (unkno wn) date) unknown) (unknown) (no (unknown) (unknown) Mental Status: (units (unknown) date) mental status unknown) grossly normal (unknown) (no (unknown) (unknown) Mental health (units ( unknown) date) problem unknown) (unknown) (no (unknown) (unknown) Migraines (-2003) (units (unknown) date) unknown) (unknown) (no (unknown) (unknown) Mood: congruent (units (unknown) date) mood unknown) (unknown) (no (unknown) (unknown) Mother Diabetes (units (unknown) date) mellitus unknown) (unknown) (no (unknown) (unknown) Narrative: (units (unk nown) date) unknown) (unknown) (no (unknown) (unknown) Kenyetta Cornejo (units (unknown) date) is a 36 year old unknown) woman with adenomyosis most recently managed (unknown) (no (unknown) (unknown) Neck (units (unkno wn) date) unknown) (unknown) (no (unknown) (unknown) Neck: normal visual (unit s (unknown) date) inspection unknown) (unknown) (no (unknown) (unknown) No Known Drug (units ( unknown) date) Allergies Allergy unknown) Verified 08/15/22 14:43 (unknown) (no (unknown) (unknown) Nutritional (units (un known) date) Appearance: average unknown) body habitus (unknown) (no (unknown) (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 unknown) (unknown) (no (unknown) (unknown) Orientation: alert (units (unknown) date) and oriented x3 unknown) (unknown) (no (unknown) (unknown) PFSH (units (unkno wn) date) unknown) (unknown) (no (unknown) (unknown) Painful menstrual (units (unknown) date) periods unknown) (unknown) (no (unknown) (unknown) Palpation: soft and (unit s (unknown) date) no unknown) hepatosplenomegaly (unknown) (no (unknown) (unknown) Patient counseled (units (unknown) date) regarding unknown) alternatives, risks, benefits, and potential (unknown) (no (unknown) (unknown) Patient: (units (unkno wn) date) Kenyetta Cornejo unknown) MR#: (unknown) (no (unknown) (unknown) Plan (units (unkno wn) date) unknown) (unknown) (no (unknown) (unknown) Problem-specific (units (unknown) date) ROS positives unknown) included in HPI (unknown) (no (unknown) (unknown) Provider: (units (unkn own) date) Sivakumar Deleon MD unknown) (unknown) (no (unknown) (unknown) Psych (units (unkno wn) date) unknown) (unknown) (no (unknown) (unknown) Rate: regular rate (units (unknown) date) unknown) (unknown) (no (unknown) (unknown) Reason for (units (unk nown) date) admission: other unknown) (Adenomyosis, chronic pelvic pain) (unknown) (no (unknown) (unknown) Resp (units (unkno wn) date) unknown) (unknown) (no (unknown) (unknown) Review of Systems (units (unknown) date) unknown) (unknown) (no (unknown) (unknown) Rhythm: regular (units (unknown) date) rhythm unknown) (unknown) (no (unknown) (unknown) Sclera: sclerae (units (unknown) date) normal unknown) (unknown) (no (unknown) (unknown) Severe obesity (BMI (unit s (unknown) date) >= 40) unknown) (unknown) (no (unknown) (unknown) Shortness of breath (unit s (unknown) date) unknown) (unknown) (no (unknown) (unknown) Signed By: (units (unk nown) date) unknown) (unknown) (no (unknown) (unknown) Sleep apnea () (unit s (unknown) date) unknown) (unknown) (no (unknown) (unknown) Smoking Status: (units (unknown) date) Former smoker unknown) (unknown) (no (unknown) (unknown) Social History (units (unknown) date) unknown) (unknown) (no (unknown) (unknown) Speech and (units (unk nown) date) Movement: speech and unknown) movement normal (unknown) (no (unknown) (unknown) Status post right (units (unknown) date) foot surgery () unknown) (unknown) (no (unknown) (unknown) Status: Acute (units ( unknown) date) unknown) (unknown) (no (unknown) (unknown) Surgical History (units (unknown) date) (Reviewed 08/02/22 @ unknown) 05:44 by Rafael Mcgee MD) (unknown) (no (unknown) (unknown) Thought Content: (units (unknown) date) normal unknown) (unknown) (no (unknown) (unknown) Thought Process: (units (unknown) date) normal unknown) (unknown) (no (unknown) (unknown) Time Spent With (units (unknown) date) Patient unknown) (unknown) (no (unknown) (unknown) Time with patient: (units (unknown) date) less than 30 minutes unknown) (unknown) (no (unknown) (unknown) With full (units (unkn own) date) understanding of the unknown) above, a written consent was executed, signed, (unknown) (no (unknown) (unknown) alcohol intake: (units (unknown) date) current unknown) (unknown) (no (unknown) (unknown) and witnessed this (units (unknown) date) date. unknown) (unknown) (no (unknown) (unknown) buprenorphine 8 (units (unknown) date) mg-naloxone 2 mg 1 unknown) film sublingual BID 01/03/22 08/15/22 History (unknown) (no (unknown) (unknown) bupropion HCl 300 (units (unknown) date) mg 24 hr tablet, 300 unknown) mg PO DAILY 01/03/22 08/15/22 History (unknown) (no (unknown) (unknown) by Nexplanon for (units (unknown) date) menstrual unknown) suppression who is admitted for Mirena IUD insertion (unknown) (no (unknown) (unknown) complications (units ( unknown) date) associated with unknown) cervical dilation and insertion of Mirena IUD. 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 She's (units (unknown) date) admitted now for her unknown) scheduled dilation and IUD insertion. (unknown) (no (unknown) (unknown) duloxetine 30 mg (units (unknown) date) capsule,delayed 30 unknown) mg PO BID 08/02/22 08/15/22 History (unknown) (no (unknown) (unknown) extended release (units (unknown) date) unknown) (unknown) (no (unknown) (unknown) household members: (units (unknown) date) family and children unknown) (unknown) (no (unknown) (unknown) in the OR due to (units (unknown) date) cervical stenosis unknown) and pain with attempted in-office IUD (unknown) (no (unknown) (unknown) insertion. The (units (unknown) date) Nexplanon was unknown) removed in-office on 08/15/2022 but the Mirena (unknown) (no (unknown) (unknown) oxycodone 5 mg (units (unknown) date) tablet 5 mg PO ONCE unknown) pain #1 tab 07/31/22 08/15/22 Rx (unknown) (no (unknown) (unknown) oxycodone 5 mg (units (unknown) date) tablet 5 mg PO Q12H unknown) PRN pain, severe #5 06/07/22 08/15/22 Rx (unknown) (no (unknown) (unknown) release (Cymbalta) (units (unknown) date) unknown) (unknown) (no (unknown) (unknown) sentences (units (unkn own) date) unknown) (unknown) (no (unknown) (unknown) sublingual film (units (unknown) date) (Suboxone) unknown) (unknown) (no (unknown) (unknown) tabs (units (unkno wn) date) unknown) (unknown) (no (unknown) (unknown) today; this time is (unit s (unknown) date) exclusive of unknown) procedural time. (unknown) (no (unknown) (unknown) trazodone 50 mg (units (unknown) date) tablet 50 mg PO unknown) BEDTIME PRN sleep 01/03/22 08/15/22 History Result panel 80 (unknown) (no (unknown) (unknown) (no value) (units (unk nown) date) unknown) (unknown) (no (unknown) (unknown) 08/30/22 1417 (units ( unknown) date) unknown) (unknown) (no (unknown) (unknown) Age/Sex: 36 / F (units (unknown) date) unknown) (unknown) (no (unknown) (unknown) COVID-19 (units (unkno wn) date) status: Not unknown) tested (unknown) (no (unknown) (unknown) COVID-19 (units (unkno wn) date) unknown) (unknown) (no (unknown) (unknown) Changes to H+P: (units (unknown) date) No unknown) (unknown) (no (unknown) (unknown) Criteria for (units (u nknown) date) continued unknown) procedure: Non-surgical alternatives not available or (unknown) (no (unknown) (unknown) : 1985 (units (unknown) date) Acct:[id number] unknown) (unknown) (no (unknown) (unknown) Date of (units (unkno wn) date) Service: unknown) 08/23/22 (unknown) (no (unknown) (unknown) History + (units (unkn own) date) Physical unknown) reviewed/Exam performed by Physician: Yes (unknown) (no (unknown) (unknown) Interval Note (units ( unknown) date) unknown) (unknown) (no (unknown) (unknown) [facility] (units (unknown) date) [address] unknown) [place] [address] (unknown) (no (unknown) (unknown) [id number] (units (unk nown) date) unknown) (unknown) (no (unknown) (unknown) Patient: (units (unkno wn) date) Kenyetta Cornejo unknown) B MR#: (unknown) (no (unknown) (unknown) Pre-operative (units ( unknown) date) Note unknown) (unknown) (no (unknown) (unknown) Provider: (units (unkn own) date) Sivakumar Deleon unknown) (unknown) (no (unknown) (unknown) Signed (units (unkno wn) date) By:<Electronical unknown) ly signed by Sivakumar Deleon MD> (unknown) (no (unknown) (unknown) appropriate per (units (unknown) date) current SOC unknown) Result panel 81 (unknown) (no (unknown) (unknown) (no value) (units (unk nown) date) unknown) (unknown) (no (unknown) (unknown) (1) Cervical (units (u nknown) date) stenosis (uterine unknown) cervix): (unknown) (no (unknown) (unknown) (2) Adenomyosis of (units (unknown) date) uterus: unknown) (unknown) (no (unknown) (unknown) 08/30/22 1600 (units ( unknown) date) unknown) (unknown) (no (unknown) (unknown) ADHD (-1998) (units (u nknown) date) unknown) (unknown) (no (unknown) (unknown) Abdominal pain (units (unknown) date) unknown) (unknown) (no (unknown) (unknown) Abnormal Pap smear (units (unknown) date) of cervix unknown) (unknown) (no (unknown) (unknown) Abnormal chest xray (unit s (unknown) date) () unknown) (unknown) (no (unknown) (unknown) Affect: normal (units (unknown) date) affect unknown) (unknown) (no (unknown) (unknown) Age/Sex: 36 / F (units (unknown) date) unknown) (unknown) (no (unknown) (unknown) Allergies (units (unkn own) date) unknown) (unknown) (no (unknown) (unknown) Allergy/AdvReac (units (unknown) date) Type Severity unknown) Reaction Status Date / Time (unknown) (no (unknown) (unknown) Anesthesia (units (unk nown) date) unknown) (unknown) (no (unknown) (unknown) Anxiety (units (unkno wn) date) unknown) (unknown) (no (unknown) (unknown) Appearance: grossly (unit s (unknown) date) normal unknown) (unknown) (no (unknown) (unknown) Assessment + Plan (units (unknown) date) unknown) (unknown) (no (unknown) (unknown) Assessment and plan (unit s (unknown) date) unknown) (unknown) (no (unknown) (unknown) Asthma (units (unkno wn) date) unknown) (unknown) (no (unknown) (unknown) Attitude: (units (unkn own) date) cooperative unknown) (unknown) (no (unknown) (unknown) Auscultation: clear (unit s (unknown) date) to auscultation unknown) bilaterally (unknown) (no (unknown) (unknown) Cardio (units (unkno wn) date) unknown) (unknown) (no (unknown) (unknown) Carpal tunnel (units ( unknown) date) syndrome () unknown) (unknown) (no (unknown) (unknown) Cervical cancer (units (unknown) date) () unknown) (unknown) (no (unknown) (unknown) [id number]-Bcfkq-Rawdu (unit s (unknown) date) disease unknown) (unknown) (no (unknown) (unknown) Chlamydia () (units (unknown) date) unknown) (unknown) (no (unknown) (unknown) Chronic insomnia (units (unknown) date) unknown) (unknown) (no (unknown) (unknown) Chronic low back (units (unknown) date) pain (-2015) unknown) (unknown) (no (unknown) (unknown) Chronic, continuous (unit s (unknown) date) use of opioids unknown) (unknown) (no (unknown) (unknown) Conjunctivae: (units ( unknown) date) conjunctivae normal unknown) (unknown) (no (unknown) (unknown) Const (units (unkno wn) date) unknown) (unknown) (no (unknown) (unknown) : 1985 (units (unknown) date) Acct:[id number] unknown) (unknown) (no (unknown) (unknown) Date of Service: (units (unknown) date) 08/30/22 unknown) (unknown) (no (unknown) (unknown) Depression (units (unk nown) date) unknown) (unknown) (no (unknown) (unknown) Diverticular (units (u nknown) date) disease () unknown) (unknown) (no (unknown) (unknown) EOM: EOM intact (units (unknown) date) bilaterally unknown) (unknown) (no (unknown) (unknown) Ears: hearing (units ( unknown) date) grossly normal unknown) bilaterally (unknown) (no (unknown) (unknown) Effort + (units (unkno wn) date) Inspection: normal unknown) respiratory effort and able to speak in complete (unknown) (no (unknown) (unknown) Exam (units (unkno wn) date) unknown) (unknown) (no (unknown) (unknown) Extrem (units (unkno wn) date) unknown) (unknown) (no (unknown) (unknown) Eyes (units (unkno wn) date) unknown) (unknown) (no (unknown) (unknown) Face and sinus: (units (unknown) date) face symmetric unknown) (unknown) (no (unknown) (unknown) Family History (units (unknown) date) (Reviewed 08/02/22 @ unknown) 05:44 by Rafael Mcgee MD) (unknown) (no (unknown) (unknown) Father History of (units (unknown) date) heart disease unknown) (unknown) (no (unknown) (unknown) Fibromyalgia (units (u nknown) date) (-2015) unknown) (unknown) (no (unknown) (unknown) GI (units (unkno wn) date) unknown) (unknown) (no (unknown) (unknown) General: appearance (unit s (unknown) date) normal, both eyes unknown) and all related structures (unknown) (no (unknown) (unknown) General: (units (unkno wn) date) cooperative and unknown) comfortable (unknown) (no (unknown) (unknown) General: no calf (units (unknown) date) tenderness unknown) (unknown) (no (unknown) (unknown) Gout (-2016) (units (u nknown) date) unknown) (unknown) (no (unknown) (unknown) H/O LEEP (units (unkno wn) date) unknown) (unknown) (no (unknown) (unknown) H/O laparoscopy (units (unknown) date) () unknown) (unknown) (no (unknown) (unknown) HENMT (units (unkno wn) date) unknown) (unknown) (no (unknown) (unknown) Head: normal to (units (unknown) date) inspection, unknown) atraumatic and abrasion (unknown) (no (unknown) (unknown) Heart Sounds: S1 (units (unknown) date) normal, S2 normal unknown) and no murmurs (unknown) (no (unknown) (unknown) Herpes () (units (unknown) date) unknown) (unknown) (no (unknown) (unknown) History of (units (unk nown) date) unknown) (-08/08/04) (unknown) (no (unknown) (unknown) History of Present (units (unknown) date) Illness unknown) (unknown) (no (unknown) (unknown) Home Medications (units (unknown) date) and Allergies unknown) (unknown) (no (unknown) (unknown) Home Medications (units (unknown) date) unknown) (unknown) (no (unknown) (unknown) Human papilloma (units (unknown) date) virus (-2002) unknown) (unknown) (no (unknown) (unknown) Hyperlipidemia (units (unknown) date) unknown) (unknown) (no (unknown) (unknown) Hypertension (units (u nknown) date) unknown) (unknown) (no (unknown) (unknown) Inspection: normal (units (unknown) date) to inspection unknown) (unknown) (no (unknown) (unknown) Irritable bowel (units (unknown) date) syndrome (-2009) unknown) (unknown) (no (unknown) (unknown) [facility] (units (unknown) date) [address] unknown) [place] [address] (unknown) (no (unknown) (unknown) Judgment: judgment (units (unknown) date) good unknown) (unknown) (no (unknown) (unknown) Left ovarian cyst (units (unknown) date) () unknown) (unknown) (no (unknown) (unknown) [id number] (units (unk nown) date) unknown) (unknown) (no (unknown) (unknown) Medical History (units (unknown) date) (Reviewed 08/02/22 @ unknown) 05:44 by Rafael Mcgee MD) (unknown) (no (unknown) (unknown) Medication (units (unk nown) date) Instructions unknown) Recorded Confirmed Type (unknown) (no (unknown) (unknown) Meds (units (unkno wn) date) unknown) (unknown) (no (unknown) (unknown) Mental Status: (units (unknown) date) mental status unknown) grossly normal (unknown) (no (unknown) (unknown) Mental health (units ( unknown) date) problem unknown) (unknown) (no (unknown) (unknown) Migraines (-2003) (units (unknown) date) unknown) (unknown) (no (unknown) (unknown) Mood: congruent (units (unknown) date) mood unknown) (unknown) (no (unknown) (unknown) Mother Diabetes (units (unknown) date) mellitus unknown) (unknown) (no (unknown) (unknown) Narrative: (units (unk nown) date) unknown) (unknown) (no (unknown) (unknown) Kenyetta Cornejo (units (unknown) date) is a 36 year old unknown) woman with adenomyosis most recently managed (unknown) (no (unknown) (unknown) Neck (units (unkno wn) date) unknown) (unknown) (no (unknown) (unknown) Neck: normal visual (unit s (unknown) date) inspection unknown) (unknown) (no (unknown) (unknown) No Known Drug (units ( unknown) date) Allergies Allergy unknown) Verified 08/30/22 15:45 (unknown) (no (unknown) (unknown) Nutritional (units (un known) date) Appearance: average unknown) body habitus (unknown) (no (unknown) (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 unknown) (unknown) (no (unknown) (unknown) Orientation: alert (units (unknown) date) and oriented x3 unknown) (unknown) (no (unknown) (unknown) PFSH (units (unkno wn) date) unknown) (unknown) (no (unknown) (unknown) Painful menstrual (units (unknown) date) periods unknown) (unknown) (no (unknown) (unknown) Palpation: soft and (unit s (unknown) date) no unknown) hepatosplenomegaly (unknown) (no (unknown) (unknown) Patient counseled (units (unknown) date) regarding unknown) alternatives, risks, benefits, and potential (unknown) (no (unknown) (unknown) Patient: (units (unkno wn) date) Kenyetta Cornejo Bria unknown) MR#: (unknown) (no (unknown) (unknown) Plan (units (unkno wn) date) unknown) (unknown) (no (unknown) (unknown) Problem-specific (units (unknown) date) ROS positives unknown) included in HPI (unknown) (no (unknown) (unknown) Provider: (units (unkn own) date) Sivakumar Deleon MD unknown) (unknown) (no (unknown) (unknown) Psych (units (unkno wn) date) unknown) (unknown) (no (unknown) (unknown) Rate: regular rate (units (unknown) date) unknown) (unknown) (no (unknown) (unknown) Reason for (units (unk nown) date) admission: other unknown) (Adenomyosis, chronic pelvic pain) (unknown) (no (unknown) (unknown) Resp (units (unkno wn) date) unknown) (unknown) (no (unknown) (unknown) Review of Systems (units (unknown) date) unknown) (unknown) (no (unknown) (unknown) Rhythm: regular (units (unknown) date) rhythm unknown) (unknown) (no (unknown) (unknown) Sclera: sclerae (units (unknown) date) normal unknown) (unknown) (no (unknown) (unknown) Severe obesity (BMI (unit s (unknown) date) >= 40) unknown) (unknown) (no (unknown) (unknown) Shortness of breath (unit s (unknown) date) unknown) (unknown) (no (unknown) (unknown) Signed (units (unkno wn) date) By:<Electronically unknown) signed by Sivakumar Deleon MD> (unknown) (no (unknown) (unknown) Sleep apnea () (unit s (unknown) date) unknown) (unknown) (no (unknown) (unknown) Smoking Status: (units (unknown) date) Former smoker unknown) (unknown) (no (unknown) (unknown) Social History (units (unknown) date) unknown) (unknown) (no (unknown) (unknown) Speech and (units (unk nown) date) Movement: speech and unknown) movement normal (unknown) (no (unknown) (unknown) Status post right (units (unknown) date) foot surgery () unknown) (unknown) (no (unknown) (unknown) Status: Acute (units ( unknown) date) unknown) (unknown) (no (unknown) (unknown) Surgical History (units (unknown) date) (Reviewed 08/02/22 @ unknown) 05:44 by Rafael Mcgee MD) (unknown) (no (unknown) (unknown) Thought Content: (units (unknown) date) normal unknown) (unknown) (no (unknown) (unknown) Thought Process: (units (unknown) date) normal unknown) (unknown) (no (unknown) (unknown) Time Spent With (units (unknown) date) Patient unknown) (unknown) (no (unknown) (unknown) Time with patient: (units (unknown) date) less than 30 minutes unknown) (unknown) (no (unknown) (unknown) With full (units (unkn own) date) understanding of the unknown) above, a written consent was executed, signed, (unknown) (no (unknown) (unknown) alcohol intake: (units (unknown) date) current unknown) (unknown) (no (unknown) (unknown) and witnessed this (units (unknown) date) date. unknown) (unknown) (no (unknown) (unknown) buprenorphine 8 (units (unknown) date) mg-naloxone 2 mg 1 unknown) film sublingual BID 01/03/22 08/15/22 History (unknown) (no (unknown) (unknown) bupropion HCl 300 (units (unknown) date) mg 24 hr tablet, 300 unknown) mg PO DAILY 01/03/22 08/15/22 History (unknown) (no (unknown) (unknown) by Nexplanon for (units (unknown) date) menstrual unknown) suppression who is admitted for Mirena IUD insertion (unknown) (no (unknown) (unknown) complications (units ( unknown) date) associated with unknown) cervical dilation and insertion of Mirena IUD. 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 She's (units (unknown) date) admitted now for her unknown) scheduled dilation and IUD insertion. (unknown) (no (unknown) (unknown) duloxetine 30 mg (units (unknown) date) capsule,delayed 30 unknown) mg PO BID 08/02/22 08/15/22 History (unknown) (no (unknown) (unknown) extended release (units (unknown) date) unknown) (unknown) (no (unknown) (unknown) household members: (units (unknown) date) family and children unknown) (unknown) (no (unknown) (unknown) in the OR due to (units (unknown) date) cervical stenosis unknown) and pain with attempted in-office IUD (unknown) (no (unknown) (unknown) insertion. The (units (unknown) date) Nexplanon was unknown) removed in-office on 08/15/2022 but the Mirena (unknown) (no (unknown) (unknown) oxycodone 5 mg (units (unknown) date) tablet 5 mg PO ONCE unknown) pain #1 tab 07/31/22 08/15/22 Rx (unknown) (no (unknown) (unknown) oxycodone 5 mg (units (unknown) date) tablet 5 mg PO Q12H unknown) PRN pain, severe #5 06/07/22 08/15/22 Rx (unknown) (no (unknown) (unknown) release (Cymbalta) (units (unknown) date) unknown) (unknown) (no (unknown) (unknown) sentences (units (unkn own) date) unknown) (unknown) (no (unknown) (unknown) sublingual film (units (unknown) date) (Suboxone) unknown) (unknown) (no (unknown) (unknown) tabs (units (unkno wn) date) unknown) (unknown) (no (unknown) (unknown) trazodone 50 mg (units (unknown) date) tablet 50 mg PO unknown) BEDTIME PRN sleep 01/03/22 08/15/22 History Result panel 82 (unknown) (no date) (unknown) (unknown) (no value) (units (un known) unknown) (unknown) (no date) (unknown) (unknown) Actual (units (unkn own) Procedure Side unknown) Surgeon (unknown) (no date) (unknown) (unknown) Adenomyosis (units (u nknown) unknown) (unknown) (no date) (unknown) (unknown) Age/Sex: 36 / (units (unknown) F unknown) (unknown) (no date) (unknown) (unknown) : (units (unkn own) 1985 unknown) Acct:[id number] (unknown) (no date) (unknown) (unknown) Date of (units (unkn own) Service: unknown) 08/30/22 (unknown) (no date) (unknown) (unknown) Date of (units (unkn own) procedure: unknown) 08/30/22 (unknown) (no date) (unknown) (unknown) [place] (units (unkn own) [place] [id number] unknown) [address] [place] [id number] (unknown) (no date) (unknown) (unknown) [id number] (units (un known) unknown) (unknown) (no date) (unknown) (unknown) Operation (units (unk nown) Date: 08/30/22 unknown) 15:15 (unknown) (no date) (unknown) (unknown) Operative (units (unk nown) Date/Time/Diagn unknown) oses (unknown) (no date) (unknown) (unknown) Operative Note (units (unknown) unknown) (unknown) (no date) (unknown) (unknown) Patient: (units (unkn own) Carmelita Cornejo unknown) a B MR#: (unknown) (no date) (unknown) (unknown) Post-op (units (unkn own) diagnosis: same unknown) (unknown) (no date) (unknown) (unknown) Pre-op (units (unkn own) diagnosis: unknown) Cervical stenosis (unknown) (no date) (unknown) (unknown) Procedure + (units (u nknown) Clinicians unknown) (unknown) (no date) (unknown) (unknown) Procedure: (units (un known) unknown) (unknown) (no date) (unknown) (unknown) Procedures (units (un known) unknown) (unknown) (no date) (unknown) (unknown) Provider: (units (unk nown) Sivakumar Deleon unknown) (unknown) (no date) (unknown) (unknown) Signed By: (units (un known) unknown) (unknown) (no date) (unknown) (unknown) Time of (units (unkn own) procedure: unknown) 16:20 (unknown) (no date) (unknown) (unknown) p Dilation of (units (unknown) uterine cervix unknown) Sivakumar Deleon MD (unknown) (no date) (unknown) (unknown) s Insertion of (units (unknown) Mirena IUD unknown) Sivakumar Deleon MD Result panel 83 (unknown) (no (unknown) (unknown) (no value) (units (unk nown) date) unknown) (unknown) (no (unknown) (unknown) 08/30/22 1641 (units ( unknown) date) unknown) (unknown) (no (unknown) (unknown) 10 cc TV) (units (unkn own) date) unknown) (unknown) (no (unknown) (unknown) Actual Procedure (units (unknown) date) Side Surgeon unknown) (unknown) (no (unknown) (unknown) Adenomyosis (units (un known) date) unknown) (unknown) (no (unknown) (unknown) Age/Sex: 36 / F (units (unknown) date) unknown) (unknown) (no (unknown) (unknown) Anesthesia Type: (units (unknown) date) Sedation and unknown) Other (Paracervical block (.25% Marcaine w/o epi), (unknown) (no (unknown) (unknown) Blood products (units (unknown) date) transfused: none unknown) (unknown) (no (unknown) (unknown) Cervical (units (unkno wn) date) stenosis. Uterine unknown) cavity sounds to 8 cm in the mid-plane (unknown) (no (unknown) (unknown) Closure Type: (units ( unknown) date) not applicable unknown) (unknown) (no (unknown) (unknown) Complications: (units (unknown) date) none unknown) (unknown) (no (unknown) (unknown) Condition: (units (unk nown) date) stable unknown) (unknown) (no (unknown) (unknown) : 1985 (units (unknown) date) Acct:[id number] unknown) (unknown) (no (unknown) (unknown) Date of Service: (units (unknown) date) 08/30/22 unknown) (unknown) (no (unknown) (unknown) Date of (units (unkno wn) date) procedure: unknown) 08/30/22 (unknown) (no (unknown) (unknown) Disposition: (units (u nknown) date) PACU unknown) (unknown) (no (unknown) (unknown) Estimated blood (units (unknown) date) loss (mL): 0 unknown) (unknown) (no (unknown) (unknown) Findings: (units (unkn own) date) unknown) (unknown) (no (unknown) (unknown) Hegar dilators. (units (unknown) date) The Mirena IUD unknown) insertion device was then introduced through the (unknown) (no (unknown) (unknown) Indications: (units (u nknown) date) unknown) (unknown) (no (unknown) (unknown) [facility] (units (unknown) date) [address] unknown) [place] [address] (unknown) (no (unknown) (unknown) [id number] (units (unk nown) date) unknown) (unknown) (no (unknown) (unknown) Kenyetta B (units (unkno wn) date) Clemente is a 36 unknown) year old woman with adenomyosis most recently managed (unknown) (no (unknown) (unknown) Operation Date: (units (unknown) date) 08/30/22 15:15 unknown) (unknown) (no (unknown) (unknown) Operative (units (unkn own) date) Date/Time/Diagnos unknown) es (unknown) (no (unknown) (unknown) Operative Note (units (unknown) date) unknown) (unknown) (no (unknown) (unknown) Operative Notes (units (unknown) date) unknown) (unknown) (no (unknown) (unknown) Patient: (units (unkno wn) date) Kenyetta Cornejo unknown) B MR#: (unknown) (no (unknown) (unknown) Plan for (units (unkno wn) date) aftercare: unknown) (unknown) (no (unknown) (unknown) Post-op (units (unkno wn) date) diagnosis: same unknown) (unknown) (no (unknown) (unknown) Post-operative (units (unknown) date) unknown) (unknown) (no (unknown) (unknown) Pre-op (units (unkno wn) date) diagnosis: unknown) Cervical stenosis (unknown) (no (unknown) (unknown) Procedure + (units (un known) date) Clinicians unknown) (unknown) (no (unknown) (unknown) Procedure in (units (u nknown) date) detail: unknown) (unknown) (no (unknown) (unknown) Procedure: (units (unk nown) date) unknown) (unknown) (no (unknown) (unknown) Procedures (units (unk nown) date) unknown) (unknown) (no (unknown) (unknown) Provider: (units (unkn own) date) Sivakumar Deleon unknown) (unknown) (no (unknown) (unknown) Routine (units (unkno wn) date) postoperative unknown) care. (unknown) (no (unknown) (unknown) Signed (units (unkno wn) date) By:<Electronicall unknown) y signed by Sivakumar Deleon MD> (unknown) (no (unknown) (unknown) Specimen(s): (units (u nknown) date) none unknown) (unknown) (no (unknown) (unknown) Surgeon: Sivakumar (units (unknown) date) Barrington Deleon unknown) (unknown) (no (unknown) (unknown) Time of (units (unkno wn) date) procedure: 16:20 unknown) (unknown) (no (unknown) (unknown) With the patient (units (unknown) date) under unknown) satisfactory IV sedation in the modified dorsal lithotomy (unknown) (no (unknown) (unknown) accordance with (units (unknown) date) [facility] unknown) Main OR protocols. A bivalve speculum was (unknown) (no (unknown) (unknown) by Artemioon for (units (unknown) date) menstrual unknown) suppression who is admitted for Mirena IUD insertion (unknown) (no (unknown) (unknown) cervical (units (unkno wn) date) dilation IUD unknown) insertion. Pre-surgical safety time-out was then taken in (unknown) (no (unknown) (unknown) couldn't be (units (un known) date) inserted at the unknown) same visit due to cervical stenosis and patient (unknown) (no (unknown) (unknown) discomfort.? (units (u nknown) date) She's admitted unknown) now for her scheduled dilation and IUD insertion. (unknown) (no (unknown) (unknown) endocervical (units (u nknown) date) canal with no unknown) significant resistance and released in the uppermost (unknown) (no (unknown) (unknown) equally (units (unkno wn) date) distributed unknown) between left and right side. After allowing sufficient time (unknown) (no (unknown) (unknown) for the (units (unkno wn) date) paracervical unknown) block to set, the anterior of the cervix was grasped with a (unknown) (no (unknown) (unknown) in the OR due to (units (unknown) date) cervical stenosis unknown) and pain with attempted in-office IUD (unknown) (no (unknown) (unknown) inserted vagina (units (unknown) date) and the cervix unknown) easily. Paracervical block with a total of 10 cc (unknown) (no (unknown) (unknown) insertion.? The (units (unknown) date) Nexplanon was unknown) removed in-office on 08/15/2022 but the Mirena (unknown) (no (unknown) (unknown) observation and (units (unknown) date) recovery having unknown) tolerated procedure well. (unknown) (no (unknown) (unknown) of 0.25% plain (units (unknown) date) Marcaine was unknown) placed at 4:00 and 8:00 with 10 cc total volume (unknown) (no (unknown) (unknown) p Dilation of (units ( unknown) date) uterine cervix unknown) Sivakumar Deleon MD (unknown) (no (unknown) (unknown) portion of the (units (unknown) date) endometrial unknown) cavity in the usual manner. The insertion device was (unknown) (no (unknown) (unknown) position, (units (unkn own) date) perineum, and unknown) vagina prepped and draped in the usual manner for (unknown) (no (unknown) (unknown) removed from the (units (unknown) date) anterior lip unknown) cervix and no bleeding was encountered. The (unknown) (no (unknown) (unknown) s Insertion of (units (unknown) date) Mirena IUD Sivakumar unknown) Barrington Deleon MD (unknown) (no (unknown) (unknown) single-tooth (units (u nknown) date) tenaculum and the unknown) endocervical canal gently dilated to 4 mm with (unknown) (no (unknown) (unknown) speculum was (units (u nknown) date) then removed from unknown) the vagina and the procedure terminated. Patient (unknown) (no (unknown) (unknown) then removed and (units (unknown) date) the strings unknown) trimmed to a length 3 cm. The tenaculum was (unknown) (no (unknown) (unknown) was awakened (units (u nknown) date) from sedation and unknown) transferred to the PACU for a period of Social History date description facility 2022-06-07 00:00 Never smoked tobacco (finding) [facility] 2022-08-02 00:00 Ex-smoker (finding) [facility] 2022-08-15 00:00 Ex-smoker (finding) [facility] 2022-08-30 00:00 Ex-smoker (finding) [facility] Vital Signs date measurement value units 2022-06-07 [...] 129.72 kg 2022-08-15 00:00 weight_standard 285.98 lb 2022-08-30 00:00 BMI 46.1 kg/m2 2022-08-30 00:00 BP_diastolic 64 mmHg 2022-08-30 00:00 BP_systolic 117 mmHg 2022-08-30 00:00 heart_rate 79 /min 2022-08-30 00:00 height_metric 167.64 cm 2022-08-30 00:00 height_standard 66 in 2022-08-30 00:00 o2_saturation 99 % 2022-08-30 00:00 respiration_rate 16 /min 2022-08-30 00:00 temperature_metric 36.56 C 2022-08-30 00:00 temperature_standard 97.8 F 2022-08-30 00:00 weight_metric 129.72 kg 2022-08-30 00:00 weight_standard 285.98 lb
[2022-09-03 20:16] LABS: BASOPHILS # (AUTO) 0.1 10^3/uL (0.0-0.1); BASOPHILS % (AUTO) 0.7 %; EOSINOPHILS # (AUTO) 0.3 10^3/uL (0.0-0.7); EOSINOPHILS % (AUTO) 3.1 %; HCT - HEMATOCRIT 41.9 % (37.0-47.0); HGB - HEMOGLOBIN 14.3 g/dL (12.0-16.0); LYMPHOCYTES # (AUTO) 4.4 10^3/uL (1.5-3.5); MEAN CORPUSCULAR HEMOGLOBIN 29.8 pg (27.0-31.0); MEAN CORPUSCULAR HGB CONC 34.1 g/dL (32.0-36.0); MEAN CORPUSCULAR VOLUME 87.3 fL (81.0-99.0); MEAN PLATELET VOLUME 11.9 fL (7.9-10.8); MONOCYTES # (AUTO) 0.4 10^3/uL (0.0-1.0); MONOCYTES % (AUTO) 5.1 %; NEUTROPHILS % (AUTO) 37.1 %; PLT - PLATELET COUNT 217 10^3/uL (130-450); RED CELL DISTRIBUTION WIDTH 12.4 % (12.0-15.0); WHITE BLOOD COUNT 8.2 x10^3/uL (4.8-10.8)
[2022-09-03 20:31] LABS: ALBUMIN/GLOBULIN RATIO 1.3 (1.0-2.2); BILIRUBIN,TOTAL 0.3 mg/dL (0.2-1.0); CALCIUM 8.9 mg/dL (8.5-10.3); CREATININE 0.9 mg/dL (0.4-1.0); POTASSIUM 3.9 mmol/L (3.5-5.0); TOTAL PROTEIN 7.2 g/dL (6.7-8.2)
[2022-09-03 21:19] LABS: BILIRUBIN,URINE NEGATIVE (NEGATIVE); GLUCOSE, URINE (UA) NEGATIVE (NEGATIVE); KETONES,URINE (UA) NEGATIVE (NEGATIVE); LEUKOCYTE ESTERASE, URINE NEGATIVE (NEGATIVE); NITRITE,URINE NEGATIVE (NEGATIVE); OCCULT BLOOD,URINE NEGATIVE (NEGATIVE); PH,URINE 5.5 PH (5.0-7.5); PROTEIN,URINE NEGATIVE (NEGATIVE); UROBILINOGEN,URINE 0.2 (NORMAL) E.U./dL (NORMAL)
[2022-09-03 21:22] LABS: CLARITY,URINE CLEAR (CLEAR); HCG UR QUAL NEGATIVE
[2022-09-03] MEDS ORDERED: KETOROLAC 30 MG/ML VIAL IM STA (22:16)
[2022-09-03] MEDS ORDERED: ONDANSETRON ODT 4 MG TABLET TL STA (22:16)
--- NOTE | 2022-09-03 22:18 | ED Physician Documentation ---
PD HPI ABD PAIN - Stated complaint Stated Complaint: ABD PX - Chief complaint Chief Complaint: Abd Pain - History obtained from History obtained from: Patient - Additional information Additional information: 36-year-old woman with history of fibroids presents with lower to mid abdominal pain for the past few weeks associated with nausea. She had an IUD placed last and was here last week with symptoms times and had normal lab work and urine. Patient states pain is the same as last week. Denies fever, urinary symptoms, diarrhea, vomiting. Review of Systems Constitutional: denies: Fever Respiratory: denies: Dyspnea GI: reports: Abdominal Pain, Nausea. 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 - Present Medications Home Medications: Ambulatory Orders Medication Instructions Recorded Confirmed Ondansetron Odt [Zofran] 4 mg TL Q6H PRN #10 tablet 09/16/18 11/07/20 Hydrocodone/Acetaminophen [[place] 1 each PO Q6H PRN #15 tablet 09/17/18 11/07/20 5-325 Tablet] Hydrocodone/Acetaminophen 1 - 2 each PO Q6H PRN #14 tablet 01/01/19 11/07/20 [Hydrocodon-Acetaminophen 5-325] Albuterol Sulf [Ventolin Hfa 1 - 2 puffs INH Q4HR PRN #1 inhaler 05/05/19 11/07/20 Inhaler] Oxycodone HCl/Acetaminophen 1 - 2 each PO Q6H PRN #14 tablet 01/11/20 11/07/20 [Percocet 5-325 mg Tablet] Cyclobenzaprine [Flexeril] 10 mg PO TID PRN #20 tablet 05/01/20 11/07/20 Meloxicam [Mobic] 7.5 mg PO BID PRN #20 tablet 05/01/20 11/07/20 Oxycodone HCl/Acetaminophen 1 - 2 each PO Q6H PRN #14 tablet 07/15/21 [Percocet 5-325 mg Tablet] Penicillin V Potassium 500 mg PO Q6HR #40 tablet 07/15/21 Fluconazole [Diflucan] 100 mg PO DAILY #1 tablet 07/23/21 Amox/Clav 875/125 [Augmentin] 1 each PO TID #30 tablet 12/18/21 Ondansetron Odt [Zofran] 4 mg TL Q6H PRN #10 tablet 12/18/21 Oxycodone HCl/Acetaminophen 1 - 2 each PO Q6H PRN #14 tablet 12/18/21 [Percocet 5-325 mg Tablet] ONDANSETRON ODT Prepack 2 [ZOFRAN 4 mg TL Q6H #14 tablet 08/27/22 ODT Prepack 2] Ketorolac [Toradol] 10 mg PO Q6H PRN #30 tablet 09/03/22 Ondansetron Odt [Zofran Odt] 4 mg TL Q6H PRN #10 tablet 09/03/22 - Allergies Allergies/Adverse Reactions: Allergies Allergy/AdvReac Type Severity Reaction Status Date / Time codeine AdvReac Intermediate Rash Verified 09/03/22 19:23 - Social History Does the pt smoke?: Yes Smoking Status: Current every day smoker Does the pt drink ETOH?: Yes Does the pt have substance abuse?: Yes - Immunizations Immunizations are current?: Yes Immunizations: TDAP current <10years - POLST Patient has POLST: No PD ED PE NORMAL - Vitals Vital signs reviewed: Yes - General General: Alert and oriented X 3, No acute distress, Well developed/nourished - HEENT HEENT: Atraumatic, PERRL, EOMI - Neck Neck: Supple, no meningeal sign - Abdomen Abdomen: Non tender, Non distended, Other (Discomfort to suprapubic palpation) - Derm Derm: Normal color, Warm and dry Results - Vitals Vitals: Vital Signs - 24 hr 09/03/22 09/03/22 19:20 21:23 Temperature 36.5 C Heart Rate 92 80 Respiratory 16 18 Rate Blood Pressure 143/80 H 132/83 H O2 Saturation 99 100 Oxygen O2 Source Room air - Labs Labs: Laboratory Tests 09/03/22 09/03/22 09/03/22 20:06 20:06 21:13 WBC 8.2 RBC 4.80 Hgb 14.3 Hct 41.9 MCV 87.3 MCH 29.8 MCHC 34.1 RDW 12.4 Plt Count 217 MPV 11.9 H Neut # (Auto) 3.0 Lymph # (Auto) 4.4 H Mccreary # (Auto) 0.4 Eos # (Auto) 0.3 Baso # (Auto) 0.1 Absolute Nucleated RBC 0.00 Nucleated RBC % 0.0 Sodium 139 Potassium 3.9 Chloride 107 Carbon Dioxide 26 Anion Gap 6.0 BUN 14 Creatinine 0.9 Estimated GFR (MDRD) 70 L Glucose 117 H Calcium 8.9 Total Bilirubin 0.3 AST 16 ALT 20 Alkaline Phosphatase 35 L Total Protein 7.2 Albumin 4.0 Globulin 3.2 Albumin/Globulin Ratio 1.3 Lipase 31 Urine Color YELLOW Urine Clarity CLEAR Urine pH 5.5 Ur Specific [place] >=1.030 H Urine Protein NEGATIVE Urine Glucose (UA) NEGATIVE Urine Ketones NEGATIVE Urine Occult Blood NEGATIVE Urine Nitrite NEGATIVE Urine Bilirubin NEGATIVE Urine Urobilinogen 0.2 (NORMAL) Ur Leukocyte Esterase NEGATIVE Ur Microscopic Review NOT INDICATED Urine Culture Comments NOT INDICATED Urine HCG, Qual NEGATIVE PD Medical Decision Making - ED course ED course: 36-year-old woman with history of fibroids presents with abdominal pain for the past few weeks associate with nausea. CBC and abdominal panel ordered as well as urinalysis. Test were unremarkable. Symptomatic care provided and prescription sent to pharmacy. Plan to follow-up with LEARNING OFFICER. Departure - Departure Disposition: 01 Home, Self Care Clinical Impression: Fibroids, Abdominal pain Condition: Good Instructions: Fibroids Prescriptions: Ketorolac [Toradol] 10 mg PO Q6H PRN #30 tablet PRN Reason: Pain Ondansetron Odt [Zofran Odt] 4 mg TL Q6H PRN #10 tablet PRN Reason: Nausea / Vomiting Comments: You are seen in the emergency department for abdominal pain and uterine fibroids. Your labwork and urine uncovered no emergent issues. Please follow-up with your dentist. Return to the emergency department for new or worsening symptoms or concerns. Electronic prescription for Zofran and Toradol was sent to [facility] in [place]. Forms: Activity restrictions
[2022-09-03] MEDS ORDERED: KETOROLAC 30 MG/ML VIAL IVP STA (22:25)
[2022-09-03 22:38] VITALS: BP 129/86
== END 2022-09-03 22:38 | disposition home or self-care (01) ==
LOC: ED 18:55
DX: R10.30 Lower abdominal pain, unspecified (principal); D25.9 Leiomyoma of uterus, unspecified; F17.200 Nicotine dependence, unspecified, uncomplicated
CPT/HCPCS: 36415; 80053; 81003; 81025; 83690; 85025; 96374; 99283; 99284; Q0162; 81001; 87086

== ENCOUNTER 2022-09-05 15:20 | Outpatient (CLI) | payer MEDICAID ==
--- NOTE | 2022-09-05 17:29 | XRAY Report ---
PROCEDURE: Knee 3 View RT INDICATIONS: RIGHT KNEE PAIN TECHNIQUE: views of the knee(s) were acquired. COMPARISON: None. FINDINGS: Bones: No fractures or dislocations. No suspicious bony lesions. There is mild right medial femor otibial compartment narrowing and trace medial compartment osteophytes. Soft tissues: No joint effusion. No suspicious soft tissue calcifications. IMPRESSION: Trace right knee osteoarthritis. Reviewed by: Monalisa Navarro MD on 09/05/2022 5:27 PM PST Approved by: Monalisa Navarro MD on 09/05/2022 5:27 PM PST Station ID: [id number]
== END 2022-09-05 15:29 | disposition home or self-care (01) ==
LOC: DI.WOS 15:20
PROVIDERS: ATTEND Physician Assistant Surgical
DX: M17.11 Unilateral primary osteoarthritis, right knee (principal)

== ENCOUNTER 2022-09-28 09:40 | Outpatient (CLI) | payer MEDICAID ==
--- NOTE | 2022-09-28 10:29 | SLEEP CARE CONSULTATION ---
Information from patient questionnaire entered by Meseret Clay. I have reviewed and concur with the information entered by Meseret Clay. This document represents the service I personally performed and the decisions made by me, Angelina Yost ARNP. History of Present Illness Service Date and Time: 09/28/2022 0940 Reason for Visit: New patient Chief Complaint: reports: Snoring, Fatigue, Other (JERKING AWAKE, FREQUENT URINATION AT NIGHT) Date of Onset: 6+YRS Usual bedtime: 11PM-12AM Time it takes to fall asleep: 5-20MIN Snores at night: Yes Observed to quit breathing while asleep: Yes Number of times waking at night: 3+ Reasons for waking at night: reports: Gasping for air (with the jerking awake, sometimes), Pain, Bathroom, Other (UNKNOWN). denies: Choking, Snoring Toss, Turn, or Twitch while sleeping: Yes Recalls having dreams: Yes (occasionally) Usually gets out of bed at: 645AM-9AM Feels refreshed in the morning: No Morning headache: Yes (1-2 times a week; RESOLVES AROUND 11-12) Sleepy or fatigued during the day: Yes Ever fallen asleep while driving: No Takes day naps: Yes (20 mins, 3-5 days a week at lunchtime) Dreams during day naps: No Prior sleep studies: No Additional HPI information: I had the pleasure of seeing CORY OSBORNE today regarding the possibility of her having a sleep disorder. Her current complaints are fatigue, jerking awake, snoring and excess urination at night. She states over the last year she is having increasing episodes of jerking awake, often with gasping for air. She states she wakes up 3-4 times a night and is waking up feeling tired. She has woke up feeling dizzy. She states she has ground her teeth in the past at night. She states others have heard her snoring and then stop breathing at night. She states she did have some sort of machine because she would stop breathing as an . She sleepwalked as a child but has not for a long time. She also had some sleep paralysis often when a teenager but this no longer happens. Her 18 year old son was just diagnosed with sleep disordered breathing and placed on a PAP machine. 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 Patient is Single and lives in . Have you smoked in the past 12 months: No Years of smokin Quit date: 2019 Alcohol use: Yes Alcohol amount and frequency: OCCASIONAL Caffeine use: Yes Caffeine amount and frequency: 20OZ RED BULL DAILY Family History Family history of sleep disordered breathing: Yes (son was recently diagnosed ) Family Hx Sleep Apnea: Mother: Snoring, Father: Snoring, Sibling: Snoring Allergies and Home Medications Known drug allergies: No Drug allergies reviewed: Yes Home medication list reviewed: Yes Allergy and home medication list: Allergies codeine Adverse Reaction (Intermediate, Verified 09/27/22 13:13) Rash Medications: Bupropion 300 mg daily Duloxetine 30 mg bid Trazodone 25 mg, prn Review of Systems Weight gain over past 5 years: 100, lost and has gained it back Weight loss over past 5 years: 100 Cardiovascular: reports: palpitations, irregular heart rate or pulse, leg or foot swelling. denies: high blood pressure Respiratory: reports: shortness of breath Gastrointestinal: reports: nausea, abdominal pain. denies: heartburn Urinary: reports: frequency, urgency Neurological: denies: headaches Psychiatric: reports: Attention Deficit Hyperactivity, anxiety, depression Ear/Nose/Throat: reports: dry mouth/throat, wisdom teeth removed. denies: tonsillectomy Endocrine: reports: too hot or cold, excessive thirst Musculoskeletal: reports: joint pain, neck pain, back pain, joint swelling, muscle pain or cramping Physical Exam Vital signs obtained and entered by: MESERET Jimenes MA Blood Pressure: 130/84 (LEFT ARM) Cuff size: long Heart Rate: 90 O2 Saturation: 97 Height: 5 ft 6 in Weight: 289 lb 6.4 oz Body Mass Index: 46.7 BMI Classification: Morbidly Obese Neck circumference: 17 Mouth and throat: narrow oropharynx Soft palate: long Hard palate: normal Uvula: normal Uvula visualization: 50% Mallampati Class II Tongue: normal in size Tonsils: 3+/kissing Neck: normal w/o lymphadenopathy or thyromegaly Heart: regular rate and rhythm Lungs: clear bilaterally Impression and Plan 1. Suspected Obstructive Sleep Apnea-Hypopnea Syndrome, as suggested by a history of loud and irregular snoring, observed cessation of breath while asleep, gasping or choking in sleep, morning headache, frequent awakening during the night, unrefreshed sleep, cognitive impairment, and excessive daytime sleepiness. Narrow oropharynx and obesity are common predisposing factors for obstructive sleep apnea-hypopnea syndrome. I recommend proceeding to polysomnography to confirm the diagnosis and to assess severity. If the patient has significant sleep disordered breathing, a manual CPAP titration study will also be performed to find the optimal treatment pressure. I informed the patient of what the sleep studies involve and after some discussion, obtained agreement to proceed. The pathophysiology of obstructive sleep apnea-hypopnea syndrome was discussed with the patient and health risks of cardiovascular and cerebrovascular disease if not treated. Risks of drowsy driving discussed in detail and patient advised to avoid long distance driving and to caul puller at the first sign of drowsiness. Patient agreed to plan. * Schedule polysomnography * Avoid long distance driving or driving when feeling sleepy. * Avoid alcohol, sedative and muscle relaxant around bedtime. * Attempt to lose weight. * Review instructions provided by trained office staff on how to prepare for the sleep study. * Return for follow-up after sleep study completed. Counseling Topics: Weight loss health impact Visit Type: In Office Time Spent with Patient (minutes): 30 Provider Statement: I spent 100% of the Face to Face Visit with the patient with greater than 50% spent counseling the patient and coordination of care.
[2022-09-28 10:30] VITALS: BP 130/84
== END 2022-09-28 09:41 | disposition home or self-care (01) ==
LOC: SC 09:40
PROVIDERS: ATTEND Nurse Practitioner Family
DX: G47.10 Hypersomnia, unspecified (principal); R53.83 Other fatigue; G47.8 Other sleep disorders; R51.9 Headache, unspecified; R06.83 Snoring; R06.81 Apnea, not elsewhere classified; F32.A Depression, unspecified; E66.01 Morbid (severe) obesity due to excess calories; Z68.42 Body mass index [BMI] 45.0-49.9, adult
CPT/HCPCS: 99203; 99212

== ENCOUNTER 2022-10-17 20:44 | Outpatient (CLI) | payer MEDICAID | END 2022-10-17 20:45 | disposition home or self-care (01) | LOC: SC 20:44 | PROVIDERS: ATTEND Nurse Practitioner Family | DX: G47.33 Obstructive sleep apnea (adult) (pediatric) (principal); E66.01 Morbid (severe) obesity due to excess calories; Z68.42 Body mass index [BMI] 45.0-49.9, adult | CPT/HCPCS: 95810 ==

== ENCOUNTER 2022-11-05 16:49 | Emergency (ER) | payer MEDICAID ==
[2022-11-05 17:26] LABS: BILIRUBIN,URINE NEGATIVE (NEGATIVE); GLUCOSE, URINE (UA) NEGATIVE (NEGATIVE); KETONES,URINE (UA) NEGATIVE (NEGATIVE); LEUKOCYTE ESTERASE, URINE NEGATIVE (NEGATIVE); NITRITE,URINE NEGATIVE (NEGATIVE); OCCULT BLOOD,URINE TRACE-INTA (NEGATIVE); PROTEIN,URINE NEGATIVE (NEGATIVE); UROBILINOGEN,URINE 0.2 (NORMAL) E.U./dL (NORMAL)
[2022-11-05 17:33] LABS: BASOPHILS % (AUTO) 0.3 %; EOSINOPHILS # (AUTO) 0.3 10^3/uL (0.0-0.7); HCT - HEMATOCRIT 40.2 % (37.0-47.0); HGB - HEMOGLOBIN 13.6 g/dL (12.0-16.0); LYMPHOCYTES # (AUTO) 4.1 10^3/uL (1.5-3.5); LYMPHOCYTES % (AUTO) 29.4 %; MEAN CORPUSCULAR HEMOGLOBIN 29.3 pg (27.0-31.0); MEAN CORPUSCULAR HGB CONC 33.8 g/dL (32.0-36.0); MEAN CORPUSCULAR VOLUME 86.6 fL (81.0-99.0); MEAN PLATELET VOLUME 12.1 fL (7.9-10.8); MONOCYTES # (AUTO) 0.8 10^3/uL (0.0-1.0); MONOCYTES % (AUTO) 5.3 %; NEUTROPHILS # (AUTO) 8.8 10^3/uL (1.5-6.6); NEUTROPHILS % (AUTO) 62.6 %; PLT - PLATELET COUNT 220 10^3/uL (130-450); RED BLOOD COUNT 4.64 10^6/uL (4.20-5.40); RED CELL DISTRIBUTION WIDTH 12.5 % (12.0-15.0); WHITE BLOOD COUNT 14.1 x10^3/uL (4.8-10.8)
--- OUTSIDE RECORDS SUMMARY | 2022-11-05 17:38 | EXTERNAL MEDICAL SUMMARY RPT | Continuity of Care Document ---
:1985 Author Organization [facility] Address [address] [place] [address] Phone Care Team Providers Name Role Phone Unavailable Unavailable Unavailable Rafael Mcgee Unavailable Unavailable Allergies and Intolerances date description facility type (no date) No Known Drug Allergies [facility] (unkn own) Encounters No information. Functional Status No information. Immunizations No information. Medications No information. Problems date description facility 2022-08-15 00:[address] [facility] 2022-08-15 00:00 Stenosis of [facility] 2022-08-30 15:00 Stricture and stenosis of [facility] 2022-08-30 15:00 Encounter for insertion of [facility] contraceptive device 2022-08-30 15:47 Stricture and stenosis of [facility] 2022-08-30 15:47 Encounter for insertion of [facility] contraceptive device 2022-08-30 16:36 Adenomyosis of the uterus [facility] 2022-08-30 16:36 Stricture and stenosis of [facility] 2022-08-30 16:36 Encounter for insertion of [facility] contraceptive device 2022-08-30 16:49 Adenomyosis of the uterus [facility] 2022-08-30 16:49 Stricture and stenosis of [facility] 2022-08-30 16:49 Encounter for insertion of [facility] contraceptive device 2022-08-30 17:08 Adenomyosis of the uterus [facility] 2022-08-30 17:08 Stricture and stenosis of [facility] 2022-08-30 17:08 Encounter for insertion of [facility] contraceptive device 2022-09-17 16:41 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, [facility] implants and g 2022-10-08 08:19 Diverticulosis of intestine, part unspe cified, [facility] without perfo 2022-10-08 08:19 Slow transit constipation [facility] 2022-10-08 08:19 Unspecified abdominal pain [facility] 2022-10-08 08:20 Diverticulosis of intestine, part unspe cified, [facility] without perfo 2022-10-08 08:20 Slow transit constipation [facility] 2022-10-08 08:20 Unspecified abdominal pain [facility] ital Procedures date description facility 2022-08-30 00:00 Dilation and Curettage [facility] 2022-08-30 00:00 Intrauterine Device Insertion/Removal [facility] 2022-09-17 00:00 Complete ultrasound of pelvis [facility] ospital Results/Labs test date author facility value unit interpret ation Result panel 1 (unknown) (no (unknown) (unknown) (no value) (units [...] own) date) unknown) (unknown) (no (unknown) (unknown) [place], [place] (units ( unknown) date) [id number] unknown) (unknown) (no (unknown) (unknown) Anesthesia (units [...] date) () unknown) (unknown) (no (unknown) (unknown) Iybkiok-Wfjag-Lk (units (unknown) date) oth disease unknown) (unknown) (no (unknown) (unknown) Chlamydia (units (unkn own) date) () unknown) (unknown) (no (unknown) (unknown) Chronic insomnia (units (unknown) date) unknown) (unknown) (no (unknown) (unknown) Chronic low back (units (unknown) date) pain () unknown) (unknown) (no (unknown) (unknown) Chronic, (units (unkno wn) date) continuous use of unknown) opioids (unknown) (no (unknown) (unknown) : 1985 (units (unknown) date) Acct:[id number] unknown) (unknown) (no (unknown) (unknown) Depression (units [...] date) (-2009) unknown) (unknown) (no (unknown) (unknown) Herpes (-2018) [...] wn) date) unknown) (unknown) (no (unknown) (unknown) [id number] (units (unk nown) date) unknown) (unknown) (no (unknown) (unknown) Medical History (units (unknown) date) (Reviewed unknown) 08/02/22 @ 05:44 by Rafale Mcgee MD) (unknown) (no (unknown) (unknown) Mental [...] (unknown) (unknown) 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, (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, 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 (unknown) (no (unknown) (unknown) [...] unknown) 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, 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 services 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 Result panel 2 (unknown) (no (unknown) (unknown) (no value) (units [...] own) date) unknown) (unknown) (no (unknown) (unknown) [place], [place] (units ( unknown) date) [address] unknown) (unknown) (no (unknown) (unknown) Anesthesia (units [...] date) () unknown) (unknown) (no (unknown) (unknown) Vggcuco-Himxm-Hk (units (unknown) date) oth disease unknown) (unknown) [...] (unknown) (unknown) : 1985 (units (unknown) date) Acct:[id number] unknown) (unknown) (no (unknown) (unknown) Depression (units [...] wn) date) unknown) (unknown) (no (unknown) (unknown) [id number] (units (unk nown) date) unknown) (unknown) (no [...] (unknown) (unknown) 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, (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, 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 (unknown) (no (unknown) (unknown) [...] unknown) 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, 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 services 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 (unknown) (no (unknown) (unknown) trazodone 50 mg (units (unknown) date) tablet 50 mg PO unknown) BEDTIME PRN sleep 01/03/22 [History Confirmed (unknown) (no (unknown) (unknown) upon check in pt (units (unknown) date) states that she unknown) does also have a nexplanon in place Result panel 3 (unknown) (no (unknown) (unknown) (no value) (units [...] own) date) unknown) (unknown) (no (unknown) (unknown) [place], [place] (units ( unknown) date) [address] unknown) (unknown) (no (unknown) (unknown) Anesthesia (units [...] date) () unknown) (unknown) (no (unknown) (unknown) Rnhbhps-Vfmeq-Qx (units (unknown) date) oth disease unknown) (unknown) [...] (unknown) (unknown) : 1985 (units (unknown) date) Acct:[id number] unknown) (unknown) (no (unknown) (unknown) Depression (units [...] wn) date) unknown) (unknown) (no (unknown) (unknown) [id number] (units (unk nown) date) unknown) (unknown) (no [...] (unknown) (unknown) 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, (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, 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 (unknown) (no (unknown) (unknown) [...] unknown) 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, 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..] wn) date) unknown) (unknown) (no (unknown) (unknown) [id number] (units (unk nown) date) unknown) (unknown) (no [...] (unknown) Patient: (units (unkno wn) date) ClementeKenyetta araiza unknown) B MR#: (unknown) (no (unknown) (unknown) [...] (unknown) (unknown) 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, (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, 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 (unknown) (no (unknown) (unknown) [...] unknown) 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, financial services 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 (unknown) (no (unknown) (unknown) trazodone 50 [...] will be removed today at Result panel 5 (unknown) (no (unknown) (unknown) (no value) (units (unk nown) date) unknown) (unknown) (no (unknown) (unknown) 08/15/22 (units (unkno wn) date) unknown) (unknown) (no (unknown) (unknown) 08/15/22] (units (unkn own) date) unknown) (unknown) (no (unknown) (unknown) 14:43 (units (unkno wn) date) unknown) (unknown) (no (unknown) (unknown) 150 mg IM Left (units (unknown) date) Glute [id number] unknown) 04/06/24 [id number] [facility] (unknown) (no (unknown) (unknown) ADHD [...] (unknown) [place] (units ( unknown) date) [address] unknown) (unknown) (no (unknown) (unknown) Anesthesia (units [...] date) () unknown) (unknown) (no (unknown) (unknown) Eezgpmz-Jxjfv-Gr (units (unknown) date) oth disease unknown) (unknown) [...] (unknown) (unknown) : 1985 (units (unknown) date) Acct:[id number] unknown) (unknown) (no (unknown) (unknown) Depo-Provera (units [...] unknown) 08/15/22 1427 (unknown) (no (unknown) (unknown) Dose [...] wn) date) unknown) (unknown) (no (unknown) (unknown) [id number] (units (unk nown) date) unknown) (unknown) (no (unknown) (unknown) 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) unknown) (unknown) (no [...] (unknown) (unknown) 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, (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, 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 (unknown) (no (unknown) (unknown) [...] unknown) 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, financial services 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 (unknown) (no (unknown) (unknown) trazodone 50 [...] will be removed today at Result panel 6 (unknown) (no (unknown) (unknown) (no value) (units (unk nown) date) unknown) (unknown) (no (unknown) (unknown) 08/15/22 (units (unkno wn) date) unknown) (unknown) (no (unknown) (unknown) 08/15/22] (units (unkn own) date) unknown) (unknown) (no (unknown) (unknown) 14:43 (units (unkno wn) date) unknown) (unknown) (no (unknown) (unknown) 150 mg IM Left (units (unknown) date) Glute [id number] unknown) 04/06/24 [id number] [facility]HA[facility] (unknown) (no (unknown) (unknown) ADHD [...] own) date) unknown) (unknown) (no (unknown) (unknown) [place], [place] (units ( unknown) date) [address] unknown) (unknown) (no (unknown) (unknown) Anesthesia (units [...] date) () unknown) (unknown) (no (unknown) (unknown) Teyurxw-Jfgzb-La (units (unknown) date) oth disease unknown) (unknown) [...] (unknown) (unknown) : 1985 (units (unknown) date) Acct:[id number] unknown) (unknown) (no (unknown) (unknown) Depo-Provera (units [...] unknown) 08/15/22 1427 (unknown) (no (unknown) (unknown) Dose Route Admin (units (unknown) date) Location Lot unknown) Number Expiration Date NDC (unknown) (no (unknown) (unknown) Draft (units (unkno wn) date) unknown) (unknown) (no (unknown) (unknown) EOM: EOM intact (units (unknown) date) bilaterally unknown) (unknown) (no (unknown) (unknown) Ears: hearing (units ( unknown) date) grossly normal unknown) bilaterally (unknown) (no (unknown) (unknown) Effort + (units (o wn) date) Inspection: unknown) normal respiratory effort [...] wn) date) unknown) (unknown) (no (unknown) (unknown) [id number] (units (unk nown) date) unknown) (unknown) (no (unknown) (unknown) 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) unknown) (unknown) (no [...] date) (-2004) unknown) (unknown) (no (unknown) (unknown) Mood: congruent [...] (unknown) (unknown) 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, (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, 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 (unknown) (no (unknown) (unknown) [...] unknown) 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, financial services 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 (unknown) (no (unknown) (unknown) trazodone 50 [...] will be removed today at Result panel 7 (unknown) (no (unknown) (unknown) (no value) (units [...] mg IM Left (units (unknown) date) Glute [id number] unknown) 04/06/24 [id number] [facility] (unknown) (no (unknown) (unknown) ADHD [...] own) date) unknown) (unknown) (no (unknown) (unknown) [place], [place] (units ( unknown) date) [address] unknown) (unknown) (no (unknown) (unknown) Anesthesia (units [...] Betadine: unknown) Yes (unknown) (no (unknown) (unknown) Vhmiwby-Bdarn-Bf (units (unknown) date) oth disease unknown) (unknown) [...] (unknown) (unknown) : 1985 (units (unknown) date) Acct:[id number] unknown) (unknown) (no (unknown) (unknown) Depo-Provera (units [...] wn) date) unknown) (unknown) (no (unknown) (unknown) [id number] (units (unk nown) date) unknown) (unknown) (no (unknown) (unknown) 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) unknown) (unknown) (no [...] (unknown) (unknown) 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, (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, 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 (unknown) (no (unknown) (unknown) [...] unknown) 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, financial services 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 m (unknown) (no (unknown) (unknown) the [...] another attempt was made to Result panel 8 (unknown) (no (unknown) (unknown) (no value) (units [...] date) () unknown) (unknown) (no (unknown) (unknown) Cybjkvf-Ykije-Mzlyr (unit s (unknown) date) disease unknown) (unknown) [...] (unknown) (unknown) : 1985 (units (unknown) date) Acct:[id number] unknown) (unknown) (no (unknown) (unknown) Date of Service: (units (unknown) date) 08/23/22 unknown) (unknown) (no (unknown) (unknown) Depression (units (unk nown) date) unknown) (unknown) (no (unknown) (unknown) Diverticular (units (u nknown) date) disease (-2020) unknown) (unknown) (no (unknown) (unknown) EOM: EOM [...] syndrome () unknown) (unknown) (no (unknown) (unknown) [facility] (units (unknown) date) [address] unknown) [place] [address] (unknown) (no (unknown) (unknown) Judgment: judgment (units (unknown) date) good unknown) (unknown) (no (unknown) (unknown) Left ovarian cyst (units (unknown) date) () unknown) (unknown) (no (unknown) (unknown) [id number] (units (unk nown) date) unknown) (unknown) (no [...] unknown) body habitus (unknown) (no (unknown) (unknown) 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 + (units (unknown) date) Physical unknown) [...] surgery (-2000) unknown) (unknown) (no (unknown) (unknown) Surgical History [...] (unknown) (unknown) 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, (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, 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) (unknown) (no (unknown) (unknown) [...] PRN sleep 01/03/22 08/15/22 History Result panel 9 (unknown) (no (unknown) (unknown) (no value) (units [...] date) () unknown) (unknown) (no (unknown) (unknown) Zwcjavg-Jcxgc-Dnrgm (unit s (unknown) date) disease unknown) (unknown) [...] (unknown) (unknown) : 1985 (units (unknown) date) Acct:[id number] unknown) (unknown) (no (unknown) (unknown) Date of [...] tenderness unknown) (unknown) (no (unknown) (unknown) Gout () [...] syndrome () unknown) (unknown) (no (unknown) (unknown) [facility] (units (unknown) date) [address] unknown) [place] [address] (unknown) (no (unknown) (unknown) Judgment: judgment (units (unknown) date) good unknown) (unknown) (no (unknown) (unknown) Left ovarian cyst (units (unknown) date) () unknown) (unknown) (no (unknown) (unknown) [id number] (units (unk nown) date) unknown) (unknown) (no [...] unknown) body habitus (unknown) (no (unknown) (unknown) 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 + (units (unknown) date) Physical unknown) [...] Bria unknown) MR#: (unknown) (no (unknown) (unknown) Problem-specific [...] unknown) (unknown) (no (unknown) (unknown) Sleep apnea (-1989) (unit s (unknown) date) unknown) (unknown) (no [...] 08/15/22 History (unknown) (no (unknown) (unknown) by I-MD for (units (unknown) date) menstrual unknown) suppression who is admitted for Mirena IUD insertion (unknown) (no (unknown) (unknown) couldn't be (units (un known) date) inserted at the same unknown) visit due to cervical stenosis and patient (unknown) (no (unknown) (unknown) 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, (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, 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) (unknown) (no (unknown) (unknown) [...] PRN sleep 01/03/22 08/15/22 History Result panel 10 (unknown) (no (unknown) (unknown) (no value) (units [...] date) () unknown) (unknown) (no (unknown) (unknown) Vlfzonr-Oorsi-Zxzmd (unit s (unknown) date) disease unknown) (unknown) [...] (unknown) (unknown) : 1985 (units (unknown) date) Acct:[id number] unknown) (unknown) (no (unknown) (unknown) Date of [...] syndrome () unknown) (unknown) (no (unknown) (unknown) [facility] (units (unknown) date) [address] [place] [address] unknown) [place] [address] (unknown) (no (unknown) (unknown) Judgment: judgment (units (unknown) date) good unknown) (unknown) (no (unknown) (unknown) Left ovarian cyst (units (unknown) date) () unknown) (unknown) (no (unknown) (unknown) [id number] (units (unk nown) date) unknown) (unknown) (no [...] unknown) body habitus (unknown) (no (unknown) (unknown) 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 + (units (unknown) date) Physical unknown) [...] (no (unknown) (unknown) Speech and (units (unk n) date) Movement: speech and unknown) movement normal [...] 08/15/22 History (unknown) (no (unknown) (unknown[facility] (units ([facility]) date) menstrual unknown) suppression [...] (unknown) (unknown) 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, (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, 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) (unknown) (no (unknown) (unknown) [...] PRN sleep 01/03/22 08/15/22 History Result panel 11 (unknown) (no (unknown) (unknown) (no value) (units [...] (unknown) (unknown) : 1985 (units (unknown) date) Acct:[id number] unknown) (unknown) (no (unknown) (unknown) Date of (units (unkno wn) date) Service: unknown) 08/23/22 (unknown) (no (unknown) (unknown) History + (units (unkn own) date) Physical unknown) reviewed/Exam performed by Physician: Yes (unknown) (no (unknown) (unknown) Interval Note (units ( unknown) date) unknown) (unknown) (no (unknown) (unknown) [facility] (units (unknown) date) [address] unknown) [place] [address] (unknown) (no (unknown) (unknown) [id number] (units (unk nown) date) unknown) (unknown) (no [...] (unknown) date) current SOC unknown) Result panel 12 (unknown) (no (unknown) (unknown) (no value) (units [...] date) () unknown) (unknown) (no (unknown) (unknown) Ozkpxmk-Tlfld-Awlcx (unit s (unknown) date) disease unknown) (unknown) [...] (unknown) (unknown) : 1985 (units (unknown) date) Acct:[id number] unknown) (unknown) (no (unknown) (unknown) Date of [...] tenderness unknown) (unknown) (no (unknown) (unknown) Gout () [...] syndrome (-2008) unknown) (unknown) (no (unknown) (unknown) [facility] (units (unknown) date) [address] unknown) [place] [address] (unknown) (no (unknown) (unknown) Judgment: judgment (units (unknown) date) good unknown) (unknown) (no (unknown) (unknown) Left ovarian cyst (units (unknown) date) () unknown) (unknown) (no (unknown) (unknown) [id number] (units (unk nown) date) unknown) (unknown) (no [...] unknown) body habitus (unknown) (no (unknown) (unknown) 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 + (units (unknown) date) Physical unknown) [...] (unknown) (unknown) 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, (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, 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) (unknown) (no (unknown) (unknown) [...] PRN sleep 01/03/22 08/15/22 History Result panel 13 (unknown) (no date) (unknown) (unknown) (no value) (units (un known) unknown) (unknown) (no date) (unknown) (unknown) Actual (units (unkn own) Procedure Side unknown) Surgeon (unknown) (no date) (unknown) (unknown) Adenomyosis (units (u nknown) unknown) (unknown) (no date) (unknown) (unknown) Age/Sex: 36 / (units (unknown) F unknown) (unknown) (no date) (unknown) (unknown) : (units (unkn own) 1985 unknown) Acct:[id number] (unknown) (no date) (unknown) (unknown) Date of (units (unkn own) Service: unknown) 08/30/22 (unknown) (no date) (unknown) (unknown) Date of (units (unkn own) procedure: unknown) 08/30/22 (unknown) (no date) (unknown) (unknown) [facility] (units (unkn own) [place] [address] unknown) [address] [place] [address] (unknown) (no date) (unknown) (unknown) [id number] (units (un known) unknown) (unknown) (no date) [...] IUD unknown) Sivakumar Deleon MD Result panel 14 (unknown) (no (unknown) (unknown) (no value) (units [...] (unknown) (unknown) : 1985 (units (unknown) date) Acct:[id number] unknown) (unknown) (no (unknown) (unknown) Date of [...] nknown) date) unknown) (unknown) (no (unknown) (unknown) [facility] (units (unknown) date) [address] unknown) [place] [address] (unknown) (no (unknown) (unknown) [id number] (units (unk nown) date) unknown) (unknown) (no [...] (units (unkno wn) date) Kenyetta Cornejo unknown) Bria MR#: (unknown) (no (unknown) (unknown) Plan for [...] (unknown) (unknown) accordance with (units (unknown) date) [facility] unknown) Main OR protocols. A bivalve [...] to the PACU for a period of Result panel 15 (unknown) (no (unknown) (unknown) (no value) (units (unk nown) date) unknown) (unknown) (no (unknown) (unknown) 09/17/22 (units (unkno wn) date) unknown) (unknown) (no (unknown) (unknown) 1. IUD within (units ( unknown) date) the endometrial unknown) cavity in the uterine fundus. (unknown) (no (unknown) (unknown) [address] [facility] (units (unknown) date) unknown) (unknown) (no (unknown) (unknown) 2. Limited (units (unk nown) date) examination due unknown) to prominent bowel gas and the patient's body (unknown) (no (unknown) (unknown) Accession (units (unkn own) date) Number: unknown) [id number] (unknown) (no (unknown) (unknown) Additional (units (unkn own) date) endovaginal unknown) scanning was necessary due to incomplete visualization of (unknown) (no (unknown) (unknown) Age/Sex: 36 / F (units (unknown) date) Date of Service: unknown) (unknown) (no (unknown) (unknown) [place] (units ( unknown) date) [address] unknown) (unknown) (no (unknown) (unknown) Approved by: (units (u nknown) date) Roddy Bradley M.D. unknown) on 09/19/2022 at 8:35 (unknown) (no (unknown) (unknown) COMPARISON: (units (un known) date) [facility], unknown) MR, MR PELVIS WO/W CON, 04/19/2022, 20:00. (unknown) (no (unknown) (unknown) : 1985 (units (unknown) date) Acct:[id number] unknown) (unknown) (no (unknown) (unknown) Dictated by: (units (u nknown) date) Roddy Bradley M.D. unknown) on 09/18/2022 at 18:40 (unknown) (no (unknown) (unknown) FINDINGS: (units (unkn own) date) unknown) (unknown) (no (unknown) (unknown) IMPRESSION: (units (un known) date) unknown) (unknown) (no (unknown) (unknown) INDICATIONS: (units (u nknown) date) PAIN. EVALUATE unknown) LOCATION OF INTRAUTERINE DEVICE. (unknown) (no (unknown) (unknown) [facility] (units (unknown) date) unknown) (unknown) (no (unknown) (unknown) Loc: [place] (units (unkno wn) date) unknown) (unknown) (no (unknown) (unknown) [id number] (units (unk nown) date) unknown) (unknown) (no (unknown) (unknown) Nabothian cysts (units (unknown) date) in cervix. unknown) (unknown) (no (unknown) (unknown) Ordering (units (unkno wn) date) Provider: unknown) Amy Price MD (unknown) (no (unknown) (unknown) Other: No (units (unkn own) date) pathologic free unknown) abdominal or pelvic fluid. (unknown) (no (unknown) (unknown) Ovaries are not (units (unknown) date) visualized. unknown) (unknown) (no (unknown) (unknown) Ovaries: Ovaries (units (unknown) date) are not unknown) visualized. (unknown) (no (unknown) (unknown) PROCEDURE: US (units ( unknown) date) PELVIC COMPLETE unknown) (unknown) (no (unknown) (unknown) Patient: (units (unkno wn) date) Kenyetta Cornejo unknown) B MR#: (unknown) (no (unknown) (unknown) Procedure: US (units ( unknown) date) pelvic complete unknown) (unknown) (no (unknown) (unknown) Real-time (units (unkno wn) date) scanning was unknown) performed of the pelvic organs, with image documentation. (unknown) (no (unknown) (unknown) Signed (units (unkno wn) date) unknown) (unknown) (no (unknown) (unknown) TECHNIQUE: (units (unk nown) date) unknown) (unknown) (no (unknown) (unknown) To assist (units (unkn own) date) unknown) (unknown) (no (unknown) (unknown) Ultrasound (units (unk nown) date) Report unknown) (unknown) (no (unknown) (unknown) Uterus: Uterus (units (unknown) date) is anteverted and unknown) normal in size at 7.8 x 5.2 x 4.7 cm. The (unknown) (no (unknown) (unknown) We strive to (units (u nknown) date) produce accurate, unknown) complete, and clear reports of imaging services. (unknown) (no (unknown) (unknown) adnexal and (units (un known) date) endometrial unknown) structures by transabdominal scanning. (unknown) (no (unknown) (unknown) an IUD (units (unkno wn) date) unknown) (unknown) (no (unknown) (unknown) and voice (units (unkn own) date) recognition unknown) software. Therefore, it may contain abnormal punctuation, (unknown) (no (unknown) (unknown) habitus. (units (unkno wn) date) unknown) (unknown) (no (unknown) (unknown) heterogeneous. (units (unknown) date) The endometrium unknown) measures 7.2 mm combined thickness. There is (unknown) (no (unknown) (unknown) inaccuracies. (units ( unknown) date) unknown) (unknown) (no (unknown) (unknown) insertions (units (unk nown) date) and/or omissions. unknown) Occasional wrong-word or sound-alike substitutions (unknown) (no (unknown) (unknown) left. (units (unkno wn) date) unknown) (unknown) (no (unknown) (unknown) may (units (unkno wn) date) unknown) (unknown) (no (unknown) (unknown) myometrium is (units ( unknown) date) unknown) (unknown) (no (unknown) (unknown) occur. Though we (units (unknown) date) review the report unknown) and make efforts to correct it, we do (unknown) (no (unknown) (unknown) recommend that (units (unknown) date) unknown) (unknown) (no (unknown) (unknown) templates (units (unkn own) date) unknown) (unknown) (no (unknown) (unknown) the report be (units ( unknown) date) read carefully in unknown) proper context to recognize any text (unknown) (no (unknown) (unknown) the (units (unkno wn) date) unknown) (unknown) (no (unknown) (unknown) us in improving (units (unknown) date) patient care, unknown) this report was composed using standard report (unknown) (no (unknown) (unknown) within (units (unkno wn) date) endometrial unknown) cavity in the uterine fundus. The crossbar extending to the Result panel 16 (unknown) (no (unknown) (unknown) (no value) (units (unk nown) date) unknown) (unknown) (no (unknown) (unknown) (1) Abdominal (units ( unknown) date) pain: unknown) (unknown) (no (unknown) (unknown) (2) Diverticular (units (unknown) date) disease: unknown) (unknown) (no (unknown) (unknown) (3) Constipation (units (unknown) date) by delayed unknown) colonic transit: (unknown) (no (unknown) (unknown) 09/19/22 (units (unkno wn) date) unknown) (unknown) (no [...] of Service: unknown) (unknown) (no (unknown) (unknown) All participants (units (unknown) date) + their role: unknown) (Providers,Parent ,Spouse,etc): (unknown) (no (unknown) (unknown) Allergies (units (unkn own) date) unknown) (unknown) (no (unknown) (unknown) [place], [place] (units ( unknown) date) [id number] unknown) (unknown) (no (unknown) (unknown) Anesthesia (units (unk nown) date) unknown) (unknown) (no (unknown) (unknown) Anxiety (units (unkno wn) date) unknown) (unknown) (no (unknown) (unknown) Assessment + (units (u nknown) date) Plan unknown) (unknown) (no (unknown) (unknown) Asthma (units (unkno wn) date) unknown) (unknown) (no (unknown) (unknown) Attending Dr: (units ( unknown) date) Sterling Woods MD unknown) (unknown) (no (unknown) (unknown) Carpal tunnel (units ( unknown) date) syndrome () unknown) (unknown) (no (unknown) (unknown) Cervical cancer (units (unknown) date) (-2003) unknown) (unknown) (no (unknown) (unknown) Zinpbal-Gswni-Ei (units (unknown) date) oth disease unknown) (unknown) (no (unknown) (unknown) Chief Complaint (units (unknown) date) unknown) (unknown) (no (unknown) (unknown) Chief Complaint: (units (unknown) date) Lower abdominal unknown) pain (unknown) (no (unknown) (unknown) Chlamydia (units (unkn own) date) () unknown) (unknown) (no (unknown) (unknown) Chronic insomnia (units (unknown) date) unknown) (unknown) (no (unknown) (unknown) Chronic low back (units (unknown) date) pain () unknown) (unknown) (no (unknown) (unknown) Chronic, (units (unkno wn) date) continuous use of unknown) opioids (unknown) (no (unknown) (unknown) : 1985 (units (unknown) date) Acct:[id number] unknown) (unknown) (no (unknown) (unknown) Depression (units (unk nown) date) unknown) (unknown) (no (unknown) (unknown) Dept at (units (unkno wn) date) . unknown) (unknown) (no (unknown) (unknown) Details: (units (unkno wn) date) unknown) (unknown) (no (unknown) (unknown) Diverticular (units (u nknown) date) disease () unknown) (unknown) (no (unknown) (unknown) Diverticulosis (units (unknown) date) site: unspecified unknown) location Diverticulosis bleeding: (unknown) (no (unknown) (unknown) Documented By: (units (unknown) date) Sterling Woods MD unknown) 09/19/22 1322 (unknown) (no (unknown) (unknown) Draft (units (unkno [...] date) Associates unknown) (unknown) (no (unknown) (unknown) Four days since (units (unknown) date) last bowel unknown) movement. Some minimal bm that is hard and small. (unknown) (no (unknown) (unknown) Gout (-2016) (units (u nknown) date) unknown) (unknown) (no (unknown) (unknown) H/O LEEP (units (unkno wn) date) unknown) (unknown) (no (unknown) (unknown) H/O laparoscopy (units (unknown) date) () unknown) (unknown) (no (unknown) (unknown) HPI (units (unkno wn) date) unknown) (unknown) (no (unknown) (unknown) Herpes () (units (unknown) date) unknown) (unknown) (no (unknown) (unknown) History of (units (unk nown) date) unknown) (-08/08/04) (unknown) (no (unknown) (unknown) History of known (units (unknown) date) diverticular unknown) disease, ongoing opiate use, uterine fibroids, (unknown) (no (unknown) (unknown) Human papilloma (units (unknown) date) virus () unknown) (unknown) (no (unknown) (unknown) Hyperlipidemia (units (unknown) date) unknown) (unknown) (no (unknown) (unknown) Hypertension (units (u nknown) date) unknown) (unknown) (no (unknown) (unknown) Intake (units (unkno wn) date) unknown) (unknown) (no (unknown) (unknown) Internal (units (unkno wn) date) Medicine Office unknown) Visit (unknown) (no (unknown) (unknown) Irritable bowel (units (unknown) date) syndrome () unknown) (unknown) (no (unknown) (unknown) Sterling Woods MD (units (unknown) date) + patient unknown) (unknown) (no (unknown) (unknown) Left ovarian (units (u nknown) date) cyst () unknown) (unknown) (no (unknown) (unknown) Loc: [facility] (units (unkno wn) date) unknown) (unknown) (no (unknown) (unknown) Location of (units (un known) date) patient:: unknown) Workplace (unknown) (no (unknown) (unknown) Location of (units (un known) date) provider:: [facility] unknown) [address] (unknown) (no (unknown) (unknown) [phone] (units (unk nown) date) unknown) (unknown) (no [...] ( unknown) date) Allergies Allergy unknown) (Verified 08/30/22 15:45) (unknown) (no (unknown) (unknown) PFSH (units (unkno wn) date) unknown) (unknown) (no (unknown) (unknown) Painful (units (unkno wn) date) menstrual periods unknown) (unknown) (no (unknown) (unknown) Patient (units (unkno wn) date) consented to unknown) receive services via telehealth?: Yes (unknown) (no (unknown) (unknown) Patient: (units (unkno wn) date) Griselda Cornejoia unknown) B MR#: (unknown) (no (unknown) (unknown) Plan (units (unkno wn) date) unknown) (unknown) (no (unknown) (unknown) Qualifiers: (units (un known) date) unknown) (unknown) (no (unknown) (unknown) Real-time,sychro (units (unknown) date) nous services unknown) were performed via:: Vsee (unknown) (no (unknown) (unknown) Reason For Visit (units (unknown) date) unknown) (unknown) (no (unknown) (unknown) Recommended (units (unk nown) date) aggressive unknown) resolution of constipation using a combination of MiraLax (unknown) (no (unknown) (unknown) Severe obesity (units [...] Rafael Mcgee MD) (unknown) (no (unknown) (unknown) TeleHealth (units (unk nown) date) unknown) (unknown) (no (unknown) (unknown) This note may (units ( unknown) date) have been all or unknown) partially generated using voice recognition (unknown) (no (unknown) (unknown) Tobacco + (units (unkn own) date) Substance Use unknown) (unknown) (no (unknown) (unknown) Tobacco Status (units (unknown) date) unknown) (unknown) (no (unknown) (unknown) Unspecified (units (un known) date) abdominal pain unknown) (unknown) (no (unknown) (unknown) Using high-fiber (units (unknown) date) diet, hydration, unknown) MiraLax, bisacodyl. Now complaining of (unknown) (no (unknown) (unknown) Visit Reasons: (units (unknown) date) VIDEO discuss unknown) abdominal pain/bloating*barbara al (unknown) (no (unknown) (unknown) Were services (units ( unknown) date) performed via unknown) telephone only?: No (unknown) (no (unknown) (unknown) alcohol intake: (units (unknown) date) current unknown) (unknown) (no (unknown) (unknown) and OTC saline (units (unknown) date) enema. Patient unknown) has multiple organic reasons to be constipated (unknown) (no (unknown) (unknown) and for (units (unkno wn) date) increased colonic unknown) pressure to cause significant lower abdominal (unknown) (no (unknown) (unknown) clinic if (units (unkno wn) date) constipation was unknown) resolved but symptoms in the chief complaint were not (unknown) (no (unknown) (unknown) combination of (units (unknown) date) osmotic laxatives unknown) and enema. Also advised that she contact our (unknown) (no (unknown) (unknown) constipation (units (u nknown) date) with unknown) [id number] lower abd pain. 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 unknown) (unknown) (no (unknown) (unknown) discomfort. (units (un known) date) Discussed that unknown) constipation needs to be resolved and the situation (unknown) (no (unknown) (unknown) diverticulosis (units (unknown) date) without bleeding unknown) Qualified Code(s): K57.90 - Diverticulosis of (unknown) (no (unknown) (unknown) have occurred. (units (unknown) date) If there are any unknown) questions, please contact the Medical Records (unknown) (no (unknown) (unknown) household (units (unkn own) date) members: family unknown) and children (unknown) (no (unknown) (unknown) improved within (units (unknown) date) 24 hours unknown) afterward. Consider diverticulitis as the most likely (unknown) (no (unknown) (unknown) intestine, part (units (unknown) date) unspecified, unknown) without perforation or abscess without bleeding (unknown) (no (unknown) (unknown) lower abdominal (units (unknown) date) adhesions, and unknown) mood disorder with IBS features. Now having (unknown) (no (unknown) (unknown) may occur. (units (unk nown) date) Occasional unknown) wrong-word or 'sound-alike' substitutions may have (unknown) (no (unknown) (unknown) occurred due to (units (unknown) date) the inherent unknown) limitations of voice recognition software. Please (unknown) (no (unknown) (unknown) read the note (units ( unknown) date) carefully and unknown) recognize, using context, where these substitutions (unknown) (no (unknown) (unknown) reassessed (units (unk nown) date) before any unknown) further workup is undertaken. Stated that she needed to (unknown) (no (unknown) (unknown) seek medical (units (u nknown) date) attention if unknown) constipation does not resolve by this evening using a (unknown) (no (unknown) (unknown) software. (units (unkn own) date) Although every unknown) 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, financial services 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 (unknown) (no (unknown) (unknown) subjective (units (unk nown) date) fever, lower unknown) abdominal pain, early satiety, nausea. Result panel 17 (unknown) (no (unknown) (unknown) (no value) (units (unk nown) date) unknown) (unknown) (no (unknown) (unknown) (1) Abdominal (units ( unknown) date) pain: unknown) (unknown) (no (unknown) (unknown) (2) Diverticular (units (unknown) date) disease: unknown) (unknown) (no (unknown) (unknown) (3) Constipation (units (unknown) date) by delayed unknown) colonic transit: (unknown) (no (unknown) (unknown) 09/19/22 1344 (units ( unknown) date) unknown) (unknown) (no (unknown) (unknown) 09/19/22 (units (unkno wn) date) unknown) (unknown) (no [...] xray () unknown) (unknown) (no (unknown) (unknown) Affect: normal (units (unknown) date) affect unknown) (unknown) (no (unknown) (unknown) Age/Sex: 36 / F (units (unknown) date) Date of Service: unknown) (unknown) (no (unknown) (unknown) All participants (units (unknown) date) + their role: unknown) (Providers,Parent ,Spouse,etc): (unknown) (no (unknown) (unknown) All systems (units (un known) date) reviewed + are unknown) unremarkable except as noted in HPI and below (unknown) (no (unknown) (unknown) Allergies (units (unkn own) date) unknown) (unknown) (no (unknown) (unknown) [place], [place] (units ( unknown) date) [id number] unknown) (unknown) (no (unknown) (unknown) Anesthesia (units [...] (unknown) Attending Dr: (units ( unknown) date) Sterling Woods MD unknown) (unknown) (no (unknown) (unknown) Attitude: (units (unkn own) date) cooperative unknown) (unknown) (no (unknown) (unknown) Carpal tunnel (units ( unknown) date) syndrome () unknown) (unknown) (no (unknown) (unknown) Cervical cancer (units (unknown) date) () unknown) (unknown) (no (unknown) (unknown) Grgltcy-Hizjr-Xc (units (unknown) date) oth disease unknown) (unknown) (no (unknown) (unknown) Chief Complaint (units (unknown) date) unknown) (unknown) (no (unknown) (unknown) Chief Complaint: (units (unknown) date) Lower abdominal unknown) pain (unknown) (no (unknown) (unknown) Chlamydia (units (unkn own) date) () unknown) (unknown) (no (unknown) (unknown) Chronic insomnia (units (unknown) date) unknown) (unknown) (no (unknown) (unknown) Chronic low back (units (unknown) date) pain () unknown) (unknown) (no (unknown) (unknown) Chronic, (units (unkno wn) date) continuous use of unknown) opioids (unknown) (no (unknown) (unknown) Const (units (unkno wn) date) unknown) (unknown) (no (unknown) (unknown) : 1985 (units (unknown) date) Acct:[id number] unknown) (unknown) (no (unknown) (unknown) Depression (units (unk nown) date) unknown) (unknown) (no (unknown) (unknown) Dept at (units (unkno wn) date) . unknown) (unknown) (no (unknown) (unknown) Details: (units (unkno wn) date) unknown) (unknown) (no (unknown) (unknown) Diverticular (units (u nknown) date) disease () unknown) (unknown) (no (unknown) (unknown) Diverticulosis (units (unknown) date) site: unspecified unknown) location Diverticulosis bleeding: (unknown) (no (unknown) (unknown) Documented By: (units (unknown) date) Sterling Woods MD unknown) 09/19/22 1322 (unknown) (no (unknown) (unknown) Effort + (units (unkno wn) date) Inspection: unknown) normal respiratory effort, able to speak in complete (unknown) (no [...] date) Associates unknown) (unknown) (no (unknown) (unknown) General: (units (unkno wn) date) cooperative, unknown) healthy appearing, uncomfortable and no acute distress (unknown) (no (unknown) (unknown) Gout () (units (u nknown) date) unknown) (unknown) (no (unknown) (unknown) H/O LEEP (units (unkno wn) date) unknown) (unknown) (no (unknown) (unknown) H/O laparoscopy (units (unknown) date) () unknown) (unknown) (no (unknown) (unknown) HPI (units (unkno wn) date) unknown) (unknown) (no (unknown) (unknown) Herpes () (units (unknown) date) unknown) (unknown) (no (unknown) (unknown) History of (units (unk nown) date) unknown) (-08/08/04) (unknown) (no (unknown) (unknown) History of known (units (unknown) date) diverticular unknown) disease, ongoing opiate use, uterine fibroids, (unknown) (no (unknown) (unknown) Human papilloma (units (unknown) date) virus () unknown) (unknown) (no (unknown) (unknown) Hyperlipidemia (units (unknown) date) unknown) (unknown) (no (unknown) (unknown) Hypertension (units (u nknown) date) unknown) (unknown) (no (unknown) (unknown) Intake (units (unkno wn) date) unknown) (unknown) (no (unknown) (unknown) Internal (units (unkno wn) date) Medicine Office unknown) Visit (unknown) (no (unknown) (unknown) Irritable bowel (units (unknown) date) syndrome () unknown) (unknown) (no (unknown) (unknown) Sterling Woods MD (units (unknown) date) + patient unknown) (unknown) (no (unknown) (unknown) Judgment: (units (unkn own) date) judgment good unknown) (unknown) (no (unknown) (unknown) Left ovarian (units (u nknown) date) cyst () unknown) (unknown) (no (unknown) (unknown) Loc: [facility] (units (unkno wn) date) unknown) (unknown) (no (unknown) (unknown) Location of (units (un known) date) patient:: unknown) Workplace (unknown) (no (unknown) (unknown) Location of (units (un known) date) provider:: [facility] [address] (unknown) (no (unknown) (unknown) [phone] (units (unk nown) date) unknown) (unknown) (no (unknown) (unknown) Medical History (units (unknown) date) (Reviewed unknown) 08/02/22 @ 05:44 by Rafael Mcgee MD) (unknown) (no (unknown) (unknown) Mental Status: (units (unknown) date) mental status unknown) grossly normal (unknown) (no (unknown) (unknown) Mental health (units ( unknown) date) problem unknown) (unknown) (no (unknown) (unknown) Migraines (units (unkn own) date) (-2003) unknown) (unknown) (no (unknown) (unknown) Mood: congruent (units (unknown) date) mood unknown) (unknown) (no (unknown) (unknown) Mother Diabetes (units (unknown) date) mellitus unknown) (unknown) (no (unknown) (unknown) Ms. Cornejo is (units (unknown) date) calling to unknown) discuss lower abdominal pain. Her regular provider (unknown) (no (unknown) (unknown) No Known Drug (units ( unknown) date) Allergies Allergy unknown) (Verified 08/30/22 15:45) (unknown) (no (unknown) (unknown) Nutritional (units (un known) date) Appearance: unknown) overweight (unknown) (no (unknown) (unknown) Orientation: (units (u nknown) date) oriented x3 unknown) (unknown) (no (unknown) (unknown) PFSH (units (unkno wn) date) unknown) (unknown) (no (unknown) (unknown) Painful (units (unkno wn) date) menstrual periods unknown) (unknown) (no (unknown) (unknown) Patient (units (unkno wn) date) consented to unknown) receive services via telehealth?: Yes (unknown) (no (unknown) (unknown) Patient presents (units (unknown) date) with a chronic unknown) disease demonstrating exacerbation. Assessment (unknown) (no (unknown) (unknown) Patient: (units (unkno wn) date) Kenyetta Cornejo unknown) B MR#: (unknown) (no (unknown) (unknown) Plan (units (unkno wn) date) unknown) (unknown) (no (unknown) (unknown) Psych (units (unkno wn) date) unknown) (unknown) (no (unknown) (unknown) Qualifiers: (units (un known) date) unknown) (unknown) (no (unknown) (unknown) ROS (units (unkno wn) date) unknown) (unknown) (no (unknown) (unknown) Real-time,sychro (units (unknown) date) nous services unknown) were performed via:: Vsee (unknown) (no (unknown) (unknown) Reason For Visit (units (unknown) date) unknown) (unknown) (no (unknown) (unknown) Recommended (units (unk nown) date) aggressive unknown) resolution of constipation using a combination of MiraLax (unknown) (no (unknown) (unknown) Resp (units (unkno wn) date) unknown) (unknown) (no (unknown) (unknown) Severe obesity (units (unknown) date) (BMI >= 40) unknown) (unknown) (no (unknown) (unknown) Shortness of (units (u nknown) date) breath unknown) (unknown) (no (unknown) (unknown) Signed By: (units (unk nown) date) <Electronically unknown) signed by Sterling Woods MD> (unknown) (no (unknown) (unknown) Signed (units [...] Rafael Mcgee MD) (unknown) (no (unknown) (unknown) TeleHealth (units (unk nown) date) unknown) (unknown) (no (unknown) (unknown) This [...] (unknown) date) unknown) (unknown) (no (unknown) (unknown) Unspecified (units (un known) date) abdominal pain unknown) (unknown) (no (unknown) (unknown) Visit Reasons: (units (unknown) date) VIDEO discuss unknown) abdominal pain/bloating*barbara al (unknown) (no (unknown) (unknown) Were services (units ( unknown) date) performed via unknown) telephone only?: No (unknown) (no (unknown) (unknown) alcohol intake: (units (unknown) date) current unknown) (unknown) (no (unknown) (unknown) and OTC saline (units (unknown) date) enema. Patient unknown) has multiple organic reasons to be constipated (unknown) (no (unknown) (unknown) and for (units (unkno wn) date) increased colonic unknown) pressure to cause significant lower abdominal (unknown) (no (unknown) (unknown) can become a (units (u nknown) date) surgical unknown) emergency if not aggressively managed. (unknown) (no (unknown) (unknown) clinic if (units (unkno wn) date) constipation was unknown) resolved but symptoms in the chief complaint were not (unknown) (no (unknown) (unknown) combination of (units (unknown) date) osmotic laxatives unknown) and enema. Also advised that she contact our (unknown) (no (unknown) (unknown) constipation (units (u nknown) date) with unknown) [id number] lower abd pain. 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 unknown) (unknown) (no (unknown) (unknown) discomfort. (units (un known) date) Discussed that unknown) constipation needs to be resolved and the situation (unknown) (no (unknown) (unknown) diverticulosis (units (unknown) date) without bleeding unknown) Qualified Code(s): K57.90 - Diverticulosis of (unknown) (no (unknown) (unknown) fever, lower (units (u nknown) date) abdominal pain, unknown) early satiety, nausea. (unknown) (no (unknown) (unknown) have occurred. (units (unknown) date) If there are any unknown) questions, please contact the Medical Records (unknown) (no (unknown) (unknown) household (units (unkn own) date) members: family unknown) and children (unknown) (no (unknown) (unknown) hydration, (units (unk nown) date) MiraLax, unknown) bisacodyl without resolution. Now complaining of subjective (unknown) (no (unknown) (unknown) improved within (units (unknown) date) 24 hours unknown) afterward. Consider diverticulitis as the most likely (unknown) (no (unknown) (unknown) intestine, part (units (unknown) date) unspecified, unknown) without perforation or abscess without bleeding (unknown) (no (unknown) (unknown) involves review (units (unknown) date) of prior PCP unknown) records and specialty documentation. She is at (unknown) (no (unknown) (unknown) is not available (units (unknown) date) today. unknown) (unknown) (no (unknown) (unknown) lower abdominal (units (unknown) date) adhesions, and unknown) mood disorder with IBS features. Now having (unknown) (no (unknown) (unknown) may occur. (units (unk nown) date) Occasional unknown) wrong-word or 'sound-alike' substitutions may have (unknown) (no (unknown) (unknown) moderate risk of (units (unknown) date) morbidity from unknown) this illness as it tends to be progressive and (unknown) (no (unknown) (unknown) movement. Some (units (unknown) date) minimal BM that unknown) is hard and small. Using high-fiber diet, (unknown) (no (unknown) (unknown) occurred due to (units (unknown) date) the inherent unknown) limitations of voice recognition software. Please (unknown) (no (unknown) (unknown) read the note (units ( unknown) date) carefully and unknown) recognize, using context, where these substitutions (unknown) (no (unknown) (unknown) reassessed (units (unk nown) date) before any unknown) further workup is undertaken. Stated that she needed to (unknown) (no (unknown) (unknown) seek medical (units (u nknown) date) attention if unknown) constipation does not resolve by this evening using a (unknown) (no (unknown) (unknown) sentences and no (units (unknown) date) audible wheezes unknown) (unknown) (no (unknown) (unknown) software. (units (unkn own) date) Although every unknown) 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, financial services 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 Result panel 18 (unknown) (no (unknown) (unknown) (no value) (units (unk nown) date) unknown) (unknown) (no (unknown) (unknown) (1) Abdominal (units ( unknown) date) pain: unknown) (unknown) (no (unknown) (unknown) (10) Chronic low (units (unknown) date) back pain: unknown) (unknown) (no (unknown) (unknown) (11) Chronic, (units ( unknown) date) continuous use of unknown) opioids: (unknown) (no (unknown) (unknown) (12) Right knee (units (unknown) date) pain: unknown) (unknown) (no (unknown) (unknown) (13) Severe (units (un known) date) obesity (BMI >= unknown) 40): (unknown) (no (unknown) (unknown) (2) Slow transit (units (unknown) date) constipation: unknown) (unknown) (no (unknown) (unknown) (3) Diverticular (units (unknown) date) disease: unknown) (unknown) (no (unknown) (unknown) (4) Adenomyosis of (units (unknown) date) uterus: unknown) (unknown) (no (unknown) (unknown) (5) Sleep apnea: (units (unknown) date) unknown) (unknown) (no (unknown) (unknown) (6) Other fatigue: (units (unknown) date) unknown) (unknown) (no (unknown) (unknown) (7) Chronic (units (un known) date) insomnia: unknown) (unknown) (no (unknown) (unknown) (8) Fibroids: (units ( unknown) date) unknown) (unknown) (no (unknown) (unknown) (9) Left ovarian (units (unknown) date) cyst: unknown) (unknown) (no (unknown) (unknown) (units (unkno wn) date) unknown) (unknown) (no (unknown) (unknown) 09/21/22 (units (unkno wn) date) unknown) (unknown) (no (unknown) (unknown) 08/02/22 (units (unkno wn) date) unknown) (unknown) (no (unknown) (unknown) (units (unkno wn) date) unknown) (unknown) (no (unknown) (unknown) 12/28 (units (unkno wn) date) unknown) (unknown) (no [...] xray (-2014) unknown) (unknown) (no (unknown) (unknown) Adenomyosis/Abdomi (units [...] (units (unkno wn) date) Aminotransferase unknown) (ALT/SGPT) 19 IU/L (<35) 07/09 (unknown) (no (unknown) (unknown) Albumin 4.3 g/dL (units (unknown) date) (3.5-5.0) 08/02/22 unknown) (unknown) (no (unknown) (unknown) Albumin/Globulin (units (unknown) date) Ratio 1.3 (1.0-2.8) unknown) 08/02/22 (unknown) (no (unknown) (unknown) Alkaline (units (unkno wn) date) Phosphatase 38 U/L unknown) (38-126) 08/02/22 (unknown) (no (unknown) (unknown) All systems (units (un known) date) reviewed + are unknown) unremarkable except as noted in HPI and below (unknown) (no (unknown) (unknown) Allergies (units (unkn own) date) unknown) (unknown) (no (unknown) (unknown) [place], [place] (units ( unknown) date) [id number] unknown) (unknown) (no (unknown) (unknown) Anesthesia (units (unk nown) date) unknown) (unknown) (no (unknown) (unknown) Anxiety (units (unkno wn) date) unknown) (unknown) (no (unknown) (unknown) Anxiety: The (units (u nknown) date) patient reports unknown) symptoms are well controlled on current therapy. (unknown) (no (unknown) (unknown) Aspartate Amino (units (unknown) date) Transf (AST/SGOT) unknown) 23 IU/L (14-36) 08/02/ (unknown) (no (unknown) (unknown) Assessment + Plan (units (unknown) date) unknown) (unknown) (no (unknown) (unknown) Assessment and (units (unknown) date) Plan: unknown) (unknown) (no (unknown) (unknown) Asthma (units (unkno wn) date) unknown) (unknown) (no (unknown) (unknown) Attending Dr: (units ( unknown) date) Rafael Mcgee MD unknown) (unknown) (no (unknown) (unknown) BUN/Creatinine (units (unknown) date) Ratio 12.5 (6-22) unknown) 08/02/22 (unknown) (no (unknown) (unknown) Back pain (units (unkn own) date) laterality: unknown) bilateral Sciatica presence: with sciatica (unknown) (no (unknown) (unknown) Blood Urea (units (unk nown) date) Nitrogen 10 mg/dL unknown) (7-17) 08/02/22 (unknown) (no (unknown) (unknown) CARDIOVASCULAR: (units (unknown) date) Regular rate and unknown) rhythm without murmurs, gallops, or rubs. (unknown) (no (unknown) (unknown) Calcium Level 8.9 (units (unknown) date) mg/dL (8.4-10.2) unknown) 08/02/22 (unknown) (no (unknown) (unknown) Carbon Dioxide (units (unknown) date) Level 31 mmol/L unknown) (22-32) 08/02/22 (unknown) (no (unknown) (unknown) Care per DEMO SPECIALIST at (units (unknown) date) this point. unknown) (unknown) (no (unknown) (unknown) Care reviewed. (units (unknown) date) unknown) (unknown) (no (unknown) (unknown) Carpal tunnel (units ( unknown) date) syndrome () unknown) (unknown) (no (unknown) (unknown) Cervical cancer (units (unknown) date) (-2002) unknown) (unknown) (no (unknown) (unknown) Qijxudv-Gsesy-Yxvw (units (unknown) date) h disease unknown) (unknown) (no (unknown) (unknown) Chief Complaint (units (unknown) date) unknown) (unknown) (no (unknown) (unknown) Chief Complaint: (units (unknown) date) Medical followup unknown) (unknown) (no (unknown) (unknown) Chlamydia (-2014) (units (unknown) date) unknown) (unknown) (no (unknown) (unknown) Chloride Level 101 (units (unknown) date) mmol/L (98-107) unknown) 08/02/22 (unknown) (no (unknown) (unknown) Cholesterol Level (units (unknown) date) 161 mg/dL (140-199) unknown) 08/02/22 (unknown) (no (unknown) (unknown) Chronic Low Back [...] of unknown) opioids (unknown) (no (unknown) (unknown) Clinically stable. (units (unknown) date) Continue current unknown) plan. (unknown) (no (unknown) (unknown) [facility] (units (unk nown) date) Results- Last: unknown) (unknown) (no (unknown) (unknown) Const (units (unkno wn) date) unknown) (unknown) (no (unknown) (unknown) Consume fewer (units ( unknown) date) calories (eat less) unknown) and burn more calories (move more) to achieve (unknown) (no (unknown) (unknown) Creatinine 0.80 (units (unknown) date) mg/dL (0.52-1.04) unknown) 08/02/22 (unknown) (no (unknown) (unknown) D25.9 - Leiomyoma (units (unknown) date) of uterus, unknown) unspecified (unknown) (no (unknown) (unknown) DERMATOLOGIC: No (units (unknown) date) rashes or skin unknown) lesions. (unknown) (no (unknown) (unknown) : 1985 (units (unknown) date) Acct:[id number] unknown) (unknown) (no (unknown) (unknown) Depression (units (unk nown) date) unknown) (unknown) (no (unknown) (unknown) Dept at (units (unkno wn) date) . unknown) (unknown) (no (unknown) (unknown) Details: (units (unkno wn) date) unknown) (unknown) (no (unknown) (unknown) Diverticular (units (u nknown) date) disease () unknown) (unknown) (no (unknown) (unknown) Diverticulosis (units (unknown) date) site: unspecified unknown) location Diverticulosis bleeding: (unknown) (no (unknown) (unknown) Documented By: (units (unknown) date) Rafael Mcgee MD unknown) 10/08/22 0634 (unknown) (no (unknown) (unknown) Draft (units (unkno wn) date) unknown) (unknown) (no (unknown) (unknown) ENT: Mucous (units (un known) date) membranes pink and unknown) moist. (unknown) (no (unknown) (unknown) EXTREMITIES: No (units (unknown) date) clubbing, cyanosis, unknown) or edema. (unknown) (no (unknown) (unknown) EYES: Pupils equal (units (unknown) date) round and reactive. unknown) Extraocular motions intact. No scleral (unknown) (no (unknown) (unknown) Estimat Glomerular (units (unknown) date) Filtration Rate > unknown) 60 mL/min (>60) 08/02 (unknown) (no (unknown) (unknown) Exam Narrative (units (unknown) date) unknown) (unknown) (no (unknown) (unknown) Exam Narrative: (units (unknown) date) unknown) (unknown) (no (unknown) (unknown) Exam (units (unkno wn) date) unknown) (unknown) (no (unknown) (unknown) Family History (units (unknown) date) (Reviewed 10/08/22 unknown) @ 06:34 by Rafael Mcgee MD) (unknown) (no (unknown) [...] no apparent (unknown) (no (unknown) (unknown) Globulin 3.2 g/dL (units (unknown) date) (1.7-4.1) 08/02/22 unknown) (unknown) (no (unknown) (unknown) Glucose Level 92 (units (unknown) date) mg/dL (70-100) unknown) 08/02/22 (unknown) (no (unknown) (unknown) Gout (-2016) (units (u nknown) date) unknown) (unknown) (no (unknown) (unknown) H/O LEEP (units (unkno wn) date) unknown) (unknown) (no (unknown) (unknown) H/O laparoscopy (units (unknown) date) (-2009) unknown) (unknown) (no (unknown) (unknown) HDL Cholesterol 38 (units (unknown) date) mg/dL (40-60) L unknown) 08/02/22 (unknown) (no (unknown) (unknown) HPI (units (unkno wn) date) unknown) (unknown) (no (unknown) (unknown) Hematocrit 39.8 % (units (unknown) date) (36-46) 08/02/22 unknown) (unknown) (no (unknown) (unknown) Hemoglobin 13.3 (units (unknown) date) g/dL (12.0-16.0) unknown) 08/02/22 (unknown) (no (unknown) (unknown) Herpes (-2019) (units (unknown) date) unknown) (unknown) (no (unknown) (unknown) History of (units (unk nown) date) unknown) (-08/08/04) (unknown) (no (unknown) (unknown) Human papilloma (units (unknown) date) virus (-2002) unknown) (unknown) (no (unknown) (unknown) Hyperlipidemia (units (unknown) date) unknown) (unknown) (no (unknown) (unknown) Hypertension (units (u nknown) date) unknown) (unknown) (no (unknown) (unknown) Intake (units (unkno wn) date) unknown) (unknown) (no (unknown) (unknown) Internal Medicine (units (unknown) date) Office Visit unknown) (unknown) (no (unknown) (unknown) Irritable bowel (units (unknown) date) syndrome () unknown) (unknown) (no (unknown) (unknown) It was very nice (units (unknown) date) to meet with you unknown) today! (unknown) (no (unknown) (unknown) LDL Cholesterol, (units (unknown) date) Calculated 108 unknown) mg/dL (<100) H 08/02/22 (unknown) (no (unknown) (unknown) Lab Results (units [...] issues with gait. (unknown) (no (unknown) (unknown) Loc: [facility] (units (unkno wn) date) unknown) (unknown) (no (unknown) (unknown) [id number] (units (unk nown) date) unknown) (unknown) (no (unknown) (unknown) MUSCULOSKELETAL: (units (unknown) date) Right knee with unknown) FROM, no swelling, warmth, erythema or (unknown) (no (unknown) (unknown) Major depression:? (units (unknown) date) The patient reports unknown) good compliance with bupropion and (unknown) (no (unknown) (unknown) Mean Corpuscular (units (unknown) date) Hemoglobin 29.0 PG unknown) (26-34) 08/02/22 (unknown) (no (unknown) (unknown) Mean Corpuscular (units (unknown) date) Hemoglobin Concent unknown) 33.4 % (30-36) 07/09 (unknown) (no (unknown) (unknown) Mean Corpuscular (units (unknown) date) Volume 87.0 fL unknown) (80-100) 08/02/22 (unknown) (no (unknown) (unknown) Medical History (units (unknown) date) (Updated 10/08/22 @ unknown) 06:37 by Rafael Mcgee MD) (unknown) (no (unknown) [...] ( unknown) date) Allergies Allergy unknown) (Verified 08/30/22 15:45) (unknown) (no (unknown) (unknown) PFSH (units (unkno wn) date) unknown) (unknown) (no (unknown) (unknown) Patient: (units (unkno wn) date) Kenyetta Corneoj B unknown) MR#: (unknown) (no (unknown) (unknown) Plan (units (unkno wn) date) unknown) (unknown) (no (unknown) (unknown) Platelet Count 176 (units (unknown) date) X103/uL (150-400) unknown) 08/02/22 (unknown) (no (unknown) (unknown) Potassium Level (units (unknown) date) 4.5 mmol/L unknown) (3.4-5.1) 08/02/22 (unknown) (no (unknown) (unknown) Qualifiers: (units (un known) date) unknown) (unknown) (no (unknown) (unknown) RESPIRATORY: Clear (units (unknown) date) to auscultation. unknown) (unknown) (no (unknown) (unknown) ROS (units (unkno wn) date) unknown) (unknown) (no (unknown) (unknown) Reason For Visit (units (unknown) date) unknown) (unknown) (no (unknown) (unknown) Red Blood Count (units (unknown) date) 4.57 X106/uL unknown) (4.0-5.2) 08/02/22 (unknown) (no (unknown) (unknown) Red Cell (units (unkno wn) date) Distribution Width unknown) 12.2 % (11.6-14.8) 08/02/22 (unknown) (no (unknown) (unknown) Right knee pain: [...] xrays unknown) at the walk-in clinic in [place] and (unknown) (no (unknown) (unknown) Signed By: (units [...] adequately controlled on (unknown) (no (unknown) (unknown) Slow transit (units (u nknown) date) constipation unknown) (unknown) (no (unknown) (unknown) Smoking Status: (units (unknown) date) Former smoker unknown) (unknown) (no (unknown) (unknown) Social History (units (unknown) date) unknown) (unknown) (no (unknown) (unknown) Sodium Level 139 (units (unknown) date) mmol/L (137-145) unknown) 08/02/22 (unknown) (no (unknown) (unknown) Status post right (units (unknown) date) foot surgery unknown) (-2000) (unknown) (no (unknown) (unknown) Status: Acute (units ( unknown) date) unknown) (unknown) (no (unknown) (unknown) Suboxone. She is (units (unknown) date) followed by unknownAsmita Caruso at the [facility] with (unknown) (no (unknown) (unknown) Surgical History (units (unknown) date) (Reviewed 10/08/22 unknown) @ 06:34 by Rafael Mcgee MD) (unknown) (no (unknown) (unknown) This note may have (units (unknown) date) been all or unknown) partially generated using voice recognition (unknown) (no (unknown) (unknown) Thyroid (units (unkno wn) date) Stimulating Hormone unknown) (TSH) 3.35 uIU/mL (0.47-4.68) 0 (unknown) (no (unknown) (unknown) Tobacco + (units (unkn own) date) Substance Use unknown) (unknown) (no (unknown) (unknown) Tobacco Status (units (unknown) date) unknown) (unknown) (no (unknown) (unknown) Total Bilirubin (units (unknown) date) 0.2 mg/dL (0.2-1.3) unknown) 08/02/22 (unknown) (no (unknown) (unknown) Total Protein 7.5 (units (unknown) date) g/dL (6.3-8.2) unknown) 08/02/22 (unknown) (no (unknown) (unknown) Triglycerides (units ( unknown) date) Level 77 mg/dL unknown) (35-150) 08/02/22 (unknown) (no (unknown) (unknown) Unspecified (units (un known) date) abdominal pain unknown) (unknown) (no (unknown) (unknown) Uterine leiomyoma (units (unknown) date) location: unknown) unspecified location Qualified Code(s): (unknown) (no (unknown) (unknown) Visit Reasons: (units (unknown) date) stomach follow up unknown) 03 (unknown) (no (unknown) (unknown) Weight loss (units (un known) date) education provided. unknown) (unknown) (no (unknown) (unknown) White Blood Count (units (unknown) date) 6.2 X103/uL unknown) (4.5-11.0) 08/02/22 (unknown) (no (unknown) (unknown) You are referred [...] Continue your current (unknown) (no (unknown) (unknown) adverse side (units (u nknown) date) effects. The pain unknown) medication is allowing for an increased overall (unknown) (no (unknown) (unknown) after difficult (units (unknown) date) labor delivering unknown) her son, treated with various medications which (unknown) (no (unknown) (unknown) alcohol intake: (units (unknown) date) current unknown) (unknown) (no (unknown) (unknown) apnea, unspecified (units (unknown) date) unknown) (unknown) (no (unknown) (unknown) at any time. Her (units (unknown) date) mother told her in unknown) infancy she had trouble breathing. No (unknown) (no (unknown) (unknown) behaviors, signs (units (unknown) date) of addiction, or unknown) rapid development of tolerance.?She is (unknown) (no (unknown) (unknown) breath. She was (units (unknown) date) referred to unknown) gynecology. (unknown) (no (unknown) (unknown) concentration. The (units (unknown) date) patient has good unknown) motivation. (unknown) (no (unknown) (unknown) condition is (units (u nknown) date) improved. unknown) (unknown) (no (unknown) (unknown) days weekly for (units (unknown) date) 30-60 minutes and unknown) limiting fats. Work on your 'energy equation'. 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 She has pain in the knee waking (unknown) (no (unknown) (unknown) distress. (units (unkn own) date) unknown) (unknown) (no (unknown) (unknown) diverticulosis (units (unknown) date) without bleeding unknown) Qualified Code(s): K57.90 - Diverticulosis of (unknown) (no (unknown) (unknown) duloxetine added (units [...] history of alcoholism. (unknown) (no (unknown) (unknown) household members: (units (unknown) date) family and children unknown) (unknown) (no (unknown) (unknown) icterus. No (units (un known) date) injection or unknown) drainage. (unknown) (no (unknown) (unknown) in sleep, awaken (units (unknown) date) to urinate, jerking unknown) awake), fatigue and requests a referral to (unknown) (no (unknown) (unknown) in the night with (units (unknown) date) turning over in unknown) bed, as well as during the day when walking. (unknown) (no (unknown) (unknown) intestine, part (units (unknown) date) unspecified, unknown) without perforation or abscess without bleeding (unknown) (no (unknown) (unknown) kratom in 2018 [...] nknown) date) unknown) (unknown) (no (unknown) (unknown) read the [...] (unknown) date) symptoms with unknown) diarrhea at [facility] with a low potassium and CT (unknown) (no (unknown) (unknown) sleep center. She (units (unknown) date) states she is very unknown) tired during the day and could fall asleep (unknown) (no (unknown) (unknown) software. 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 [...] shortness of (unknown) (no (unknown) (unknown) trazodone uses 2-4 (units (unknown) date) times weekly. She unknown) reports sleeping issues (snoring, talking (unknown) (no (unknown) (unknown) troubles, (units (unkn own) date) anhedonia, social unknown) withdrawal, or trouble with memory, focus, or (unknown) (no (unknown) (unknown) with kneecaps over [...] (units (unknown) date) goals. unknown) Result panel 19 (unknown) (no (unknown) (unknown) (no value) (units (unk nown) date) unknown) (unknown) (no (unknown) (unknown) (1) Abdominal (units ( unknown) date) pain: unknown) (unknown) (no (unknown) (unknown) (10) Chronic low (units (unknown) date) back pain: unknown) (unknown) (no (unknown) (unknown) (11) Chronic, (units ( unknown) date) continuous use of unknown) opioids: (unknown) (no (unknown) (unknown) (12) Right knee (units (unknown) date) pain: unknown) (unknown) (no (unknown) (unknown) (13) Severe (units (un known) date) obesity (BMI >= unknown) 40): (unknown) (no (unknown) (unknown) (2) Slow transit (units (unknown) date) constipation: unknown) (unknown) (no (unknown) (unknown) (3) Diverticular (units (unknown) date) disease: unknown) (unknown) (no (unknown) (unknown) (4) Adenomyosis of (units (unknown) date) uterus: unknown) (unknown) (no (unknown) (unknown) (5) Sleep apnea: (units (unknown) date) unknown) (unknown) (no (unknown) (unknown) (6) Other fatigue: (units (unknown) date) unknown) (unknown) (no (unknown) (unknown) (7) Chronic (units (un known) date) insomnia: unknown) (unknown) (no (unknown) (unknown) (8) Fibroids: (units ( unknown) date) unknown) (unknown) (no (unknown) (unknown) (9) Left ovarian (units (unknown) date) cyst: unknown) (unknown) (no (unknown) (unknown) (units (unkno wn) date) unknown) (unknown) (no (unknown) (unknown) 09/21/22 (units (unkno wn) date) unknown) (unknown) (no (unknown) (unknown) 08/02/22 (units (unkno wn) date) unknown) (unknown) (no (unknown) (unknown) (units (unkno wn) date) unknown) (unknown) (no (unknown) (unknown) 12/28 (units (unkno wn) date) unknown) (unknown) (no [...] xray (-2014) unknown) (unknown) (no (unknown) (unknown) Adenomyosis/Abdomi (units [...] (units (unkno wn) date) Aminotransferase unknown) (ALT/SGPT) 19 IU/L (<35) 07/09 (unknown) (no (unknown) (unknown) Albumin 4.3 g/dL (units (unknown) date) (3.5-5.0) 08/02/22 unknown) (unknown) (no (unknown) (unknown) Albumin/Globulin (units (unknown) date) Ratio 1.3 (1.0-2.8) unknown) 08/02/22 (unknown) (no (unknown) (unknown) Alkaline (units (unkno wn) date) Phosphatase 38 U/L unknown) (38-126) 08/02/22 (unknown) (no (unknown) (unknown) All systems (units (un known) date) reviewed + are unknown) unremarkable except as noted in HPI and below (unknown) (no (unknown) (unknown) Allergies (units (unkn own) date) unknown) (unknown) (no (unknown) (unknown) [place], [place] (units ( unknown) date) [id number] unknown) (unknown) (no (unknown) (unknown) Anesthesia (units (unk nown) date) unknown) (unknown) (no (unknown) (unknown) Anxiety (units (unkno wn) date) unknown) (unknown) (no (unknown) (unknown) Anxiety: The (units (u nknown) date) patient reports unknown) symptoms are well controlled on current therapy. (unknown) (no (unknown) (unknown) Aspartate Amino (units (unknown) date) Transf (AST/SGOT) unknown) 23 IU/L (14-36) 08/02/ (unknown) (no (unknown) (unknown) Assessment + Plan (units (unknown) date) unknown) (unknown) (no (unknown) (unknown) Assessment and (units (unknown) date) Plan: unknown) (unknown) (no (unknown) (unknown) Asthma (units (unkno wn) date) unknown) (unknown) (no (unknown) (unknown) Attending Dr: (units ( unknown) date) Rafael Mcgee MD unknown) (unknown) (no (unknown) (unknown) BUN/Creatinine (units (unknown) date) Ratio 12.5 (6-22) unknown) 08/02/22 (unknown) (no (unknown) (unknown) Back pain (units (unkn own) date) laterality: unknown) bilateral Sciatica laterality: sciatica of right (unknown) (no (unknown) (unknown) Blood Urea (units (unk nown) date) Nitrogen 10 mg/dL unknown) (7-17) 08/02/22 (unknown) (no (unknown) (unknown) CARDIOVASCULAR: (units (unknown) date) Regular rate and unknown) rhythm without murmurs, gallops, or rubs. (unknown) (no (unknown) (unknown) Calcium Level 8.9 (units (unknown) date) mg/dL (8.4-10.2) unknown) 08/02/22 (unknown) (no (unknown) (unknown) Carbon Dioxide (units (unknown) date) Level 31 mmol/L unknown) (22-32) 08/02/22 (unknown) (no (unknown) (unknown) Care per DEMO SPECIALIST at (units (unknown) date) this point. unknown) (unknown) (no (unknown) (unknown) Care reviewed. (units (unknown) date) unknown) (unknown) (no (unknown) (unknown) Carpal tunnel (units ( unknown) date) syndrome () unknown) (unknown) (no (unknown) (unknown) Cervical cancer (units (unknown) date) (-2002) unknown) (unknown) (no (unknown) (unknown) Dakihvb-Exrrh-Swbr (units (unknown) date) h disease unknown) (unknown) (no (unknown) (unknown) Chief Complaint (units (unknown) date) unknown) (unknown) (no (unknown) (unknown) Chief Complaint: (units (unknown) date) Medical followup unknown) (unknown) (no (unknown) (unknown) Chlamydia (-2014) (units (unknown) date) unknown) (unknown) (no (unknown) (unknown) Chloride Level 101 (units (unknown) date) mmol/L (98-107) unknown) 08/02/22 (unknown) (no (unknown) (unknown) Cholesterol Level (units (unknown) date) 161 mg/dL (140-199) unknown) 08/02/22 (unknown) (no (unknown) (unknown) Chronic Low Back [...] of unknown) opioids (unknown) (no (unknown) (unknown) Clinically stable. (units (unknown) date) Continue current unknown) plan. (unknown) (no (unknown) (unknown) [facility] Lab (units (unk nown) date) Results- Last: unknown) (unknown) (no (unknown) (unknown) Const (units (unkno wn) date) unknown) (unknown) (no (unknown) (unknown) Consume fewer (units ( unknown) date) calories (eat less) unknown) and burn more calories (move more) to achieve (unknown) (no (unknown) (unknown) Creatinine 0.80 (units (unknown) date) mg/dL (0.52-1.04) unknown) 08/02/22 (unknown) (no (unknown) (unknown) D25.9 - Leiomyoma (units (unknown) date) of uterus, unknown) unspecified (unknown) (no (unknown) (unknown) DERMATOLOGIC: No (units (unknown) date) rashes or skin unknown) lesions. (unknown) (no (unknown) (unknown) : 1985 (units (unknown) date) Acct:[id number] unknown) (unknown) (no (unknown) (unknown) Depression (units (unk nown) date) unknown) (unknown) (no (unknown) (unknown) Dept at (units (unkno wn) date) . unknown) (unknown) (no (unknown) (unknown) Details: (units (unkno wn) date) unknown) (unknown) (no (unknown) (unknown) Discuss/review. (units (unknown) date) unknown) (unknown) (no (unknown) (unknown) Diverticular (units (u nknown) date) disease () unknown) (unknown) (no (unknown) (unknown) Diverticulosis (units (unknown) date) bleeding: unknown) diverticulosis without bleeding Diverticulosis (unknown) (no (unknown) (unknown) Documented By: (units (unknown) date) Rafael Mcgee MD unknown) 10/08/22 0634 (unknown) (no (unknown) (unknown) Draft (units (unkno wn) date) unknown) (unknown) (no (unknown) (unknown) ENT: Mucous (units (un known) date) membranes pink and unknown) moist. (unknown) (no (unknown) (unknown) EXTREMITIES: No (units (unknown) date) clubbing, cyanosis, unknown) or edema. (unknown) (no (unknown) (unknown) EYES: Pupils equal (units (unknown) date) round and reactive. unknown) Extraocular motions intact. No scleral (unknown) (no (unknown) (unknown) Estimat Glomerular (units (unknown) date) Filtration Rate > unknown) 60 mL/min (>60) 08/02 (unknown) (no (unknown) (unknown) Exam Narrative (units (unknown) date) unknown) (unknown) (no (unknown) (unknown) Exam Narrative: (units (unknown) date) unknown) (unknown) (no (unknown) (unknown) Exam (units (unkno wn) date) unknown) (unknown) (no (unknown) (unknown) Family History (units (unknown) date) (Reviewed 10/08/22 unknown) @ 06:34 by Rafael Mcgee MD) (unknown) (no (unknown) (unknown) Father History of (units (unknown) date) heart disease unknown) (unknown) (no (unknown) (unknown) Fibromyalgia (units (u nknown) date) (-2016) unknown) (unknown) (no (unknown) (unknown) [facility]) (unknown) (no (unknown) (unknown) Follow up on (units (u nknown) date) abdominal pain. unknown) (unknown) (no (unknown) (unknown) Followup in [...] no apparent (unknown) (no (unknown) (unknown) Globulin 3.2 g/dL (units (unknown) date) (1.7-4.1) 08/02/22 unknown) (unknown) (no (unknown) (unknown) Glucose Level 92 (units (unknown) date) mg/dL (70-100) unknown) 08/02/22 (unknown) (no (unknown) (unknown) Gout (-2017) (units (u nknown) date) unknown) (unknown) (no (unknown) (unknown) H/O LEEP (units (unkno wn) date) unknown) (unknown) (no (unknown) (unknown) H/O laparoscopy (units (unknown) date) (-2009) unknown) (unknown) (no (unknown) (unknown) HDL Cholesterol 38 (units (unknown) date) mg/dL (40-60) L unknown) 08/02/22 (unknown) (no (unknown) (unknown) HPI (units (unkno wn) date) unknown) (unknown) (no (unknown) (unknown) Health Management (units (unknown) date) reviewed with unknown) patient: Yes (unknown) (no (unknown) (unknown) Health Management (units (unknown) date) unknown) (unknown) (no (unknown) (unknown) Hematocrit 39.8 % (units (unknown) date) (36-46) 08/02/22 unknown) (unknown) (no (unknown) (unknown) Hemoglobin 13.3 (units (unknown) date) g/dL (12.0-16.0) unknown) 08/02/22 (unknown) (no (unknown) (unknown) Herpes (-2018) (units [...] (unknown) Intake performed (units (unknown) date) by: Brina Donald unknown) (unknown) (no (unknown) (unknown) Intake (units [...] you unknown) today! (unknown) (no (unknown) (unknown) LDL Cholesterol, (units (unknown) date) Calculated 108 unknown) mg/dL (<100) H 08/02/22 (unknown) (no (unknown) (unknown) Lab Results (units (un known) date) unknown) (unknown) (no (unknown) (unknown) Labwork is ordered (units (unknown) date) today to evaluate unknown) your condition. Results will be posted to (unknown) (no (unknown) (unknown) Left ovarian cyst (units (unknown) date) (-2021) unknown) (unknown) (no (unknown) (unknown) Likely (units (unkno wn) date) biomechanical with unknown) chronic strain due to mal-alignment issues with gait. (unknown) (no (unknown) (unknown) Loc: [facility] (units (unkno wn) date) unknown) (unknown) (no (unknown) (unknown) [id number] (units (unk nown) date) unknown) (unknown) (no (unknown) (unknown) MUSCULOSKELETAL: (units (unknown) date) Right knee with unknown) FROM, no swelling, warmth, erythema or (unknown) (no (unknown) (unknown) Major depression:? (units (unknown) date) The patient reports unknown) good compliance with bupropion and (unknown) (no (unknown) (unknown) Mean Corpuscular (units (unknown) date) Hemoglobin 29.0 PG unknown) (26-34) 08/02/22 (unknown) (no (unknown) (unknown) Mean Corpuscular (units (unknown) date) Hemoglobin Concent unknown) 33.4 % (30-36) 07/09 (unknown) (no (unknown) (unknown) Mean Corpuscular (units (unknown) date) Volume 87.0 fL unknown) (80-100) 08/02/22 (unknown) (no (unknown) (unknown) Medical History (units (unknown) date) (Updated 10/08/22 @ unknown) 06:37 by Rafael Mcgee MD) (unknown) (no (unknown) [...] ( unknown) date) Allergies Allergy unknown) (Verified 10/08/22 08:18) (unknown) (no (unknown) (unknown) PFSH (units (unkno wn) date) unknown) (unknown) (no (unknown) (unknown) Patient: (units (unkno wn) date) Kenyetta Cornejo B unknown) MR#: (unknown) (no (unknown) (unknown) Plan (units (unkno wn) date) unknown) (unknown) (no (unknown) (unknown) Platelet Count 176 (units (unknown) date) X103/uL (150-400) unknown) 08/02/22 (unknown) (no (unknown) (unknown) Potassium Level (units (unknown) date) 4.5 mmol/L unknown) (3.4-5.1) 08/02/22 (unknown) (no (unknown) (unknown) Qualifiers: (units (un known) date) unknown) (unknown) (no (unknown) (unknown) RESPIRATORY: Clear (units (unknown) date) to auscultation. unknown) (unknown) (no (unknown) (unknown) ROS (units (unkno wn) date) unknown) (unknown) (no (unknown) (unknown) Reason For Visit (units (unknown) date) unknown) (unknown) (no (unknown) (unknown) Red Blood Count (units (unknown) date) 4.57 X106/uL unknown) (4.0-5.2) 08/02/22 (unknown) (no (unknown) (unknown) Red Cell (units (unkno wn) date) Distribution Width unknown) 12.2 % (11.6-14.8) 08/02/22 (unknown) (no (unknown) (unknown) Right knee pain: (units (unknown) date) The patient reports unknown) right knee pain the past couple of months. (unknown) (no (unknown) (unknown) Rule out metabolic (units (unknown) date) etiology. Evaluate unknown) as outlined below. (unknown) (no (unknown) (unknown) Rule out (units (unkno wn) date) obstructive versus unknown) central sleep apnea. (unknown) (no (unknown) (unknown) Severe obesity (units (unknown) date) (BMI >= 40) unknown) (unknown) (no (unknown) (unknown) She meditates and (units (unknown) date) enjoys plants. unknown) (unknown) (no (unknown) (unknown) She states she had (units (unknown) date) bloodwork and xrays unknown) at the walk-in clinic in [place] and (unknown) (no (unknown) (unknown) Signed By: (units [...] adequately controlled on (unknown) (no (unknown) (unknown) Slow transit (units (u nknown) date) constipation unknown) (unknown) (no (unknown) (unknown) Smoking Status: (units (unknown) date) Former smoker unknown) (unknown) (no (unknown) (unknown) Social History (units (unknown) date) unknown) (unknown) (no (unknown) (unknown) Sodium Level 139 (units (unknown) date) mmol/L (137-145) unknown) 08/02/22 (unknown) (no (unknown) (unknown) Status post right (units (unknown) date) foot surgery unknown) () (unknown) (no (unknown) (unknown) Status: Acute (units ( unknown) date) unknown) (unknown) (no (unknown) (unknown) Suboxone. She is (units (unknown) date) followed by unknown) [facility] with (unknown) (no (unknown) (unknown) Surgical History (units (unknown) date) (Reviewed 10/08/22 unknown) @ 06:34 by Rafael Mcgee MD) (unknown) (no (unknown) (unknown) This note may have (units (unknown) date) been all or unknown) partially generated using voice recognition (unknown) (no (unknown) (unknown) Thyroid (units (unkno wn) date) Stimulating Hormone unknown) (TSH) 3.35 uIU/mL (0.47-4.68) 0 (unknown) (no (unknown) (unknown) Tobacco + (units (unkn own) date) Substance Use unknown) (unknown) (no (unknown) (unknown) Tobacco Status (units (unknown) date) unknown) (unknown) (no (unknown) (unknown) Total Bilirubin (units (unknown) date) 0.2 mg/dL (0.2-1.3) unknown) 08/02/22 (unknown) (no (unknown) (unknown) Total Protein 7.5 (units (unknown) date) g/dL (6.3-8.2) unknown) 08/02/22 (unknown) (no (unknown) (unknown) Triglycerides (units ( unknown) date) Level 77 mg/dL unknown) (35-150) 08/02/22 (unknown) (no (unknown) (unknown) Unspecified (units (un known) date) abdominal pain unknown) (unknown) (no (unknown) (unknown) Uterine leiomyoma (units (unknown) date) location: unknown) unspecified location Qualified Code(s): (unknown) (no (unknown) (unknown) Visit Reasons: (units (unknown) date) stomach follow up unknown) 03 (unknown) (no (unknown) (unknown) Weight loss (units (un known) date) education provided. unknown) (unknown) (no (unknown) (unknown) White Blood Count (units (unknown) date) 6.2 X103/uL unknown) (4.5-11.0) 08/02/22 (unknown) (no (unknown) (unknown) You are referred [...] Continue your current (unknown) (no (unknown) (unknown) adverse side (units (u nknown) date) effects. The pain unknown) medication is allowing for an increased overall (unknown) (no (unknown) (unknown) after difficult (units (unknown) date) labor delivering unknown) her son, treated with various medications which (unknown) (no (unknown) (unknown) alcohol intake: (units (unknown) date) current unknown) (unknown) (no (unknown) (unknown) apnea, unspecified (units (unknown) date) unknown) (unknown) (no (unknown) (unknown) at any time. Her (units (unknown) date) mother told her in unknown) infancy she had trouble breathing. No (unknown) (no (unknown) (unknown) behaviors, signs (units (unknown) date) of addiction, or unknown) rapid development of tolerance.?She is (unknown) (no (unknown) (unknown) breath. She was (units (unknown) date) referred to unknown) gynecology. (unknown) (no (unknown) (unknown) concentration. The (units (unknown) date) patient has good unknown) motivation. (unknown) (no (unknown) (unknown) condition is (units (u nknown) date) improved. unknown) (unknown) (no (unknown) (unknown) days weekly for (units (unknown) date) 30-60 minutes and unknown) limiting fats. Work on your 'energy equation'. 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 She has pain in the knee waking (unknown) (no (unknown) (unknown) distress. (units (unkn own) date) unknown) (unknown) (no (unknown) (unknown) duloxetine added (units [...] history of alcoholism. (unknown) (no (unknown) (unknown) household members: (units (unknown) date) family and children unknown) (unknown) (no (unknown) (unknown) icterus. No (units (un known) date) injection or unknown) drainage. (unknown) (no (unknown) (unknown) in sleep, awaken (units (unknown) date) to urinate, jerking unknown) awake), fatigue and requests a referral to (unknown) (no (unknown) (unknown) in the night with (units (unknown) date) turning over in unknown) bed, as well as during the day when walking. (unknown) (no (unknown) (unknown) intestine, part (units (unknown) date) unspecified, unknown) without perforation or abscess without bleeding (unknown) (no (unknown) (unknown) kratom in 2018 [...] nknown) date) unknown) (unknown) (no (unknown) (unknown) read the [...] the past. She (unknown) (no (unknown) (unknown) sciatica, right (units (unknown) date) side; G89.29 - unknown) Other chronic pain (unknown) (no (unknown) (unknown) she weaned off as (units (unknown) date) they didn't seem unknown) particularly effective. She started using (unknown) (no (unknown) (unknown) side Sciatica (units ( unknown) date) presence: with unknown) sciatica Qualified Code(s): M54.41 - Lumbago with (unknown) (no (unknown) (unknown) sided sciatica. (units (unknown) date) Aggravating factors unknown) include rising from sitting, prolonged (unknown) (no (unknown) (unknown) similar more severe (units (unknown) date) symptoms with unknown) diarrhea at [facility] with a low potassium and CT (unknown) (no (unknown) (unknown) site: unspecified (units (unknown) date) location Qualified unknown) Code(s): K57.90 - Diverticulosis of (unknown) (no (unknown) (unknown) sleep center. She (units (unknown) date) states she is very unknown) tired during the day and could fall asleep (unknown) (no (unknown) (unknown) software. 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 [...] shortness of (unknown) (no (unknown) (unknown) trazodone uses 2-4 (units (unknown) date) times weekly. She unknown) reports sleeping issues (snoring, talking (unknown) (no (unknown) (unknown) troubles, (units (unkn own) date) anhedonia, social unknown) withdrawal, or trouble with memory, focus, or (unknown) (no (unknown) (unknown) with kneecaps over (units (unknown) date) big toes. Perform unknown) 15-20 repetitions 1-2 times daily. Maintain (unknown) (no (unknown) (unknown) you have any (units (u nknown) date) problems. unknown) (unknown) (no (unknown) (unknown) your weight loss (units (unknown) date) goals. unknown) Result panel 20 (unknown) (no (unknown) (unknown) (no value) (units (unk nown) date) unknown) (unknown) (no (unknown) (unknown) (1) Abdominal (units ( unknown) date) pain: unknown) (unknown) (no (unknown) (unknown) (10) Chronic low (units (unknown) date) back pain: unknown) (unknown) (no (unknown) (unknown) (11) Chronic, (units ( unknown) date) continuous use of unknown) opioids: (unknown) (no (unknown) (unknown) (12) Right knee (units (unknown) date) pain: unknown) (unknown) (no (unknown) (unknown) (13) Severe (units (un known) date) obesity (BMI >= unknown) 40): (unknown) (no (unknown) (unknown) (2) Slow transit (units (unknown) date) constipation: unknown) (unknown) (no (unknown) (unknown) (3) Diverticular (units (unknown) date) disease: unknown) (unknown) (no (unknown) (unknown) (4) Adenomyosis of (units (unknown) date) uterus: unknown) (unknown) (no (unknown) (unknown) (5) Sleep apnea: (units (unknown) date) unknown) (unknown) (no (unknown) (unknown) (6) Other fatigue: (units (unknown) date) unknown) (unknown) (no (unknown) (unknown) (7) Chronic (units (un known) date) insomnia: unknown) (unknown) (no (unknown) (unknown) (8) Fibroids: (units ( unknown) date) unknown) (unknown) (no (unknown) (unknown) (9) Left ovarian (units (unknown) date) cyst: unknown) (unknown) (no (unknown) (unknown) (units (unkno wn) date) unknown) (unknown) (no (unknown) (unknown) 09/21/22 (units (unkno wn) date) unknown) (unknown) (no (unknown) (unknown) 10/08/22] (units (unkn own) date) unknown) (unknown) (no (unknown) (unknown) 08/02/22 (units (unkno wn) date) unknown) (unknown) (no (unknown) (unknown) (units (unkno wn) date) unknown) (unknown) (no (unknown) (unknown) 12/28 (units (unkno wn) date) unknown) (unknown) (no [...] xray () unknown) (unknown) (no (unknown) (unknown) Adenomyosis/Abdomi (units [...] (units (unkno wn) date) Aminotransferase unknown) (ALT/SGPT) 19 IU/L (<35) 07/09 (unknown) (no (unknown) (unknown) Albumin 4.3 g/dL (units (unknown) date) (3.5-5.0) 08/02/22 unknown) (unknown) (no (unknown) (unknown) Albumin/Globulin (units (unknown) date) Ratio 1.3 (1.0-2.8) unknown) 08/02/22 (unknown) (no (unknown) (unknown) Alkaline (units (unkno wn) date) Phosphatase 38 U/L unknown) (38-126) 08/02/22 (unknown) (no (unknown) (unknown) All systems (units (un known) date) reviewed + are unknown) unremarkable except as noted in HPI and below (unknown) (no (unknown) (unknown) Allergies (units (unkn own) date) unknown) (unknown) (no (unknown) (unknown) [place], [place] (units ( unknown) date) [id number] unknown) (unknown) (no (unknown) (unknown) Anesthesia (units (unk nown) date) unknown) (unknown) (no (unknown) (unknown) Anxiety (units (unkno wn) date) unknown) (unknown) (no (unknown) (unknown) Anxiety: The (units (u nknown) date) patient reports unknown) symptoms are well controlled on current therapy. (unknown) (no (unknown) (unknown) Aspartate Amino (units (unknown) date) Transf (AST/SGOT) unknown) 23 IU/L (14-36) 08/02/ (unknown) (no (unknown) (unknown) Assessment + Plan (units (unknown) date) unknown) (unknown) (no (unknown) (unknown) Assessment and (units (unknown) date) Plan: unknown) (unknown) (no (unknown) (unknown) Asthma (units (unkno wn) date) unknown) (unknown) (no (unknown) (unknown) Attending Dr: (units ( unknown) date) Rafael Mcgee MD unknown) (unknown) (no (unknown) (unknown) BID 01/03/22 (units (u nknown) date) [History Confirmed unknown) 10/08/22] (unknown) (no (unknown) (unknown) BUN/Creatinine (units (unknown) date) Ratio 12.5 (6-22) unknown) 08/02/22 (unknown) (no (unknown) (unknown) Back pain (units (unkn own) date) laterality: unknown) bilateral Sciatica laterality: sciatica of right (unknown) (no (unknown) (unknown) Blood Urea (units (unk nown) date) Nitrogen 10 mg/dL unknown) (7-17) 08/02/22 (unknown) (no (unknown) (unknown) CARDIOVASCULAR: (units (unknown) date) Regular rate and unknown) rhythm without murmurs, gallops, or rubs. (unknown) (no (unknown) (unknown) Calcium Level 8.9 (units (unknown) date) mg/dL (8.4-10.2) unknown) 08/02/22 (unknown) (no (unknown) (unknown) Carbon Dioxide (units (unknown) date) Level 31 mmol/L unknown) (22-32) 08/02/22 (unknown) (no (unknown) (unknown) Care per DEMO SPECIALIST at (units (unknown) date) this point. unknown) (unknown) (no (unknown) (unknown) Care reviewed. (units (unknown) date) unknown) (unknown) (no (unknown) (unknown) Carpal tunnel (units ( unknown) date) syndrome () unknown) (unknown) (no (unknown) (unknown) Cervical cancer (units (unknown) date) () unknown) (unknown) (no (unknown) (unknown) Fvjrxch-Bihyk-Ylul (units (unknown) date) h disease unknown) (unknown) (no (unknown) (unknown) Chief Complaint (units (unknown) date) unknown) (unknown) (no (unknown) (unknown) Chief Complaint: (units (unknown) date) Medical followup unknown) (unknown) (no (unknown) (unknown) Chlamydia () (units (unknown) date) unknown) (unknown) (no (unknown) (unknown) Chloride Level 101 (units (unknown) date) mmol/L (98-107) unknown) 08/02/22 (unknown) (no (unknown) (unknown) Cholesterol Level (units (unknown) date) 161 mg/dL (140-199) unknown) 08/02/22 (unknown) (no (unknown) (unknown) Chronic Low Back [...] pain (unknown) (no (unknown) (unknown) Chronic, (units (o wn) date) continuous use of unknown) opioids (unknown) (no (unknown) (unknown) Clinically stable. (units (unknown) date) Continue current unknown) plan. (unknown) (no (unknown) (unknown) [facility] Lab (units (unk n) date) Results- Last: unknown) (unknown) (no (unknown) (unknown) Const (units (unkno wn) date) unknown) (unknown) (no (unknown) (unknown) Consume fewer (units ( unknown) date) calories (eat less) unknown) and burn more calories (move more) to achieve (unknown) (no (unknown) (unknown) Creatinine 0.80 (units (unknown) date) mg/dL (0.52-1.04) unknown) 08/02/22 (unknown) (no (unknown) (unknown) D25.9 - Leiomyoma (units (unknown) date) of uterus, unknown) unspecified (unknown) (no (unknown) (unknown) DERMATOLOGIC: No (units (unknown) date) rashes or skin unknown) lesions. (unknown) (no (unknown) (unknown) : 1985 (units (unknown) date) Acct:[id number] unknown) (unknown) (no (unknown) (unknown) Depression (units (unk nown) date) unknown) (unknown) (no (unknown) (unknown) Dept at (units (o wn) date) . unknown) (unknown) (no (unknown) (unknown) Details: (units (unkno wn) date) unknown) (unknown) (no (unknown) (unknown) Discuss/review. (units (unknown) date) unknown) (unknown) (no (unknown) (unknown) Diverticular (units (u nknown) date) disease (-2020) unknown) (unknown) (no (unknown) (unknown) Diverticulosis (units (unknown) date) bleeding: unknown) diverticulosis without bleeding Diverticulosis (unknown) (no (unknown) (unknown) Documented By: (units (unknown) date) Rafael Mcgee MD unknown) 10/08/22 0634 (unknown) (no (unknown) (unknown) Draft (units (unkno wn) date) unknown) (unknown) (no (unknown) (unknown) ENT: Mucous (units (un known) date) membranes pink and unknown) moist. (unknown) (no (unknown) (unknown) EXTREMITIES: No (units (unknown) date) clubbing, cyanosis, unknown) or edema. (unknown) (no (unknown) (unknown) EYES: Pupils equal (units (unknown) date) round and reactive. unknown) Extraocular motions intact. No scleral (unknown) (no (unknown) (unknown) Estimat Glomerular (units (unknown) date) Filtration Rate > unknown) 60 mL/min (>60) 08/02 (unknown) (no (unknown) (unknown) Exam Narrative (units (unknown) date) unknown) (unknown) (no (unknown) (unknown) Exam Narrative: (units (unknown) date) unknown) (unknown) (no (unknown) (unknown) Exam (units (unkno wn) date) unknown) (unknown) (no (unknown) (unknown) Family History (units (unknown) date) (Reviewed 10/08/22 unknown) @ 06:34 by Rafael Mcgee MD) (unknown) (no (unknown) (unknown) Father History of (units (unknown) date) heart disease unknown) (unknown) (no (unknown) (unknown) Fibromyalgia (units (u nknown) date) (-2016) unknown) (unknown) (no (unknown) (unknown) [facility]) (unknown) (no (unknown) (unknown) Follow up on (units (u nknown) date) abdominal pain. unknown) (unknown) (no (unknown) (unknown) Follow up on (units (u nknown) date) depression/anxiety. unknown) (unknown) (no (unknown) (unknown) Followup in [...] no apparent (unknown) (no (unknown) (unknown) Globulin 3.2 g/dL (units (unknown) date) (1.7-4.1) 08/02/22 unknown) (unknown) (no (unknown) (unknown) Glucose Level 92 (units (unknown) date) mg/dL (70-100) unknown) 08/02/22 (unknown) (no (unknown) (unknown) Gout (-2016) (units (u nknown) date) unknown) (unknown) (no (unknown) (unknown) H/O LEEP (units (unkno wn) date) unknown) (unknown) (no (unknown) (unknown) H/O laparoscopy (units (unknown) date) (-2009) unknown) (unknown) (no (unknown) (unknown) HDL Cholesterol 38 (units (unknown) date) mg/dL (40-60) L unknown) 08/02/22 (unknown) (no (unknown) (unknown) HPI (units (unkno wn) date) unknown) (unknown) (no (unknown) (unknown) Health Management (units (unknown) date) reviewed with unknown) patient: Yes (unknown) (no (unknown) (unknown) Health Management (units (unknown) date) unknown) (unknown) (no (unknown) (unknown) Hematocrit 39.8 % (units (unknown) date) (36-46) 08/02/22 unknown) (unknown) (no (unknown) (unknown) Hemoglobin 13.3 (units (unknown) date) g/dL (12.0-16.0) unknown) 08/02/22 (unknown) (no (unknown) (unknown) Herpes (-2019) (units [...] (unknown) Intake performed (units (unknown) date) by: Brina Donald unknown) (unknown) (no (unknown) (unknown) Intake (units [...] you unknown) today! (unknown) (no (unknown) (unknown) LDL Cholesterol, (units (unknown) date) Calculated 108 unknown) mg/dL (<100) H 08/02/22 (unknown) (no (unknown) (unknown) Lab Results (units [...] issues with gait. (unknown) (no (unknown) (unknown) Loc: [facility] (units (unkno wn) date) unknown) (unknown) (no (unknown) (unknown) [id number] (units (unk nown) date) unknown) (unknown) (no (unknown) (unknown) MUSCULOSKELETAL: (units (unknown) date) Right knee with unknown) FROM, no swelling, warmth, erythema or (unknown) (no (unknown) (unknown) Major depression:? (units (unknown) date) The patient reports unknown) good compliance with bupropion and (unknown) (no (unknown) (unknown) Mean Corpuscular (units (unknown) date) Hemoglobin 29.0 PG unknown) (26-34) 08/02/22 (unknown) (no (unknown) (unknown) Mean Corpuscular (units (unknown) date) Hemoglobin Concent unknown) 33.4 % (30-36) 07/09 (unknown) (no (unknown) (unknown) Mean Corpuscular (units (unknown) date) Volume 87.0 fL unknown) (80-100) 08/02/22 (unknown) (no (unknown) (unknown) Medical History (units (unknown) date) (Updated 10/08/22 @ unknown) 06:37 by Rafael Mcgee MD) (unknown) (no (unknown) [...] ( unknown) date) Allergies Allergy unknown) (Verified 10/08/22 08:20) (unknown) (no (unknown) (unknown) PFSH (units (unkno wn) date) unknown) (unknown) (no (unknown) (unknown) Patient: (units (unkno wn) date) Kenyetta Cornejo B unknown) MR#: (unknown) (no (unknown) (unknown) Plan (units (unkno wn) date) unknown) (unknown) (no (unknown) (unknown) Platelet Count 176 (units (unknown) date) X103/uL (150-400) unknown) 08/02/22 (unknown) (no (unknown) (unknown) Potassium Level (units (unknown) date) 4.5 mmol/L unknown) (3.4-5.1) 08/02/22 (unknown) (no (unknown) (unknown) Qualifiers: (units (un known) date) unknown) (unknown) (no (unknown) (unknown) RESPIRATORY: Clear (units (unknown) date) to auscultation. unknown) (unknown) (no (unknown) (unknown) ROS (units (unkno wn) date) unknown) (unknown) (no (unknown) (unknown) Reason For Visit (units (unknown) date) unknown) (unknown) (no (unknown) (unknown) Red Blood Count (units (unknown) date) 4.57 X106/uL unknown) (4.0-5.2) 08/02/22 (unknown) (no (unknown) (unknown) Red Cell (units (unkno wn) date) Distribution Width unknown) 12.2 % (11.6-14.8) 08/02/22 (unknown) (no (unknown) (unknown) Right knee pain: (units (unknown) date) The patient reports unknown) right knee pain the past couple of months. (unknown) (no (unknown) (unknown) Rule out metabolic (units (unknown) date) etiology. Evaluate unknown) as outlined below. (unknown) (no (unknown) (unknown) Rule out (units (unkno wn) date) obstructive versus unknown) central sleep apnea. (unknown) (no (unknown) (unknown) Severe obesity (units (unknown) date) (BMI >= 40) unknown) (unknown) (no (unknown) (unknown) She meditates and (units (unknown) date) enjoys plants. unknown) (unknown) (no (unknown) (unknown) She states she had (units (unknown) date) bloodwork and xrays unknown) at the walk-in clinic in [place] and (unknown) (no (unknown) (unknown) Signed By: (units [...] adequately controlled on (unknown) (no (unknown) (unknown) Slow transit (units (u nknown) date) constipation unknown) (unknown) (no (unknown) (unknown) Smoking Status: (units (unknown) date) Former smoker unknown) (unknown) (no (unknown) (unknown) Social History (units (unknown) date) unknown) (unknown) (no (unknown) (unknown) Sodium Level 139 (units (unknown) date) mmol/L (137-145) unknown) 08/02/22 (unknown) (no (unknown) (unknown) Status post right (units (unknown) date) foot surgery unknown) (-2000) (unknown) (no (unknown) (unknown) Status: Acute (units ( unknown) date) unknown) (unknown) (no (unknown) (unknown) Suboxone. She is (units (unknown) date) followed by unknown) [facility] with (unknown) (no (unknown) (unknown) Surgical History (units (unknown) date) (Reviewed 10/08/22 unknown) @ 06:34 by Rafael Mcgee MD) (unknown) (no (unknown) (unknown) This note may have (units (unknown) date) been all or unknown) partially generated using voice recognition (unknown) (no (unknown) (unknown) Thyroid (units (unkno wn) date) Stimulating Hormone unknown) (TSH) 3.35 uIU/mL (0.47-4.68) 0 (unknown) (no (unknown) (unknown) Tobacco + (units (unkn own) date) Substance Use unknown) (unknown) (no (unknown) (unknown) Tobacco Status (units (unknown) date) unknown) (unknown) (no (unknown) (unknown) Total Bilirubin (units (unknown) date) 0.2 mg/dL (0.2-1.3) unknown) 08/02/22 (unknown) (no (unknown) (unknown) Total Protein 7.5 (units (unknown) date) g/dL (6.3-8.2) unknown) 08/02/22 (unknown) (no (unknown) (unknown) Triglycerides (units ( unknown) date) Level 77 mg/dL unknown) (35-150) 08/02/22 (unknown) (no (unknown) (unknown) Unspecified (units (un known) date) abdominal pain unknown) (unknown) (no (unknown) (unknown) Uterine leiomyoma (units (unknown) date) location: unknown) unspecified location Qualified Code(s): (unknown) (no (unknown) (unknown) Visit Reasons: (units (unknown) date) stomach follow up unknown) 03 (unknown) (no (unknown) (unknown) Weight loss (units (un known) date) education provided. unknown) (unknown) (no (unknown) (unknown) White Blood Count (units (unknown) date) 6.2 X103/uL unknown) (4.5-11.0) 08/02/22 (unknown) (no (unknown) (unknown) You are referred [...] (unknown) (unknown) [History Confirmed (units (unknown) date) 10/08/22] unknown) (unknown) (no (unknown) (unknown) adverse side (units (u nknown) date) effects. The pain unknown) medication is allowing for an increased overall (unknown) (no (unknown) (unknown) after difficult (units (unknown) date) labor delivering unknown) her son, treated with various medications which (unknown) (no (unknown) (unknown) alcohol intake: (units (unknown) date) current unknown) (unknown) (no (unknown) (unknown) apnea, unspecified (units (unknown) date) unknown) (unknown) (no (unknown) (unknown) at any time. Her (units (unknown) date) mother told her in unknown) infancy she had trouble breathing. 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 (unknown) (no (unknown) (unknown) household members: (units (unknown) date) family and children unknown) (unknown) (no (unknown) (unknown) icterus. No (units (un known) date) injection or unknown) drainage. (unknown) (no (unknown) (unknown) in sleep, awaken (units (unknown) date) to urinate, jerking unknown) awake), fatigue and requests a referral to (unknown) (no (unknown) (unknown) in the night with (units (unknown) date) turning over in unknown) bed, as well as during the day when walking. (unknown) (no (unknown) (unknown) intestine, part (units (unknown) date) unspecified, unknown) without perforation or abscess without bleeding (unknown) (no (unknown) (unknown) kratom in 2018 [...] PO ONCE unknown) pain #1 tab 07/31/22 [Rx Confirmed 10/08/22] (unknown) (no (unknown) (unknown) read the note [...] the past. She (unknown) (no (unknown) (unknown) sciatica, right (units (unknown) date) side; G89.29 - unknown) Other chronic pain (unknown) (no (unknown) (unknown) she weaned off as (units (unknown) date) they didn't seem unknown) particularly effective. She started using (unknown) (no (unknown) (unknown) side Sciatica (units ( unknown) date) presence: with unknown) sciatica Qualified Code(s): M54.41 - Lumbago with (unknown) (no (unknown) (unknown) sided sciatica. (units (unknown) date) Aggravating factors unknown) include rising from sitting, prolonged (unknown) (no (unknown) (unknown) similar more severe (units (unknown) date) symptoms with unknown) diarrhea at [facility] with a low potassium and CT (unknown) (no (unknown) (unknown) site: unspecified (units (unknown) date) location Qualified unknown) Code(s): K57.90 - Diverticulosis of (unknown) (no (unknown) (unknown) sleep center. She (units (unknown) date) states she is very unknown) tired during the day and could fall asleep (unknown) (no (unknown) (unknown) software. 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 [...] memory, focus, or (unknown) (no (unknown) (unknown) with kneecaps over (units (unknown) date) big toes. Perform unknown) 15-20 repetitions 1-2 times daily. Maintain (unknown) (no (unknown) (unknown) you have any (units (u nknown) date) problems. unknown) (unknown) (no (unknown) (unknown) your weight loss (units (unknown) date) goals. unknown) Result panel 21 (unknown) (no (unknown) (unknown) (no value) (units (unk nown) date) unknown) (unknown) (no (unknown) (unknown) (1) Abdominal (units ( unknown) date) pain: unknown) (unknown) (no (unknown) (unknown) (10) Chronic low (units (unknown) date) back pain: unknown) (unknown) (no (unknown) (unknown) (11) Chronic, (units ( unknown) date) continuous use of unknown) opioids: (unknown) (no (unknown) (unknown) (12) Right knee (units (unknown) date) pain: unknown) (unknown) (no (unknown) (unknown) (13) Severe (units (un known) date) obesity (BMI >= unknown) 40): (unknown) (no (unknown) (unknown) (2) Slow transit (units (unknown) date) constipation: unknown) (unknown) (no (unknown) (unknown) (3) Diverticular (units (unknown) date) disease: unknown) (unknown) (no (unknown) (unknown) (4) Adenomyosis of (units (unknown) date) uterus: unknown) (unknown) (no (unknown) (unknown) (5) Sleep apnea: (units (unknown) date) unknown) (unknown) (no (unknown) (unknown) (6) Other fatigue: (units (unknown) date) unknown) (unknown) (no (unknown) (unknown) (7) Chronic (units (un known) date) insomnia: unknown) (unknown) (no (unknown) (unknown) (8) Fibroids: (units ( unknown) date) unknown) (unknown) (no (unknown) (unknown) (9) Left ovarian (units (unknown) date) cyst: unknown) (unknown) (no (unknown) (unknown) / (units (unkno wn) date) unknown) (unknown) (no (unknown) (unknown) 08/15/22] (units (unkn own) date) unknown) (unknown) (no (unknown) (unknown) 09/21/22 (units (unkno wn) date) unknown) (unknown) (no (unknown) (unknown) 08/02/22 (units (unkno wn) date) unknown) (unknown) (no (unknown) (unknown) (units (unkno wn) date) unknown) (unknown) (no (unknown) (unknown) 12/28 (units (unkno wn) date) unknown) (unknown) (no [...] xray () unknown) (unknown) (no (unknown) (unknown) Adenomyosis/Abdomi (units [...] (units (unkno wn) date) Aminotransferase unknown) (ALT/SGPT) 19 IU/L (<35) 07/09 (unknown) (no (unknown) (unknown) Albumin 4.3 g/dL (units (unknown) date) (3.5-5.0) 08/02/22 unknown) (unknown) (no (unknown) (unknown) Albumin/Globulin (units (unknown) date) Ratio 1.3 (1.0-2.8) unknown) 08/02/22 (unknown) (no (unknown) (unknown) Alkaline (units (unkno wn) date) Phosphatase 38 U/L unknown) (38-126) 08/02/22 (unknown) (no (unknown) (unknown) All systems (units (un known) date) reviewed + are unknown) unremarkable except as noted in HPI and below (unknown) (no (unknown) (unknown) Allergies (units (unkn own) date) unknown) (unknown) (no (unknown) (unknown) [place], [place] (units ( unknown) date) [id number] unknown) (unknown) (no (unknown) (unknown) Anesthesia (units (unk nown) date) unknown) (unknown) (no (unknown) (unknown) Anxiety (units (unkno wn) date) unknown) (unknown) (no (unknown) (unknown) Anxiety: The (units (u nknown) date) patient reports unknown) symptoms are well controlled on current therapy. (unknown) (no (unknown) (unknown) Aspartate Amino (units (unknown) date) Transf (AST/SGOT) unknown) 23 IU/L (14-36) 08/02/ (unknown) (no (unknown) (unknown) Assessment + Plan (units (unknown) date) unknown) (unknown) (no (unknown) (unknown) Assessment and (units (unknown) date) Plan: unknown) (unknown) (no (unknown) (unknown) Asthma (units (unkno wn) date) unknown) (unknown) (no (unknown) (unknown) Attending Dr: (units ( unknown) date) Rafael Mcgee MD unknown) (unknown) (no (unknown) (unknown) BID 01/03/22 (units (u nknown) date) [History Confirmed unknown) 08/30/22] (unknown) (no (unknown) (unknown) BUN/Creatinine (units (unknown) date) Ratio 12.5 (6-22) unknown) 08/02/22 (unknown) (no (unknown) (unknown) Back pain (units (unkn own) date) laterality: unknown) bilateral Sciatica laterality: sciatica of right (unknown) (no (unknown) (unknown) Blood Urea (units (unk nown) date) Nitrogen 10 mg/dL unknown) (7-17) 08/02/22 (unknown) (no (unknown) (unknown) CARDIOVASCULAR: (units (unknown) date) Regular rate and unknown) rhythm without murmurs, gallops, or rubs. (unknown) (no (unknown) (unknown) Calcium Level 8.9 (units (unknown) date) mg/dL (8.4-10.2) unknown) 08/02/22 (unknown) (no (unknown) (unknown) Carbon Dioxide (units (unknown) date) Level 31 mmol/L unknown) (-) 08/02/22 (unknown) (no (unknown) (unknown) Care per DEMO SPECIALIST at (units (unknown) date) this point. unknown) (unknown) (no (unknown) (unknown) Care reviewed. (units (unknown) date) unknown) (unknown) (no (unknown) (unknown) Carpal tunnel (units ( unknown) date) syndrome () unknown) (unknown) (no (unknown) (unknown) Cervical cancer (units (unknown) date) () unknown) (unknown) (no (unknown) (unknown) Igcitnb-Ljszn-Poap (units (unknown) date) h disease unknown) (unknown) (no (unknown) (unknown) Chief Complaint (units (unknown) date) unknown) (unknown) (no (unknown) (unknown) Chief Complaint: (units (unknown) date) Medical followup unknown) (unknown) (no (unknown) (unknown) Chlamydia (-2014) (units (unknown) date) unknown) (unknown) (no (unknown) (unknown) Chloride Level 101 (units (unknown) date) mmol/L (98-107) unknown) 08/02/22 (unknown) (no (unknown) (unknown) Cholesterol Level (units (unknown) date) 161 mg/dL (140-199) unknown) 08/02/22 (unknown) (no (unknown) (unknown) Chronic Low Back (units (unknown) date) Pain: The patient unknown) has a history of chronic back pain since 2004 (unknown) (no (unknown) (unknown) Chronic insomnia (units (unknown) date) unknown) (unknown) (no (unknown) (unknown) Chronic low back (units (unknown) date) pain (-2015) unknown) (unknown) (no (unknown) (unknown) Chronic pain (units (u nknown) date) management: The unknown) patient is seen in follow-up for chronic pain (unknown) (no (unknown) (unknown) Chronic, (units (o wn) date) continuous use of unknown) opioids (unknown) (no (unknown) (unknown) Clinically stable. (units (unknown) date) Continue current unknown) plan. (unknown) (no (unknown) (unknown) Common Lab (units (unk now) date) Results- Last: unknown) (unknown) (no (unknown) (unknown) Const (units (unkno wn) date) unknown) (unknown) (no (unknown) (unknown) Consume fewer (units ( unknown) date) calories (eat less) unknown) and burn more calories (move more) to achieve (unknown) (no (unknown) (unknown) Creatinine 0.80 (units (unknown) date) mg/dL (0.52-1.04) unknown) 08/02/22 (unknown) (no (unknown) (unknown) D25.9 - Leiomyoma (units (unknown) date) of uterus, unknown) unspecified (unknown) (no (unknown) (unknown) DERMATOLOGIC: No (units (unknown) date) rashes or skin unknown) lesions. (unknown) (no (unknown) (unknown) : 1985 (units (unknown) date) Acct:[id number] unknown) (unknown) (no (unknown) (unknown) Depression (units (unk nown) date) unknown) (unknown) (no (unknown) (unknown) Dept at (units (o wn) date) . unknown) (unknown) (no (unknown) (unknown) Details: (units (unkno wn) date) unknown) (unknown) (no (unknown) (unknown) Diverticular (units (u nknown) date) disease () unknown) (unknown) (no (unknown) (unknown) Diverticulosis (units (unknown) date) bleeding: unknown) diverticulosis without bleeding Diverticulosis (unknown) (no (unknown) (unknown) Documented By: (units (unknown) date) Rafael Mcgee MD unknown) 10/08/22 0634 (unknown) (no (unknown) (unknown) Draft (units (unkno wn) date) unknown) (unknown) (no (unknown) (unknown) ENT: Mucous (units (un known) date) membranes pink and unknown) moist. (unknown) (no (unknown) (unknown) EXTREMITIES: No (units (unknown) date) clubbing, cyanosis, unknown) or edema. (unknown) (no (unknown) (unknown) EYES: Pupils equal (units (unknown) date) round and reactive. unknown) Extraocular motions intact. No scleral (unknown) (no (unknown) (unknown) Estimat Glomerular (units (unknown) date) Filtration Rate > unknown) 60 mL/min (>60) 08/02 (unknown) (no (unknown) (unknown) Exam Narrative (units (unknown) date) unknown) (unknown) (no (unknown) (unknown) Exam Narrative: (units (unknown) date) unknown) (unknown) (no (unknown) (unknown) Exam (units (unkno wn) date) unknown) (unknown) (no (unknown) (unknown) Family History (units (unknown) date) (Reviewed 10/08/22 unknown) @ 06:34 by Rafael Mcgee MD) (unknown) (no (unknown) [...] no apparent (unknown) (no (unknown) (unknown) Globulin 3.2 g/dL (units (unknown) date) (1.7-4.1) 08/02/22 unknown) (unknown) (no (unknown) (unknown) Glucose Level 92 (units (unknown) date) mg/dL (70-100) unknown) 08/02/22 (unknown) (no (unknown) (unknown) Gout (-2016) (units (u nknown) date) unknown) (unknown) (no (unknown) (unknown) H/O LEEP (units (unkno wn) date) unknown) (unknown) (no (unknown) (unknown) H/O laparoscopy (units (unknown) date) (-2009) unknown) (unknown) (no (unknown) (unknown) HDL Cholesterol 38 (units (unknown) date) mg/dL (40-60) L unknown) 08/02/22 (unknown) (no (unknown) (unknown) HPI (units (unkno wn) date) unknown) (unknown) (no (unknown) (unknown) Hematocrit 39.8 % (units (unknown) date) (36-46) 08/02/22 unknown) (unknown) (no (unknown) (unknown) Hemoglobin 13.3 (units (unknown) date) g/dL (12.0-16.0) unknown) 08/02/22 (unknown) (no (unknown) (unknown) Herpes (-2018) (units (unknown) date) unknown) (unknown) (no (unknown) (unknown) History of (units (unk nown) date) unknown) (-08/08/04) (unknown) (no (unknown) (unknown) Human papilloma (units (unknown) date) virus (-2002) unknown) (unknown) (no (unknown) (unknown) Hyperlipidemia (units (unknown) date) unknown) (unknown) (no (unknown) (unknown) Hypertension (units (u nknown) date) unknown) (unknown) (no (unknown) (unknown) Intake (units (unkno wn) date) unknown) (unknown) (no (unknown) (unknown) Internal Medicine (units (unknown) date) Office Visit unknown) (unknown) (no (unknown) (unknown) Irritable bowel (units (unknown) date) syndrome (-2008) unknown) (unknown) (no (unknown) (unknown) It was very nice (units (unknown) date) to meet with you unknown) today! (unknown) (no (unknown) (unknown) LDL Cholesterol, (units (unknown) date) Calculated 108 unknown) mg/dL (<100) H 08/02/22 (unknown) (no (unknown) (unknown) Lab Results (units [...] issues with gait. (unknown) (no (unknown) (unknown) Loc: [facility] (units (unkno wn) date) unknown) (unknown) (no (unknown) (unknown) [id number] (units (unk nown) date) unknown) (unknown) (no (unknown) (unknown) MUSCULOSKELETAL: (units (unknown) date) Right knee with unknown) FROM, no swelling, warmth, erythema or (unknown) (no (unknown) (unknown) Major depression:? (units (unknown) date) The patient reports unknown) good compliance with bupropion and (unknown) (no (unknown) (unknown) Mean Corpuscular (units (unknown) date) Hemoglobin 29.0 PG unknown) (26-34) 08/02/22 (unknown) (no (unknown) (unknown) Mean Corpuscular (units (unknown) date) Hemoglobin Concent unknown) 33.4 % (30-36) 07/09 (unknown) (no (unknown) (unknown) Mean Corpuscular (units (unknown) date) Volume 87.0 fL unknown) (80-100) 08/02/22 (unknown) (no (unknown) (unknown) Medical History (units (unknown) date) (Updated 10/08/22 @ unknown) 06:37 by Rafael Mcgee MD) (unknown) (no (unknown) [...] ( unknown) date) Allergies Allergy unknown) (Verified 10/08/22 08:20) (unknown) (no (unknown) (unknown) PFSH (units (unkno wn) date) unknown) (unknown) (no (unknown) (unknown) Patient: (units (unkno wn) date) Kenyetta Cornejo B unknown) MR#: (unknown) (no (unknown) (unknown) Plan (units (unkno wn) date) unknown) (unknown) (no (unknown) (unknown) Platelet Count 176 (units (unknown) date) X103/uL (150-400) unknown) 08/02/22 (unknown) (no (unknown) (unknown) Potassium Level (units (unknown) date) 4.5 mmol/L unknown) (3.4-5.1) 08/02/22 (unknown) (no (unknown) (unknown) Qualifiers: (units (un known) date) unknown) (unknown) (no (unknown) (unknown) RESPIRATORY: Clear (units (unknown) date) to auscultation. unknown) (unknown) (no (unknown) (unknown) ROS (units (unkno wn) date) unknown) (unknown) (no (unknown) (unknown) Reason For Visit (units (unknown) date) unknown) (unknown) (no (unknown) (unknown) Red Blood Count (units (unknown) date) 4.57 X106/uL unknown) (4.0-5.2) 08/02/22 (unknown) (no (unknown) (unknown) Red Cell (units (unkno wn) date) Distribution Width unknown) 12.2 % (11.6-14.8) 08/02/22 (unknown) (no (unknown) (unknown) Right knee pain: (units (unknown) date) The patient reports unknown) right knee pain the past couple of months. (unknown) (no (unknown) (unknown) Rule out metabolic (units (unknown) date) etiology. Evaluate unknown) as outlined below. (unknown) (no (unknown) (unknown) Rule out (units (unkno wn) date) obstructive versus unknown) central sleep apnea. (unknown) (no (unknown) (unknown) Severe obesity (units (unknown) date) (BMI >= 40) unknown) (unknown) (no (unknown) (unknown) She meditates and (units (unknown) date) enjoys plants. unknown) (unknown) (no (unknown) (unknown) She states she had (units (unknown) date) bloodwork and xrays unknown) at the walk-in clinic in [place] and (unknown) (no (unknown) (unknown) Signed By: (units [...] adequately controlled on (unknown) (no (unknown) (unknown) Slow transit (units (u nknown) date) constipation unknown) (unknown) (no (unknown) (unknown) Smoking Status: (units (unknown) date) Former smoker unknown) (unknown) (no (unknown) (unknown) Social History (units (unknown) date) unknown) (unknown) (no (unknown) (unknown) Sodium Level 139 (units (unknown) date) mmol/L (137-145) unknown) 08/02/22 (unknown) (no (unknown) (unknown) Status post right (units (unknown) date) foot surgery unknown) (-2000) (unknown) (no (unknown) (unknown) Status: Acute (units ( unknown) date) unknown) (unknown) (no (unknown) (unknown) Suboxone. She is (units (unknown) date) followed by unknown) [facility] with (unknown) (no (unknown) (unknown) Surgical History (units (unknown) date) (Reviewed 10/08/22 unknown) @ 06:34 by Rafael Mcgee MD) (unknown) (no (unknown) (unknown) This note may have (units (unknown) date) been all or unknown) partially generated using voice recognition (unknown) (no (unknown) (unknown) Thyroid (units (unkno wn) date) Stimulating Hormone unknown) (TSH) 3.35 uIU/mL (0.47-4.68) 0 (unknown) (no (unknown) (unknown) Tobacco + (units (unkn own) date) Substance Use unknown) (unknown) (no (unknown) (unknown) Tobacco Status (units (unknown) date) unknown) (unknown) (no (unknown) (unknown) Total Bilirubin (units (unknown) date) 0.2 mg/dL (0.2-1.3) unknown) 08/02/22 (unknown) (no (unknown) (unknown) Total Protein 7.5 (units (unknown) date) g/dL (6.3-8.2) unknown) 08/02/22 (unknown) (no (unknown) (unknown) Triglycerides (units ( unknown) date) Level 77 mg/dL unknown) (35-150) 08/02/22 (unknown) (no (unknown) (unknown) Unspecified (units (un known) date) abdominal pain unknown) (unknown) (no (unknown) (unknown) Uterine leiomyoma (units (unknown) date) location: unknown) unspecified location Qualified Code(s): (unknown) (no (unknown) (unknown) Visit Reasons: (units (unknown) date) stomach follow up unknown) 03 (unknown) (no (unknown) (unknown) Weight loss (units (un known) date) education provided. unknown) (unknown) (no (unknown) (unknown) White Blood Count (units (unknown) date) 6.2 X103/uL unknown) (4.5-11.0) 08/02/22 (unknown) (no (unknown) (unknown) You are referred [...] (unknown) (unknown) [History Confirmed (units (unknown) date) 08/15/22] unknown) (unknown) (no (unknown) (unknown) [History Confirmed (units (unknown) date) 08/30/22] unknown) (unknown) (no (unknown) (unknown) adverse side (units (u nknown) date) effects. The pain unknown) medication is allowing for an increased overall (unknown) (no (unknown) (unknown) after difficult (units (unknown) date) labor delivering unknown) her son, treated with various medications which (unknown) (no (unknown) (unknown) alcohol intake: (units (unknown) date) current unknown) (unknown) (no (unknown) (unknown) apnea, unspecified (units (unknown) date) unknown) (unknown) (no (unknown) (unknown) at any time. Her (units (unknown) date) mother told her in unknown) infancy she had trouble breathing. 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 (unknown) (no (unknown) (unknown) household members: (units (unknown) date) family and children unknown) (unknown) (no (unknown) (unknown) icterus. No (units (un known) date) injection or unknown) drainage. (unknown) (no (unknown) (unknown) in sleep, awaken (units (unknown) date) to urinate, jerking unknown) awake), fatigue and requests a referral to (unknown) (no (unknown) (unknown) in the night with (units (unknown) date) turning over in unknown) bed, as well as during the day when walking. (unknown) (no (unknown) (unknown) intestine, part (units (unknown) date) unspecified, unknown) without perforation or abscess without bleeding (unknown) (no (unknown) (unknown) kratom in 2018 [...] PO ONCE unknown) pain #1 tab 07/31/22 [Rx Confirmed 08/15/22] (unknown) (no (unknown) (unknown) read the note [...] the past. She (unknown) (no (unknown) (unknown) sciatica, right (units (unknown) date) side; G89.29 - unknown) Other chronic pain (unknown) (no (unknown) (unknown) she weaned off as (units (unknown) date) they didn't seem unknown) particularly effective. She started using (unknown) (no (unknown) (unknown) side Sciatica (units ( unknown) date) presence: with unknown) sciatica Qualified Code(s): M54.41 - Lumbago with (unknown) (no (unknown) (unknown) sided sciatica. (units (unknown) date) Aggravating factors unknown) include rising from sitting, prolonged (unknown) (no (unknown) (unknown) similar more severe (units (unknown) date) symptoms with unknown) diarrhea at [facility] with a low potassium and CT (unknown) (no (unknown) (unknown) site: unspecified (units (unknown) date) location Qualified unknown) Code(s): K57.90 - Diverticulosis of (unknown) (no (unknown) (unknown) sleep center. She (units (unknown) date) states she is very unknown) tired during the day and could fall asleep (unknown) (no (unknown) (unknown) software. 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 [...] memory, focus, or (unknown) (no (unknown) (unknown) with kneecaps over (units (unknown) date) big toes. Perform unknown) 15-20 repetitions 1-2 times daily. Maintain (unknown) (no (unknown) (unknown) you have any (units (u nknown) date) problems. unknown) (unknown) (no (unknown) (unknown) your weight loss (units (unknown) date) goals. unknown) Result panel 22 (unknown) (no (unknown) (unknown) (no value) (units (unk nown) date) unknown) (unknown) (no (unknown) (unknown) (1) Abdominal (units ( unknown) date) pain: unknown) (unknown) (no (unknown) (unknown) (10) Chronic low (units (unknown) date) back pain: unknown) (unknown) (no (unknown) (unknown) (11) Chronic, (units ( unknown) date) continuous use of unknown) opioids: (unknown) (no (unknown) (unknown) (12) Right knee (units (unknown) date) pain: unknown) (unknown) (no (unknown) (unknown) (13) Severe (units (un known) date) obesity (BMI >= unknown) 40): (unknown) (no (unknown) (unknown) (2) Slow transit (units (unknown) date) constipation: unknown) (unknown) (no (unknown) (unknown) (3) Diverticular (units (unknown) date) disease: unknown) (unknown) (no (unknown) (unknown) (4) Adenomyosis of (units (unknown) date) uterus: unknown) (unknown) (no (unknown) (unknown) (5) Sleep apnea: (units (unknown) date) unknown) (unknown) (no (unknown) (unknown) (6) Other fatigue: (units (unknown) date) unknown) (unknown) (no (unknown) (unknown) (7) Chronic (units (un known) date) insomnia: unknown) (unknown) (no (unknown) (unknown) (8) Fibroids: (units ( unknown) date) unknown) (unknown) (no (unknown) (unknown) (9) Left ovarian (units (unknown) date) cyst: unknown) (unknown) (no (unknown) (unknown) / (units (unkno wn) date) unknown) (unknown) (no (unknown) (unknown) 08/15/22] (units (unkn own) date) unknown) (unknown) (no (unknown) (unknown) 09/21/22 (units (unkno wn) date) unknown) (unknown) (no (unknown) (unknown) 08/02/22 (units (unkno wn) date) unknown) (unknown) (no (unknown) (unknown) (units (unkno wn) date) unknown) (unknown) (no (unknown) (unknown) 12/28 (units (unkno wn) date) unknown) (unknown) (no [...] xray () unknown) (unknown) (no (unknown) (unknown) Adenomyosis/Abdomi (units [...] (units (unkno wn) date) Aminotransferase unknown) (ALT/SGPT) 19 IU/L (<35) 07/09 (unknown) (no (unknown) (unknown) Albumin 4.3 g/dL (units (unknown) date) (3.5-5.0) 08/02/22 unknown) (unknown) (no (unknown) (unknown) Albumin/Globulin (units (unknown) date) Ratio 1.3 (1.0-2.8) unknown) 08/02/22 (unknown) (no (unknown) (unknown) Alkaline (units (unkno wn) date) Phosphatase 38 U/L unknown) (38-126) 08/02/22 (unknown) (no (unknown) (unknown) All systems (units (un known) date) reviewed + are unknown) unremarkable except as noted in HPI and below (unknown) (no (unknown) (unknown) Allergies (units (unkn own) date) unknown) (unknown) (no (unknown) (unknown) [place], [place] (units ( unknown) date) [id number] unknown) (unknown) (no (unknown) (unknown) Anesthesia (units (unk nown) date) unknown) (unknown) (no (unknown) (unknown) Anxiety (units (unkno wn) date) unknown) (unknown) (no (unknown) (unknown) Anxiety: The (units (u nknown) date) patient reports unknown) symptoms are well controlled on current therapy. (unknown) (no (unknown) (unknown) Aspartate Amino (units (unknown) date) Transf (AST/SGOT) unknown) 23 IU/L (14-36) 08/02/ (unknown) (no (unknown) (unknown) Assessment + Plan (units (unknown) date) unknown) (unknown) (no (unknown) (unknown) Assessment and (units (unknown) date) Plan: unknown) (unknown) (no (unknown) (unknown) Asthma (units (unkno wn) date) unknown) (unknown) (no (unknown) (unknown) Attending Dr: (units ( unknown) date) Rafael Mcgee MD unknown) (unknown) (no (unknown) (unknown) BID 01/03/22 (units (u nknown) date) [History Confirmed unknown) 08/30/22] (unknown) (no (unknown) (unknown) BUN/Creatinine (units (unknown) date) Ratio 12.5 (6-22) unknown) 08/02/22 (unknown) (no (unknown) (unknown) Back pain (units (unkn own) date) laterality: unknown) bilateral Sciatica laterality: sciatica of right (unknown) (no (unknown) (unknown) Blood Urea (units (unk nown) date) Nitrogen 10 mg/dL unknown) (7-17) 08/02/22 (unknown) (no (unknown) (unknown) CARDIOVASCULAR: (units (unknown) date) Regular rate and unknown) rhythm without murmurs, gallops, or rubs. (unknown) (no (unknown) (unknown) Calcium Level 8.9 (units (unknown) date) mg/dL (8.4-10.2) unknown) 08/02/22 (unknown) (no (unknown) (unknown) Cancelled (units (unkn own) date) unknown) (unknown) (no (unknown) (unknown) Carbon Dioxide (units (unknown) date) Level 31 mmol/L unknown) (22-32) 08/02/22 (unknown) (no (unknown) (unknown) Care per DEMO SPECIALIST at (units (unknown) date) this point. unknown) (unknown) (no (unknown) (unknown) Care reviewed. (units (unknown) date) unknown) (unknown) (no (unknown) (unknown) Carpal tunnel (units ( unknown) date) syndrome () unknown) (unknown) (no (unknown) (unknown) Cervical cancer (units (unknown) date) () unknown) (unknown) (no (unknown) (unknown) Bnjnukz-Mwvkg-Acoo (units (unknown) date) h disease unknown) (unknown) (no (unknown) (unknown) Chief Complaint (units (unknown) date) unknown) (unknown) (no (unknown) (unknown) Chief Complaint: (units (unknown) date) Medical followup unknown) (unknown) (no (unknown) (unknown) Chlamydia () (units (unknown) date) unknown) (unknown) (no (unknown) (unknown) Chloride Level 101 (units (unknown) date) mmol/L (98-107) unknown) 08/02/22 (unknown) (no (unknown) (unknown) Cholesterol Level (units (unknown) date) 161 mg/dL (140-199) unknown) 08/02/22 (unknown) (no (unknown) (unknown) Chronic Low Back [...] of unknown) opioids (unknown) (no (unknown) (unknown) Clinically stable. (units (unknown) date) Continue current unknown) plan. (unknown) (no (unknown) (unknown) Common Lab (units (unk nown) date) Results- Last: unknown) (unknown) (no (unknown) (unknown) Const (units (unkno wn) date) unknown) (unknown) (no (unknown) (unknown) Consume fewer (units ( unknown) date) calories (eat less) unknown) and burn more calories (move more) to achieve (unknown) (no (unknown) (unknown) Creatinine 0.80 (units (unknown) date) mg/dL (0.52-1.04) unknown) 08/02/22 (unknown) (no (unknown) (unknown) D25.9 - Leiomyoma (units (unknown) date) of uterus, unknown) unspecified (unknown) (no (unknown) (unknown) DERMATOLOGIC: No (units (unknown) date) rashes or skin unknown) lesions. (unknown) (no (unknown) (unknown) : 1985 (units (unknown) date) Acct:[id number] unknown) (unknown) (no (unknown) (unknown) Depression (units (unk nown) date) unknown) (unknown) (no (unknown) (unknown) Dept at (units (unkno wn) date) . unknown) (unknown) (no (unknown) (unknown) Details: (units (unkno wn) date) unknown) (unknown) (no (unknown) (unknown) Diverticular (units (u nknown) date) disease (-2020) unknown) (unknown) (no (unknown) (unknown) Diverticulosis (units (unknown) date) bleeding: unknown) diverticulosis without bleeding Diverticulosis (unknown) (no (unknown) (unknown) Documented By: (units (unknown) date) Rafael Mcgee MD unknown) 10/08/22 0634 (unknown) (no (unknown) (unknown) ENT: Mucous (units (un known) date) membranes pink and unknown) moist. (unknown) (no (unknown) (unknown) EXTREMITIES: No (units (unknown) date) clubbing, cyanosis, unknown) or edema. (unknown) (no (unknown) (unknown) EYES: Pupils equal (units (unknown) date) round and reactive. unknown) Extraocular motions intact. No scleral (unknown) (no (unknown) (unknown) Estimat Glomerular (units (unknown) date) Filtration Rate > unknown) 60 mL/min (>60) 08/02 (unknown) (no (unknown) (unknown) Exam Narrative (units (unknown) date) unknown) (unknown) (no (unknown) (unknown) Exam Narrative: (units (unknown) date) unknown) (unknown) (no (unknown) (unknown) Exam (units (unkno wn) date) unknown) (unknown) (no (unknown) (unknown) Family History (units (unknown) date) (Reviewed 10/08/22 unknown) @ 06:34 by Rafael Mcgee MD) (unknown) (no (unknown) [...] no apparent (unknown) (no (unknown) (unknown) Globulin 3.2 g/dL (units (unknown) date) (1.7-4.1) 08/02/22 unknown) (unknown) (no (unknown) (unknown) Glucose Level 92 (units (unknown) date) mg/dL (70-100) unknown) 08/02/22 (unknown) (no (unknown) (unknown) Gout (-2017) (units (u nknown) date) unknown) (unknown) (no (unknown) (unknown) H/O LEEP (units (unkno wn) date) unknown) (unknown) (no (unknown) (unknown) H/O laparoscopy (units (unknown) date) (-2009) unknown) (unknown) (no (unknown) (unknown) HDL Cholesterol 38 (units (unknown) date) mg/dL (40-60) L unknown) 08/02/22 (unknown) (no (unknown) (unknown) HPI (units (unkno wn) date) unknown) (unknown) (no (unknown) (unknown) Hematocrit 39.8 % (units (unknown) date) (36-46) 08/02/22 unknown) (unknown) (no (unknown) (unknown) Hemoglobin 13.3 (units (unknown) date) g/dL (12.0-16.0) unknown) 08/02/22 (unknown) (no (unknown) (unknown) Herpes (-2018) (units (unknown) date) unknown) (unknown) (no (unknown) (unknown) History of (units (unk nown) date) unknown) (-08/08/04) (unknown) (no (unknown) (unknown) Human papilloma (units (unknown) date) virus (-2002) unknown) (unknown) (no (unknown) (unknown) Hyperlipidemia (units (unknown) date) unknown) (unknown) (no (unknown) (unknown) Hypertension (units (u nknown) date) unknown) (unknown) (no (unknown) (unknown) Intake (units (unkno wn) date) unknown) (unknown) (no (unknown) (unknown) Internal Medicine (units (unknown) date) Office Visit unknown) (unknown) (no (unknown) (unknown) Irritable bowel (units (unknown) date) syndrome (-2008) unknown) (unknown) (no (unknown) (unknown) It was very nice (units (unknown) date) to meet with you unknown) today! (unknown) (no (unknown) (unknown) LDL Cholesterol, (units (unknown) date) Calculated 108 unknown) mg/dL (<100) H 08/02/22 (unknown) (no (unknown) (unknown) Lab Results (units (un known) date) unknown) (unknown) (no (unknown) (unknown) Labwork is ordered (units (unknown) date) today to evaluate unknown) your condition. Results will be posted to (unknown) (no (unknown) (unknown) Left ovarian cyst (units (unknown) date) (-2021) unknown) (unknown) (no (unknown) (unknown) Likely (units (unkno wn) date) biomechanical with unknown) chronic strain due to mal-alignment issues with gait. (unknown) (no (unknown) (unknown) Loc: [facility] (units (unkno wn) date) unknown) (unknown) (no (unknown) (unknown) [id number] (units (unk nown) date) unknown) (unknown) (no (unknown) (unknown) MUSCULOSKELETAL: (units (unknown) date) Right knee with unknown) FROM, no swelling, warmth, erythema or (unknown) (no (unknown) (unknown) Major depression:? (units (unknown) date) The patient reports unknown) good compliance with bupropion and (unknown) (no (unknown) (unknown) Mean Corpuscular (units (unknown) date) Hemoglobin 29.0 PG unknown) (26-34) 08/02/22 (unknown) (no (unknown) (unknown) Mean Corpuscular (units (unknown) date) Hemoglobin Concent unknown) 33.4 % (30-36) 07/09 (unknown) (no (unknown) (unknown) Mean Corpuscular (units (unknown) date) Volume 87.0 fL unknown) (80-100) 08/02/22 (unknown) (no (unknown) (unknown) Medical History (units (unknown) date) (Updated 10/08/22 @ unknown) 06:37 by Rafael Mcgee MD) (unknown) (no (unknown) [...] ( unknown) date) Allergies Allergy unknown) (Verified 10/08/22 08:20) (unknown) (no (unknown) (unknown) PFSH (units (unkno wn) date) unknown) (unknown) (no (unknown) (unknown) Patient: (units (unkno wn) date) Kenyetta Cornejo B unknown) MR#: (unknown) (no (unknown) (unknown) Plan (units (unkno wn) date) unknown) (unknown) (no (unknown) (unknown) Platelet Count 176 (units (unknown) date) X103/uL (150-400) unknown) 08/02/22 (unknown) (no (unknown) (unknown) Potassium Level (units (unknown) date) 4.5 mmol/L unknown) (3.4-5.1) 08/02/22 (unknown) (no (unknown) (unknown) Qualifiers: (units (un known) date) unknown) (unknown) (no (unknown) (unknown) RESPIRATORY: Clear (units (unknown) date) to auscultation. unknown) (unknown) (no (unknown) (unknown) ROS (units (unkno wn) date) unknown) (unknown) (no (unknown) (unknown) Reason For Visit (units (unknown) date) unknown) (unknown) (no (unknown) (unknown) Red Blood Count (units (unknown) date) 4.57 X106/uL unknown) (4.0-5.2) 08/02/22 (unknown) (no (unknown) (unknown) Red Cell (units (unkno wn) date) Distribution Width unknown) 12.2 % (11.6-14.8) 08/02/22 (unknown) (no (unknown) (unknown) Right knee pain: (units (unknown) date) The patient reports unknown) right knee pain the past couple of months. (unknown) (no (unknown) (unknown) Rule out metabolic (units (unknown) date) etiology. Evaluate unknown) as outlined below. (unknown) (no (unknown) (unknown) Rule out (units (unkno wn) date) obstructive versus unknown) central sleep apnea. (unknown) (no (unknown) (unknown) Severe obesity (units (unknown) date) (BMI >= 40) unknown) (unknown) (no (unknown) (unknown) She meditates and (units (unknown) date) enjoys plants. unknown) (unknown) (no (unknown) (unknown) She states she had (units (unknown) date) bloodwork and xrays unknown) at the walk-in clinic in [place] and (unknown) (no (unknown) (unknown) Signed By: (units [...] adequately controlled on (unknown) (no (unknown) (unknown) Slow transit (units (u nknown) date) constipation unknown) (unknown) (no (unknown) (unknown) Smoking Status: (units (unknown) date) Former smoker unknown) (unknown) (no (unknown) (unknown) Social History (units (unknown) date) unknown) (unknown) (no (unknown) (unknown) Sodium Level 139 (units (unknown) date) mmol/L (137-145) unknown) 08/02/22 (unknown) (no (unknown) (unknown) Status post right (units (unknown) date) foot surgery unknown) () (unknown) (no (unknown) (unknown) Status: Acute (units ( unknown) date) unknown) (unknown) (no (unknown) (unknown) Suboxone. She is (units (unknown) date) followed by Dr. martin Caruso at the [facility] with (unknown) (no (unknown) (unknown) Surgical History (units (unknown) date) (Reviewed 10/08/22 unknown) @ 06:34 by Rafael Mcgee MD) (unknown) (no (unknown) (unknown) This note may have (units (unknown) date) been all or unknown) partially generated using voice recognition (unknown) (no (unknown) (unknown) Thyroid (units (unkno wn) date) Stimulating Hormone unknown) (TSH) 3.35 uIU/mL (0.47-4.68) 0 (unknown) (no (unknown) (unknown) Tobacco + (units (unkn own) date) Substance Use unknown) (unknown) (no (unknown) (unknown) Tobacco Status (units (unknown) date) unknown) (unknown) (no (unknown) (unknown) Total Bilirubin (units (unknown) date) 0.2 mg/dL (0.2-1.3) unknown) 08/02/22 (unknown) (no (unknown) (unknown) Total Protein 7.5 (units (unknown) date) g/dL (6.3-8.2) unknown) 08/02/22 (unknown) (no (unknown) (unknown) Triglycerides (units ( unknown) date) Level 77 mg/dL unknown) (35-150) 08/02/22 (unknown) (no (unknown) (unknown) Unspecified (units (un known) date) abdominal pain unknown) (unknown) (no (unknown) (unknown) Uterine leiomyoma (units (unknown) date) location: unknown) unspecified location Qualified Code(s): (unknown) (no (unknown) (unknown) Visit Reasons: (units (unknown) date) stomach follow up unknown) 03 (unknown) (no (unknown) (unknown) Weight loss (units (un known) date) education provided. unknown) (unknown) (no (unknown) (unknown) White Blood Count (units (unknown) date) 6.2 X103/uL unknown) (4.5-11.0) 08/02/22 (unknown) (no (unknown) (unknown) You are referred [...] (unknown) (unknown) [History Confirmed (units (unknown) date) 08/15/22] unknown) (unknown) (no (unknown) (unknown) [History Confirmed (units (unknown) date) 08/30/22] unknown) (unknown) (no (unknown) (unknown) adverse side (units (u nknown) date) effects. The pain unknown) medication is allowing for an increased overall (unknown) (no (unknown) (unknown) after difficult (units (unknown) date) labor delivering unknown) her son, treated with various medications which (unknown) (no (unknown) (unknown) alcohol intake: (units (unknown) date) current unknown) (unknown) (no (unknown) (unknown) apnea, unspecified (units (unknown) date) unknown) (unknown) (no (unknown) (unknown) at any time. Her (units (unknown) date) mother told her in unknown) infancy she had trouble breathing. 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 (unknown) (no (unknown) (unknown) household members: (units (unknown) date) family and children unknown) (unknown) (no (unknown) (unknown) icterus. No (units (un known) date) injection or unknown) drainage. (unknown) (no (unknown) (unknown) in sleep, awaken (units (unknown) date) to urinate, jerking unknown) awake), fatigue and requests a referral to (unknown) (no (unknown) (unknown) in the night with (units (unknown) date) turning over in unknown) bed, as well as during the day when walking. (unknown) (no (unknown) (unknown) intestine, part (units (unknown) date) unspecified, unknown) without perforation or abscess without bleeding (unknown) (no (unknown) (unknown) kratom in 2018 [...] PO ONCE unknown) pain #1 tab 07/31/22 [Rx Confirmed 08/15/22] (unknown) (no (unknown) (unknown) read the note [...] the past. She (unknown) (no (unknown) (unknown) sciatica, right (units (unknown) date) side; G89.29 - unknown) Other chronic pain (unknown) (no (unknown) (unknown) she weaned off as (units (unknown) date) they didn't seem unknown) particularly effective. She started using (unknown) (no (unknown) (unknown) side Sciatica (units ( unknown) date) presence: with unknown) sciatica Qualified Code(s): M54.41 - Lumbago with (unknown) (no (unknown) (unknown) sided sciatica. (units (unknown) date) Aggravating factors unknown) include rising from sitting, prolonged (unknown) (no (unknown) (unknown) similar more severe (units (unknown) date) symptoms with unknown) diarrhea at [facility] with a low potassium and CT (unknown) (no (unknown) (unknown) site: unspecified (units (unknown) date) location Qualified unknown) Code(s): K57.90 - Diverticulosis of (unknown) (no (unknown) (unknown) sleep center. She (units (unknown) date) states she is very unknown) tired during the day and could fall asleep (unknown) (no (unknown) (unknown) software. 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 [...] memory, focus, or (unknown) (no (unknown) (unknown) with kneecaps over (units (unknown) date) big toes. Perform unknown) 15-20 repetitions 1-2 times daily. Maintain (unknown) (no (unknown) (unknown) you have any (units (u nknown) date) problems. unknown) (unknown) (no (unknown) (unknown) your weight loss (units (unknown) date) goals. unknown) Social History date description facility 2022-08-15 00:00 Ex-smoker (finding) [facility] 2022-08-30 00:00 Ex-smoker (finding) [facility] 2022-09-19 00:00 Ex-smoker (finding) [facility] Vital Signs date measurement value units 2022-08-15 00:00 BMI 46.1 kg/m2 2022-08-15 00:00 [...]
[2022-11-05 17:45] LABS: ALBUMIN 4.2 g/dL (3.2-5.5); ALBUMIN/GLOBULIN RATIO 1.4 (1.0-2.2); BILIRUBIN,TOTAL 0.6 mg/dL (0.2-1.0); CALCIUM 9.1 mg/dL (8.5-10.3); CREATININE 0.9 mg/dL (0.4-1.0); POTASSIUM 3.9 mmol/L (3.5-5.0); TOTAL PROTEIN 7.3 g/dL (6.7-8.2)
[2022-11-05 17:48] LABS: CLARITY,URINE CLEAR (CLEAR); HCG UR QUAL NEGATIVE
--- NOTE | 2022-11-05 18:14 | ED Physician Documentation ---
PD HPI ABD PAIN - Stated complaint Stated Complaint: ABD PX, BACK PX, SOA, DIZZY - Chief complaint Chief Complaint: Abd Pain - History obtained from History obtained from: Patient - History of Present Illness Associated symptoms: Nausea, Vomiting, Diarrhea. No: Hematemesis, Constipation, Melena, Hematochezia - Additional information Additional information: Patient is a 36-year-old female who presents to the emergency department complaining of low pelvic pain. She states that this started today. She states occasionally she has felt pain in her left upper quadrant as well. She states that she felt lightheaded and dizzy today at work. Over the weekend she had several episodes of nausea vomiting and diarrhea, no hematemesis. No melena or hematochezia. She has not had any nausea or vomiting today. She states that she was recently changed to an IUD for control. She states she is not having any vaginal bleeding or discharge. The IUD was placed about a month ago. Review of Systems Constitutional: denies: Fever, Chills Respiratory: denies: Dyspnea, Cough Skin: denies: Rash Musculoskeletal: denies: Neck pain, Back pain Neurologic: denies: Headache PD PAST MEDICAL HISTORY - Past Medical History Cardiovascular: None Respiratory: None Endocrine/Autoimmune: None Psych: Depression, Anxiety Musculoskeletal: Fibromyalgia, Chronic back pain - Past Surgical History Past Surgical History: Yes Ortho: Arthroscopic surgery /[employer]: section - Present Medications Home Medications: Ambulatory Orders Medication Instructions Recorded Confirmed DULoxetine [Cymbalta] See Rx Instructions .ROUTE .COMPLEX 09/28/22 09/28/22 buPROPion HCL [Wellbutrin Xl] See Rx Instructions .ROUTE .COMPLEX 09/28/22 09/28/22 Baclofen 5 mg PO Q8H PRN #10 tablet 11/05/22 Oxycodone HCl/Acetaminophen 1 - 2 each PO Q6H PRN #10 tablet 11/05/22 [Percocet 5-325 mg Tablet] MDD 6 tabs - Allergies Allergies/Adverse Reactions: Allergies Allergy/AdvReac Type Severity Reaction Status Date / Time codeine AdvReac Intermediate Rash Verified 11/05/22 17:02 - Social History Does the pt smoke?: Yes Smoking Status: Current every day smoker Does the pt drink ETOH?: Yes Does the pt have substance abuse?: Yes - Immunizations Immunizations are current?: Yes Immunizations: TDAP current <10years - POLST Patient has POLST: No PD ED PE NORMAL - Vitals Vital signs reviewed: Yes - General General: Alert and oriented X 3, No acute distress - HEENT HEENT: Moist mucous membranes - Neck Neck: Supple, no meningeal sign - Cardiac Cardiac: RRR, Strong equal pulses - Respiratory Respiratory: No respiratory distress, Clear bilaterally - Abdomen Abdomen: Soft, Non tender, Non distended - Back Back: No CVA TTP, No spinal TTP - Derm Derm: Warm and dry, No rash - Extremities Extremities: No calf tenderness / cord - Neuro Neuro: Alert and oriented X 3 - Psych Psych: Normal mood, Normal affect Results - Vitals Vitals: Vital Signs - 24 hr 11/05/22 11/05/22 11/05/22 16:59 18:33 20:11 Temperature 37.7 C 36.6 C Heart Rate 122 H 116 H 95 Respiratory 16 20 Rate Blood Pressure 149/98 H 127/85 H 136/85 H O2 Saturation 100 100 11/05/22 21:48 Temperature Heart Rate 90 Respiratory 99 H Rate Blood Pressure 144/86 H O2 Saturation Oxygen O2 Source Room air - Labs Labs: Laboratory Tests 11/05/22 11/05/22 11/05/22 17:14 17:27 17:27 WBC 14.1 H RBC 4.64 Hgb 13.6 Hct 40.2 MCV 86.6 MCH 29.3 MCHC 33.8 RDW 12.5 Plt Count 220 MPV 12.1 H Neut # (Auto) 8.8 H Lymph # (Auto) 4.1 H Teller # (Auto) 0.8 Eos # (Auto) 0.3 Baso # (Auto) 0.0 Absolute Nucleated RBC 0.00 Nucleated RBC % 0.0 Sodium 138 Potassium 3.9 Chloride 101 Carbon Dioxide 27 Anion Gap 10.0 BUN 12 Creatinine 0.9 Estimated GFR (MDRD) 70 L Glucose 104 H Calcium 9.1 Total Bilirubin 0.6 AST 13 ALT 15 Alkaline Phosphatase 45 Total Protein 7.3 Albumin 4.2 Globulin 3.1 Albumin/Globulin Ratio 1.4 Lipase 27 Urine Color YELLOW Urine Clarity CLEAR Urine pH 6.0 Ur Specific Castana >=1.030 H Urine Protein NEGATIVE Urine Glucose (UA) NEGATIVE Urine Ketones NEGATIVE Urine Occult Blood TRACE-INTA Urine Nitrite NEGATIVE Urine Bilirubin NEGATIVE Urine Urobilinogen 0.2 (NORMAL) Ur Leukocyte Esterase NEGATIVE Ur Microscopic Review NOT INDICATED Urine Culture Comments NOT INDICATED Urine HCG, Qual NEGATIVE - Rads (name of study) pelvic US Relevant Findings:: Final report received, See rad report PD Medical Decision Making - ED course Complexity details: reviewed results, re-evaluated patient, considered differential, d/w patient ED course: 36-year-old female with abdominal and pelvic pain of unclear etiology. No acute findings on CT or ultrasound. IUD in place. Does have a mild leukocytosis. No fevers. No chills. Tolerating p.o. without difficulty. Urinalysis does not show any significant abnormalities. Given Toradol and morphine IV. Also given oxycodone orally. Will place on pain medication for home and see how she progresses over the next 1 to 2 days. She will return if she worsens. Patient counseled regarding signs and symptoms for which I believe and urgent re- evaluation would be necessary. Patient with good understanding of and agreement to plan and is comfortable going home at this time This document was made in part using voice recognition software. While efforts are made to proofread this document, sound alike and grammatical errors may occur. Respirations at time of discharge were 20, not 99 Departure - Departure Disposition: 01 Home, Self Care Clinical Impression: Abdominal pain Qualifiers: Abdominal location: unspecified location Qualified Code(s): R10.9 - Unspecified abdominal pain Condition: Good Instructions: ED Abdominal Pain Female Non-Specific Abdominal Pain Follow-Up: Rafael Mcgee MD [Primary Care Provider] - Prescriptions: Baclofen 5 mg PO Q8H PRN #10 tablet PRN Reason: Abdominal Pain Oxycodone HCl/Acetaminophen [Percocet 5-325 mg Tablet] 1 - 2 each PO Q6H PRN #10 tablet MDD 6 tabs PRN Reason: pain Comments: Please follow up with your doctor for further care. Your CT scan and US are normal today. Your IUD is in the correct position. Return if you worsen. Your prescriptions were sent to [facility] in [place]. I am prescribing a short course of narcotic pain medication for you. These are potentially dangerous and addictive medications that should be used carefully. These medications may constipate you. Take an rreo-tzp-vimuhya stool softener (docusate) twice daily with plenty of water while taking these medications. If you go 24 hours without a bowel movement, take [id number] miralax, per package instructions. Do not drink or drive while taking these medications. If you received narcotic or sedating medications while in the emergency department, do not drive for 24 hours. Store this medication in a safe, secure place and out of reach of children. It is a violation of federal law to give or sell this medication to another person or to use in a manner other than prescribed. The ED will not refill narcotic prescriptions, including prescriptions lost or stolen. To dispose of unwanted medications: 1. [facility] [address] in [place] has a medication drop box. They accept prescription medications (in pill form) Saturday through Saturday 9:00 a.m. to 5:00 p.m. 2. The [facility] [employer] accepts prescription medications (in pill form only) for disposal year round. Call for more information. 3. Contact the [facility] for the next [facility] sponsored prescription drug collection event. , [phone], or [phone]; Discharge Date/Time: 11/05/22 22:11
[2022-11-05] MEDS: SODIUM CHLORIDE 0.9% 1,000 ML IV STA (18:24)
[2022-11-05] MEDS: KETOROLAC 30 MG/ML VIAL IVP STA (18:24)
[2022-11-05] MEDS ORDERED: iohexoL-300 100 ML VIAL ONE (20:08)
[2022-11-05] MEDS: MORPHINE 2 MG/ML CARPUJECT IVP STA (20:12)
--- NOTE | 2022-11-05 20:50 | Ultrasound Report ---
PROCEDURE: Pelvic w/Transvag+Doppler Comp INDICATIONS: pelvic pain, recent IUD placement TECHNIQUE: Real-time scanning was performed of the pelvic organs, with image documentation. Additional endovagi nal scanning was necessary due to incomplete visualization of the adnexal and endometrial structures by transabdominal scanning. Doppler interrogation was performed of the ovaries bilaterally. COMPARISON: Ultrasound pelvis 05/24/2015. CT abdomen pelvis 12/18 image 22.. FINDINGS: Evaluation is limited by body habitus. Uterus: Uterus is anteverted and measures 8.1 x 4.7 x 5.1 cm. The endometrium measures up to 0.8 cm. An IUD is demonstrated within the endometrium and appears to extend into the fundus. No discrete fib roid identified on the current study. Multiple nabothian cysts are noted. Ovaries: The ovaries are not visualized. Other: No pathologic free abdominal or pelvic fluid. IMPRESSION: 1. Limited study secondary to body habitus. 2. IUD appears to extend into the fundal endometrium. 3. No definite pelvic free fluid identified. 4. Ovaries not visualized sonographically. Reviewed by: Alistair Hernandez MD on 11/05/2022 8:49 PM PDT Approved by: Alistair Hernandez MD on 11/05/2022 8:49 PM PDT Station ID: [id number]
--- NOTE | 2022-11-05 20:53 | CT Report ---
PROCEDURE: ABDOMEN/PELVIS W INDICATIONS: diffuse abd pain CONTRAST: 100mL Omni 300 TECHNIQUE: After the administration of intravenous contrast, 5 mm thick sections acquired from the diaphragms to the symphysis. 5 mm thick coronal and sagittal reformats were acquired. For radiation dose reducti on, the following was used: automated exposure control, adjustment of mA and/or kV according to simran ent size. COMPARISON: Concurrent pelvic ultrasound 11/05/2022. CT abdomen pelvis 12/18/2021. FINDINGS: Image quality: Excellent. Lung bases: Unremarkable. Heart: Heart is normal in size. ABDOMEN: Liver: No mass lesion. Gallbladder: Within normal limits without calcified gallstones. Biliary ducts: No biliary ductal dilatation. Pancreas: Unremarkable. Spleen: Normal in size. Adrenal Glands: No adrenal nodules. Kidneys and Ureters: No hydronephrosis. Stomach and Bowel: Stomach, small bowel loops, and colon are normal in caliber and wall thickness. T he appendix is normal in appearance. A few colonic diverticula are present without acute diverticulit is. Peritoneum: No abnormal intraperitoneal fluid. No free air. Ventral Wall: No hernia. Abdominal Nodes: No retroperitoneal or mesenteric adenopathy by size criteria. Vessels: Aorta and inferior vena cava are normal in size. PELVIS: Pelvic Organs:An IUD extends into the fundal endometrium.No adnexal masses. Ovaries appear within n ormal size limits. Bladder: Unremarkable. Pelvic Nodes: No enlarged lymph nodes. Miscellaneous: No inguinal hernias. Bones: Visualized osseous structures demonstrate no suspicious lesions. IMPRESSION: 1. No acute intra-abdominal abnormality. 2. IUD appears in appropriate position, extending into the fundal endometrium. Reviewed by: Alistiar Hernandez MD on 11/05/2022 8:52 PM PDT Approved by: Alistair Hernandez MD on 11/05/2022 8:52 PM PDT Station ID: [id number]
[2022-11-05] MEDS: iohexoL-300 100 ML VIAL IVP ONE (21:38)
[2022-11-05] MEDS: oxyCODONE 5 MG TABLET PO STA (21:47)
[2022-11-05 21:48] VITALS: BP 144/86
== END 2022-11-05 22:11 | disposition home or self-care (01) ==
LOC: ED 16:49
DX: R10.2 Pelvic and perineal pain (principal); F17.200 Nicotine dependence, unspecified, uncomplicated
CPT/HCPCS: 36415; 74177; 76830; 76856; 80053; 81003; 81025; 83690; 85025; 93975; 96374; 96375; 99283; 99284; A9270; Q9967; 81001; 87086

== ENCOUNTER 2022-11-15 08:30 | Outpatient (CLI) | payer MEDICAID ==
--- NOTE | 2022-11-15 08:40 | Sleep Patient Instructions ---
Sleep Center Visit Summary - Patient Visit Information Reason for Visit: Sleep study follow up - Patient Instructions Instructions Attached: CPAP, CPAP Dc Additional Instructions: You are being started on CPAP therapy with pressure setting at 4-15 cmH2O. You will need to call the sleep care office to set up your follow up once you have your APAP machine and we will schedule a visit to check compliance and response to therapy at that time. You may call the office with any concerns about pressure feeling too low or too much for adjustment, if needed. You should contact DME for any questions or concerns about mask or equipment. Please follow up in the sleep care office one month after obtaining CPAP. - Clinic Information Contact: [facility] [address] [place] [address] [email or web address] T: [phone]
[2022-11-15 08:59] VITALS: BP 118/76
--- NOTE | 2022-11-15 08:59 | SLEEP CARE CONSULTATION ---
Information from patient questionnaire entered by Ban Clay. I have reviewed and concur with the information entered by Ban Clay. This document represents the service I personally performed and the decisions made by me, Angelina Yost ARNP. History of Present Illness Service Date and Time: 11/15/2022 0830 Initial [place] Sleepiness Scale score: 20 (09/28/22) Current [place] Sleepiness Scale score: 20 (11/15/22) Additional HPI information: CORY OSBORNE returns for follow up and results of the recently performed polysomnography. I explained the pathophysiology behind obstructive sleep apnea. We then spent quite a bit of time discussing different treatment options. For mild obstructive sleep apnea, surgery and oral appliance are alternatives to nasal CPAP therapy but in moderate or severe cases, nasal CPAP is the most effective and reliable treatment. I reviewed the impact of weight changes on sleep apnea and strongly recommended losing weight. After some discussion, the patient opted to go with the nasal CPAP therapy. Nasal autoCPAP set at 4-15 cmH20 will be ordered with rationale explained. A manual titration study will be ordered if unable to find optimal pressure with office adjustments. I explained how CPAP machine works and what to expect when using the machine. Using CPAP every night in order to get used to it was emphasized. Patient advised to put CPAP mask on before getting into bed so as not to fall asleep without CPAP. To assist acclimation to CPAP use, it could also be used for a short time during day while reading or watching TV. The patient was instructed to call the CPAP supplier to discuss any mechanical problem that may occur. If the mask given is uncomfortable or is difficult to keep on through the night even with adjustment, contact the CPAP supplier as many will replace with another mask style if notified before 30 days. If snoring or perceives is not getting enough air or too much air from the machine, notify this office. Patient counseled not drink alcohol less than 4 hours before bedtime as it can increase snoring and apnea. Patient was cautioned about risks of drowsy driving until sleepiness symptoms resolve. Patient denies drowsy driving. Sleep Study - Results Type of Sleep Study: Polysomnography (COMPLETED 10/17/22) Prior sleep studies: No Polysomnography/Home Sleep Study results: IMPRESSION: The quality of the study is good. The patient had slightly reduced sleep efficiency due to frequent awakenings throughout the night. The sleep architecture was abnormal for sleep fragmentation and lack of REM sleep. Respiratory monitoring showed moderate obstructive sleep apnea-hypopnea (AHI = 16.6) associated with frequent arousals, oxyhemoglobin desaturation and minimal hypoxia (rachael oxygen saturation of 89%). The patient only slept supine during this study. Snore was loud in intensity. There was no significant periodic leg movement of sleep. Cardiac rhythm was normal sinus rhythm without significant arrhythmia. No abnormal behavior (parasomnia) observed during the night. Allergies and Home Medications Known drug allergies: Yes (codeine) Drug allergies reviewed: Yes Home medication list reviewed: Yes (omeprazole 20 mg bid) Allergy and home medication list: Allergies codeine Adverse Reaction (Intermediate, Verified 11/14/22 08:44) Rash Review of Systems Review of systems same as previous: No (gastric reflux/stomach pain) Physical Exam Vital signs obtained and entered by: BAN Jimenes MA Blood Pressure: 118/76 (LEFT ARM) Cuff size: regular Heart Rate: 84 O2 Saturation: 98 Height: 5 ft 6 in Weight: 289 lb 6.4 oz Body Mass Index: 46.7 BMI Classification: Morbidly Obese Impression and Plan 1. Obstructive Sleep Apnea-Hypopnea Syndrome, moderate, with lowest oxygen saturation of 89%. Obviously this is the cause of the patients symptoms of unrefreshed sleep, and excessive daytime sleepiness. Positive pressure therapy could benefit fibromyalgia, anxiety and depression. As mentioned above, the patient will be started on nasal autoCPAP therapy with pressure set at 4-15 cmH2 O. A manual titration study will be completed if unable to find optimal treatment pressure with office adjustments. Compliance guidelines also reviewed. A copy of compliance guidelines will be given for reference at check out. * Nasal auto CPAP therapy, pressure at 4-15 cm H2O. * Attempt to lose weight. * Avoid alcohol consumption near bedtime. * Avoid supine sleep until using CPAP. * The patient is again cautioned about driving until sleepiness completely resolves. * Return one month after CPAP obtained. I will assess response to therapy and compliance at that time. Counseling Topics: Weight loss health impact Prescriptions: Auto CPAP Visit Type: In Office Time Spent with Patient (minutes): 21 Provider Statement: I spent 100% of the Face to Face Visit with the patient with greater than 50% spent counseling the patient and coordination of care.
== END 2022-11-15 08:31 | disposition home or self-care (01) ==
LOC: SC 08:30
PROVIDERS: ATTEND Nurse Practitioner Family
DX: G47.33 Obstructive sleep apnea (adult) (pediatric) (principal); E66.01 Morbid (severe) obesity due to excess calories; Z68.42 Body mass index [BMI] 45.0-49.9, adult
CPT/HCPCS: 99212; 99213

== ENCOUNTER 2023-07-10 17:36 | Emergency (ER) | payer MEDICAID ==
[2023-07-10 18:00] VITALS: BP 154/101; O2SAT 96
--- NOTE | 2023-07-10 19:13 | XRAY Report ---
PROCEDURE: Chest 1V INDICATIONS: diff breathing/soa/coughing TECHNIQUE: One view of the chest was acquired. COMPARISON: 01/19/2021. FINDINGS: Surgical changes and devices: None. Lungs and pleura: No pleural effusions or pneumothorax. Lungs are clear. Right hemidiaphragm is m ildly elevated. Mediastinum: Mediastinal contours appear normal. Heart size is normal. Bones and chest wall: No suspicious bony lesions. Overlying soft tissues appear unremarkable. IMPRESSION: No acute cardiopulmonary process. Reviewed by: Hussein Talley MD on 07/10/2023 7:12 PM PST Approved by: Hussein Talley MD on 07/10/2023 7:12 PM PST Station ID: [id number]
[2023-07-10 19:17] LABS: B. PARAPERTUSSIS- RESP PCR PAN NOT DETECTED; B. PERTUSSIS- RESP PCR PANEL NOT DETECTED; C. PNEUMONIAE- RESP PCR PANEL NOT DETECTED; CORONAVIRUS 229E-RESP PCR NOT DETECTED; CORONAVIRUS HKU1-RESP PCR NOT DETECTED; CORONAVIRUS NL63-RESP PCR NOT DETECTED; CORONAVIRUS OC43-RESP PCR NOT DETECTED; HUMAN METAPNEUMOVIRUS NOT DETECTED; INFLUENZA A- RESP PCR PANEL NOT DETECTED; INFLUENZA B - RESP PCR PANEL NOT DETECTED; M. PNEUMONIAE- RESP PCR PANEL NOT DETECTED; PARAINFLUENZA VIRUS 1 NOT DETECTED; PARAINFLUENZA VIRUS 2 NOT DETECTED; PARAINFLUENZA VIRUS 3 NOT DETECTED; PARAINFLUENZA VIRUS 4 NOT DETECTED; RHINOVIRUS/ENTEROVIRUS NOT DETECTED; RSV- RESP PCR PANEL NOT DETECTED; SARS-CoV-2 -RESP PCR PANEL NOT DETECTED
--- NOTE | 2023-07-10 19:48 | Ultrasound Report ---
PROCEDURE: Duplex Ext Veins Right INDICATIONS: RLE pain TECHNIQUE: Real-time imaging, as well as color and pulse Doppler interrogation, were performed of the lower extr emity deep veins from the inguinal ligament to the popliteal fossa. Attempted visualization of the ca lf veins was performed. COMPARISON: None. FINDINGS: The deep veins are normally compressible, and free of intraluminal thrombus. Color and pu lse Doppler demonstrate normal phasic intraluminal flow. There is normal augmentation response to di stal compression maneuver. Hyperechoic avascular fluid collection is seen at the posterior medial aspect of the calf measuring 1 0.2 x 2.2 x 6.6 cm, suspicious for hematoma. There is overlying soft tissue edema. Small medial popli teal cyst is seen measuring 4.5 x 1.2 x 3.6 cm. Physiologic amount of joint fluid is present. IMPRESSION: 1.No deep venous thrombosis of the visualized lower extremity. 2.Complex fluid collection measuring up to 10.2 cm in length at the medial calf is suspicious for a h ematoma. 3.Small medial popliteal cyst. Reviewed by: Hussein Talley MD on 07/10/2023 7:47 PM PST Approved by: Hussein Talley MD on 07/10/2023 7:47 PM PST Station ID: [id number]
[2023-07-10] MEDS ORDERED: oxyCODONE 5 MG TABLET PO STA (20:05)
--- NOTE | 2023-07-10 20:07 | ED Physician Documentation ---
PD HPI LOWER EXT INJURY - Stated complaint Stated Complaint: RT LEG PX - Chief complaint Chief Complaint: Ext Problem - History obtained from History obtained from: Patient - Additional information Additional information: She developed atraumatic right leg pain about 3 weeks ago. She has been having on and off problems with the knee and saw Ortho last year without clear diagnosis. She was seen at the walk-in clinic and referred here for concern for DVT. PD PAST MEDICAL HISTORY - Past Medical History Cardiovascular: None Respiratory: None Endocrine/Autoimmune: None Psych: Depression, Anxiety Musculoskeletal: Fibromyalgia, Chronic back pain - Past Surgical History Past Surgical History: Yes Ortho: Arthroscopic surgery /[employer]: section - Present Medications Home Medications: Ambulatory Orders Medication Instructions Recorded Confirmed DULoxetine [Cymbalta] See Rx Instructions .ROUTE .COMPLEX 09/28/22 07/10/23 buPROPion HCL [Wellbutrin Xl] See Rx Instructions .ROUTE .COMPLEX 09/28/22 07/10/23 Oxycodone HCl/Acetaminophen 1 - 2 each PO Q6H PRN #14 tablet 07/10/23 [Percocet 5-325 mg Tablet] - Allergies Allergies/Adverse Reactions: Allergies Allergy/AdvReac Type Severity Reaction Status Date / Time codeine AdvReac Intermediate Rash Verified 07/10/23 17:59 - Social History Does the pt smoke?: Yes Smoking Status: Current every day smoker Does the pt drink ETOH?: Yes Does the pt have substance abuse?: Yes - Immunizations Immunizations are current?: Yes Immunizations: TDAP current <10years - POLST Patient has POLST: No PD ED PE NORMAL - Vitals Vital signs reviewed: Yes - General General: Alert and oriented X 3, No acute distress - Extremities Extremities: Other (She does have pretty significant swelling of the right calf and some tenderness. No pain out of proportion to exam and no serious pain with passive range of motion so not consistent with a compartment syndrome. Nothing to suggest cellulitis.) - Neuro Neuro: Alert and oriented X 3, Normal speech - Psych Psych: Normal mood, Normal affect Results - Vitals Vitals: Vital Signs - 24 hr 07/10/23 17:51 Temperature 36.4 C L Heart Rate 83 Respiratory 16 Rate Blood Pressure 154/101 H O2 Saturation 96 Oxygen O2 Source Room air - Labs Labs: Laboratory Tests 07/10/23 18:00 Nasal Adenovirus (PCR) NOT DETECTED Nasal B. parapertussis DNA (PCR) NOT DETECTED Nasal Coronavir 229E PCR NOT DETECTED Nasal Coronavir HKU1 PCR NOT DETECTED Nasal Coronavir NL63 PCR NOT DETECTED Nasal Coronavir OC43 PCR NOT DETECTED Nasal Enterovir/Rhinovir PCR NOT DETECTED Nasal Influenza B PCR NOT DETECTED Nasal Influenza A PCR NOT DETECTED Nasal Parainfluen 1 PCR NOT DETECTED Nasal Parainfluen 2 PCR NOT DETECTED Nasal Parainfluen 3 PCR NOT DETECTED Nasal Parainfluen 4 PCR NOT DETECTED Nasal RSV (PCR) NOT DETECTED Nasal B.pertussis DNA PCR NOT DETECTED Nasal C.pneumoniae (PCR) NOT DETECTED Efra Human Metapneumo PCR NOT DETECTED Nasal M.pneumoniae (PCR) NOT DETECTED Nasal SARS-CoV-2 (PCR) NOT DETECTED - Rads (name of study) Right knee ultrasound showing a large hematoma and small Brody's cyst. Relevant Findings:: Final report received PD Medical Decision Making - ED course ED course: 37-year-old woman sent in for DVT rule out. She has a hematoma but no DVT. Conservative care and orthopedic follow-up was advised. Also a Brody's cyst and placed in a knee immobilizer. Departure - Departure Disposition: 01 Home, Self Care Clinical Impression: Hematoma of right lower leg, Bakers cyst Condition: Good Record reviewed to determine appropriate education?: Yes Instructions: ED Hematoma Follow-Up: [facility] [Provider Group] Prescriptions: Oxycodone HCl/Acetaminophen [Percocet 5-325 mg Tablet] 1 - 2 each PO Q6H PRN #14 tablet PRN Reason: pain Comments: I sent your prescription electronically to the [facility] in [place]. As discussed, you are found to have large fluid collection in the leg, likely hematoma and also a small Brody's cyst. Not clear to me completely if these are related or coincidental but either way probably reasonable to follow-up again with the orthopedics office for evaluation of this. You can wear the knee splint when up and around for comfort, but you do not have to be mandaen with it. Return for new or worsening symptoms. I am prescribing a short course of narcotic pain medication for you. These are potentially dangerous and addictive medications that should be used carefully. These medications may constipate you. Take an lgqb-dsn-pkmotmq stool softener (docusate) twice daily with plenty of water while taking these medications. If you go 24 hours without a bowel movement, take gwzd-usb-ycmwfsb miralax, per package instructions. Do not drink or drive while taking these medications. If you received narcotic or sedating medications while in the emergency department, do not drive for 24 hours. Store this medication in a safe, secure place and out of reach of children. It is a violation of federal law to give or sell this medication to another person or to use in a manner other than prescribed. The ED will not refill narcotic prescriptions, including prescriptions lost or stolen. To dispose of unwanted medications: 1. [facility] provides a drop box for medication in pill form only (no liquids) 8:00 am to 4:30 p.m. Saturday-Saturday in the lobby of the [facility], [address] [place] [address]. Empty pills into ziplock bag before disposal. Call [phone] for information. 2.[employer] is a free service available to all [facility] residents. Go to [email or web address] Note that many narcotic pain relievers also contain Tylenol/acetaminophen. Please ensure that your total dose of acetaminophen from all sources does not exceed 3 g (3000 mg) per day. Forms: PCP List
== END 2023-07-10 20:21 | disposition home or self-care (01) ==
LOC: ED 17:36
DX: M71.21 Synovial cyst of popliteal space [Baker], right knee (principal); S80.11XA Contusion of right lower leg, initial encounter; X58.XXXA Exposure to other specified factors, initial encounter; F17.200 Nicotine dependence, unspecified, uncomplicated
CPT/HCPCS: 71045; 87633; 93971; 99283; 99284; A9270

== ENCOUNTER 2023-07-22 08:00 | Outpatient (CLI) | payer MEDICAID ==
--- NOTE | 2023-07-22 15:51 | XRAY Report ---
PROCEDURE: Knee 4 View RT INDICATIONS: RIGHT KNEE PAIN TECHNIQUE: 4 views of the knee(s) were acquired. COMPARISON: None. FINDINGS: Bones: Minimal tricompartmental degenerative changes of the right knee. No fractures or dislocations . No suspicious bony lesions. Soft tissues: Small-moderate knee joint effusion. No suspicious soft tissue calcifications or masses . IMPRESSION: Right knee without acute fracture or dislocation. Minimal tricompartmental osteoarthrosis with small- moderate-sized joint effusion. Reviewed by: Sheldon Knox MD on 07/22/2023 3:49 PM PST Approved by: Sheldon Knox MD on 07/22/2023 3:49 PM PST Station ID: [id number]
--- NOTE | 2023-07-22 15:55 | XRAY Report ---
PROCEDURE: Tib/Fib RT INDICATIONS: RIGHT KNEE PAIN TECHNIQUE: 2 views of the tibia and fibula were acquired. COMPARISON: None. FINDINGS: Bones: No acute fractures or dislocations. No suspicious bony lesions. Minimal degenerative changes of the right knee. Soft tissues: No suspicious soft tissue calcifications or masses. Mild soft tissue swelling. IMPRESSION: Right tibia/fibula without acute fracture or dislocation. Minimal degenerative changes of the right knee. If there is continued clinical concern for pathology or occult fracture, consider follow-up imaging w ith repeat radiographs in 10-14 days and possible advanced imaging (CT, MRI, bone scan) if symptoms p ersist. Reviewed by: Sheldon Knox MD on 07/22/2023 3:54 PM PST Approved by: Sheldon Knox MD on 07/22/2023 3:54 PM PST Station ID: [id number]
== END 2023-07-22 23:59 | disposition home or self-care (01) ==
LOC: DI.WOS 08:00
PROVIDERS: ATTEND Physician Assistant Surgical
DX: M17.11 Unilateral primary osteoarthritis, right knee (principal); M25.461 Effusion, right knee

== ENCOUNTER 2023-08-30 17:00 | Outpatient (CLI) | payer MEDICAID | END 2023-08-30 17:15 | disposition home or self-care (01) | LOC: LAB.N 17:00 | PROVIDERS: ATTEND Physician Assistant Medical | DX: R30.0 Dysuria (principal) | CPT/HCPCS: 87086 ==

== ENCOUNTER 2023-11-25 17:46 | Emergency (ER) | payer MEDICAID ==
[2023-11-25 18:12] LABS: BASOPHILS # (AUTO) 0.1 10^3/uL (0.0-0.1); BASOPHILS % (AUTO) 0.6 %; EOSINOPHILS # (AUTO) 0.1 10^3/uL (0.0-0.7); HCT - HEMATOCRIT 46.9 % (37.0-47.0); HGB - HEMOGLOBIN 15.3 g/dL (12.0-16.0); LYMPHOCYTES # (AUTO) 3.3 10^3/uL (1.5-3.5); LYMPHOCYTES % (AUTO) 36.4 %; MEAN CORPUSCULAR HEMOGLOBIN 29.5 pg (27.0-31.0); MEAN CORPUSCULAR HGB CONC 32.6 g/dL (32.0-36.0); MEAN CORPUSCULAR VOLUME 90.5 fL (81.0-99.0); MEAN PLATELET VOLUME 11.8 fL (7.9-10.8); MONOCYTES # (AUTO) 0.4 10^3/uL (0.0-1.0); MONOCYTES % (AUTO) 4.9 %; NEUTROPHILS # (AUTO) 5.1 10^3/uL (1.5-6.6); PLT - PLATELET COUNT 274 10^3/uL (130-450); RED BLOOD COUNT 5.18 10^6/uL (4.20-5.40); RED CELL DISTRIBUTION WIDTH 12.4 % (12.0-15.0)
[2023-11-25 18:25] LABS: ALBUMIN 4.9 g/dL (3.2-5.5); ALBUMIN/GLOBULIN RATIO 1.7 (1.0-2.2); ALKALINE PHOSPHATASE 42 IU/L (42-121); ALT ALANINE AMINOTRANSFERASE 28 IU/L (10-60); AST ASPARTATE AMINOTRANSFERASE 17 IU/L (10-42); BILIRUBIN,TOTAL 0.3 mg/dL (0.2-1.0); BUN - BLOOD UREA NITROGEN 9 mg/dL (6-20); CALCIUM 9.6 mg/dL (8.5-10.3); CARBON DIOXIDE - CO2 30 mmol/L (21-32); CHLORIDE 102 mmol/L (101-111); CREATININE 0.9 mg/dL (0.6-1.3); GFR - MDRD 70 (>89); GLUCOSE 146 mg/dL (74-104); POTASSIUM 3.8 mmol/L (3.5-4.5); SODIUM 138 mmol/L (135-145); TOTAL PROTEIN 7.8 g/dL (6.4-8.9)
--- NOTE | 2023-11-25 18:50 | ED Physician Documentation ---
PD HPI ABD PAIN - Stated complaint Stated Complaint: ABD PX - Chief complaint Chief Complaint: Abd Pain - History obtained from History obtained from: Patient - History of Present Illness Timing - onset: How many days ago (2) Timing - duration: Days (2) Timing - details: Gradual onset Pain level max: 10 Pain level now: 10 Quality: Pain Location: Suprapubic Associated symptoms: No: Fever, Nausea, Vomiting, Hematemesis, Diarrhea, Constipation, Melena, Hematochezia, Dysuria, Hematuria, Chest pain, Dizzy, Near syncope / syncope, Loss of appetite, Weight loss, Vaginal bleeding, Vaginal dc - Additional information Additional information: 38-year-old female presents to the emergency department lower abdominal pain. She states ongoing for the past 2 to 3 days. She states it feels like a "pressure" in her lower abdomen. Faith she states the pain has been gradually worsening. Now states the pain is a 10 out of 10. She is currently on her menses. Denies any possibility of . No vaginal bleeding or discharge. No dysuria or urinary symptoms. She states that she has a history of of uterine fibroids, but has never had pain like this from them. Review of Systems Constitutional: denies: Fever, Chills : denies: Now EGA Skin: denies: Rash Musculoskeletal: denies: Neck pain, Back pain Neurologic: denies: Headache PD PAST MEDICAL HISTORY - Past Medical History Past Medical History: Yes Cardiovascular: None Respiratory: None Endocrine/Autoimmune: None Psych: Depression, Anxiety Musculoskeletal: Fibromyalgia, Chronic back pain - Past Surgical History Past Surgical History: Yes Ortho: Arthroscopic surgery /[employer]: section - Present Medications Home Medications: Ambulatory Orders Medication Instructions Recorded Confirmed DULoxetine [Cymbalta] See Rx Instructions .ROUTE .COMPLEX 09/28/22 07/10/23 buPROPion HCL [Wellbutrin Xl] See Rx Instructions .ROUTE .COMPLEX 09/28/22 Oxycodone HCl/Acetaminophen 1 - 2 each PO Q6H PRN #14 tablet 07/10/23 [Percocet 5-325 mg Tablet] Cyclobenzaprine [Flexeril] 10 mg PO TID PRN #7 tablet 11/26/23 Nitrofurantoin [Macrobid] 100 mg PO BID #10 cap 11/26/23 Ondansetron Odt [Zofran] 4 mg TL Q6H PRN #10 tablet 11/26/23 oxyCODONE [Roxicodone] 5 - 10 mg PO Q6H PRN #14 tablet 11/26/23 MDD 6 - Allergies Allergies/Adverse Reactions: Allergies Allergy/AdvReac Type Severity Reaction Status Date / Time codeine AdvReac Intermediate Rash Verified 11/25/23 17:51 - Social History Does the pt smoke?: Yes Smoking Status: Current every day smoker Does the pt drink ETOH?: Yes Does the pt have substance abuse?: Yes - Immunizations Immunizations are current?: Yes Immunizations: TDAP current <10years - POLST Patient has POLST: No PD ED PE NORMAL - Vitals Vital signs reviewed: Yes - General General: Alert and oriented X 3, No acute distress - HEENT HEENT: Moist mucous membranes - Neck Neck: Supple, no meningeal sign - Cardiac Cardiac: RRR, Strong equal pulses - Respiratory Respiratory: No respiratory distress, Clear bilaterally - Abdomen Abdomen: Soft, Non distended, Other (Diffuse tenderness to palpation across the lower abdomen. No peritoneal signs) - Female Female : Pt declined - Back Back: No CVA TTP, No spinal TTP - Derm Derm: Warm and dry - Extremities Extremities: No edema - Neuro Neuro: Alert and oriented X 3 - Psych Psych: Normal mood, Normal affect Results - Vitals Vitals: Vital Signs - 24 hr 11/25/23 11/25/23 11/25/23 17:51 20:00 22:00 Temperature 36.8 C Heart Rate 110 H 99 109 H Respiratory 16 18 18 Rate Blood Pressure 160/100 H 150/95 H 145/95 H O2 Saturation 98 98 97 Oxygen O2 Source Room air - Labs Labs: Laboratory Tests 11/25/23 11/25/23 11/25/23 18:05 18:05 18:45 WBC 9.0 RBC 5.18 Hgb 15.3 Hct 46.9 MCV 90.5 MCH 29.5 MCHC 32.6 RDW 12.4 Plt Count 274 MPV 11.8 H Neut # (Auto) 5.1 Lymph # (Auto) 3.3 Bea[place]gard # (Auto) 0.4 Eos # (Auto) 0.1 Baso # (Auto) 0.1 Absolute Nucleated RBC 0.00 Nucleated RBC % 0.0 Sodium 138 Potassium 3.8 Chloride 102 Carbon Dioxide 30 Anion Gap 6.0 BUN 9 Creatinine 0.9 Estimated GFR (MDRD) 70 L Glucose 146 H Calcium 9.6 Total Bilirubin 0.3 AST 17 ALT 28 Alkaline Phosphatase 42 Total Protein 7.8 Albumin 4.9 Globulin 2.9 Albumin/Globulin Ratio 1.7 Lipase < 10 L Urine Color LT. YELLOW Urine Clarity HAZY Urine pH 6.5 Ur Specific [place] 1.020 Urine Protein NEGATIVE Urine Glucose (UA) NEGATIVE Urine Ketones NEGATIVE Urine Occult Blood LARGE H Urine Nitrite POSITIVE H Urine Bilirubin NEGATIVE Urine Urobilinogen 1 (NORMAL) Ur Leukocyte Esterase NEGATIVE Urine RBC 0-5 Urine WBC 6-10 H Ur Squamous Epith Cells FEW Squamous Urine Bacteria Many H Ur Microscopic Review INDICATED Urine Culture Comments INDICATED Urine HCG, Qual NEGATIVE - Rads (name of study) CT abdomen pelvis Relevant Findings:: Final report received, See rad report Pelvic ultrasound Relevant Findings:: Prelim report reviewed (Verbal prelim report received from echo vasc tech) PD Medical Decision Making - ED course Complexity details: reviewed results, re-evaluated patient, considered differential, d/w patient, d/w managed services consultant ED course: 38-year-old female with abdominal pain. She was given IV Dilaudid, IV Toradol, pain well-controlled. She is texting on her phone and no apparent distress. Abdomen is soft, mildly tender on serial exam. CT shows a right ovarian cyst. Ultrasound was ordered. Ultrasound confirms the right ovarian cyst, there is flow to the ovary. Patient states that her pain is well-controlled at this time. She does request a dose of a muscle relaxant to help with the pain medications that she can sleep tonight. This was given. Discussed the case w warren Arita, gynecology on-call, recommends follow-up in the office for further care. Will prescribe pain medication for home. Patient will return if she worsens. Patient counseled regarding torsion and intermittent torsion. Also counseled regarding ovarian cyst rupture. Need for follow-up and repeat ultrasound with her doctor. Patient counseled regarding signs and symptoms for which I believe and urgent re-evaluation would be necessary. Patient with good understanding of and agreement to plan and is comfortable going home at this time This document was made in part using voice recognition software. While efforts are made to proofread this document, sound alike and grammatical errors may occur. Departure - Departure Disposition: Home, Self Care Clinical Impression: UTI (urinary tract infection) Qualifiers: Urinary tract infection type: acute cystitis Hematuria presence: without hematuria Qualified Code(s): N30.00 - Acute cystitis without hematuria Ovarian cyst Qualifiers: Laterality: right Qualified Code(s): N83.201 - Unspecified ovarian cyst, right side Condition: Good Instructions: ED Cyst Ovarian, ED UTI Cystitis Female Follow-Up: your,doctor in 1 week [Other] [facility] [Provider Group] Prescriptions: Cyclobenzaprine [Flexeril] 10 mg PO TID PRN #7 tablet PRN Reason: Spasms Nitrofurantoin [Macrobid] 100 mg PO BID #10 cap oxyCODONE [Roxicodone] 5 - 10 mg PO Q6H PRN #14 tablet MDD 6 PRN Reason: pain Ondansetron Odt [Zofran] 4 mg TL Q6H PRN #10 tablet PRN Reason: Nausea / Vomiting Comments: Your prescription was sent to [facility] in [place]. I did discuss your case with gynecology, Dr. Arita, she recommends that you follow-up in clinic for further care. Please return if your pain is uncontrolled or you are having worsening symptoms as this could be a sign of ovarian torsion. There is blood flow to your ovary tonight on ultrasound. You should have a repeat ultrasound in 3 to 4 weeks with your doctor. I am prescribing a short course of narcotic pain medication for you. These are potentially dangerous and addictive medications that should be used carefully. These medications may constipate you. Take an cadr-ble-johynmx stool softener (docusate) twice daily with plenty of water while taking these medications. If you go 24 hours without a bowel movement, take ieij-cba-qzbcenl miralax, per package instructions. Do not drink or drive while taking these medications. If you received narcotic or sedating medications while in the emergency department, do not drive for 24 hours. Store this medication in a safe, secure place and out of reach of children. It is a violation of federal law to give or sell this medication to another person or to use in a manner other than prescribed. The ED will not refill narcotic prescriptions, including prescriptions lost or stolen. To dispose of unwanted medications: 1. [facility] at [address] [facility] [facility] in [place] has a medication drop box. They accept prescription medications (in pill form) Saturday through Saturday 9:00 a.m. to 5:00 p.m. 2. [facility] accepts prescription medications (in pill form only) for disposal year round. Call for more information. 3. Contact the [facility] for the next [facility] sponsored prescription drug collection event. , [phone], or [phone]; Forms: PCP List
[2023-11-25 18:55] LABS: LIPASE < 10 U/L (11-82)
[2023-11-25] MEDS ORDERED: iohexoL-300 100 ML VIAL ONE (19:03)
[2023-11-25] MEDS: HYDROmorphone 1 MG/ML CARPUJECT IVP STA ×2 (19:19→21:21)
[2023-11-25] MEDS: ONDANSETRON 4 MG/2 ML VIAL IVP STA ×2 (19:19→23:02)
[2023-11-25 19:21] LABS: BILIRUBIN,URINE NEGATIVE (NEGATIVE); GLUCOSE, URINE (UA) NEGATIVE (NEGATIVE); KETONES,URINE (UA) NEGATIVE (NEGATIVE); LEUKOCYTE ESTERASE, URINE NEGATIVE (NEGATIVE); NITRITE,URINE POSITIVE (NEGATIVE); OCCULT BLOOD,URINE LARGE (NEGATIVE); PH,URINE 6.5 PH (5.0-7.5); PROTEIN,URINE NEGATIVE (NEGATIVE); UROBILINOGEN,URINE 1 (NORMAL) E.U./dL (NORMAL)
[2023-11-25 19:26] LABS: CLARITY,URINE HAZY (CLEAR); HCG UR QUAL NEGATIVE
[2023-11-25 19:40] LABS: RBC,URINE 0-5 /HPF (0-5); SQUAMOUS EPITHELIAL CELL,UR FEW Squamous (<= Few)
[2023-11-25 19:41] LABS: BACTERIA,URINE Many /HPF (None Seen)
[2023-11-25] MEDS: iohexoL-300 100 ML VIAL IVP ONE (19:54)
[2023-11-25] MEDS: KETOROLAC 30 MG/ML VIAL IVP STA (20:16)
--- NOTE | 2023-11-25 20:43 | CT Report ---
PROCEDURE: Abdomen/Pelvis W INDICATIONS: diffuse abd pain, vomiting CONTRAST: 100ml TECHNIQUE: After the administration of intravenous contrast, a CT scan of the abdomen and pelvis was performed. Images were recorded and evaluated at appropriate window settings. Reformats: coronal and sagittal. F or radiation dose reduction, the following was used: automated exposure control, adjustment of mA and /or kV according to patient size. COMPARISON: CT abdomen pelvis 12/18/2021 FINDINGS: Image quality: Diagnostic. Lower chest: Minimal appearance of hazy opacity within the right base. Liver: No solid mass. Gallbladder: Biliary tree: No intrahepatic or extrahepatic dilation, accounting for age. Spleen: No splenomegaly. Pancreas: No pancreatic ductal dilation. Adrenals: No adrenal nodule. Kidneys and ureters: No hydronephrosis. No renal cystic lesion which requires follow up. No solid mas s. Stomach, bowel and peritoneum: No gastric or small bowel dilation. No abnormal wall thickening. No pa thologic free fluid. Lymph nodes: No central or retroperitoneal adenopathy. Vessels: No infrarenal aortic aneurysm. Patent portal vein. PELVIS Reproductive organs: IUD is present. Right ovarian cyst measuring 4.3 cm. Bladder: No abnormal wall thickening, accounting for underdistention. Pelvic lymph nodes: No pelvic adenopathy by size criteria. Bones: No aggressive osseous abnormality. Other: No significant ventral or inguinal hernia. IMPRESSION: Right ovarian cyst measuring 4.3 cm. Reviewed by: Saira De León MD on 11/25/2023 8:03 PM PDT Approved by: Saira De León MD on 11/25/2023 8:03 PM PDT Station ID: [id number]
[2023-11-25] MEDS: MORPHINE 2 MG/ML CARPUJECT IVP STA (23:02)
[2023-11-25] MEDS: cefTRIAXone 1 GM VIAL IVP STA (23:03)
[2023-11-26] MEDS: oxyCODONE 5 MG TABLET PO STA (00:24)
[2023-11-26] MEDS: CYCLOBENZAPRINE 10 MG TABLET PO STA (00:24)
[2023-11-26 00:34] VITALS: BP 150/102; O2SAT 99
--- NOTE | 2023-11-26 01:03 | Ultrasound Report ---
PROCEDURE: Pelvic w/Transvag+Doppler Comp INDICATIONS: pelvic pain, R ovarian cyst on CT TECHNIQUE: Real-time scanning was performed of the pelvic organs, with image documentation. Additional endovagi nal scanning was necessary due to incomplete visualization of the adnexal and endometrial structures by transabdominal scanning. Doppler interrogation was performed of the ovaries bilaterally. COMPARISON: Correlation made to CT performed the same day. FINDINGS: Uterus: Uterus is anteverted and normal in size at 7.6 x 3.1 x 6.0 cm. The myometrium is slightly h eterogeneous.. The endometrium measures 6.8 mm in combined thickness. There is an IUD in place. Nor mal vascular flow in the uterus. There are several simple appearing nabothian cysts in the cervix. Ovaries: The right ovary measures 5.4 x 4.0 x 4.7 cm, with a calculated ovarian volume of 52.9 cc. The left ovary was not well seen. There is a dominant simple cyst within the right ovary measuring 5. 4 x 3.9 x 4.0 cm. Less than 12 follicles can be seen in the right ovary. No adnexal masses are seen. Other: No pathologic free abdominal or pelvic fluid. IMPRESSION: 5.4 cm right ovarian simple cyst. This can be physiologic for a premenopausal female. IUD in appropriate position. Slightly heterogeneous uterus can be seen with adenomyosis. Reviewed by: Shannan Raman MD on 11/26/2023 1:02 AM PDT Approved by: Shannan Raman MD on 11/26/2023 1:02 AM PDT Station ID: [id number]
== END 2023-11-26 00:31 | disposition home or self-care (01) ==
LOC: ED 17:46
DX: N83.201 Unspecified ovarian cyst, right side (principal); N30.00 Acute cystitis without hematuria; F17.200 Nicotine dependence, unspecified, uncomplicated
CPT/HCPCS: 36415; 74177; 76830; 76856; 80053; 81001; 81025; 83690; 85025; 87086; 93975; 96374; 96375; 96376; 99284; 99285; A9270; J1170; Q9967; 81003; 87181